=== PATIENT | female | born 1980 | race Caucasian/White ===

== ENCOUNTER 2020-12-23 08:08 | Outpatient (REF) | payer OTHER, SELFPAY | END 2020-12-23 08:09 | disposition home or self-care (01) | LOC: HO.MDS 08:08 | PROVIDERS: Visit Provider Internal Medicine Medical Oncology | DX: D50.9 Iron deficiency anemia, unspecified (principal) | CPT/HCPCS: 96365; 96366; 96375; J1200; J1750; Q0163 ==

== ENCOUNTER 2021-11-11 06:35 | Outpatient (REF) | payer OTHER, SELFPAY | END 2021-11-11 06:36 | disposition home or self-care (01) | LOC: HO.LHD 06:35 | PROVIDERS: Visit Provider Internal Medicine Medical Oncology | DX: Z13.89 Encounter for screening for other disorder (principal) ==

== ENCOUNTER 2021-11-20 12:44 | Outpatient (REF) | payer OTHER, SELFPAY ==
[2021-11-20 11:42] LABS: MANUAL DIFF FLAG NO
[2021-11-20 11:44] LABS: Basophils Percent Auto 0.2 % (0-2); Eosinophils Absolute Auto 0.1 X10*3/uL (0.0-0.4); Hematocrit 27.8 % (37.0-47.0); Hemoglobin 7.9 g/dl (12.0-16.0); Imm Gran Abs Auto 0.01 X10*3/uL (0.00-0.03); Imm Gran Pct Auto 0.2 % (0.0-0.4); Lymphocytes Absolute Auto 1.6 X10*3/uL (1.2-4.9); Lymphocytes Percent Auto 29.2 % (20-40); Mean Corpuscular HGB Conc 28.4 g/dl (31.0-35.0); Mean Corpuscular Hemoglobin 17.9 pg (27.0-33.0); Mean Platelet Volume 10.8 fL (9.4-12.3); Monocytes Absolute Auto 0.6 X10*3/uL (0.1-1.2); Monocytes Percent Auto 10.4 % (2-11); Neutrophils Absolute Auto 3.1 x10*3/uL (2.0-8.3); Platelet Count 316 X10*3/uL (160-400); Red Blood Count 4.41 X10*6/uL (4.20-5.50); Red Cell Distribution Width 15.7 % (11.0-16.0); White Blood Count 5.4 X10*3/uL (4.8-10.8)
[2021-11-20 12:03] LABS: Iron 11 mcg/dL (30-160); Percent Iron Saturation 2 % (15-50); Total Iron Binding Capacity 477 mcg/dL (228-428); Unsaturated Iron Binding 466 ug/dL
[2021-11-20 12:08] LABS: Alanine Aminotransferase 10 U/L (0-31); Albumin Level 3.5 g/dL (3.5-5.0); Alkaline Phosphatase 91 U/L (39-117); Anion Gap 8 (12-20); Aspartate Amino Transferase 8 U/L (5-31); Bilirubin Total 0.3 mg/dL (0.0-1.0); Blood Urea Nitrogen 8 mg/dL (9-16); Calcium 8.5 mg/dL (8.4-10.2); Carbon Dioxide 27 mmol/L (22-29); Chloride 107 mmol/L (96-108); Estimated Glomerular Filt Rate > 60; Glucose Random 109 mg/dL (60-115); Potassium 3.8 mmol/L (3.3-5.1); Sodium 138 mmol/L (135-145); Total Protein 6.8 g/dL (6.5-8.0)
[2021-11-20 12:21] LABS: Ferritin 2 ng/mL (10-250)
== END 2021-11-20 12:45 | disposition home or self-care (01) ==
LOC: HO.LHD 12:44
PROVIDERS: Visit Provider Internal Medicine Medical Oncology
DX: D64.9 Anemia, unspecified (principal)
CPT/HCPCS: 36415; 80053; 82728; 83540; 85025

== ENCOUNTER 2021-12-09 07:34 | Outpatient (REF) | payer OTHER, SELFPAY | END 2021-12-09 07:35 | disposition home or self-care (01) | LOC: HO.MDS 07:34 | PROVIDERS: Visit Provider Internal Medicine Medical Oncology | DX: D50.9 Iron deficiency anemia, unspecified (principal) | CPT/HCPCS: 96365; 96366; J1200; J1750 ==

== ENCOUNTER 2022-05-18 06:57 | Outpatient (REF) | payer OTHER, SELFPAY ==
[2022-05-18 12:38] LABS: MANUAL DIFF FLAG NO
[2022-05-18 12:40] LABS: Basophils Percent Auto 0.2 % (0-2); Eosinophils Absolute Auto 0.2 X10*3/uL (0.0-0.4); Eosinophils Percent Auto 5.1 % (0-4); Hematocrit 33.7 % (37.0-47.0); Hemoglobin 10.7 g/dl (12.0-16.0); Imm Gran Abs Auto 0.01 X10*3/uL (0.00-0.03); Imm Gran Pct Auto 0.2 % (0.0-0.4); Lymphocytes Absolute Auto 1.1 X10*3/uL (1.2-4.9); Mean Corpuscular HGB Conc 31.8 g/dl (31.0-35.0); Mean Corpuscular Hemoglobin 24.1 pg (27.0-33.0); Mean Corpuscular Volume 75.9 fL (80.0-98.0); Mean Platelet Volume 10.9 fL (9.4-12.3); Monocytes Absolute Auto 0.5 X10*3/uL (0.1-1.2); Monocytes Percent Auto 10.4 % (2-11); Neutrophils Absolute Auto 2.8 x10*3/uL (2.0-8.3); Neutrophils Percent Auto 60.1 % (45-73); Platelet Count 296 X10*3/uL (160-400); Red Blood Count 4.44 X10*6/uL (4.20-5.50); Red Cell Distribution Width 13.4 % (11.0-16.0); White Blood Count 4.7 X10*3/uL (4.8-10.8)
[2022-05-18 14:56] LABS: Ferritin 6 ng/mL (10-250)
[2022-05-18 15:40] LABS: Alanine Aminotransferase 20 U/L (0-31); Albumin Level 3.5 g/dL (3.5-5.0); Alkaline Phosphatase 106 U/L (39-117); Anion Gap 11 (12-20); Aspartate Amino Transferase 14 U/L (5-31); Bilirubin Total 0.3 mg/dL (0.0-1.0); Blood Urea Nitrogen 10 mg/dL (9-16); Calcium 8.4 mg/dL (8.4-10.2); Carbon Dioxide 24 mmol/L (22-29); Chloride 106 mmol/L (96-108); Estimated Glomerular Filt Rate > 60; Glucose Random 285 mg/dL (60-115); Iron 27 mcg/dL (30-160); Percent Iron Saturation 7 % (15-50); Potassium 4.2 mmol/L (3.3-5.1); Sodium 137 mmol/L (135-145); Total Iron Binding Capacity 385 mcg/dL (228-428); Total Protein 6.5 g/dL (6.5-8.0); Unsaturated Iron Binding 358 ug/dL
[2022-05-18 16:42] LABS: Vitamin D 25-OH Total 15.8 ng/mL (>30)
== END 2022-05-18 06:58 | disposition home or self-care (01) ==
LOC: HO.LHD 06:57
PROVIDERS: Visit Provider Internal Medicine Medical Oncology
DX: D50.9 Iron deficiency anemia, unspecified (principal)
CPT/HCPCS: 36415; 80053; 82306; 82728; 83540; 85025

== ENCOUNTER 2022-05-26 07:15 | Outpatient (REF) | payer OTHER, SELFPAY | END 2022-05-26 07:16 | disposition home or self-care (01) | LOC: HO.MDS 07:15 | PROVIDERS: Visit Provider Internal Medicine Medical Oncology | DX: D50.9 Iron deficiency anemia, unspecified (principal) | CPT/HCPCS: 96365; 96366; J1200; J1750 ==

== ENCOUNTER 2022-08-04 11:02 | Outpatient (REF) | payer OTHER, SELFPAY ==
--- NOTE | ~2022-08-04 | MM_ITS ---
EXAMINATION: MM SCREENING DIGITAL BREAST TOMOSYNTHESIS, BILATERAL CLINICAL INFORMATION: Screening. Asymptomatic. The lifetime risk of breast cancer based on the Tyrer-Cuzick Model is 8.4%. COMPARISON: Mammography: None TECHNIQUE: Digital breast tomosynthesis is performed in both the craniocaudal and mediolateral oblique views along with computer-aided detection (CAD). Synthesized 2D images are generated from the tomosynthesis. FINDINGS: There are scattered areas of fibroglandular density (ACR BI-RADS breast composition Category b). There are no significant masses, abnormal calcifications, or other abnormalities. MM/MM tomosynthesis screening BI IMPRESSION: No mammographic evidence of malignancy. ASSESSMENT: BI-RADS 1: Negative RECOMMENDATION: Routine annual mammography screening. This patient's information was entered into a reminder system with a target due date for their next mammogram.
== END 2022-08-04 11:03 | disposition home or self-care (01) ==
LOC: HO.MAMMO 11:02
PROVIDERS: PCP Internal Medicine; Visit Provider Internal Medicine
DX: Z12.31 Encounter for screening mammogram for malignant neoplasm of breast (principal)
CPT/HCPCS: 77063; 77067

== ENCOUNTER 2023-01-29 05:36 | Outpatient (REF) | payer OTHER, SELFPAY ==
[2023-01-29 08:20] LABS: Hematocrit 30.2 % (37.0-47.0); Hemoglobin 9.2 g/dl (12.0-16.0); Mean Corpuscular HGB Conc 30.5 g/dl (31.0-35.0); Mean Corpuscular Hemoglobin 20.8 pg (27.0-33.0); Mean Corpuscular Volume 68.3 fL (80.0-98.0); PLT CLUMP 1; Red Blood Count 4.42 X10*6/uL (4.20-5.50)
[2023-01-29 08:26] LABS: WBC ABN SCTR FOR CBC 1
[2023-01-29 08:46] LABS: Atypical Lymphs Percent Manual 1 % (0-6); Band Neutrophils Percent 0 % (3-5); Basophils Percent Manual 1 % (0-2); Eosinophils Percent Manual 5 % (0-4); Lymphocytes Percent Manual 33 % (20-40); Monocytes Percent Manual 6 % (2-11); Neutrophils Percent Manual 54 % (45-73)
[2023-01-29 08:49] LABS: Hypochromasia 1+ (5-14) /OIF; Microcytosis 2+ (15-30) /OIF; Ovalocytes 1+ (5-14) /OIF; Polychromasia 1+ (0-2) /OIF; RBC Morphology NOTED
[2023-01-29 08:50] LABS: Platelet Morphology Comment NORMAL
[2023-01-29 08:51] LABS: Atypical Lymph Absolute Manual 0.1 x10*3/uL; Basophils Abs Manual 0.1 X10*3/uL (0.0-0.2); Eosinophils Absolute Manual 0.3 X10*3/uL (0.0-0.4); Lymphocytes Absolute Manual 1.9 X10*3/uL (1.2-4.9); Monocytes Absolute Manual 0.3 X10*3/uL (0.1-1.2); Neutrophils Absolute Manual 3.1 X10*3/uL (2.0-8.3); White Blood Count 5.8 X10*3/uL (4.8-10.8)
[2023-01-29 08:58] LABS: Platelet Count 254 X10*3/uL (160-400)
[2023-01-29 08:59] LABS: Platelet Estimate NORMAL (NORMAL)
[2023-01-29 09:04] LABS: Ferritin 9 ng/mL (10-250)
[2023-01-29 09:14] LABS: Alanine Aminotransferase 24 U/L (0-31); Albumin Level 3.9 g/dL (3.5-5.0); Alkaline Phosphatase 111 U/L (39-117); Anion Gap 18 (12-20); Aspartate Amino Transferase 23 U/L (5-31); Bilirubin Total 0.4 mg/dL (0.0-1.0); Blood Urea Nitrogen 11 mg/dL (9-16); Calcium 9.2 mg/dL (8.4-10.2); Carbon Dioxide 15 mmol/L (22-29); Chloride 107 mmol/L (96-108); Estimated Glomerular Filt Rate > 60; Glucose Random 139 mg/dL (60-115); Iron 46 mcg/dL (30-160); Percent Iron Saturation 11 % (15-50); Potassium 4.7 mmol/L (3.3-5.1); Sodium 135 mmol/L (135-145); Total Iron Binding Capacity 415 mcg/dL (228-428); Total Protein 7.6 g/dL (6.5-8.0); Unsaturated Iron Binding 369 ug/dL
== END 2023-01-29 05:37 | disposition home or self-care (01) ==
LOC: HO.LHD 05:36
PROVIDERS: Visit Provider Internal Medicine Medical Oncology
DX: D50.9 Iron deficiency anemia, unspecified (principal)
CPT/HCPCS: 36415; 80053; 82728; 83540; 85007; 85027

== ENCOUNTER 2023-01-29 07:50 | Outpatient (REF) | payer OTHER, SELFPAY | END 2023-01-29 07:51 | disposition home or self-care (01) | LOC: HO.LAB 07:50 | PROVIDERS: PCP Internal Medicine; Visit Provider Internal Medicine Medical Oncology | DX: Z13.89 Encounter for screening for other disorder (principal) ==

== ENCOUNTER 2023-02-22 08:33 | Outpatient (REF) | payer OTHER, SELFPAY | END 2023-02-22 08:34 | disposition home or self-care (01) | LOC: HO.MDS 08:33 | PROVIDERS: Visit Provider Internal Medicine Medical Oncology | DX: D50.9 Iron deficiency anemia, unspecified (principal) | CPT/HCPCS: 96365; J1756 ==

== ENCOUNTER 2023-03-04 10:19 | Outpatient (REF) | payer OTHER, SELFPAY | END 2023-03-04 10:20 | disposition home or self-care (01) | LOC: HO.MDS 10:19 | PROVIDERS: PCP Internal Medicine; Visit Provider Internal Medicine Medical Oncology | DX: D50.9 Iron deficiency anemia, unspecified (principal) | CPT/HCPCS: 96365; J1756 ==

== ENCOUNTER 2023-03-11 10:06 | Outpatient (REF) | payer OTHER, SELFPAY | END 2023-03-11 10:07 | disposition home or self-care (01) | LOC: HO.MDS 10:06 | PROVIDERS: Visit Provider Internal Medicine Medical Oncology | DX: D50.9 Iron deficiency anemia, unspecified (principal) | CPT/HCPCS: 96365; J1756 ==

== ENCOUNTER 2023-03-18 10:03 | Outpatient (REF) | payer OTHER, SELFPAY ==
[2023-03-18 11:06] LABS: MANUAL DIFF FLAG NO
[2023-03-18 11:08] LABS: Basophils Percent Auto 0.4 % (0-2); Eosinophils Absolute Auto 0.4 X10*3/uL (0.0-0.4); Hematocrit 40.9 % (37.0-47.0); Hemoglobin 12.5 g/dl (12.0-16.0); Imm Gran Abs Auto 0.01 X10*3/uL (0.00-0.03); Imm Gran Pct Auto 0.2 % (0.0-0.4); Lymphocytes Absolute Auto 1.3 X10*3/uL (1.2-4.9); Mean Corpuscular HGB Conc 30.6 g/dl (31.0-35.0); Mean Corpuscular Hemoglobin 21.2 pg (27.0-33.0); Mean Corpuscular Volume 69.2 fL (80.0-98.0); Mean Platelet Volume 10.9 fL (9.4-12.3); Monocytes Absolute Auto 0.4 X10*3/uL (0.1-1.2); Monocytes Percent Auto 7.9 % (2-11); Neutrophils Absolute Auto 2.6 x10*3/uL (2.0-8.3); Neutrophils Percent Auto 55.5 % (45-73); Platelet Count 308 X10*3/uL (160-400); Red Blood Count 5.91 X10*6/uL (4.20-5.50); Red Cell Distribution Width 22.4 % (11.0-16.0); White Blood Count 4.7 X10*3/uL (4.8-10.8)
== END 2023-03-18 10:04 | disposition home or self-care (01) ==
LOC: HO.MDS 10:03
PROVIDERS: Visit Provider Internal Medicine Medical Oncology
DX: D50.9 Iron deficiency anemia, unspecified (principal)
CPT/HCPCS: 36415; 85025; 96365; J1756

== ENCOUNTER 2023-08-13 16:52 | Inpatient (IN) | payer OTHER, SELFPAY ==
--- NOTE | ~2023-08-13 | CT_ITS ---
EXAMINATION: CT HUMERUS WITH CONTRAST, RIGHT CLINICAL INFORMATION: Possible abscess. COMPARISON: None available. TECHNIQUE: Contiguous contrast-enhanced CT scan images of the right upper extremity performed after the intravenous administration of 85 mL of Omnipaque 350. This CT examination was performed using dose optimization techniques as appropriate, variously including the following: *Automated exposure control *Adjustment of mA and/or kV according to patient size (this includes techniques or standardized protocols for targeted exams where dose is matched to indication/reason for exam; i.e. extremities or head) *Use of iterative reconstruction technique DLP: 163 mGy-cm FINDINGS: The bone mineralization is normal. There is no fracture. There is no fluid collection within the axilla. The soft tissues are unremarkable CT/CT humerus RT w IV con IMPRESSION: No significant abnormality
[2023-08-13 16:56] VITALS: BP 119/86; PULSE 98; RESP 18; TEMP 36.8; O2SAT 99; BMI 32.0
--- NOTE | 2023-08-13 16:57 | ED_ITS ---
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 ? Patient reports that about 2 weeks ago she was diagnosed with COVID-19 and also had an abscess in the right axilla She states that she was treated with clindamycin which she is still taking has been on for least 10 days She reports fevers at home She took ibuprofen prior to coming to the hospital and arrives afebrile Patient reports frequent abscesses in her axilla bilaterally Related Data Home Medications Medication Instructions Recorded Confirmed clonazepam 1 mg tablet 1 mg PO QID 12/17/20 12/17/20 metformin 1,000 mg tablet 1,000 mg PO DAILY 12/17/20 12/17/20 oxycodone 5 mg tablet 5 mg PO Q6H PRN Pain 12/17/20 12/17/20 topiramate 50 mg tablet 50 mg PO BID 12/17/20 12/17/20 tramadol 50 mg tablet 50 mg PO BID PRN Pain 12/17/20 12/17/20 albuterol sulfate 2.5 mg/3 mL 2.5 mg inhalation Q4-6H PRN 06/09/22 06/09/22 (0.083 %) solution for nebulization wheezing albuterol sulfate 90 mcg/actuation 2 puff inhalation Q4-6H PRN dyspnea 06/09/22 06/09/22 aerosol inhaler (Ventolin HFA) butalbital 50 mg-acetaminophen 325 1 cap PO Q4H PRN 06/09/22 06/09/22 mg-caffeine 40 mg-codeine 30 mg cap carbamazepine 100 mg 200 mg PO BID 06/09/22 06/09/22 tablet,extended release,12 hr clonazepam 0.5 mg tablet 0.5 mg PO TID PRN anxiety 06/09/22 06/09/22 fluticasone propionate 50 2 spray intranasal DAILY 06/09/22 06/09/22 mcg/actuation nasal spray,suspension galcanezumab-gnlm 120 mg/mL mg subcut Q4W 06/09/22 06/09/22 subcutaneous pen injector (Emgality Pen) ibuprofen 600 mg tablet 600 mg PO BID 06/09/22 06/09/22 ipratropium bromide 42 mcg (0.06 2 spray intranasal TID 06/09/22 06/09/22 %) nasal spray omeprazole 20 mg capsule,delayed 20 mg PO QAM 06/09/22 06/09/22 release prazosin 2 mg capsule 2 mg PO BEDTIME 06/09/22 06/09/22 quetiapine 100 mg tablet 100 mg PO BEDTIME 06/09/22 06/09/22 tiotropium bromide 1.25 2 puff inhalation DAILY 06/09/22 06/09/22 mcg/actuation mist for inhalation (Spiriva Respimat) Previous Rx's Medication Instructions Recorded cholecalciferol (vitamin D3) 50 50 mcg PO DAILY #90 tabs 05/18/22 mcg (2,000 unit) tablet (Vitamin D3) blood sugar diagnostic (FreeStyle #100 ea 06/15/22 Test strips) blood sugar diagnostic (FreeStyle #100 ea 08/04/22 Lite Strips) blood-glucose meter (FreeStyle #1 ea 08/04/22 Lite Meter kit) svbklxuenj-kjozpicthruup-wbvnjcgo 1 tab PO Q4H PRN migraines 30 days 08/04/22 50 mg-325 mg-40 mg tablet #60 tabs galcanezumab-gnlm 120 mg/mL 120 mg subcut QMONTH 90 days #3 mL 08/04/22 subcutaneous pen injector (Emgality Pen) metformin 500 mg tablet 500 mg PO BID 90 days #180 tabs 08/04/22 semaglutide 1 mg/dose (4 mg/3 mL) 1 mg (0.75 mL) subcut QWEEK 90 02/15/23 subcutaneous pen injector (Ozempic) days #9.75 mL lidocaine 5 % topical patch 1 patch topical DAILY #10 ea 03/17/23 (Lidoderm) lidocaine 4 % topical cream 1 appl topical BID #6 grams 03/19/23 lancets 28 gauge (FreeStyle #100 ea 06/08/23 Lancets) Allergies Allergy/AdvReac Type Severity Reaction Status Date / Time honey Allergy Severe mouth Verified 08/13/23 22:26 swelling, trouble breathing Penicillins [PENICILLINS] Allergy Intermediate HIVES Verified 08/13/23 22:26 sulfamethoxazole Allergy Mild HIVES Verified 08/13/23 22:26 [From BACTRIM] trimethoprim [From BACTRIM] Allergy Mild HIVES Verified 08/13/23 22:26 doxycycline Allergy Unknown Hives Verified 08/13/23 22:26 penicillin V Allergy Unknown anaphylaxis Verified 08/13/23 22:26 Sulfa (Sulfonamide Allergy Unknown anaphylaxis Verified 08/13/23 22:26 Antibiotics) dextran sulfate AdvReac Mild ITCHY Verified 08/13/23 22:26 [DEXTRAN SULFATE] SENSATION INFUSION COMPLETED AFTER IV BENADRYL bactrim Allergy Severe hives Uncoded 06/10/22 07:17 From Honey Bee Venom Protein Allergy Mild DYSPNEA/RASH Uncoded 06/10/22 07:17 (APIS MELLIFERA VE) peanuts Allergy Unknown anaphylaxis Uncoded 06/10/22 07:17 Review of Systems 2 Constitutional: Constitutional: Reports chills, Reports fever(s) and Reports weakness ENT: Denies vertigo Cardiovascular: Cardiovascular: Denies chest pain and Denies dyspnea Respiratory: Respiratory: Denies dyspnea Gastrointestinal: Gastrointestinal: Denies abdominal pain, Denies nausea and Denies vomiting Musculoskeletal: Musculoskeletal: Denies back pain Integumentary/Breasts: Skin/Breast: Reports skin pain Comments: Reports rash last abscess in right axilla Neurologic: Denies vertigo and Reports weakness PMFSH Past Medical History Medical History (Updated 08/13/23 @ 23:26 by Ezequiel De Anda) Iron deficiency anemia Surgical History (Updated 06/10/22 @ 07:17 by Zenobia Solares) History of tumor History of appendectomy History of cholecystectomy Family History Family History (System 06/10/22 @ 07:17 by Zenobia Solares) Mother Diabetes Hypertension Ovarian cancer Kidney disease Father Colon cancer Maternal Aunt Breast cancer Family/Other Mental health disorder Social History Social History (System 06/10/22 @ 07:17 by Zenobia Solares) Housing: Apartment Alcohol intake: never Patient Tobacco Use Status: Never used Tobacco Smoked in Last 30 Days: No e-Cigarette/Vaping Use: Never Used Second Hand Smoke Exposure: No Use of substances other than those prescribed or required for medical reasons: No Advance Directives: No Advance Directives Information Provided: No service: No Current occupational status: disabled Cognitive needs: Yes Hearing needs: No Vision needs: Yes Physical Exam ED Vital Signs: Vital Signs - 24 hr 08/13/23 16:56 08/14/23 01:56 Temperature 98.3 F 98.0 F Pulse Rate 98 78 Respiratory Rate 18 18 Blood Pressure 119/86 140/85 H Pulse Oximetry 99 98 Oxygen Delivery Method Room Air Room Air BMI result Body Mass Index 32.0 Const General: healthy appearing, comfortable, no acute distress, alert and awake Nutritional Appearance: well nourished Orientation/consciousness: patient oriented x3 HENMT Head: Yes normocephalic and Yes atraumatic Eyes Eyelids: Yes eyelids normal Conjunctivae: conjunctivae normal Sclerae: sclerae normal Corneas: corneas normal Pupils: Equal, round and reactive pupils present EOM: EOMs intact bilaterally Neck Neck: Yes full ROM Resp Effort & Inspection: normal respiratory effort, able to speak in complete sentences and not labored Cardio Rate: regular rate Rhythm: regular rhythm Skin Other: Patient has a large area of erythema mostly to medial aspect of the right upper arm extending towards the axilla. There is an area of increased tenderness and induration just distal to the axilla. No obvious fluctuance General skin exam: elasticity normal Neuro General: patient oriented x3 Cranial nerves: Yes Equal, round and reactive pupils present and Yes Bilaterally intact EOM present Cognition (Neuro): normal cognition Course Course Course Narrative: This is an RME: Additional HPI, ROS, PE not included below will be deferred to primary provider. 43 yo f presents w/ infection to R axilla X 3 weeks. Was recently covid + Plan- [facility] Reevaluation(s) Reevaluation #1: Patient's imaging confirms no drainable abscess. However given the failed outpatient oral treatment, discussed the hospitalist who will admit the patient for IV antibiotics Time: 02:08 Medications Administered Discontinued Medications Generic Name Dose Route Start Last Admin Trade Name Freq PRN Reason Stop Dose Admin Ceftriaxone Sodium 1 gm/ 50 mls @ 100 mls/hr 08/14/23 01:26 08/14/23 01:59 Sodium Chloride IV 08/14/23 01:55 100 mls/hr ONCE ONE Administration Iohexol 85 ml 08/13/23 23:57 08/13/23 23:58 Iohexol 350 Mg/Ml 100 Ml Infus..Btl IV 08/13/23 23:58 85 ml ONCE ONE Administration Morphine Sulfate 4 mg 08/14/23 00:22 08/14/23 00:28 Morphine Sulfate 4 Mg/Ml Cartridge IVPUSH 08/14/23 00:23 4 mg ONCE ONE Administration Protocol Ondansetron HCl 4 mg 08/14/23 00:22 08/14/23 00:28 Ondansetron Hcl 4 Mg/2 Ml Vial IVPUSH 08/14/23 00:23 4 mg ONCE ONE Administration Medical Decision Making Medical Decision Making [facility] Narrative: 43-year-old female presents for evaluation of skin changes to the right axilla. She has been on clindamycin for 10 days and reports the symptoms are worsening. On exam there is no clear drainable abscess but the exam is limited the patient is withdrawing from even light palpation. Will get a CT scan imaging to help rule out abscess the patient will not tolerate an ultrasound to see of the area would be amenable to I&D. Labs are also pending Differential Diagnosis Differential Diagnoses: The differential diagnosis associated with the presentation includes Cellulitis Abscess Hidradenitis Sepsis Diabetes Lab Data [facility] Lab Attestation statement: I reviewed the patient's lab results. No leukocytosis with a white count of 6.7 care. No anemia. Normal electrolytes. Normal renal function no evidence of DKA. Lactate normal at 1.1 08/13/23 22:43 08/13/23 22:43 Labs: Lab Results 08/13/23 08/13/23 Range/Units 22:43 22:44 WBC 6.7 (4.8-10.8) X10*3/uL RBC 5.26 (4.20-5.50) X10*6/uL Hgb 14.0 (12.0-16.0) g/dl Hct 42.2 (37.0-47.0) % MCV 80.2 (80.0-98.0) fL MCH 26.6 L (27.0-33.0) pg MCHC 33.2 (31.0-35.0) g/dl RDW 12.6 (11.0-16.0) % Plt Count 301 (160-400) X10*3/uL MPV 10.1 (9.4-12.3) fL Immature Gran % (Auto) 0.3 (0.0-0.4) % Neut % (Auto) 55.3 (45-73) % Lymph % (Auto) 31.3 (20-40) % [place] % (Auto) 8.8 (2-11) % Eos % (Auto) 4.0 (0-4) % Baso % (Auto) 0.3 (0-2) % Lymph # (Auto) 2.1 (1.2-4.9) X10*3/uL [place] # (Auto) 0.6 (0.1-1.2) X10*3/uL Eos # (Auto) 0.3 (0.0-0.4) X10*3/uL Baso # (Auto) 0.0 (0.0-0.2) X10*3/uL Abs Immat Gran (auto) 0.02 (0.00-0.03) X10*3/uL Absolute Neuts (auto) 3.7 (2.0-8.3) x10*3/uL Absolute Nucleated RBC 0.000 (0.0-0.012) X10*3/uL Nucleated RBC % (auto) 0.0 (0.0-0.2) /100WBC ESR 14 (0-20) MM/HR Sodium 137 (135-145) mmol/L Potassium 4.1 (3.3-5.1) mmol/L Chloride 106 (96-108) mmol/L Carbon Dioxide 19 L (22-29) mmol/L Anion Gap 16 (12-20) BUN 8 L (9-16) mg/dL Creatinine 0.70 (0.5-1.4) mg/dL Estim Creat Clear Calc 93.3 Estimated GFR > 60 Random Glucose 98 (60-115) mg/dL Lactic Acid 1.5 (0.5-2.0) mmol/L Calcium 9.2 (8.4-10.2) mg/dL Total Bilirubin 0.4 (0.0-1.0) mg/dL AST 19 (5-31) U/L ALT 15 (0-31) U/L Alkaline Phosphatase 110 (39-117) U/L C-Reactive Protein 1.74 H (< or = 0.50) mg/dL Total Protein 8.1 H (6.5-8.0) g/dL Albumin 4.0 (3.5-5.0) g/dL Beta-Hydroxybutyrate 0.13 (0.02-0.27) mmol/L Beta HCG, Quant < 2 mIU/mL Discharge Plan Discharge Clinical Impression: Cellulitis of right arm Patient Disposition: Admitted As Inpatient Prescriptions: No Action cholecalciferol (vitamin D3) [Vitamin D3] 50 mcg (2,000 unit) Tablet 50 mcg PO DAILY Qty: 90 4RF (DME) FreeStyle Test Strip See Rx Instructions .Route Qty: 100 2RF Rx Instructions: Use 1 test strip three times a day nqhceevfyl-mnslwdojvotjo-uaip 50-325-40 mg tablet 1 tab PO Q4H PRN (Reason: migraines) 30 Days Qty: 60 0RF metformin 500 mg tablet 500 mg PO BID 90 Days Qty: 180 1RF Emgality Pen 120 mg/mL pen injector 120 mg SUBCUT QMONTH 90 Days Qty: 3 2RF (DME) blood-glucose meter [FreeStyle Lite Meter] Kit See Rx Instructions .Route Qty: 1 0RF Rx Instructions: As directed (DME) FreeStyle Lite Strips Strip See Rx Instructions .Route Qty: 100 1RF Rx Instructions: Use 1 test strip once a day Ozempic 1 mg/dose (4 mg/3 mL) pen injector 1 mg subcut QWEEK 90 Days Qty: 9.75 1RF (DME) lancets [FreeStyle Lancets] 28 gauge misc See Rx Instructions .Route Qty: 100 2RF Rx Instructions: Use 1 lancet once a day clonazepam 1 mg Tablet 1 mg PO QID tramadol 50 mg Tablet 50 mg PO BID PRN (Reason: Pain) metformin 1,000 mg Tablet 1,000 mg PO DAILY oxycodone 5 mg Tablet 5 mg PO Q6H PRN (Reason: Pain) topiramate 50 mg Tablet 50 mg PO BID lidocaine [Lidoderm] 5 % Adhesive Patch,Medicated 1 patch TOPICAL DAILY Qty: 10 2RF Rx Instructions: leave on most painful area for up to 12 hrs prior to IV Start lidocaine 4 % Cream 1 appl TOPICAL BID Qty: 6 0RF Rx Instructions: Use prior to IV start albuterol sulfate [Ventolin HFA] 90 mcg/actuation HFA aerosol inhaler 2 puff inhalation Q4-6H PRN (Reason: dyspnea) Spiriva Respimat 1.25 mcg/actuation mist 2 puff inhalation DAILY albuterol sulfate 2.5 mg /3 mL (0.083 %) solution for nebulization 2.5 mg inhalation Q4-6H PRN (Reason: wheezing) omeprazole 20 mg capsule,delayed release(DR/EC) 20 mg PO QAM prazosin 2 mg capsule 2 mg PO BEDTIME quetiapine 100 mg tablet 100 mg PO BEDTIME clonazepam 0.5 mg tablet 0.5 mg PO TID PRN (Reason: anxiety) carbamazepine 100 mg tablet extended release 12 hr 200 mg PO BID Emgality Pen 120 mg/mL pen injector subcut Q4W fluticasone propionate 50 mcg/actuation spray,suspension 2 spray intranasal DAILY ipratropium bromide 42 mcg (0.06 %) spray,non-aerosol 2 spray intranasal TID ibuprofen 600 mg tablet 600 mg PO BID ziumhktpqg-aflkaxagfk-wnc-cod 42-084-10-30 mg capsule 1 cap PO Q4H PRN
--- NOTE | 2023-08-13 18:13 | PC.NURSE ---
pt refusing lab draw in [place]. states she only gets blood drawn through an IV
--- NOTE | 2023-08-13 18:14 | MHC.EDTECH ---
This pct attempted to draw labs but patient stated she only gets blood drawn through iv. RN Aware
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
--- OUTSIDE RECORDS SUMMARY | 2023-08-13 20:24 | XMS_ITS | Continuity of Care Document ---
Author Name Unknown Organization [facility] Address [address] [place] [address]- Care Team Providers Care Systems Security Analyst Name Role Phone Anupama COERAS, Len Thomas Primary Care Physician Encounter [facility] Date(s): 06/18/21 - 07/18/21 [facility] [address] [place] [address]- Allergies, Adverse Reactions, Alerts Substance Reaction Severity Status doxycycline Active penicillin 1 Active gabapentin Active Bactrim Active Nuts Anaphylactic 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 Tolerated dose of cefepime on 10/2020 admission 2honey Immunizations Given and Recorded Vaccine Date Status Refusal Reason SARS-CoV-2 (COVID-19) Ad26 vaccine 03/01/21 Given Not Given Vaccine Date Status Refusal Reason pneumococcal 23-valent vaccine 03/19/19 Not Given Patient Refuses Medications acetaminophen/butalbital/caffeine 300 mg-50 mg-40 mg oral capsule TAKE 1 CAPSULE BY MOUTH EVERY 6 HOURS , NOT TO EXCEED 6 CAPS A DAY Start Date: 05/14/21 Status: Ordered acetaminophen/butalbital/caffeine 300 mg-50 mg-40 mg oral capsule 1 capsule, By Mouth, Every 6 hours, not to exceed 6 capsules/day, # 12 capsule, 1 Refills, Maintenance, 05/14/21 13:11:00 EDT, Capsule, [id number], 1 capsule By Mouth Every 6 hours,Instr:not to exceed 6 capsules/day, 153, cm, 05/14/21 12:43:00... Start Date: 05/14/21 Status: Ordered Aerochamber See Instructions, # 1 kit, Refills 11, Tot. Refills 11, Maintenance, use with mdi, 01/09/20 10:38:00 EST, Compound, 153, cm, 01/09/20 9:49:00 EST, Height, 89.6, kg, 12/26/19 19:50:00 EST, Dry Weight Start Date: 01/09/20 Status: Ordered albuterol 0.083% inhalation solution 3 mL = 2.5 mg, Inhalation, Every 6 hours, # 120 each, 3 Refills, Maintenance, 02/05/20 11:51:00 EDT, Solution, [facility]/pharmacy #[id number], 153, cm, 02/01/20 9:49:00 EDT, Height, 89.6, kg, 12/26/19 19:50:00 EST, Dry Weight Start Date: 02/05/20 Status: Ordered Alcohol Wipes See Instructions, # 6 each, Refills 11, Tot. Refills 11, Maintenance, DX: DM E11.9 HEIGHT- 5' WEIGHT- 175LBS LIFETIME NEED , 02/03/21 14:21:00 EDT, Supply Start Date: 02/03/21 Status: Ordered Bedpads See Instructions, # 120 each, Refills 11, Tot. Refills 11, Maintenance, DX: FIBROMYALGI M79.7 HEIGHT- 5' WEIGHT- 175LBS LIFETIME NEED , 02/03/21 14:22:00 EDT, Supply Start Date: 02/03/21 Status: Ordered Boost plus protein shake Boost plus protein shake, See Instructions, # 1 pack/packet, Refills 0, Tot. Refills 0, Maintenance, Dx. failure to thrive in adult, 05/14/21 7:34:00 EDT, Supply, 153, cm, 05/07/21 7:55:00 EDT, Height, 79.6, kg, 12/30/20 13:59:00 EST, Dry Weight Start Date: 05/14/21 Status: Ordered carBAMazepine 100 mg oral tablet, extended release 200 mg, 2, tablet, By Mouth, 2 times a day, # 360 tablet, Refills 1, Tot. Refills 1, Maintenance, 01/29/21 15:01:00 EST, Route to Pharmacy Electronically, [facility]/pharmacy #[id number], 153, cm, 01/01/21 8:33:00 EST, Height, 79.6, kg, 12/30/20 13:59:00 EST, Dry... Start Date: 01/29/21 Stop Date: 07/28/21 Status: Ordered circulatoin boots circulatoin boots, See Instructions, # 1 each, Refills 0, Tot. Refills 0, Maintenance, 1 pair circulation boots Dx. bilateral lower extremity edema, poor circulation, 05/14/21 7:46:00 EDT, Supply, 153, cm, 05/07/21 7:55:00 EDT, Height, 79.6, kg, 02/0... Start Date: 05/14/21 Status: Ordered clindamycin 300 mg oral capsule TAKE 1 CAPSULE BY MOUTH EVERY 6 HOURS FOR 10 DAYS Start Date: 05/07/21 Status: Ordered clonazePAM 0.5 mg oral tablet 1 tablet = 0.5 mg, By Mouth, 2 times a day, # 60 tablet, 0 Refills, Maintenance, 05/07/21 9:18:00 EDT, Tablet, [facility]/pharmacy #[id number], Partial fill upon patient request if the prescription is for a schedule II opioid drug., 153, cm, 05/07/21 7:55:00 EDT,... Start Date: 05/07/21 Status: Ordered Compression Stockings See Instructions, # 1 each, Refills 2, Tot. Refills 2, Maintenance, surgical, thigh high length 20-30 mm Hg Dx. varicose veins, bilateral leg pain, 05/14/21 7:43:00 EDT, Supply, 153, cm, 05/07/21 7:55:00 EDT, Height, 79.6, kg, 12/30/20 13:59:00 EST,... Start Date: 05/14/21 Status: Ordered [facility] VITAMIN D3 25 MCG SOFTGEL TAKE 1 CAPSULE BY MOUTH EVERY DAY Start Date: 05/07/21 Status: Ordered DIABETIC SHOES with inserts DIABETIC SHOES with inserts, See Instructions, # 1 each, Refills 1, Tot. Refills 1, Maintenance, DX: DM E11.9 Soumya Jaquez , 05/19/21 14:57:00 EDT, Compound Start Date: 05/19/21 Status: Ordered Diapers See Instructions, # 120 each, Refills 11, Tot. Refills 11, Maintenance, LARGE PT USES 4 PER DAY DX:JORDANA M79.7 HEIGHT- 5' WEIGHT- 175LBS LIFETIME NEED dx n39.46, 06/23/21 11:30:00 EDT, Supply Start Date: 06/23/21 Status: Ordered docusate sodium 100 mg oral capsule 1 capsule, By Mouth, 2 times a day, PRN NEEDED FOR CONSTIPATION, # 60 capsule, 5 Refills, Maintenance, 12/10/20 17:49:00 EST, [id number], 153, cm, 12/10/20 15:22:00 EST, Height, 79.6, kg, 11/21/20 21:34:00 EST, Dry Weight Start Date: 12/10/20 Status: Ordered Dulera 200 mcg-5 mcg/inh inhalation aerosol 2 puffs, Inhalation, 2 times a day, Soumya Jaquez, # 13 Gm, 3 Refills, Maintenance, 09/19/19 13:54:11 EDT, Aerosol, 2 puffs Inhalation 2 times a day,Instr:Soumya Jaquez Start Date: 09/19/19 Status: Ordered duloxetine 60 mg oral enteric coated capsule 1 capsule, By Mouth, 2 times a day, # 180 capsule, 1 Refills, Maintenance, 06/07/21 14:13:00 EDT, [id number], 153, cm, 05/14/21 12:43:00 EDT, Height, 79.6, kg, 12/30/20 13:59:00 EST, Dry Weight Start Date: 06/07/21 Status: Ordered Emgality Prefilled Pen 120 mg/mL subcutaneous solution = 120 mg, Subcutaneous Infusion, Every 28 days, # 1 each, 11 Refills, Maintenance, 07/03/20 14:17:00 EDT, [id number], 1st dose broke NEEDS ANOTHER, 153, cm, 04/23/20 14:32:00 EDT, Height, 89.6, kg, 12/26/19 19:50:00 EST, Dry Weight Start Date: 07/03/20 Status: Ordered EpiPen 2-Freeman 0.3 mg injectable kit See Instructions, Intramuscular Once, # 2 cartridge, 0 Refills, Soft Stop, 05/11/19 15:39:44 EDT Start Date: 05/11/19 Status: Ordered Flonase 2 sprays, Nares, Both, 2 times a day, 0 Refills, Maintenance, 05/05/19 10:45:08 EDT Start Date: 05/05/19 Status: Ordered Freestyle Flash Glucose Meter See [...] 60 tablet, Refills 1, Tot.Refills 1, Maintenance, 07/21/20 23:30:00 EDT, Route to Pharmacy Electronically, [facility]/pharmacy #[id number], 153, cm, 07/09/20 13:32:00 EDT, Height, 89.6, kg,... Start Date: 07/21/20 Status: Ordered ipratropium nasal 42 mcg/inh spray 2 sprays, Nares, Both, 3 times a day, # 15 mL, 11 Refills, Maintenance, 01/09/20 10:37:00 EST, [place], [facility]/pharmacy #[id number], 2 sprays Nares, Both 3 times a day, 153, cm, 01/09/20 9:49:00 EST, Height, 89.6, kg, 12/26/19 19:50:00 EST, Dry Weight Start Date: 01/09/20 Status: Ordered ketoconazole 2% topical shampoo 1 application, Topically, Once, # 120 mL, 1 Refills, Soft Stop, 05/07/21 8:34:00 EDT, Shampoo, [facility]/pharmacy #[id number], 1 application Topically Once, 153, cm, 05/07/21 7:55:00 EDT, Height, 79.6, kg, 12/30/20 13:59:00 EST, Dry Weight Start Date: 05/07/21 Status: Ordered KlonoPIN 0.5 mg oral tablet 1 tablet = 0.5 mg, By Mouth, 2 times a day, # 60 tablet, 0 Refills, Maintenance, 07/01/21 15:21:00 EDT, Tablet, [facility]/pharmacy #[id number], 153, cm, 06/23/21 9:40:00 EDT, Height, 79.6, kg, 12/30/20 13:59:00 EST, Dry Weight Start Date: 07/01/21 Status: Ordered lidocaine 1.8% topical film 1 patch, Topically, Daily, leave on up to 12 hours, # 30 each, 11 Refills, Maintenance, 02/22/20 9:39:00 EDT, Film, [facility]/pharmacy #[id number], 1 patch Topically Daily,Instr:leave on up to 12 hours, 153, cm,02/01/20 9:49:00 EDT, Height, 89.6, kg, 12/26/19 19... Start Date: 02/22/20 Status: Ordered Linzess 290 mcg oral capsule TAKE 1 CAPSULE BY MOUTH EVERY DAY Start Date: 05/07/21 Status: Ordered Newberry 0.65% nasal spray 2 sprays, Nares, Both, 4 times a day, # 1 each, 0 Refills, Maintenance, 06/23/21 9:54:00 EDT, [facility]/pharmacy #[id number], Partial fill upon patient request if the prescription is for a schedule II opioid drug., 2 sprays Nares, Both 4 times a day, 153, cm, ... Start Date: 06/23/21 Status: Ordered omeprazole 20 mg oral delayed release tablet 1 tablet = 20 mg, By Mouth, Daily, # 90 tablet, 0 Refills, Maintenance, 09/29/20 16:38:00 EST, EC Tablet, [facility]/pharmacy #[id number], 153, cm, 08/28/20 15:44:00 EDT, Height, 89.6, kg, 12/26/19 19:50:00 EST, Dry Weight Start Date: 09/29/20 Stop Date: 12/28/20 Status: Ordered ondansetron 4 mg oral tablet 1 tablet = 4 mg, By Mouth, Every 8 hours, PRN as needed for nausea/vomiting, # 15 tablet, 0 Refills, Maintenance, 11/24/20 14:17:00 EST, Tablet, [facility], Partial fill upon patient request if the prescription is for a schedule II opioi... Start Date: 11/24/20 Stop Date: 11/29/20 Status: Ordered oxyCODONE 5 mg oral tablet Refills 0, Tot. Refills 0, Maintenance, 05/07/21 7:59:00 EDT, Partial fill upon patient request if the prescription is for a schedule II opioid drug. Start Date: 05/07/21 Status: Ordered Ozempic 2 mg/1.5 mL (1 mg dose) subcutaneous solution See Instructions, INJECT 1MG INTO THE SKIN WEEKLY, # 9 Unknown, 1 Refills, Maintenance, 06/30/21 18:41:00 EDT, [facility]/pharmacy #[id number], 90, INJECT 1MG INTO THE SKIN WEEKLY, 153, cm, 06/23/21 9:40:00 EDT, Height, 79.6, kg, 12/30/20 13:59:00 EST, Dry Weight Start Date: 06/30/21 Status: Ordered Paragard IUD Maintenance, 05/05/19 10:52:19 EDT, Compound Start Date: 05/05/19 Status: Ordered PEG-3350 with Electrolytes (Eqv-NuLYTELY) oral powder for reconstitution See Instructions, as directed, # 1 each, 0 Refills, Maintenance, 12/26/20 14:56:00 EST, [id number], Ok to substitute for ANY gallon prep, as directed, 153, cm, 12/11/20 16:00:00 EST, Height, 79.6, kg, 11/21/20 21:34:00 EST, Dry Weight Start Date: 12/26/20 Status: Ordered plecanatide 3 mg oral tablet 1 tablet = 3 mg, By Mouth, Daily, # 30 tablet, 0 Refills, Maintenance, 02/14/21 11:40:00 EDT, [facility]/pharmacy #[id number], Partial fill upon patient request if the prescription is for a schedule II opioid drug., 153, cm, 01/29/21 15:33:00 EST, Height, 79.6, kg... Start Date: 02/14/21 Status: Ordered PNEUMATIC PUMP AND SLEEVE PNEUMATIC PUMP AND SLEEVE, See Instructions, # 1 each, Refills 0, Tot. Refills 0, Maintenance, DX: FIBROMYALGI M79.7 HEIGHT- 5' WEIGHT- 175LBS LIFETIME NEED , 02/03/21 14:23:00 EDT, Supply Start Date: 02/03/21 Status: Ordered PULL UPS PULL UPS, See Instructions, # 4 pack/packet, Refills 11, Tot. Refills 11, Maintenance, LARGE PT USES 4 PER DAY DX: FIBROMYALGI M79.7 HEIGHT- 5' [...] M79.7HEIGHT- 5' WEIGHT- 175LBS LIFETIME NEED FAX: [phone], 02/03/21 14:22:00 EDT, Supply Start Date: 02/03/21 Status: Ordered see below see below, See Instructions, # 1 each, Refills 0, Tot. Refills 0, Maintenance, Walker Injured hip.,03/23/19 12:14:05 EDT, Compound Start Date: 03/23/19 Status: Ordered SMALL COMRESSION GLOVES SMALL COMRESSION GLOVES, See Instructions, # 1 pair, Refills 0, Tot. Refills 0, Maintenance, DX: Fibromyalgia Soumya Jaquez, 09/15/19 8:00:52 EDT, Compound Start Date: 09/15/19 Status: Ordered Spiriva Respimat 1.25 mcg/inh inhalation aerosol 2 puffs, Inhalation, Daily, # 4 Gm, 11 Refills, Maintenance, 11/28/20 13:19:00 EST, Aerosol, [facility]/pharmacy #[id number], Partial fill upon patient request if the prescription is for a schedule II opioid drug., 153, cm, 11/28/20 12:47:00 EST, Height, 79.6, kg,... Start Date: 11/28/20 Status: Ordered topiramate 25 mg oral tablet 2 tablet, By Mouth, 2 times a day, # 360 tablet, 1 Refills, Maintenance, 03/03/21 18:31:00 EDT, [id number], 153, cm, 02/28/21 11:14:00 EDT, Height, 79.6, kg, 12/30/20 13:59:00 EST, Dry Weight Start Date: 03/03/21 Status: Ordered topiramate 25 mg oral tablet 2 tablet = 50 mg, By Mouth, 2 times a day, # 360 tablet, 1 Refills, Maintenance, 08/09/20 9:35:00 EDT, Tablet, [id number], 153, cm, 08/05/20 13:58:00 EDT, Height, 89.6, kg, 12/26/19 19:50:00 EST, Dry Weight Start Date: 08/09/20 Status: Ordered Tylenol 325 mg oral tablet 975 mg, 3, tablet, By Mouth, 3 times a day, PRN, not to exceed 4000 mg/day, Refills 0, Maintenance,Headache, 03/27/21 16:13:00 EDT, Partial fill upon patient request if the prescription is for a schedule II opioid drug. 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 date(Confirmed) Active Anemia, iron deficiency ;egd /colo neg iron infusions(Confirmed) Active Irritable bowel syndrome wit h constipation(Confirmed) Active Major depression(Confirmed) Active Migraine(Confirmed) Active Asthma, moderate persistent(Confirmed) Active Nephrolithiasis(Confirmed) Active Polypharmacy(Confirmed) Active PTSD (post-traumatic stress disorder); pyschiatry(Confirmed) Active Fibromyalgia, primary holyk pain mnt/ failed lyrica/lamotrigine/naltrexone/gabapent in(Confirmed) Active Hepatic steatosis fib 4 ,1.31(Confirmed) Active DM (diabetes mellitus), type 2(Confirmed) Active Urinary incontinence(Confirmed) Active Vitamin D deficiency(Confirmed) Active 1CIN 1. cotesting Jun 2018 2colpo, ecc, bx x 2 3referred for colpo Social History Social History Type Response Smoking Status Never (less than 100 in lifetime);Never entered on: 03/24/21 Sex
--- OUTSIDE RECORDS SUMMARY | 2023-08-13 20:24 | XMS_ITS | Continuity of Care Document ---
Author Name Unknown Organization [facility] Address [address] [place] [address]- Care Team Providers Care Wholesale Buyer Name Role Phone Courtney QUACH, Joe Carrion Primary Care Physician [phone] Encounter [facility] Date(s): 06/24/20 - 07/24/20 [facility] Adult [address] [place] [address]- [facility] Allergies, Adverse Reactions, Alerts Substance Reaction Severity Status doxycycline Active penicillin Active Bactrim Active Nuts Anaphylactic reaction to food Active Other Food Allergy 1 HONEY hives Active 1honey Immunizations Not Given Vaccine Date Status Refusal Reason pneumococcal 23-valent vaccine 03/19/19 Not Given Patient Refuses Medications acetaminophen/butalbital/caffeine 300 mg-50 mg-40 mg oral capsule 1 capsule, By Mouth, Every 6 hours, not to exceed 6 capsules/day, # 12 capsule, 0 Refills, Maintenance, 07/08/20 16:24:00 EDT, Capsule, [id number], 1 capsule By Mouth Every 6 hours,Instr:not to exceed 6 capsules/day, 153, cm, 04/23/20 14:32:00... Start Date: 07/08/20 Status: Ordered Aerochamber See Instructions, # 1 kit, Refills 11, Tot. Refills 11, Maintenance, use with mdi, 01/09/20 10:38:00 EST, Compound, 153, cm, 01/09/20 9:49:00 EST, Height, 89.6, kg, 12/26/19 19:50:00 EST, Dry Weight Start Date: 01/09/20 Status: Ordered albuterol 0.083% inhalation solution 3 mL = 2.5 mg, Inhalation, Every 6 hours, # 120 each, 3 Refills, Maintenance, 02/05/20 11:51:00 EDT, Solution, [id number], 153, cm, 02/01/20 9:49:00 EDT, Height, 89.6, kg, 12/26/19 19:50:00 EST, Dry Weight Start Date: 02/05/20 Status: Ordered carBAMazepine 100 mg oral tablet, extended release 200 mg, 2, tablet, By Mouth, 2 times a day, # 360 tablet, Refills 1, Tot. Refills 1, Maintenance, 07/01/20 16:38:00 EDT, Route to Pharmacy Electronically, [facility]/pharmacy #[id number], 153, cm, 04/23/20 14:32:00 EDT, Height, 89.6, kg, 12/26/19 19:50:00 EST, Dry... Start Date: 07/01/20 Stop Date: 12/28/20 Status: Ordered diabetic shoes diabetic shoes, See Instructions, # 1 each, Refills 0, Tot. Refills 0, Maintenance, dx: DM E11.9 Soumya Jaquez, 05/26/19 8:12:35 EDT, Compound Start Date: 05/26/19 Status: Ordered DIABETIC SHOES with inserts DIABETIC SHOES with inserts, See Instructions, # 1 each, Refills 1, Tot. Refills 1, Maintenance, DX: DM E11.9 Soumya Jaquez , 01/03/20 15:52:00 EST, Compound Start Date: 01/03/20 Status: Ordered docusate sodium 100 mg oral tablet 1 tablet = 100 mg, By Mouth, 2 times a day, PRN for constipation, # 60 tablet, 5 Refills, Maintenance, 05/01/20 16:21:00 EDT, Tablet, [facility]/pharmacy #[id number], 153, cm, 04/23/20 14:32:00 EDT, Height, 89.6,kg, 12/26/19 19:50:00 EST, Dry Weight Start Date: 05/01/20 Status: Ordered Dulera 200 mcg-5 mcg/inh inhalation aerosol 2 puffs, Inhalation, 2 times a day, Soumya Jaquez, # 13 Gm, 3 Refills, Maintenance, 09/19/19 13:54:11 EDT, Aerosol, 2 puffs Inhalation 2 times a day,Instr:Soumya Jaquez Start Date: 09/19/19 Status: Ordered duloxetine 60 mg oral enteric coated capsule 1 capsule = 60 mg, By Mouth, 2 times a day, # 60 capsule, 6 Refills, Maintenance, 04/23/20 15:15:00EDT, [facility]/pharmacy #[id number], 153, cm, 04/23/20 14:32:00 EDT, Height, 89.6, kg, 12/26/19 19:50:00 EST, Dry Weight Start Date: 04/23/20 Status: Ordered Emgality Prefilled Pen 120 mg/mL subcutaneous solution = 120 mg, Subcutaneous Infusion, Every 28 days, # 1 each, 11 Refills, Maintenance, 07/03/20 14:17:00 EDT, [facility]/pharmacy #[id number], 1st dose broke NEEDS ANOTHER, 153, [...] Strips See Instructions, # 100 each, Refills 0, Tot. Refills 0, Maintenance, DX DM 2 E11.9 TEST 3 TIMES A DAY, 05/31/19 13:15:13 EDT, Compound Start Date: 05/31/19 Status: Ordered Espinoza lift Espinoza lift, See [...] 07/21/20 23:30:00 EDT, Route to Pharmacy Electronically, [facility]/pharmacy #[id number], 153, cm, 07/09/20 13:32:00 EDT, Height, 89.6, kg,... Start Date: 07/21/20 Status: Ordered ipratropium nasal 42 mcg/inh spray 2 sprays, Nares, Both, 3 times a day, # 15 mL, 11 Refills, Maintenance, 01/09/20 10:37:00 EST, [place], [facility]/pharmacy #[id number], 2 sprays Nares, Both 3 times a day, 153, cm, 01/09/20 9:49:00 EST, Height, 89.6, kg, 12/26/19 19:50:00 EST, Dry Weight Start Date: 01/09/20 Status: Ordered KlonoPIN 0.5 mg oral tablet 1 tablet = 0.5 mg, By Mouth, 2 times a day, # 14 tablet, 0 Refills, Maintenance, 07/18/20 17:06:00 EDT, Tablet, [facility]/pharmacy #[id number], 153, cm, 07/09/20 13:32:00 EDT, Height, 89.6, kg, 12/26/19 19:50:00EST, Dry Weight Start Date: 07/18/20 Stop Date: 07/25/20 Status: Ordered lidocaine 1.8% topical film 1 patch, Topically, Daily, leave on up to 12 hours, # 30 each, 11 Refills, Maintenance, 02/22/20 9:39:00 EDT, Film, [facility]/pharmacy #[id number], 1 patch Topically Daily,Instr:leave on up to 12 hours, 153, cm,02/01/20 9:49:00 EDT, Height, 89.6, kg, 12/26/19 19... Start Date: 02/22/20 Status: Ordered Linzess 290 mcg oral capsule 1 capsule, By Mouth, Daily, # 30 capsule, 0 Refills, Maintenance, 07/22/20 8:52:00 EDT, [id number], 153, cm, 07/09/20 13:32:00 EDT, Height, 89.6, kg, 12/26/19 19:50:00 EST, Dry Weight Start Date: 07/22/20 Status: Ordered metFORMIN 1000 mg oral tablet 1 tablet = 1,000 mg, By Mouth, 2 times a day, new fdose Soumya Jaquez, # 180 tablet, 3 Refills, Maintenance, 09/15/19 8:25:51 EDT, Tablet Start Date: 09/15/19 Status: Ordered omeprazole 20 mg oral delayed release tablet 1 tablet = 20 mg, By Mouth, Daily, # 90 tablet, 0 Refills, Maintenance, 07/01/20 16:38:00 EDT, EC Tablet, [id number], 153, cm, 04/23/20 14:32:00 EDT, Height, 89.6, kg, 12/26/19 19:50:00 EST, Dry Weight Start Date: 07/01/20 Stop Date: 09/29/20 Status: Ordered Ozempic (1 mg dose) 2 mg/1.5 mL subcutaneous solution = 1 mg, Subcutaneous Injection, Every week, # 3 mL, 11 Refills, Maintenance, 06/04/20 17:34:00 EDT,Solution, [id number], 153, cm, 04/23/20 14:32:00 EDT, Height, 89.6, kg, 12/26/19 19:50:00 EST, Dry Weight Start Date: 06/04/20 Status: Ordered Paragard IUD Maintenance, 05/05/19 10:52:19 EDT, Compound Start Date: 05/05/19 Status: Ordered see below see below, See Instructions, # 1 each, Refills 0, Tot. Refills 0, Maintenance, Walker Injured hip.,03/23/19 12:14:05 EDT, Compound Start Date: 03/23/19 Status: Ordered SMALL COMRESSION GLOVES SMALL COMRESSION GLOVES, See Instructions, # 1 pair, Refills 0, Tot. Refills 0, Maintenance, DX: Fibromyalgia Soumya Jaquez, 09/15/19 8:00:52 EDT, Compound Start Date: 09/15/19 Status: Ordered topiramate 25 mg oral tablet 2 tablet = 50 mg, By Mouth, 2 times a day, # 360 tablet, 1 Refills, Maintenance, 06/04/20 7:22:00 EDT, Tablet, [id number], 153, cm, 04/23/20 14:32:00 EDT, Height, 89.6, kg, 12/26/19 19:50:00 EST, Dry Weight Start Date: 06/04/20 Status: Ordered zolpidem 5 mg oral tablet 1 tablet = 5 mg, By Mouth, Daily at bedtime, PRN as needed for insomnia, # 30 tablet, 0 Refills, Maintenance, 07/08/20 16:23:00 EDT, Tablet, [id number], 153, cm, 04/23/20 14:32:00 EDT, Height, 89.6, kg, 12/26/19 19:50:00 EST, Dry Weight Start Date: 07/08/20 Status: Ordered zolpidem 5 mg oral tablet 1 tablet = 5 mg, By Mouth, Daily at bedtime, PRN as needed for insomnia, needs ov for further refills, # 7 tablet, 0 Refills, Maintenance, 06/14/20 11:30:00 EDT, Tablet, [id number], 153, cm, 04/23/20 14:32:00 EDT, Height, 89.6, kg, 12/26/19 19... Start Date: 06/14/20 Stop Date: 06/21/20 Status: Ordered Problem List Condition Effective Dates Status Health Status Inform ant 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) 1, 2, 3 8/14/17 Active Bipolar disease, chronic(Confirmed) Active Cervical radiculopathy(Confirmed) Active Chronic back pain(Confirmed) Active Chronic pain disorder/fibromyalgia(Confirmed) Active Chronic rhinitis(Confirmed) Active Coccyx disorder(Confirmed) Active Constipation(Confirmed) Active Hidradenitis suppurativa(Confirmed) Active Anemia, iron deficiency(Confirmed) Active Major depression(Confirmed) Active Migraine(Confirmed) Active Erosion of gastric band(Confirmed) Active Asthma, moderate persistent(Confirmed) Active Nephrolithiasis(Confirmed) Active Polypharmacy(Confirmed) Active PTSD (post-traumatic stress disorder); pyschiatry(Confirmed) Active Fibromyalgia, primary holyk pain mnt/ failed lyrica/lamotrigine/naltrexone/gabapent in(Confirmed) Active Hepatic steatosis(Confirmed) Active DM (diabetes mellitus), type 2(Confirmed) Active Urinary incontinence(Confirmed) Active Vitamin D deficiency(Confirmed) Active 1CIN 1. cotesting Jun 2018 2colpo, ecc, bx x 2 3referred for colpo Social History Social History Type Response Smoking Status Never smoker; Type: Cigarettes entered on: 06/28/18 Sex
--- OUTSIDE RECORDS SUMMARY | 2023-08-13 20:24 | XMS_ITS | Continuity of Care Document ---
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 Refills 11, Maintenance, use with mdi, 02/18/20 10:38:00 EST, Compound, 153, cm, 01/09/20 9:49:00 EST, Height, 89.6, kg, 12/26/19 19:50:00 EST, Dry Weight Start Date: 01/09/20 Status: Ordered albuterol 0.083% inhalation solution See Instructions, TAKE 1 VIAL VIA NEBULZIER EVERY 6 HOURS, # 300 mL, 0 Refills, Maintenance, 08/31/21 20:13:00 EDT, [facility]/pharmacy #[id number], 153, cm, 08/21/21 11:10:00 EDT, Height, [...] 10/03/21 15:12:00 EST, Route to Pharmacy Electronically, [facility]/pharmacy #[id number], 153, cm, 10/02/21 11:33:00 EST, Height, 80, kg, 09/02/21 13:29:00 EDT, Dry W... Start Date: 10/03/21 Stop Date: 04/01/22 Status: Ordered circulatoin boots circulatoin boots, See Instructions, # 1 each, Refills 0, Tot. Refills 0, Maintenance, 1 pair circulation boots Dx. bilateral lower extremity edema, poor circulation, 05/14/21 7:46:00 EDT, Supply, 153, cm, 05/07/21 7:55:00 EDT, Height, 79.6, kg, ... Start Date: 05/14/21 Status: Ordered clindamycin 300 mg oral capsule TAKE 1 CAPSULE BY MOUTH EVERY 6 HOURS FOR 10 DAYS Start Date: 05/07/21 Status: Ordered clonazePAM 0.5 mg oral tablet 1 tablet = 0.5 mg, By Mouth, 2 times a day, # 60 tablet, 0 Refills, Maintenance, 05/07/21 9:18:00 EDT, Tablet, [facility]/pharmacy #[id number], Partial fill upon patient request if [...] 13:59:00 EST,... Start Date: 05/14/21 Status: Ordered [facility] VITAMIN D3 25 MCG SOFTGEL TAKE 1 [...] LARGE PT USES 6 PER DAY DX: JORDANA M79.7 HEIGHT- 5' WEIGHT- 175LBS LIFETIME NEED dx n39.46 Soumya Jaquez, 10/03/21 17:44:00 EST, Soumya Quinone... Start Date: 10/03/21 Status: Ordered docusate sodium 100 mg oral capsule 1 capsule, By Mouth, 2 times a day, PRN NEEDED FOR CONSTIPATION, # 60 capsule, 5 Refills, Maintenance, 12/10/20 17:49:00 EST, [id number], 153, cm, 12/10/20 15:22:00 EST, Height, 79.6, kg, 11/21/20 21:34:00 EST, Dry Weight Start Date: 12/10/20 Status: Ordered Dulera 200 mcg-5 mcg/inh inhalation aerosol 2 puffs, Inhalation, 2 times a day, # 13 Gm, 3 Refills, Maintenance, 10/03/21 15:21:00 EST, Aerosol, [id number], 2 puffs Inhalation 2 times a day, 153, cm, 10/02/21 11:33:00 EST, Height, 80, kg, 09/02/21 13:29:00 EDT, Dry Weight Start Date: 10/03/21 Status: Ordered duloxetine 60 mg oral enteric coated capsule 1 capsule, By Mouth, 2 times a day, # 180 capsule, 1 Refills, Maintenance, 10/03/21 15:20:00 EST, [id number], 153, cm, 10/02/21 11:33:00 EST, Height, 80, kg, 09/02/21 13:29:00 EDT, Dry Weight Start Date: 10/03/21 Status: Ordered Emgality Prefilled Pen 120 mg/mL subcutaneous solution = 120 mg, Subcutaneous Infusion, Every 28 days, # 1 each, 1 Refills, Maintenance, 10/03/21 15:21:00EST, [id number], 153, cm, 10/02/21 11:33:00 EST, [...] 2 Refills, Maintenance, 10/03/21 15:17:00 EST, Nasal [place], [id number], Partial fill upon patient request [...] 11, Tot. Refills 11, Maintenance, LARGE DX: BAILEEYALGI M79.7 HEIGHT- 5' WEIGHT- 175LBS LIFETIME NEED [...] 09/03/21 13:19:00 EDT, Route to Pharmacy Electronically, [facility]/pharmacy #[id number], 153, cm, 09/02/21 13:58:00 EDT, Height, 80, kg, 1... Start Date: 09/03/21 Status: Ordered ipratropium nasal 42 mcg/inh spray 2 sprays, Nares, Both, 3 times a day, # 15 mL, 11 Refills, Maintenance, 10/03/21 15:19:00 EST, [place], [facility]/pharmacy #[id number], 2 sprays Nares, Both 3 times a day, 153, cm, 10/02/21 11:33:00 EST, Height, 80, kg, 09/02/21 13:29:00 EDT, Dry Weight Start Date: 10/03/21 Status: Ordered ketoconazole 2% topical shampoo 1 application, Topically, Once, # 120 mL, 1 Refills, Soft Stop, 05/07/21 8:34:00 EDT, Shampoo, [facility]/pharmacy #[id number], 1 application Topically Once, 153, cm, 05/07/21 7:55:00 EDT, Height, 79.6, kg, 12/30/20 13:59:00 EST, Dry Weight Start Date: 05/07/21 Status: Ordered KlonoPIN 0.5 mg oral tablet 1 tablet = 0.5 mg, By Mouth, 2 times a day, # 56 tablet, 0 Refills, Maintenance, 09/03/21 9:37:00 EDT, Tablet, [facility]/pharmacy #[id number], 153, cm, 09/02/21 13:58:00 EDT, Height, 80, kg, 09/02/21 13:29:00 EDT, Dry Weight Start Date: 09/03/21 Stop Date: 10/01/21 Status: Ordered lidocaine 1.8% topical film 1 patch, Topically, Daily, leave on up to 12 hours, # 30 each, 11 Refills, Maintenance, 02/22/20 9:39:00 EDT, Film, [facility]/pharmacy #[id number], 1 patch Topically Daily,Instr:leave on up to 12 hours, 153, cm,02/01/20 9:49:00 EDT, Height, 89.6, kg, 12/26/19 19... Start Date: 02/22/20 Status: Ordered Linzess 290 mcg oral capsule 1 capsule = 290 mcg, By Mouth, Daily, TAKE 1 CAPSULE BY MOUTH EVERY DAY, # 90 capsule, 0 Refills, Maintenance, 10/03/21 15:14:00 EST, Capsule, [facility]/pharmacy #[id number], Partial fill upon patient request ifthe [...] EST, Supply Start Date: 10/03/21 Status: Ordered [place] 0.65% nasal spray 2 sprays, Nares, Both, 4 times a day, # 1 each, 0 Refills, Maintenance, 06/23/21 9:54:00 EDT, [facility]/pharmacy #[id number], Partial fill upon patient request if the prescription is for a schedule II opioid drug., 2 sprays Nares, Both 4 times a day, 153, cm, ... Start Date: 06/23/21 Status: Ordered omeprazole 20 mg oral delayed release tablet 1 tablet = 20 mg, By Mouth, Daily, # 90 tablet, 0 Refills, Maintenance, 10/03/21 15:20:00 EST, EC Tablet, [facility]/pharmacy #[id number], 153, cm, 10/02/21 11:33:00 EST, Height, 80, kg, 09/02/21 13:29:00 EDT, Dry Weight Start Date: 10/03/21 Stop Date: 01/01/22 Status: Ordered ondansetron 4 mg oral tablet 1 tablet = 4 mg, By Mouth, Every 8 hours, PRN as needed for nausea/vomiting, # 15 tablet, 0 Refills, Maintenance, 10/03/21 15:20:00 EST, Tablet, [facility]/pharmacy #[id number], Partial fill upon patient request if the prescription is for a schedule II opioid drug... Start Date: 10/03/21 Stop Date: 10/08/21 Status: Ordered oxyCODONE 5 mg oral tablet Refills 0, Tot. Refills 0, Maintenance, 05/07/21 7:59:00 EDT, Partial fill upon patient request if the prescription is for a schedule II opioid drug. Start Date: 05/07/21 Status: Ordered Ozempic 2 mg/1.5 mL (1 mg dose) subcutaneous solution See Instructions, INJECT 1MG INTO THE SKIN WEEKLY, # 9 Unknown, 1 Refills, Maintenance, 10/03/21 15:21:00 EST, [facility]/pharmacy #[id number], 90, INJECT 1MG INTO THE SKIN WEEKLY, 153, cm, 10/02/21 11:33:00 EST,Height, 80, kg, 09/02/21 13:29:00 EDT, Dry Weight Start Date: 10/03/21 Status: Ordered Paragard IUD Maintenance, 05/05/19 10:52:19 EDT, Compound Start Date: 05/05/19 Status: Ordered PEG-3350 with Electrolytes (Eqv-NuLYTELY) oral powder for reconstitution See Instructions, as directed, # 1 each, 0 Refills, Maintenance, 12/26/20 14:56:00 EST, [id number], Ok to substitute for [...] Refills 0, Tot. Refills 0, Maintenance, DX: MIKEYGI M79.7HEIGHT- 5' WEIGHT- 175LBS LIFETIME NEED FAX: [phone], 02/03/21 14:22:00 EDT, Supply Start Date: 02/03/21 [...] 11 Refills, Maintenance, 11/28/20 13:19:00 EST, Aerosol, [facility]/pharmacy #[id number], Partial fill upon patient request if the prescription is for a schedule II opioid drug., 153, cm, 11/28/20 12:47:00 EST, Height, 79.6, kg,... Start Date: 11/28/20 Status: Ordered topiramate 25 mg oral tablet 2 tablet, By Mouth, 2 times a day, # 360 tablet, 1 Refills, [id number], 153, cm, 08/21/21 11:10:00 EDT, Height, 79.6, kg, 12/30/20 13:59:00 EST, Dry Weight Start Date: 08/31/21 Status: Ordered Transfer Wheelchair Transfer Wheelchair, See Instructions, # 1 each, Refills 0, Tot. Refills 0, Maintenance, Dx Fibromyalgia M79.7 Soumyamarcos Murphys, 10/03/21 17:35:00 EST, Supply Start Date: 10/03/21 Status: Ordered Tylenol 325 mg oral tablet [...] a schedule II opioid drug., 153, cm, ... Start Date: 12/19/20 Status: Ordered WIPES WIPES, See Instructions, # 6 each, Refills 11, Tot. Refills 11, Maintenance, DX: FIBROMYALGI M79.7 HEIGHT- 5' WEIGHT- 175LBS LIFETIME NEED , 02/03/21 14:22:00 EDT, Supply Start Date: 02/03/21 Status: Ordered zolpidem 5 mg oral tablet 1 tablet = 5 mg, By Mouth, Daily at bedtime, PRN as needed for insomnia, # 28 tablet, 0 Refills, Maintenance, 10/03/21 18:08:00 EST, Tablet, [id number], 153, cm, 10/02/21 11:33:00 EST, Height, 80, kg, 09/02/21 13:29:00 EDT, Dry Weight Start Date: 10/03/21 Stop Date: 10/31/21 Status: Ordered Problem List Condition Effective Dates [...] Active Asthma, moderate persistent(Confirmed) Active Nephrolithiasis(Confirmed) Active Obese class I(Confirmed) Active Polypharmacy(Confirmed) Active PTSD (post-traumatic stress disorder); pyschiatry(Confirmed) Active Fibromyalgia, primary [place] pain mnt/ failed lyrica/lamotrigine/naltrexone/gabapent in(Confirmed) Active Hepatic steatosis fib 4 ,1.31(Confirmed) Active DM (diabetes mellitus), type 2(Confirmed) Active Urinary incontinence(Confirmed) Active Vitamin D deficiency(Confirmed) Active 1CIN 1. cotesting Jun 2018 2colpo, ecc, bx x 2 3referred for colpo Vital Signs Most recent to oldest [Reference Range]: 1 2 Height 153 cm (10/02/21 11:33 AM) 153 cm (10/02/21 11:15 AM) Weight 79.5 kg (10/02/21 11:15 AM) Pulse Rate [55-90 bpm] 96 bpm *H* (10/02/21 11:15 AM) Body Mass Index [18.5-24.99] 33.96 *>HHI* (10/02/21 11:15 AM) Blood Pressure [90-138/55-84 mm Hg] 121/ 82mm Hg (10/02/21 11:33 AM) 118/93mm Hg (10/02/21 11:15 AM) Blood pressure sites Arm, right (10/02/21 11:15 AM) Weight Obtained Via Standing scale (10/02/21 11:15 AM) Social History Social History Type Response Smoking Status Never (less than 100 in lifetime);Never entered on: 03/24/21 Sex
--- OUTSIDE RECORDS SUMMARY | 2023-08-13 20:24 | XMS_ITS | Continuity of Care Document ---
Author Name Unknown Organization [facility] Address [address] [place] [address]- Care Team Providers Care Production Coordinator Name Role Phone Polly QUACH, Estelle Charles Primary Care Physic gustavo Encounter [facility] Date(s): 10/08/21 - 11/07/21 [facility] [address] [place] [address]- Allergies, Adverse Reactions, Alerts Substance Reaction Severity [...] mL, 0 Refills, Maintenance, 08/31/21 20:13:00 EDT, [facility]/pharmacy #[id number], 153, cm, 08/21/21 11:10:00 EDT, [...] 10/03/21 15:12:00 EST, Route to Pharmacy Electronically, [facility]/pharmacy #[id number], 153, cm, 10/02/21 11:33:00 EST, Height, 80, kg, 09/02/21 13:29:00 EDT, Dry W... Start Date: 10/03/21 Stop Date: 04/01/22 Status: Ordered circulatoin boots circulatoin boots, See Instructions, # 1 each, Refills 0, Tot. Refills 0, Maintenance, 1 pair circulation boots Dx. bilateral lower extremity edema, poor circulation, 05/14/21 7:46:00 EDT, Supply, 153, cm, 05/07/21 7:55:00 EDT, Height, 79.6, kg, 02... Start Date: 05/14/21 Status: Ordered clindamycin 300 mg oral capsule TAKE 1 CAPSULE BY MOUTH EVERY 6 HOURS FOR 10 DAYS Start Date: 05/07/21 Status: Ordered clonazePAM 0.5 mg oral tablet 1 tablet = 0.5 mg, By Mouth, 2 times a day, # 60 tablet, 0 Refills, Maintenance, 05/07/21 9:18:00 EDT, Tablet, [facility]/pharmacy #[id number], Partial fill upon patient request [...] 13:59:00 EST,... Start Date: 05/14/21 Status: Ordered [facility] VITAMIN D3 25 MCG SOFTGEL TAKE 1 [...] LARGE PT USES 6 PER DAY DX: MIKEYGI M79.7 HEIGHT- 5' WEIGHT- 175LBS LIFETIME NEED dx n39.46 Soumya Jaquez, 10/03/21 17:44:00 EST, Soumya Quinone... Start Date: 10/03/21 Status: Ordered docusate sodium 100 mg oral capsule 1 capsule, By Mouth, 2 times a day, PRN NEEDED FOR CONSTIPATION, # 60 capsule, 5 Refills, Maintenance, 12/10/20 17:49:00 EST, [id number], 153, cm, 12/10/20 15:22:00 EST, Height, 79.6, [...] 2 Refills, Maintenance, 10/03/21 15:17:00 EST, Nasal [place], [facility]/pharmacy #[id number], Partial fill upon patient request [...] 09/03/21 13:19:00 EDT, Route to Pharmacy Electronically, [facility]/pharmacy #[id number], 153, cm, 09/02/21 13:58:00 EDT, Height, 80, kg, 1... Start Date: 09/03/21 Status: Ordered ipratropium nasal 42 mcg/inh spray 2 sprays, Nares, Both, 3 times a day, # 15 mL, 11 Refills, Maintenance, 10/03/21 15:19:00 EST, [place], [facility]/pharmacy #[id number], 2 sprays Nares, Both 3 times a day, 153, cm, 10/02/21 11:33:00 EST, Height, 80, kg, 09/02/21 13:29:00 EDT, Dry Weight Start Date: 10/03/21 Status: Ordered ketoconazole 2% topical shampoo 1 application, Topically, Once, # 120 mL, 1 Refills, Soft Stop, 05/07/21 8:34:00 EDT, Shampoo, [facility]/pharmacy #[id number], 1 application Topically Once, 153, cm, 05/07/21 7:55:00 EDT, Height, 79.6, kg, 12/30/20 13:59:00 EST, Dry Weight Start Date: 05/07/21 Status: Ordered KlonoPIN 0.5 mg oral tablet 1 tablet = 0.5 mg, By Mouth, 2 times a day, # 56 tablet, 0 Refills, Maintenance, 09/03/21 9:37:00 EDT, Tablet, [facility]/pharmacy #[id number], 153, cm, 09/02/21 13:58:00 EDT, Height, 80, kg, 09/02/21 13:29:00 EDT, Dry Weight Start Date: 09/03/21 Stop Date: 10/01/21 Status: Ordered lidocaine 1.8% topical film 1 patch, Topically, Daily, leave on up to 12 hours, # 30 each, 11 Refills, Maintenance, 02/22/20 9:39:00 EDT, Film, [facility]/pharmacy #[id number], 1 patch Topically Daily,Instr:leave on up to 12 hours, 153, cm,02/01/20 9:49:00 EDT, Height, 89.6, kg, 12/26/19 19... Start Date: 02/22/20 Status: Ordered Linzess 290 mcg oral capsule 1 capsule = 290 mcg, By Mouth, Daily, TAKE 1 CAPSULE BY MOUTH EVERY DAY, # 90 capsule, 0 Refills, Maintenance, 10/03/21 15:14:00 EST, Capsule, [facility]/pharmacy #[id number], Partial fill upon patient request ifthe prescription is for a schedule II opioid drug.,... Start Date: 10/03/21 Stop Date: 01/01/22 Status: Ordered Nebulizer tubing and mask or mouthpiece Nebulizer tubing and mask or mouthpiece, See Instructions, PRN Wheezing/Shortness of Breath, # 1 each, Refills 11, Tot. Refills 11, Maintenance, Dx Asthma J45.9 Soumyamarcos Murphys, 10/03/21 17:39:00 EST,Supply Start Date: 10/03/21 Status: Ordered Nebulizer/Compressor See Instructions, PRN, # 1 each, Refills 0, Tot. Refills 0, Maintenance, Wheezing/Shortness of Breath, Dx asthma J45.9 Soumya Jaquez, 10/03/21 17:45:00 EST, Supply Start Date: 10/03/21 Status: Ordered [place] 0.65% nasal spray 2 sprays, Nares, Both, 4 times a day, # 1 each, 0 Refills, Maintenance, 06/23/21 9:54:00 EDT, [facility]/pharmacy #[id number], Partial fill upon patient request if the prescription is for a schedule II opioid drug., 2 sprays Nares, Both 4 times a day, 153, cm, 08/... Start Date: 06/23/21 Status: Ordered omeprazole 20 mg oral delayed release tablet 1 tablet = 20 mg, By Mouth, Daily, # 90 tablet, 0 Refills, Maintenance, 10/03/21 15:20:00 EST, EC Tablet, [facility]/pharmacy #[id number], 153, cm, 10/02/21 11:33:00 EST, Height, 80, kg, 09/02/21 13:29:00 EDT, Dry Weight Start Date: 10/03/21 Stop Date: 01/01/22 Status: Ordered ondansetron 4 mg oral tablet 1 tablet = 4 mg, By Mouth, Every 8 hours, PRN as needed for nausea/vomiting, # 15 tablet, 0 Refills, Maintenance, 10/03/21 15:20:00 EST, Tablet, [facility]/pharmacy #[id number], Partial fill upon patient request [...] Unknown, 1 Refills, Maintenance, 10/03/21 15:21:00 EST, [facility]/pharmacy #[id number], 90, INJECT 1MG INTO THE SKIN WEEKLY, 153, cm, 10/02/21 11:33:00 EST,Height, 80, kg, 09/02/21 13:29:00 EDT, Dry Weight Start Date: 10/03/21 Status: Ordered Paragard IUD Maintenance, 05/05/19 10:52:19 EDT, Compound Start Date: 05/05/19 Status: Ordered PEG-3350 with Electrolytes (Eqv-NuLYTELY) oral powder for reconstitution See Instructions, as directed, # 1 each, 0 Refills, Maintenance, 12/26/20 14:56:00 EST, [id number], Ok to substitute for ANY gallon prep, as directed, 153, cm, 12/11/20 16:00:00 EST, Height, 79.6, kg, 11/21/20 21:34:00 EST, Dry Weight Start Date: 12/26/20 Status: Ordered PNEUMATIC PUMP AND SLEEVE PNEUMATIC PUMP AND SLEEVE, See Instructions, # 1 each, Refills 0, Tot. Refills 0, Maintenance, DX: MIKEYGI M79.7 HEIGHT- 5' WEIGHT- 175LBS LIFETIME NEED , 02/03/21 14:23:00 EDT, Supply Start Date: 02/03/21 Status: Ordered PULL UPS PULL UPS, See Instructions, # 4 pack/packet, Refills 11, Tot. Refills 11, Maintenance, LARGE PT USES 4 PER DAY DX: MIKEYGI M79.7 HEIGHT- 5' WEIGHT- 175LBS LIFETIME NEED [...] M79.7HEIGHT- 5' WEIGHT- 175LBS LIFETIME NEED FAX: [phone], 02/03/21 14:22:00 EDT, Supply Start Date: 02/03/21 [...] 11 Refills, Maintenance, 11/28/20 13:19:00 EST, Aerosol, [facility]/pharmacy #[id number], Partial fill upon patient request if the prescription is for a schedule II opioid drug., 153, cm, 11/28/20 12:47:00 EST, Height, 79.6, kg,... Start Date: 11/28/20 Status: Ordered topiramate 25 mg oral tablet 2 tablet, By Mouth, 2 times a day, # 360 tablet, 1 Refills, [id number], 153, cm, 08/21/21 11:10:00 EDT, Height, 79.6, kg, 12/30/20 13:59:00 EST, Dry Weight Start Date: 08/31/21 Status: Ordered Transfer Wheelchair Transfer Wheelchair, See Instructions, # 1 each, Refills 0, Tot. Refills 0, Maintenance, Dx Fibromyalgia M79.7 Soumya Jaquez, 10/03/21 17:35:00 EST, Supply Start Date: 10/03/21 [...] 3 Refills, Maintenance, 12/19/20 11:58:00 EST, Capsule, [facility]/pharmacy #[id number], Partial fill upon patient request [...]
--- OUTSIDE RECORDS SUMMARY | 2023-08-13 20:24 | XMS_ITS | Continuity of Care Document ---
Author Name Unknown Organization [facility] Address [address] [place] [address]- Care Team Providers Care Cleaner Laboratory Equipment Name Role Phone Anupama COREAS, eLn Thomas Primary Care Physician [phone] Encounter [facility] [place] Date(s): 05/07/21 - 05/14/21 [facility] [address] [place] [address]- Attending Physician: Len Altmna NP Allergies, Adverse Reactions, Alerts Substance Reaction Severity [...] 01/29/21 15:01:00 EST, Route to Pharmacy Electronically, [facility]/pharmacy #[id number], 153, cm, 01/01/21 8:33:00 EST, Height, [...] kg, 020... Start Date: 05/14/21 Status: Ordered clindamycin 300 [...] Maintenance, DX: DM E11.9 Soumya Jaquez , 02/03/21 14:20:00 EDT, Compound Start Date: 02/03/21 Status: Ordered Diapers See Instructions, # 120 each, Refills 11, Tot. Refills 11, Maintenance, LARGE PT USES 4 PER DAY DX:BAILEEYALGI M79.7 HEIGHT- 5' WEIGHT- 175LBS LIFETIME NEED , 02/03/21 14:21:00 EDT,Supply Start Date: 02/03/21 Status: Ordered docusate sodium 100 mg oral capsule 1 capsule, By Mouth, 2 times a day, PRN NEEDED FOR CONSTIPATION, # 60 capsule, 5 Refills, Maintenance, 12/10/20 17:49:00 EST, [id number], 153, cm, 12/10/20 15:22:00 EST, Height, 79.6, [...] 2 times a day, # 60 capsule, 5 Refills, Maintenance, 08/24/20 9:47:00 EDT, [id number], 153, cm, 08/14/20 14:22:00 EDT, Height, 89.6, kg, 12/26/19 19:50:00 EST, Dry Weight Start Date: 08/24/20 Status: Ordered Emgality Prefilled Pen 120 mg/mL [...] 07/21/20 23:30:00 EDT, Route to Pharmacy Electronically, [facility]/pharmacy #[id number], 153, cm, 07/09/20 13:32:00 EDT, Height, 89.6, kg,... Start Date: 07/21/20 Status: Ordered ipratropium nasal 42 mcg/inh spray 2 sprays, Nares, Both, 3 times a day, # 15 mL, 11 Refills, Maintenance, 01/09/20 10:37:00 EST, [place], [facility]/pharmacy #[id number], 2 sprays Nares, [...] day, # 60 tablet, 0 Refills, Maintenance, 02/18/21 9:54:00 EDT, Tablet, [facility]/pharmacy #[id number], 153, cm, 01/29/21 15:33:00 EST, Height, 79.6, kg, 12/30/20 13:59:00 EST, Dry Weight Start Date: 02/18/21 Status: Ordered lidocaine 1.8% topical film 1 [...] EVERY DAY Start Date: 05/07/21 Status: Ordered omeprazole 20 mg oral delayed release tablet 1 tablet = 20 mg, By Mouth, Daily, # 90 tablet, 0 Refills, Maintenance, 09/29/20 16:38:00 EST, EC Tablet, [facility]/pharmacy #[id number], 153, cm, 08/28/20 15:44:00 EDT, Height, 89.6, kg, 12/26/19 19:50:00 EST, Dry Weight Start Date: 09/29/20 Stop Date: 12/28/20 Status: Ordered ondansetron 4 mg oral tablet 1 tablet = 4 mg, By Mouth, Every 8 hours, PRN as needed for nausea/vomiting, # 15 tablet, 0 Refills, Maintenance, 11/24/20 14:17:00 EST, Tablet, [facility], Partial fill upon patient request if the prescription is for a schedule II opioi... Start Date: 11/24/20 Stop Date: 11/29/20 Status: Ordered oxyCODONE 5 mg oral tablet Refills 0, Tot. Refills 0, Maintenance, 05/07/21 7:59:00 EDT, Partial fill upon patient request if the prescription is for a schedule II opioid drug. Start Date: 05/07/21 Status: Ordered Ozempic (1 mg dose) 2 mg/1.5 mL subcutaneous solution = 1 mg, Subcutaneous Injection, Every week, # 3 mL, 11 Refills, Maintenance, 06/04/20 17:34:00 EDT,Solution, [facility]/pharmacy #[id number], 153, cm, 04/23/20 14:32:00 EDT, Height, 89.6, kg, 12/26/19 19:50:00 EST, Dry Weight Start Date: 06/04/20 Status: Ordered Paragard IUD Maintenance, 05/05/19 10:52:19 EDT, Compound Start Date: 05/05/19 Status: Ordered PEG-3350 with Electrolytes (Eqv-NuLYTELY) oral powder for reconstitution See Instructions, as directed, # 1 each, 0 Refills, Maintenance, 12/26/20 14:56:00 EST, [id number], Ok to substitute for ANY gallon prep, as directed, 153, cm, 12/11/20 16:00:00 EST, Height, 79.6, kg, 11/21/20 21:34:00 EST, Dry Weight Start Date: 12/26/20 Status: Ordered plecanatide 3 mg oral tablet 1 tablet = 3 mg, By Mouth, Daily, # 30 tablet, 0 Refills, Maintenance, 02/14/21 11:40:00 EDT, [facility]/pharmacy #[id number], Partial fill upon patient request if the prescription is for a schedule II opioid drug., 153, cm, 01/29/21 15:33:00 EST, Height, 79.6, kg... Start Date: 02/14/21 Status: Ordered PNEUMATIC PUMP AND SLEEVE PNEUMATIC PUMP AND SLEEVE, See Instructions, # 1 each, Refills 0, Tot. Refills 0, Maintenance, DX: BALIEEDONTRELLGI M79.7 HEIGHT- 5' WEIGHT- 175LBS LIFETIME NEED , 02/03/21 14:23:00 EDT, Supply Start Date: 02/03/21 Status: Ordered PULL UPS PULL UPS, See Instructions, # 120 each, Refills 11, Tot. Refills 11, Maintenance, LARGE PT USES 4 PER DAY DX: FIBROMYALGI M79.7 HEIGHT- 5' WEIGHT- 175LBS LIFETIME NEED , 02/03/21 14:21:00 EDT, Supply Start Date: 02/03/21 Status: Ordered READY BATH WIPES READY BATH WIPES, See Instructions, # 90 each, Refills 11, Tot. Refills 11, Maintenance, DX: FIBROMYALGI M79.7 HEIGHT- 5' WEIGHT- 175LBS LIFETIME NEED , 02/03/21 14:22:00 EDT, Supply Start Date: 02/03/21 Status: Ordered RECLINER RECLINER, See Instructions, # 1 each, Refills 0, Tot. Refills 0, Maintenance, DX: JORDANA M79.7HEIGHT- 5' WEIGHT- 175LBS LIFETIME NEED FAX: [phone], 02/03/21 14:22:00 EDT, Supply Start Date: 02/03/21 [...] 1 Refills, Maintenance, 03/03/21 18:31:00 EDT, [facility], 153, cm, 02/28/21 11:14:00 EDT, Height, 79.6, [...] Dry Weight Start Date: 02/18/21 Status: Ordered zolpidem 5 mg oral tablet 1 tablet = 5 mg, By Mouth, Daily at bedtime, PRN as needed for insomnia, for 30 days, # 30 tablet, 1 Refills, Acute 07/06/21 9:17:00 EDT, 05/07/21 9:17:00 EDT, Tablet, [id number], Partial fill upon patient request if the prescription is for a... Start Date: 05/07/21 Stop Date: 07/06/21 Status: Ordered Problem List Condition Effective Dates [...] Most recent to oldest [Reference Range]: 1 Height 153 cm (05/07/21 7:55 AM) Weight 78.18 kg (05/07/21 7:55 AM) Oxygen Saturation [94-100 %] 99 % (05/07/21 7:55 AM) Pulse Rate [55-90 bpm] 85 bpm (05/07/21 7:55 AM) Body Mass Index [18.5-24.99] 33.4 *>HHI* (05/07/21 7:55 AM) Blood Pressure [90-138/55-84 mm Hg] 117/ 85mm Hg (05/07/21 7:55 AM) Blood pressure sites Arm, left (05/07/21 7:55 AM) Weight Obtained Via Standing scale (05/07/21 7:55 AM) Social History Social History Type Response Smoking Status Never (less than 100 in lifetime);Never entered on: 03/24/21 Sex
--- OUTSIDE RECORDS SUMMARY | 2023-08-13 20:24 | XMS_ITS | Continuity of Care Document ---
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 Name Role Phone Joe Valdez MD Primary Care Physician [phone] [id number] Date[facility] 08/14[facility] - 08/21/20 [facility] [place] [facility] [address] [place] [address]- [facility] Encounter Diagnosis Chronic back pain(Discharge Diagnosis) - 08/14/20 Cervical radiculopathy(Discharge Diagnosis) - 08/14/20 Attending Physician: Joe Valdez MD Allergies, Adverse Reactions, Alerts Substance Reaction Severity [...] 3 Refills, Maintenance, 02/05/20 11:51:00 EDT, Solution, [facility]/pharmacy #[id number], 153, cm, 02/01/20 9:49:00 EDT, Height, [...] Refills 0, Maintenance, dx: DM E11.9 Soumya Jqauez, 05/26/19 8:12:35 EDT, Compound Start Date: 05/26/19 [...] mL, 11 Refills, Maintenance, 01/09/20 10:37:00 EST, [place], [id number], 2 sprays Nares, Both 3 times a day, 153, cm, 01/09/20 9:49:00 EST, Height, 89.6, kg, 12/26/19 19:50:00 EST, Dry Weight Start Date: 01/09/20 Status: Ordered KlonoPIN 0.5 mg oral tablet 1 tablet = 0.5 mg, By Mouth, 2 times a day, # 14 tablet, 0 Refills, Maintenance, 08/09/20 10:10:00 EDT, Tablet, [facility]/pharmacy #[id number], 153, cm, 08/05/20 13:58:00 EDT, Height, 89.6, kg, 12/26/19 19:50:00EST, Dry Weight Start Date: 08/09/20 Stop Date: 08/16/20 Status: Ordered lidocaine 1.8% topical film 1 [...] EDT, Compound Start Date: 05/05/19 Status: Ordered predniSONE 20 mg oral tablet 1 tablet = 20 mg, By Mouth, Daily, with food or milk, # 10 tablet, 0 Refills, Maintenance, 08/05/2017:11:00 EDT, [id number], 153, cm, 08/05/20 13:58:00 EDT, Height, 89.6, kg, 12/26/19 19:50:00 EST, Dry Weight Start Date: 08/05/20 Status: Ordered see below see below, See [...] Dry Weight Start Date: 08/09/20 Status: Ordered Zithromax Z-Freeman 250 mg oral tablet See Instructions, 2 on day 1 then one daily, # 6 tablet, 0 Refills, Maintenance, 08/05/20 17:11:00 EDT, [id number], 153, cm, 08/05/20 13:58:00 EDT, Height, 89.6, kg, 12/26/19 19:50:00 EST, Dry Weight Start Date: 08/05/20 Status: Ordered zolpidem 5 mg oral tablet 1 tablet = 5 mg, By Mouth, Daily at bedtime, PRN as needed for insomnia, # 30 tablet, 0 Refills, Maintenance, 07/08/20 16:23:00 EDT, Tablet, [facility]/pharmacy #[id number], 153, cm, 04/23/20 14:32:00 EDT, Height, 89.6, kg, 12/26/19 19:50:00 EST, Dry Weight Start Date: 07/08/20 Status: Ordered zolpidem 5 mg oral tablet 1 tablet = 5 mg, By Mouth, Daily at bedtime, PRN as needed for insomnia, needs ov for further refills, # 7 tablet, 0 Refills, Maintenance, 06/14/20 11:30:00 EDT, Tablet, [facility]/pharmacy #[id number], [...] ecc, bx x 2 3referred for colpo Diagnosis Diagnosis Type Effective Dates Health Status Clinical Service Informant Chronic back pain Discharge Diagnosis 08/14/20 Cervical radiculopathy Discharge Diagnosis 08/14/20 Vital Signs Most recent to oldest [Reference Range]: 1 Height 153 cm (08/14/20 2:22 PM) Social History Social History Type Response Smoking Status Never smoker; Type: Cigarettes entered on: 06/28/18 Sex
--- OUTSIDE RECORDS SUMMARY | 2023-08-13 20:24 | XMS_ITS | Continuity of Care Document ---
Author Name Unknown Organization [facility] Address [address] [place] [address]- Care Team Providers Care Director Marketing Name Role Phone Courtney QUACH, Joe Carrion Primary Care Physician [facility]counter [facility] Date(s): 06/14/20 - 07/14/20 [facility] Adult [address] [place] [address]- [facility] Allergies, Adverse Reactions, Alerts Substance Reaction Severity [...] 07/01/20 16:38:00 EDT, Route to Pharmacy Electronically, [facility]/pharmacy #[id number], 153, cm, 04/23/20 14:32:00 EDT, Height, [...] 5 Refills, Maintenance, 05/01/20 16:21:00 EDT, Tablet, [facility]/pharmacy #[id number], 153, cm, 04/23/20 14:32:00 EDT, Height, [...] 60 capsule, 6 Refills, Maintenance, 04/23/20 15:15:00EDT, [facility]/pharmacy #[id number], 153, cm, 04/23/20 14:32:00 EDT, Height, 89.6, kg, 12/26/19 19:50:00 EST, Dry Weight Start Date: 04/23/20 Status: Ordered Emgality Prefilled Pen 120 mg/mL subcutaneous solution = 120 mg, Subcutaneous Infusion, Every 28 days, # 1 each, 11 Refills, Maintenance, 07/03/20 14:17:00 EDT, [facility]/pharmacy #[id number], 1st dose broke NEEDS ANOTHER, 153, [...] food Soumya Quiniones, # 60 tablet, Refills 0, Tot.Refills 0, Maintenance, 06/25/20 17:13:00 EDT, Route to Pharmacy Electronically, [facility]/pharmacy #[id number], 153, cm, 04/23/20 14:32:00 EDT, Height, 89.6, kg,... Start Date: 06/25/20 Status: Ordered ipratropium nasal 42 mcg/inh spray 2 sprays, Nares, Both, 3 times a day, # 15 mL, 11 Refills, Maintenance, 01/09/20 10:37:00 EST, [place], [facility]/pharmacy #[id number], 2 sprays Nares, Both 3 times a day, 153, cm, 01/09/20 9:49:00 EST, Height, 89.6, kg, 12/26/19 19:50:00 EST, Dry Weight Start Date: 01/09/20 Status: Ordered KlonoPIN 0.5 mg oral tablet 1 tablet = 0.5 mg, By Mouth, 2 times a day, # 14 tablet, 0 Refills, Maintenance, 04/17/20 12:00:00 EDT, Tablet, [facility]/pharmacy #[id number], 153, cm, 02/01/20 9:49:00 EDT, Height, 89.6, kg, 12/26/19 19:50:00 EST, Dry Weight Start Date: 04/17/20 Stop Date: 04/24/20 Status: Ordered lidocaine 1.8% topical film 1 patch, Topically, Daily, leave on up to 12 hours, # 30 each, 11 Refills, Maintenance, 02/22/20 9:39:00 EDT, Film, [facility]/pharmacy #[id number], 1 patch Topically Daily,Instr:leave on up to 12 hours, 153, cm,02/01/20 9:49:00 EDT, Height, 89.6, kg, 12/26/19 19... Start Date: 02/22/20 Status: Ordered Linzess 290 mcg oral capsule 1 capsule, By Mouth, Daily, # 30 capsule, 0 Refills, Maintenance, 06/25/20 17:13:00 EDT, [id number], 153, cm, 04/23/20 14:32:00 EDT, Height, 89.6, kg, 12/26/19 19:50:00 EST, Dry Weight Start Date: 06/25/20 Status: Ordered metFORMIN 1000 mg oral tablet [...]
--- OUTSIDE RECORDS SUMMARY | 2023-08-13 20:24 | XMS_ITS | Continuity of Care Document ---
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 Start Date: 03/05/21 Status: Ordered Aerochamber See Instructions, # 1 kit, Refills 11, Tot. Refills 11, Maintenance, use with mdi, 01/09/20 10:38:00 EST, Compound, 153, cm, 01/09/20 9:49:00 EST, Height, 89.6, kg, 12/26/19 19:50:00 EST, Dry Weight Start Date: 01/09/20 Status: Ordered albuterol 0.083% inhalation solution 3 mL = 2.5 mg, Inhalation, Every 6 hours, # 120 each, 3 Refills, Maintenance, 02/05/20 11:51:00 EDT, Solution, [facility]/pharmacy #[id number], 153, cm, 02/01/20 9:49:00 [...] EDT, Supply Start Date: 02/03/21 Status: Ordered carBAMazepine 100 mg oral tablet, extended release 200 mg, 2, tablet, By Mouth, 2 times a day, # 360 tablet, Refills 1, Tot. Refills 1, Maintenance, 01/29/21 15:01:00 EST, Route to Pharmacy Electronically, [facility]/pharmacy #[id number], 153, cm, 01/01/21 8:33:00 EST, Height, 79.6, kg, 12/30/20 13:59:00 EST, Dry... Start Date: 01/29/21 Stop Date: 07/28/21 Status: Ordered DIABETIC SHOES with inserts DIABETIC SHOES with inserts, See Instructions, # 1 each, Refills 1, Tot. Refills 1, Maintenance, DX: DM E11.9 Soumya Jaquez , 02/03/21 14:20:00 EDT, Compound Start Date: 02/03/21 Status: Ordered Diapers See Instructions, # 120 each, Refills 11, Tot. Refills 11, Maintenance, LARGE PT USES 4 PER DAY DX:FIBROMYALGI M79.7 HEIGHT- 5' WEIGHT- 175LBS LIFETIME NEED , 02/03/21 14:21:00 EDT,Supply Start Date: 02/03/21 Status: Ordered docusate sodium 100 mg oral capsule 1 capsule, By Mouth, 2 times a day, PRN NEEDED FOR CONSTIPATION, # 60 capsule, 5 Refills, Maintenance, 12/10/20 17:49:00 EST, [facility], 153, cm, 12/10/20 15:22:00 EST, Height, 79.6, [...] capsule, 5 Refills, Maintenance, 08/24/20 9:47:00 EDT, [facility]/pharmacy #[id number], 153, cm, 08/14/20 14:22:00 EDT, Height, [...] 10:45:08 EDT Start Date: 05/05/19 Status: Ordered fluconazole 150 mg oral tablet 1 tablet = 150 mg, By Mouth, Once, # 1 tablet, 0 Refills, Soft Stop, 12/13/20 11:33:00 EST, Tablet,[facility]/pharmacy #0635, Partial fill upon patient request if the prescription is for a schedule II opioid drug., 153, cm, 12/11/20 16:00:00 EST, Height, 79... Start Date: 12/13/20 Status: Ordered Freestyle Flash Glucose Meter See [...] Refills 0, Tot. Refills 0, Maintenance, DX: TAMIR M79.7 WEIGHT 197LBS HEIGHT 5' LIFETIME NEEDS, 07/01/20 8:09:00 EDT, Supply Start Date: 07/01/20 Status: Ordered ibuprofen 600 mg oral tablet 600 mg, 1, tablet, By Mouth, 2 times a day, with food Soumya Quiniones, # 60 tablet, Refills 1, Tot.Refills 1, Maintenance, 07/21/20 23:30:00 EDT, Route to Pharmacy Electronically, [facility]/pharmacy #[id number], 153, cm, 07/09/20 13:32:00 EDT, Height, 89.6, kg,... Start Date: 07/21/20 Status: Ordered ipratropium nasal 42 mcg/inh spray 2 sprays, Nares, Both, 3 times a day, # 15 mL, 11 Refills, Maintenance, 01/09/20 10:37:00 EST, [place], [facility]/pharmacy #0693, 2 sprays Nares, Both 3 times a day, 153, cm, 01/09/20 9:49:00 EST, Height, 89.6, kg, 12/26/19 19:50:00 EST, Dry Weight Start Date: 01/09/20 Status: Ordered KlonoPIN 0.5 mg oral tablet 1 tablet = 0.5 mg, By Mouth, 2 times a day, # 60 tablet, 0 Refills, Maintenance, 02/18/21 9:54:00 EDT, Tablet, [facility]/pharmacy #[id number], 153, cm, 01/29/21 15:33:00 EST, Height, 79.6, kg, 12/30/20 13:59:00 EST, Dry Weight Start Date: 02/18/21 Status: Ordered lidocaine 1.8% topical film 1 patch, Topically, Daily, leave on up to 12 hours, # 30 each, 11 Refills, Maintenance, 02/22/20 9:39:00 EDT, Film, [facility]/pharmacy #[id number], 1 patch Topically Daily,Instr:leave on up to 12 hours, 153, cm,02/01/20 9:49:00 EDT, Height, 89.6, kg, 12/26/19 19... Start Date: 02/22/20 Status: Ordered Medrol Dosepak 4 mg oral tablet 1 pack/packet, By Mouth, Daily, for 6 days, as directed on package labeling, # 21 tablet, 0 Refills, Acute 03/17/21 10:27:00 EDT, 03/11/21 10:27:00 EDT, Tablet, [facility]/pharmacy #[id number], Partial fill upon patient request if the prescription is for a schedul... Start Date: 03/11/21 Stop Date: 03/17/21 Status: Ordered metFORMIN 1000 mg oral tablet 1 tablet = 1,000 mg, By Mouth, 2 times a day, new fdose Soumya Jaquez, # 180 tablet, 1 Refills, Maintenance, 10/06/20 13:46:00 EST, Tablet, [facility]/pharmacy #[id number], 153, cm, 08/28/20 15:44:00 EDT, Height, 89.6, kg, 12/26/19 19:50:00 EST, Dry Weight Start Date: 10/06/20 Status: Ordered omeprazole 20 mg oral delayed release tablet 1 tablet = 20 mg, By Mouth, Daily, # 90 tablet, 0 Refills, Maintenance, 09/29/20 16:38:00 EST, EC Tablet, [facility]/pharmacy #[id number], 153, cm, 08/28/20 15:44:00 EDT, Height, 89.6, kg, 12/26/19 19:50:00 EST, Dry Weight Start Date: 09/29/20 Stop Date: 12/28/20 Status: Ordered ondansetron 4 mg oral tablet 1 tablet = 4 mg, By Mouth, Every 8 hours, PRN as needed for nausea/vomiting, # 15 tablet, 0 Refills, Maintenance, 11/24/20 14:17:00 EST, Tablet, [facility], Partial fill upon patient request if the prescription is for a schedule II opioi... Start Date: 11/24/20 Stop Date: 11/29/20 Status: Ordered Ozempic (1 mg dose) 2 mg/1.5 mL subcutaneous solution = 1 mg, Subcutaneous Injection, Every week, # 3 mL, 11 Refills, Maintenance, 06/04/20 17:34:00 EDT,Solution, [facility]/pharmacy #[id number], 153, cm, 04/23/20 14:32:00 EDT, Height, 89.6, kg, 12/26/19 19:50:00 EST, Dry Weight Start Date: 06/04/20 Status: Ordered Paragard IUD Maintenance, 05/05/19 10:52:19 EDT, Compound Start Date: 05/05/19 Status: Ordered PEG-3350 with Electrolytes (Eqv-NuLYTELY) oral powder for reconstitution See Instructions, as directed, # 1 each, 0 Refills, Maintenance, 12/26/20 14:56:00 EST, [facility], Ok to substitute for ANY gallon prep, as directed, 153, cm, 12/11/20 16:00:00 EST, Height, 79.6, kg, 11/21/20 21:34:00 EST, Dry Weight Start Date: 12/26/20 Status: Ordered plecanatide 3 mg oral tablet 1 tablet = 3 mg, By Mouth, Daily, # 30 tablet, 0 Refills, Maintenance, 02/14/21 11:40:00 EDT, [facility]/pharmacy #[id number], Partial fill upon patient request [...] M79.7HEIGHT- 5' WEIGHT- 175LBS LIFETIME NEED FAX: [phone], 02/03/21 14:22:00 EDT, Supply Start Date: 02/03/21 [...] 11 Refills, Maintenance, 11/28/20 13:19:00 EST, Aerosol, [facility]/pharmacy #[id number], Partial fill upon patient request if the prescription is for a schedule II opioid drug., 153, cm, 11/28/20 12:47:00 EST, Height, 79.6, kg,... Start Date: 11/28/20 Status: Ordered topiramate 25 mg oral tablet 2 tablet, By Mouth, 2 times a day, # 360 tablet, 1 Refills, Maintenance, 03/03/21 18:31:00 EDT, [facility], 153, cm, 02/28/21 11:14:00 EDT, Height, 79.6, [...] Dry Weight Start Date: 08/09/20 Status: Ordered Vitamin D3 1000 intl units [...]
--- OUTSIDE RECORDS SUMMARY | 2023-08-13 20:24 | XMS_ITS | Continuity of Care Document ---
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 Refills 11, Maintenance, DX: FIBROMDONTRELLGI M79.7 HEIGHT- 5' WEIGHT- 175LBS LIFETIME NEED [...] Refills, Maintenance, 12/10/20 17:49:00 EST, [facility], 153, cm, 12/10/20 15:22:00 EST, Height, 79.6, [...] capsule, 5 Refills, Maintenance, 08/24/20 9:47:00 EDT, [facility]/pharmacy #[id number], 153, cm, 08/14/20 14:22:00 EDT, Height, 89.6, kg, 12/26/19 19:50:00 EST, Dry Weight Start Date: 08/24/20 Status: Ordered Emgality Prefilled Pen 120 mg/mL subcutaneous solution = 120 mg, Subcutaneous Infusion, Every 28 days, # 1 each, 11 Refills, Maintenance, 07/03/20 14:17:00 EDT, [facility]/pharmacy #[id number], 1st dose broke NEEDS ANOTHER, 153, [...] mL, 11 Refills, Maintenance, 01/09/20 10:37:00 EST, [place], [facility]/pharmacy #[id number], 2 sprays Nares, [...] 12/26/19 19... Start Date: 02/22/20 Status: Ordered metFORMIN 1000 mg oral tablet 1 tablet = 1,000 mg, By Mouth, 2 times a day, new fdose Soumyamarcos Jaquez, # 180 tablet, 1 Refills, Maintenance, 10/06/20 13:46:00 EST, Tablet, [facility]/pharmacy #[id number], 153, cm, [...] 0 Refills, Maintenance, 11/24/20 14:17:00 EST, Tablet, [facility], Partial fill upon patient request [...] each, 0 Refills, Maintenance, 12/26/20 14:56:00 EST, [facility], Ok to substitute for ANY gallon prep, as directed, 153, cm, 12/11/20 16:00:00 EST, Height, 79.6, kg, 11/21/20 21:34:00 EST, Dry Weight Start Date: 12/26/20 Status: Ordered plecanatide 3 mg oral tablet 1 tablet = 3 mg, By Mouth, Daily, # 30 tablet, 0 Refills, Maintenance, 02/14/21 11:40:00 EDT, [id number], Partial fill upon patient [...] Refills 11, Tot. Refills 11, Maintenance, DX: FIBROMDONTRELLGI M79.7 HEIGHT- 5' WEIGHT- 175LBS LIFETIME NEED , 02/03/21 14:22:00 EDT, Supply Start Date: 02/03/21 Status: Ordered RECLINER RECLINER, See Instructions, # 1 each, Refills 0, Tot. Refills 0, Maintenance, DX: MIKEYGI M79.7HEIGHT- 5' WEIGHT- 175LBS LIFETIME NEED FAX: [phone], 02/03/21 14:22:00 EDT, Supply Start Date: 02/03/21 [...] 1 Refills, Maintenance, 03/03/21 18:31:00 EDT, [id number], 153, cm, 02/28/21 11:14:00 EDT, Height, 79.6, kg, 12/30/20 13:59:00 EST, Dry Weight Start Date: 03/03/21 Status: Ordered topiramate 25 mg oral tablet 2 tablet = 50 mg, By Mouth, 2 times a day, # 360 tablet, 1 Refills, Maintenance, 08/09/20 9:35:00 EDT, Tablet, [facility]/pharmacy #[id number], 153, cm, 08/05/20 13:58:00 EDT, Height, [...] 3 Refills, Maintenance, 12/19/20 11:58:00 EST, Capsule, [facility]/pharmacy #[id number], Partial [...]
--- OUTSIDE RECORDS SUMMARY | 2023-08-13 20:24 | XMS_ITS | Continuity of Care Document ---
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 Role Phone Courtney QUACH, Joe Carrion Primary Care Physician [phone] [place]counter [facility] 03/24/21 - 03/27/[address] [address] Encounter Diagnosis DM (diabetes mellitus), type 2(Discharge Diagnosis) - 03/25/21 Discharge Disposition: A-D/C Home Attending Physician: Cecilia Carreon MD Admitting Physician: Aleksandar Dalton MD Referring Physician: Not on Staff, Referring MD Allergies, Adverse Reactions, Alerts Substance Reaction [...] 01/29/21 15:01:00 EST, Route to Pharmacy Electronically, [facility]/pharmacy #[id number], 153, cm, 01/01/21 8:33:00 EST, Height, [...] Refills, Maintenance, 12/10/20 17:49:00 EST, [id number], 153, cm, 12/10/20 15:22:00 EST, Height, 79.6, [...] capsule, 5 Refills, Maintenance, 08/24/20 9:47:00 EDT, [facility]/pharmacy #[id number], 153, cm, 08/14/20 14:22:00 EDT, Height, 89.6, kg, 12/26/19 19:50:00 EST, Dry Weight Start Date: 08/24/20 Status: Ordered Emgality Prefilled Pen 120 mg/mL subcutaneous solution = 120 mg, Subcutaneous Infusion, Every 28 days, # 1 each, 11 Refills, Maintenance, 07/03/20 14:17:00 EDT, [facility]/pharmacy #[id number], 1st dose broke [...] 07/21/20 23:30:00 EDT, Route to Pharmacy Electronically, [facility]/pharmacy #[id number], 153, cm, 07/09/20 13:32:00 EDT, Height, 89.6, kg,... Start Date: 07/21/20 Status: Ordered ipratropium nasal 42 mcg/inh spray 2 sprays, Nares, Both, 3 times a day, # 15 mL, 11 Refills, Maintenance, 01/09/20 10:37:00 EST, [place], [facility]/pharmacy #[id number], 2 sprays Nares, Both 3 times a day, 153, cm, 01/09/20 9:49:00 EST, Height, 89.6, kg, 12/26/19 19:50:00 EST, Dry Weight Start Date: 01/09/20 Status: Ordered KlonoPIN 0.5 mg oral tablet 1 tablet = 0.5 mg, By Mouth, 2 times a day, # 60 tablet, 0 Refills, Maintenance, 02/18/21 9:54:00 EDT, Tablet, [facility]/pharmacy #[id number], 153, cm, 01/29/21 15:33:00 EST, Height, 79.6, kg, 12/30/20 13:59:00 EST, Dry Weight Start Date: 02/18/21 Status: Ordered lidocaine 1.8% topical film 1 patch, Topically, Daily, leave on up to 12 hours, # 30 each, 11 Refills, Maintenance, 02/22/20 9:39:00 EDT, Film, [facility]/pharmacy #[id number], 1 patch Topically Daily,Instr:leave on up to 12 hours, 153, cm,02/01/20 9:49:00 EDT, Height, 89.6, kg, 12/26/19 19... Start Date: 02/22/20 Status: Ordered metFORMIN 1000 mg oral tablet 1 tablet = 1,000 mg, By Mouth, 2 times a day, new fdose Soumya Jaquez, # 180 tablet, 1 Refills, Maintenance, 10/06/20 13:46:00 EST, Tablet, [facility]/pharmacy #[id number], 153, cm, 08/28/20 15:44:00 EDT, Height, 89.6, kg, 12/26/19 19:50:00 EST, Dry Weight Start Date: 10/06/20 Status: Ordered MiraLax oral powder for reconstitution = 17 Gm, By Mouth, Daily, for 14 days, dissolve in water before taking, # 238 Gm, 0 Refills, Acute 04/10/21 16:14:00 EDT, 03/27/21 16:14:00 EDT, REC Powder, [facility]/pharmacy #[id number], Partial fill upon patient request if the prescription is for a schedule II... Start Date: 03/27/21 Stop Date: 04/10/21 Status: Ordered MorPHINE Inj 2 mg, Injection, IV Push Slowly, Every 3 hours, PRN for Pain , Severe, Routine, 03/24/21 11:57:00 EDT Start Date: 03/24/21 Stop Date: 03/28/21 Status: Discontinued omeprazole 20 mg oral delayed release tablet 1 tablet = 20 mg, By Mouth, Daily, # 90 tablet, 0 Refills, Maintenance, 09/29/20 16:38:00 EST, EC Tablet, [facility]/pharmacy #[id number], 153, cm, 08/28/20 15:44:00 EDT, Height, 89.6, kg, 12/26/19 19:50:00 EST, Dry Weight Start Date: 09/29/20 Stop Date: 12/28/20 Status: Ordered ondansetron 4 mg oral tablet 1 tablet = 4 mg, By Mouth, Every 8 hours, PRN as needed for nausea/vomiting, # 15 tablet, 0 Refills, Maintenance, 11/24/20 14:17:00 EST, Tablet, [facility], Partial fill upon patient request if [...] each, 0 Refills, Maintenance, 12/26/20 14:56:00 EST, [id number], Ok to substitute for ANY gallon prep, as directed, 153, cm, 12/11/20 16:00:00 EST, Height, 79.6, kg, 11/21/20 21:34:00 EST, Dry Weight Start Date: 12/26/20 Status: Ordered plecanatide 3 mg oral tablet 1 tablet = 3 mg, By Mouth, Daily, # 30 tablet, 0 Refills, Maintenance, 02/14/21 11:40:00 EDT, [facility]/pharmacy #[id number], Partial fill upon [...] EDT, Supply Start Date: 02/03/21 Status: Ordered predniSONE 20 mg oral tablet 1 tablet = 20 mg, By Mouth, Daily, for 4 days, # 4 tablet, 0 Refills, Acute 03/31/21 16:14:00 EDT, 03/27/21 16:14:00 EDT, Tablet, [facility]/pharmacy #[id number], Partial fill upon patient request if the prescription is for a schedule II opioid drug., 153, cm, 04/... Start Date: 03/27/21 Stop Date: 03/31/21 Status: Ordered PULL UPS PULL UPS, See [...] M79.7HEIGHT- 5' WEIGHT- 175LBS LIFETIME NEED FAX: [phone], 02/03/21 14:22:00 EDT, Supply Start Date: 02/03/21 Status: Ordered see below see below, See Instructions, # 1 each, Refills 0, Tot. Refills 0, Maintenance, Walker Injured hip.,03/23/19 12:14:05 EDT, Compound Start Date: 03/23/19 Status: Ordered Senna 8.6 mg oral tablet 8.6 mg, 1, tablet, By Mouth, Daily, for 14 days, # 14 tablet, Refills 0, Tot. Refills 0, Acute, 04/10/21 16:14:00 EDT, 03/27/21 16:14:00 EDT, Route to Pharmacy Electronically, [facility]/pharmacy #[id number] Tablet, Partial fill upon patient request if the prescri... Start Date: 03/27/21 Stop Date: 04/10/21 Status: Ordered SMALL COMRESSION GLOVES SMALL COMRESSION GLOVES, See Instructions, # 1 pair, Refills 0, Tot. Refills 0, Maintenance, DX: Fibromyalgia Soumya Jaquez, 09/15/19 8:00:52 EDT, Compound Start Date: 09/15/19 Status: Ordered Spiriva Respimat 1.25 mcg/inh inhalation aerosol 2 puffs, Inhalation, Daily, # 4 Gm, 11 Refills, Maintenance, 11/28/20 13:19:00 EST, Aerosol, [facility]/pharmacy #[id number], Partial fill upon patient request if the prescription is for a schedule II opioid drug., 153, cm, 11/28/20 12:47:00 EST, Height, 79.6, kg,... Start Date: 11/28/20 Status: Ordered topiramate 25 mg oral tablet 2 tablet, By Mouth, 2 times a day, # 360 tablet, 1 Refills, Maintenance, 03/03/21 18:31:00 EDT, [id number], 153, cm, 02/28/21 11:14:00 EDT, Height, 79.6, kg, 12/30/20 13:59:00 EST, Dry Weight Start Date: 03/03/21 Status: Ordered topiramate 25 mg oral tablet 2 tablet = 50 mg, By Mouth, 2 times a day, # 360 tablet, 1 Refills, Maintenance, 08/09/20 9:35:00 EDT, Tablet, [facility]/pharmacy #[id number], 153, cm, 08/05/20 [...] 3 Refills, Maintenance, 12/19/20 11:58:00 EST, Capsule, [facility]/pharmacy #[id number], Partial fill upon [...] Diagnosis Diagnosis Type Effective Dates Health Status Cl inical Service Informant DM (diabetes mellitus), type 2 Discharge Diagnosis 03/25/21 Procedures Procedure Date Related Diagnosis Body Site Status CT angiography of head and neck nad 1 03/26/[address] of abdomen and pelvis 2 03/26/21 Completed Duplex scan of lower limb veins neg dvt 03/26/21 Completed Cystoscopy stent stone retrieval 3 03/25/21 Completed 1No proximal occlusion or high grade stenosis in the major arteries of the head and neck 2Status post an interval cholecystectomy. There is a 3 mm obstructing calculus in the distal right ureter with mild hydronephrosis. The appendix is fluid-filled and measures up to 8 mm. No surrounding fluid or inflammation. There is a focus of gas adjacent to the tip (image 600 series 204), which may be contained within the appendix rather than representing an acute focal perforation of the appendiceal tip. Please correlate clinically. Follow-up is suggested. Results were conveyed in person by Dr. Junior to Dr. Ma on 03/24/2021 at 6:01 AM The report was cortexted to Dr. Ma at 10:00 AM on 03/24/2021. 3PROCEDURE: Cystoscopy, right retrograde pyelogram, interpretation of retrograde pyelogram, ____ fluoroscopy, dilation of right distal ureter, stricture at stone impacted site and right ureteroscopy with manipulation and removal of stone and placement of a 6-Welsh double J right ureteral sten Results Orders for Microbiology Reports Name Date Blood Culture 03/24/21 Blood Culture #2 03/24/21 Microbiology Reports TEST:Blood Culture, Second Order STATUS:Unauthenticated BODY SITE: SOURCE:Blood COLLECTED DATE/TIME:03/24/21 5:49 AM Blood Culture, Second Order SPECIMEN DESCRIPTION : BLOOD R ARM SPECIAL REQUESTS : NONE CULTURE : NO GROWTH 3 DAYS REPORT STATUS : PRELIMINARY REPORT TEST:Blood Culture STATUS:Unauthenticated BODY SITE: SOURCE:Blood COLLECTED DATE/TIME:03/24/21 4:14 AM Blood Culture SPECIMEN DESCRIPTION : BLOOD NO SITE SPECIAL REQUESTS : NONE CULTURE : NO GROWTH 3 DAYS REPORT STATUS : PRELIMINARY REPORT Radiology Reports * Exam Date Time Procedure Performing Provider Status 03/25/21 5:43 PM Urethrocystography Retrograde Nicholas Evangelista; Auth (Verified) Notes: (Urethrocystography Retrograde) Reason For Exam: right ureteroscopy with stent placement RESULT: Urethrocystography Retrograde Urethrocystography Retrograde INDICATION: right ureteroscopy with stent placement COMPARISONS: None TECHNIQUE: Fluoroscopy support was provided. There was no radiologist in attendance. Fluoroscopy time: 38.7 seconds Technologist time: 30 minutes Exposure: 12.7 mGy FINDINGS: 5 images were submitted. A right ureteral stent was placed. Please refer to operative note for fulldetails. IMPRESSION: See above. WSN: [id number] Ordering Physician: Henok Wellington Dictated By: Theodore Deras MD Dictated Date/Time: 03/26/21 11:56 a Reviewed By: Theodore Deras MD Signed By: Theodore Deras MD Signed Date/Time: 03/26/21 11:56 am Transcribed By: SAROJ Transcribed Date/Time: 03/26/21 11:55 am * Exam Date Time Procedure Performing Provider Status 03/25/21 5:43 PM C-Arm > 1 Hour Heike Evangelista; Auth (V erified) Notes: (C-Arm > 1 Hour) Reason For Exam: right ureteroscopy with stent placement RESULT: C-Arm > 1 Hour C-Arm > 1 Hour INDICATION: Reason: right ureteroscopy with stent placement; Special Instructions: ft 38 sec tt 30min COMPARISONS: None TECHNIQUE: Fluoroscopy support was provided. There was no radiologist in attendance. Fluoroscopy time: 38 seconds Technologist time: 30 minutes FINDINGS: Fluoroscopy support was provided. There was no radiologist in attendance. IMPRESSION: See above. WSN: [id number] Ordering Physician: Henok Wellington Dictated By: Cruz Beltran MD Dictated Date/Time: 03/26/21 3:47 pm Reviewed By: Cruz Beltran MD Signed By: Cruz Beltran MD Signed Date/Time: 03/26/21 3:47 pm Transcribed By: SAROJ Transcribed Date/Time: 03/25/21 6:17 pm Vital Signs Most recent to oldest [Reference Range]: 1 2 3 Oxygen Saturation [94-100 %] 98 % (03/27/21 3:00 PM) 100 % (03/27/21 7:00 AM) 99 % (03/26/21 11:15 PM) Pulse Rate [55-90 bpm] 89 bpm (03/27/21 3:00 PM) 79 bpm (03/27/21 7:00 AM) 79 bpm (03/26/21 11:15 PM) Blood Pressure [90-138/55-84 mm Hg] 118/66mm Hg (03/27/21 3:00 PM) 129/85mm Hg (03/27/21 7:00 AM) 134/67mm Hg (03/26/21 11:15 PM) Respiratory Rate [16-30 br/min] 16 br/min (03/27/21 5:31 PM) 18 br/min (03/27/21 3:00 PM) 18 br/min (03/27/21 1:50 PM) Temperature [96.8-100.4 DegF] 98.0 DegF (03/27/21 3:00 PM) 97.8 DegF (03/27/21 7:00 AM) 97.5 DegF (03/26/21 11:15 PM) Liters per Minute 6 L/min (03/25/21 5:26 PM) Mode of Delivery (Oxygen) Room air (03/27/21 3:00 PM) Room air (03/27/21 7:00 AM) Room air (03/26/21 11:15 PM) Blood pressure sites Arm, left (03/27/21 3:00 PM) Arm, left (03/27/21 7:00 AM) Arm, left (03/26/21 11:15 PM) Temperature Route Oral (03/27/21 3:00 PM) Oral (03/27/21 7:00 AM) Oral (03/26/21 11:15 PM) Social History Social History Type Response Smoking Status Never (less than 100 in lifetime);Never entered on: 03/24/21 Sex
--- OUTSIDE RECORDS SUMMARY | 2023-08-13 20:24 | XMS_ITS | Continuity of Care Document ---
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 Name Role Phone Joe Valdez MD Primary Care Physician Encounter [facility] [place] Date(s): 03/05/21 - 03/12/21 [facility] [address] [place] [address]- Encounter Diagnosis Hidradenitis suppurativa(Discharge Diagnosis) - 03/05/21 Asthma, moderate persistent(Discharge Diagnosis) - 03/05/21 Chronic pain disorder/fibromyalgia(Discharge Diagnosis) - 03/05/21 Fibromyalgia, primary holyk pain mnt/ failed lyrica/lamotrigine/naltrexone/gabapentin(Discharge Diagnosis) - 03/05/21 Major depression(Discharge Diagnosis) - 03/05/21 Migraine(Discharge Diagnosis) - 03/05/21 Vitamin D deficiency(Discharge Diagnosis) - 03/05/21 Chronic rhinitis(Discharge Diagnosis) - 03/05/21 Anemia, iron deficiency ;egd/colo neg iron infusions(Discharge Diagnosis) - 03/05/21 Irritable bowel syndrome with constipation(Discharge Diagnosis) - 03/05/21 Attending Physician: Joe Valdez MD Allergies, Adverse Reactions, Alerts Substance Reaction Severity Status doxycycline Active penicillin 1 Active gabapentin Active Nuts Anaphylactic reaction to food Active Other Food Allergy 2 HONEY hives Active Lyrica Active Bactrim Active 1per RN, pt reports reaction was [...] 0 Refills, Maintenance, 03/05/21 11:35:00 EDT, Capsule, [facility]/pharmacy #[id number], 1 capsule By Mouth Every 6 [...] 3 Refills, Maintenance, 02/05/20 11:51:00 EDT, Solution, [facility]/pharmacy #[id number], 153, cm, 02/01/20 9:49:00 EDT, Height, [...] 01/29/21 15:01:00 EST, Route to Pharmacy Electronically, [facility]/pharmacy #[id number], 153, cm, 01/01/21 8:33:00 EST, Height, 79.6, kg, 12/30/20 13:59:00 EST, Dry... Start Date: 01/29/21 Stop Date: 07/28/21 Status: Ordered clindamycin 300 mg oral capsule 1 capsule = 300 mg, By Mouth, Every 6 hours, for 10 days, # 40 capsule, 0 Refills, Acute 03/15/21 11:44:00 EDT, 03/05/21 11:44:00 EDT, Capsule, [facility]/pharmacy #[id number], Partial fill upon patient request if the prescription is for a schedule II opioid drug.... Start Date: 03/05/21 Stop Date: 03/15/21 Status: Ordered DIABETIC SHOES with inserts DIABETIC [...] capsule, 5 Refills, Maintenance, 12/10/20 17:49:00 EST, [id number], 153, cm, 12/10/20 15:22:00 EST, Height, 79.6, [...] capsule, 5 Refills, Maintenance, 08/24/20 9:47:00 EDT, [facility]/pharmacy #[id number], 153, cm, 08/14/20 14:22:00 EDT, Height, 89.6, kg, 12/26/19 19:50:00 EST, Dry Weight Start Date: 08/24/20 Status: Ordered Emgality Prefilled Pen 120 mg/mL subcutaneous solution = 120 mg, Subcutaneous Infusion, Every 28 days, # 1 each, 11 Refills, Maintenance, 07/03/20 14:17:00 EDT, [facility]/pharmacy #[id number], 1st dose broke NEEDS ANOTHER, 153, [...] 0 Refills, Soft Stop, 12/13/20 11:33:00 EST, Tablet,[id number], Partial fill upon patient request if [...] 07/21/20 23:30:00 EDT, Route to Pharmacy Electronically, [facility]/pharmacy #[id number], 153, cm, 07/09/20 13:32:00 EDT, Height, 89.6, kg,... Start Date: 07/21/20 Status: Ordered ipratropium nasal 42 mcg/inh spray 2 sprays, Nares, Both, 3 times a day, # 15 mL, 11 Refills, Maintenance, 01/09/20 10:37:00 EST, [place], [facility]/pharmacy #[id number], 2 sprays Nares, Both 3 times a day, 153, cm, 01/09/20 9:49:00 EST, Height, 89.6, kg, 12/26/19 19:50:00 EST, Dry Weight Start Date: 01/09/20 Status: Ordered KlonoPIN 0.5 mg oral tablet 1 tablet = 0.5 mg, By Mouth, 2 times a day, # 60 tablet, 0 Refills, Maintenance, 02/18/21 9:54:00 EDT, Tablet, [facility]/pharmacy #[id number], 153, cm, 01/29/21 15:33:00 EST, Height, 79.6, kg, 12/30/20 13:59:00 EST, Dry Weight Start Date: 02/18/21 Status: Ordered lidocaine 1.8% topical film 1 patch, Topically, Daily, leave on up to 12 hours, # 30 each, 11 Refills, Maintenance, 02/22/20 9:39:00 EDT, Film, [facility]/pharmacy #[id number], 1 patch Topically Daily,Instr:leave on up to 12 hours, 153, cm,02/01/20 9:49:00 EDT, Height, 89.6, kg, 12/26/19 19... Start Date: 02/22/20 Status: Ordered Medrol Dosepak 4 mg oral tablet 1 pack/packet, By Mouth, Daily, for 6 days, as directed on package labeling, # 21 tablet, 0 Refills, Acute 03/17/21 10:27:00 EDT, 03/11/21 10:27:00 EDT, Tablet, [facility]/pharmacy #[id number], Partial fill upon patient request if the prescription is for a schedul... Start Date: 03/11/21 Stop Date: 03/17/21 Status: Ordered metFORMIN 1000 mg oral tablet 1 tablet = 1,000 mg, By Mouth, 2 times a day, new fdose Soumya Jaquez, # 180 tablet, 1 Refills, Maintenance, 10/06/20 13:46:00 EST, Tablet, [facility]/pharmacy #[id number], 153, cm, 08/28/20 15:44:00 EDT, Height, 89.6, kg, 12/26/19 19:50:00 EST, Dry Weight Start Date: 10/06/20 Status: Ordered omeprazole 20 mg oral delayed release tablet 1 tablet = 20 mg, By Mouth, Daily, # 90 tablet, 0 Refills, Maintenance, 09/29/20 16:38:00 EST, EC Tablet, [facility]/pharmacy #[id number], 153, cm, 08/28/20 15:44:00 EDT, Height, 89.6, kg, 12/26/19 19:50:00 EST, Dry Weight Start Date: 09/29/20 Stop Date: 12/28/20 Status: Ordered ondansetron 4 mg oral tablet 1 tablet = 4 mg, By Mouth, Every 8 hours, PRN as needed for nausea/vomiting, # 15 tablet, 0 Refills, Maintenance, 11/24/20 14:17:00 EST, Tablet, [facility], Partial fill upon patient request if the prescription is for a schedule II opioi... Start Date: 11/24/20 Stop Date: 11/29/20 Status: Ordered Ozempic (1 mg dose) 2 mg/1.5 mL subcutaneous solution = 1 mg, Subcutaneous Injection, Every week, # 3 mL, 11 Refills, Maintenance, 06/04/20 17:34:00 EDT,Solution, [facility]/pharmacy #[id number], 153, cm, 04/23/20 14:32:00 EDT, Height, 89.6, kg, 12/26/19 19:50:00 EST, Dry Weight Start Date: 06/04/20 Status: Ordered Paragard IUD Maintenance, 05/05/19 10:52:19 EDT, Compound Start Date: 05/05/19 Status: Ordered PEG-3350 with Electrolytes (Eqv-NuLYTELY) oral powder for reconstitution See Instructions, as directed, # 1 each, 0 Refills, Maintenance, 12/26/20 14:56:00 EST, [facility], Ok to substitute for ANY gallon prep, as directed, 153, cm, 12/11/20 16:00:00 EST, Height, 79.6, kg, 12/31/20 21:34:00 EST, Dry Weight Start Date: 12/26/20 Status: Ordered plecanatide 3 mg oral tablet 1 tablet = 3 mg, By Mouth, Daily, # 30 tablet, 0 Refills, Maintenance, 02/14/21 11:40:00 EDT, [facility]/pharmacy #[id number], Partial fill upon patient request if the [...] M79.7HEIGHT- 5' WEIGHT- 175LBS LIFETIME NEED FAX: [phone], 02/03/21 14:22:00 EDT, Supply Start Date: 02/03/21 [...] 1 Refills, Maintenance, 03/03/21 18:31:00 EDT, [facility], 153, cm, 02/28/21 11:14:00 EDT, Height, 79.6, [...] Effective Dates Health Status Clinical Service Informant Hidradenitis suppurativa Discharge Diagnosis 03/05/21 Asthma, moderate persistent Discharge Diagnosis 03/05/21 Chronic pain disorder/fibromyalg ia Discharge Diagnosis 03/05/21 Fibromyalgia, primary holyk pain mnt/ failed lyrica/lamotrigine/ naltrexone/gabapent in Discharge Diagnosis 03/05/21 Major depression Discharge Diagnosis 03/05/21 Migraine Discharge Diagnosis 03/05/21 Vitamin D deficiency Discharge Diagnosis 03/05/21 Chronic rhinitis Discharge Diagnosis 03/05/21 Anemia, iron deficiency ;egd/colo neg iron infusions Discharge Diagnosis 03/05/21 Irritable bowel syndrome with constipation Discharge Diagnosis 03/05/21 Vital Signs Most recent to oldest [Reference Range]: 1 Height 153 cm (03/05/21 10:50 AM) Social History Social History Type Response Smoking Status Never smoker; Type: Cigarettes entered on: 06/28/18 Sex
--- OUTSIDE RECORDS SUMMARY | 2023-08-13 20:24 | XMS_ITS | Continuity of Care Document ---
Author Name Unknown Organization [facility] Address [address] [place] [address]- Care Team Providers Care Assembler Tester Name Role Phone Polly QUACH, Estelle Charles Primary Care Physic gustavo [place] [facility] [place] [facility] [address] [place] [address]- [place] Attending Physician: Estelle Matias MD Allergies, Adverse Reactions, Alerts Substance Reaction [...] mL, 0 Refills, Maintenance, 08/31/21 20:13:00 EDT, [facility]/pharmacy #[id number], 153, cm, 08/21/21 11:10:00 EDT, Height, [...] 01/29/21 15:01:00 EST, Route to Pharmacy Electronically, [facility]/pharmacy #[id number], 153, cm, 01/01/21 [...] 0 Refills, Maintenance, 05/07/21 9:18:00 EDT, Tablet, [facility]/pharmacy #[id number], Partial fill upon [...] 13:59:00 EST,... Start Date: 05/14/21 Status: Ordered [facility] VITAMIN D3 25 MCG SOFTGEL TAKE [...] Refills, Maintenance, 12/10/20 17:49:00 EST, [facility], 153, cm, 12/10/20 15:22:00 EST, Height, 79.6, kg, 11/21/20 21:34:00 EST, Dry Weight Start Date: 12/10/20 Status: Ordered Dulera 200 mcg-5 mcg/inh inhalation aerosol 2 puffs, Inhalation, 2 times a day, Soumyamarcos Jaquez, # 13 Gm, 3 Refills, Maintenance, 09/19/19 13:54:11 EDT, Aerosol, 2 puffs Inhalation 2 times a day,Instr:Soumya Jaquez Start Date: 09/19/19 Status: Ordered duloxetine 60 mg oral enteric coated capsule 1 capsule, By Mouth, 2 times a day, # 180 capsule, 1 Refills, Maintenance, 06/07/21 14:13:00 EDT, [facility], 153, cm, 05/14/21 12:43:00 EDT, Height, 79.6, kg, 12/30/20 13:59:00 EST, Dry Weight Start Date: 06/07/21 Status: Ordered Emgality Prefilled Pen 120 mg/mL subcutaneous solution = 120 mg, Subcutaneous Infusion, Every 28 days, # 1 each, 1 Refills, Maintenance, 09/03/21 13:18:00EDT, [id number], 1st dose broke NEEDS ANOTHER, 153, cm, 09/02/21 13:58:00 EDT, Height, 80, kg, 09/02/21 13:29:00 EDT, Dry Weight Start Date: 09/03/21 Status: Ordered EpiPen 2-Freeman 0.3 mg injectable [...] 09/03/21 13:19:00 EDT, Route to Pharmacy Electronically, [facility]/pharmacy #[id number], 153, cm, 09/02/21 13:58:00 EDT, Height, 80, kg, 1... Start Date: 09/03/21 Status: Ordered ipratropium nasal 42 mcg/inh spray 2 sprays, Nares, Both, 3 times a day, # 15 mL, 11 Refills, Maintenance, 01/09/20 10:37:00 EST, [place], [facility]/pharmacy #[id number], 2 sprays Nares, Both 3 times a day, 153, cm, 01/09/20 9:49:00 EST, Height, 89.6, kg, 12/26/19 19:50:00 EST, Dry Weight Start Date: 01/09/20 Status: Ordered ketoconazole 2% topical shampoo 1 application, Topically, Once, # 120 mL, 1 Refills, Soft Stop, 05/07/21 8:34:00 EDT, Shampoo, [facility]/pharmacy #[id number], 1 application Topically Once, 153, cm, 05/07/21 7:55:00 EDT, Height, 79.6, kg, 12/30/20 13:59:00 EST, Dry Weight Start Date: 05/07/21 Status: Ordered KlonoPIN 0.5 mg oral tablet 1 tablet = 0.5 mg, By Mouth, 2 times a day, # 56 tablet, 0 Refills, Maintenance, 09/03/21 9:37:00 EDT, Tablet, [facility]/pharmacy #[id number], 153, cm, 09/02/21 13:58:00 EDT, Height, 80, kg, 09/02/21 13:29:00 EDT, Dry Weight Start Date: 09/03/21 Stop Date: 10/01/21 Status: Ordered lidocaine 1.8% topical film 1 patch, Topically, Daily, leave on up to 12 hours, # 30 each, 11 Refills, Maintenance, 02/22/20 9:39:00 EDT, Film, [facility]/pharmacy #[id number], 1 patch Topically Daily,Instr:leave on up to 12 hours, 153, cm,02/01/20 9:49:00 EDT, Height, 89.6, kg, 12/26/19 19... Start Date: 02/22/20 Status: Ordered Linzess 290 mcg oral capsule TAKE 1 CAPSULE BY MOUTH EVERY DAY Start Date: 05/07/21 Status: Ordered [place] 0.65% nasal spray 2 sprays, Nares, Both, 4 times a day, # 1 each, 0 Refills, Maintenance, 06/23/21 9:54:00 EDT, [facility]/pharmacy #[id number], Partial fill upon patient request if the prescription is for a schedule II opioid drug., 2 sprays Nares, Both 4 times a day, 153, cm, ... Start Date: 06/23/21 Status: Ordered omeprazole 20 mg oral delayed release tablet 1 tablet = 20 mg, By Mouth, Daily, # 90 tablet, 0 Refills, Maintenance, 09/29/20 16:38:00 EST, EC Tablet, [facility]/pharmacy #[id number], 153, cm, 08/28/20 15:44:00 EDT, Height, 89.6, kg, 12/26/19 19:50:00 EST, Dry Weight Start Date: 09/29/20 Stop Date: 12/28/20 Status: Ordered ondansetron 4 mg oral tablet 1 tablet = 4 mg, By Mouth, Every 8 hours, PRN as needed for nausea/vomiting, # 15 tablet, 0 Refills, Maintenance, 11/24/20 14:17:00 EST, Tablet, [facility], Partial fill upon patient request if [...] Unknown, 1 Refills, Maintenance, 06/30/21 18:41:00 EDT, [facility]/pharmacy #[id number], 90, INJECT 1MG INTO THE SKIN WEEKLY, 153, cm, 06/23/21 9:40:00 EDT, Height, 79.6, kg, 12/30/20 13:59:00 EST, Dry Weight Start Date: 06/30/21 Status: Ordered Paragard IUD Maintenance, 05/05/19 10:52:19 EDT, Compound Start Date: 05/05/19 Status: Ordered PEG-3350 with Electrolytes (Eqv-NuLYTELY) oral powder for reconstitution See Instructions, as directed, # 1 each, 0 Refills, Maintenance, 12/26/20 14:56:00 EST, [facility], Ok to substitute for ANY gallon prep, as directed, 153, cm, 12/11/20 16:00:00 EST, Height, 79.6, kg, 11/21/20 21:34:00 EST, Dry Weight Start Date: 12/26/20 Status: Ordered plecanatide 3 mg oral tablet 1 tablet = 3 mg, By Mouth, Daily, # 30 tablet, 0 Refills, Maintenance, 02/14/21 11:40:00 EDT, [facility]/pharmacy #[id number], Partial fill upon patient request if the prescription is for a schedule II opioid drug., 153, cm, 01/29/21 15:33:00 EST, Height, 79.6, kg... Start Date: 02/14/21 Status: Ordered PNEUMATIC PUMP AND SLEEVE PNEUMATIC PUMP AND SLEEVE, See Instructions, # 1 each, Refills 0, Tot. Refills 0, Maintenance, DX: FIBROMDONTRELLGI M79.7 HEIGHT- 5' WEIGHT- [...] M79.7HEIGHT- 5' WEIGHT- 175LBS LIFETIME NEED FAX: [phone], 02/03/21 14:22:00 EDT, Supply Start Date: 02/03/21 [...] 11 Refills, Maintenance, 11/28/20 13:19:00 EST, Aerosol, [facility]/pharmacy #[id number], Partial fill upon patient request if the prescription is for a schedule II opioid drug., 153, cm, 11/28/20 12:47:00 EST, Height, 79.6, kg,... Start Date: 11/28/20 Status: Ordered tamsulosin 0.4 mg oral capsule 0.4 mg, 1, capsule, By Mouth, Daily, # 7 capsule, Refills 0, Tot. Refills 0, Maintenance, 08/21/21 12:51:00 EDT, Route to Pharmacy Electronically, [facility]/pharmacy #[id number], Partial fill upon patient request if the prescription is for a schedule II opioid drKaleb. Start Date: 08/21/21 Stop Date: 08/28/21 Status: Ordered topiramate 25 mg oral tablet 2 tablet, By Mouth, 2 times a day, # 360 tablet, 1 Refills, [facility]ORE [facility], 153, cm, 08/21/21 11:10:00 EDT, Height, 79.6, kg, 12/30/20 13:59:00 EST, Dry Weight Start Date: 08/31/21 Status: Ordered Tylenol 325 mg oral tablet [...] 3 Refills, Maintenance, 12/19/20 11:58:00 EST, Capsule, [facility]/pharmacy #[id number], Partial fill upon [...] insomnia, # 28 tablet, 0 Refills, Maintenance, 09/03/21 9:37:00 EDT, Tablet, [facility]/pharmacy #[id number], 153, cm, 09/02/21 13:58:00 EDT, Height,80, kg, 09/02/21 13:29:00 EDT, Dry Weight Start Date: 09/03/21 Stop Date: 10/01/21 Status: Ordered Problem List Condition Effective Dates [...]
--- OUTSIDE RECORDS SUMMARY | 2023-08-13 20:24 | XMS_ITS | Continuity of Care Document ---
Author Name Unknown Organization [facility] Address [address] [place] [address]- Care Team Providers Care Neon Molder Name Role Phone Andrew COREAS, Loreta Diaz Primary Care Physician [place] [facility] [place] 06/14/23 - 07/14/23 [facility] [address] [place] [address]- Attending Physician: Admtr, Ar8 Admitting Physician: Admtr, Ar8 Referring Physician: Admtr, Ar8 Allergies, Adverse Reactions, Alerts Substance Reaction Severity [...] Reason SARS-CoV-2 (COVID-19) Ad26 vaccine 03/01/21 Given Medications acetaminophen/butalbital/caffeine 300 mg-50 mg-40 mg oral [...] mL, 0 Refills, Maintenance, 08/31/21 20:13:00 EDT, [facility]/pharmacy #[id number], 153, cm, 08/21/21 11:10:00 EDT, [...] 10/03/21 15:12:00 EST, Route to Pharmacy Electronically, [facility]/pharmacy #[id number], 153, cm, 10/02/21 11:33:00 EST, [...] kg, 02... Start Date: 05/14/21 Status: Ordered clonazePAM 0.5 [...] 13:59:00 EST,... Start Date: 05/14/21 Status: Ordered [facility] VITAMIN D3 25 MCG SOFTGEL TAKE [...] Refills, Maintenance, 12/10/20 17:49:00 EST, [facility], 153, cm, 12/10/20 15:22:00 EST, Height, 79.6, [...] 2 Refills, Maintenance, 10/03/21 15:17:00 EST, Nasal [place], [facility]/pharmacy #[id number], Partial fill upon patient request [...] 09/03/21 13:19:00 EDT, Route to Pharmacy Electronically, [facility]/pharmacy #[id number], 153, cm, 09/02/21 13:58:00 EDT, Height, 80, kg, 1... Start Date: 09/03/21 Status: Ordered ipratropium nasal 42 mcg/inh spray 2 sprays, Nares, Both, 3 times a day, # 15 mL, 11 Refills, Maintenance, 10/03/21 15:19:00 EST, [place], [facility]/pharmacy #[id number], 2 sprays Nares, Both 3 times a day, 153, cm, 10/02/21 11:33:00 EST, Height, 80, kg, 09/02/21 13:29:00 EDT, Dry Weight Start Date: 10/03/21 Status: Ordered ketoconazole 2% topical shampoo 1 application, Topically, Once, # 120 mL, 1 Refills, Soft Stop, 05/07/21 8:34:00 EDT, Shampoo, [facility]/pharmacy #[id number], 1 application Topically Once, 153, cm, 05/07/21 7:55:00 EDT, Height, 79.6, kg, 12/30/20 13:59:00 EST, Dry Weight Start Date: 05/07/21 Status: Ordered lidocaine 1.8% topical film 1 patch, Topically, Daily, leave on up to 12 hours, # 30 each, 11 Refills, Maintenance, 02/22/20 9:39:00 EDT, Film, [facility]/pharmacy #[id number], 1 patch Topically Daily,Instr:leave on up to 12 hours, 153, cm,02/01/20 9:49:00 EDT, Height, 89.6, kg, 12/26/19 19... Start Date: 02/22/20 Status: Ordered Linzess 290 mcg oral capsule 1 capsule = 290 mcg, By Mouth, Daily, TAKE 1 CAPSULE BY MOUTH EVERY DAY, # 90 capsule, 0 Refills, Maintenance, 10/03/21 15:14:00 EST, Capsule, [facility]/pharmacy #[id number], Partial fill upon patient request ifthe prescription is for a schedule II opioid drug.,... Start Date: 10/03/21 Stop Date: 01/01/22 Status: Ordered metFORMIN 500 mg oral tablet 1 tablet = 500 mg, By Mouth, 2 times a day, # 180 tablet, 3 Refills, Maintenance, 06/14/23 7:54:00 EDT, Tablet, [id number], Partial fill upon patient request if the prescription is for a schedule II opioid drug., 153, cm, 06/14/23 7:36:00 EDT,... Start Date: 06/14/23 Stop Date: 06/08/24 Status: Ordered Nebulizer tubing and mask or [...] EST, Supply Start Date: 10/03/21 Status: Ordered Newberry 0.65% nasal spray 2 [...] Refills, Maintenance, 10/03/21 15:20:00 EST, EC Tablet, [facility]/pharmacy #[id number], 153, cm, 10/02/21 11:33:00 EST, Height, 80, kg, 09/02/21 13:29:00 EDT, Dry Weight Start Date: 10/03/21 Stop Date: 01/01/22 Status: Ordered ondansetron 4 mg oral tablet 1 tablet = 4 mg, By Mouth, Every 8 hours, PRN as needed for nausea/vomiting, # 15 tablet, 0 Refills, Maintenance, 10/03/21 15:20:00 EST, Tablet, [facility]/pharmacy #[id number], Partial fill upon patient request [...] drug. Start Date: 12/25/22 Status: Ordered Ozempic (1 mg dose) 4 mg/3 mL subcutaneous solution = 1 mg, Subcutaneous Infusion, Every 7 days, # 3 mL, 3 Refills, Maintenance, 06/14/23 7:54:00 EDT, [facility]/pharmacy #[id number], Partial fill upon patient request if the prescription is for a schedule II opioid drug., 153, cm, 06/14/23 7:36:00 EDT, Height, 80,... Start Date: 06/14/23 Stop Date: 10/04/23 Status: Ordered Paragard IUD Maintenance, 05/05/19 10:52:19 EDT, Compound Start Date: 05/05/19 Status: Ordered Paxlovid 150 mg-100 mg oral tablet See Instructions, 300 mg nirmatrelvir (two 150 mg tablets) with 100 mg ritonavir (1 tablet). All 3 tablets taken together twice daily for 5 days, with or without food, # 30 tablet, 0 Refills, Maintenance, 12/25/22 17:47:00 EST, [facility]/pharmacy #[id number], Pa... Start Date: 12/25/22 Status: Ordered PEG-3350 with Electrolytes (Eqv-NuLYTELY) oral powder for reconstitution See Instructions, as directed, # 1 each, 0 Refills, Maintenance, 12/26/20 14:56:00 EST, [facility], Sc to substitute for ANY gallon prep, as directed, 153, cm, 12/11/20 16:00:00 EST, Height, 79.6, kg, 11/21/20 21:34:00 EST, Dry Weight Start Date: 12/26/20 Status: Ordered PNEUMATIC PUMP AND SLEEVE PNEUMATIC PUMP AND SLEEVE, See Instructions, # 1 each, Refills 0, Tot. Refills 0, Maintenance, DX: BAILEEKATIE M79.7 HEIGHT- 5' WEIGHT- 175LBS LIFETIME NEED [...] Refills 11, Tot. Refills 11, Maintenance, DX: BAILEEKATIE M79.7 HEIGHT- 5' WEIGHT- 175LBS LIFETIME NEED , 02/03/21 14:22:00 EDT, Supply Start Date: 02/03/21 Status: Ordered RECLINER RECLINER, See Instructions, # 1 each, Refills 0, Tot. Refills 0, Maintenance, DX: JORDANA M79.7HEIGHT- 5' WEIGHT- 175LBS LIFETIME NEED FAX: [phone], 02/03/21 14:22:00 EDT, Supply Start Date: 02/03/21 [...] 11 Refills, Maintenance, 11/28/20 13:19:00 EST, Aerosol, [facility]/pharmacy #[id number], Partial fill upon patient request if the prescription is for a schedule II opioid drug., 153, cm, 11/28/20 12:47:00 EST, Height, 79.6, kg,... 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 Hidradenitis suppurativa Confirmed Active [...] Team Personnel Name: Kathy Mendoza RN Position: [facility] Nurse Member Role: Primary Care Nurse Name: Nevin Smith NP Position: [facility] Associate Professional Member Role: Primary Care Nurse Address: Address: [address] [place] [address] [place] [address]- Name: Bradly Bucio RN Position: [facility] RN Member Role: Primary Care Nurse Name: Elana Silver RN Position: [facility] Office Staff Member Role: Primary Care Nurse Name: Adriana Lamar RN Position: [facility] RN Member Role: Primary Care Nurse Name: Lory Gillis RN Position: [facility] RN Member Role: Primary Care Nurse Name: Levy Buenrostro RN Position: [facility] RN Member Role: Primary Care Nurse Name: Isabela Quiroz RN Position: [facility] Outreach Member Role: Primary Care Nurse Name: Keyanna Michaels RN Position: [facility] RN Member Role: Primary Care Nurse Name: Loreta Morales NP Position: [facility] Associate Professional Member Role: PCP Address: Address: [address] [place] [address] [address] [place] [address]- Care Team Related Persons Name: JESSICA LAUREN Address: home [address] [place] [address] Name: LAUREN ALDANA Address: home [address] [place] [address]
--- OUTSIDE RECORDS SUMMARY | 2023-08-13 20:24 | XMS_ITS | Continuity of Care Document ---
Author Name Unknown Organization [facility] Maximo Farias Julian lt Address [address] [place] [address]- Care Team Providers Care Warehouse Delivery Manager Name Role Phone Joe Valdez MD Primary Care Physician [phone] Encounter [facility] [place] Date(s): 12/27/20 - 01/03/21 [facility] [place], operated by [facility] [address] [place] [address]- Encounter Diagnosis Anemia, iron deficiency ;egd/colo neg iron infusions(Discharge Diagnosis) - 12/27/20 Vitamin D deficiency(Discharge Diagnosis) - 12/27/20 Compliance with medication regimen(Discharge Diagnosis) - 12/27/20 Hepatic steatosis(Discharge Diagnosis) - 12/27/20 Attending Physician: Joe Valdez MD Allergies, Adverse Reactions, Alerts Substance Reaction Severity Status doxycycline Active penicillin 1 Active gabapentin Active Bactrim Active Nuts Anaphylactic 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 Tolerated dose of cefepime on 10/2020 admission 2honey Immunizations Not Given Vaccine Date Status Refusal [...] 3 Refills, Maintenance, 02/05/20 11:51:00 EDT, Solution, [facility]/pharmacy #[id number], 153, cm, 02/01/20 9:49:00 EDT, Height, 89.6, kg, 12/26/19 19:50:00 EST, Dry Weight Start Date: 02/05/20 Status: Ordered carBAMazepine 100 mg oral tablet, extended release 200 mg, 2, tablet, By Mouth, 2 times a day, # 360 tablet, Refills 1, Tot. Refills 1, Maintenance, 07/01/20 16:38:00 EDT, Route to Pharmacy Electronically, [facility]/pharmacy #[id number], 153, cm, 04/23/20 14:32:00 EDT, Height, 89.6, kg, 12/26/19 19:50:00 EST, Dry... Start Date: 07/01/20 Stop Date: 12/28/20 Status: Ordered diabetic shoes diabetic shoes, See Instructions, # 1 each, Refills 0, Tot. Refills 0, Maintenance, dx: DM E11.9, 08/29/20 13:19:00 EDT, Compound Start Date: 08/29/20 Status: Ordered DIABETIC SHOES with inserts DIABETIC SHOES with inserts, See Instructions, # 1 each, Refills 1, Tot. Refills 1, Maintenance, DX: DM E11.9 Soumya Jaquez , 09/09/20 9:59:00 EDT, Compound Start Date: 09/09/20 Status: Ordered docusate sodium 100 mg oral capsule 1 capsule, By Mouth, 2 times a day, PRN NEEDED FOR CONSTIPATION, # 60 capsule, 5 Refills, Maintenance, 12/10/20 17:49:00 EST, [facility], 153, cm, 12/10/20 15:22:00 EST, Height, 79.6, [...] capsule, 5 Refills, Maintenance, 08/24/20 9:47:00 EDT, [facility]/pharmacy #[id number], 153, cm, 08/14/20 14:22:00 EDT, Height, 89.6, kg, 12/26/19 19:50:00 EST, Dry Weight Start Date: 08/24/20 Status: Ordered Emgality Prefilled Pen 120 mg/mL subcutaneous solution = 120 mg, Subcutaneous Infusion, Every 28 days, # 1 each, 11 Refills, Maintenance, 07/03/20 14:17:00 EDT, [facility]/pharmacy #[id number], 1st dose broke NEEDS ANOTHER, [...] 0 Refills, Soft Stop, 12/13/20 11:33:00 EST, Tablet,[facility]/pharmacy #[id number], Partial fill upon patient request [...] Dry Weight Start Date: 12/30/20 Status: Ordered Espinoza lift Espinoza lift, See [...] 07/21/20 23:30:00 EDT, Route to Pharmacy Electronically, [facility]/pharmacy #[id number], 153, cm, 07/09/20 13:32:00 EDT, Height, 89.6, kg,... Start Date: 07/21/20 Status: Ordered ipratropium nasal 42 mcg/inh spray 2 sprays, Nares, Both, 3 times a day, # 15 mL, 11 Refills, Maintenance, 01/09/20 10:37:00 EST, [place], [facility]/pharmacy #[id number], 2 sprays Nares, Both 3 times a day, 153, cm, 01/09/20 9:49:00 EST, Height, 89.6, kg, 12/26/19 19:50:00 EST, Dry Weight Start Date: 01/09/20 Status: Ordered KlonoPIN 0.5 mg oral tablet 1 tablet = 0.5 mg, By Mouth, 2 times a day, # 60 tablet, 0 Refills, Maintenance, 12/26/20 12:54:00 EST, Tablet, [facility]/pharmacy #[id number], 153, cm, 12/11/20 16:00:00 EST, Height, 79.6, kg, 11/21/20 21:34:00EST, Dry Weight Start Date: 12/26/20 Status: Ordered lidocaine 1.8% topical film 1 patch, Topically, Daily, leave on up to 12 hours, # 30 each, 11 Refills, Maintenance, 02/22/20 9:39:00 EDT, Film, [facility]/pharmacy #[id number], 1 patch Topically Daily,Instr:leave on up to 12 hours, 153, cm,02/01/20 9:49:00 EDT, Height, 89.6, kg, 12/26/19 19... Start Date: 02/22/20 Status: Ordered Linzess 290 mcg oral capsule 1 capsule, By Mouth, Daily, # 30 capsule, 0 Refills, Maintenance, 12/03/20 10:27:00 EST, [id number], 153, cm, 11/28/20 12:47:00 EST, Height, 79.6, kg, 11/21/20 21:34:00 EST, Dry Weight Start Date: 12/03/20 Status: Ordered metFORMIN 1000 mg oral tablet 1 tablet = 1,000 mg, By Mouth, 2 times a day, new fdose Soumya Jaquez, # 180 tablet, 1 Refills, Maintenance, 10/06/20 13:46:00 EST, Tablet, [facility]/pharmacy #[id number], 153, cm, 08/28/20 15:44:00 EDT, Height, 89.6, kg, 12/26/19 19:50:00 EST, Dry Weight Start Date: 10/06/20 Status: Ordered omeprazole 20 mg oral delayed release tablet 1 tablet = 20 mg, By Mouth, Daily, # 90 tablet, 0 Refills, Maintenance, 09/29/20 16:38:00 EST, EC Tablet, [facility]/pharmacy #[id number], 153, cm, 08/28/20 15:44:00 EDT, Height, 89.6, kg, 12/26/19 19:50:00 EST, Dry Weight Start Date: 09/29/20 Stop Date: 12/28/20 Status: Ordered ondansetron 4 mg oral tablet 1 tablet = 4 mg, By Mouth, Every 8 hours, PRN as needed for nausea/vomiting, # 15 tablet, 0 Refills, Maintenance, 11/24/20 14:17:00 EST, Tablet, [facility], Partial fill upon patient request if the prescription is for a schedule II opioi... Start Date: 11/24/20 Stop Date: 11/29/20 Status: Ordered Ozempic (1 mg dose) 2 mg/1.5 mL subcutaneous solution = 1 mg, Subcutaneous Injection, Every week, # 3 mL, 11 Refills, Maintenance, 06/04/20 17:34:00 EDT,Solution, [facility]/pharmacy #[id number], 153, cm, 04/23/20 14:32:00 EDT, Height, 89.6, kg, 12/26/19 19:50:00 EST, Dry Weight Start Date: 06/04/20 Status: Ordered Paragard IUD Maintenance, 05/05/19 10:52:19 EDT, Compound Start Date: 05/05/19 Status: Ordered PEG-3350 with Electrolytes (Eqv-NuLYTELY) oral powder for reconstitution See Instructions, as directed, # 1 each, 0 Refills, Maintenance, 12/26/20 14:56:00 EST, [facility], Ok to substitute for ANY gallon prep, as directed, 153, cm, 12/11/20 16:00:00 EST, Height, 79.6, kg, 11/21/20 21:34:00 EST, Dry Weight Start Date: 12/26/20 Status: Ordered see below see below, See [...] 11 Refills, Maintenance, 11/28/20 13:19:00 EST, Aerosol, [facility]/pharmacy #[id number], Partial fill upon patient request [...] cm, 12/11/... Start Date: 12/19/20 Status: Ordered zolpidem 5 mg oral tablet 1 tablet = 5 mg, By Mouth, Daily at bedtime, PRN as needed for insomnia, # 30 tablet, 0 Refills, Maintenance, 12/26/20 12:54:00 EST, Tablet, [id number], 153, cm, 12/11/20 16:00:00 EST, Height, 79.6, kg, 11/21/20 21:34:00 EST, Dry Weight Start Date: 12/26/20 Status: Ordered Problem List Condition Effective Dates [...] deficiency ;egd /colo neg iron infusions(Confirmed) Active Major depression(Confirmed) Active Migraine(Confirmed) Active Asthma, [...] Effective Dates Health Status Clinical Service Informant Anemia, iron deficiency ;egd/colo neg iron infusions Discharge Diagnosis 12/27/20 Vitamin D deficiency Discharge Diagnosis 12/27/20 Compliance with medication regimen Discharge Diagnosis 12/27/20 Hepatic steatosis Discharge Diagnosis 12/27/20 Vital Signs Most recent to oldest [Reference Range]: 1 Height 153 cm (12/27/20 8:50 AM) Social History Social History Type Response Smoking Status Never smoker; Type: Cigarettes entered on: 06/28/18 Sex
--- OUTSIDE RECORDS SUMMARY | 2023-08-13 20:25 | XMS_ITS | Continuity of Care Document ---
Author Name Unknown Organization [facility] Address [address] [place] [address]- Care Team Providers Care Impress Associate Name Role Phone Anupama COREAS, Len Thomas Primary Care Physician Encounter [facility] Date(s): 05/19/21 - 06/18/21 [facility] [address] [place] [address]- Allergies, Adverse Reactions, Alerts Substance Reaction Severity [...] 3 Refills, Maintenance, 02/05/20 11:51:00 EDT, Solution, [facility]/pharmacy #[id number], 153, cm, 02/01/20 9:49:00 EDT, Height, [...] 01/29/21 15:01:00 EST, Route to Pharmacy Electronically, [facility]/pharmacy #[id number], 153, cm, 01/01/21 8:33:00 EST, Height, [...] 0 Refills, Maintenance, 05/07/21 9:18:00 EDT, Tablet, [facility]/pharmacy #[id number], Partial fill upon patient request if the [...] 13:59:00 EST,... Start Date: 05/14/21 Status: Ordered [facility] VITAMIN D3 25 MCG SOFTGEL TAKE 1 [...] HEIGHT- 5' WEIGHT- 175LBS LIFETIME NEED , 05/19/21 14:55:00 EDT,Supply Start Date: 05/19/21 Status: Ordered docusate sodium 100 mg oral capsule 1 capsule, By Mouth, 2 times a day, PRN NEEDED FOR CONSTIPATION, # 60 capsule, 5 Refills, Maintenance, 12/10/20 17:49:00 EST, [id number], 153, cm, 12/10/20 15:22:00 EST, Height, 79.6, [...] capsule, 1 Refills, Maintenance, 06/07/21 14:13:00 EDT, [id number], 153, cm, 05/14/21 12:43:00 EDT, Height, 79.6, [...] 07/21/20 23:30:00 EDT, Route to Pharmacy Electronically, [facility]/pharmacy #[id number], 153, cm, 07/09/20 13:32:00 EDT, Height, 89.6, kg,... Start Date: 07/21/20 Status: Ordered ipratropium nasal 42 mcg/inh spray 2 sprays, Nares, Both, 3 times a day, # 15 mL, 11 Refills, Maintenance, 01/09/20 10:37:00 EST, [place], [facility]/pharmacy #[id number], 2 sprays Nares, Both 3 times a day, 153, cm, 01/09/20 9:49:00 EST, Height, 89.6, kg, 12/26/19 19:50:00 EST, Dry Weight Start Date: 01/09/20 Status: Ordered ketoconazole 2% topical shampoo 1 application, Topically, Once, # 120 mL, 1 Refills, Soft Stop, 05/07/21 8:34:00 EDT, Shampoo, [facility]/pharmacy #[id number], 1 application Topically Once, 153, cm, 05/07/21 7:55:00 EDT, Height, 79.6, kg, 12/30/20 13:59:00 EST, Dry Weight Start Date: 05/07/21 Status: Ordered KlonoPIN 0.5 mg oral tablet 1 tablet = 0.5 mg, By Mouth, 2 times a day, # 60 tablet, 0 Refills, Maintenance, 02/18/21 9:54:00 EDT, Tablet, [facility]/pharmacy #[id number], 153, cm, 01/29/21 15:33:00 EST, Height, 79.6, kg, 12/30/20 13:59:00 EST, Dry Weight Start Date: 02/18/21 Status: Ordered lidocaine 1.8% topical film 1 patch, Topically, Daily, leave on up to 12 hours, # 30 each, 11 Refills, Maintenance, 02/22/20 9:39:00 EDT, Film, [facility]/pharmacy #[id number], 1 patch Topically Daily,Instr:leave on up [...] Refills, Maintenance, 09/29/20 16:38:00 EST, EC Tablet, [facility]/pharmacy #[id number], 153, cm, 08/28/20 15:44:00 EDT, Height, 89.6, kg, 12/26/19 19:50:00 EST, Dry Weight Start Date: 09/29/20 Stop Date: 12/28/20 Status: Ordered ondansetron 4 mg oral tablet 1 tablet = 4 mg, By Mouth, Every 8 hours, PRN as needed for nausea/vomiting, # 15 tablet, 0 Refills, Maintenance, 11/24/20 14:17:00 EST, Tablet, [facility], Partial fill upon [...] mL, 11 Refills, Maintenance, 06/04/20 17:34:00 EDT,Solution, [facility]/pharmacy #[id number], 153, cm, 04/23/20 14:32:00 EDT, Height, 89.6, kg, 12/26/19 19:50:00 EST, Dry Weight Start Date: 06/04/20 Status: Ordered Paragard IUD Maintenance, 05/05/19 10:52:19 EDT, Compound Start Date: 05/05/19 Status: Ordered PEG-3350 with Electrolytes (Eqv-NuLYTELY) oral powder for reconstitution See Instructions, as directed, # 1 each, 0 Refills, Maintenance, 12/26/20 14:56:00 EST, [id number], Ok to substitute for ANY gallon prep, as directed, 153, cm, 12/11/20 16:00:00 EST, Height, 79.6, kg, 11/21/20 21:34:00 EST, Dry Weight Start Date: 12/26/20 Status: Ordered plecanatide 3 mg oral tablet 1 tablet = 3 mg, By Mouth, Daily, # 30 tablet, 0 Refills, Maintenance, 02/14/21 11:40:00 EDT, [facility]/pharmacy #[id number], Partial fill upon patient request if the [...] HEIGHT- 5' WEIGHT- 175LBS LIFETIME NEED , 05/19/21 14:55:00 EDT, Supply Start Date: 05/19/21 Status: Ordered READY BATH WIPES READY BATH WIPES, See Instructions, # 90 each, Refills 11, Tot. Refills 11, Maintenance, DX: FIBROMYALGI M79.7 HEIGHT- 5' WEIGHT- 175LBS LIFETIME NEED , 02/03/21 14:22:00 EDT, Supply Start Date: 02/03/21 Status: Ordered RECLINER RECLINER, See Instructions, # 1 each, Refills 0, Tot. Refills 0, Maintenance, DX: FIBROMDONTRELLGI M79.7HEIGHT- 5' WEIGHT- 175LBS LIFETIME NEED FAX: [phone], 02/03/21 14:22:00 EDT, Supply Start Date: 02/03/21 [...] 11 Refills, Maintenance, 11/28/20 13:19:00 EST, Aerosol, [facility]/pharmacy #[id number], Partial fill upon patient request if the prescription is for a schedule II opioid drug., 153, cm, 11/28/20 12:47:00 EST, Height, 79.6, kg,... Start Date: 11/28/20 Status: Ordered topiramate 25 mg oral tablet 2 tablet, By Mouth, 2 times a day, # 360 tablet, 1 Refills, Maintenance, 03/03/21 18:31:00 EDT, [facility], 153, cm, 02/28/21 11:14:00 EDT, Height, 79.6, [...]
--- OUTSIDE RECORDS SUMMARY | 2023-08-13 20:25 | XMS_ITS | Continuity of Care Document ---
Author Name Unknown Organization [facility] Address [address] [place] [address]- Care Team Providers Care Housekeeping Supervisor Name Role Phone Joe Valdez MD Primary Care Physician Encounter [facility] AC[facility] R [id number] Date(s): 12/08/19 - 01/27/20 [facility] [address] [place] [address]- [facility] Attending Physician: Joe Valdez MD Allergies, Adverse [...] 1 capsule, By Mouth, Every 6 hours, 0 Refills, Maintenance, 05/05/19 10:40:48 EDT Start Date: 05/05/19 Status: Ordered Aerochamber See Instructions, # 1 kit, Refills 11, Tot. Refills 11, Maintenance, use with mdi, 01/09/20 10:38:00 EST, Compound, 153, cm, 01/09/20 9:49:00 EST, Height, 89.6, kg, 12/26/19 19:50:00 EST, Dry Weight Start Date: 01/09/20 Status: Ordered carBAMazepine 100 mg oral tablet, extended release 200 mg, 2, tablet, By Mouth, 2 times a day, # 120 tablet, Refills 2, Tot. Refills 2, Maintenance, 01/18/20 17:04:00 EST, Route to Pharmacy Electronically, [facility]/pharmacy #[id number], 153, cm, 01/09/20 9:49:00 EST, Height, 89.6, kg, 12/26/19 19:50:00 EST, Dry... Start Date: 01/18/20 Status: Ordered diabetic shoes diabetic shoes, See Instructions, # 1 each, Refills 0, Tot. Refills 0, Maintenance, dx: DM E11.9 Soumyamarcos Jaquez, 05/26/19 8:12:35 EDT, Compound Start Date: 05/26/19 Status: Ordered DIABETIC SHOES with inserts DIABETIC SHOES with inserts, See Instructions, # 1 each, Refills 1, Tot. Refills 1, Maintenance, DX: DM E11.9 Soumyamarcos Murphys , 01/03/20 15:52:00 EST, Compound Start Date: 01/03/20 Status: Ordered docusate sodium 100 mg oral tablet 1 tablet = 100 mg, By Mouth, 2 times a day, PRN for constipation, # 60 tablet, 0 Refills, Maintenance, 01/01/20 14:51:00 EST, Tablet, [facility]/pharmacy #[id number], 153, cm, 12/28/19 7:42:00 EST, Height, 89.6, kg, 12/26/19 19:50:00 EST, Dry Weight Start Date: 01/01/20 Status: Ordered Dulera 200 mcg-5 mcg/inh inhalation aerosol 2 puffs, Inhalation, 2 times a day, Soumya Jaquez, # 13 Gm, 3 Refills, Maintenance, 09/19/19 13:54:11 EDT, Aerosol, 2 puffs Inhalation 2 times a day,Instr:Soumya Jaquez Start Date: 09/19/19 Status: Ordered Emgality Prefilled Pen 120 mg/mL subcutaneous solution = 120 mg, Subcutaneous Infusion, Every 28 days, First injection given in office, patient supplied meds. Two injections given per order one to each arm subcutaneously. Patient tolerated well. [facility] [id number] EXP 11/2020 LOT [id number] [facility] [id number]... Start Date: 06/02/19 Status: Ordered EpiPen 2-Freeman 0.3 mg injectable [...] EDT, Compound Start Date: 05/31/19 Status: Ordered ibuprofen 600 mg oral tablet 600 mg, 1, tablet, By Mouth, 2 times a day, with food Soumya Quiniones, # 60 tablet, Refills 0, Tot.Refills 0, Maintenance, 10/13/19 7:45:01 EST, Route to Pharmacy Electronically, [id number], [facility]/pharmacy #[id number] Start Date: 10/13/19 Status: Ordered ipratropium nasal 42 mcg/inh spray 2 sprays, Nares, Both, 3 times a day, # 15 mL, 11 Refills, Maintenance, 01/09/20 10:37:00 EST, [place], [facility]/pharmacy #[id number], 2 sprays Nares, Both 3 times a day, 153, cm, 01/09/20 9:49:00 EST, Height, 89.6, kg, 12/26/19 19:50:00 EST, Dry Weight Start Date: 01/09/20 Status: Ordered KlonoPIN 0.5 mg oral tablet 1 tablet = 0.5 mg, By Mouth, 2 times a day, # 24 tablet, 0 Refills, Maintenance, 12/30/19 10:27:00 EST, Tablet, [id number], 153, cm, 12/28/19 7:42:00 EST, Height, 89.6, kg, 12/26/19 19:50:00 EST, Dry Weight Start Date: 12/30/19 Status: Ordered Linzess 290 mcg oral capsule 1 capsule = 290 mcg, By Mouth, Daily, # 30 capsule, 0 Refills, Maintenance, 01/01/20 14:50:00 EST, Capsule, [id number], 153, cm, 12/28/19 7:42:00 EST, Height, 89.6, kg, 12/26/19 19:50:00 EST,Dry Weight Start Date: 01/01/20 Status: Ordered metFORMIN 1000 mg oral tablet 1 tablet = 1,000 mg, By Mouth, 2 times a day, new fdose Soumya Jaquez, # 180 tablet, 3 Refills, Maintenance, 09/15/19 8:25:51 EDT, Tablet Start Date: 09/15/19 Status: Ordered omeprazole 20 mg oral delayed release tablet 1 tablet = 20 mg, By Mouth, Daily, Soumya Jaquez, # 30 tablet, 11 Refills, Maintenance, 05/26/19 8:03:22 EDT, EC Tablet Start Date: 05/26/19 Status: Ordered Ozempic (0.25 mg or 0.5 mg dose) 2 mg/1.5 mL subcutaneous solution = 0.25 mg, Subcutaneous Injection, Every week, # 1.5 mL, 1 Refills, Maintenance, 12/28/19 8:08:00 EST, [facility], [id number], 153, cm, 12/28/19 7:42:00 EST, Height, 89.6, kg, 12/26/19 19:50:00EST, Dry Weight Start Date: 12/28/19 Stop Date: 02/22/20 Status: Ordered Paragard IUD Maintenance, 05/05/19 10:52:19 EDT, Compound Start Date: 05/05/19 Status: Ordered PARoxetine 10 mg oral tablet 10 mg, 1, tablet, By Mouth, Daily, new dose, # 90 tablet, Refills 0, Tot. Refills 0, Maintenance, 01/25/20 10:20:00 EST, Route to Pharmacy Electronically, [facility]/pharmacy #[id number], 153, cm, 01/09/20 9:49:00 EST, Height, 89.6, kg, 12/26/19 19:50:00 EST, Dry... 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
--- OUTSIDE RECORDS SUMMARY | 2023-08-13 20:25 | XMS_ITS | Continuity of Care Document ---
Author Name Unknown Organization [facility] ter Address [address] [place] [address]- Care Team Providers Care United [place] Marshal Name Role Phone Suha COREAS, Karin Kelsey Primary Care Physicia n Unavailable Encounter [facility] Date(s): 02/12/22 - 04/09/[address] [address] Attending Physician: Karin Borden NP Admitting Physician: Suha COREAS, Karin Kelsey Referring Physician: Suha COREAS, Karin Kelsey Allergies, Adverse Reactions, Alerts Substance Reaction Severity [...] mL, 0 Refills, Maintenance, 08/31/21 20:13:00 EDT, [facility]/pharmacy #[id number], 153, cm, 08/21/21 11:10:00 EDT, [...] 10/03/21 15:12:00 EST, Route to Pharmacy Electronically, [facility]/pharmacy #[id number], 153, cm, 10/02/21 11:33:00 EST, [...] 0 Refills, Maintenance, 05/07/21 9:18:00 EDT, Tablet, [facility]/pharmacy #[id number], Partial fill upon patient request if the [...] 13:59:00 EST,... Start Date: 05/14/21 Status: Ordered [facility] VITAMIN D3 25 MCG SOFTGEL TAKE [...] Refills, Maintenance, 12/10/20 17:49:00 EST, [facility], 153, cm, 12/10/20 15:22:00 EST, Height, 79.6, [...] 2 Refills, Maintenance, 10/03/21 15:17:00 EST, [place] [employer], [id number], Partial fill upon patient request if the [...] 11, Tot. Refills 11, Maintenance, LARGE DX: JORDANA M79.7 HEIGHT- 5' WEIGHT- 175LBS [...] 09/03/21 13:19:00 EDT, Route to Pharmacy Electronically, [facility]/pharmacy #[id number], 153, cm, 09/02/21 13:58:00 EDT, Height, 80, kg, 1... Start Date: 09/03/21 Status: Ordered ipratropium nasal 42 mcg/inh spray 2 sprays, Nares, Both, 3 times a day, # 15 mL, 11 Refills, Maintenance, 10/03/21 15:19:00 EST, [employer], [facility]/pharmacy #[id number], 2 sprays Nares, Both 3 times a day, 153, cm, 10/02/21 11:33:00 EST, Height, 80, kg, 09/02/21 13:29:00 EDT, Dry Weight Start Date: 10/03/21 Status: Ordered ketoconazole 2% topical shampoo 1 application, Topically, Once, # 120 mL, 1 Refills, Soft Stop, 05/07/21 8:34:00 EDT, Shampoo, [facility]/pharmacy #[id number], 1 application Topically Once, 153, cm, 05/07/21 7:55:00 EDT, Height, 79.6, kg, 12/30/20 13:59:00 EST, Dry Weight Start Date: 05/07/21 Status: Ordered KlonoPIN 0.5 mg oral tablet 1 tablet = 0.5 mg, By Mouth, 2 times a day, # 56 tablet, 0 Refills, Maintenance, 01/29/22 17:00:00 EST, Tablet, [facility]/pharmacy #[id number], 153, cm, 10/02/21 11:33:00 EST, Height, 80, kg, 09/02/21 13:29:00 EDT, Dry Weight Start Date: 01/29/22 Stop Date: 02/26/22 Status: Ordered lidocaine 1.8% topical film 1 patch, Topically, Daily, leave on up to 12 hours, # 30 each, 11 Refills, Maintenance, 02/22/20 9:39:00 EDT, Film, [facility]/pharmacy #[id number], 1 patch Topically Daily,Instr:leave on up to 12 hours, 153, cm,02/01/20 9:49:00 EDT, Height, 89.6, kg, 12/26/19 19... Start Date: 02/22/20 Status: Ordered Linzess 290 mcg oral capsule 1 capsule = 290 mcg, By Mouth, Daily, TAKE 1 CAPSULE BY MOUTH EVERY DAY, # 90 capsule, 0 Refills, Maintenance, 10/03/21 15:14:00 EST, Capsule, [facility]/pharmacy #[id number], Partial fill upon patient request [...] EST, Supply Start Date: 10/03/21 Status: Ordered Calloway 0.65% nasal spray 2 sprays, Nares, Both, 4 times a day, # 1 each, 0 Refills, Maintenance, 06/23/21 9:54:00 EDT, [facility]/pharmacy #[id number], Partial fill upon patient request if the prescription is for a schedule II opioid drug., 2 sprays Nares, Both 4 times a day, 153, cm, ... Start Date: 06/23/21 Status: Ordered omeprazole 20 mg oral delayed release tablet 1 tablet = 20 mg, By Mouth, Daily, # 90 tablet, 0 Refills, Maintenance, 10/03/21 15:20:00 EST, EC Tablet, [facility]/pharmacy #[id number], 153, cm, 10/02/21 11:33:00 EST, Height, 80, kg, 09/02/21 13:29:00 EDT, Dry Weight Start Date: 10/03/21 Stop Date: 01/01/22 Status: Ordered ondansetron 4 mg oral tablet 1 tablet = 4 mg, By Mouth, Every 8 hours, PRN as needed for nausea/vomiting, # 15 tablet, 0 Refills, Maintenance, 10/03/21 15:20:00 EST, Tablet, [facility]/pharmacy #[id number], Partial fill upon patient request [...] Unknown, 1 Refills, Maintenance, 10/03/21 15:21:00 EST, [facility]/pharmacy #[id number], 90, INJECT 1MG INTO THE SKIN WEEKLY, 153, cm, 10/02/21 11:33:00 EST,Height, 80, kg, 09/02/21 13:29:00 EDT, Dry Weight Start Date: 10/03/21 Status: Ordered Paragard IUD Maintenance, 05/05/19 10:52:19 EDT, Compound Start Date: 05/05/19 Status: Ordered PEG-3350 with Electrolytes (Eqv-NuLYTELY) oral powder for reconstitution See Instructions, as directed, # 1 each, 0 Refills, Maintenance, 12/26/20 14:56:00 EST, [facility], Ok to substitute for [...] 0, Tot. Refills 0, Maintenance, DX: FIBROMYALGI M79.7HEIGHT- 5' WEIGHT- 175LBS LIFETIME NEED FAX: [phone], 02/03/21 14:22:00 EDT, Supply Start Date: 02/03/21 [...] # 360 tablet, 1 Refills, [facility], 153, cm, 08/21/21 11:10:00 EDT, Height, 79.6, [...] insomnia, # 28 tablet, 0 Refills, Maintenance, 01/29/22 17:00:00 EST, Tablet, [id number], 153, cm, 10/02/21 11:33:00 EST, Height, 80, kg, 09/02/21 13:29:00 EDT, Dry Weight Start Date: 01/29/22 Stop Date: 02/26/22 Status: Ordered Problem List Condition Effective Dates [...]
--- OUTSIDE RECORDS SUMMARY | 2023-08-13 20:25 | XMS_ITS | Continuity of Care Document ---
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 Name Role Phone Courtney QUACH, Joe Carrion Primary Care Physician Encounter [facility] Date(s): 08/09/20 - 09/08/20 [facility] Adult [address] [place] [address]- [facility] Allergies, Adverse Reactions, Alerts Substance [...] 07/01/20 16:38:00 EDT, Route to Pharmacy Electronically, [facility]/pharmacy #[id number], 153, cm, 04/23/20 14:32:00 EDT, [...] 5 Refills, Maintenance, 05/01/20 16:21:00 EDT, Tablet, [facility]/pharmacy #[id number], 153, cm, 04/23/20 14:32:00 EDT, [...] capsule, 5 Refills, Maintenance, 08/24/20 9:47:00 EDT, [facility]/pharmacy #[id number], 153, cm, 08/14/20 14:22:00 EDT, Height, 89.6, kg, 12/26/19 19:50:00 EST, Dry Weight Start Date: 08/24/20 Status: Ordered Emgality Prefilled Pen 120 mg/mL subcutaneous solution = 120 mg, Subcutaneous Infusion, Every 28 days, # 1 each, 11 Refills, Maintenance, 07/03/20 14:17:00 EDT, [facility]/pharmacy #[id number], 1st dose broke NEEDS ANOTHER, [...] 07/21/20 23:30:00 EDT, Route to Pharmacy Electronically, [facility]/pharmacy #[id number], 153, cm, 07/09/20 13:32:00 EDT, Height, 89.6, kg,... Start Date: 07/21/20 Status: Ordered ipratropium nasal 42 mcg/inh spray 2 sprays, Nares, Both, 3 times a day, # 15 mL, 11 Refills, Maintenance, 01/09/20 10:37:00 EST, [place], [facility]/pharmacy #[id number], 2 sprays Nares, Both 3 times a day, 153, cm, 01/09/20 9:49:00 EST, Height, 89.6, kg, 12/26/19 19:50:00 EST, Dry Weight Start Date: 01/09/20 Status: Ordered KlonoPIN 0.5 mg oral tablet 1 tablet = 0.5 mg, By Mouth, 2 times a day, # 14 tablet, 0 Refills, Maintenance, 08/09/20 10:10:00 EDT, Tablet, [facility]/pharmacy #[id number], 153, cm, 08/05/20 13:58:00 EDT, Height, 89.6, kg, 12/26/19 19:50:00EST, Dry Weight Start Date: 08/09/20 Stop Date: 08/16/20 Status: Ordered lidocaine 1.8% topical film 1 patch, Topically, Daily, leave on up to 12 hours, # 30 each, 11 Refills, Maintenance, 02/22/20 9:39:00 EDT, Film, [facility]/pharmacy #[id number], 1 patch Topically Daily,Instr:leave on up to 12 hours, 153, cm,02/01/20 9:49:00 EDT, Height, 89.6, kg, 12/26/19 19... Start Date: 02/22/20 Status: Ordered Linzess 290 mcg oral capsule 1 capsule, By Mouth, Daily, # 30 capsule, 0 Refills, Maintenance, 08/28/20 14:18:00 EDT, [id number], 153, cm, 08/14/20 14:22:00 EDT, Height, 89.6, kg, 12/26/19 19:50:00 EST, Dry Weight Start Date: 08/28/20 Status: Ordered metFORMIN 1000 mg oral tablet 1 tablet = 1,000 mg, By Mouth, 2 times a day, new fdose Soumya Jaquez, # 180 tablet, 3 Refills, Maintenance, 09/15/19 8:25:51 EDT, Tablet Start Date: 09/15/19 Status: Ordered omeprazole 20 mg oral delayed release tablet 1 tablet = 20 mg, By Mouth, Daily, # 90 tablet, 0 Refills, Maintenance, 07/01/20 16:38:00 EDT, EC Tablet, [facility]/pharmacy #[id number], 153, cm, 04/23/20 14:32:00 EDT, [...] insomnia, # 30 tablet, 0 Refills, Maintenance, 09/05/20 7:19:00 EDT, Tablet, [id number], 153, cm, 08/28/20 15:44:00 EDT, Height,89.6, kg, 12/26/19 19:50:00 EST, Dry Weight Start Date: 09/05/20 Status: Ordered Problem List Condition Effective Dates Status Health Status Inform ant 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
--- OUTSIDE RECORDS SUMMARY | 2023-08-13 20:25 | XMS_ITS | Continuity of Care Document ---
Author Name Unknown Organization [facility] Adult Address [address] [place] [address]- Care Team Providers Care Pile Trimmer Name Role Phone Suha COREAS, Karin Kelsey Primary Care Physicia n Unavailable [place] [facility] [place]22 - 10[place]/22 [facility] Adult [address] [place] [address]- Allergies, Adverse Reactions, Alerts Substance Reaction Severity [...] mL, 0 Refills, Maintenance, 08/31/21 20:13:00 EDT, [facility]/pharmacy #[id number], 153, cm, 08/21/21 11:10:00 EDT, Height, [...] 10/03/21 15:12:00 EST, Route to Pharmacy Electronically, [facility]/pharmacy #[id number], 153, cm, 10/02/21 11:33:00 EST, Height, [...] 0 Refills, Maintenance, 05/07/21 9:18:00 EDT, Tablet, [facility]/pharmacy #[id number], Partial fill upon patient request if [...] 13:59:00 EST,... Start Date: 05/14/21 Status: Ordered [facility] VITAMIN D3 25 MCG SOFTGEL TAKE 1 [...] Refills, Maintenance, 12/10/20 17:49:00 EST, [id number], 153, cm, 12/10/20 15:22:00 EST, Height, 79.6, [...] 2 Refills, Maintenance, 10/03/21 15:17:00 EST, Nasal [place], [facility]/pharmacy #0693, Partial fill upon patient request if [...] 09/03/21 13:19:00 EDT, Route to Pharmacy Electronically, [facility]/pharmacy #[id number], 153, cm, 09/02/21 13:58:00 EDT, Height, 80, kg, 1... Start Date: 09/03/21 Status: Ordered ipratropium nasal 42 mcg/inh spray 2 sprays, Nares, Both, 3 times a day, # 15 mL, 11 Refills, Maintenance, 10/03/21 15:19:00 EST, [place], [facility]/pharmacy #0693, 2 sprays Nares, Both 3 times a day, 153, cm, 10/02/21 11:33:00 EST, Height, 80, kg, 09/02/21 13:29:00 EDT, Dry Weight Start Date: 10/03/21 Status: Ordered ketoconazole 2% topical shampoo 1 application, Topically, Once, # 120 mL, 1 Refills, Soft Stop, 05/07/21 8:34:00 EDT, Shampoo, [facility]/pharmacy #[id number], 1 application Topically Once, 153, cm, 05/07/21 7:55:00 EDT, Height, 79.6, kg, 12/30/20 13:59:00 EST, Dry Weight Start Date: 05/07/21 Status: Ordered KlonoPIN 0.5 mg oral tablet 1 tablet = 0.5 mg, By Mouth, 2 times a day, # 56 tablet, 0 Refills, Maintenance, 01/29/22 17:00:00 EST, Tablet, [facility]/pharmacy #[id number], 153, cm, 10/02/21 11:33:00 EST, Height, 80, kg, 09/02/21 13:29:00 EDT, Dry Weight Start Date: 01/29/22 Stop Date: 02/26/22 Status: Ordered lidocaine 1.8% topical film 1 patch, Topically, Daily, leave on up to 12 hours, # 30 each, 11 Refills, Maintenance, 02/22/20 9:39:00 EDT, Film, [facility]/pharmacy #[id number], 1 patch Topically Daily,Instr:leave on up to 12 hours, 153, cm,02/01/20 9:49:00 EDT, Height, 89.6, kg, 12/26/19 19... Start Date: 02/22/20 Status: Ordered Linzess 290 mcg oral capsule 1 capsule = 290 mcg, By Mouth, Daily, TAKE 1 CAPSULE BY MOUTH EVERY DAY, # 90 capsule, 0 Refills, Maintenance, 10/03/21 15:14:00 EST, Caps[place], [facility]/pharmacy #[id number], Partial fill upon patient request ifthe [...] EST, Supply Start Date: 10/03/21 Status: Ordered [place] 0.65% nasal spray 2 sprays, Nares, Both, 4 times a day, # 1 each, 0 Refills, Maintenance, 06/23/21 9:54:00 EDT, [facility]/pharmacy #[id number], Partial fill upon patient request if the prescription is for a schedule II opioid drug., 2 sprays Nares, Both 4 times a day, 153, cm, 08/... Start Date: 06/23/21 Status: Ordered omeprazole 20 mg oral delayed release tablet 1 tablet = 20 mg, By Mouth, Daily, # 90 tablet, 0 Refills, Maintenance, 10/03/21 15:20:00 EST, EC Tablet, [facility]/pharmacy #[id number], 153, cm, 10/02/21 11:33:00 EST, Height, 80, kg, 09/02/21 13:29:00 EDT, Dry Weight Start Date: 10/03/21 Stop Date: 01/01/22 Status: Ordered ondansetron 4 mg oral tablet 1 tablet = 4 mg, By Mouth, Every 8 hours, PRN as needed for nausea/vomiting, # 15 tablet, 0 Refills, Maintenance, 10/03/21 15:20:00 EST, Tablet, [facility]/pharmacy #[id number], Partial fill upon patient request if [...] Unknown, 1 Refills, Maintenance, 10/03/21 15:21:00 EST, [facility]/pharmacy #[id number], 90, INJECT 1MG INTO THE SKIN WEEKLY, 153, cm, 10/02/21 11:33:00 EST,Height, 80, kg, 09/02/21 13:29:00 EDT, Dry Weight Start Date: 10/03/21 Status: Ordered Paragard IUD Maintenance, 05/05/19 10:52:19 EDT, Compound Start Date: 05/05/19 Status: Ordered PEG-3350 with Electrolytes (Eqv-NuLYTELY) oral powder for reconstitution See Instructions, as directed, # 1 each, 0 Refills, Maintenance, 12/26/20 14:56:00 EST, [id number], Ok to substitute [...] M79.7HEIGHT- 5' WEIGHT- 175LBS LIFETIME NEED FAX: [phone], 02/03/21 14:22:00 EDT, Supply Start Date: 02/03/21 [...] # 360 tablet, 1 Refills, [id number], 153, cm, 08/21/21 11:10:00 EDT, Height, 79.6, [...] Date: 02/26/22 Status: Ordered Problem List Condition Confirmation Course Effective Dates Status H ealth Status Informant 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 date Confirmed Active Anemia, iron deficiency ;egd/colo neg iron infusions Confirmed Active Irritable bowel syndrome with constipation Confirmed Active Major depression Confirmed Active Migraine Confirmed Active Asthma, moderate persistent Confirmed Active Nephrolithiasis Confirmed Active Obese class I Confirmed Active Polypharmacy Confirmed Active PTSD (post-traumatic stress disorder); pyschiatry Confirmed Active Fibromyalgia, primary holyk pain mnt/ failed lyrica/lamotrigine/na ltrexone/gabapentin Confirmed Active Hepatic steatosis fib 4 ,1.31 [...] Team Personnel Name: Kathy Mendoza RN Position: [facility] RN Member Role: Primary Care Nurse Name: Nevin Smith NP Position: [facility] Associate Professional Member Role: Primary Care Nurse Address: Address: [address] [place] [address] Name: Bradly Bucio Position: [facility] RN Member Role: Primary Care Nurse Name: Elana Silver RN Position: [facility] RN Member Role: Primary Care Nurse Name: Adriana Lamar RN Position: [facility] RN Member Role: Primary Care Nurse Name: Karin Borden NP Position: [facility] Outreach Member Role: PCP Address: Address: [address] [place] [id number] Name: Lory Gillis RN Position: [facility] RN Member Role: Primary Care Nurse Name: Levy Buenrostro RN Position: [facility] RN Member Role: Primary Care Nurse Name: Isabela Quiroz RN Position: [facility] Outreach Member Role: Primary Care Nurse Name: Keyanna Michaels RN Position: [facility] RN Member Role: Primary Care Nurse Care Team Related Persons Name: JESSICA LAUREN Address: home [address] [place] [address] Name: LAUREN ALDANA Address: home [address] [place] [address]
--- OUTSIDE RECORDS SUMMARY | 2023-08-13 20:25 | XMS_ITS | Continuity of Care Document ---
Author Name Unknown Organization [facility] Jarrett Julian lt Address [address] [place] [address]- Care Team Providers Care Furnace Repair Mechanic Name Role Phone Courtney QUACH, Joe Carrion Primary Care Physician Encounter [facility] [place] Date(s): 08/05/20 - 09/04/20 [facility] Adult [address] [place] [address]- [facility] Allergies, Adverse Reactions, Alerts Substance [...] 07/01/20 16:38:00 EDT, Route to Pharmacy Electronically, [facility]/pharmacy #[id number], 153, cm, 04/23/20 14:32:00 EDT, [...] 5 Refills, Maintenance, 05/01/20 16:21:00 EDT, Tablet, [facility]/pharmacy #[id number], 153, cm, 04/23/20 14:32:00 EDT, [...] capsule, 5 Refills, Maintenance, 08/24/20 9:47:00 EDT, [facility]/pharmacy #[id number], 153, cm, 08/14/20 14:22:00 EDT, Height, 89.6, kg, 12/26/19 19:50:00 EST, Dry Weight Start Date: 08/24/20 Status: Ordered Emgality Prefilled Pen 120 mg/mL subcutaneous solution = 120 mg, Subcutaneous Infusion, Every 28 days, # 1 each, 11 Refills, Maintenance, 07/03/20 14:17:00 EDT, [facility]/pharmacy #[id number], 1st dose broke NEEDS ANOTHER, [...] 07/21/20 23:30:00 EDT, Route to Pharmacy Electronically, [facility]/pharmacy #[id number], 153, cm, 07/09/20 13:32:00 EDT, Height, 89.6, kg,... Start Date: 07/21/20 Status: Ordered ipratropium nasal 42 mcg/inh spray 2 sprays, Nares, Both, 3 times a day, # 15 mL, 11 Refills, Maintenance, 01/09/20 10:37:00 EST, [place], [facility]/pharmacy #[id number], 2 sprays Nares, Both 3 times a day, 153, cm, 01/09/20 9:49:00 EST, Height, 89.6, kg, 12/26/19 19:50:00 EST, Dry Weight Start Date: 01/09/20 Status: Ordered KlonoPIN 0.5 mg oral tablet 1 tablet = 0.5 mg, By Mouth, 2 times a day, # 14 tablet, 0 Refills, Maintenance, 08/09/20 10:10:00 EDT, Tablet, [facility]/pharmacy #[id number], 153, cm, 08/05/20 13:58:00 EDT, Height, 89.6, kg, 12/26/19 19:50:00EST, Dry Weight Start Date: 08/09/20 Stop Date: 08/16/20 Status: Ordered lidocaine 1.8% topical film 1 patch, Topically, Daily, leave on up to 12 hours, # 30 each, 11 Refills, Maintenance, 02/22/20 9:39:00 EDT, Film, [facility]/pharmacy #[id number], 1 patch Topically Daily,Instr:leave on [...] Refills, Maintenance, 07/01/20 16:38:00 EDT, EC Tablet, [facility]/pharmacy #[id number], 153, cm, 04/23/20 14:32:00 EDT, [...] 0 Refills, Maintenance, 06/14/20 11:30:00 EDT, Tablet, [facility]/pharmacy #[id number], 153, cm, 04/23/20 14:32:00 EDT, [...]
--- OUTSIDE RECORDS SUMMARY | 2023-08-13 20:25 | XMS_ITS | Continuity of Care Document ---
Author Name Unknown Organization [facility] Jarrett Julian lt Address [address] [place] [address]- Care Team Providers Care Frame Gate Mortiser Operator Name Role Phone Courtney QUACH, Joe Carrion Primary Care Physician [place] [facility] 09[place]23/20 [facility] Adult [address] [place] [address]- [facility] Allergies, Adverse Reactions, [...] 07/01/20 16:38:00 EDT, Route to Pharmacy Electronically, [facility]/pharmacy #[id number], 153, cm, 04/23/20 14:32:00 EDT, [...] 5 Refills, Maintenance, 05/01/20 16:21:00 EDT, Tablet, [facility]/pharmacy #[id number], 153, cm, 04/23/20 14:32:00 EDT, [...] capsule, 5 Refills, Maintenance, 08/24/20 9:47:00 EDT, [facility]/pharmacy #[id number], 153, cm, 08/14/20 14:22:00 EDT, Height, 89.6, kg, 12/26/19 19:50:00 EST, Dry Weight Start Date: 08/24/20 Status: Ordered Emgality Prefilled Pen 120 mg/mL subcutaneous solution = 120 mg, Subcutaneous Infusion, Every 28 days, # 1 each, 11 Refills, Maintenance, 07/03/20 14:17:00 EDT, [facility]/pharmacy #[id number], 1st dose broke NEEDS ANOTHER, [...] 07/21/20 23:30:00 EDT, Route to Pharmacy Electronically, [facility]/pharmacy #[id number], 153, cm, 07/09/20 13:32:00 EDT, Height, 89.6, kg,... Start Date: 07/21/20 Status: Ordered ipratropium nasal 42 mcg/inh spray 2 sprays, Nares, Both, 3 times a day, # 15 mL, 11 Refills, Maintenance, 01/09/20 10:37:00 EST, [place], [facility]/pharmacy #[id number], 2 sprays Nares, Both 3 times a day, 153, cm, 01/09/20 9:49:00 EST, Height, 89.6, kg, 12/26/19 19:50:00 EST, Dry Weight Start Date: 01/09/20 Status: Ordered KlonoPIN 0.5 mg oral tablet 1 tablet = 0.5 mg, By Mouth, 2 times a day, # 14 tablet, 0 Refills, Maintenance, 08/09/20 10:10:00 EDT, Tablet, [facility]/pharmacy #[id number], 153, cm, 08/05/20 13:58:00 EDT, Height, 89.6, kg, 12/26/19 19:50:00EST, Dry Weight Start Date: 08/09/20 Stop Date: 08/16/20 Status: Ordered lidocaine 1.8% topical film 1 patch, Topically, Daily, leave on up to 12 hours, # 30 each, 11 Refills, Maintenance, 02/22/20 9:39:00 EDT, Film, [facility]/pharmacy #[id number], 1 patch Topically Daily,Instr:leave on [...] Refills, Maintenance, 07/01/20 16:38:00 EDT, EC Tablet, [facility]/pharmacy #[id number], 153, cm, 04/23/20 14:32:00 EDT, [...]
--- OUTSIDE RECORDS SUMMARY | 2023-08-13 20:25 | XMS_ITS | Continuity of Care Document ---
Author Name Unknown Organization [facility] Julian lt Address [address] [place] [address]- Care Team Providers Care Aqua Ammonia Operator Name Role Phone Courtney QUACH, Joe Carrion Primary Care Physician [place] [facility] [place] 07/18/20 - 08/17/20 [facility] Adult [address] [place] [address]- [facility] Allergies, Adverse Reactions, Alerts Substance Reaction Severity [...] 3 Refills, Maintenance, 02/05/20 11:51:00 EDT, Solution, [facility]/pharmacy #[id number], 153, cm, 02/01/20 9:49:00 EDT, Height, 89.6, kg, 12/26/19 19:50:00 EST, Dry Weight Start Date: 02/05/20 Status: Ordered carBAMazepine 100 mg oral tablet, extended release 200 mg, 2, tablet, By Mouth, 2 times a day, # 360 tablet, Refills 1, Tot. Refills 1, Maintenance, 07/01/20 16:38:00 EDT, Route to Pharmacy Electronically, [facility]/pharmacy #[id number], 153, cm, 04/23/20 14:32:00 EDT, [...] 5 Refills, Maintenance, 05/01/20 16:21:00 EDT, Tablet, [facility]/pharmacy #[id number], 153, cm, 04/23/20 14:32:00 EDT, [...] 60 capsule, 6 Refills, Maintenance, 04/23/20 15:15:00EDT, [facility]/pharmacy #[id number], 153, cm, 04/23/20 14:32:00 EDT, Height, 89.6, kg, 12/26/19 19:50:00 EST, Dry Weight Start Date: 04/23/20 Status: Ordered Emgality Prefilled Pen 120 mg/mL subcutaneous solution = 120 mg, Subcutaneous Infusion, Every 28 days, # 1 each, 11 Refills, Maintenance, 07/03/20 14:17:00 EDT, [facility]/pharmacy #[id number], 1st dose broke NEEDS ANOTHER, [...] 07/21/20 23:30:00 EDT, Route to Pharmacy Electronically, [facility]/pharmacy #[id number], 153, cm, 07/09/20 13:32:00 EDT, Height, 89.6, kg,... Start Date: 07/21/20 Status: Ordered ipratropium nasal 42 mcg/inh spray 2 sprays, Nares, Both, 3 times a day, # 15 mL, 11 Refills, Maintenance, 01/09/20 10:37:00 EST, [place], [facility]/pharmacy #[id number], 2 sprays Nares, Both 3 times a day, 153, cm, 01/09/20 9:49:00 EST, Height, 89.6, kg, 12/26/19 19:50:00 EST, Dry Weight Start Date: 01/09/20 Status: Ordered KlonoPIN 0.5 mg oral tablet 1 tablet = 0.5 mg, By Mouth, 2 times a day, # 14 tablet, 0 Refills, Maintenance, 08/09/20 10:10:00 EDT, Tablet, [facility]/pharmacy #[id number], 153, cm, 08/05/20 13:58:00 EDT, Height, 89.6, kg, 12/26/19 19:50:00EST, Dry Weight Start Date: 08/09/20 Stop Date: 08/16/20 Status: Ordered lidocaine 1.8% topical film 1 patch, Topically, Daily, leave on up to 12 hours, # 30 each, 11 Refills, Maintenance, 02/22/20 9:39:00 EDT, Film, [facility]/pharmacy #[id number], 1 patch Topically Daily,Instr:leave on [...] 0 Refills, Maintenance, 07/08/20 16:23:00 EDT, Tablet, [facility]/pharmacy #[id number], 153, cm, 04/23/20 14:32:00 EDT, Height, 89.6, kg, 12/26/19 19:50:00 EST, Dry Weight Start Date: 07/08/20 Status: Ordered zolpidem 5 mg oral tablet 1 tablet = 5 mg, By Mouth, Daily at bedtime, PRN as needed for insomnia, needs ov for further refills, # 7 tablet, 0 Refills, Maintenance, 06/14/20 11:30:00 EDT, Tablet, [facility]/pharmacy #[id number], 153, cm, 04/23/20 14:32:00 EDT, Height, [...]
--- OUTSIDE RECORDS SUMMARY | 2023-08-13 20:25 | XMS_ITS | Continuity of Care Document ---
Author Name Unknown Organization [facility] Address [address] [place] [address]- Care Team Providers Care School Child Care Attendant Name Role Phone Anupama COREAS, Len Thomas Primary Care Physician Encounter [facility] Date(s): 06/11/21 - 07/23/21 [facility] [address] [place] [address]- Attending Physician: Len Altman NP Referring Physician: Luis QUACH, Laurence Barrios Allergies, Adverse Reactions, Alerts Substance Reaction Severity [...] 01/29/21 15:01:00 EST, Route to Pharmacy Electronically, [facility]/pharmacy #[id number], 153, cm, 01/01/21 8:33:00 EST, [...] 0 Refills, Maintenance, 05/07/21 9:18:00 EDT, Tablet, [facility]/pharmacy #[id number], Partial fill upon patient request [...] 13:59:00 EST,... Start Date: 05/14/21 Status: Ordered [facility] VITAMIN D3 25 MCG SOFTGEL TAKE [...] Refills, Maintenance, 12/10/20 17:49:00 EST, [facility], 153, cm, 12/10/20 15:22:00 EST, Height, 79.6, [...] Refills, Maintenance, 06/07/21 14:13:00 EDT, [facility], 153, cm, 05/14/21 12:43:00 EDT, Height, 79.6, [...] 07/21/20 23:30:00 EDT, Route to Pharmacy Electronically, [facility]/pharmacy #[id number], 153, cm, 07/09/20 13:32:00 EDT, Height, 89.6, kg,... Start Date: 07/21/20 Status: Ordered ipratropium nasal 42 mcg/inh spray 2 sprays, Nares, Both, 3 times a day, # 15 mL, 11 Refills, Maintenance, 01/09/20 10:37:00 EST, [place], [facility]/pharmacy #[id number], 2 sprays Nares, Both 3 times a day, 153, cm, 01/09/20 9:49:00 EST, Height, 89.6, kg, 12/26/19 19:50:00 EST, Dry Weight Start Date: 01/09/20 Status: Ordered ketoconazole 2% topical shampoo 1 application, Topically, Once, # 120 mL, 1 Refills, Soft Stop, 05/07/21 8:34:00 EDT, Shampoo, [facility]/pharmacy #[id number], 1 application Topically Once, 153, cm, 05/07/21 7:55:00 EDT, Height, 79.6, kg, 12/30/20 13:59:00 EST, Dry Weight Start Date: 05/07/21 Status: Ordered KlonoPIN 0.5 mg oral tablet 1 tablet = 0.5 mg, By Mouth, 2 times a day, # 60 tablet, 0 Refills, Maintenance, 07/01/21 15:21:00 EDT, Tablet, [facility]/pharmacy #[id number], 153, cm, 06/23/21 9:40:00 EDT, Height, 79.6, kg, 12/30/20 13:59:00 EST, Dry Weight Start Date: 07/01/21 Status: Ordered lidocaine 1.8% topical film 1 patch, Topically, Daily, leave on up to 12 hours, # 30 each, 11 Refills, Maintenance, 02/22/20 9:39:00 EDT, Film, [facility]/pharmacy #[id number], 1 patch Topically Daily,Instr:leave on up to 12 hours, 153, cm,02/01/20 9:49:00 EDT, Height, 89.6, kg, 12/26/19 19... Start Date: 02/22/20 Status: Ordered Linzess 290 mcg oral capsule TAKE 1 CAPSULE BY MOUTH EVERY DAY Start Date: 05/07/21 Status: Ordered [place] 0.65% nasal spray 2 sprays, Nares, Both, 4 times a day, # 1 each, 0 Refills, Maintenance, 06/23/21 9:54:00 EDT, [facility]/pharmacy #[id number], Partial fill upon patient request if the prescription is for a schedule II opioid drug., 2 sprays Nares, Both 4 times a day, 153, cm, ... Start Date: 06/23/21 Status: Ordered omeprazole 20 mg oral delayed release tablet 1 tablet = 20 mg, By Mouth, Daily, # 90 tablet, 0 Refills, Maintenance, 09/29/20 16:38:00 EST, EC Tablet, [facility]/pharmacy #[id number], 153, cm, 08/28/20 15:44:00 EDT, Height, 89.6, kg, 12/26/19 19:50:00 EST, Dry Weight Start Date: 09/29/20 Stop Date: 12/28/20 Status: Ordered ondansetron 4 mg oral tablet 1 tablet = 4 mg, By Mouth, Every 8 hours, PRN as needed for nausea/vomiting, # 15 tablet, 0 Refills, Maintenance, 11/24/20 14:17:00 EST, Tablet, [facility], Partial fill upon [...] Unknown, 1 Refills, Maintenance, 06/30/21 18:41:00 EDT, [facility]/pharmacy #[id number], 90, INJECT 1MG INTO THE SKIN WEEKLY, 153, cm, 06/23/21 9:40:00 EDT, Height, 79.6, kg, 12/30/20 13:59:00 EST, Dry Weight Start Date: 06/30/21 Status: Ordered Paragard IUD Maintenance, 05/05/19 10:52:19 EDT, Compound Start Date: 05/05/19 Status: Ordered PEG-3350 with Electrolytes (Eqv-NuLYTELY) oral powder for reconstitution See Instructions, as directed, # 1 each, 0 Refills, Maintenance, 12/26/20 14:56:00 EST, [facility], Ok to substitute for ANY gallon prep, as directed, 153, cm, 12/11/20 16:00:00 EST, Height, 79.6, kg, 11/21/20 21:34:00 EST, Dry Weight Start Date: 12/26/20 Status: Ordered plecanatide 3 mg oral tablet 1 tablet = 3 mg, By Mouth, Daily, # 30 tablet, 0 Refills, Maintenance, 02/14/21 11:40:00 EDT, [facility]/pharmacy #[id number], Partial fill upon patient request [...] M79.7HEIGHT- 5' WEIGHT- 175LBS LIFETIME NEED FAX: [phone], 02/03/21 14:22:00 EDT, Supply Start Date: 02/03/21 [...] 1 Refills, Maintenance, 03/03/21 18:31:00 EDT, [facility], [facility], cm, 02/28/21 11:14:00 EDT, Height, 79.6, [...]
--- OUTSIDE RECORDS SUMMARY | 2023-08-13 20:25 | XMS_ITS | Continuity of Care Document ---
Author Name Unknown Organization [facility] ter Address [address] [place] [id number]- Care Team Providers Care Drum Builder Name Role Phone Courtney QUACH, Joe Carrion Primary Care Physician Encounter [facility] [place] Date(s): 11/21/20 - 11/24/[address] [address]- Discharge Disposition: A-D/C Home Attending Physician: Mitch GUILLEN MD, Kev Mayo Admitting Physician: Mitch GUILLEN MD, Adin T Referring Physician: Not on Staff, Referring MD [...] vaccine 03/19/19 Not Given Patient Refuses Medications Acetaminophen Tablet 650 mg, Tablet, By Mouth, 11/24/20 9:00:00 EST Start Date: 11/24/20 Stop Date: 11/24/20 Status: Completed acetaminophen/butalbital/caffeine 300 mg-50 mg-40 mg oral capsule [...] 3 Refills, Maintenance, 02/05/20 11:51:00 EDT, Solution, [facility]/pharmacy #[id number], 153, cm, 02/01/20 9:49:00 EDT, Height, 89.6, kg, 12/26/19 19:50:00 EST, Dry Weight Start Date: 02/05/20 Status: Ordered carBAMazepine 100 mg oral tablet, extended release 200 mg, 2, tablet, By Mouth, 2 times a day, # 360 tablet, Refills 1, Tot. Refills 1, Maintenance, 07/01/20 16:38:00 EDT, Route to Pharmacy Electronically, [facility]/pharmacy #[id number], 153, cm, 04/23/20 [...] EDT, Compound Start Date: 09/09/20 Status: Ordered Dilaudid Inj 0.5 mg, Injection, IV Push Slowly, Every 3 hours, PRN for Pain , Severe, Routine, 11/23/20 8:48:00 EST Start Date: 11/23/20 Stop Date: 11/25/20 Status: Discontinued docusate sodium 100 mg oral tablet 1 tablet = 100 mg, By Mouth, 2 times a day, PRN for constipation, # 60 tablet, 5 Refills, Maintenance, 11/24/20 8:47:00 EST, Tablet, [facility], 153, cm, 11/23/20 20:48:00 EST, Height, 79.6, kg, 11/21/20 21:34:00 EST, Dry Weight Start Date: 11/24/20 Status: Ordered Dulera 200 mcg-5 mcg/inh inhalation aerosol 2 puffs, Inhalation, 2 times a day, Soumya Leonid, # 13 Gm, 3 Refills, Maintenance, 09/19/19 13:54:11 EDT, Aerosol, 2 puffs Inhalation 2 times a day,Instr:Soumya Jaquez Start Date: 09/19/19 Status: Ordered duloxetine 60 mg oral enteric coated capsule 1 capsule = 60 mg, By Mouth, 2 times a day, # 60 capsule, 5 Refills, Maintenance, 08/24/20 9:47:00 EDT, [facility]/pharmacy #[id number], 153, cm, 08/14/20 14:22:00 EDT, Height, 89.6, kg, 12/26/19 19:50:00 EST, Dry Weight Start Date: 08/24/20 Status: Ordered Emgality Prefilled Pen 120 mg/mL subcutaneous solution = 120 mg, Subcutaneous Infusion, Every 28 days, # 1 each, 11 Refills, Maintenance, 07/03/20 14:17:00 EDT, [facility]/pharmacy #[id number], 1st dose broke NEEDS [...] Strips See Instructions, # 100 each, Refills 1, Tot. Refills 1, Maintenance, DX DM 2 E11.9 TEST 3 TIMES A DAY, 11/08/20 13:33:00 EST, Compound, 153, cm, 08/28/20 15:44:00 EDT, Height, 89.6, kg, 12/26/19 19:50:00 EST, Dry Weight Start Date: 11/08/20 Status: Ordered Espinoza lift Espinoza lift, See [...] 07/21/20 23:30:00 EDT, Route to Pharmacy Electronically, [facility]/pharmacy #[id number], 153, cm, 07/09/20 13:32:00 EDT, Height, 89.6, kg,... Start Date: 07/21/20 Status: Ordered ipratropium nasal 42 mcg/inh spray 2 sprays, Nares, Both, 3 times a day, # 15 mL, 11 Refills, Maintenance, 01/09/20 10:37:00 EST, [place], [id number], 2 sprays Nares, Both 3 times a day, 153, cm, 01/09/20 9:49:00 EST, Height, 89.6, kg, 12/26/19 19:50:00 EST, Dry Weight Start Date: 01/09/20 Status: Ordered KlonoPIN 0.5 mg oral tablet 1 tablet = 0.5 mg, By Mouth, 2 times a day, # 14 tablet, 0 Refills, Maintenance, 11/08/20 13:53:00 EST, Tablet, [facility]/pharmacy #[id number], 153, cm, 08/28/20 15:44:00 EDT, Height, 89.6, kg, 12/26/19 19:50:00EST, Dry Weight Start Date: 11/08/20 Stop Date: 11/15/20 Status: Ordered lidocaine 1.8% topical film 1 [...] Daily, # 30 capsule, 0 Refills, Maintenance, 11/05/20 10:00:00 EST, [facility]/pharmacy #[id number], 153, cm, 08/28/20 15:44:00 EDT, Height, 89.6, kg, 12/26/19 19:50:00 EST, Dry Weight Start Date: 11/05/20 Status: Ordered metFORMIN 1000 mg oral tablet 1 tablet = 1,000 mg, By Mouth, 2 times a day, new fdose Soumya Jaquez, # 180 tablet, 1 Refills, Maintenance, 10/06/20 13:46:00 EST, Tablet, [id number], 153, cm, 08/28/20 15:44:00 EDT, Height, [...] 0 Refills, Maintenance, 11/24/20 14:17:00 EST, Tablet, [facility], Partial fill upon patient request if the prescription is for a schedule II opioi... Start Date: 11/24/20 Stop Date: 11/29/20 Status: Ordered oxyCODONE 5 mg oral capsule 1 capsule = 5 mg, By Mouth, Every 6 hours, PRN for pain, # 8 capsule, 0 Refills, Acute 11/28/20 9:00:00 EST, 11/24/20 8:46:00 EST, Capsule, [facility], Partial fill upon patient requestif the prescription is for a schedule II opioid adrianna... Start Date: 11/24/20 Stop Date: 11/28/20 Status: Ordered OxyCODONE 5mg/5mL Liquid 5 mg, Solution, By Mouth, Every 4 hours, PRN for Pain , Severe, Routine, 11/23/20 10:29:00 EST Start Date: 11/23/20 Stop Date: 11/24/20 Status: Discontinued Ozempic (1 mg dose) 2 mg/1.5 mL subcutaneous solution = 1 mg, Subcutaneous Injection, Every week, # 3 mL, 11 Refills, Maintenance, 06/04/20 17:34:00 EDT,Solution, [facility]/pharmacy #[id number], 153, cm, 04/23/20 [...] insomnia, # 30 tablet, 0 Refills, Maintenance, 11/08/20 13:53:00 EST, Tablet, [id number], 153, cm, 08/28/20 15:44:00 EDT, Height, 89.6, kg, 12/26/19 19:50:00 EST, Dry Weight Start Date: 11/08/20 Status: Ordered Problem List Condition Effective Dates [...] ecc, bx x 2 3referred for colpo Results Radiology Reports * Exam Date Time Procedure Performing Provider Status 11/21/20 9:38 AM Chest Portable Dimitry , Lesa; Auth ( Verified) Notes: (Chest Portable) Reason For Exam: Shortness of Breath RESULT: Chest Portable Chest Portable Reason: Shortness of Breath; Clinical Question(s): CHF COMPARISON: Chest CT dated October 13, 2017 and radiographs of the chest and abdomen dated 2011. FINDINGS: LINES AND TUBES: None. LUNGS AND PLEURA: Diffusely increased opacification of the left lung is most likely due to leftward rotation and overlying soft tissue attenuation. Background pulmonary vascularity appears to be within normal limits and there is no consolidation, effusion, or pneumothorax. HEART, MEDIASTINUM AND ADRIANA: Heart is normal in size. Normal upper mediastinal and hilar contour. BONES AND SOFT TISSUES: No acute abnormality. IMPRESSION: Rotated examination without evidence of acute cardiopulmonary process. WSN: [id number] Ordering Physician: Serena De Dictated By: Chano Mujica MD Dictated Date/Time: 11/21/20 9:45 am Reviewed By: Chano Mujica MD Signed By: Chano Mujica MD Signed Date/Time: 11/21/20 9:45 am Transcribed By: SAROJ Transcribed Date/Time: 11/21/20 9:39 am Vital Signs Most recent to oldest [Reference Range]: 1 2 3 Height 153 cm (11/23/20 8:48 PM) 153 cm (11/23/20 3:05 PM) 153 cm (11/22/20 4:27 AM) Weight 79.6 kg (11/23/20 3:05 PM) 79.6 kg (11/21/20 9:34 PM) Oxygen Saturation [94-100 %] 100 % (11/24/20 12:00 PM) 96 % (11/24/20 8:00 AM) 98 % (11/24/20 4:12 AM) Pulse Rate [55-90 bpm] 106 bpm *H* (11/24/20 12:00 PM) 92 bpm *H* (11/24/20 8:00 AM) 90 bpm (11/24/20 4:12 AM) Body Mass Index [18.5-24.99] 34 *>HHI* (11/23/20 3:05 PM) 34 *>HHI* (11/21/20 9:34 PM) Blood Pressure [90-138/55-84 mm Hg] 127/72mm Hg (11/24/20 12:00 PM) 130/73mm Hg (11/24/20 8:00 AM) 143/95mm Hg *H* (11/24/20 4:12 AM) Respiratory Rate [16-30 br/min] 18 br/min (11/24/20 12:00 PM) 18 br/min (11/24/20 9:28 AM) 18 br/min (11/24/20 8:27 AM) Temperature [96.8-100.4 DegF] 97.4 DegF (11/24/20 12:00 PM) 97.4 DegF (11/24/20 8:00 AM) 97.7 DegF (11/24/20 4:12 AM) Liters per Minute 2 L/min (11/23/20 11:34 PM) 2 L/min (11/23/20 8:48 PM) 2 L/min (11/23/20 8:00 PM) Mode of Delivery (Oxygen) Room air (11/24/20 12:00 PM) Room air (11/24/20 8:00 AM) Room air (11/24/20 4:12 AM) Blood pressure sites Arm, left (11/24/20 12:00 PM) Arm, left (11/24/20 8:00 AM) Arm, left (11/24/20 4:12 AM) Temperature Route Oral (11/24/20 12:00 PM) Oral (11/24/20 8:00 AM) Oral (11/24/20 4:12 AM) Dry Weight 79.6 kg (11/21/20 9:34 PM) Weight Obtained Via Bed scale (11/21/20 9:34 PM) Dry Weight Obtained Via Bed scale (11/21/20 9:34 PM) Social History Social History Type Response Smoking Status Never smoker; Type: Cigarettes entered on: 06/28/18 Sex
--- OUTSIDE RECORDS SUMMARY | 2023-08-13 20:25 | XMS_ITS | Continuity of Care Document ---
Author Name Unknown Organization [facility] lt Address [address] [place] [address]- Care Team Providers Care Supervisor Production Managing Name Role Phone Courtney QUACH, Joe Carrion Primary Care Physician [phone] Encounter [facility] [place] ACCT R [id number] Date(s): 12/12/20 - 01/26/21 [facility] Adult [address] [place] [address]- Attending Physician: Joe Valdez MD Allergies, Adverse Reactions, Alerts Substance Reaction Severity Status doxycycline Active penicillin 1 Active Lyrica Active gabapentin Active Bactrim Active Nuts Anaphylactic [...] 3 Refills, Maintenance, 02/05/20 11:51:00 EDT, Solution, [facility]/pharmacy #[id number], 153, cm, 02/01/20 9:49:00 EDT, Height, 89.6, kg, 12/26/19 19:50:00 EST, Dry Weight Start Date: 02/05/20 Status: Ordered carBAMazepine 100 mg oral tablet, extended release 200 mg, 2, tablet, By Mouth, 2 times a day, # 360 tablet, Refills 1, Tot. Refills 1, Maintenance, 07/01/20 16:38:00 EDT, Route to Pharmacy Electronically, [facility]/pharmacy #[id number], 153, cm, 04/23/20 [...] Refills, Maintenance, 12/10/20 17:49:00 EST, [id number], 153, cm, 12/10/20 15:22:00 EST, Height, 79.6, kg, 11/21/20 21:34:00 EST, Dry Weight Start Date: 12/10/20 Status: Ordered Dulera 200 mcg-5 mcg/inh inhalation aerosol 2 puffs, Inhalation, 2 times a day, Soumya Jaquez, # 13 Gm, 3 Refills, Maintenance, 09/19/19 13:54:11 EDT, Aerosol, 2 puffs Inhalation 2 times a day,Instr:Soumyamarcos Jaquez Start Date: 09/19/19 Status: Ordered duloxetine [...] 07/21/20 23:30:00 EDT, Route to Pharmacy Electronically, [facility]/pharmacy #[id number], 153, cm, 07/09/20 13:32:00 EDT, Height, 89.6, kg,... Start Date: 07/21/20 Status: Ordered ipratropium nasal 42 mcg/inh spray 2 sprays, Nares, Both, 3 times a day, # 15 mL, 11 Refills, Maintenance, 01/09/20 10:37:00 EST, [place], [facility]/pharmacy #[id number], 2 sprays Nares, Both 3 times a day, 153, cm, 01/09/20 9:49:00 EST, Height, 89.6, kg, 12/26/19 19:50:00 EST, Dry Weight Start Date: 01/09/20 Status: Ordered KlonoPIN 0.5 mg oral tablet 1 tablet = 0.5 mg, By Mouth, 2 times a day, # 60 tablet, 0 Refills, Maintenance, 12/26/20 12:54:00 EST, Tablet, [facility]/pharmacy #[id number], 153, cm, 12/11/20 16:00:00 EST, Height, 79.6, kg, 11/21/20 21:34:00EST, Dry Weight Start Date: 12/26/20 Status: Ordered lidocaine 1.8% topical film 1 patch, Topically, Daily, leave on up to 12 hours, # 30 each, 11 Refills, Maintenance, 02/22/20 9:39:00 EDT, Film, [facility]/pharmacy #[id number], 1 patch Topically Daily,Instr:leave on up to 12 hours, 153, cm,02/01/20 9:49:00 EDT, Height, 89.6, kg, 12/26/19 19... Start Date: 02/22/20 Status: Ordered Linzess 290 mcg oral capsule 1 capsule, By Mouth, Daily, # 30 capsule, 0 Refills, Maintenance, 01/06/21 15:57:00 EST, [facility]/pharmacy #[id number], 153, cm, 01/01/21 8:33:00 EST, Height, 79.6, kg, 12/30/20 13:59:00 EST, Dry Weight Start Date: 01/06/21 Status: Ordered metFORMIN 1000 mg oral tablet 1 tablet = 1,000 mg, By Mouth, 2 times a day, new fdose Soumya Jaquez, # 180 tablet, 1 Refills, Maintenance, 10/06/20 13:46:00 EST, Tablet, [facility]/pharmacy #[id number], 153, cm, 08/28/20 15:44:00 EDT, Height, 89.6, kg, 12/26/19 19:50:00 EST, Dry Weight Start Date: 10/06/20 Status: Ordered omeprazole 20 mg oral delayed release tablet 1 tablet = 20 mg, By Mouth, Daily, # 90 tablet, 0 Refills, Maintenance, 09/29/20 16:38:00 EST, EC Tablet, [facility]/pharmacy #[id number], 153, cm, 08/28/20 15:44:00 EDT, Height, 89.6, kg, 12/26/19 19:50:00 EST, Dry Weight Start Date: 09/29/20 Stop Date: 12/28/20 Status: Ordered ondansetron 4 mg oral tablet 1 tablet = 4 mg, By Mouth, Every 8 hours, PRN as needed for nausea/vomiting, # 15 tablet, 0 Refills, Maintenance, 11/24/20 14:17:00 EST, Tablet, [facility], Partial fill upon patient request if the prescription is for a schedule II opioi... Start Date: 11/24/20 Stop Date: 11/29/20 Status: Ordered Ozempic (1 mg dose) 2 mg/1.5 mL subcutaneous solution = 1 mg, Subcutaneous Injection, Every week, # 3 mL, 11 Refills, Maintenance, 06/04/20 17:34:00 EDT,Solution, [facility]/pharmacy #[id number], 153, cm, 04/23/20 14:32:00 EDT, Height, 89.6, kg, 12/26/19 19:50:00 EST, Dry Weight Start Date: 06/04/20 Status: Ordered Paragard IUD Maintenance, 05/05/19 10:52:19 EDT, Compound Start Date: 05/05/19 Status: Ordered PEG-3350 with Electrolytes (Eqv-NuLYTELY) oral powder for reconstitution See Instructions, as directed, # 1 each, 0 Refills, Maintenance, 12/26/20 14:56:00 EST, [id number], Ok to substitute for ANY [...]
--- OUTSIDE RECORDS SUMMARY | 2023-08-13 20:25 | XMS_ITS | Continuity of Care Document ---
Author Name Unknown Organization [facility] lt Address [address] [place] [address]- Care Team Providers Care Sales Warehouse Driver Name Role Phone Joe Valdez MD Primary Care Physician Encounter [facility] [place] Date(s): 06/26/20 - 07/26/20 [facility] Adult [address] [place] [address]- [facility] Attending Physician: Joe Valdez MD Allergies, Adverse [...] 3 Refills, Maintenance, 02/05/20 11:51:00 EDT, Solution, [facility]/pharmacy #[id number], 153, cm, 02/01/20 9:49:00 EDT, Height, 89.6, kg, 12/26/19 19:50:00 EST, Dry Weight Start Date: 02/05/20 Status: Ordered carBAMazepine 100 mg oral tablet, extended release 200 mg, 2, tablet, By Mouth, 2 times a day, # 360 tablet, Refills 1, Tot. Refills 1, Maintenance, 07/01/20 16:38:00 EDT, Route to Pharmacy Electronically, [facility]/pharmacy #[id number], 153, cm, 04/23/20 [...] 5 Refills, Maintenance, 05/01/20 16:21:00 EDT, Tablet, [facility]/pharmacy #[id number], 153, cm, 04/23/20 [...] 60 capsule, 6 Refills, Maintenance, 04/23/20 15:15:00EDT, [facility]/pharmacy #[id number], 153, cm, 04/23/20 14:32:00 EDT, Height, 89.6, kg, 12/26/19 19:50:00 EST, Dry Weight Start Date: 04/23/20 Status: Ordered Emgality Prefilled Pen 120 mg/mL subcutaneous solution = 120 mg, Subcutaneous Infusion, Every 28 days, # 1 each, 11 Refills, Maintenance, 07/03/20 14:17:00 EDT, [facility]/pharmacy #[id number], 1st dose broke [...] 07/21/20 23:30:00 EDT, Route to Pharmacy Electronically, [facility]/pharmacy #[id number], 153, cm, 07/09/20 13:32:00 EDT, Height, 89.6, kg,... Start Date: 07/21/20 Status: Ordered ipratropium nasal 42 mcg/inh spray 2 sprays, Nares, Both, 3 times a day, # 15 mL, 11 Refills, Maintenance, 01/09/20 10:37:00 EST, [place], [facility]/pharmacy #[id number], 2 sprays Nares, Both 3 times a day, 153, cm, 01/09/20 9:49:00 EST, Height, 89.6, kg, 12/26/19 19:50:00 EST, Dry Weight Start Date: 01/09/20 Status: Ordered KlonoPIN 0.5 mg oral tablet 1 tablet = 0.5 mg, By Mouth, 2 times a day, # 14 tablet, 0 Refills, Maintenance, 07/18/20 17:06:00 EDT, Tablet, [facility]/pharmacy #[id number], 153, cm, 07/09/20 13:32:00 EDT, Height, 89.6, kg, 12/26/19 19:50:00EST, Dry Weight Start Date: 07/18/20 Stop Date: 07/25/20 Status: Ordered lidocaine 1.8% topical film 1 patch, Topically, Daily, leave on up to 12 hours, # 30 each, 11 Refills, Maintenance, 02/22/20 9:39:00 EDT, Film, [facility]/pharmacy #[id number], 1 patch Topically [...]
--- OUTSIDE RECORDS SUMMARY | 2023-08-13 20:25 | XMS_ITS | Continuity of Care Document ---
Author Name Unknown Organization [facility] lt Address [address] [place] [address]- Care Team Providers Care Integrated Logistics Operations Manager Name Role Phone Courtney QUACH, Joe Carrion Primary Care Physician [phone] [place] [facility] 06/04[place]20 - 07/04/20 [facility] Adult [address] [place] [address]- [facility] Allergies, Adverse Reactions, Alerts Substance Reaction [...] 07/01/20 16:38:00 EDT, Route to Pharmacy Electronically, [facility]/pharmacy #[id number], 153, cm, 04/23/20 14:32:00 EDT, [...] 5 Refills, Maintenance, 05/01/20 16:21:00 EDT, Tablet, [facility]/pharmacy #[id number], 153, cm, 04/23/20 14:32:00 EDT, [...] 60 capsule, 6 Refills, Maintenance, 04/23/20 15:15:00EDT, [facility]/pharmacy #[id number], 153, cm, 04/23/20 14:32:00 EDT, Height, 89.6, kg, 12/26/19 19:50:00 EST, Dry Weight Start Date: 04/23/20 Status: Ordered Emgality Prefilled Pen 120 mg/mL subcutaneous solution = 120 mg, Subcutaneous Infusion, Every 28 days, # 1 each, 11 Refills, Maintenance, 07/03/20 14:17:00 EDT, [facility]/pharmacy #[id number], 1st dose broke NEEDS ANOTHER, [...] 06/25/20 17:13:00 EDT, Route to Pharmacy Electronically, [facility]/pharmacy #[id number], 153, cm, 04/23/20 14:32:00 EDT, Height, 89.6, kg,... Start Date: 06/25/20 Status: Ordered ipratropium nasal 42 mcg/inh spray 2 sprays, Nares, Both, 3 times a day, # 15 mL, 11 Refills, Maintenance, 01/09/20 10:37:00 EST, [place], [facility]/pharmacy #[id number], 2 sprays Nares, Both 3 times a day, 153, cm, 01/09/20 9:49:00 EST, Height, 89.6, kg, 12/26/19 19:50:00 EST, Dry Weight Start Date: 01/09/20 Status: Ordered KlonoPIN 0.5 mg oral tablet 1 tablet = 0.5 mg, By Mouth, 2 times a day, # 14 tablet, 0 Refills, Maintenance, 04/17/20 12:00:00 EDT, Tablet, [facility]/pharmacy #[id number], 153, cm, 02/01/20 9:49:00 EDT, Height, 89.6, kg, 12/26/19 19:50:00 EST, Dry Weight Start Date: 04/17/20 Stop Date: 04/24/20 Status: Ordered lidocaine 1.8% topical film 1 patch, Topically, Daily, leave on up to 12 hours, # 30 each, 11 Refills, Maintenance, 02/22/20 9:39:00 EDT, Film, [facility]/pharmacy #[id number], 1 patch Topically Daily,Instr:leave on up to 12 hours, 153, cm,02/01/20 9:49:00 EDT, Height, 89.6, kg, 12/26/19 19... Start Date: 02/22/20 Status: Ordered Linzess 290 mcg oral capsule 1 capsule, By Mouth, Daily, # 30 capsule, 0 Refills, Maintenance, 06/25/20 17:13:00 EDT, [facility]/pharmacy #[id number], 153, cm, 04/23/20 14:32:00 EDT, [...] Refills, Maintenance, 07/01/20 16:38:00 EDT, EC Tablet, [facility]/pharmacy #[id number], 153, cm, 04/23/20 14:32:00 EDT, [...] 1 Refills, Maintenance, 06/04/20 7:22:00 EDT, Tablet, [facility]/pharmacy #[id number], 153, cm, 04/23/20 14:32:00 EDT, Height, 89.6, kg, 12/26/19 19:50:00 EST, Dry Weight Start Date: 06/04/20 Status: Ordered zolpidem 5 mg oral tablet 1 tablet = 5 mg, By Mouth, Daily at bedtime, PRN as needed for insomnia, needs ov for further refills, # 7 tablet, 0 Refills, Maintenance, 06/14/20 11:30:00 EDT, Tablet, [facility]/pharmacy #[id number], 153, cm, 04/23/20 14:32:00 EDT, [...]
--- OUTSIDE RECORDS SUMMARY | 2023-08-13 20:25 | XMS_ITS | Continuity of Care Document ---
Author Name Unknown Organization [facility] Adult Address [address] [place] [address]- Care Team Providers Care Trim Technician Name Role Phone Andrew COREAS, Loreta Diaz Primary Care Physician Encounter [facility] [place] Date(s): 01/18/23 - 02/17/23 [facility] Adult [address] [place] [address]- Allergies, Adverse Reactions, Alerts Substance Reaction Severity [...] mL, 0 Refills, Maintenance, 08/31/21 20:13:00 EDT, [facility]/pharmacy #[id number], 153, cm, 08/21/21 11:10:00 EDT, [...] 10/03/21 15:12:00 EST, Route to Pharmacy Electronically, [facility]/pharmacy #[id number], 153, cm, 10/02/21 11:33:00 EST, Height, [...] capsule, 5 Refills, Maintenance, 12/10/20 17:49:00 EST, [facility] STORE [id number], 153, cm, 12/10/20 15:22:00 EST, Height, 79.6, kg, 11/21/20 21:34:00 EST, Dry Weight Start Date: 12/10/20 Status: Ordered Dulera 200 mcg-5 mcg/inh inhalation aerosol 2 puffs, Inhalation, 2 times a day, # 13 Gm, 3 Refills, Maintenance, 10/03/21 15:21:00 EST, Aerosol, [facility]/pharmacy #[id number], 2 puffs Inhalation 2 times a day, 153, cm, 10/02/21 11:33:00 EST, Height, 80, kg, 09/02/21 13:29:00 EDT, Dry Weight Start Date: 10/03/21 Status: Ordered duloxetine 60 mg oral enteric coated capsule 1 capsule, By Mouth, 2 times a day, # 180 capsule, 1 Refills, Maintenance, 10/03/21 15:20:00 EST, [facility]/pharmacy #[id number], 153, cm, 10/02/21 11:33:00 EST, Height, 80, kg, 09/02/21 13:29:00 EDT, Dry Weight Start Date: 10/03/21 Status: Ordered Emgality Prefilled Pen 120 mg/mL subcutaneous solution = 120 mg, Subcutaneous Infusion, Every 28 days, # 1 each, 1 Refills, Maintenance, 10/03/21 15:21:00EST, [facility]/pharmacy #[id number], 153, cm, 10/02/21 11:33:00 EST, Height, 80, kg, 09/02/21 13:29:00 EDT, DryWeight Start Date: 10/03/21 Status: Ordered EpiPen 2-Freeman 0.3 mg injectable kit See Instructions, Intramuscular Once, # 2 cartridge, 0 Refills, Soft Stop, 05/11/19 15:39:44 EDT Start Date: 05/11/19 Status: Ordered Flonase 50 mcg/inh nasal spray 2 sprays, Nares, Both, Daily, # 16 Gm, 2 Refills, Maintenance, 10/03/21 15:17:00 EST, Nasal [place], [facility]/pharmacy #[id number], Partial fill upon patient [...] 09/03/21 13:19:00 EDT, Route to Pharmacy Electronically, [facility]/pharmacy #[id number], 153, cm, 09/02/21 13:58:00 EDT, Height, 80, kg, 1... Start Date: 09/03/21 Status: Ordered ipratropium nasal 42 mcg/inh spray 2 sprays, Nares, Both, 3 times a day, # 15 mL, 11 Refills, Maintenance, 10/03/21 15:19:00 EST, [place], [facility]/pharmacy #[id number], 2 sprays Nares, Both 3 times a day, 153, cm, 10/02/21 11:33:00 EST, Height, 80, kg, 09/02/21 13:29:00 EDT, Dry Weight Start Date: 10/03/21 Status: Ordered ketoconazole 2% topical shampoo 1 application, Topically, Once, # 120 mL, 1 Refills, Soft Stop, 05/07/21 8:34:00 EDT, Shampoo, [facility]/pharmacy #[id number], 1 application Topically Once, [...] 0 Refills, Maintenance, 10/03/21 15:14:00 EST, Capsule, [facility]/pharmacy #[id number], Partial fill upon patient request ifthe [...] EST, Supply Start Date: 10/03/21 Status: Ordered [place] 0.65% nasal spray 2 sprays, Nares, Both, [...] Unknown, 1 Refills, Maintenance, 10/03/21 15:21:00 EST, [facility]/pharmacy #[id number], 90, INJECT 1MG INTO [...] tablet, 0 Refills, Maintenance, 12/25/22 17:47:00 EST, [facility]/pharmacy #[id number], Pa... Start Date: 12/25/22 Status: Ordered PEG-3350 with Electrolytes (Eqv-NuLYTELY) oral powder for reconstitution See Instructions, as directed, # 1 each, 0 Refills, Maintenance, 12/26/20 14:56:00 EST, 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 Hidradenitis suppurativa Confirmed Active [...] Team Personnel Name: Kathy Mendoza RN Position: [facility]O RN Member Role: Primary Care Nurse Name: Nevin Smith NP Position: [facility] Associate Professional Member Role: Primary Care Nurse Address: Address: [address] [place] [address] [place] [address]- [place] Name: Bradly Bucio Position: [facility] RN Member Role: Primary Care Nurse Name: Elana Silver RN Position: [facility] RN Member Role: Primary Care Nurse Name: Adriana Lamar RN Position: [facility] RN Member Role: Primary Care Nurse Name: Lory Gillis RN Position: [facility] RN Member Role: Primary Care Nurse Name: Levy Buenrostro RN Position: [facility] RN Member Role: Primary Care Nurse Name: Isabela Quiroz RN Position: [facility] Outreach Member Role: Primary Care Nurse Name: Keyanna Michaels RN Position: [facility] RN Member Role: Primary Care Nurse Name: Loreta Morales NP Position: [facility] Associate Professional Member Role: PCP Address: Address: [address] [place] [id number]- [place] Care Team Related Persons Name: JESSICA LAUREN Address: home [address] [place] [address] Name: LAUREN ALDANA Address: home [address] [place] [address]
--- OUTSIDE RECORDS SUMMARY | 2023-08-13 20:25 | XMS_ITS | Continuity of Care Document ---
Author Name Unknown Organization [facility] ter Address [address] [place] [id number]- Care Team Providers Care Cartography Technician Name Role Phone Suha COREAS, Karin Kelsey Primary Care Physicia n Unavailable Encounter [facility] [place] Date(s): 02/12/22 - 04/04/[address] [id number] Attending Physician: Karin Borden NP Admitting Physician: Suha COREAS, Karin Kelsey Referring Physician: Suha COREAS, Karin Kelsey Allergies, Adverse Reactions, Alerts Substance Reaction Severity Status doxycycline Active Bactrim Active Lyrica Active penicillin 1 Active gabapentin Active Nuts [...] Refills, Maintenance, 08/31/21 20:13:00 EDT, [facility]/pharmacy #[id number], 153, cm, 08/21/21 11:10:00 [...] EST, Route to Pharmacy Electronically, [facility]/pharmacy #[id number], 153, cm, 10/02/21 11:33:00 [...] 0 Refills, Maintenance, 05/07/21 9:18:00 EDT, Tablet, [facility]/pharmacy #[id number], Partial fill upon patient request if the [...] Start Date: 05/14/21 Status: Ordered [facility] VITAMIN D3 25 MCG SOFTGEL [...] WEIGHT- 175LBS LIFETIME NEED dx n39.46 Soumya Jaqeuz, 10/03/21 17:44:00 EST, Soumya Quinone... Start Date: 10/03/21 Status: Ordered docusate sodium 100 mg oral capsule 1 capsule, By Mouth, 2 times a day, PRN NEEDED FOR CONSTIPATION, # 60 capsule, 5 Refills, Maintenance, 12/10/20 17:49:00 EST, [id number], 153, cm, 12/10/20 15:22:00 EST, Height, 79.6, [...] 2 Refills, Maintenance, 10/03/21 15:17:00 EST, Nasal [place], [id number], Partial fill upon patient request [...] EDT, Route to Pharmacy Electronically, [facility]/pharmacy #[id number], 153, cm, 09/02/21 13:58:00 EDT, Height, 80, kg, 1... Start Date: 09/03/21 Status: Ordered ipratropium nasal 42 mcg/inh spray 2 sprays, Nares, Both, 3 times a day, # 15 mL, 11 Refills, Maintenance, 10/03/21 15:19:00 EST, [place], [facility]/pharmacy #[id number], 2 sprays Nares, Both 3 times a day, 153, cm, 10/02/21 11:33:00 EST, Height, 80, kg, 09/02/21 13:29:00 EDT, Dry Weight Start Date: 10/03/21 Status: Ordered ketoconazole 2% topical shampoo 1 application, Topically, Once, # 120 mL, 1 Refills, Soft Stop, 05/07/21 8:34:00 EDT, Shampoo, [facility]/pharmacy #[id number], 1 application Topically Once, 153, cm, 05/07/21 7:55:00 EDT, Height, 79.6, kg, 12/30/20 13:59:00 EST, Dry Weight Start Date: 05/07/21 Status: Ordered KlonoPIN 0.5 mg oral tablet 1 tablet = 0.5 mg, By Mouth, 2 times a day, # 56 tablet, 0 Refills, Maintenance, 01/29/22 17:00:00 EST, Tablet, [facility]/pharmacy #[id number], 153, cm, 10/02/21 11:33:00 EST, Height, 80, kg, 09/02/21 13:29:00 EDT, Dry Weight Start Date: 01/29/22 Stop Date: 02/26/22 Status: Ordered lidocaine 1.8% topical film 1 patch, Topically, Daily, leave on up to 12 hours, # 30 each, 11 Refills, Maintenance, 02/22/20 9:39:00 EDT, Film, [facility]/pharmacy #[id number], 1 patch Topically Daily,Instr:leave on up to 12 hours, 153, cm,02/01/20 9:49:00 EDT, Height, 89.6, kg, 12/26/19 19... Start Date: 02/22/20 Status: Ordered Linzess 290 mcg oral capsule 1 capsule = 290 mcg, By Mouth, Daily, TAKE 1 CAPSULE BY MOUTH EVERY DAY, # 90 capsule, 0 Refills, Maintenance, 10/03/21 15:14:00 EST, Capsule, [facility]/pharmacy #[id number], Partial fill upon patient [...] EST, Supply Start Date: 10/03/21 Status: Ordered [place] 0.65% nasal spray 2 sprays, Nares, Both, 4 times a day, # 1 each, 0 Refills, Maintenance, 06/23/21 9:54:00 EDT, [facility]/pharmacy #[id number], Partial fill upon patient request if the prescription is for a schedule II opioid drug., 2 sprays Nares, Both 4 times a day, 153, cm, ... Start Date: 06/23/21 Status: Ordered omeprazole 20 mg oral delayed release tablet 1 tablet = 20 mg, By Mouth, Daily, # 90 tablet, 0 Refills, Maintenance, 10/03/21 15:20:00 EST, EC Tablet, [facility]/pharmacy #[id number], 153, cm, 10/02/21 11:33:00 EST, Height, 80, kg, 09/02/21 13:29:00 EDT, Dry Weight Start Date: 10/03/21 Stop Date: 01/01/22 Status: Ordered ondansetron 4 mg oral tablet 1 tablet = 4 mg, By Mouth, Every 8 hours, PRN as needed for nausea/vomiting, # 15 tablet, 0 Refills, Maintenance, 10/03/21 15:20:00 EST, Tablet, [facility]/pharmacy #[id number], Partial fill upon patient [...] Unknown, 1 Refills, Maintenance, 10/03/21 15:21:00 EST, [facility]/pharmacy #[id number], 90, INJECT 1MG INTO THE SKIN WEEKLY, 153, cm, 10/02/21 11:33:00 EST,Height, 80, kg, 09/02/21 13:29:00 EDT, Dry Weight Start Date: 10/03/21 Status: Ordered Paragard IUD Maintenance, 05/05/19 10:52:19 EDT, Compound Start Date: 05/05/19 Status: Ordered PEG-3350 with Electrolytes (Eqv-NuLYTELY) oral powder for reconstitution See Instructions, as directed, # 1 each, 0 Refills, Maintenance, 12/26/20 14:56:00 EST, [facility] 5[facility], Ok to substitute for [...] M79.7HEIGHT- 5' WEIGHT- 175LBS LIFETIME NEED FAX: [phone], 02/03/21 14:22:00 EDT, Supply Start Date: 02/03/21 [...] # 360 tablet, 1 Refills, [facility], 153, cm, 08/21/21 11:10:00 EDT, Height, 79.6, [...]
--- OUTSIDE RECORDS SUMMARY | 2023-08-13 20:25 | XMS_ITS | Continuity of Care Document ---
Author Name Unknown Organization [facility] Maximo Farias Julian lt Address [address] [place] [address]- Care Team Providers Care Relief Salesperson Name Role Phone Joe Valdez MD Primary Care Physician [place] [facility] [place] 07/04/20 [facility] Adult [address] [place] [address]- [facility] Encounter Diagnosis Chronic back pain(Discharge Diagnosis) - 06/27/20 Hidradenitis suppurativa(Discharge Diagnosis) - 06/27/20 Attending Physician: Joe Valdez MD Allergies, Adverse [...] 07/01/20 16:38:00 EDT, Route to Pharmacy Electronically, [facility]/pharmacy #[id number], 153, cm, 04/23/20 14:32:00 [...] 5 Refills, Maintenance, 05/01/20 16:21:00 EDT, Tablet, [facility]/pharmacy #[id number], 153, cm, 04/23/20 14:32:00 [...] 60 capsule, 6 Refills, Maintenance, 04/23/20 15:15:00EDT, [facility]/pharmacy #[id number], 153, cm, 04/23/20 14:32:00 EDT, Height, 89.6, kg, 12/26/19 19:50:00 EST, Dry Weight Start Date: 04/23/20 Status: Ordered Emgality Prefilled Pen 120 mg/mL subcutaneous solution = 120 mg, Subcutaneous Infusion, Every 28 days, # 1 each, 11 Refills, Maintenance, 07/03/20 14:17:00 EDT, [facility]/pharmacy #[id number], 1st dose broke NEEDS [...] 06/25/20 17:13:00 EDT, Route to Pharmacy Electronically, [facility]/pharmacy #[id number], 153, cm, 04/23/20 14:32:00 EDT, Height, 89.6, kg,... Start Date: 06/25/20 Status: Ordered ipratropium nasal 42 mcg/inh spray 2 sprays, Nares, Both, 3 times a day, # 15 mL, 11 Refills, Maintenance, 01/09/20 10:37:00 EST, [place], [facility]/pharmacy #[id number], 2 sprays Nares, Both 3 times a day, 153, cm, 01/09/20 9:49:00 EST, Height, 89.6, kg, 12/26/19 19:50:00 EST, Dry Weight Start Date: 01/09/20 Status: Ordered KlonoPIN 0.5 mg oral tablet 1 tablet = 0.5 mg, By Mouth, 2 times a day, # 14 tablet, 0 Refills, Maintenance, 04/17/20 12:00:00 EDT, Tablet, [facility]/pharmacy #[id number], 153, cm, 02/01/20 9:49:00 EDT, Height, 89.6, kg, 12/26/19 19:50:00 EST, Dry Weight Start Date: 04/17/20 Stop Date: 04/24/20 Status: Ordered lidocaine 1.8% topical film 1 patch, Topically, Daily, leave on up to 12 hours, # 30 each, 11 Refills, Maintenance, 02/22/20 9:39:00 EDT, [facility], [id number], 1 patch Topically Daily,Instr:leave on up [...] Refills, Maintenance, 07/01/20 16:38:00 EDT, EC Tablet, [facility]/pharmacy #[id number], 153, cm, 04/23/20 14:32:00 [...] 1 Refills, Maintenance, 06/04/20 7:22:00 EDT, Tablet, [facility]/pharmacy #[id number], 153, cm, 04/23/20 14:32:00 EDT, Height, 89.6, kg, 12/26/19 19:50:00 EST, Dry Weight Start Date: 06/04/20 Status: Ordered zolpidem 5 mg oral tablet 1 tablet = 5 mg, By Mouth, Daily at bedtime, PRN as needed for insomnia, needs ov for further refills, # 7 tablet, 0 Refills, Maintenance, 06/14/20 11:30:00 EDT, Tablet, [facility]/pharmacy #[id number], 153, cm, 04/23/20 14:32:00 [...] Service Informant Chronic back pain Discharge Diagnosis 06/27/20 Hidradenitis suppurativa Discharge Diagnosis 06/27/20 Social History Social History Type Response Smoking Status Never smoker; Type: Cigarettes entered on: 06/28/18 Sex
--- OUTSIDE RECORDS SUMMARY | 2023-08-13 20:25 | XMS_ITS | Continuity of Care Document ---
Author Name Unknown Organization [facility] Julian lt Address [address] [place] [address]- Care Team Providers Care Jacker Feeder Name Role Phone Anupama COREAS, Len Thomas Primary Care Physician [phone] Encounter [facility] [place] Date(s): 03/06/21 - 05/07/21 [facility] Adult [address] [place] [address]- Attending Physician: Joe Valdez MD Allergies, Adverse [...] 01/29/21 15:01:00 EST, Route to Pharmacy Electronically, [facility]/pharmacy #[id number], 153, cm, 01/01/21 8:33:00 EST, [...] 0 Refills, Maintenance, 05/07/21 9:18:00 EDT, Tablet, [facility]/pharmacy #[id number], Partial fill upon patient request if the prescription is for a schedule II opioid drug., 153, cm, 05/07/21 7:55:00 EDT,... Start Date: 05/07/21 Status: Ordered [facility] VITAMIN D3 25 MCG SOFTGEL TAKE [...] Refills, Maintenance, 12/10/20 17:49:00 EST, [facility], 153, cm, 12/10/20 15:22:00 EST, Height, 79.6, [...] 07/21/20 23:30:00 EDT, Route to Pharmacy Electronically, [facility]/pharmacy #[id number], 153, cm, 07/09/20 13:32:00 EDT, Height, 89.6, kg,... Start Date: 07/21/20 Status: Ordered ipratropium nasal 42 mcg/inh spray 2 sprays, Nares, Both, 3 times a day, # 15 mL, 11 Refills, Maintenance, 01/09/20 10:37:00 EST, [place], [facility]/pharmacy #[id number], 2 sprays Nares, Both 3 times a day, 153, cm, 01/09/20 9:49:00 EST, Height, 89.6, kg, 12/26/19 19:50:00 EST, Dry Weight Start Date: 01/09/20 Status: Ordered ketoconazole 2% topical shampoo 1 application, Topically, Once, # 120 mL, 1 Refills, Soft Stop, 05/07/21 8:34:00 EDT, Shampoo, [facility]/pharmacy #[id number], 1 application Topically Once, 153, cm, 05/07/21 7:55:00 EDT, Height, 79.6, kg, 12/30/20 13:59:00 EST, Dry Weight Start Date: 05/07/21 Status: Ordered KlonoPIN 0.5 mg oral tablet 1 tablet = 0.5 mg, By Mouth, 2 times a day, # 60 tablet, 0 Refills, Maintenance, 02/18/21 9:54:00 EDT, Tablet, [facility]/pharmacy #[id number], 153, cm, 01/29/21 15:33:00 EST, Height, 79.6, kg, 12/30/20 13:59:00 EST, Dry Weight Start Date: 02/18/21 Status: Ordered lidocaine 1.8% topical film 1 patch, Topically, Daily, leave on up to 12 hours, # 30 each, 11 Refills, Maintenance, 02/22/20 9:39:00 EDT, Film, [facility]/pharmacy #[id number], 1 patch Topically Daily,Instr:leave on [...] Refills, Maintenance, 09/29/20 16:38:00 EST, EC Tablet, [facility]/pharmacy #[id number], 153, cm, 08/28/20 15:44:00 EDT, Height, 89.6, kg, 12/26/19 19:50:00 EST, Dry Weight Start Date: 09/29/20 Stop Date: 12/28/20 Status: Ordered ondansetron 4 mg oral tablet 1 tablet = 4 mg, By Mouth, Every 8 hours, PRN as needed for nausea/vomiting, # 15 tablet, 0 Refills, Maintenance, 11/24/20 14:17:00 EST, Tablet, [facility], Partial fill upon patient request if [...] mL, 11 Refills, Maintenance, 06/04/20 17:34:00 EDT,Solution, [facility]/pharmacy #[id number], 153, cm, 04/23/20 14:32:00 EDT, Height, 89.6, kg, 12/26/19 19:50:00 EST, Dry Weight Start Date: 06/04/20 Status: Ordered Paragard IUD Maintenance, 05/05/19 10:52:19 EDT, Compound Start Date: 05/05/19 Status: Ordered PEG-3350 with Electrolytes (Eqv-NuLYTELY) oral powder for reconstitution See Instructions, as directed, # 1 each, 0 Refills, Maintenance, 12/26/20 14:56:00 EST, [facility], Ok to substitute for ANY gallon prep, as directed, 153, cm, 12/11/20 16:00:00 EST, Height, 79.6, kg, 11/21/20 21:34:00 EST, Dry Weight Start Date: 12/26/20 Status: Ordered plecanatide 3 mg oral tablet 1 tablet = 3 mg, By Mouth, Daily, # 30 tablet, 0 Refills, Maintenance, 02/14/21 11:40:00 EDT, [facility]/pharmacy #0609, Partial fill upon patient request if the [...] M79.7HEIGHT- 5' WEIGHT- 175LBS LIFETIME NEED FAX: [phone], 02/03/21 14:22:00 EDT, Supply Start Date: 02/03/21 [...] 11 Refills, Maintenance, 11/28/20 13:19:00 EST, Aerosol, [facility]/pharmacy #[id number], Partial fill upon patient request if the prescription is for a schedule II opioid drug., 153, cm, 11/28/20 12:47:00 EST, Height, 79.6, kg,... Start Date: 11/28/20 Status: Ordered topiramate 25 mg oral tablet 2 tablet, By Mouth, 2 times a day, # 360 tablet, 1 Refills, Maintenance, 03/03/21 18:31:00 EDT, [facility], [facility], cm, 02/28/21 11:14:00 EDT, Height, 79.6, [...]
--- OUTSIDE RECORDS SUMMARY | 2023-08-13 20:25 | XMS_ITS | Continuity of Care Document ---
Author Name Unknown Organization [facility] Julian lt Address [address] [place] [address]- Care Team Providers Care Oceanographer Geological Name Role Phone Courtney QUACH, Joe Carrion Primary Care Physician [place] [facility] [place] 01[place]20/21 [facility] Adult [address] [place] [address]- Allergies, Adverse Reactions, Alerts Substance Reaction Severity [...] 3 Refills, Maintenance, 02/05/20 11:51:00 EDT, Solution, [facility]/pharmacy #[id number], 153, cm, 02/01/20 9:49:00 EDT, Height, 89.6, kg, 12/26/19 19:50:00 EST, Dry Weight Start Date: 02/05/20 Status: Ordered carBAMazepine 100 mg oral tablet, extended release 200 mg, 2, tablet, By Mouth, 2 times a day, # 360 tablet, Refills 1, Tot. Refills 1, Maintenance, 07/01/20 16:38:00 EDT, Route to Pharmacy Electronically, [facility]/pharmacy #[id number], 153, cm, 04/23/20 14:32:00 EDT, [...] capsule, 5 Refills, Maintenance, 12/10/20 17:49:00 EST, [facility] ST[id number], 153, cm, 12/10/20 15:22:00 EST, Height, 79.6, [...] capsule, 5 Refills, Maintenance, 08/24/20 9:47:00 EDT, [facility]/pharmacy #[id number], 153, cm, 08/14/20 14:22:00 EDT, Height, 89.6, kg, 12/26/19 19:50:00 EST, Dry Weight Start Date: 08/24/20 Status: Ordered Emgality Prefilled Pen 120 mg/mL subcutaneous solution = 120 mg, Subcutaneous Infusion, Every 28 days, # 1 each, 11 Refills, Maintenance, 07/03/20 14:17:00 EDT, [facility]/pharmacy #[id number], 1st dose broke NEEDS ANOTHER, [...] 0 Refills, Soft Stop, 12/13/20 11:33:00 EST, Tablet,[facility]/pharmacy #0693, Partial fill upon patient request [...] 07/21/20 23:30:00 EDT, Route to Pharmacy Electronically, [facility]/pharmacy #[id number], 153, cm, 07/09/20 13:32:00 EDT, Height, 89.6, kg,... Start Date: 07/21/20 Status: Ordered ipratropium nasal 42 mcg/inh spray 2 sprays, Nares, Both, 3 times a day, # 15 mL, 11 Refills, Maintenance, 01/09/20 10:37:00 EST, [place], [facility]/pharmacy #0693, 2 sprays Nares, Both 3 times a day, 153, cm, 01/09/20 9:49:00 EST, Height, 89.6, kg, 12/26/19 19:50:00 EST, Dry Weight Start Date: 01/09/20 Status: Ordered KlonoPIN 0.5 mg oral tablet 1 tablet = 0.5 mg, By Mouth, 2 times a day, # 60 tablet, 0 Refills, Maintenance, 12/26/20 12:54:00 EST, Tablet, [facility]/pharmacy #0693, 153, cm, 12/11/20 16:00:00 EST, Height, 79.6, kg, 11/21/20 21:34:00EST, Dry Weight Start Date: 12/26/20 Status: Ordered lidocaine 1.8% topical film 1 patch, Topically, Daily, leave on up to 12 hours, # 30 each, 11 Refills, Maintenance, 02/22/20 9:39:00 EDT, Film, [facility]/pharmacy #[id number], 1 patch Topically Daily,Instr:leave on up to 12 hours, 153, cm,02/01/20 9:49:00 EDT, Height, 89.6, kg, 12/26/19 19... Start Date: 02/22/20 Status: Ordered Linzess 290 mcg oral capsule 1 capsule, By Mouth, Daily, # 30 capsule, 0 Refills, Maintenance, 01/06/21 15:57:00 EST, [id number], 153, cm, 01/01/21 8:33:00 EST, Height, 79.6, kg, 12/30/20 13:59:00 EST, Dry Weight Start Date: 01/06/21 Status: Ordered metFORMIN 1000 mg oral tablet 1 tablet = 1,000 mg, By Mouth, 2 times a day, new fdose Soumya Jaquez, # 180 tablet, 1 Refills, Maintenance, 10/06/20 13:46:00 EST, Tablet, [facility]/pharmacy #[id number], 153, cm, 08/28/20 15:44:00 EDT, Height, 89.6, kg, 12/26/19 19:50:00 EST, Dry Weight Start Date: 10/06/20 Status: Ordered omeprazole 20 mg oral delayed release tablet 1 tablet = 20 mg, By Mouth, Daily, # 90 tablet, 0 Refills, Maintenance, 09/29/20 16:38:00 EST, EC Tablet, [facility]/pharmacy #[id number], 153, cm, 08/28/20 15:44:00 EDT, Height, 89.6, kg, 12/26/19 19:50:00 EST, Dry Weight Start Date: 09/29/20 Stop Date: 12/28/20 Status: Ordered ondansetron 4 mg oral tablet 1 tablet = 4 mg, By Mouth, Every 8 hours, PRN as needed for nausea/vomiting, # 15 tablet, 0 Refills, Maintenance, 11/24/20 14:17:00 EST, Tablet, [facility], Partial fill upon patient request if the prescription is for a schedule II opioi... Start Date: 11/24/20 Stop Date: 11/29/20 Status: Ordered Ozempic (1 mg dose) 2 mg/1.5 mL subcutaneous solution = 1 mg, Subcutaneous Injection, Every week, # 3 mL, 11 Refills, Maintenance, 06/04/20 17:34:00 EDT,Solution, [facility]/pharmacy #[id number], 153, cm, 04/23/20 14:32:00 EDT, Height, 89.6, kg, 12/26/19 19:50:00 EST, Dry Weight Start Date: 06/04/20 Status: Ordered Paragard IUD Maintenance, 05/05/19 10:52:19 EDT, Compound Start Date: 05/05/19 Status: Ordered PEG-3350 with Electrolytes (Eqv-NuLYTELY) oral powder for reconstitution See Instructions, as directed, # 1 each, 0 Refills, Maintenance, 12/26/20 14:56:00 EST, [facility], Ok to substitute for [...]
--- OUTSIDE RECORDS SUMMARY | 2023-08-13 20:25 | XMS_ITS | Continuity of Care Document ---
Author Name Unknown Organization [facility] Julian lt Address [address] [place] [address]- Care Team Providers Care Salt Manager Name Role Phone Joe Valdez MD Primary Care Physician Encounter [facility] ACCT R [id number] Date(s): 08/05/20 - 08/12/20 [facility] Adult [address] [place] [address]- [facility] Encounter Diagnosis Asthma flare(Discharge Diagnosis) - 08/05/20 Sinusitis(Discharge Diagnosis) - 08/05/20 Attending Physician: Joe Valdez MD Allergies, Adverse [...] 3 Refills, Maintenance, 02/05/20 11:51:00 EDT, Solution, [facility]/pharmacy #[id number], 153, cm, 02/01/20 9:49:00 EDT, Height, 89.6, kg, 12/26/19 19:50:00 EST, Dry Weight Start Date: 02/05/20 Status: Ordered carBAMazepine 100 mg oral tablet, extended release 200 mg, 2, tablet, By Mouth, 2 times a day, # 360 tablet, Refills 1, Tot. Refills 1, Maintenance, 07/01/20 16:38:00 EDT, Route to Pharmacy Electronically, [facility]/pharmacy #[id number], 153, cm, 04/23/20 14:32:00 [...] 5 Refills, Maintenance, 05/01/20 16:21:00 EDT, Tablet, [facility]/pharmacy #[id number], 153, cm, 04/23/20 14:32:00 EDT, Height, 89.6,kg, 12/26/19 19:50:00 EST, Dry Weight Start Date: 05/01/20 Status: Ordered Dulera 200 mcg-5 mcg/inh inhalation aerosol 2 puffs, Inhalation, 2 times a day, Soumya Jaquez, # 13 Gm, 3 Refills, Maintenance, 09/19/19 13:54:11 EDT, Aerosol, 2 puffs Inhalation 2 times a day,Instr:Soumyamarcos Mur[place] Start Date: 09/19/19 Status: Ordered duloxetine 60 mg oral enteric coated capsule 1 capsule = 60 mg, By Mouth, 2 times a day, # 60 capsule, 6 Refills, Maintenance, 04/23/20 15:15:00EDT, [facility]/pharmacy #[id number], 153, cm, 04/23/20 14:32:00 EDT, Height, 89.6, kg, 12/26/19 19:50:00 EST, Dry Weight Start Date: 04/23/20 Status: Ordered Emgality Prefilled Pen 120 mg/mL subcutaneous solution = 120 mg, Subcutaneous Infusion, Every 28 days, # 1 each, 11 Refills, Maintenance, 07/03/20 14:17:00 EDT, [facility]/pharmacy #[id number], 1st dose broke NEEDS [...] 07/21/20 23:30:00 EDT, Route to Pharmacy Electronically, [facility]/pharmacy #[id number], 153, cm, 07/09/20 13:32:00 EDT, Height, 89.6, kg,... Start Date: 07/21/20 Status: Ordered ipratropium nasal 42 mcg/inh spray 2 sprays, Nares, Both, 3 times a day, # 15 mL, 11 Refills, Maintenance, 01/09/20 10:37:00 EST, [place], [facility]/pharmacy #[id number], 2 sprays Nares, Both 3 times a day, 153, cm, 01/09/20 9:49:00 EST, Height, 89.6, kg, 12/26/19 19:50:00 EST, Dry Weight Start Date: 01/09/20 Status: Ordered KlonoPIN 0.5 mg oral tablet 1 tablet = 0.5 mg, By Mouth, 2 times a day, # 14 tablet, 0 Refills, Maintenance, 08/09/20 10:10:00 EDT, Tablet, [facility]/pharmacy #[id number], 153, cm, 08/05/20 13:58:00 EDT, Height, 89.6, kg, 12/26/19 19:50:00EST, Dry Weight Start Date: 08/09/20 Stop Date: 08/16/20 Status: Ordered lidocaine 1.8% topical film 1 patch, Topically, Daily, leave on up to 12 hours, # 30 each, 11 Refills, Maintenance, 02/22/20 9:39:00 EDT, Film, [facility]/pharmacy #[id number], 1 patch Topically Daily,Instr:leave on up to 12 hours, 153, cm,02/01/20 9:49:00 EDT, Height, 89.6, kg, 12/26/19 19... Start Date: 02/22/20 Status: Ordered Linzess 290 mcg oral capsule 1 capsule, By Mouth, Daily, # 30 capsule, 0 Refills, Maintenance, 07/22/20 8:52:00 EDT, [facility]/pharmacy #[id number], 153, cm, 07/09/20 13:32:00 [...] Refills, Maintenance, 07/01/20 16:38:00 EDT, EC Tablet, [facility]/pharmacy #[id number], 153, cm, 04/23/20 14:32:00 EDT, Height, 89.6, kg, 12/26/19 19:50:00 EST, Dry Weight Start Date: 07/01/20 Stop Date: 09/29/20 Status: Ordered Ozempic (1 mg dose) 2 mg/1.5 mL subcutaneous solution = 1 mg, Subcutaneous Injection, Every week, # 3 mL, 11 Refills, Maintenance, 06/04/20 17:34:00 EDT,Solution, [facility]/pharmacy #[id number], 153, cm, 04/23/20 14:32:00 [...] 0 Refills, Maintenance, 07/08/20 16:23:00 EDT, Tablet, [facility]/pharmacy #[id number], 153, cm, 04/23/20 14:32:00 EDT, Height, 89.6, kg, 12/26/19 19:50:00 EST, Dry Weight Start Date: 07/08/20 Status: Ordered zolpidem 5 mg oral tablet 1 tablet = 5 mg, By Mouth, Daily at bedtime, PRN as needed for insomnia, needs ov for further refills, # 7 tablet, 0 Refills, Maintenance, 06/14/20 11:30:00 EDT, Tablet, [facility]/pharmacy #[id number], 153, cm, 04/23/20 14:32:00 EDT, Height, [...] Dates Health Status Cl inical Service Informant Asthma flare Discharge Diagnosis 08/05/20 Sinusitis Discharge Diagnosis 08/05/20 Vital Signs Most recent to oldest [Reference Range]: 1 Height 153 cm (08/05/20 1:58 PM) Social History Social History Type Response Smoking Status Never smoker; Type: Cigarettes entered on: 06/28/18 Sex
--- OUTSIDE RECORDS SUMMARY | 2023-08-13 20:26 | XMS_ITS | Continuity of Care Document ---
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 Name Role Phone Anupama COREAS, Len Thomas Primary Care Physician Encounter [facility] Date(s): 07/11/21 - 08/10/21 [facility] Adult [address] [place] [address]- Allergies, Adverse Reactions, Alerts Substance Reaction Severity [...] 3 Refills, Maintenance, 02/05/20 11:51:00 EDT, Solution, [facility]/pharmacy #[id number], 153, cm, 02/01/20 9:49:00 EDT, [...] 01/29/21 15:01:00 EST, Route to Pharmacy Electronically, [facility]/pharmacy #[id number], 153, cm, 01/01/21 8:33:00 EST, [...] 0 Refills, Maintenance, 05/07/21 9:18:00 EDT, Tablet, [facility]/pharmacy #[id number], Partial fill upon patient request [...] 13:59:00 EST,... Start Date: 05/14/21 Status: Ordered [facility] VITAMIN D3 25 MCG SOFTGEL TAKE [...] Refills, Maintenance, 12/10/20 17:49:00 EST, [id number], 153, cm, 12/10/20 15:22:00 EST, Height, 79.6, [...] capsule, 1 Refills, Maintenance, 06/07/21 14:13:00 EDT, [facility], 153, cm, 05/14/21 12:43:00 EDT, Height, 79.6, [...] 07/21/20 23:30:00 EDT, Route to Pharmacy Electronically, [facility]/pharmacy #[id number], 153, cm, 07/09/20 13:32:00 EDT, Height, 89.6, kg,... Start Date: 07/21/20 Status: Ordered ipratropium nasal 42 mcg/inh spray 2 sprays, Nares, Both, 3 times a day, # 15 mL, 11 Refills, Maintenance, 01/09/20 10:37:00 EST, [place], [facility]/pharmacy #[id number], 2 sprays Nares, Both 3 times a day, 153, cm, 01/09/20 9:49:00 EST, Height, 89.6, kg, 12/26/19 19:50:00 EST, Dry Weight Start Date: 01/09/20 Status: Ordered ketoconazole 2% topical shampoo 1 application, Topically, Once, # 120 mL, 1 Refills, Soft Stop, 05/07/21 8:34:00 EDT, Shampoo, [facility]/pharmacy #[id number], 1 application Topically Once, 153, cm, 05/07/21 7:55:00 EDT, Height, 79.6, kg, 12/30/20 13:59:00 EST, Dry Weight Start Date: 05/07/21 Status: Ordered KlonoPIN 0.5 mg oral tablet 1 tablet = 0.5 mg, By Mouth, 2 times a day, # 60 tablet, 0 Refills, Maintenance, 07/01/21 15:21:00 EDT, Tablet, [facility]/pharmacy #[id number], 153, cm, 06/23/21 9:40:00 EDT, Height, 79.6, kg, 12/30/20 13:59:00 EST, Dry Weight Start Date: 07/01/21 Status: Ordered lidocaine 1.8% topical film 1 patch, Topically, Daily, leave on up to 12 hours, # 30 each, 11 Refills, Maintenance, 02/22/20 9:39:00 EDT, Film, [facility]/pharmacy #[id number], 1 patch Topically Daily,Instr:leave on up to 12 hours, 153, cm,02/01/20 9:49:00 EDT, Height, 89.6, kg, 12/26/19 19... Start Date: 02/22/20 Status: Ordered Linzess 290 mcg oral capsule TAKE 1 CAPSULE BY MOUTH EVERY DAY Start Date: 05/07/21 Status: Ordered [place] 0.65% nasal spray 2 sprays, Nares, Both, 4 times a day, # 1 each, 0 Refills, Maintenance, 06/23/21 9:54:00 EDT, [facility]/pharmacy #[id number], Partial fill upon patient request if the prescription is for a schedule II opioid drug., 2 sprays Nares, Both 4 times a day, 153, cm, ... Start Date: 06/23/21 Status: Ordered omeprazole 20 mg oral delayed release tablet 1 tablet = 20 mg, By Mouth, Daily, # 90 tablet, 0 Refills, Maintenance, 09/29/20 16:38:00 EST, EC Tablet, [facility]/pharmacy #[id number], 153, cm, 08/28/20 15:44:00 EDT, Height, 89.6, kg, 12/26/19 19:50:00 EST, Dry Weight Start Date: 09/29/20 Stop Date: 12/28/20 Status: Ordered ondansetron 4 mg oral tablet 1 tablet = 4 mg, By Mouth, Every 8 hours, PRN as needed for nausea/vomiting, # 15 tablet, 0 Refills, Maintenance, 11/24/20 14:17:00 EST, Tablet, [facility], Partial fill upon patient request if [...] Unknown, 1 Refills, Maintenance, 06/30/21 18:41:00 EDT, [facility]/pharmacy #[id number], 90, INJECT 1MG INTO THE [...] tablet, 0 Refills, Maintenance, 02/14/21 11:40:00 EDT, [facility]/pharmacy #[id number], Partial fill upon patient request [...] M79.7HEIGHT- 5' WEIGHT- 175LBS LIFETIME NEED FAX: [phone], 02/03/21 14:22:00 EDT, Supply Start Date: 02/03/21 [...] 11 Refills, Maintenance, 11/28/20 13:19:00 EST, Aerosol, [facility]/pharmacy #[id number], Partial fill upon patient request if the prescription is for a schedule II opioid drug., 153, cm, 11/28/20 12:47:00 EST, Height, 79.6, kg,... Start Date: 11/28/20 Status: Ordered topiramate 25 mg oral tablet 2 tablet, By Mouth, 2 times a day, # 360 tablet, 1 Refills, Maintenance, 03/03/21 18:31:00 EDT, [id number], 153, cm, 02/28/21 11:14:00 EDT, Height, 79.6, [...]
--- OUTSIDE RECORDS SUMMARY | 2023-08-13 20:26 | XMS_ITS | Continuity of Care Document ---
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/pharmacy #[id number], 153, cm, 08/21/21 11:10:00 [...] 10/03/21 15:12:00 EST, Route to Pharmacy Electronically, [facility]/pharmacy #[id number], 153, cm, 10/02/21 11:33:00 [...] 0 Refills, Maintenance, 05/07/21 9:18:00 EDT, Tablet, [facility]/pharmacy #[id number], Partial fill upon patient [...] 13:59:00 EST,... Start Date: 05/14/21 Status: Ordered [facility] VITAMIN D3 25 MCG SOFTGEL [...] Refills, Maintenance, 12/10/20 17:49:00 EST, [facility], 153, cm, 12/10/20 15:22:00 EST, Height, 79.6, [...] 2 Refills, Maintenance, 10/03/21 15:17:00 EST, [place], [facility]/pharmacy #[id number], Partial fill upon patient [...] 09/03/21 13:19:00 EDT, Route to Pharmacy Electronically, [facility]/pharmacy #[id number], 153, cm, 09/02/21 13:58:00 EDT, Height, 80, kg, 1... Start Date: 09/03/21 Status: Ordered ipratropium nasal 42 mcg/inh spray 2 sprays, Nares, Both, 3 times a day, # 15 mL, 11 Refills, Maintenance, 10/03/21 15:19:00 EST, [place], [facility]/pharmacy #[id number], 2 sprays Nares, Both 3 times a day, 153, cm, 10/02/21 11:33:00 EST, Height, 80, kg, 09/02/21 13:29:00 EDT, Dry Weight Start Date: 10/03/21 Status: Ordered ketoconazole 2% topical shampoo 1 application, Topically, Once, # 120 mL, 1 Refills, Soft Stop, 05/07/21 8:34:00 EDT, Shampoo, [facility]/pharmacy #[id number], 1 application Topically Once, 153, cm, 05/07/21 7:55:00 EDT, Height, 79.6, kg, 12/30/20 13:59:00 EST, Dry Weight Start Date: 05/07/21 Status: Ordered KlonoPIN 0.5 mg oral tablet 1 tablet = 0.5 mg, By Mouth, 2 times a day, # 56 tablet, 0 Refills, Maintenance, 12/04/21 12:17:00 EST, Tablet, [facility]/pharmacy #[id number], 153, cm, 10/02/21 11:33:00 EST, Height, 80, kg, 09/02/21 13:29:00 EDT, Dry Weight Start Date: 12/04/21 Stop Date: 01/01/22 Status: Ordered lidocaine 1.8% topical film 1 patch, Topically, Daily, leave on up to 12 hours, # 30 each, 11 Refills, Maintenance, 02/22/20 9:39:00 EDT, Film, [facility]/pharmacy #[id number], 1 patch Topically Daily,Instr:leave on up to 12 hours, 153, cm,02/01/20 9:49:00 EDT, Height, 89.6, kg, 12/26/19 19... Start Date: 02/22/20 Status: Ordered Linzess 290 mcg oral capsule 1 capsule = 290 mcg, By Mouth, Daily, TAKE 1 CAPSULE BY MOUTH EVERY DAY, # 90 capsule, 0 Refills, Maintenance, 10/03/21 15:14:00 EST, Capsule, [facility]/pharmacy #[id number], Partial fill upon patient [...] EST, Supply Start Date: 10/03/21 Status: Ordered [place] 0.65% nasal spray 2 sprays, Nares, Both, 4 times a day, # 1 each, 0 Refills, Maintenance, 06/23/21 9:54:00 EDT, [facility]/pharmacy #[id number], Partial fill upon patient request if the prescription is for a schedule II opioid drug., 2 sprays Nares, Both 4 times a day, 153, cm, 08/... Start Date: 06/23/21 Status: Ordered omeprazole 20 mg oral delayed release tablet 1 tablet = 20 mg, By Mouth, Daily, # 90 tablet, 0 Refills, Maintenance, 10/03/21 15:20:00 EST, EC Tablet, [facility]/pharmacy #[id number], 153, cm, 10/02/21 11:33:00 EST, Height, 80, kg, 09/02/21 13:29:00 EDT, Dry Weight Start Date: 10/03/21 Stop Date: 01/01/22 Status: Ordered ondansetron 4 mg oral tablet 1 tablet = 4 mg, By Mouth, Every 8 hours, PRN as needed for nausea/vomiting, # 15 tablet, 0 Refills, Maintenance, 10/03/21 15:20:00 EST, Tablet, [facility]/pharmacy #[id number], Partial fill upon patient [...] Unknown, 1 Refills, Maintenance, 10/03/21 15:21:00 EST, [facility]/pharmacy #[id number], 90, INJECT 1MG INTO THE SKIN WEEKLY, 153, cm, 10/02/21 11:33:00 EST,Height, 80, kg, 09/02/21 13:29:00 EDT, Dry Weight Start Date: 10/03/21 Status: Ordered Paragard IUD Maintenance, 05/05/19 10:52:19 EDT, Compound Start Date: 05/05/19 Status: Ordered PEG-3350 with Electrolytes (Eqv-NuLYTELY) oral powder for reconstitution See Instructions, as directed, # 1 each, 0 Refills, Maintenance, 12/26/20 14:56:00 EST, [id number], Ok to substitute for [...] M79.7HEIGHT- 5' WEIGHT- 175LBS LIFETIME NEED FAX: [phone], 02/03/21 14:22:00 EDT, Supply Start Date: 02/03/21 [...] 11 Refills, Maintenance, 11/28/20 13:19:00 EST, Aerosol, [facility]/pharmacy #[id number], Partial fill upon patient request if the prescription is for a schedule II opioid drug., 153, cm, 11/28/20 12:47:00 EST, Height, 79.6, kg,... Start Date: 11/28/20 Status: Ordered topiramate 25 mg oral tablet 2 tablet, By Mouth, 2 times a day, # 360 tablet, 1 Refills, [id number], 153, cm, 08/21/21 11:10:00 EDT, Height, 79.6, [...] insomnia, # 28 tablet, 0 Refills, Maintenance, 12/04/21 12:17:00 EST, Tablet, [id number], 153, cm, 10/02/21 11:33:00 EST, Height, 80, kg, 09/02/21 13:29:00 EDT, Dry Weight Start Date: 12/04/21 Stop Date: 01/01/22 Status: Ordered Problem List Condition Effective Dates [...]
--- OUTSIDE RECORDS SUMMARY | 2023-08-13 20:26 | XMS_ITS | Continuity of Care Document ---
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 Name Role Phone Joe Valdez MD Primary Care Phys[id number] Date[facility] 01/22/20 - 02/23/20 [facility] Adult [address] [place] [address]- [facility] Encounter Diagnosis Bipolar disease, chronic(Discharge Diagnosis) - 01/22/20 Major depression(Discharge Diagnosis) - 01/22/20 PTSD (post-traumatic stress disorder); pyschiatry(Discharge Diagnosis) - 01/22/20 Fibromyalgia(Discharge Diagnosis) - 01/22/20 Asthma, moderate persistent(Discharge Diagnosis) - 01/22/20 Chronic rhinitis(Discharge Diagnosis) - 01/22/20 Attending Physician: Joe Valdez MD Allergies, Adverse [...] 01/18/20 17:04:00 EST, Route to Pharmacy Electronically, [facility]/pharmacy #[id number], 153, cm, 01/09/20 [...] 0 Refills, Maintenance, 01/01/20 14:51:00 EST, Tablet, [facility]/pharmacy #[id number], 153, cm, 12/28/19 7:42:00 EST, Height, 89.6, kg, 12/26/19 19:50:00 EST, Dry Weight Start Date: 01/01/20 Status: Ordered Dulera 200 mcg-5 mcg/inh inhalation aerosol 2 puffs, Inhalation, 2 times a day, Soumya Jaquez, # 13 Gm, 3 Refills, Maintenance, 09/19/19 13:54:11 EDT, Aerosol, 2 puffs Inhalation 2 times a day,Instr:Soumya Jaquez Start Date: 09/19/19 Status: Ordered duloxetine 30 mg oral enteric coated capsule 1 capsule = 30 mg, By Mouth, 2 times a day, start in one week after finish paxil, # 180 capsule, 0 Refills, Maintenance, 02/01/20 9:58:00 EDT, EC Capsule, [facility]/pharmacy #[id number], 153, cm, 02/01/20 9:49:00 EDT, Height, 89.6, kg, 12/26/19 19:50:00 EST, Dry... Start Date: 02/01/20 Status: Ordered Emgality Prefilled Pen 120 mg/mL subcutaneous solution = 120 mg, Subcutaneous Infusion, Every 28 days, First injection given in office, patient supplied meds. Two injections given per order one to each arm subcutaneously. Patient tolerated well. [facility] [id number] EXP 11/2020 LOT [id number] [facility] [id number]... Start Date: 06/02/19 Status: Ordered EpiPen 2-Freeman [...] 10/13/19 7:45:01 EST, Route to Pharmacy Electronically, [id number], [facility]/pharmacy #[id number] Start Date: 10/13/19 Status: Ordered ipratropium nasal 42 mcg/inh spray 2 sprays, Nares, Both, 3 times a day, # 15 mL, 11 Refills, Maintenance, 01/09/20 10:37:00 EST, [place], [facility]/pharmacy #[id number], 2 sprays Nares, Both 3 times a day, 153, cm, 01/09/20 9:49:00 EST, Height, 89.6, kg, 12/26/19 19:50:00 EST, Dry Weight Start Date: 01/09/20 Status: Ordered KlonoPIN 0.5 mg oral tablet 1 tablet = 0.5 mg, By Mouth, 2 times a day, # 24 tablet, 0 Refills, Maintenance, 02/21/20 16:50:00 EDT, Tablet, [facility]/pharmacy #[id number], 153, cm, 02/01/20 9:49:00 EDT, Height, 89.6, kg, 12/26/19 19:50:00 EST, Dry Weight Start Date: 02/21/20 Status: Ordered lidocaine 1.8% topical film 1 [...] 0 Refills, Maintenance, 01/01/20 14:50:00 EST, Capsule, [facility]/pharmacy #[id number], 153, cm, 12/28/19 [...] dose) 2 mg/1.5 mL subcutaneous solution = 0.5 mg, Subcutaneous Injection, Every week, # 1.5 mL, 1 Refills, Maintenance, 02/22/20 8:08:00 EDT, Solution, [facility]/pharmacy #[id number], 153, cm, 02/01/20 9:49:00 EDT, Height, 89.6, kg, 12/26/19 19:50:00 EST, Dry Weight Start Date: 02/22/20 Stop Date: 04/18/20 Status: Ordered Paragard IUD Maintenance, 05/05/19 10:52:19 [...] EST, Tablet Start Date: 12/27/19 Status: Ordered zolpidem 5 mg oral tablet 1 tablet = 5 mg, By Mouth, Daily at bedtime, PRN as needed for insomnia, # 30 tablet, 0 Refills, Maintenance, 02/22/20 9:41:00 EDT, Tablet, [id number], 153, cm, 02/01/20 9:49:00 EDT, Height, 89.6, kg, 12/26/19 19:50:00 EST, Dry Weight Start Date: 02/22/20 Status: Ordered Problem List Condition Effective Dates [...] Effective Dates Health Status Clinical Service Informant Bipolar disease, chronic Discharge Diagnosis 01/22/20 Major depression Discharge Diagnosis 01/22/20 PTSD (post-traumatic stress disorder); pyschiatry Discharge Diagnosis 01/22/20 Fibromyalgia Discharge Diagnosis 01/22/20 Asthma, moderate persistent Discharge Diagnosis 01/22/20 Chronic rhinitis Discharge Diagnosis 01/22/20 Social History Social History Type Response Smoking Status Never smoker; Type: Cigarettes entered on: 06/28/18 Sex
--- OUTSIDE RECORDS SUMMARY | 2023-08-13 20:26 | XMS_ITS | Continuity of Care Document ---
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 Name Role Phone Courtney QUACH, Joe Carrion Primary Care Physician Encounter [facility] Date(s): 12/30/20 - 01/29/21 [facility] Adult [address] [place] [address]- Allergies, Adverse Reactions, Alerts Substance Reaction Severity [...] 3 Refills, Maintenance, 02/05/20 11:51:00 EDT, Solution, [facility]/pharmacy #[id number], 153, cm, 02/01/20 9:49:00 EDT, Height, 89.6, kg, 12/26/19 19:50:00 EST, Dry Weight Start Date: 02/05/20 Status: Ordered carBAMazepine 100 mg oral tablet, extended release 200 mg, 2, tablet, By Mouth, 2 times a day, # 360 tablet, Refills 1, Tot. Refills 1, Maintenance, 01/29/21 15:01:00 EST, Route to Pharmacy Electronically, [facility]/pharmacy #[id number], 153, cm, 01/01/21 8:33:00 EST, Height, 79.6, kg, 12/30/20 13:59:00 EST, Dry... Start Date: 01/29/21 Stop Date: 07/28/21 Status: Ordered diabetic shoes diabetic shoes, See [...] Refills, Maintenance, 12/10/20 17:49:00 EST, [id number], 153, cm, 12/10/20 15:22:00 EST, Height, 79.6, [...] capsule, 5 Refills, Maintenance, 08/24/20 9:47:00 EDT, [facility]/pharmacy #[id number], 153, cm, 08/14/20 14:22:00 EDT, Height, 89.6, kg, 12/26/19 19:50:00 EST, Dry Weight Start Date: 08/24/20 Status: Ordered Emgality Prefilled Pen 120 mg/mL subcutaneous solution = 120 mg, Subcutaneous Infusion, Every 28 days, # 1 each, 11 Refills, Maintenance, 07/03/20 14:17:00 EDT, [facility]/pharmacy #[id number], 1st dose broke NEEDS ANOTHER, [...] 07/21/20 23:30:00 EDT, Route to Pharmacy Electronically, [facility]/pharmacy #[id number], 153, cm, 07/09/20 13:32:00 EDT, Height, 89.6, kg,... Start Date: 07/21/20 Status: Ordered ipratropium nasal 42 mcg/inh spray 2 sprays, Nares, Both, 3 times a day, # 15 mL, 11 Refills, Maintenance, 01/09/20 10:37:00 EST, [place], [facility]/pharmacy #[id number], 2 sprays Nares, Both 3 times a day, 153, cm, 01/09/20 9:49:00 EST, Height, 89.6, kg, 12/26/19 19:50:00 EST, Dry Weight Start Date: 01/09/20 Status: Ordered KlonoPIN 0.5 mg oral tablet 1 tablet = 0.5 mg, By Mouth, 2 times a day, # 60 tablet, 0 Refills, Maintenance, 12/26/20 12:54:00 EST, Tablet, [facility]/pharmacy #[id number], 153, cm, 12/11/20 16:00:00 EST, Height, 79.6, kg, 11/21/20 21:34:00EST, Dry Weight Start Date: 12/26/20 Status: Ordered lidocaine 1.8% topical film 1 patch, Topically, Daily, leave on up to 12 hours, # 30 each, 11 Refills, Maintenance, 02/22/20 9:39:00 EDT, Film, [facility]/pharmacy #[id number], 1 patch Topically Daily,Instr:leave on [...] 1 Refills, Maintenance, 10/06/20 13:46:00 EST, Tablet, [facility]/pharmacy #[id number], 153, cm, 08/28/20 15:44:00 EDT, Height, 89.6, kg, 12/26/19 19:50:00 EST, Dry Weight Start Date: 10/06/20 Status: Ordered omeprazole 20 mg oral delayed release tablet 1 tablet = 20 mg, By Mouth, Daily, # 90 tablet, 0 Refills, Maintenance, 09/29/20 16:38:00 EST, EC Tablet, [facility]/pharmacy #[id number], 153, cm, 08/28/20 15:44:00 EDT, Height, 89.6, kg, 12/26/19 19:50:00 EST, Dry Weight Start Date: 09/29/20 Stop Date: 12/28/20 Status: Ordered ondansetron 4 mg oral tablet 1 tablet = 4 mg, By Mouth, Every 8 hours, PRN as needed for nausea/vomiting, # 15 tablet, 0 Refills, Maintenance, 11/24/20 14:17:00 EST, Tablet, [facility], Partial fill upon patient request if the prescription is for a schedule II opioi... Start Date: 11/24/20 Stop Date: 11/29/20 Status: Ordered Ozempic (1 mg dose) 2 mg/1.5 mL subcutaneous solution = 1 mg, Subcutaneous Injection, Every week, # 3 mL, 11 Refills, Maintenance, 06/04/20 17:34:00 EDT,[id number], cm, 04/23/20 14:32:00 EDT, Height, 89.6, kg, 12/26/19 19:50:00 EST, Dry Weight Start Date: 06/04/20 Status: Ordered Paragard IUD Maintenance, 05/05/19 10:52:19 EDT, Compound Start Date: 05/05/19 Status: Ordered PEG-3350 with Electrolytes (Eqv-NuLYTELY) oral powder for reconstitution See Instructions, as directed, # 1 each, 0 Refills, Maintenance, 12/26/20 14:56:00 EST, [id number], Ok to substitute [...]
--- OUTSIDE RECORDS SUMMARY | 2023-08-13 20:26 | XMS_ITS | Continuity of Care Document ---
Author Name Unknown Organization [facility] Address [address] [place] [address]- Care Team Providers Care Medical Pathology Teacher Name Role Phone Polly QUACH, Estelle Charles Primary Care Physic gustavo [place] [facility] [place] 10[place]21 [facility] [address] [place] [address]- Allergies, Adverse Reactions, Alerts Substance Reaction Severity [...] mL, 0 Refills, Maintenance, 08/31/21 20:13:00 EDT, [facility]/pharmacy #[id number], 153, cm, 08/21/21 [...] 10/03/21 15:12:00 EST, Route to Pharmacy Electronically, [facility]/pharmacy #[id number], 153, cm, 10/02/21 [...] 0 Refills, Maintenance, 05/07/21 9:18:00 EDT, Tablet, [facility]/pharmacy #[id number], Partial fill upon [...] 13:59:00 EST,... Start Date: 05/14/21 Status: Ordered [facility] VITAMIN D3 25 MCG SOFTGEL TAKE 1 CAPSULE BY MOUTH EVERY DAY Start Date: 05/07/21 Status: Ordered DIABETIC SHOES with inserts DIABETIC SHOES with inserts, See Instructions, # 1 each, Refills 1, Tot. Refills 1, Maintenance, DX: DM E11.9 Soumay Jaquez , 10/03/21 17:31:00 EST, Compound Start [...] Refills, Maintenance, 12/10/20 17:49:00 EST, [id number], 153, cm, 12/10/20 15:22:00 EST, Height, 79.6, [...] 2 Refills, Maintenance, 10/03/21 15:17:00 EST, Nasal [place], [facility]/pharmacy #[id number], Partial fill upon [...] 09/03/21 13:19:00 EDT, Route to Pharmacy Electronically, [facility]/pharmacy #[id number], 153, cm, 09/02/21 13:58:00 EDT, Height, 80, kg, 1... Start Date: 09/03/21 Status: Ordered ipratropium nasal 42 mcg/inh spray 2 sprays, Nares, Both, 3 times a day, # 15 mL, 11 Refills, Maintenance, 10/03/21 15:19:00 EST, [place], [facility]/pharmacy #[id number], 2 sprays Nares, Both 3 times a day, 153, cm, 10/02/21 11:33:00 EST, Height, 80, kg, 09/02/21 13:29:00 EDT, Dry Weight Start Date: 10/03/21 Status: Ordered ketoconazole 2% topical shampoo 1 application, Topically, Once, # 120 mL, 1 Refills, Soft Stop, 05/07/21 8:34:00 EDT, Shampoo, [facility]/pharmacy #[id number], 1 application Topically Once, 153, cm, 05/07/21 7:55:00 EDT, Height, 79.6, kg, 12/30/20 13:59:00 EST, Dry Weight Start Date: 05/07/21 Status: Ordered KlonoPIN 0.5 mg oral tablet 1 tablet = 0.5 mg, By Mouth, 2 times a day, # 56 tablet, 0 Refills, Maintenance, 09/03/21 9:37:00 EDT, Tablet, [facility]/pharmacy #[id number], 153, cm, 09/02/21 13:58:00 EDT, Height, 80, kg, 09/02/21 13:29:00 EDT, Dry Weight Start Date: 09/03/21 Stop Date: 10/01/21 Status: Ordered lidocaine 1.8% topical film 1 patch, Topically, Daily, leave on up to 12 hours, # 30 each, 11 Refills, Maintenance, 02/22/20 9:39:00 EDT, Film, [facility]/pharmacy #[id number], 1 patch Topically Daily,Instr:leave on up to 12 hours, 153, cm,02/01/20 9:49:00 EDT, Height, 89.6, kg, 12/26/19 19... Start Date: 02/22/20 Status: Ordered Linzess 290 mcg oral capsule 1 capsule = 290 mcg, By Mouth, Daily, TAKE 1 CAPSULE BY MOUTH EVERY DAY, # 90 capsule, 0 Refills, Maintenance, 10/03/21 15:14:00 EST, Capsule, [facility]/pharmacy #[id number], Partial fill upon [...] EST, Supply Start Date: 10/03/21 Status: Ordered [place] 0.65% nasal spray 2 sprays, Nares, Both, 4 times a day, # 1 each, 0 Refills, Maintenance, 06/23/21 9:54:00 EDT, [facility]/pharmacy #[id number], Partial fill upon patient request if the prescription is for a schedule II opioid drug., 2 sprays Nares, Both 4 times a day, 153, cm, 08/... Start Date: 06/23/21 Status: Ordered omeprazole 20 mg oral delayed release tablet 1 tablet = 20 mg, By Mouth, Daily, # 90 tablet, 0 Refills, Maintenance, 10/03/21 15:20:00 EST, EC Tablet, [facility]/pharmacy #[id number], 153, cm, 10/02/21 11:33:00 EST, Height, 80, kg, 09/02/21 13:29:00 EDT, Dry Weight Start Date: 10/03/21 Stop Date: 01/01/22 Status: Ordered ondansetron 4 mg oral tablet 1 tablet = 4 mg, By Mouth, Every 8 hours, PRN as needed for nausea/vomiting, # 15 tablet, 0 Refills, Maintenance, 10/03/21 15:20:00 EST, Tablet, [facility]/pharmacy #[id number], Partial fill upon [...] Unknown, 1 Refills, Maintenance, 10/03/21 15:21:00 EST, [facility]/pharmacy #[id number], 90, INJECT 1MG INTO THE SKIN WEEKLY, 153, cm, 10/02/21 11:33:00 EST,Height, 80, kg, 09/02/21 13:29:00 EDT, Dry Weight Start Date: 10/03/21 Status: Ordered Paragard IUD Maintenance, 05/05/19 10:52:19 EDT, Compound Start Date: 05/05/19 Status: Ordered PEG-3350 with Electrolytes (Eqv-NuLYTELY) oral powder for reconstitution See Instructions, as directed, # 1 each, 0 Refills, Maintenance, 12/26/20 14:56:00 EST, [facility], Ok to substitute for [...] M79.7HEIGHT- 5' WEIGHT- 175LBS LIFETIME NEED FAX: [phone], 02/03/21 14:22:00 EDT, Supply Start Date: 02/03/21 [...] 11 Refills, Maintenance, 11/28/20 13:19:00 EST, [place], [facility]/pharmacy #[id number], Partial fill upon patient request if the prescription is for a schedule II opioid drug., 153, cm, 11/28/20 12:47:00 EST, Height, 79.6, kg,... Start Date: 11/28/20 Status: Ordered topiramate 25 mg oral tablet 2 tablet, By Mouth, 2 times a day, # 360 tablet, 1 Refills, [id number], 153, cm, 08/21/21 11:10:00 EDT, Height, 79.6, [...]
--- OUTSIDE RECORDS SUMMARY | 2023-08-13 20:26 | XMS_ITS | Continuity of Care Document ---
Author Name Unknown Organization [facility] Julian lt Address [address] [place] [id number]- Care Team Providers Care Cat Sitter Name Role Phone Joe Valdez MD Primary Care Physician [phone] Encounter [facility] Date(s): 02/28/21 - 03/07/21 [facility] Adult [address] [place] [address]- Encounter Diagnosis Fever(Discharge Diagnosis) - 02/28/21 Abdominal pain(Discharge Diagnosis) - 02/28/21 Attending Physician: Joe Valdez MD Allergies, Adverse [...] 3 Refills, Maintenance, 02/05/20 11:51:00 EDT, Solution, [facility]/pharmacy #[id number], 153, cm, 02/01/20 9:49:00 EDT, Height, [...] 01/29/21 15:01:00 EST, Route to Pharmacy Electronically, [facility]/pharmacy #[id number], 153, cm, 01/01/21 8:33:00 EST, Height, 79.6, kg, 12/30/20 13:59:00 EST, Dry... Start Date: 01/29/21 Stop Date: 07/28/21 Status: Ordered clindamycin 300 mg oral capsule 1 capsule = 300 mg, By Mouth, Every 6 hours, for 10 days, # 40 capsule, 0 Refills, Acute 03/15/21 11:44:00 EDT, 03/05/21 11:44:00 EDT, [facility], [id number], Partial fill upon patient [...] Refills, Maintenance, 12/10/20 17:49:00 EST, [id number], 153, cm, 12/10/20 15:22:00 EST, Height, 79.6, [...] each, 11 Refills, Maintenance, 07/03/20 14:17:00 EDT, [facility]/pharmacy #[id number], 1st dose broke NEEDS ANOTHER, 153, [...] 0 Refills, Soft Stop, 12/13/20 11:33:00 EST, Tablet,[facility]/pharmacy #[id number], Partial fill upon patient request if [...] 07/21/20 23:30:00 EDT, Route to Pharmacy Electronically, [facility]/pharmacy #[id number], 153, cm, 07/09/20 13:32:00 EDT, Height, 89.6, kg,... Start Date: 07/21/20 Status: Ordered ipratropium nasal 42 mcg/inh spray 2 sprays, Nares, Both, 3 times a day, # 15 mL, 11 Refills, Maintenance, 01/09/20 10:37:00 EST, [place], [facility]/pharmacy #[id number], 2 sprays Nares, Both 3 times a day, 153, cm, 01/09/20 9:49:00 EST, Height, 89.6, kg, 12/26/19 19:50:00 EST, Dry Weight Start Date: 01/09/20 Status: Ordered KlonoPIN 0.5 mg oral tablet 1 tablet = 0.5 mg, By Mouth, 2 times a day, # 60 tablet, 0 Refills, Maintenance, 02/18/21 9:54:00 EDT, Tablet, [facility]/pharmacy #[id number], 153, cm, 01/29/21 15:33:00 EST, Height, 79.6, kg, 12/30/20 13:59:00 EST, Dry Weight Start Date: 02/18/21 Status: Ordered lidocaine 1.8% topical film 1 patch, Topically, Daily, leave on up to 12 hours, # 30 each, 11 Refills, Maintenance, 02/22/20 9:39:00 EDT, Film, [facility]/pharmacy #[id number], 1 patch Topically Daily,Instr:leave on up to 12 hours, 153, cm,02/01/20 9:49:00 EDT, Height, 89.6, kg, 12/26/19 19... Start Date: 02/22/20 Status: Ordered metFORMIN 1000 mg oral tablet 1 tablet = 1,000 mg, By Mouth, 2 times a day, new fdose Soumya Jaquez, # 180 tablet, 1 Refills, Maintenance, 10/06/20 13:46:00 EST, Tablet, [facility]/pharmacy #[id number], 153, cm, 08/28/20 15:44:00 EDT, Height, 89.6, kg, 12/26/19 19:50:00 EST, Dry Weight Start Date: 10/06/20 Status: Ordered omeprazole 20 mg oral delayed release tablet 1 tablet = 20 mg, By Mouth, Daily, # 90 tablet, 0 Refills, Maintenance, 09/29/20 16:38:00 EST, EC Tablet, [facility]/pharmacy #[id number], 153, cm, 08/28/20 15:44:00 EDT, Height, 89.6, kg, 12/26/19 19:50:00 EST, Dry Weight Start Date: 09/29/20 Stop Date: 12/28/20 Status: Ordered ondansetron 4 mg oral tablet 1 tablet = 4 mg, By Mouth, Every 8 hours, PRN as needed for nausea/vomiting, # 15 tablet, 0 Refills, Maintenance, 11/24/20 14:17:00 EST, Tablet, [facility], Partial fill upon patient request if the prescription is for a schedule II opioi... Start Date: 11/24/20 Stop Date: 11/29/20 Status: Ordered Ozempic (1 mg dose) 2 mg/1.5 mL subcutaneous solution = 1 mg, Subcutaneous Injection, Every week, # 3 mL, 11 Refills, Maintenance, 06/04/20 17:34:00 EDT,Solution, [facility]/pharmacy #[id number], 153, cm, 04/23/20 14:32:00 EDT, Height, 89.6, kg, 12/26/19 19:50:00 EST, Dry Weight Start Date: 06/04/20 Status: Ordered Paragard IUD Maintenance, 05/05/19 10:52:19 EDT, Compound Start Date: 05/05/19 Status: Ordered PEG-3350 with Electrolytes (Eqv-NuLYTELY) oral powder for reconstitution See Instructions, as directed, # 1 each, 0 Refills, Maintenance, 12/26/20 14:56:00 EST, [facility], Ok to substitute for ANY gallon prep, as directed, 153, cm, 12/11/20 16:00:00 EST, Height, 79.6, kg, 11/21/20 21:34:00 EST, Dry Weight Start Date: 12/26/20 Status: Ordered plecanatide 3 mg oral tablet 1 tablet = 3 mg, By Mouth, Daily, # 30 tablet, 0 Refills, Maintenance, 02/14/21 11:40:00 EDT, [facility]/pharmacy #[id number], Partial fill upon patient request if [...] M79.7HEIGHT- 5' WEIGHT- 175LBS LIFETIME NEED FAX: [phone], 02/03/21 14:22:00 EDT, Supply Start Date: 02/03/21 [...] 1 Refills, Maintenance, 03/03/21 18:31:00 EDT, [facility], 153, cm, 02/28/21 11:14:00 EDT, Height, 79.6, [...] Dates Health Status Cl inical Service Informant Fever Discharge Diagnosis 02/28/21 Abdominal pain Discharge Diagnosis 02/28/21 Vital Signs Most recent to oldest [Reference Range]: 1 Height 153 cm (02/28/21 11:14 AM) Social History Social History Type Response Smoking Status Never smoker; Type: Cigarettes entered on: 06/28/18 Sex
--- OUTSIDE RECORDS SUMMARY | 2023-08-13 20:26 | XMS_ITS | Continuity of Care Document ---
Author Name Unknown Organization [facility] Address [address] [place] [address]- Care Team Providers Care Director Of Golf Name Role Phone Joe Valdez MD Primary Care Physician [phone] Encounter 09/11/20 - 11/07/20 [facility] [address], [address] [place] [address]- Attending Physician: Joe Valdez MD Admitting Physician: Joe Valdez MD Referring Physician: Joe Valdez MD Allergies, [...] Refills, Maintenance, 07/08/20 16:24:00 EDT, [facility], [id number], 1 capsule By Mouth Every 6 hours,Instr:not [...] 3 Refills, Maintenance, 02/05/20 11:51:00 EDT, Solution, [facility]/pharmacy #[id number], 153, cm, 02/01/20 9:49:00 EDT, Height, 89.6, kg, 12/26/19 19:50:00 EST, Dry Weight Start Date: 02/05/20 Status: Ordered carBAMazepine 100 mg oral tablet, extended release 200 mg, 2, tablet, By Mouth, 2 times a day, # 360 tablet, Refills 1, Tot. Refills 1, Maintenance, 07/01/20 16:38:00 EDT, Route to Pharmacy Electronically, [facility]/pharmacy #[id number], 153, cm, 04/23/20 14:32:00 EDT, [...] 5 Refills, Maintenance, 05/01/20 16:21:00 EDT, Tablet, [facility]/pharmacy #[id number], 153, cm, 04/23/20 14:32:00 EDT, [...] capsule, 5 Refills, Maintenance, 08/24/20 9:47:00 EDT, [facility]/pharmacy #[id number], 153, cm, 08/14/20 14:22:00 EDT, Height, 89.6, kg, 12/26/19 19:50:00 EST, Dry Weight Start Date: 08/24/20 Status: Ordered Emgality Prefilled Pen 120 mg/mL subcutaneous solution = 120 mg, Subcutaneous Infusion, Every 28 days, # 1 each, 11 Refills, Maintenance, 07/03/20 14:17:00 EDT, [facility]/pharmacy #[id number], 1st dose broke NEEDS ANOTHER, [...] 07/21/20 23:30:00 EDT, Route to Pharmacy Electronically, [facility]/pharmacy #[id number], 153, cm, 07/09/20 13:32:00 EDT, Height, 89.6, kg,... Start Date: 07/21/20 Status: Ordered ipratropium nasal 42 mcg/inh spray 2 sprays, Nares, Both, 3 times a day, # 15 mL, 11 Refills, Maintenance, 01/09/20 10:37:00 EST, [place], [facility]/pharmacy #[id number], 2 sprays Nares, Both 3 times a day, 153, cm, 01/09/20 9:49:00 EST, Height, 89.6, kg, 12/26/19 19:50:00 EST, Dry Weight Start Date: 01/09/20 Status: Ordered KlonoPIN 0.5 mg oral tablet 1 tablet = 0.5 mg, By Mouth, 2 times a day, # 14 tablet, 0 Refills, Maintenance, 09/30/20 20:51:00 EST, Tablet, [facility]/pharmacy #[id number], 153, cm, 08/28/20 15:44:00 EDT, Height, 89.6, kg, 12/26/19 19:50:00EST, Dry Weight Start Date: 09/30/20 Stop Date: 10/07/20 Status: Ordered lidocaine 1.8% topical film 1 patch, Topically, Daily, leave on up to 12 hours, # 30 each, 11 Refills, Maintenance, 02/22/20 9:39:00 EDT, Film, [facility]/pharmacy #[id number], 1 patch Topically Daily,Instr:leave on up to 12 hours, 153, cm,02/01/20 9:49:00 EDT, Height, 89.6, kg, 12/26/19 19... Start Date: 02/22/20 Status: Ordered Linzess 290 mcg oral capsule 1 capsule, By Mouth, Daily, # 30 capsule, 0 Refills, Maintenance, 11/05/20 10:00:00 EST, [facility]/pharmacy #[id number], 153, cm, 08/28/20 15:44:00 EDT, Height, 89.6, kg, 12/26/19 19:50:00 EST, Dry Weight Start Date: 11/05/20 Status: Ordered metFORMIN 1000 mg oral tablet 1 tablet = 1,000 mg, By Mouth, 2 times a day, new fdose Soumya Jaquez, # 180 tablet, 1 Refills, Maintenance, 10/06/20 13:46:00 EST, Tablet, [facility]/pharmacy #[id number], 153, cm, 08/28/20 15:44:00 EDT, Height, 89.6, kg, 12/26/19 19:50:00 EST, Dry Weight Start Date: 10/06/20 Status: Ordered omeprazole 20 mg oral delayed release tablet 1 tablet = 20 mg, By Mouth, Daily, # 90 tablet, 0 Refills, Maintenance, 09/29/20 16:38:00 EST, EC Tablet, [id number], 153, cm, 08/28/20 15:44:00 EDT, Height, 89.6, kg, 12/26/19 19:50:00 EST, Dry Weight Start Date: 09/29/20 Stop Date: 12/28/20 Status: Ordered Ozempic (1 mg dose) 2 [...] insomnia, # 30 tablet, 0 Refills, Maintenance, 09/30/20 20:51:00 EST, Tablet, [id number], 10/05/20, 153, cm, 08/28/20 15:44:00 EDT, Height, 89.6, kg, 12/26/19 19:50:00 EST, Dry Weight Start Date: 09/30/20 Status: Ordered Problem List Condition Effective Dates [...]
--- OUTSIDE RECORDS SUMMARY | 2023-08-13 20:26 | XMS_ITS | Continuity of Care Document ---
Author Name Unknown Organization [facility] Julian lt Address [address] [place] [address]- Care Team Providers Care Senior Painter Name Role Phone Courtney QUACH, Joe Carrion Primary Care Physician Encounter [facility] Date(s): 07/03/20 - 08/02/20 [facility] Adult [address] [place] [address]- [facility] Allergies, Adverse Reactions, Alerts Substance [...] 07/01/20 16:38:00 EDT, Route to Pharmacy Electronically, [facility]/pharmacy #[id number], 153, cm, 04/23/20 14:32:00 [...] 5 Refills, Maintenance, 05/01/20 16:21:00 EDT, Tablet, [facility]/pharmacy #[id number], 153, cm, 04/23/20 14:32:00 [...] 60 capsule, 6 Refills, Maintenance, 04/23/20 15:15:00EDT, [facility]/pharmacy #[id number], 153, cm, 04/23/20 14:32:00 EDT, Height, 89.6, kg, 12/26/19 19:50:00 EST, Dry Weight Start Date: 04/23/20 Status: Ordered Emgality Prefilled Pen 120 mg/mL subcutaneous solution = 120 mg, Subcutaneous Infusion, Every 28 days, # 1 each, 11 Refills, Maintenance, 07/03/20 14:17:00 EDT, [facility]/pharmacy #[id number], 1st dose broke NEEDS [...] 07/21/20 23:30:00 EDT, Route to Pharmacy Electronically, [facility]/pharmacy #[id number], 153, cm, 07/09/20 13:32:00 EDT, Height, 89.6, kg,... Start Date: 07/21/20 Status: Ordered ipratropium nasal 42 mcg/inh spray 2 sprays, Nares, Both, 3 times a day, # 15 mL, 11 Refills, Maintenance, 01/09/20 10:37:00 EST, [place], [facility]/pharmacy #0693, 2 sprays Nares, Both 3 times a day, 153, cm, 01/09/20 9:49:00 EST, Height, 89.6, kg, 12/26/19 19:50:00 EST, Dry Weight Start Date: 01/09/20 Status: Ordered KlonoPIN 0.5 mg oral tablet 1 tablet = 0.5 mg, By Mouth, 2 times a day, # 14 tablet, 0 Refills, Maintenance, 07/18/20 17:06:00 EDT, Tablet, [facility]/pharmacy #[id number], 153, cm, 07/09/20 13:32:00 EDT, Height, 89.6, kg, 12/26/19 19:50:00EST, Dry Weight Start Date: 07/18/20 Stop Date: 07/25/20 Status: Ordered lidocaine 1.8% topical film 1 patch, Topically, Daily, leave on up to 12 hours, # 30 each, 11 Refills, Maintenance, 02/22/20 9:39:00 EDT, Film, [facility]/pharmacy #[id number], 1 patch Topically Daily,Instr:leave [...]
--- OUTSIDE RECORDS SUMMARY | 2023-08-13 20:26 | XMS_ITS | Continuity of Care Document ---
Author Name Unknown Organization [facility] Julian lt Address [address] [place] [address]- Care Team Providers Care Music Publicist Name Role Phone Courtney QUACH, Joe Carrion Primary Care Physician [phone] Encounter [facility] Date(s): 01/28/21 - 02/27/21 [facility] Adult [address] [place] [address]- Allergies, Adverse Reactions, Alerts Substance Reaction Severity [...] 3 Refills, Maintenance, 02/05/20 11:51:00 EDT, Solution, [facility]/pharmacy #[id number], 153, cm, 02/01/20 9:49:00 EDT, Height, [...] 01/29/21 15:01:00 EST, Route to Pharmacy Electronically, [facility]/pharmacy #[id number], 153, cm, 01/01/21 8:33:00 EST, Height, [...] Refills, Maintenance, 12/10/20 17:49:00 EST, [id number], 153, cm, 12/10/20 15:22:00 EST, Height, 79.6, [...] capsule, 5 Refills, Maintenance, 08/24/20 9:47:00 EDT, [facility]/pharmacy #[id number], 153, cm, 08/14/20 14:22:00 EDT, Height, 89.6, kg, 12/26/19 19:50:00 EST, Dry Weight Start Date: 08/24/20 Status: Ordered Emgality Prefilled Pen 120 mg/mL subcutaneous solution = 120 mg, Subcutaneous Infusion, Every 28 days, # 1 each, 11 Refills, Maintenance, 07/03/20 14:17:00 EDT, [facility]/pharmacy #[id number], 1st dose broke NEEDS ANOTHER, 153, [...] Refills, Soft Stop, 12/13/20 11:33:00 EST, Tablet,[id number], Partial fill upon patient request if the [...] 07/21/20 23:30:00 EDT, Route to Pharmacy Electronically, [facility]/pharmacy #[id number], 153, cm, 07/09/20 13:32:00 EDT, Height, 89.6, kg,... Start Date: 07/21/20 Status: Ordered ipratropium nasal 42 mcg/inh spray 2 sprays, Nares, Both, 3 times a day, # 15 mL, 11 Refills, Maintenance, 01/09/20 10:37:00 EST, [place], [facility]/pharmacy #[id number], 2 sprays Nares, Both 3 times a day, 153, cm, 01/09/20 9:49:00 EST, Height, 89.6, kg, 12/26/19 19:50:00 EST, Dry Weight Start Date: 01/09/20 Status: Ordered KlonoPIN 0.5 mg oral tablet 1 tablet = 0.5 mg, By Mouth, 2 times a day, # 60 tablet, 0 Refills, Maintenance, 02/18/21 9:54:00 EDT, Tablet, [facility]/pharmacy #[id number], 153, cm, 01/29/21 15:33:00 EST, Height, 79.6, kg, 12/30/20 13:59:00 EST, Dry Weight Start Date: 02/18/21 Status: Ordered lidocaine 1.8% topical film 1 patch, Topically, Daily, leave on up to 12 hours, # 30 each, 11 Refills, Maintenance, 02/22/20 9:39:00 EDT, Film, [facility]/pharmacy #[id number], 1 patch Topically Daily,Instr:leave on up [...] each, 0 Refills, Maintenance, 12/26/20 14:56:00 EST, [id number], Ok to substitute for ANY gallon prep, as directed, 153, cm, 12/11/20 16:00:00 EST, Height, 79.6, kg, 11/21/20 21:34:00 EST, Dry Weight Start Date: 12/26/20 Status: Ordered plecanatide 3 mg oral tablet 1 tablet = 3 mg, By Mouth, Daily, # 30 tablet, 0 Refills, Maintenance, 02/14/21 11:40:00 EDT, [facility]/pharmacy #[id number], Partial fill upon patient request if the [...] 0, Tot. Refills 0, Maintenance, DX: JORDANA Barrios79.7HEIGHT- 5' WEIGHT- 175LBS LIFETIME NEED FAX: [phone], 02/03/21 14:22:00 EDT, Supply Start Date: 02/03/21 [...] 11 Refills, Maintenance, 11/28/20 13:19:00 EST, Aerosol, [facility]/pharmacy #[id number], Partial fill upon patient request if the prescription is for a schedule II opioid drug., 153, cm, 11/28/20 12:47:00 EST, Height, 79.6, kg,... Start Date: 11/28/20 Status: Ordered topiramate 25 mg oral tablet 2 tablet = 50 mg, By Mouth, 2 times a day, # 360 tablet, 1 Refills, Maintenance, 08/09/20 9:35:00 EDT, Tablet, [facility]/pharmacy #[id number], 153, cm, 08/05/20 13:58:00 EDT, Height, [...]
--- OUTSIDE RECORDS SUMMARY | 2023-08-13 20:26 | XMS_ITS | Continuity of Care Document ---
Author Name Unknown Organization [facility] Address [address] [place] [address]- Care Team Providers Care Metallurgical Engineering Technician Name Role Phone Polly QUACH, Estelle Charles Primary Care Physic gustavo Encounter [facility] Date(s): 09/30/21 - 10/30/21 [facility] [address] [place] [address]- Allergies, Adverse Reactions, Alerts Substance Reaction Severity [...] Refills, Maintenance, 08/31/21 20:13:00 EDT, [facility]/pharmacy #[id number], 153, cm, 08/21/21 11:10:00 EDT, Height, [...] EST, Route to Pharmacy Electronically, [facility]/pharmacy #[id number], 153, cm, 10/02/21 11:33:00 EST, Height, [...] Maintenance, 05/07/21 9:18:00 EDT, Tablet, [facility]/pharmacy #[id number], Partial fill upon patient request if [...] Start Date: 05/14/21 Status: Ordered [facility] VITAMIN D3 25 MCG SOFTGEL TAKE 1 [...] Refills, Maintenance, 12/10/20 17:49:00 EST, [id number], 153, cm, 12/10/20 15:22:00 EST, Height, 79.6, [...] 2 Refills, Maintenance, 10/03/21 15:17:00 EST, Nasal [place], [facility]/pharmacy #[id number], Partial fill upon patient request if [...] EDT, Route to Pharmacy Electronically, [facility]/pharmacy #[id number], 153, cm, 09/02/21 13:58:00 EDT, Height, 80, kg, 1... Start Date: 09/03/21 Status: Ordered ipratropium nasal 42 mcg/inh spray 2 sprays, Nares, Both, 3 times a day, # 15 mL, 11 Refills, Maintenance, 10/03/21 15:19:00 EST, [place], [facility]/pharmacy #[id number], 2 sprays Nares, Both 3 times a day, 153, cm, 10/02/21 11:33:00 EST, Height, 80, kg, 09/02/21 13:29:00 EDT, Dry Weight Start Date: 10/03/21 Status: Ordered ketoconazole 2% topical shampoo 1 application, Topically, Once, # 120 mL, 1 Refills, Soft Stop, 05/07/21 8:34:00 EDT, Shampoo, [facility]/pharmacy #[id number], 1 application Topically Once, 153, cm, 05/07/21 7:55:00 EDT, Height, 79.6, kg, 12/30/20 13:59:00 EST, Dry Weight Start Date: 05/07/21 Status: Ordered KlonoPIN 0.5 mg oral tablet 1 tablet = 0.5 mg, By Mouth, 2 times a day, # 56 tablet, 0 Refills, Maintenance, 09/03/21 9:37:00 EDT, Tablet, [facility]/pharmacy #[id number], 153, cm, 09/02/21 13:58:00 EDT, Height, 80, kg, 09/02/21 13:29:00 EDT, Dry Weight Start Date: 09/03/21 Stop Date: 10/01/21 Status: Ordered lidocaine 1.8% topical film 1 patch, Topically, Daily, leave on up to 12 hours, # 30 each, 11 Refills, Maintenance, 02/22/20 9:39:00 EDT, Film, [facility]/pharmacy #[id number], 1 patch Topically Daily,Instr:leave on up to 12 hours, 153, cm,02/01/20 9:49:00 EDT, Height, 89.6, kg, 12/26/19 19... Start Date: 02/22/20 Status: Ordered Linzess 290 mcg oral capsule 1 capsule = 290 mcg, By Mouth, Daily, TAKE 1 CAPSULE BY MOUTH EVERY DAY, # 90 capsule, 0 Refills, Maintenance, 10/03/21 15:14:00 EST, Capsule, [facility]/pharmacy #[id number], Partial fill upon patient request ifthe [...] EST, Supply Start Date: 10/03/21 Status: Ordered Locust 0.65% nasal spray 2 sprays, Nares, Both, 4 times a day, # 1 each, 0 Refills, Maintenance, 06/23/21 9:54:00 EDT, [facility]/pharmacy #[id number], Partial fill upon patient request if the prescription is for a schedule II opioid drug., 2 sprays Nares, Both 4 times a day, 153, cm, 08/... Start Date: 06/23/21 Status: Ordered omeprazole 20 mg oral delayed release tablet 1 tablet = 20 mg, By Mouth, Daily, # 90 tablet, 0 Refills, Maintenance, 10/03/21 15:20:00 EST, EC Tablet, [facility]/pharmacy #[id number], 153, cm, 10/02/21 11:33:00 EST, Height, 80, kg, 09/02/21 13:29:00 EDT, Dry Weight Start Date: 10/03/21 Stop Date: 01/01/22 Status: Ordered ondansetron 4 mg oral tablet 1 tablet = 4 mg, By Mouth, Every 8 hours, PRN as needed for nausea/vomiting, # 15 tablet, 0 Refills, Maintenance, 10/03/21 15:20:00 EST, Tablet, [facility]/pharmacy #[id number], Partial fill upon patient request if [...] Refills, Maintenance, 10/03/21 15:21:00 EST, [facility]/pharmacy #[id number], 90, INJECT 1MG INTO THE SKIN WEEKLY, 153, cm, 10/02/21 11:33:00 EST,Height, 80, kg, 09/02/21 13:29:00 EDT, Dry Weight Start Date: 10/03/21 Status: Ordered Paragard IUD Maintenance, 05/05/19 10:52:19 EDT, Compound Start Date: 05/05/19 Status: Ordered PEG-3350 with Electrolytes ([id number]) oral powder for reconstitution See Instructions, as directed, # 1 each, 0 Refills, Maintenance, 12/26/20 14:56:00 EST, [id number], Ok to substitute [...] M79.7HEIGHT- 5' WEIGHT- 175LBS LIFETIME NEED FAX: [phone], 02/03/21 14:22:00 EDT, Supply Start Date: 02/03/21 [...] Maintenance, 11/28/20 13:19:00 EST, Aerosol, [facility]/pharmacy #[id number], Partial fill upon patient request if the prescription is for a schedule II opioid drug., 153, cm, 11/28/20 12:47:00 EST, Height, 79.6, kg,... Start Date: 11/28/20 Status: Ordered topiramate 25 mg oral tablet 2 tablet, By Mouth, 2 times a day, # 360 tablet, 1 Refills, [id number], 153, cm, 08/21/21 11:10:00 EDT, Height, 79.6, [...]
--- OUTSIDE RECORDS SUMMARY | 2023-08-13 20:26 | XMS_ITS | Continuity of Care Document ---
Author Name Unknown Organization [facility] Adult Address [address] [place] [address]- Care Team Providers Care Chemist Proteins Name Role Phone Loreta Morales NP Primary Care Physician [phone] [facility] Date(s): 11/19/22 - 11/26/22 [facility] [address] [place] [id number]- Encounter Diagnosis Bipolar disease, chronic(Discharge Diagnosis) - 11/19/22 DM (diabetes mellitus), type 2(Discharge Diagnosis) - 11/19/22 Asthma, moderate persistent(Discharge Diagnosis) - 11/19/22 ASCUS with positive high risk HPV cervical(Discharge Diagnosis) - 11/19/22 Chronic back pain(Discharge Diagnosis) - 11/19/22 Chronic pain disorder/fibromyalgia(Discharge Diagnosis) - 11/19/22 Migraine(Discharge Diagnosis) - 11/19/22 Encounter to establish care(Discharge Diagnosis) - 11/19/22 Attending Physician: Not on Staff, Attending MD Referring Physician: Loreta Morales NP Allergies, Adverse Reactions, Alerts Substance Reaction [...] 1 Refills, Maintenance, 05/14/21 13:11:00 EDT, Capsule, [facility]/pharmacy #[id number], 1 capsule By Mouth Every 6 [...] mL, 0 Refills, Maintenance, 08/31/21 20:13:00 EDT, [id number], 153, cm, 08/21/21 11:10:00 EDT, Height, [...] 10/03/21 15:12:00 EST, Route to Pharmacy Electronically, [facility]/pharmacy #[id number], 153, cm, 10/02/21 11:33:00 EST, [...] 13:59:00 EST,... Start Date: 05/14/21 Status: Ordered [facility] VITAMIN D3 25 MCG SOFTGEL TAKE 1 CAPSULE BY MOUTH EVERY DAY Start Date: 05/07/21 Status: Ordered DIABETIC SHOES with inserts DIABETIC SHOES with inserts, See Instructions, # 1 each, Refills 1, Tot. Refills 1, Maintenance, DX: DM E11.9 Soumya Leonid , 10/03/21 17:31:00 EST, Compound Start Date: [...] Refills, Maintenance, 12/10/20 17:49:00 EST, [id number], 153, cm, 12/10/20 15:22:00 EST, Height, 79.6, [...] 1 each, 1 Refills, Maintenance, 10/03/21 15:21:00EST, [facility]/pharmacy #[id number], 153, cm, 10/02/21 11:33:00 EST, [...] 2 Refills, Maintenance, 10/03/21 15:17:00 EST, Nasal [place], [facility]/pharmacy #[id number], Partial fill upon patient request [...] 09/03/21 13:19:00 EDT, Route to Pharmacy Electronically, [facility]/pharmacy #[id number], 153, cm, 09/02/21 13:58:00 EDT, Height, 80, kg, 1... Start Date: 09/03/21 Status: Ordered ipratropium nasal 42 mcg/inh spray 2 sprays, Nares, Both, 3 times a day, # 15 mL, 11 Refills, Maintenance, 10/03/21 15:19:00 EST, [place], [facility]/pharmacy #[id number], 2 sprays Nares, Both 3 times a day, 153, cm, 10/02/21 11:33:00 EST, Height, 80, kg, 09/02/21 13:29:00 EDT, Dry Weight Start Date: 10/03/21 Status: Ordered ketoconazole 2% topical shampoo 1 application, Topically, Once, # 120 mL, 1 Refills, Soft Stop, 05/07/21 8:34:00 EDT, Shampoo, [facility]/pharmacy #[id number], 1 application Topically Once, 153, cm, 05/07/21 7:55:00 EDT, Height, 79.6, kg, 12/30/20 13:59:00 EST, Dry Weight Start Date: 05/07/21 Status: Ordered lidocaine 1.8% topical film 1 patch, Topically, Daily, leave on up to 12 hours, # 30 each, 11 Refills, Maintenance, 02/22/20 9:39:00 EDT, Film, [facility]/pharmacy #[id number], 1 patch Topically Daily,Instr:leave on up to 12 hours, 153, cm,02/01/20 9:49:00 EDT, Height, 89.6, kg, 12/26/19 19... Start Date: 02/22/20 Status: Ordered Linzess 290 mcg oral capsule 1 capsule = 290 mcg, By Mouth, Daily, TAKE 1 CAPSULE BY MOUTH EVERY DAY, # 90 capsule, 0 Refills, Maintenance, 10/03/21 15:14:00 EST, Capsule, [facility]/pharmacy #[id number], Partial fill upon patient request [...] Wheezing/Shortness of Breath, Dx asthma J45.9 Soumya Jaquze, 10/03/21 17:45:00 EST, Supply Start Date: 10/03/21 Status: Ordered Adair 0.65% nasal spray 2 sprays, Nares, Both, 4 times a day, # 1 each, 0 Refills, Maintenance, 06/23/21 9:54:00 EDT, [facility]/pharmacy #[id number], Partial fill upon patient request if the prescription is for a schedule II opioid drug., 2 sprays Nares, Both 4 times a day, 153, cm, ... Start Date: 06/23/21 Status: Ordered omeprazole 20 mg oral delayed release tablet 1 tablet = 20 mg, By Mouth, Daily, # 90 tablet, 0 Refills, Maintenance, 10/03/21 15:20:00 EST, EC Tablet, [facility]/pharmacy #[id number], 153, cm, 10/02/21 11:33:00 EST, Height, 80, kg, 09/02/21 13:29:00 EDT, Dry Weight Start Date: 10/03/21 Stop Date: 01/01/22 Status: Ordered ondansetron 4 mg oral tablet 1 tablet = 4 mg, By Mouth, Every 8 hours, PRN as needed for nausea/vomiting, # 15 tablet, 0 Refills, Maintenance, 10/03/21 15:20:00 EST, Tablet, [facility]/pharmacy #[id number], Partial fill upon patient request if the prescription is for a schedule II opioid drug... Start Date: 10/03/21 Stop Date: 10/08/21 Status: Ordered Ozempic 2 mg/1.5 mL (1 mg dose) subcutaneous solution See Instructions, INJECT 1MG INTO THE SKIN WEEKLY, # 9 Unknown, 1 Refills, Maintenance, 10/03/21 15:21:00 EST, [facility]/pharmacy #[id number], 90, INJECT 1MG INTO THE SKIN WEEKLY, 153, cm, 10/02/21 11:33:00 EST,Height, 80, kg, 09/02/21 13:29:00 EDT, Dry Weight Start Date: 10/03/21 Status: Ordered Paragard IUD Maintenance, 05/05/19 10:52:19 EDT, Compound Start Date: 05/05/19 Status: Ordered PEG-3350 with Electrolytes (Eqv-NuLYTELY) oral powder for reconstitution See Instructions, as directed, # 1 each, 0 Refills, Maintenance, 12/26/20 14:56:00 EST, [facility], Ok to substitute for ANY [...] M79.7HEIGHT- 5' WEIGHT- 175LBS LIFETIME NEED FAX: [phone], 02/03/21 14:22:00 EDT, Supply Start Date: 02/03/21 [...] 11 Refills, Maintenance, 11/28/20 13:19:00 EST, Aerosol, [facility]/pharmacy #[id number], Partial fill upon patient request if the prescription is for a schedule II opioid drug., 153, cm, 11/28/20 12:47:00 EST, Height, 79.6, kg,... Start Date: 11/28/20 Status: Ordered topiramate 25 mg oral tablet 2 tablet, By Mouth, 2 times a day, # 360 tablet, 1 Refills, [facility], 153, cm, 08/21/21 11:10:00 EDT, Height, 79.6, [...] 0 Refills, Maintenance, 01/29/22 17:00:00 EST, Tablet, [facility]/pharmacy #[id number], 153, cm, 10/02/21 11:33:00 EST, Height, [...] Active Encounter to establish care Confirmed Active Polypharmacy Confirmed Active PTSD (post-traumatic [...] Service Informant Bipolar disease, chronic Discharge Diagnosis 11/19/22 DM (diabetes mellitus), type 2 Discharge Diagnosis 11/19/22 Asthma, moderate persistent Discharge Diagnosis 11/19/22 ASCUS with positive high risk HPV cervical Discharge Diagnosis 11/19/22 Chronic back pain Discharge Diagnosis 11/19/22 Chronic pain disorder/fibromya lgia Discharge Diagnosis 11/19/22 Migraine Discharge Diagnosis 11/19/22 Encounter to establish care Discharge Diagnosis 11/19/22 Vital Signs Most recent to oldest [Reference Range]: 1 Height 153 cm (11/19/22 10:04 AM) Weight 77 kg (11/19/22 10:04 AM) Oxygen Saturation [94-100 %] 98 % (11/19/22 10:04 AM) Pulse Rate [55-90 bpm] 93 bpm *H* (11/19/22 10:04 AM) Body Mass Index [18.5-24.99 kg/m2] 32.89 kg/m2 *>HHI* (11/19/22 10:04 AM) Blood Pressure [90-138/55-84 mm Hg] 116/ 80mm Hg (11/19/22 10:04 AM) Temperature [96.8-100.4 DegF] 99 DegF (11/19/22 10:04 AM) Mode of Delivery (Oxygen) Room air (11/19/22 10:04 AM) Blood pressure sites Arm, right (11/19/22 10:04 AM) Temperature Route Temporal (11/19/22 10:04 AM) Weight Obtained Via Patient/family state d (11/19/22 10:04 AM) Social History Social History Type Response Smoking Status Never (less than 100 in lifetime);Never entered on: 03/24/21 Sex Note * Aliyah Silver: PERFORM, SIGN, VERIFY Event Display: Patient Education/Instruction Authored Date: [facility] Clinical Summary Name VINEET SANTIAGO Age 42 Years 1980 PCP Andrew COREAS, [id number] Visit Date 11/19/2022 09:57:00 Additional Instructions: Scheduled Appointments?? Future Appointments ?*[facility] [address],??[address] ?Phone:??--?Fax:??-- ?Appt. Date:??12/01/2022?11:40 AM ?Scheduled Provider:??Loreta Morales NP Follow-Up Instructions ?? Diagnosis Bipolar disorder, unspecified; Type 2 diabetes mellitus without complications; Atypical squamous cells of undetermined significance on cytologic smear of cervix (ASC-US); Migraine, unspecified, not intractable, without status migrainosus; Persons encountering health services in other specified circu mstances; Moderate persistent asthma, uncomplicated; Dorsalgia, unspecified; Chronic pain syndrome Medications: Please continue your medications until treatment is completed or stopped by your provider. Discuss any questions related to medications with your provider. Medications to Continue with No Changes These medications were not printed or sent to your pharmacy Acetaminophen (Tylenol 325 mg oral tablet) 3 tab(s) Oral 3 times a day as needed Headache. not to exceed 4000 mg/day. Next Dose: Acetaminophen/Butalbital/Caffeine (acetaminophen/butalbital/caffeine 300 mg-50 mg-40 mg oral capsule) 1 capsule Oral every 6 hours. not to exceed 6 capsules/day. Refills: 1. Next Dose: Acetaminophen/Butalbital/Caffeine (acetaminophen/butalbital/caffeine 300 mg-50 mg-40 mg oral capsule) TAKE 1 CAPSULE BY MOUTH EVERY 6 HOURS , NOT TO EXCEED 6 CAPS A DAY. Next Dose: Albuterol (albuterol 0.083% inhalation solution) TAKE 1 VIAL VIA NEBULZIER EVERY 6 HOURS. Refills: 0. Next Dose: Carbamazepine (carBAMazepine 100 mg oral tablet, extended release) 2 tab(s) Oral twice a day for 90Days. Refills: 1. Next Dose: Cholecalciferol (Vitamin D3 1000 intl units oral capsule) 1 capsule Oral Daily. Refills: 3. Next Dose: Clindamycin (clindamycin 300 mg oral capsule) TAKE 1 CAPSULE BY MOUTH EVERY 6 HOURS FOR 10 DAYS. Next Dose: Clonazepam (clonazePAM 0.5 mg oral tablet) 1 tab(s) Oral twice a day. Refills: 0. Next Dose: Clonazepam (KlonoPIN 0.5 mg oral tablet) 1 tab(s) Oral twice a day for 28 Days. Refills: 0. Next Dose: Docusate (docusate sodium 100 mg oral capsule) 1 capsule Oral twice a day as needed NEEDED FOR CONSTIPATION. Refills: 5. Next Dose: Duloxetine (duloxetine 60 mg oral enteric coated capsule) 1 capsule Oral twice a day. Refills: 1. Next Dose: Durable Medical Equipment (Aerochamber) use with mdi. Refills: 11. Next Dose: Durable Medical Equipment (Alcohol Wipes) DX: DM E11.9 HEIGHT- 5' WEIGHT- 175LBS LIFETIME NEED . Refills: 11. Next Dose: Durable Medical Equipment (Automatic Sleeve Pumps) for both right and left legs Dx Fibromyalgia M79.7 Soumya Jaquez. Refills: 0. Next Dose: Durable Medical Equipment (Bedpads) [facility] M79.7 HEIGHT- 5' WEIGHT- 175LBS LIFETIME NEED . Refills: 11. Next Dose: Durable Medical Equipment (Compression Stockings) surgical, thigh high length 20-30 mm Hg Dx. varicose veins, bilateral leg pain. Refills: 2. Next Dose: Durable Medical Equipment (Diapers) LARGE PT USES 6 PER DAY [facility] M79.7 HEIGHT- 5' WEIGHT- 175LBS LIFETIME NEED dx n39.46 Soumya Jaquez. Refills: 11. Next Dose: Durable Medical Equipment (Freestyle Flash Glucose Meter) dx: DM E11.9 Soumya Jaquez. Refills: 0. Next Dose: Durable Medical Equipment (Freestyle Lite Lancets) E11.9 PT TESTS TID. Refills: 5. Next Dose: Durable Medical Equipment (Freestyle Lite Monitor) DX E11.9 DM2 TEST 3 TIMES A DAY. Refills: 0. Next Dose: Durable Medical Equipment (Freestyle Lite Test Strips) DX DM 2 E11.9 TEST 3 TIMES A DAY. Refills: 3. Next Dose: Durable Medical Equipment (Gloves) LARGE DX: JORDANA M79.7 HEIGHT- 5' WEIGHT- 175LBS LIFETIME NEED . Refills: 11. Next Dose: Durable Medical Equipment (Nebulizer tubing and mask or mouthpiece) Dx Asthma J45.9 Soumya Jaquez; as needed Wheezing/Shortness of Breath. Refills: 11. Next Dose: Durable Medical Equipment (Nebulizer/Compressor) Dx asthma J45.9 Soumya Jaquez; as needed Wheezing/Shortness of Breath. Refills: 0. Next Dose: Durable Medical Equipment (Paragard IUD) Next Dose: Durable Medical Equipment (PNEUMATIC PUMP AND SLEEVE) DX: JORDANA M79.7 HEIGHT- 5' WEIGHT- 175LBS LIFETIME NEED . Refills: 0. Next Dose: Durable Medical Equipment (RECLINER) DX: JORDANA M79.7 HEIGHT- 5' WEIGHT- 175LBS LIFETIME NEED FAX: [phone]. Refills: 0. Next Dose: Durable Medical Equipment (Transfer Wheelchair) Dx Fibromyalgia M79.7 Soumya Jaquez. Refills: 0. Next Dose: Epinephrine (EpiPen 2-Freeman 0.3 mg injectable kit) Intramuscular Once. Refills: 0. Next Dose: Fluticasone Nasal (Flonase 50 mcg/inh nasal spray) 2 spray(s) Nares, Both Daily for 30 Days. Refills: 2. Next Dose: formoterol-mometasone (Dulera 200 mcg-5 mcg/inh inhalation aerosol) 2 puff(s) Inhalation twice a day. Refills: 3. Next Dose: galcanezumab (Emgality Prefilled Pen 120 mg/mL subcutaneous solution) 120 Milligram Subcutaneous Infusion Every 28 days. Refills: 1. Next Dose: Ibuprofen (ibuprofen 600 mg oral tablet) 1 tab(s) Oral twice a day. with food Soumya Quiniones. Refills: 1. Next Dose: Ipratropium Nasal (ipratropium nasal 42 mcg/inh spray) 2 spray(s) Nares, Both 3 times a day. Refills: 11. Next Dose: Ketoconazole (ketoconazole 2% topical shampoo) 1 antony Topically once. Refills: 1. Next Dose: Lidocaine Topical (lidocaine 1.8% topical film) 1 patch(es) Topically Daily. leave on up to 12 hours. Refills: 11. Next Dose: linaclotide (Linzess 290 mcg oral capsule) 1 capsule Oral Daily for 90 Days. TAKE 1 CAPSULE BY MOUTH EVERY DAY. Refills: 0. Next Dose: Miscellaneous Rx (Boost plus protein shake) Dx. failure to thrive in adult Soumya Jaquez. Refills: 5. Next Dose: Miscellaneous Rx (circulatoin boots) 1 pair circulation boots Dx. bilateral lower extremity edema, poor circulation. Refills: 0. Next Dose: Miscellaneous Rx ([facility] VITAMIN D3 25 MCG SOFTGEL) TAKE 1 CAPSULE BY MOUTH EVERY DAY. Next Dose: Miscellaneous Rx (DIABETIC SHOES with inserts) DX: DM E11.9 Soumya Jaquez . Refills: 1. Next Dose: Miscellaneous Rx (Espinoza lift) DX: FIBROMYALGIA M79.7 WEIGHT 197LBS HEIGHT 5' LIFETIME NEEDS. Refills: 0. Next Dose: Miscellaneous Rx (PULL UPS) LARGE PT USES 4 PER DAY DX: JORDANA M79.7 HEIGHT- 5' WEIGHT- 175LBS LIFETIME NEED dx N39.46. Refills: 11. Next Dose: Miscellaneous Rx (READY BATH WIPES) DX: JORDANA M79.7 HEIGHT- 5' WEIGHT- 175LBS LIFETIME NEED . Refills: 11. Next Dose: Miscellaneous Rx (see below) Walker Injured hip.. Refills: 0. Next Dose: Miscellaneous Rx (SMALL COMRESSION GLOVES) DX: Fibromyalgia Soumya Jaquez. Refills: 0. Next Dose: Miscellaneous Rx (WIPES) DX: JORDANA M79.7 HEIGHT- 5' WEIGHT- 175LBS LIFETIME NEED . Refills: 11. Next Dose: Omeprazole (omeprazole 20 mg oral delayed release tablet) 1 tab(s) Oral Daily for 90 Days. Refills:0. Next Dose: Ondansetron (ondansetron 4 mg oral tablet) 1 tab(s) Oral every 8 hours as needed as needed for nausea/vomiting for 5 Days. Refills: 0. Next Dose: Oxycodone (oxyCODONE 5 mg oral tablet) Next Dose: PEG Electrolyte Solution (PEG-3350 with Electrolytes (Eqv-NuLYTELY) oral powder for reconstitution)as directed. Refills: 0. Next Dose: semaglutide (Ozempic 2 mg/1.5 mL (1 mg dose) subcutaneous solution) INJECT 1MG INTO THE SKIN WEEKLY. Refills: 1. Next Dose: Sodium Chloride Nasal (Adair 0.65% nasal spray) 2 spray(s) Nares, Both 4 times a day. Refills: 0. Next Dose: Tiotropium (Spiriva Respimat 1.25 mcg/inh inhalation aerosol) 2 puff(s) Inhalation Daily. Refills: 11. Next Dose: Topiramate (topiramate 25 mg oral tablet) 2 tab(s) Oral twice a day. Refills: 1. Next Dose: Zolpidem (zolpidem 5 mg oral tablet) 1 tab(s) Oral Daily at Bedtime as needed as needed for insomnia for 28 Days. Refills: 0. Next Dose: Allergy Info:?? Lyrica; Other Food Allergy; Nuts; Bactrim; gabapentin; penicillin; doxycycline Medications Given This Visit Future Orders ?CBC? Order Date:11/19/22?- Complete on or after?11/19/22 ?Lipid Panel? Order Date:11/19/22?- Complete on or after?11/19/22 ?Hemoglobin A1C (Monitoring)? Order Date:11/19/22?- Complete on or after?11/19/22 ?Comprehensive Metabolic Panel? Order Date:11/19/22?- Complete on or after?11/19/22 Vital Signs Height 153 cm Weight 77 kg BMI 32.89 kg/m2 Blood Pressure 116 mm Hg/80 mm Hg Temperature 99 DegF Pulse Rate 93 bpm Respiratory Rate 02 Sat Mode of Delivery 98 %/Room air You can now view a summary of your hospital visit from the comfort of your home through a free online portal called [employer]. [employer] is a website that allows you to securely view your medical information including discharge summary, medications and follow-up visits. ??You can alsosend a secure electronic message to your doctor???s office to request appointments, renew medications or just ask a question. You can enroll at [email or web address] or register during your next office visit. Disclaimer:?? The information provided is of a general nature and is intended to be used in conjunction with the recommendations and advice of your health care practitioner. ??Every effort has been made to ensure that the information provided is accurate and complete at the time it is provided to you however, as your needs change, or, as new ??information becomes available, different or additional instructions may be required. If you have questions, please consult with your primary care provider or pharmacist, as appropriate. ??This information is not intended to serve as substitution for assessment and evaluation by a qualified health care provider. If you do not have a primary care provider, you may find a [facility] provider by calling [facility] [employer] at [phone]. For information about the plan of care including goals and instructions for your diagnosis, please see the patient education orders section of this document. Patient Education Materials?? The content of this educational material or handout may have been modified, supplemented, or adapted from its original content and format to support your individualized medical care. Patient Care team information Care Team Personnel Name: Kathy Mendoza RN [facility] RN Member Role: Primary Care Nurse Name: Luis COREAS, Nevin Baig Position: [facility] Associate Professional Member Role: Primary Care Nurse Address: Address: [address] [place] [address]- Name: Bradly Bucio Position: [facility] RN Member Role: Primary Care Nurse Name: Elana Silver RN Position: [facility] RN Member Role: Primary Care Nurse Name: Adriana Lamar RN Position: [facility] RN Member Role: Primary Care Nurse Name: Lory Gillis RN Position: [facility] RN Member Role: Primary Care Nurse Name: Levy Buenrostro RN Position: [facility] RN Member Role: Primary Care Nurse Name: Isabela Quiroz RN Position: [facility] Outreach Member Role: Primary Care Nurse Name: Keyanna Michaels RN Position: [facility] RN Member Role: Primary Care Nurse Name: Loreta Morales NP Position[facility] Associate Professional Member Role: PCP Address: Address: [address] [place] [address] [address] [place] [address]- Care Team Related Persons Name: JESSICA LAUREN Address: home [address] [place] [address] Name: LAUREN ALDANA Address: home [address] [place] [address]
--- OUTSIDE RECORDS SUMMARY | 2023-08-13 20:26 | XMS_ITS | Continuity of Care Document ---
Author Name Unknown Organization [facility] Address [address] [place] [address]- Care Team Providers Care Extractions Technologist Name Role Phone Courtney QUACH, Joe Carrion Primary Care Physician Encounter [facility] Date(s): 06/14/20 - 07/14/20 [facility] [address] [place] [address]- [facility] Allergies, Adverse Reactions, Alerts Substance Reaction Severity [...] 07/01/20 16:38:00 EDT, Route to Pharmacy Electronically, [facility]/pharmacy #[id number], 153, cm, 04/23/20 [...] 5 Refills, Maintenance, 05/01/20 16:21:00 EDT, Tablet, [facility]/pharmacy #0693, 153, cm, 04/23/20 [...] 60 capsule, 6 Refills, Maintenance, 04/23/20 15:15:00EDT, [facility]/pharmacy #0693, 153, cm, 04/23/20 14:32:00 EDT, Height, 89.6, kg, 12/26/19 19:50:00 EST, Dry Weight Start Date: 04/23/20 Status: Ordered Emgality Prefilled Pen 120 mg/mL subcutaneous solution = 120 mg, Subcutaneous Infusion, Every 28 days, # 1 each, 11 Refills, Maintenance, 07/03/20 14:17:00 EDT, [facility]/pharmacy #[id number], 1st dose broke [...] 06/25/20 17:13:00 EDT, Route to Pharmacy Electronically, [facility]/pharmacy #[id number], 153, cm, 04/23/20 14:32:00 EDT, Height, 89.6, kg,... Start Date: 06/25/20 Status: Ordered ipratropium nasal 42 mcg/inh spray 2 sprays, Nares, Both, 3 times a day, # 15 mL, 11 Refills, Maintenance, 01/09/20 10:37:00 EST, [place], [facility]/pharmacy #0693, 2 sprays Nares, Both 3 times a day, 153, cm, 01/09/20 9:49:00 EST, Height, 89.6, kg, 12/26/19 19:50:00 EST, Dry Weight Start Date: 01/09/20 Status: Ordered KlonoPIN 0.5 mg oral tablet 1 tablet = 0.5 mg, By Mouth, 2 times a day, # 14 tablet, 0 Refills, Maintenance, 04/17/20 12:00:00 EDT, Tablet, [facility]/pharmacy #[id number], 153, cm, 02/01/20 9:49:00 EDT, Height, 89.6, kg, 12/26/19 19:50:00 EST, Dry Weight Start Date: 04/17/20 Stop Date: 04/24/20 Status: Ordered lidocaine 1.8% topical film 1 patch, Topically, Daily, leave on up to 12 hours, # 30 each, 11 Refills, Maintenance, 02/22/20 9:39:00 EDT, Film, [facility]/pharmacy #[id number], 1 patch Topically [...]
--- OUTSIDE RECORDS SUMMARY | 2023-08-13 20:26 | XMS_ITS | Continuity of Care Document ---
Author Name Unknown Organization [facility] Address [address] [place] [id number]- Care Team Providers Care Housing And Residence Life Director Name Role Phone Courtney QUACH, Joe Carrion Primary Care Physician [phone] Encounter [facility] Date(s): 10/28/20 - 11/27/20 [facility] [address] [place] [address] Attending Physician: Admtr, Francisco Admitting Physician: Admtr, Ar8 Referring Physician: Admtr, Ar8 Allergies, Adverse Reactions, Alerts Substance Reaction Severity Status doxycycline Active penicillin 1 Active Nuts Anaphylactic reaction to food Active Lyrica Active gabapentin Active Bactrim Active Other Food Allergy 2 HONEY hives [...] 3 Refills, Maintenance, 02/05/20 11:51:00 EDT, Solution, [facility]/pharmacy #[id number], 153, cm, 02/01/20 9:49:00 EDT, Height, 89.6, kg, 12/26/19 19:50:00 EST, Dry Weight Start Date: 02/05/20 Status: Ordered carBAMazepine 100 mg oral tablet, extended release 200 mg, 2, tablet, By Mouth, 2 times a day, # 360 tablet, Refills 1, Tot. Refills 1, Maintenance, 07/01/20 16:38:00 EDT, Route to Pharmacy Electronically, [facility]/pharmacy #[id number], 153, cm, 04/23/20 [...] 5 Refills, Maintenance, 11/24/20 8:47:00 EST, Tablet, [facility], 153, cm, 11/23/20 20:48:00 EST, [...] capsule, 5 Refills, Maintenance, 08/24/20 9:47:00 EDT, [facility]/pharmacy #[id number], 153, cm, 08/14/20 14:22:00 EDT, Height, 89.6, kg, 12/26/19 19:50:00 EST, Dry Weight Start Date: 08/24/20 Status: Ordered Emgality Prefilled Pen 120 mg/mL subcutaneous solution = 120 mg, Subcutaneous Infusion, Every 28 days, # 1 each, 11 Refills, Maintenance, 07/03/20 14:17:00 EDT, [facility]/pharmacy #[id number], 1st dose broke [...] 07/21/20 23:30:00 EDT, Route to Pharmacy Electronically, [facility]/pharmacy #[id number], 153, cm, 07/09/20 13:32:00 EDT, Height, 89.6, kg,... Start Date: 07/21/20 Status: Ordered ipratropium nasal 42 mcg/inh spray 2 sprays, Nares, Both, 3 times a day, # 15 mL, 11 Refills, Maintenance, 01/09/20 10:37:00 EST, [place], [facility]/pharmacy #[id number], 2 sprays [...] capsule, 0 Refills, Maintenance, 11/05/20 10:00:00 EST, [id number], 153, cm, 08/28/20 15:44:00 EDT, Height, 89.6, kg, 12/26/19 19:50:00 EST, Dry Weight Start Date: 11/05/20 Status: Ordered metFORMIN 1000 mg oral tablet 1 tablet = 1,000 mg, By Mouth, 2 times a day, new fdose Soumya Jaquez, # 180 tablet, 1 Refills, Maintenance, 10/06/20 13:46:00 EST, Tablet, [facility]/pharmacy #[id number], 153, cm, 08/28/20 [...] 0 Refills, Maintenance, 11/24/20 14:17:00 EST, Tablet, [facility], Partial fill upon patient request if the prescription is for a schedule II opioi... Start Date: 11/24/20 Stop Date: 11/29/20 Status: Ordered oxyCODONE 5 mg oral capsule 1 capsule = 5 mg, By Mouth, Every 6 hours, PRN for pain, # 8 capsule, 0 Refills, Acute 11/28/20 9:00:00 EST, 11/24/20 8:46:00 EST, Capsule, [facility], Partial fill upon patient requestif the prescription is for a schedule II opioid adrianna... Start Date: 11/24/20 Stop Date: 11/28/20 Status: Ordered Ozempic (1 mg dose) 2 mg/1.5 mL subcutaneous solution = 1 mg, Subcutaneous Injection, Every week, # 3 mL, 11 Refills, Maintenance, 06/04/20 17:34:00 EDT,Solution, [facility]/pharmacy #[id number], 153, cm, 04/23/20 14:32:00 EDT, Height, 89.6, kg, 12/26/19 19:50:00 EST, Dry Weight Start Date: 06/04/20 Status: Ordered Paragard IUD Maintenance, 05/05/19 10:52:19 EDT, Compound Start Date: 05/05/19 Status: Ordered predniSONE 20 mg oral tablet 1 tablet = 20 mg, By Mouth, Daily, with food or milk, # 10 tablet, 0 Refills, Maintenance, 08/05/2017:11:00 EDT, [facility]/pharmacy #[id number], 153, cm, 08/05/20 [...] suppurativa(Confirmed) Active Hx of cholecystectomy(Confirmed) 11/23/20 Active Major depression(Confirmed) Active Migraine(Confirmed) Active Erosion [...]
--- OUTSIDE RECORDS SUMMARY | 2023-08-13 20:26 | XMS_ITS | Continuity of Care Document ---
Author Name Unknown Organization [facility] ter Address [address] [place] [id number]- Care Team Providers Care Director Of Cardiac Cath Lab Name Role Phone Joe Valdez MD Primary Care Physician [place] [facility] [place] 09/30/20 - 01/09/[address] [address]- Attending Physician: Joe Valdez MD Admitting Physician: Joe Valdez MD Referring Physician: Joe Valdez MD Allergies, Adverse Reactions, Alerts Substance Reaction Severity Status doxycycline Active penicillin 1 Active gabapentin Active Lyrica Active Bactrim Active Nuts Anaphylactic reaction to [...] 3 Refills, Maintenance, 02/05/20 11:51:00 EDT, Solution, [facility]/pharmacy #[id number], 153, cm, 02/01/20 9:49:00 EDT, Height, 89.6, kg, 12/26/19 19:50:00 EST, Dry Weight Start Date: 02/05/20 Status: Ordered carBAMazepine 100 mg oral tablet, extended release 200 mg, 2, tablet, By Mouth, 2 times a day, # 360 tablet, Refills 1, Tot. Refills 1, Maintenance, 07/01/20 16:38:00 EDT, Route to Pharmacy Electronically, [facility]/pharmacy #[id number], 153, cm, 04/23/20 [...] Refills, Maintenance, 12/10/20 17:49:00 EST, [facility], 153, cm, 12/10/20 15:22:00 EST, Height, 79.6, kg, 11/21/20 21:34:00 EST, Dry Weight Start Date: 12/10/20 Status: Ordered Dulera 200 mcg-5 mcg/inh inhalation aerosol 2 puffs, Inhalation, 2 times a day, Soumya Jaquez, # 13 Gm, 3 Refills, Maintenance, 09/19/19 13:54:11 EDT, Aerosol, 2 puffs Inhalation 2 times a day,Instr:Soumya Leonid Start Date: 09/19/19 Status: Ordered duloxetine 60 [...] 11 Refills, Maintenance, 01/09/20 10:37:00 EST, [place], [facility]/pharmacy #[id number], 2 sprays Nares, Both 3 times a day, 153, cm, 01/09/20 9:49:00 EST, Height, 89.6, kg, 12/26/19 19:50:00 EST, Dry Weight Start Date: 01/09/20 Status: Ordered KlonoPIN 0.5 mg oral tablet 1 tablet = 0.5 mg, By Mouth, 2 times a day, # 60 tablet, 0 Refills, Maintenance, 12/26/20 12:54:00 EST, Tablet, [facility]/pharmacy #[id number], 153, cm, 12/11/20 16:00:00 EST, [...] capsule, 0 Refills, Maintenance, 01/06/21 15:57:00 EST, [facility]/pharmacy #[id number], 153, cm, 01/01/21 [...] 0 Refills, Maintenance, 11/24/20 14:17:00 EST, Tablet, [facility], Partial fill upon patient [...] each, 0 Refills, Maintenance, 12/26/20 14:56:00 EST, [facility], Ok to substitute [...]
--- OUTSIDE RECORDS SUMMARY | 2023-08-13 20:26 | XMS_ITS | Continuity of Care Document ---
Author Name Unknown Organization [facility] Address [address] [place] [address]- Care Team Providers Care Administrative Accountant Name Role Phone Courtney QUACH, Joe Carrion Primary Care Physician [phone] Encounter [facility] Date(s): 05/29/20 - 06/28/20 [facility] [address] [address]- [facility] Allergies, Adverse Reactions, Alerts Substance Reaction [...] tablet, Refills 2, Tot. Refills 2, Maintenance, 04/11/20 10:00:00 EDT, Route to Pharmacy Electronically, [facility]/pharmacy #[id number], 153, cm, 02/01/20 9:49:00 EDT, Height, 89.6, kg, 12/26/19 19:50:00 EST, Dry... Start Date: 04/11/20 Status: Ordered clindamycin 150 mg oral capsule 1 capsule = 150 mg, By Mouth, Every 6 hours, for 7 days, stop if diarrhea, # 28 capsule, 0 Refills,Acute 07/04/20 13:33:00 EDT, 06/27/20 13:33:00 EDT, Capsule, [facility]/pharmacy #[id number], 153, cm, 04/23/20 14:32:00 EDT, Height, 89.6, kg, 12/26/19 19:50:00 ES... Start Date: 06/27/20 Stop Date: 07/04/20 Status: Ordered diabetic shoes diabetic shoes, See [...] 5 Refills, Maintenance, 05/01/20 16:21:00 EDT, Tablet, [facility]/pharmacy #[id number], [...] 60 capsule, 6 Refills, Maintenance, 04/23/20 15:15:00EDT, [facility]/pharmacy #[id number], 153, cm, 04/23/20 14:32:00 EDT, Height, 89.6, kg, 12/26/19 19:50:00 EST, Dry Weight Start Date: 04/23/20 Status: Ordered Emgality Prefilled Pen 120 mg/mL subcutaneous solution = 120 mg, Subcutaneous Infusion, Every 28 days, First injection given in office, patient supplied meds. Two injections given per order one to each arm subcutaneously. Patient tolerated well. [facility] [id number] EXP 11/2020 LOT [id number] [facility] [id number]... Start Date: 06/02/19 Status: Ordered EpiPen 2-Freeman [...] 06/25/20 17:13:00 EDT, Route to Pharmacy Electronically, [facility]/pharmacy #[id number], 153, cm, 04/23/20 14:32:00 EDT, Height, 89.6, kg,... Start Date: 06/25/20 Status: Ordered ipratropium nasal 42 mcg/inh spray 2 sprays, Nares, Both, 3 times a day, # 15 mL, 11 Refills, Maintenance, 01/09/20 10:37:00 EST, [place], [facility]/pharmacy #[id number], 2 sprays Nares, Both 3 times a day, 153, cm, 01/09/20 9:49:00 EST, Height, 89.6, kg, 12/26/19 19:50:00 EST, Dry Weight Start Date: 01/09/20 Status: Ordered KlonoPIN 0.5 mg oral tablet 1 tablet = 0.5 mg, By Mouth, 2 times a day, # 14 tablet, 0 Refills, Maintenance, 04/17/20 12:00:00 EDT, Tablet, [facility]/pharmacy #[id number], [...] Tablet Start Date: 05/26/19 Status: Ordered Ozempic (1 mg dose) 2 [...] 1 Refills, Maintenance, 06/04/20 7:22:00 EDT, Tablet, [facility]/pharmacy #[id number], 153, cm, 04/23/20 14:32:00 EDT, Height, 89.6, kg, 12/26/19 19:50:00 EST, Dry Weight Start Date: 06/04/20 Status: Ordered zolpidem 5 mg oral tablet 1 tablet = 5 mg, By Mouth, Daily at bedtime, PRN as needed for insomnia, needs ov for further refills, # 7 tablet, 0 Refills, Maintenance, 06/14/20 11:30:00 EDT, Tablet, [facility]/pharmacy #[id number], 153, cm, 04/23/20 14:32:00 EDT, Height, [...]
--- OUTSIDE RECORDS SUMMARY | 2023-08-13 20:26 | XMS_ITS | Continuity of Care Document ---
Author Name Unknown Organization [facility] Address [address] [place] [address]- Care Team Providers Care Cook Jelly Name Role Phone Courtney QUACH, Joe Carrion Primary Care Physician Encounter [facility] Date(s): 02/03/21 - 03/05/21 [facility] [address] [place] [address]- Allergies, Adverse Reactions, Alerts Substance Reaction Severity [...] 3 Refills, Maintenance, 02/05/20 11:51:00 EDT, Solution, [facility]/pharmacy #[id number], 153, cm, 02/01/20 9:49:00 EDT, Height, [...] 01/29/21 15:01:00 EST, Route to Pharmacy Electronically, [facility]/pharmacy #[id number], 153, cm, 01/01/21 8:33:00 EST, Height, 79.6, kg, 12/30/20 13:59:00 EST, Dry... Start Date: 01/29/21 Stop Date: 07/28/21 Status: Ordered clindamycin 300 mg oral capsule 1 capsule = 300 mg, By Mouth, Every 6 hours, for 10 days, # 40 capsule, 0 Refills, Acute 03/15/21 11:44:00 EDT, 03/05/21 11:44:00 EDT, Capsule, [facility]/pharmacy #[id number], Partial fill upon patient request if the prescription is for a schedule II opioid drug.... Start Date: 03/05/21 Stop Date: 03/15/21 Status: Ordered DIABETIC SHOES with inserts DIABETIC SHOES with inserts, See Instructions, # 1 each, Refills 1, Tot. Refills 1, Maintenance, DX: DM E11.9 Soumyamarcos Murphys , 02/03/21 14:20:00 EDT, Compound Start Date: [...] Refills, Maintenance, 12/10/20 17:49:00 EST, [facility], 153, cm, 12/10/20 15:22:00 EST, Height, 79.6, [...] Refills, Soft Stop, 12/13/20 11:33:00 EST, Tablet,[facility], Partial fill upon patient request if the [...] 07/21/20 23:30:00 EDT, Route to Pharmacy Electronically, [facility]/pharmacy #[id number], 153, cm, 07/09/20 13:32:00 EDT, Height, 89.6, kg,... Start Date: 07/21/20 Status: Ordered ipratropium nasal 42 mcg/inh spray 2 sprays, Nares, Both, 3 times a day, # 15 mL, 11 Refills, Maintenance, 01/09/20 10:37:00 EST, [place], [facility]/pharmacy #[id number], 2 sprays Nares, Both 3 times a day, 153, cm, 01/09/20 9:49:00 EST, Height, 89.6, kg, 12/26/19 19:50:00 EST, Dry Weight Start Date: 01/09/20 Status: Ordered KlonoPIN 0.5 mg oral tablet 1 tablet = 0.5 mg, By Mouth, 2 times a day, # 60 tablet, 0 Refills, Maintenance, 02/18/21 9:54:00 EDT, Tablet, [facility]/pharmacy #[id number], 153, cm, 01/29/21 15:33:00 EST, Height, 79.6, kg, 12/30/20 13:59:00 EST, Dry Weight Start Date: 02/18/21 Status: Ordered lidocaine 1.8% topical film 1 patch, Topically, Daily, leave on up to 12 hours, # 30 each, 11 Refills, Maintenance, 02/22/20 9:39:00 EDT, Film, [facility]/pharmacy #[id number], 1 patch Topically Daily,Instr:leave on up to 12 hours, 153, cm,02/01/20 9:49:00 EDT, Height, 89.6, kg, 12/26/19 19... Start Date: 02/22/20 Status: Ordered metFORMIN 1000 mg oral tablet 1 tablet = 1,000 mg, By Mouth, 2 times a day, new fdose Soumya Jaquez, # 180 tablet, 1 Refills, Maintenance, 10/06/20 13:46:00 EST, Tablet, [facility]/pharmacy #[id number], 153, cm, 08/28/20 15:44:00 EDT, Height, 89.6, kg, 12/26/19 19:50:00 EST, Dry Weight Start Date: 10/06/20 Status: Ordered omeprazole 20 mg oral delayed release tablet 1 tablet = 20 mg, By Mouth, Daily, # 90 tablet, 0 Refills, Maintenance, 09/29/20 16:38:00 EST, EC Tablet, [facility]/pharmacy #[id number], 153, cm, 08/28/20 15:44:00 EDT, Height, 89.6, kg, 12/26/19 19:50:00 EST, Dry Weight Start Date: 09/29/20 Stop Date: 12/28/20 Status: Ordered ondansetron 4 mg oral tablet 1 tablet = 4 mg, By Mouth, Every 8 hours, PRN as needed for nausea/vomiting, # 15 tablet, 0 Refills, Maintenance, 11/24/20 14:17:00 EST, Tablet, [facility], Partial fill upon patient request if the prescription is for a schedule II opioi... Start Date: 11/24/20 Stop Date: 11/29/20 Status: Ordered Ozempic (1 mg dose) 2 mg/1.5 mL subcutaneous solution = 1 mg, Subcutaneous Injection, Every week, # 3 mL, 11 Refills, Maintenance, 06/04/20 17:34:00 EDT,Solution, [facility]/pharmacy #[id number], 153, cm, 04/23/20 14:32:00 EDT, Height, 89.6, kg, 12/26/19 19:50:00 EST, Dry Weight Start Date: 06/04/20 Status: Ordered Paragard IUD Maintenance, 05/05/19 10:52:19 EDT, Compound Start Date: 05/05/19 Status: Ordered PEG-3350 with Electrolytes (Eqv-NuLYTELY) oral powder for reconstitution See Instructions, as directed, # 1 each, 0 Refills, Maintenance, 12/26/20 14:56:00 EST, [facility], Ok to substitute for ANY gallon prep, as directed, 153, cm, 12/11/20 16:00:00 EST, Height, 79.6, kg, 11/21/20 21:34:00 EST, Dry Weight Start Date: 12/26/20 Status: Ordered plecanatide 3 mg oral tablet 1 tablet = 3 mg, By Mouth, Daily, # 30 tablet, 0 Refills, Maintenance, 02/14/21 11:40:00 EDT, [facility]/pharmacy #0693, Partial fill upon patient request if [...] M79.7HEIGHT- 5' WEIGHT- 175LBS LIFETIME NEED FAX: [phone], 02/03/21 14:22:00 EDT, Supply Start Date: 02/03/21 [...] 11 Refills, Maintenance, 11/28/20 13:19:00 EST, Aerosol, [facility]/pharmacy #[id number], Partial fill upon patient request if the prescription is for a schedule II opioid drug., 153, cm, 11/28/20 12:47:00 EST, Height, 79.6, kg,... Start Date: 11/28/20 Status: Ordered topiramate 25 mg oral tablet 2 tablet, By Mouth, 2 times a day, # 360 tablet, 1 Refills, Maintenance, 03/03/21 18:31:00 EDT, [facility], 153, cm, 02/28/21 11:14:00 EDT, Height, 79.6, [...]
--- OUTSIDE RECORDS SUMMARY | 2023-08-13 20:26 | XMS_ITS | Continuity of Care Document ---
Author Name Unknown Organization [facility] Address [address] [place] [address]- Care Team Providers Care Account Development Executive Name Role Phone Not on Staff, PCP Primary Care Physician Unavail able En[place] [facility] [place] Date(s): 04/01/21 - 05/01/21 [facility] [address] [place] [address]- Allergies, Adverse Reactions, Alerts Substance Reaction Severity [...] 01/29/21 15:01:00 EST, Route to Pharmacy Electronically, [facility]/pharmacy #[id number], 153, cm, 01/01/21 8:33:00 [...] Refills, Maintenance, 12/10/20 17:49:00 EST, [facility], 153, cm, 12/10/20 15:22:00 EST, Height, 79.6, [...] capsule, 5 Refills, Maintenance, 08/24/20 9:47:00 EDT, [facility]/pharmacy #0693, 153, cm, 08/14/20 14:22:00 [...] mL, 11 Refills, Maintenance, 01/09/20 10:37:00 EST, [place], [facility]/pharmacy #0693, 2 sprays Nares, Both 3 times a day, 153, cm, 01/09/20 9:49:00 EST, Height, 89.6, kg, 12/26/19 19:50:00 EST, Dry Weight Start Date: 01/09/20 Status: Ordered KlonoPIN 0.5 mg oral tablet 1 tablet = 0.5 mg, By Mouth, 2 times a day, # 60 tablet, 0 Refills, Maintenance, 02/18/21 9:54:00 EDT, Tablet, [facility]/pharmacy #0693, 153, cm, 01/29/21 15:33:00 [...] 1 Refills, Maintenance, 10/06/20 13:46:00 EST, Tablet, [facility]/pharmacy #0693, 153, cm, 08/28/20 15:44:00 [...] 0 Refills, Maintenance, 11/24/20 14:17:00 EST, Tablet, [facility], Partial fill upon patient request if the prescription is for a schedule II opioi... Start Date: 11/24/20 Stop Date: 11/29/20 Status: Ordered Ozempic (1 mg dose) 2 mg/1.5 mL subcutaneous solution = 1 mg, Subcutaneous Injection, Every week, # 3 mL, 11 Refills, Maintenance, 06/04/20 17:34:00 EDT,Solution, [facility]/pharmacy #[id number], 153, cm, 04/23/20 14:32:00 EDT, Height, 89.6, kg, 12/26/19 19:50:00 EST, Dry Weight Start Date: 06/04/20 Status: Ordered Paragard IUD Maintenance, 05/05/19 10:52:19 EDT, Compound Start Date: 05/05/19 Status: Ordered PEG-3350 with Electrolytes (Eqv-NuLYTELY) oral powder for reconstitution See Instructions, as directed, # 1 each, 0 Refills, Maintenance, 12/26/20 14:56:00 EST, [facility], [place] to substitute for ANY gallon prep, as [...] M79.7HEIGHT- 5' WEIGHT- 175LBS LIFETIME NEED FAX: [phone], 02/03/21 14:22:00 EDT, Supply Start Date: 02/03/21 [...] 1 Refills, Maintenance, 03/03/21 18:31:00 EDT, [facility], 153, cm, 02/28/21 11:14:00 EDT, Height, 79.6, kg, 12/30/20 13:59:00 EST, Dry Weight Start Date: 03/03/21 Status: Ordered topiramate 25 mg oral tablet 2 tablet = 50 mg, By Mouth, 2 times a day, # 360 tablet, 1 Refills, Maintenance, 08/09/20 9:35:00 EDT, Tablet, [facility]/pharmacy #[id number], 153, cm, 08/05/20 13:58:00 [...]
--- OUTSIDE RECORDS SUMMARY | 2023-08-13 20:26 | XMS_ITS | Continuity of Care Document ---
Author Name Unknown Organization [facility] Address [address] [place] [address]- Care Team Providers Care Software Applications Designer Name Role Phone Courtney QUACH, Joe Carrion Primary Care Physician [phone] En[place] [facility] [place] Date(s): 02/13/21 - 03/15/21 [facility] [address] [place] [address]- Allergies, Adverse Reactions, Alerts Substance Reaction Severity [...] 3 Refills, Maintenance, 02/05/20 11:51:00 EDT, Solution, [facility]/pharmacy #[id number], 153, cm, 02/01/20 9:49:00 EDT, Height, [...] 01/29/21 15:01:00 EST, Route to Pharmacy Electronically, [facility]/pharmacy #[id number], 153, cm, 01/01/21 8:33:00 EST, Height, [...] Refills, Maintenance, 12/10/20 17:49:00 EST, [facility], 153, cm, 12/10/20 15:22:00 EST, Height, 79.6, [...] capsule, 5 Refills, Maintenance, 08/24/20 9:47:00 EDT, [facility]/pharmacy #[id number], 153, cm, 08/14/20 14:22:00 EDT, Height, [...] 0 Refills, Soft Stop, 12/13/20 11:33:00 EST, Tablet,[facility]/pharmacy #0673, Partial fill upon patient request if the [...] 07/21/20 23:30:00 EDT, Route to Pharmacy Electronically, [facility]/pharmacy #[id number], 153, cm, 07/09/20 13:32:00 EDT, Height, 89.6, kg,... Start Date: 07/21/20 Status: Ordered ipratropium nasal 42 mcg/inh spray 2 sprays, Nares, Both, 3 times a day, # 15 mL, 11 Refills, Maintenance, 01/09/20 10:37:00 EST, [place], [facility]/pharmacy #[id number], 2 sprays Nares, Both 3 times a day, 153, cm, 01/09/20 9:49:00 EST, Height, 89.6, kg, 12/26/19 19:50:00 EST, Dry Weight Start Date: 01/09/20 Status: Ordered KlonoPIN 0.5 mg oral tablet 1 tablet = 0.5 mg, By Mouth, 2 times a day, # 60 tablet, 0 Refills, Maintenance, 02/18/21 9:54:00 EDT, Tablet, [facility]/pharmacy #[id number], 153, cm, 01/29/21 15:33:00 EST, Height, [...] 03/17/21 10:27:00 EDT, 03/11/21 10:27:00 EDT, Tablet, [facility]/pharmacy #[id number], Partial fill upon patient request if the prescription is for a schedul... Start Date: 03/11/21 Stop Date: 03/17/21 Status: Ordered metFORMIN 1000 mg oral tablet 1 tablet = 1,000 mg, By Mouth, 2 times a day, new fdose Soumya Jaquez, # 180 tablet, 1 Refills, Maintenance, 10/06/20 13:46:00 EST, Tablet, [facility]/pharmacy #[id number], 153, cm, 08/28/20 15:44:00 EDT, Height, 89.6, kg, 12/26/19 19:50:00 EST, Dry Weight Start Date: 10/06/20 Status: Ordered omeprazole 20 mg oral delayed release tablet 1 tablet = 20 mg, By Mouth, Daily, # 90 tablet, 0 Refills, Maintenance, 09/29/20 16:38:00 EST, EC Tablet, [facility]/pharmacy #[id number], 153, cm, 08/28/20 15:44:00 EDT, Height, 89.6, kg, 12/26/19 19:50:00 EST, Dry Weight Start Date: 09/29/20 Stop Date: 12/28/20 Status: Ordered ondansetron 4 mg oral tablet 1 tablet = 4 mg, By Mouth, Every 8 hours, PRN as needed for nausea/vomiting, # 15 tablet, 0 Refills, Maintenance, 11/24/20 14:17:00 EST, Tablet, [facility], Partial fill upon patient request if the prescription is for a schedule II opioi... Start Date: 11/24/20 Stop Date: 11/29/20 Status: Ordered Ozempic (1 mg dose) 2 mg/1.5 mL subcutaneous solution = 1 mg, Subcutaneous Injection, Every week, # 3 mL, 11 Refills, Maintenance, 06/04/20 17:34:00 EDT,Solution, [facility]/pharmacy #[id number], 153, cm, 04/23/20 14:32:00 EDT, Height, 89.6, kg, 12/26/19 19:50:00 EST, Dry Weight Start Date: 06/04/20 Status: Ordered Paragard IUD Maintenance, 05/05/19 10:52:19 EDT, Compound Start Date: 05/05/19 Status: Ordered PEG-3350 with Electrolytes (Eqv-NuLYTELY) oral powder for reconstitution See Instructions, as directed, # 1 each, 0 Refills, Maintenance, 12/26/20 14:56:00 EST, [facility], Ok to substitute for ANY gallon prep, as directed, 153, cm, 12/11/20 16:00:00 EST, Height, 79.6, kg, 11/21/20 21:34:00 EST, Dry Weight Start Date: 12/26/20 Status: Ordered plecanatide 3 mg oral tablet 1 tablet = 3 mg, By Mouth, Daily, # 30 tablet, 0 Refills, Maintenance, 02/14/21 11:40:00 EDT, [facility]/pharmacy #[id number], Partial [...] M79.7HEIGHT- 5' WEIGHT- 175LBS LIFETIME NEED FAX: [phone], 02/03/21 14:22:00 EDT, Supply Start Date: 02/03/21 [...] 1 Refills, Maintenance, 03/03/21 18:31:00 EDT, [facility], 153, cm, 02/28/21 11:14:00 EDT, Height, 79.6, [...]
--- OUTSIDE RECORDS SUMMARY | 2023-08-13 20:26 | XMS_ITS | Continuity of Care Document ---
Author Name Unknown Organization [facility] Address [address] [place] [address]- Care Team Providers Care Accreditation Manager Name Role Phone Anupama COREAS, Len Thomas Primary Care Physician [phone] Encounter [facility] [place] Date(s): 06/23/21 - 07/23/21 [facility] [address] [place] [address]- Attending Physician: Admjose d, Francisco Admitting Physician: AdmtrFrancisco Referring Physician: Admtr, Ar8 Allergies, Adverse Reactions, [...] 3 Refills, Maintenance, 02/05/20 11:51:00 EDT, Solution, [facility]/pharmacy #[id number], 153, cm, 02/01/20 9:49:00 [...] 01/29/21 15:01:00 EST, Route to Pharmacy Electronically, [facility]/pharmacy #[id number], 153, cm, 01/01/21 8:33:00 EST, Height, 79.6, kg, 12/30/20 13:59:00 EST, Dry... Start Date: 01/29/21 Stop Date: 07/28/21 Status: Ordered circulatoin boots circulatoin boots, See Instructions, # 1 each, Refills 0, Tot. Refills 0, Maintenance, 1 pair circulation boots Dx. bilateral lower extremity edema, poor circulation, 05/14/21 7:46:00 EDT, Supply, 153, cm, 05/07/21 7:55:00 EDT, Height, 79.6, kg, 0... Start Date: 05/14/21 Status: Ordered clindamycin 300 mg oral capsule TAKE 1 CAPSULE BY MOUTH EVERY 6 HOURS FOR 10 DAYS Start Date: 05/07/21 Status: Ordered clonazePAM 0.5 mg oral tablet 1 tablet = 0.5 mg, By Mouth, 2 times a day, # 60 tablet, 0 Refills, Maintenance, 05/07/21 9:18:00 EDT, Tablet, [facility]/pharmacy #[id number], Partial fill upon patient [...] 13:59:00 EST,... Start Date: 05/14/21 Status: Ordered [facility] VITAMIN D3 25 MCG SOFTGEL [...] Refills, Maintenance, 12/10/20 17:49:00 EST, [id number], 153, cm, 12/10/20 15:22:00 EST, Height, 79.6, [...] Refills, Maintenance, 06/07/21 14:13:00 EDT, [facility], 153, cm, 05/14/21 12:43:00 EDT, Height, 79.6, [...] 07/21/20 23:30:00 EDT, Route to Pharmacy Electronically, [facility]/pharmacy #[id number], 153, cm, 07/09/20 13:32:00 EDT, Height, 89.6, kg,... Start Date: 07/21/20 Status: Ordered ipratropium nasal 42 mcg/inh spray 2 sprays, Nares, Both, 3 times a day, # 15 mL, 11 Refills, Maintenance, 01/09/20 10:37:00 EST, [place], [facility]/pharmacy #[id number], 2 sprays Nares, Both 3 times a day, 153, cm, 01/09/20 9:49:00 EST, Height, 89.6, kg, 12/26/19 19:50:00 EST, Dry Weight Start Date: 01/09/20 Status: Ordered ketoconazole 2% topical shampoo 1 application, Topically, Once, # 120 mL, 1 Refills, Soft Stop, 05/07/21 8:34:00 EDT, Shampoo, [facility]/pharmacy #[id number], 1 application Topically Once, 153, cm, 05/07/21 7:55:00 EDT, Height, 79.6, kg, 12/30/20 13:59:00 EST, Dry Weight Start Date: 05/07/21 Status: Ordered KlonoPIN 0.5 mg oral tablet 1 tablet = 0.5 mg, By Mouth, 2 times a day, # 60 tablet, 0 Refills, Maintenance, 07/01/21 15:21:00 EDT, Tablet, [facility]/pharmacy #[id number], 153, cm, 06/23/21 9:40:00 EDT, Height, 79.6, kg, 12/30/20 13:59:00 EST, Dry Weight Start Date: 07/01/21 Status: Ordered lidocaine 1.8% topical film 1 patch, Topically, Daily, leave on up to 12 hours, # 30 each, 11 Refills, Maintenance, 02/22/20 9:39:00 EDT, Film, [facility]/pharmacy #[id number], 1 patch Topically Daily,Instr:leave on up to 12 hours, 153, cm,02/01/20 9:49:00 EDT, Height, 89.6, kg, 12/26/19 19... Start Date: 02/22/20 Status: Ordered Linzess 290 mcg oral capsule TAKE 1 CAPSULE BY MOUTH EVERY DAY Start Date: 05/07/21 Status: Ordered [place] 0.65% nasal spray 2 sprays, Nares, Both, 4 times a day, # 1 each, 0 Refills, Maintenance, 06/23/21 9:54:00 EDT, [facility]/pharmacy #[id number], Partial fill upon patient request if the prescription is for a schedule II opioid drug., 2 sprays Nares, Both 4 times a day, 153, cm, 08/... Start Date: 06/23/21 Status: Ordered omeprazole 20 mg oral delayed release tablet 1 tablet = 20 mg, By Mouth, Daily, # 90 tablet, 0 Refills, Maintenance, 09/29/20 16:38:00 EST, EC Tablet, [facility]/pharmacy #[id number], 153, cm, 08/28/20 15:44:00 EDT, Height, 89.6, kg, 12/26/19 19:50:00 EST, Dry Weight Start Date: 09/29/20 Stop Date: 12/28/20 Status: Ordered ondansetron 4 mg oral tablet 1 tablet = 4 mg, By Mouth, Every 8 hours, PRN as needed for nausea/vomiting, # 15 tablet, 0 Refills, Maintenance, 11/24/20 14:17:00 EST, Tablet, [facility], Partial fill upon patient [...] Unknown, 1 Refills, Maintenance, 06/30/21 18:41:00 EDT, [facility]/pharmacy #[id number], 90, INJECT 1MG INTO THE SKIN WEEKLY, 153, cm, 06/23/21 9:40:00 EDT, Height, 79.6, kg, 12/30/20 13:59:00 EST, Dry Weight Start Date: 06/30/21 Status: Ordered Paragard IUD Maintenance, 05/05/19 10:52:19 EDT, Compound Start Date: 05/05/19 Status: Ordered PEG-3350 with Electrolytes (Eqv-NuLYTELY) oral powder for reconstitution See Instructions, as directed, # 1 each, 0 Refills, Maintenance, 12/26/20 14:56:00 EST, [id number], Ok to substitute for ANY gallon prep, as directed, 153, cm, 12/11/20 16:00:00 EST, Height, 79.6, kg, 11/21/20 21:34:00 EST, Dry Weight Start Date: 12/26/20 Status: Ordered plecanatide 3 mg oral tablet 1 tablet = 3 mg, By Mouth, Daily, # 30 tablet, 0 Refills, Maintenance, 02/14/21 11:40:00 EDT, [facility]/pharmacy #[id number], Partial fill upon patient [...] M79.7HEIGHT- 5' WEIGHT- 175LBS LIFETIME NEED FAX: [phone], 02/03/21 14:22:00 EDT, Supply Start Date: 02/03/21 [...] 1 Refills, Maintenance, 03/03/21 18:31:00 EDT, [facility], 153, cm, 02/28/21 11:14:00 EDT, Height, 79.6, kg, 12/30/20 13:59:00 EST, Dry Weight Start Date: 03/03/21 Status: Ordered topiramate 25 mg oral tablet 2 tablet = 50 mg, By Mouth, 2 times a day, # 360 tablet, 1 Refills, Maintenance, 08/09/20 9:35:00 EDT, Tablet, [facility]/pharmacy #[id number], 153, cm, 08/05/20 13:58:00 EDT, Height, [...] 3 Refills, Maintenance, 12/19/20 11:58:00 EST, Capsule, [facility]/pharmacy #[id number], Partial fill upon patient [...]
--- OUTSIDE RECORDS SUMMARY | 2023-08-13 20:26 | XMS_ITS | Continuity of Care Document ---
Author Name Unknown Organization [facility] Address [address] [place] [address]- Care Team Providers Care Core Cutter Name Role Phone Joe Valdez MD Primary Care Physician Encounter [facility] [place] ACCT R [id number] Date(s): 04/17/20 - 05/23/20 [facility] Adult [address] [place] [address]- [facility] Attending Physician: Joe Valdez MD Allergies, [...] 04/11/20 10:00:00 EDT, Route to Pharmacy Electronically, [facility]/pharmacy #[id number], 153, cm, 02/01/20 9:49:00 EDT, Height, 89.6, kg, 12/26/19 19:50:00 EST, Dry... Start Date: 04/11/20 Status: Ordered diabetic shoes diabetic shoes, See [...] 5 Refills, Maintenance, 05/01/20 16:21:00 EDT, Tablet, [facility]/pharmacy #[id number], 153, cm, 04/23/20 [...] 60 capsule, 6 Refills, Maintenance, 04/23/20 15:15:00EDT, [facility]/pharmacy #[id number], 153, cm, 04/23/20 14:32:00 EDT, Height, 89.6, kg, 12/26/19 19:50:00 EST, Dry Weight Start Date: 04/23/20 Status: Ordered Emgality Prefilled Pen 120 mg/mL subcutaneous solution = 120 mg, Subcutaneous Infusion, Every 28 days, First injection given in office, patient supplied meds. Two injections given per order one to each arm subcutaneously. Patient tolerated well. [facility] [id number] EXP 11/2020 LOT [id number] [facility] [id number]... Start Date: 06/02/19 Status: Ordered EpiPen 2-Freeman [...] 60 tablet, Refills 0, Tot.Refills 0, Maintenance, 04/17/20 8:55:00 EDT, Route to Pharmacy Electronically, [facility]/pharmacy #[id number],153, cm, 02/01/20 9:49:00 EDT, Height, 89.6, kg, 0... Start Date: 04/17/20 Status: Ordered ipratropium nasal 42 mcg/inh spray 2 sprays, Nares, Both, 3 times a day, # 15 mL, 11 Refills, Maintenance, 01/09/20 10:37:00 EST, [place], [facility]/pharmacy #[id number], 2 sprays Nares, Both 3 times a day, 153, cm, 01/09/20 9:49:00 EST, Height, 89.6, kg, 12/26/19 19:50:00 EST, Dry Weight Start Date: 01/09/20 Status: Ordered ketoconazole 2% topical shampoo 1 application, Topically, Once, # 120 mL, 0 Refills, Soft Stop, 05/02/20 17:02:00 EDT, Shampoo, [facility]/pharmacy #[id number], 1 application Topically Once, 153, cm, 04/23/20 14:32:00 EDT, Height, 89.6, kg, 12/26/19 19:50:00 EST, Dry Weight Start Date: 05/02/20 Status: Ordered KlonoPIN 0.5 mg oral tablet 1 tablet = 0.5 mg, By Mouth, 2 times a day, # 14 tablet, 0 Refills, Maintenance, 04/17/20 12:00:00 EDT, Tablet, [facility]/pharmacy #[id number], 153, cm, 02/01/20 9:49:00 EDT, Height, 89.6, kg, 12/26/19 19:50:00 EST, Dry Weight Start Date: 04/17/20 Stop Date: 04/24/20 Status: Ordered lidocaine 1.8% topical film 1 patch, Topically, Daily, leave on up to 12 hours, # 30 each, 11 Refills, Maintenance, 02/22/20 9:39:00 EDT, Film, [facility]/pharmacy #[id number], 1 patch Topically Daily,Instr:leave on up to 12 hours, 153, cm,02/01/20 9:49:00 EDT, Height, 89.6, kg, 12/26/19 19... Start Date: 02/22/20 Status: Ordered Linzess 290 mcg oral capsule 1 capsule, By Mouth, Daily, # 30 capsule, 0 Refills, Maintenance, 05/20/20 11:05:00 EDT, [facility], 153, cm, 04/23/20 14:32:00 EDT, Height, 89.6, kg, 12/26/19 19:50:00 EST, Dry Weight Start Date: 05/20/20 Status: Ordered metFORMIN 1000 mg oral tablet [...] Subcutaneous Injection, Every week, # 1.5 mL, 2 Refills, Maintenance, 05/01/20 11:15:00 EDT, Solution, [facility]/pharmacy #[id number], 153, cm, 04/23/20 14:32:00 EDT, Height, 89.6, kg, 12/26/19 19:50:00 EST, Dry Weight Start Date: 05/01/20 Status: Ordered Paragard IUD Maintenance, 05/05/19 10:52:19 [...] 2 times a day, # 120 tablet, 2 Refills, Maintenance, 04/17/20 8:55:00 EDT, Tablet, [facility]/pharmacy #[id number], 153, cm, 02/01/20 9:49:00 EDT, Height, 89.6, kg, 12/26/19 19:50:00 EST, Dry Weight Start Date: 04/17/20 Status: Ordered zolpidem 5 mg oral tablet 1 tablet = 5 mg, By Mouth, Daily at bedtime, PRN as needed for insomnia, needs ov for further refills, # 7 tablet, 0 Refills, Maintenance, 04/17/20 12:00:00 EDT, Tablet, [facility]/pharmacy #[id number], 153, cm, 02/01/20 9:49:00 EDT, Height, 89.6, kg, 12/26/19 19:... Start Date: 04/17/20 Stop Date: 04/24/20 Status: Ordered Problem List Condition Effective Dates [...]
--- OUTSIDE RECORDS SUMMARY | 2023-08-13 20:27 | XMS_ITS | Continuity of Care Document ---
Author Name Unknown Organization [facility] Address [address] [place] [address]- Care Team Providers Care Sports Book Server Name Role Phone Joe Valdez MD Primary Care Physician [place] [facility] [place] [id number] Date(s): 10/13/19 - 12/10/19 [facility] [address] [place] [address]- [facility] Attending Physician: Joe Valdez MD Allergies, Adverse Reactions, Alerts Substance Reaction Severity Status doxycycline Active penicillin Active Bactrim Active Nuts Anaphylactic reaction to food Active Other Food Allergy 1 HONEY hives Active 1honey Immunizations Not Given Vaccine Date Status Refusal Reason pneumococcal 23-valent vaccine 03/19/19 Not Given Patient Refuses Medications acetaminophen/butalbital/caffeine 300 mg-50 mg-40 mg oral capsule 1 capsule, By Mouth, Every 4 hours, 0 Refills, Maintenance, 05/05/19 10:40:48 EDT Start Date: 05/05/19 Status: Ordered azelastine nasal 0.15% spray 2 sprays, 2 times a day, 0 Refills, Maintenance, 05/05/19 10:45:03 EDT Start Date: 05/05/19 Status: Ordered Calmoseptine 0.44%-20.6% topical ointment See Instructions, apply daily Soumya Jaquez, # 1 box, 0 Refills, Maintenance, 08/22/19 16:17:11 EDT Start Date: 08/22/19 Status: Ordered clobetasol 0.05% topical cream 1 application, Topically, 2 times a day, # 30 Gm, 0 Refills, Maintenance, 05/05/19 10:44:49 EDT, Cream Start Date: 05/05/19 Status: Ordered DIABETIC SHOES DIABETIC SHOES, See Instructions, # 1 each, Refills 0, Tot. Refills 0, Maintenance, DX: DM E11.9 Soumya Jaquez [phone] ATTN: SANDIP, 08/22/19 16:18:20 EDT, Compound Start Date: 08/22/19 Status: Ordered diabetic shoes diabetic shoes, See Instructions, # 1 each, Refills 0, Tot. Refills 0, Maintenance, dx: DM E11.9 Soumya Jaquez, 05/26/19 8:12:35 EDT, Compound Start Date: 05/26/19 Status: Ordered Docusate/Senna Tablet 1 tablet, By Mouth, 2 times a day, PRN Constipation, 0 Refills, Maintenance, 03/21/19 15:08:40 EDT,Tablet Start Date: 03/21/19 Status: Ordered Dulera 100 mcg-5 mcg/inh inhalation aerosol 2 puffs, Inhalation, 2 times a day, rinse mouth and throat after use Soumya jaquez, # 1 each, 11 Refills, Maintenance, 10/13/19 7:51:32 EST, Aerosol, 2 puffs Inhalation 2 times a day,Instr:rinse mouth and throat after use; Soumya jaquez Start Date: 10/13/19 Status: Ordered Dulera 200 mcg-5 mcg/inh inhalation [...] to each arm subcutaneously. Patient tolerated well. [facility] [id number] EXP 11/2020 LOT [id number] [facility] [id number]... Start Date: 06/02/19 Status: Ordered EpiPen 2-Freeman 0.3 mg injectable kit See Instructions, Intramuscular Once, # 2 cartridge, 0 Refills, Soft Stop, 05/11/19 15:39:44 EDT Start Date: 05/11/19 Status: Ordered ferrous sulfate 325 mg oral tablet 1 tablet = 325 mg, By Mouth, 2 times a day, # 90 tablet, 3 Refills, Maintenance, 01/26/14 15:23:47,Tablet Start Date: 01/26/14 Status: Ordered Flonase Daily, 0 Refills, Maintenance, 05/05/19 10:45:08 EDT Start Date: 05/05/19 Status: Ordered Fluconazole 150 mg, By Mouth, Every 7 days, Maintenance, 05/05/19 10:45:40 EDT Start Date: 05/05/19 Status: Ordered fluconazole 150 mg oral tablet 1 tablet = 150 mg, By Mouth, Once, # 1 tablet, 0 Refills, Soft Stop, 06/15/19 12:51:17 EDT, Tablet Start Date: 06/15/19 Status: Ordered Freestyle Flash Glucose Meter See Instructions, # 1 each, Maintenance, dx: DM E11.9 Soumya Jaquez, 05/26/19 8:13:16 EDT, Compound Start Date: 05/26/19 Status: Ordered Freestyle Lite Monitor See Instructions, [...] EDT, Compound Start Date: 05/31/19 Status: Ordered hydrOXYzine hydrochloride 25 mg oral tablet 1 tablet = 25 mg, By Mouth, Daily at bedtime, 0 Refills, Maintenance, 05/05/19 10:44:05 EDT Start Date: 05/05/19 Status: Ordered ibuprofen 600 mg oral tablet 600 mg, 1, tablet, By Mouth, 2 times a day, with food Soumya Quiniones, # 60 tablet, Refills 0, Tot.Refills 0, Maintenance, 10/13/19 7:45:01 EST, Route to Pharmacy Electronically, [id number], [facility]/pharmacy #[id number] Start Date: 10/13/19 Status: Ordered KlonoPIN 0.5 mg oral tablet = 0.5 mg, By Mouth, 2 times a day, 0 Refills, Maintenance, 03/21/19 15:00:03 EDT, Tablet Start Date: 03/21/19 Status: Ordered lactulose 10 gm/15 ml oral syrup 15 mL = 10 Gm, By Mouth, 3 times a day, PRN Constipation, 0 Refills, Maintenance, 03/21/19 15:00:28EDT, Syrup Start Date: 03/21/19 Status: Ordered Linzess 290 mcg oral capsule TAKE ONE CAPSULE BY MOUTH EVERY DAY ON EMPTY STOMACH AT LEAST 30 MINS BEFORE 1ST MEAL OF DAY Start Date: 10/13/17 Status: Ordered metFORMIN 1000 mg oral tablet 1 tablet = 1,000 mg, By Mouth, 2 times a day, new fdose Soumya Jaquez, # 180 tablet, 3 Refills, Maintenance, 09/15/19 8:25:51 EDT, Tablet Start Date: 09/15/19 Status: Ordered MiraLax Powder 1 pack/packet = 17 Gm, By Mouth, 3 times a day, PRN Constipation, 0 Refills, Maintenance, 03/21/19 15:08:30 EDT, Powder Start Date: 03/21/19 Status: Ordered multivitamin, Multivitamins oral tablet, chewable 1 tablet, Daily, 0 Refills, Maintenance, 05/05/19 10:41:25 EDT Start Date: 05/05/19 Status: Ordered nystatin topical 433898 u/gm powder 1 applicator, Topically, 3 times a day, 0 Refills, Maintenance, 05/05/19 10:45:30 EDT Start Date: 05/05/19 Status: Ordered omeprazole 20 mg oral delayed release tablet 1 tablet = 20 mg, By Mouth, Daily, Soumya Jaquez, # 30 tablet, 11 Refills, Maintenance, 05/26/19 8:03:22 EDT, EC Tablet Start Date: 05/26/19 Status: Ordered Paragard IUD Maintenance, 05/05/19 10:52:19 EDT, Compound Start Date: 05/05/19 Status: Ordered PARoxetine 20 mg oral tablet 20 mg, 1, tablet, By Mouth, Daily, # 30 tablet, Refills 0, Maintenance, 06/06/19 10:55:42 EDT Start Date: 06/06/19 Status: Ordered Preparation H 14%-74.9%-0.25% rectal ointment 1 application, Rectally, 2 times a day, PRN as needed for itching, Soumya Jaquez, # 57 Gm, 11 Refills, Maintenance, 08/22/19 16:17:12 EDT, Ointment Start Date: 08/22/19 Status: Ordered see below see below, See Instructions, # 1 each, Refills 0, Tot. Refills 0, Maintenance, Walker Injured hip.,03/23/19 12:14:05 EDT, Compound Start Date: 03/23/19 Status: Ordered simethicone 80 mg oral tablet 1 tablet = 80 mg, Chew, 3 times a day after meals and bedtime, PRN for gas, # 60 tablet, 0 Refills,Maintenance, 05/05/19 10:40:30 EDT, Tablet Start Date: 05/05/19 Status: Ordered SMALL COMRESSION GLOVES SMALL COMRESSION GLOVES, See Instructions, # 1 pair, Refills 0, Tot. Refills 0, Maintenance, DX: Fibromyalgia Soumya Jaquez, 09/15/19 8:00:52 EDT, Compound Start Date: 09/15/19 Status: Ordered temazepam 15 mg oral capsule 2 capsule = 30 mg, By Mouth, Daily at bedtime, 0 Refills, Maintenance, 05/01/19 9:29:51 EDT Start Date: 05/01/19 Status: Ordered terconazole topical 0.4% cream Vaginally, Daily at bedtime, 0 Refills, Maintenance, 05/05/19 10:38:17 EDT Start Date: 05/05/19 Status: Ordered topiramate 25 mg oral tablet 2 tablet = 50 mg, By Mouth, 2 times a day, 0 Refills, Maintenance, 06/06/19 10:56:35 EDT Start Date: 06/06/19 Status: Ordered Trileptal 150 mg oral tablet 150 mg, 1, tablet, By Mouth, 2 times a day, # 60 tablet, Refills 0, Tot. Refills 0, Maintenance, 05/11/19 15:23:38 EDT, Route to Pharmacy Electronically, [id number], [facility]/pharmacy #[id number] Start Date: 05/11/19 Status: Ordered Tylenol 325 mg oral tablet 650 mg, By Mouth, Every 6 hours, PRN, Refills 0, Maintenance, Pain , Mild, 03/21/19 15:00:53 EDT Start Date: 03/21/19 Status: Ordered Venlafaxine By Mouth, 0 Refills, Maintenance, 05/11/19 15:23:09 EDT Start Date: 05/11/19 Status: Ordered Vitamin D 14532 iu oral capsule 50,000 International_Units, 1, capsule, By Mouth, Every week, # 30 capsule, Refills 0, Maintenance,05/11/19 15:56:58 EDT Start Date: 05/11/19 Status: Ordered zolpidem 10 mg oral tablet 0.5 tablet = 5 mg, By Mouth, Daily at bedtime, PRN as needed for insomnia, 0 Refills, Maintenance, 05/05/19 10:42:49 EDT, Tablet Start Date: 05/05/19 Status: Ordered ZyrTEC 10 mg oral tablet 1 tablet = 10 mg, By Mouth, Daily, 0 Refills, Maintenance, 05/05/19 10:39:07 EDT Start Date: 05/05/19 Status: Ordered Problem List Condition Effective Dates Status Health Status Inform ant 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) 1, 2, 3 07/05/17 Active Bipolar disease, chronic(Confirmed) Active Cervical radiculopathy(Confirmed) Active Chronic pain disorder/fibromyalgia(Confirmed) Active Coccyx disorder(Confirmed) Active Constipation(Confirmed) Active Depressive disorder(Confirmed) Active Hidradenitis suppurativa(Confirmed) Active Anemia, iron deficiency(Confirmed) Active Migraine(Confirmed) Active Erosion of gastric band(Confirmed) Active Asthma, moderate persistent(Confirmed) Active Nephrolithiasis(Confirmed) Active Polypharmacy(Confirmed) Active PTSD (post-traumatic stress disorder); pyschiatry(Confirmed) Active Hepatic steatosis(Confirmed) Active DM (diabetes mellitus), type 2(Confirmed) Active Urinary incontinence(Confirmed) Active Vitamin D deficiency(Confirmed) Active 1CIN 1. cotesting Jun 2018 2colpo, ecc, bx x 2 3referred for colpo Social History Social History Type Response Smoking Status Never smoker; Type: Cigarettes entered on: 06/28/18 Sex
--- OUTSIDE RECORDS SUMMARY | 2023-08-13 20:27 | XMS_ITS | Continuity of Care Document ---
Author Name Unknown Organization [facility] Julian lt Address [address] [place] [address]- Care Team Providers Care Safety Glass Installer Name Role Phone Joe Valdez MD Primary Care Physician [place] [facility] [place] 12/28/19 - 01/04/20 [facility] [address] [place] [address]- [facility] Encounter Diagnosis DM (diabetes mellitus), type 2(Discharge Diagnosis) - 12/28/19 Asthma, moderate persistent(Discharge Diagnosis) - 12/28/19 Chronic sinusitis(Discharge Diagnosis) - 12/28/19 Bipolar disease, chronic(Discharge Diagnosis) - 12/28/19 Major depression(Discharge Diagnosis) - 12/28/19 Hepatic steatosis(Discharge Diagnosis) - 12/28/19 Anemia, iron deficiency(Discharge Diagnosis) - 12/28/19 Migraine(Discharge Diagnosis) - 12/28/19 PTSD (post-traumatic stress disorder); pyschiatry(Discharge Diagnosis) - 12/28/19 Fibromyalgia(Discharge Diagnosis) - 12/28/19 Attending Physician: Joe Valdez MD Allergies, Adverse [...] 10:40:48 EDT Start Date: 05/05/19 Status: Ordered carBAMazepine 100 mg oral tablet, extended release 200 mg, 2, tablet, By Mouth, 2 times a day, # 120 tablet, Refills 0, Tot. Refills 0, Maintenance, 12/28/19 8:12:00 EST, Route to Pharmacy Electronically, [facility]/pharmacy #[id number], 153, cm, 12/28/19 7:42:00EST, Height, 89.6, kg, 12/26/19 19:50:00 EST, Dry W... Start Date: 12/28/19 Status: Ordered diabetic shoes diabetic shoes, See [...] 0 Refills, Maintenance, 01/01/20 14:51:00 EST, Tablet, [facility]/pharmacy #[id number], 153, cm, 12/28/19 7:42:00 EST, [...] to each arm subcutaneously. Patient tolerated well. [facility] [id number] EXP 11/[id number] [facility] [id number]... Start Date: 06/02/19 Status: Ordered EpiPen 2-Freeman [...] 10/13/19 7:45:01 EST, Route to Pharmacy Electronically, [id number], [facility]/pharmacy #[id number] Start Date: 10/13/19 Status: Ordered KlonoPIN 0.5 mg oral tablet 1 tablet = 0.5 mg, By Mouth, 2 times a day, # 24 tablet, 0 Refills, Maintenance, 12/30/19 10:27:00 EST, Tablet, [facility]/pharmacy #[id number], 153, cm, 12/28/19 7:42:00 EST, Height, 89.6, kg, 12/26/19 19:50:00 EST, Dry Weight Start Date: 12/30/19 Status: Ordered Linzess 290 mcg oral capsule 1 capsule = 290 mcg, By Mouth, Daily, # 30 capsule, 0 Refills, Maintenance, 01/01/20 14:50:00 EST, Capsule, [facility]/pharmacy #[id number], 153, cm, 12/28/19 7:42:00 EST, Height, 89.6, kg, 12/26/19 19:50:00 EST,Dry Weight Start Date: 01/01/20 Status: Ordered metFORMIN 1000 mg oral tablet 1 tablet = 1,000 mg, By Mouth, 2 times a day, new fdose Soumyamarcos Mur[place], # 180 tablet, 3 Refills, Maintenance, 09/15/19 [...] 1 Refills, Maintenance, 12/28/19 8:08:00 EST, Solution, [facility]/pharmacy #[id number], 153, cm, 12/28/19 7:42:00 EST, Height, 89.6, kg, 12/26/19 19:50:00EST, Dry Weight Start Date: 12/28/19 Stop Date: 02/22/20 Status: Ordered Paragard IUD Maintenance, 05/05/19 10:52:19 EDT, Compound Start Date: 05/05/19 Status: Ordered PARoxetine 20 mg oral tablet 20 mg, 1, tablet, By Mouth, Daily, # 30 tablet, Refills 0, Tot. Refills 0, Maintenance, 12/27/19 10:27:00 EST, Print Requisition Start Date: 12/27/19 Status: Ordered see below see below, See [...] EST, Tablet Start Date: 12/27/19 Status: Ordered ZyPREXA 5 mg oral tablet 5 mg, 1, tablet, By Mouth, Daily at bedtime, # 30 tablet, Refills 0, Tot. 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) 1, 2, 3 07/05/17 Active Bipolar disease, chronic(Confirmed) Active Cervical radiculopathy(Confirmed) Active Chronic pain disorder/fibromyalgia(Confirmed) Active Coccyx disorder(Confirmed) Active Constipation(Confirmed) Active Depressive disorder(Confirmed) Active Fibromyalgia(Confirmed) Active Hidradenitis suppurativa(Confirmed) Active Anemia, [...] Effective Dates Health Status Clinical Service Informant DM (diabetes mellitus), type 2 Discharge Diagnosis 12/28/19 Asthma, moderate persistent Discharge Diagnosis 12/28/19 Chronic sinusitis Discharge Diagnosis 12/28/19 Bipolar disease, chronic Discharge Diagnosis 12/28/19 Major depression Discharge Diagnosis 12/28/19 Hepatic steatosis Discharge Diagnosis 12/28/19 Anemia, iron deficiency Discharge Diagnosis 12/28/19 Migraine Discharge Diagnosis 12/28/19 PTSD (post-traumatic stress disorder); pyschiatry Discharge Diagnosis 12/28/19 Fibromyalgia Discharge Diagnosis 12/28/19 Vital Signs Most recent to oldest [Reference Range]: 1 Height 153 cm (12/28/19 7:42 AM) Oxygen Saturation [94-100 %] 98 % (12/28/19 7:42 AM) Pulse Rate [55-90 bpm] 112 bpm *H* (12/28/19 7:42 AM) Blood Pressure [90-138/55-84 mm Hg] 100/ 68mm Hg (12/28/19 7:42 AM) Temperature [96.8-100.4 DegF] 98.7 DegF (12/28/19 7:42 AM) Blood pressure sites Arm, left (12/28/19 7:42 AM) Temperature Route Oral (12/28/19 7:42 AM) Social History Social History Type Response Smoking Status Never smoker; Type: Cigarettes entered on: 06/28/18 Sex
--- OUTSIDE RECORDS SUMMARY | 2023-08-13 20:27 | XMS_ITS | Continuity of Care Document ---
Author Name Unknown Organization [facility] Address [address] [place] [address]- Care Team Providers Care Lockstitch Topstitcher Name Role Phone Courtney QUACH, Joe Carrion Primary Care Physician [phone] [place] [facility] [place] - 02/11/[address] [address]- [facility] Attending Physician: Francisco Bourgeois Admitting Physician: Francisco Bourgeois Referring Physician: AdmtrFrancisco Allergies, Adverse Reactions, Alerts Substance Reaction Severity [...] Refills, Maintenance, 02/05/20 11:51:00 EDT, Solution, [id number], 153, cm, 02/01/20 9:49:00 EDT, Height, 89.6, kg, 12/26/19 19:50:00 EST, Dry Weight Start Date: 02/05/20 Status: Ordered carBAMazepine 100 mg oral tablet, extended release 200 mg, 2, tablet, By Mouth, 2 times a day, # 120 tablet, Refills 2, Tot. Refills 2, Maintenance, 01/18/20 17:04:00 EST, Route to Pharmacy Electronically, [facility]/pharmacy #[id number], 153, cm, 01/09/20 9:49:00 EST, Height, [...] Refills, Maintenance, 01/01/20 14:51:00 EST, Tablet, [facility]/pharmacy #[id number], 153, cm, 12/28/19 7:42:00 EST, Height, [...] Refills, Maintenance, 02/01/20 9:58:00 EDT, EC Capsule, [id number], 153, cm, 02/01/20 9:49:00 EDT, Height, 89.6, kg, 12/26/19 19:50:00 EST, Dry... Start Date: 02/01/20 Status: Ordered Emgality Prefilled Pen 120 mg/mL subcutaneous solution = 120 mg, Subcutaneous Infusion, Every 28 days, First injection given in office, patient supplied meds. Two injections given per order one to each arm subcutaneously. Patient tolerated well. [facility] [id number] EXP 11/2020 LOT [id number] [facility] [id number]... Start Date: 06/02/19 Status: Ordered EpiPen 2-Freeman [...] 10/13/19 7:45:01 EST, Route to Pharmacy Electronically, [id number], [facility]/pharmacy #[id number] Start Date: 10/13/19 Status: Ordered ipratropium nasal 42 mcg/inh spray 2 sprays, Nares, Both, 3 times a day, # 15 mL, 11 Refills, Maintenance, 01/09/20 10:37:00 EST, [place], [facility]/pharmacy #[id number], 2 sprays Nares, Both 3 times a day, 153, cm, 01/09/20 9:49:00 EST, Height, 89.6, kg, 12/26/19 19:50:00 EST, Dry Weight Start Date: 01/09/20 Status: Ordered KlonoPIN 0.5 mg oral tablet 1 tablet = 0.5 mg, By Mouth, 2 times a day, # 24 tablet, 0 Refills, Maintenance, 12/30/19 10:27:00 EST, Tablet, [facility]/pharmacy #[id number], 153, cm, 12/28/19 7:42:00 EST, Height, 89.6, kg, 12/26/19 19:50:00 EST, Dry Weight Start Date: 12/30/19 Status: Ordered Linzess 290 mcg oral capsule 1 capsule = 290 mcg, By Mouth, Daily, # 30 capsule, 0 Refills, Maintenance, 01/01/20 14:50:00 EST, Capsule, [facility]/pharmacy #[id number], 153, cm, 12/28/19 7:42:00 EST, Height, [...] Refills, Maintenance, 12/28/19 8:08:00 EST, Solution, [facility]/pharmacy #[id number], 153, cm, 12/28/19 7:42:00 EST, Height, [...]
--- OUTSIDE RECORDS SUMMARY | 2023-08-13 20:27 | XMS_ITS | Continuity of Care Document ---
Author Name Unknown Organization [facility] Address [address] [place] [address] [address] [place] [address]- Care Team Providers Care Theater Projectionist Name Role Phone Courtney QUACH, Joe Carrion Primary Care Physician [place] [facility] [place] 12[place]17/20 [facility] [address] [place] [address]- Attending Physician: Esa QUACH, Earnestine Referring Physician: Sha QUACH, Aleksandar Larose Allergies, Adverse Reactions, Alerts Substance Reaction Severity [...] 3 Refills, Maintenance, 02/05/20 11:51:00 EDT, Solution, [facility]/pharmacy #[id number], 153, cm, 02/01/20 9:49:00 EDT, Height, 89.6, kg, 12/26/19 19:50:00 EST, Dry Weight Start Date: 02/05/20 Status: Ordered carBAMazepine 100 mg oral tablet, extended release 200 mg, 2, tablet, By Mouth, 2 times a day, # 360 tablet, Refills 1, Tot. Refills 1, Maintenance, 07/01/20 16:38:00 EDT, Route to Pharmacy Electronically, [facility]/pharmacy #[id number], 153, cm, 04/23/20 14:32:00 EDT, [...] Refills, Maintenance, 12/10/20 17:49:00 EST, [id number], 153, cm, 12/10/20 15:22:00 EST, Height, 79.6, [...] 07/21/20 23:30:00 EDT, Route to Pharmacy Electronically, [facility]/pharmacy #[id number], 153, cm, 07/09/20 13:32:00 EDT, Height, 89.6, kg,... Start Date: 07/21/20 Status: Ordered ipratropium nasal 42 mcg/inh spray 2 sprays, Nares, Both, 3 times a day, # 15 mL, 11 Refills, Maintenance, 01/09/20 10:37:00 EST, [place], [facility]/pharmacy #[id number], 2 sprays Nares, Both 3 times a day, 153, cm, 01/09/20 9:49:00 EST, Height, 89.6, kg, 12/26/19 19:50:00 EST, Dry Weight Start Date: 01/09/20 Status: Ordered KlonoPIN 0.5 mg oral tablet 1 tablet = 0.5 mg, By Mouth, 2 times a day, # 60 tablet, 0 Refills, Maintenance, 11/28/20 13:19:00 EST, Tablet, [facility]/pharmacy #[id number], 153, cm, 11/28/20 12:47:00 EST, Height, 79.6, kg, 11/21/20 21:34:00EST, Dry Weight Start Date: 11/28/20 Status: Ordered lidocaine 1.8% topical film 1 patch, Topically, Daily, leave on up to 12 hours, # 30 each, 11 Refills, Maintenance, 02/22/20 9:39:00 EDT, Film, [facility]/pharmacy #[id number], 1 patch Topically Daily,Instr:leave on up to 12 hours, 153, cm,02/01/20 9:49:00 EDT, Height, 89.6, kg, 12/26/19 19... Start Date: 02/22/20 Status: Ordered Linzess 290 mcg oral capsule 1 capsule, By Mouth, Daily, # 30 capsule, 0 Refills, Maintenance, 12/03/20 10:27:00 EST, [facility]/pharmacy #[id number], 153, cm, 11/28/20 12:47:00 EST, Height, 79.6, kg, 11/21/20 21:34:00 EST, Dry Weight Start Date: 12/03/20 Status: Ordered metFORMIN 1000 mg oral tablet 1 tablet = 1,000 mg, By Mouth, 2 times a day, new fdose Soumya Jaquez, # 180 tablet, 1 Refills, Maintenance, 10/06/20 13:46:00 EST, Tablet, [facility]/pharmacy #[id number], 153, cm, 08/28/20 15:44:00 EDT, Height, 89.6, kg, 12/26/19 19:50:00 EST, Dry Weight Start Date: 10/06/20 Status: Ordered omeprazole 20 mg oral delayed release tablet 1 tablet = 20 mg, By Mouth, Daily, # 90 tablet, 0 Refills, Maintenance, 09/29/20 16:38:00 EST, EC Tablet, [facility]/pharmacy #[id number], 153, cm, 08/28/20 15:44:00 EDT, Height, 89.6, kg, 12/26/19 19:50:00 EST, Dry Weight Start Date: 09/29/20 Stop Date: 12/28/20 Status: Ordered ondansetron 4 mg oral tablet 1 tablet = 4 mg, By Mouth, Every 8 hours, PRN as needed for nausea/vomiting, # 15 tablet, 0 Refills, Maintenance, 11/24/20 14:17:00 EST, Tablet, [facility], Partial fill upon patient request if the prescription is for a schedule II opioi... Start Date: 11/24/20 Stop Date: 11/29/20 Status: Ordered Ozempic (1 mg dose) 2 mg/1.5 mL subcutaneous solution = 1 mg, Subcutaneous Injection, Every week, # 3 mL, 11 Refills, Maintenance, 06/04/20 17:34:00 EDT,Solution, [facility]/pharmacy #[id number], 153, cm, 04/23/20 14:32:00 EDT, [...] 1 Refills, Maintenance, 08/09/20 9:35:00 EDT, Tablet, [facility]/pharmacy #[id number], 153, cm, 08/05/20 13:58:00 EDT, Height, 89.6, kg, 12/26/19 19:50:00 EST, Dry Weight Start Date: 08/09/20 Status: Ordered zolpidem 5 mg oral tablet 1 tablet = 5 mg, By Mouth, Daily at bedtime, PRN as needed for insomnia, # 30 tablet, 0 Refills, Maintenance, 11/08/20 13:53:00 EST, Tablet, [facility]/pharmacy #[id number], 153, cm, 08/28/20 15:44:00 [...] infusions(Confirmed) Active Major depression(Confirmed) Active Migraine(Confirmed) Active Erosion [...] oldest [Reference Range]: 1 Height 153 cm (12/10/20 3:22 PM) Pulse Rate [55-90 bpm] 80 bpm (12/10/20 3:22 PM) Blood Pressure [90-138/55-84 mm Hg] 112/ 72mm Hg (12/10/20 3:22 PM) Temperature [96.8-100.4 DegF] 97 DegF (12/10/20 3:22 PM) Blood pressure sites Arm, left (12/10/20 3:22 PM) Temperature Route Temporal (12/10/20 3:22 PM) Social History Social History Type Response Smoking Status Never smoker; Type: Cigarettes entered on: 06/28/18 Sex
--- OUTSIDE RECORDS SUMMARY | 2023-08-13 20:27 | XMS_ITS | Continuity of Care Document ---
Author Name Unknown Organization [facility] lt Address [address] [place] [address]- Care Team Providers Care Field Collector Name Role Phone Courtney QUACH, Joe Carrion Primary Care Physician [phone] [facility] [place]20 [facility] [address] [place] [address]- [facility] Allergies, Adverse Reactions, Alerts Substance Reaction [...] 5 Refills, Maintenance, 05/01/20 16:21:00 EDT, Tablet, [facility]/pharmacy #[id number], 153, cm, 04/23/20 [...] 60 capsule, 6 Refills, Maintenance, 04/23/20 15:15:00EDT, [facility]/pharmacy #[id number], 153, cm, 04/23/20 [...] mL, 11 Refills, Maintenance, 01/09/20 10:37:00 EST, [place], [facility]/pharmacy #[id number], 2 sprays Nares, Both 3 times a day, 153, cm, 01/09/20 9:49:00 EST, Height, 89.6, kg, 12/26/19 19:50:00 EST, Dry Weight Start Date: 01/09/20 Status: Ordered KlonoPIN 0.5 mg oral tablet 1 tablet = 0.5 mg, By Mouth, 2 times a day, # 14 tablet, 0 Refills, Maintenance, 07/18/20 17:06:00 EDT, Tablet, [facility]/pharmacy #[id number], 153, cm, 07/09/20 [...]
--- OUTSIDE RECORDS SUMMARY | 2023-08-13 20:27 | XMS_ITS | Continuity of Care Document ---
Author Name Unknown Organization [facility] Address [address] [place] [address]- Care Team Providers Care Malware Analyst Name Role Phone Joe Valdez MD Primary Care Physician [phone] Encounter [facility] [place] Date(s): 07/09/20 - 07/16/20 [facility] [address] [place] [address]- [facility] Attending Physician: Joe Valdez MD Allergies, [...] 3 Refills, Maintenance, 02/05/20 11:51:00 EDT, Solution, [facility]/pharmacy #[id number], 153, cm, 02/01/20 9:49:00 EDT, Height, 89.6, kg, 12/26/19 19:50:00 EST, Dry Weight Start Date: 02/05/20 Status: Ordered carBAMazepine 100 mg oral tablet, extended release 200 mg, 2, tablet, By Mouth, 2 times a day, # 360 tablet, Refills 1, Tot. Refills 1, Maintenance, 07/01/20 16:38:00 EDT, Route to Pharmacy Electronically, [facility]/pharmacy #[id number], 153, cm, 04/23/20 14:32:00 [...] 5 Refills, Maintenance, 05/01/20 16:21:00 EDT, Tablet, [facility]/pharmacy #[id number], 153, cm, 04/23/20 14:32:00 [...] 60 capsule, 6 Refills, Maintenance, 04/23/20 15:15:00EDT, [facility]/pharmacy #[id number], 153, cm, 04/23/20 14:32:00 EDT, Height, 89.6, kg, 12/26/19 19:50:00 EST, Dry Weight Start Date: 04/23/20 Status: Ordered Emgality Prefilled Pen 120 mg/mL subcutaneous solution = 120 mg, Subcutaneous Infusion, Every 28 days, # 1 each, 11 Refills, Maintenance, 07/03/20 14:17:00 EDT, [facility]/pharmacy #[id number], 1st dose broke NEEDS [...] 06/25/20 17:13:00 EDT, Route to Pharmacy Electronically, [facility]/pharmacy #[id number], 153, cm, 04/23/20 14:32:00 EDT, Height, 89.6, kg,... Start Date: 06/25/20 Status: Ordered ipratropium nasal 42 mcg/inh spray 2 sprays, Nares, Both, 3 times a day, # 15 mL, 11 Refills, Maintenance, 01/09/20 10:37:00 EST, [place], [facility]/pharmacy #[id number], 2 sprays Nares, Both 3 times a day, 153, cm, 01/09/20 9:49:00 EST, Height, 89.6, kg, 12/26/19 19:50:00 EST, Dry Weight Start Date: 01/09/20 Status: Ordered KlonoPIN 0.5 mg oral tablet 1 tablet = 0.5 mg, By Mouth, 2 times a day, # 14 tablet, 0 Refills, Maintenance, 04/17/20 12:00:00 EDT, Tablet, [facility]/pharmacy #[id number], 153, cm, 02/01/20 9:49:00 EDT, Height, 89.6, kg, 12/26/19 19:50:00 EST, Dry Weight Start Date: 04/17/20 Stop Date: 04/24/20 Status: Ordered lidocaine 1.8% topical film 1 patch, Topically, Daily, leave on up to 12 hours, # 30 each, 11 Refills, Maintenance, 02/22/20 9:39:00 EDT, Film, [facility]/pharmacy #[id number], 1 patch Topically Daily,Instr:leave [...] oldest [Reference Range]: 1 Height 153 cm (07/09/20 1:32 PM) Social History Social History Type Response Smoking Status Never smoker; Type: Cigarettes entered on: 06/28/18 Sex
--- OUTSIDE RECORDS SUMMARY | 2023-08-13 20:27 | XMS_ITS | Continuity of Care Document ---
Author Name Unknown Organization [facility] Address [address] [place] [address]- Care Team Providers Care Director Of Recruiting Name Role Phone Joe Valdez MD Primary Care Physician [place] [facility] [place](s): 01/09/20 - 01/16/20 [facility] Adult [address] [place] [address]- [facility] Encounter Diagnosis Chronic rhinitis(Discharge Diagnosis) - 01/09/20 Adverse drug effect(Discharge Diagnosis) - 01/09/20 Bipolar disease, chronic(Discharge Diagnosis) - 01/09/20 Major depression(Discharge Diagnosis) - 01/09/20 Asthma, moderate persistent(Discharge Diagnosis) - 01/09/20 Fibromyalgia(Discharge Diagnosis) - 01/09/20 Migraine(Discharge Diagnosis) - 01/09/20 DM (diabetes mellitus), type 2(Discharge Diagnosis) - 01/09/20 Attending Physician: Joe Valdez MD Allergies, Adverse [...] 12/28/19 8:12:00 EST, Route to Pharmacy Electronically, [facility]/pharmacy #[id number], 153, cm, 12/28/19 7:42:00EST, Height, 89.6, [...] 0 Refills, Maintenance, 01/01/20 14:51:00 EST, Tablet, [facility]/pharmacy #[id number], 153, cm, 12/28/19 7:42:00 EST, Height, [...] to each arm subcutaneously. Patient tolerated well. [facility] [id number] EXP 11/2020 LOT [id number] [facility] [id number]... Start Date: 06/02/19 Status: Ordered EpiPen 2-Freeman [...] 10/13/19 7:45:01 EST, Route to Pharmacy Electronically, [id number], [facility]/pharmacy #[id number] Start Date: 10/13/19 Status: Ordered ipratropium nasal 42 mcg/inh spray 2 sprays, Nares, Both, 3 times a day, # 15 mL, 11 Refills, Maintenance, 01/09/20 10:37:00 EST, [place], [facility]/pharmacy #[id number], 2 sprays Nares, Both 3 times a day, 153, cm, 01/09/20 9:49:00 EST, Height, 89.6, kg, 12/26/19 19:50:00 EST, Dry Weight Start Date: 01/09/20 Status: Ordered KlonoPIN 0.5 mg oral tablet 1 tablet = 0.5 mg, By Mouth, 2 times a day, # 24 tablet, 0 Refills, Maintenance, 12/30/19 10:27:00 EST, Tablet, [facility]/pharmacy #[id number], 153, cm, 12/28/19 7:42:00 EST, Height, 89.6, kg, 12/26/19 19:50:00 EST, Dry Weight Start Date: 12/30/19 Status: Ordered Linzess 290 mcg oral capsule 1 capsule = 290 mcg, By Mouth, Daily, # 30 capsule, 0 Refills, Maintenance, 01/01/20 14:50:00 EST, Capsule, [facility]/pharmacy #[id number], 153, cm, 12/28/19 7:42:00 EST, Height, [...] tablet = 20 mg, By Mouth, Daily, Soumyamarcos Jaquez, # 30 tablet, 11 Refills, Maintenance, 05/26/19 8:03:22 EDT, EC Tablet Start Date: 05/26/19 Status: Ordered Ozempic (0.25 mg or 0.5 mg dose) 2 mg/1.5 mL subcutaneous solution = 0.25 mg, Subcutaneous Injection, Every week, # 1.5 mL, 1 Refills, Maintenance, 12/28/19 8:08:00 EST, Solution, [facility]/pharmacy #[id number], 153, cm, 12/28/19 7:42:00 EST, Height, 89.6, kg, 12/26/19 19:50:00EST, Dry Weight Start Date: 12/28/19 Stop Date: 02/22/20 Status: Ordered Paragard IUD Maintenance, 05/05/19 10:52:19 EDT, Compound Start Date: 05/05/19 Status: Ordered PARoxetine 10 mg oral tablet 10 mg, 1, tablet, By Mouth, Daily, new dose, # 30 tablet, Refills 1, Tot. Refills 1, Maintenance, 01/09/20 10:37:00 EST, Route to Pharmacy Electronically, [facility]/pharmacy #[id number], 153, cm, 01/09/20 9:49:00 EST, Height, 89.6, kg, 12/26/19 19:50:00 EST, Dry... Start Date: 01/09/20 Status: Ordered see below see below, See [...] Dates Health Status Clinical Service Informant Chronic rhinitis Discharge Diagnosis 01/09/20 Adverse drug effect Discharge Diagnosis 01/09/20 Bipolar disease, chronic Discharge Diagnosis 01/09/20 Major depression Discharge Diagnosis 01/09/20 Asthma, moderate persistent Discharge Diagnosis 01/09/20 Fibromyalgia Discharge Diagnosis 01/09/20 Migraine Discharge Diagnosis 01/09/20 DM (diabetes mellitus), type 2 Discharge Diagnosis 01/09/20 Vital Signs Most recent to oldest [Reference Range]: 1 Height 153 cm (01/09/20 9:49 AM) Oxygen Saturation [94-100 %] 98 % (01/09/20 9:49 AM) Pulse Rate [55-90 bpm] 92 bpm *H* (01/09/20 9:49 AM) Blood Pressure [90-138/55-84 mm Hg] 120/ 80mm Hg (01/09/20 9:49 AM) Respiratory Rate [16-30 br/min] 18 br/mi n (01/09/20 9:49 AM) Temperature [96.8-100.4 DegF] 97.9 DegF (01/09/20 9:49 AM) Blood pressure sites Arm, left (01/09/20 9:49 AM) Temperature Route Oral (01/09/20 9:49 AM) Social History Social History Type Response Smoking Status Never smoker; Type: Cigarettes entered on: 06/28/18 Sex
--- OUTSIDE RECORDS SUMMARY | 2023-08-13 20:27 | XMS_ITS | Continuity of Care Document ---
Author Name Unknown Organization [facility] Address [address] [place] [address]- Care Team Providers Care Architectural Engineer Name Role Phone Polly QUACH, Estelle Charles Primary Care Physic gustavo Encounter [facility] Date(s): 09/26/21 - 10/26/21 [facility] [address] [place] [address]- Allergies, Adverse Reactions, Alerts Substance Reaction Severity [...] Refills, Maintenance, 05/07/21 9:18:00 EDT, Tablet, [facility]/pharmacy #[id number], Partial fill [...] 13:59:00 EST,... Start Date: 05/14/21 Status: Ordered [facility] VITAMIN D3 25 MCG SOFTGEL TAKE [...] Refills, Maintenance, 12/10/20 17:49:00 EST, [facility], 153, cm, 12/10/20 15:22:00 EST, Height, 79.6, [...] 2 Refills, Maintenance, 10/03/21 15:17:00 EST, Nasal [place], [facility]/pharmacy #0693, Partial fill [...] mL, 11 Refills, Maintenance, 10/03/21 15:19:00 EST, [place], [facility]/pharmacy #0693, 2 sprays [...] 0 Refills, Maintenance, 09/03/21 9:37:00 EDT, Tablet, [facility]/pharmacy #0693, 153, cm, [...] EST, Supply Start Date: 10/03/21 Status: Ordered [place] 0.65% nasal spray 2 sprays, Nares, Both, 4 times a day, # 1 each, 0 Refills, Maintenance, 06/23/21 9:54:00 EDT, [facility]/pharmacy #[id number], Partial fill upon patient request if the prescription is for a schedule II opioid drug., 2 sprays Nares, Both 4 times a day, 153, cm, 08/... Start Date: 06/23/21 Status: Ordered omeprazole 20 mg oral delayed release tablet 1 tablet = 20 mg, By Mouth, Daily, # 90 tablet, 0 Refills, Maintenance, 10/03/21 15:20:00 EST, EC Tablet, [facility]/pharmacy #[id number], 153, cm, 10/02/21 11:33:00 EST, Height, 80, kg, 09/02/21 13:29:00 EDT, Dry Weight Start Date: 10/03/21 Stop Date: 01/01/22 Status: Ordered ondansetron 4 mg oral tablet 1 tablet = 4 mg, By Mouth, Every 8 hours, PRN as needed for nausea/vomiting, # 15 tablet, 0 Refills, Maintenance, 10/03/21 15:20:00 EST, Tablet, [facility]/pharmacy #[id number], Partial fill [...] M79.7HEIGHT- 5' WEIGHT- 175LBS LIFETIME NEED FAX: [phone], 02/03/21 14:22:00 EDT, Supply Start Date: 02/03/21 [...] Refills, Maintenance, 11/28/20 13:19:00 EST, Aerosol, [facility]/pharmacy #[id number], Partial fill upon patient request if the prescription is for a schedule II opioid drug., 153, cm, 11/28/20 12:47:00 EST, Height, 79.6, kg,... Start Date: 11/28/20 Status: Ordered topiramate 25 mg oral tablet 2 tablet, By Mouth, 2 times a day, # 360 tablet, 1 Refills, [facility], 153, cm, 08/21/21 11:10:00 EDT, Height, 79.6, [...] 3 Refills, Maintenance, 12/19/20 11:58:00 EST, Capsule, [facility]/pharmacy #[id number], [...]
--- OUTSIDE RECORDS SUMMARY | 2023-08-13 20:27 | XMS_ITS | Continuity of Care Document ---
Author Name Unknown Organization [facility] Address [address] [place] [address]- Care Team Providers Care Health Center Manager Name Role Phone Andrew COREAS, Loreta Diaz Primary Care Physician [phone] [place] [facility] [place] 02/05/23 [facility] [address] [place] [address]- Allergies, Adverse Reactions, Alerts Substance Reaction Severity [...] kg, 02/0... Start Date: 05/14/21 Status: Ordered clonazePAM 0.5 [...] EST, [facility], 153, cm, 12/10/20 15:22:00 EST, Height, 79.6, [...] capsule, 1 Refills, Maintenance, 10/03/21 15:20:00 EST, [facility]/pharmacy #0693, 153, cm, 10/02/21 11:33:00 EST, Height, [...] 2 Refills, Maintenance, 10/03/21 15:17:00 EST, Nasal [place], [facility]/pharmacy #[id number], Partial [...] mL, 11 Refills, Maintenance, 10/03/21 15:19:00 EST, [place], [facility]/pharmacy #0693, 2 [...] EST, Supply Start Date: 10/03/21 Status: Ordered [place] 0.65% nasal spray 2 sprays, Nares, Both, [...] each, 0 Refills, Maintenance, 12/26/20 14:56:00 EST, [facility], Ok to substitute for [...] M79.7HEIGHT- 5' WEIGHT- 175LBS LIFETIME NEED FAX: [phone], 02/03/21 14:22:00 EDT, Supply Start Date: 02/03/21 [...] # 360 tablet, 1 Refills, [facility], 153, cm, 08/21/21 11:10:00 EDT, Height, 79.6, [...] Active 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 Hidradenitis suppurativa Confirmed Active [...] Team Personnel Name: Kathy Mendoza RN Position: [facility] RN Member Role: Primary Care Nurse Name: Nevin Smith [facility] Associate Professional Member Role: Primary Care Nurse Address: Address: [address] [place] [address] [place] [address]- [place] Name: Bradly Bucio Position: [facility] RN Member Role: Primary Care Nurse Name: Elana Silver RN Position: [facility] RN Member Role: Primary Care Nurse Name: Adriana Lamar RN Position: [facility] RN Member Role: Primary Care Nurse Name: Lory Gillis RN Position: [facility] RN Member Role: Primary Care Nurse Name: Levy Buenrostro RN Position: [facility] RN Member Role: Primary Care Nurse Name: Isabela Quiroz RN Position: [facility] Outreach Member Role: Primary Care Nurse Name: Keyanna Michaels RN Position: [facility] RN Member Role: Primary Care Nurse Name: Loreta Morales NP Position: [facility] Associate Professional Member Role: PCP Address: Address: [address] [place] [address]- [place] Care Team Related Persons Name: JESSICA LAUREN Address: home [address] [place] [address] Name: LAUREN ALDANA Address: home [address] [place] [address]
--- OUTSIDE RECORDS SUMMARY | 2023-08-13 20:27 | XMS_ITS | Continuity of Care Document ---
Author Name Unknown Organization [facility] Address [address] [place] [address]- Care Team Providers Care Anthropology Instructor Name Role Phone Joe Valdez MD Primary Care Physician [phone] [place] [facility] [place] 02/01/20 - 02/08/20 [facility] [address] [place] [address]- [place] Encounter Diagnosis Major depression(Discharge Diagnosis) - 02/01/20 Bipolar disease, chronic(Discharge Diagnosis) - 02/01/20 Asthma, moderate persistent(Discharge Diagnosis) - 02/01/20 Chronic rhinitis(Discharge Diagnosis) - 02/01/20 Fibromyalgia, primary holyk pain mnt/ failed lyrica/lamotrigine/naltrexone/gabapentin(Discharge Diagnosis) - 02/01/20 PTSD (post-traumatic stress disorder); pyschiatry(Discharge Diagnosis) - 02/01/20 Attending Physician: Joe Valdez MD Allergies, Adverse [...] 01/18/20 17:04:00 EST, Route to Pharmacy Electronically, [facility]/pharmacy #[id number], 153, cm, 01/09/20 9:49:00 EST, [...] 0 Refills, Maintenance, 01/01/20 14:51:00 EST, Tablet, [facility], 153, cm, 12/28/19 [...] Refills, Maintenance, 02/01/20 9:58:00 EDT, EC Capsule, [facility]/pharmacy #0693, 153, cm, 02/01/20 9:49:00 EDT, Height, 89.6, kg, 12/26/19 19:50:00 EST, Dry... Start Date: 02/01/20 Status: Ordered Emgality Prefilled Pen 120 mg/mL subcutaneous solution = 120 mg, Subcutaneous Infusion, Every 28 days, First injection given in office, patient supplied meds. Two injections given per order one to each arm subcutaneously. Patient tolerated well. [facility] [id number] EXP 11/2020 LOT [id number] [facility] [id number]... Start Date: 06/02/19 Status: Ordered EpiPen 2-Freeman [...] 10/13/19 7:45:01 EST, Route to Pharmacy Electronically, [id number], [facility]/pharmacy #[id number] Start Date: 10/13/19 Status: Ordered ipratropium nasal 42 mcg/inh spray 2 sprays, Nares, Both, 3 times a day, # 15 mL, 11 Refills, Maintenance, 01/09/20 10:37:00 EST, [place], [facility]/pharmacy #[id number], 2 sprays Nares, Both 3 times a day, 153, cm, 01/09/20 9:49:00 EST, Height, 89.6, kg, 12/26/19 19:50:00 EST, Dry Weight Start Date: 01/09/20 Status: Ordered KlonoPIN 0.5 mg oral tablet 1 tablet = 0.5 mg, By Mouth, 2 times a day, # 24 tablet, 0 Refills, Maintenance, 12/30/19 10:27:00 EST, Tablet, [facility]/pharmacy #[id number], 153, cm, 12/28/19 7:42:00 EST, Height, 89.6, kg, 12/26/19 19:50:00 EST, Dry Weight Start Date: 12/30/19 Status: Ordered Linzess 290 mcg oral capsule 1 capsule = 290 mcg, By Mouth, Daily, # 30 capsule, 0 Refills, Maintenance, 01/01/20 14:50:00 EST, Capsule, [facility]/pharmacy #0693, 153, cm, 12/28/19 7:42:00 EST, [...] 1 Refills, Maintenance, 12/28/19 8:08:00 EST, Solution, [facility]/pharmacy #[id number], 153, cm, 12/28/19 7:42:00 EST, [...] Effective Dates Health Status Clinical Service Informant Major depression Discharge Diagnosis 02/01/20 Bipolar disease, chronic Discharge Diagnosis 02/01/20 Asthma, moderate persistent Discharge Diagnosis 02/01/20 Chronic rhinitis Discharge Diagnosis 02/01/20 Fibromyalgia, primary holyk pain mnt/ failed lyrica/lamotrigin e/naltrexone/[place] pentin Discharge Diagnosis 02/01/20 PTSD (post-traumatic stress disorder); pyschiatry Discharge Diagnosis 02/01/20 Vital Signs Most recent to oldest [Reference Range]: 1 Height 153 cm (02/01/20 9:49 AM) Blood Pressure [90-138/55-84 mm Hg] 110/ 70mm Hg (02/01/20 9:49 AM) Respiratory Rate [16-30 br/min] 16 br/mi n (02/01/20 9:49 AM) Temperature [96.8-100.4 DegF] 97.6 DegF (02/01/20 9:49 AM) Blood pressure sites Arm, left (02/01/20 9:49 AM) Temperature Route Oral (02/01/20 9:49 AM) Social History Social History Type Response Smoking Status Never smoker; Type: Cigarettes entered on: 06/28/18 Sex
--- OUTSIDE RECORDS SUMMARY | 2023-08-13 20:27 | XMS_ITS | Continuity of Care Document ---
Author Name Unknown Organization [facility] Address [address] [place] [address]- Care Team Providers Care Vb Net Programmer Name Role Phone Estelle Matias MD Primary Care Physic gustavo En[place] [facility] [place] Date(s): 11/03/21 - 12/25/[address] [id number] Attending Physician: Estelle Matias MD Admitting Physician: Estelle Matias MD Referring Physician: Estelle Matias MD Allergies, Adverse Reactions, [...] 10/03/21 15:12:00 EST, Route to Pharmacy Electronically, [facility]/pharmacy #[id number], 153, cm, 10/02/21 11:33:00 EST, [...] Maintenance, 05/07/21 9:18:00 EDT, Tablet, [facility]/pharmacy #0672, Partial fill upon patient request if the [...] 5' WEIGHT- 175LBS LIFETIME NEED dx n39.46 Soumyamarcos Murphys, 10/03/21 17:44:00 EST, Soumya Quinone... Start Date: 10/03/21 Status: Ordered docusate sodium 100 mg oral capsule 1 capsule, By Mouth, 2 times a day, PRN NEEDED FOR CONSTIPATION, # 60 capsule, 5 Refills, Maintenance, 12/10/20 17:49:00 EST, [facility], 153, cm, 12/10/20 15:22:00 EST, Height, 79.6, [...] 2 Refills, Maintenance, 10/03/21 15:17:00 EST, Nasal [place], [facility]/pharmacy #0693, Partial fill upon patient [...] cm, 12/27/20 8:50:00 EST, Height, 79.6, kg, 12/31/20 21:34:00 EST, Dry Weight Start Date: 12/30/20 [...] 09/03/21 13:19:00 EDT, Route to Pharmacy Electronically, [facility]/pharmacy #[id number], 153, cm, 09/02/21 13:58:00 EDT, Height, 80, kg, 1... Start Date: 09/03/21 Status: Ordered ipratropium nasal 42 mcg/inh spray 2 sprays, Nares, Both, 3 times a day, # 15 mL, 11 Refills, Maintenance, 10/03/21 15:19:00 EST, [place], [facility]/pharmacy #0693, 2 sprays Nares, Both [...] 0 Refills, Maintenance, 12/04/21 12:17:00 EST, Tablet, [facility]/pharmacy #0693, 153, cm, 10/02/21 11:33:00 EST, [...] 0 Refills, Maintenance, 10/03/21 15:14:00 EST, Capsule, [facility]/pharmacy #0693, Partial fill upon patient [...] EST, Supply Start Date: 10/03/21 Status: Ordered [place] 0.65% nasal spray 2 sprays, Nares, Both, [...] Refills, Maintenance, 10/03/21 15:20:00 EST, EC Tablet, [facility]/pharmacy #0693, 153, cm, 10/02/21 11:33:00 EST, Height, 80, kg, 09/02/21 13:29:00 EDT, Dry Weight Start Date: 10/03/21 Stop Date: 01/01/22 Status: Ordered ondansetron 4 mg oral tablet 1 tablet = 4 mg, By Mouth, Every 8 hours, PRN as needed for nausea/vomiting, # 15 tablet, 0 Refills, Maintenance, 10/03/21 15:20:00 EST, Tablet, [facility]/pharmacy #0693, Partial fill upon [...] Unknown, 1 Refills, Maintenance, 10/03/21 15:21:00 EST, [facility]/pharmacy #0693, 90, INJECT 1MG INTO THE SKIN WEEKLY, 153, cm, 10/02/21 11:33:00 EST,Height, 80, kg, 09/02/21 13:29:00 EDT, Dry Weight Start Date: 10/03/21 Status: Ordered Paragard IUD Maintenance, 05/05/19 10:52:19 EDT, Compound Start Date: 05/05/19 Status: Ordered PEG-3350 with Electrolytes (Eqv-NuLYTELY) oral powder for reconstitution See Instructions, as directed, # 1 each, 0 Refills, Maintenance, 12/26/20 14:56:00 EST, [facility], Ok to substitute [...] M79.7HEIGHT- 5' WEIGHT- 175LBS LIFETIME NEED FAX: [phone], 02/03/21 14:22:00 EDT, Supply Start Date: 02/03/21 Status: Ordered see below see below, See Instructions, # 1 each, Refills 0, Tot. Refills 0, Maintenance, [place] Injured hip.,03/23/19 12:14:05 EDT, Compound Start Date: 03/23/19 Status: Ordered SMALL COMRESSION GLOVES SMALL COMRESSION GLOVES, See Instructions, # 1 pair, Refills 0, Tot. Refills 0, Maintenance, DX: Fibromyalgia Soumya Murphys, 09/15/19 8:00:52 EDT, Compound Start Date: [...] a day, # 360 tablet, 1 Refills, [facility] 89[facility], 153, cm, 08/21/21 11:10:00 EDT, Height, 79.6, [...]
--- OUTSIDE RECORDS SUMMARY | 2023-08-13 20:27 | XMS_ITS | Continuity of Care Document ---
Author Name Unknown Organization [facility] Address [address] [place] [address]- Care Team Providers Care Ginger Farmer Name Role Phone Polly QUACH, Estelle Charles Primary Care Physic gustavo [place] [facility] [place] [facility] [address] [place] [address]- [place] Encounter Diagnosis Flank pain(Discharge Diagnosis) - 08/21/21 Attending Physician: Elana Perera MD Allergies, Adverse Reactions, Alerts Substance Reaction [...] EST, Route to Pharmacy Electronically, [facility]/pharmacy #[id number], 153, cm, 01/01/21 8:33:00 EST, Height, [...] Maintenance, 05/07/21 9:18:00 EDT, Tablet, [facility]/pharmacy #0693, Partial fill upon patient request if [...] Start Date: 05/14/21 Status: Ordered [facility] VITAMIN D3 25 MCG SOFTGEL TAKE 1 [...] Refills, Maintenance, 12/10/20 17:49:00 EST, [facility], 153, cm, 12/10/20 15:22:00 EST, Height, 79.6, [...] Refills, Maintenance, 06/07/21 14:13:00 EDT, [facility], 153, cm, 05/14/21 12:43:00 EDT, Height, 79.6, [...] EDT, Route to Pharmacy Electronically, [facility]/pharmacy #0693, 153, cm, 07/09/20 13:32:00 EDT, Height, 89.6, kg,... Start Date: 07/21/20 Status: Ordered ipratropium nasal 42 mcg/inh spray 2 sprays, Nares, Both, 3 times a day, # 15 mL, 11 Refills, Maintenance, 01/09/20 10:37:00 EST, [place], [facility]/pharmacy #0693, 2 sprays Nares, Both 3 times a day, 153, cm, 01/09/20 9:49:00 EST, Height, 89.6, kg, 12/26/19 19:50:00 EST, Dry Weight Start Date: 01/09/20 Status: Ordered ketoconazole 2% topical shampoo 1 application, Topically, Once, # 120 mL, 1 Refills, Soft Stop, 05/07/21 8:34:00 EDT, Shampoo, [facility]/pharmacy #0693, 1 application Topically Once, 153, cm, 05/07/21 7:55:00 EDT, Height, 79.6, kg, 12/30/20 13:59:00 EST, Dry Weight Start Date: 05/07/21 Status: Ordered KlonoPIN 0.5 mg oral tablet 1 tablet = 0.5 mg, By Mouth, 2 times a day, # 60 tablet, 0 Refills, Maintenance, 07/01/21 15:21:00 EDT, Tablet, [facility]/pharmacy #0693, 153, cm, 06/23/21 9:40:00 EDT, Height, 79.6, kg, 12/30/20 13:59:00 EST, Dry Weight Start Date: 07/01/21 Status: Ordered lidocaine 1.8% topical film 1 patch, Topically, Daily, leave on up to 12 hours, # 30 each, 11 Refills, Maintenance, 02/22/20 9:39:00 EDT, [place], [facility]/pharmacy #0693, 1 patch Topically Daily,Instr:leave on up to 12 hours, 153, cm,02/01/20 9:49:00 EDT, Height, 89.6, kg, 12/26/19 19... Start Date: 02/22/20 Status: Ordered Linzess 290 mcg oral capsule TAKE 1 CAPSULE BY MOUTH EVERY DAY Start Date: 05/07/21 Status: Ordered [place] 0.65% nasal spray 2 sprays, Nares, Both, 4 times a day, # 1 each, 0 Refills, Maintenance, 06/23/21 9:54:00 EDT, [facility]/pharmacy #0693, Partial fill upon patient request if the prescription is for a schedule II opioid drug., 2 sprays Nares, Both 4 times a day, 153, cm, ... Start Date: 06/23/21 Status: Ordered omeprazole 20 mg oral delayed release tablet 1 tablet = 20 mg, By Mouth, Daily, # 90 tablet, 0 Refills, Maintenance, 09/29/20 16:38:00 EST, EC Tablet, [facility]/pharmacy #0693, 153, cm, 08/28/20 15:44:00 EDT, Height, 89.6, kg, 12/26/19 19:50:00 EST, Dry Weight Start Date: 09/29/20 Stop Date: 12/28/20 Status: Ordered ondansetron 4 mg oral tablet 1 tablet = 4 mg, By Mouth, Every 8 hours, PRN as needed for nausea/vomiting, # 15 tablet, 0 Refills, Maintenance, 11/24/20 14:17:00 EST, Tablet, [facility], Partial fill upon patient [...] Unknown, 1 Refills, Maintenance, 06/30/21 18:41:00 EDT, [facility]/pharmacy #0693, 90, INJECT 1MG INTO THE SKIN WEEKLY, 153, cm, 06/23/21 9:40:00 EDT, Height, 79.6, kg, 12/30/20 13:59:00 EST, Dry Weight Start Date: 06/30/21 Status: Ordered Paragard IUD Maintenance, 05/05/19 10:52:19 EDT, Compound Start Date: 05/05/19 Status: Ordered PEG-3350 with Electrolytes (Eqv-NuLYTELY) oral powder for reconstitution See Instructions, as directed, # 1 each, 0 Refills, Maintenance, 12/26/20 14:56:00 EST, [facility], Ok to substitute for ANY gallon prep, as directed, 153, cm, 12/11/20 16:00:00 EST, Height, 79.6, kg, 11/21/20 21:34:00 EST, Dry Weight Start Date: 12/26/20 Status: Ordered plecanatide 3 mg oral tablet 1 tablet = 3 mg, By Mouth, Daily, # 30 tablet, 0 Refills, Maintenance, 02/14/21 11:40:00 EDT, [facility]/pharmacy #0693, Partial fill upon patient request if [...] LARGE PT USES 4 PER DAY DX: FIBROMDONTRELLGI M79.7 HEIGHT- 5' WEIGHT- 175LBS [...] M79.7HEIGHT- 5' WEIGHT- 175LBS LIFETIME NEED FAX: [phone], 02/03/21 14:22:00 EDT, Supply Start Date: 02/03/21 [...] Maintenance, 11/28/20 13:19:00 EST, Aeros[place], [facility]/pharmacy #3965, Partial fill upon patient request if the prescription is for a schedule II opioid drug., 153, cm, 11/28/20 12:47:00 EST, Height, 79.6, kg,... Start Date: 11/28/20 Status: Ordered tamsulosin 0.4 mg oral capsule 0.4 mg, 1, capsule, By Mouth, Daily, # 7 capsule, Refills 0, Tot. Refills 0, Maintenance, 08/21/21 12:51:00 EDT, Route to Pharmacy Electronically, [facility]/pharmacy #0693, Partial fill upon patient request if the prescription is for a schedule II opioid dr... Start Date: 08/21/21 Stop Date: 08/28/21 Status: Ordered topiramate 25 mg oral tablet 2 tablet, By Mouth, 2 times a day, # 360 tablet, 1 Refills, Maintenance, 03/03/21 18:31:00 EDT, [facility], [facility], cm, 02/28/21 11:14:00 EDT, Height, 79.6, kg, 12/30/20 13:59:00 EST, Dry Weight Start Date: 03/03/21 Status: Ordered topiramate 25 mg oral tablet 2 tablet = 50 mg, By Mouth, 2 times a day, # 360 tablet, 1 Refills, Maintenance, 08/09/20 9:35:00 EDT, Tablet, [facility]/pharmacy #0693, 153, cm, 08/05/20 13:58:00 EDT, Height, [...] 3 Refills, Maintenance, 12/19/20 11:58:00 EST, Capsule, [facility]/pharmacy #0693, Partial fill upon patient request if [...] Diagnosis Diagnosis Type Effective Dates Health Status Clini charli Service Informant Flank pain Discharge Diagnosis 08/21/21 Vital Signs Most recent to oldest [Reference Range]: 1 Height 153 cm (08/21/21 11:10 AM) Oxygen Saturation [94-100 %] 95 % (08/21/21 11:10 AM) Pulse Rate [55-90 bpm] 109 bpm *H* (08/21/21 11:10 AM) Blood Pressure [90-138/55-84 mm Hg] 120/ 74mm Hg (08/21/21 11:10 AM) Respiratory Rate [16-30 br/min] 26 br/mi n (08/21/21 11:10 AM) Blood pressure sites Arm, right (08/21/21 11:10 AM) Social History Social History Type Response Smoking Status Never (less than 100 in lifetime);Never entered on: 03/24/21 Sex
--- OUTSIDE RECORDS SUMMARY | 2023-08-13 20:27 | XMS_ITS | Continuity of Care Document ---
Author Name Unknown Organization [facility] [place] [facility] Address [address] [place] [address]- Care Team Providers Care Landman Name Role Phone Joe Valdez MD Primary Care Physician [phone] Encounter [facility] Date(s): 02/22/20 - 02/29/20 [facility] Adult [address] [place] [address]- [facility] Encounter Diagnosis Bipolar disease, chronic(Discharge Diagnosis) - 02/22/20 Major depression(Discharge Diagnosis) - 02/22/20 Chronic pain disorder/fibromyalgia(Discharge Diagnosis) - 02/22/20 DM (diabetes mellitus), type 2(Discharge Diagnosis) - 02/22/20 Fibromyalgia, primary holyk pain mnt/ failed lyrica/lamotrigine/naltrexone/gabapentin(Discharge Diagnosis) - 02/22/20 Asthma, moderate persistent(Discharge Diagnosis) - 02/22/20 Migraine(Discharge Diagnosis) - 02/22/20 PTSD (post-traumatic stress disorder); pyschiatry(Discharge Diagnosis) - 02/22/20 Hepatic steatosis(Discharge Diagnosis) - 02/22/20 Chronic rhinitis(Discharge Diagnosis) - 02/22/20 Attending Physician: Joe Valdez MD Allergies, Adverse [...] 3 Refills, Maintenance, 02/05/20 11:51:00 EDT, Solution, [facility]/pharmacy #[id number], 153, cm, 02/01/20 9:49:00 EDT, Height, 89.6, kg, 12/26/19 19:50:00 EST, Dry Weight Start Date: 02/05/20 Status: Ordered carBAMazepine 100 mg oral tablet, extended release 200 mg, 2, tablet, By Mouth, 2 times a day, # 120 tablet, Refills 2, Tot. Refills 2, Maintenance, 01/18/20 17:04:00 EST, Route to Pharmacy Electronically, [facility]/pharmacy #[id number], 153, cm, 01/09/20 9:49:00 [...] 0 Refills, Maintenance, 01/01/20 14:51:00 EST, Tablet, [facility]/pharmacy #[id number], 153, cm, 12/28/19 7:42:00 [...] Refills, Maintenance, 02/01/20 9:58:00 EDT, EC Capsule, [facility]/pharmacy #[id number], 153, cm, 02/01/20 9:49:00 EDT, Height, 89.6, kg, 12/26/19 19:50:00 EST, Dry... Start Date: 02/01/20 Status: Ordered Emgality Prefilled Pen 120 mg/mL subcutaneous solution = 120 mg, Subcutaneous Infusion, Every 28 days, First injection given in office, patient supplied meds. Two injections given per order one to each arm subcutaneously. Patient tolerated well. [facility] [id number] EXP 11/2020 LOT [id number] [facility] [id number]... Start Date: 06/02/19 Status: Ordered EpiPen 2-Freeman [...] 10/13/19 7:45:01 EST, Route to Pharmacy Electronically, [id number], [facility]/pharmacy #[id number] Start Date: 10/13/19 Status: Ordered ipratropium nasal 42 mcg/inh spray 2 sprays, Nares, Both, 3 times a day, # 15 mL, 11 Refills, Maintenance, 01/09/20 10:37:00 EST, [place], [facility]/pharmacy #[id number], 2 sprays Nares, Both 3 times a day, 153, cm, 01/09/20 9:49:00 EST, Height, 89.6, kg, 12/26/19 19:50:00 EST, Dry Weight Start Date: 01/09/20 Status: Ordered KlonoPIN 0.5 mg oral tablet 1 tablet = 0.5 mg, By Mouth, 2 times a day, # 24 tablet, 0 Refills, Maintenance, 02/21/20 16:50:00 EDT, Tablet, [facility]/pharmacy #[id number], 153, cm, 02/01/20 9:49:00 EDT, Height, 89.6, kg, 12/26/19 19:50:00 EST, Dry Weight Start Date: 02/21/20 Status: Ordered lidocaine 1.8% topical film 1 patch, Topically, Daily, leave on up to 12 hours, # 30 each, 11 Refills, Maintenance, 02/22/20 9:39:00 EDT, Film, [facility]/pharmacy #[id number], 1 patch Topically [...] 1 Refills, Maintenance, 02/22/20 8:08:00 EDT, Solution, [facility]/pharmacy #[id number], 153, cm, 02/01/20 [...] Tot. Refills 0, Maintenance, DX: Fibromyalgia Soumyamarcos Jaquez, 09/15/19 8:00:52 EDT, Compound Start Date: [...] 0 Refills, Maintenance, 02/22/20 9:41:00 EDT, Tablet, [facility]/pharmacy #[id number], 153, cm, 02/01/20 [...] Service Informant Bipolar disease, chronic Discharge Diagnosis 02/22/20 Major depression Discharge Diagnosis 02/22/20 Chronic pain disorder/fibromya lgia Discharge Diagnosis 02/22/20 DM (diabetes mellitus), type 2 Discharge Diagnosis 02/22/20 Fibromyalgia, primary holyk pain mnt/ failed lyrica/lamotrigin e/naltrexone/[place] pentin Discharge Diagnosis 02/22/20 Asthma, moderate persistent Discharge Diagnosis 02/22/20 Migraine Discharge Diagnosis 02/22/20 PTSD (post-traumatic stress disorder); pyschiatry Discharge Diagnosis 02/22/20 Hepatic steatosis Discharge Diagnosis 02/22/20 Chronic rhinitis Discharge Diagnosis 02/22/20 Social History Social History Type Response Smoking Status Never smoker; Type: Cigarettes entered on: 06/28/18 Sex
--- OUTSIDE RECORDS SUMMARY | 2023-08-13 20:27 | XMS_ITS | Continuity of Care Document ---
Author Name Unknown Organization [facility] Address [address] [place] [address] [address] [place] [address]- Care Team Providers Care Database Developer Name Role Phone Courtney QUACH, Joe Carrion Primary Care Physician Encounter [facility] Date(s): 12/10/20 - 01/09/[address] [place] [address]- Attending Physician: AdmtrFrancisco Admitting Physician: Admtr, Radu8 Referring Physician: Admtr, [id number] Allergies, Adverse Reactions, [...] 3 Refills, Maintenance, 02/05/20 11:51:00 EDT, Solution, [facility]/pharmacy #[id number], 153, cm, 02/01/20 9:49:00 EDT, Height, 89.6, kg, 12/26/19 19:50:00 EST, Dry Weight Start Date: 02/05/20 Status: Ordered carBAMazepine 100 mg oral tablet, extended release 200 mg, 2, tablet, By Mouth, 2 times a day, # 360 tablet, Refills 1, Tot. Refills 1, Maintenance, 07/01/20 16:38:00 EDT, Route to Pharmacy Electronically, [facility]/pharmacy #[id number], 153, cm, 04/23/20 14:32:00 EDT, [...] Refills, Maintenance, 12/10/20 17:49:00 EST, [id number], 153, cm, 12/10/20 15:22:00 EST, Height, 79.6, [...] 07/21/20 23:30:00 EDT, Route to Pharmacy Electronically, [facility]/pharmacy #[id number], 153, cm, 07/09/20 13:32:00 EDT, Height, 89.6, kg,... Start Date: 07/21/20 Status: Ordered ipratropium nasal 42 mcg/inh spray 2 sprays, Nares, Both, 3 times a day, # 15 mL, 11 Refills, Maintenance, 01/09/20 10:37:00 EST, [place], [facility]/pharmacy #[id number], 2 sprays Nares, Both 3 times a day, 153, cm, 01/09/20 9:49:00 EST, Height, 89.6, kg, 12/26/19 19:50:00 EST, Dry Weight Start Date: 01/09/20 Status: Ordered KlonoPIN 0.5 mg oral tablet 1 tablet = 0.5 mg, By Mouth, 2 times a day, # 60 tablet, 0 Refills, Maintenance, 12/26/20 12:54:00 EST, Tablet, [facility]/pharmacy #[id number], 153, cm, 12/11/20 16:00:00 EST, Height, 79.6, kg, 11/21/20 21:34:00EST, Dry Weight Start Date: 12/26/20 Status: Ordered lidocaine 1.8% topical film 1 patch, Topically, Daily, leave on up to 12 hours, # 30 each, 11 Refills, Maintenance, 02/22/20 9:39:00 EDT, Film, [facility]/pharmacy #[id number], 1 patch Topically Daily,Instr:leave on up to 12 hours, 153, cm,02/01/20 9:49:00 EDT, Height, 89.6, kg, 12/26/19 19... Start Date: 02/22/20 Status: Ordered Linzess 290 mcg oral capsule 1 capsule, By Mouth, Daily, # 30 capsule, 0 Refills, Maintenance, 01/06/21 15:57:00 EST, [facility]/pharmacy #[id number], 153, cm, 01/01/21 8:33:00 EST, Height, 79.6, kg, 12/30/20 13:59:00 EST, Dry Weight Start Date: 01/06/21 Status: Ordered metFORMIN 1000 mg oral tablet 1 tablet = 1,000 mg, By Mouth, 2 times a day, new fdose Soumya Jaquez, # 180 tablet, 1 Refills, Maintenance, 10/06/20 13:46:00 EST, Tablet, [facility]/pharmacy #[id number], 153, cm, 08/28/20 15:44:00 EDT, Height, 89.6, kg, 12/26/19 19:50:00 EST, Dry Weight Start Date: 10/06/20 Status: Ordered omeprazole 20 mg oral delayed release tablet 1 tablet = 20 mg, By Mouth, Daily, # 90 tablet, 0 Refills, Maintenance, 09/29/20 16:38:00 EST, EC Tablet, [facility]/pharmacy #[id number], 153, cm, 08/28/20 15:44:00 EDT, Height, 89.6, kg, 12/26/19 19:50:00 EST, Dry Weight Start Date: 09/29/20 Stop Date: 12/28/20 Status: Ordered ondansetron 4 mg oral tablet 1 tablet = 4 mg, By Mouth, Every 8 hours, PRN as needed for nausea/vomiting, # 15 tablet, 0 Refills, Maintenance, 11/24/20 14:17:00 EST, Tablet, [facility], Partial fill upon patient request if the prescription is for a schedule II opioi... Start Date: 11/24/20 Stop Date: 11/29/20 Status: Ordered Ozempic (1 mg dose) 2 mg/1.5 mL subcutaneous solution = 1 mg, Subcutaneous Injection, Every week, # 3 mL, 11 Refills, Maintenance, 06/04/20 17:34:00 EDT,Solution, [facility]/pharmacy #[id number], 153, cm, 04/23/20 14:32:00 EDT, [...] ecc, bx x 2 3referred for colpo Procedures Procedure Date Related Diagnosis Body Site Status History of sleeve gastrectomy Completed Social History Social History Type Response Smoking Status Never smoker; Type: Cigarettes entered on: 06/28/18 Sex
--- OUTSIDE RECORDS SUMMARY | 2023-08-13 20:27 | XMS_ITS | Continuity of Care Document ---
Author Name Unknown Organization [facility] Address [address] [place] [address]- Care Team Providers Care Document Analyst Name Role Phone Anupama COREAS, Len Thomas Primary Care Physician [phone] Encounter [facility] Date(s): 06/24/21 - 07/01/21 [facility] [address] [place], [place] [address] Encounter Diagnosis Acute sinusitis(Discharge Diagnosis) - 06/24/21 Attending Physician: David COREAS, Laurie Referring Physician: Anupaam COREAS, Len Thomas Allergies, Adverse Reactions, Alerts Substance Reaction Severity [...] Maintenance, 02/05/20 11:51:00 EDT, Solution, [facility]/pharmacy #[id number], 153, cm, 02/01/20 9:49:00 EDT, Height, 89.6, kg, 12/26/19 19:50:00 EST, Dry Weight Start Date: 02/05/20 Status: Ordered Alcohol Wipes See Instructions, # 6 each, Refills 11, Tot. Refills 11, Maintenance, DX: DM E11.9 HEIGHT- 5' WEIGHT- 175LBS LIFETIME NEED , 02/03/21 14:21:00 EDT, Supply Start Date: 02/03/21 Status: Ordered Azithromycin 5 Day Dose Pack 250 mg oral tablet 1 pack/packet, By Mouth, Once, # 6 tablet, 0 Refills, Soft Stop, 06/24/21 13:18:00 EDT, Tablet, [facility]/pharmacy #[id number], Partial fill upon patient request if the prescription is for a schedule II opioid drug., 153, cm, 06/23/21 9:40:00 EDT, Height, 79.6, k... Start Date: 06/24/21 Status: Ordered Bedpads See Instructions, # 120 [...] 01/29/21 15:01:00 EST, Route to Pharmacy Electronically, [facility]/pharmacy #[id number], 153, cm, 01/01/21 8:33:00 [...] 0 Refills, Maintenance, 05/07/21 9:18:00 EDT, Tablet, [facility]/pharmacy #[id number], Partial fill upon patient [...] capsule, 5 Refills, Maintenance, 12/10/20 17:49:00 EST, [facility], 153, cm, 12/10/20 15:22:00 EST, Height, 79.6, [...] Refills, Maintenance, 06/07/21 14:13:00 EDT, [facility], 153, cm, 05/14/21 12:43:00 EDT, Height, 79.6, kg, 12/30/20 13:59:00 EST, Dry Weight Start Date: 06/07/21 Status: Ordered Emgality Prefilled Pen 120 mg/mL subcutaneous solution = 120 mg, Subcutaneous Infusion, Every 28 days, # 1 each, 11 Refills, Maintenance, 07/03/20 14:17:00 EDT, [facility]/pharmacy #[id number], 1st dose broke NEEDS ANOTHER, 153, [...] EDT, Route to Pharmacy Electronically, [facility]/pharmacy #[id number], 153, cm, 07/09/20 13:32:00 EDT, Height, 89.6, kg,... Start Date: 07/21/20 Status: Ordered ipratropium nasal 42 mcg/inh spray 2 sprays, Nares, Both, 3 times a day, # 15 mL, 11 Refills, Maintenance, 01/09/20 10:37:00 EST, [place], [facility]/pharmacy #[id number], 2 sprays Nares, Both 3 times a day, 153, cm, 01/09/20 9:49:00 EST, Height, 89.6, kg, 12/26/19 19:50:00 EST, Dry Weight Start Date: 01/09/20 Status: Ordered ketoconazole 2% topical shampoo 1 application, Topically, Once, # 120 mL, 1 Refills, Soft Stop, 05/07/21 8:34:00 EDT, Shampoo, [facility]/pharmacy #[id number], 1 application Topically Once, 153, cm, 05/07/21 7:55:00 EDT, Height, 79.6, kg, 12/30/20 13:59:00 EST, Dry Weight Start Date: 05/07/21 Status: Ordered KlonoPIN 0.5 mg oral tablet 1 tablet = 0.5 mg, By Mouth, 2 times a day, # 60 tablet, 0 Refills, Maintenance, 07/01/21 15:21:00 EDT, Tablet, [facility]/pharmacy #[id number], 153, cm, 06/23/21 9:40:00 EDT, Height, 79.6, kg, 12/30/20 13:59:00 EST, Dry Weight Start Date: 07/01/21 Status: Ordered lidocaine 1.8% topical film 1 patch, Topically, Daily, leave on up to 12 hours, # 30 each, 11 Refills, Maintenance, 02/22/20 9:39:00 EDT, Film, [facility]/pharmacy #[id number], 1 patch Topically Daily,Instr:leave on up to 12 hours, 153, cm,02/01/20 9:49:00 EDT, Height, 89.6, kg, 12/26/19 19... Start Date: 02/22/20 Status: Ordered Linzess 290 mcg oral capsule TAKE 1 CAPSULE BY MOUTH EVERY DAY Start Date: 05/07/21 Status: Ordered [place] 0.65% nasal spray 2 sprays, Nares, Both, 4 times a day, # 1 each, 0 Refills, Maintenance, 06/23/21 9:54:00 EDT, [facility]/pharmacy #[id number], Partial fill upon patient request if the prescription is for a schedule II opioid drug., 2 sprays Nares, Both 4 times a day, 153, cm, 08/... Start Date: 06/23/21 Status: Ordered omeprazole 20 mg oral delayed release tablet 1 tablet = 20 mg, By Mouth, Daily, # 90 tablet, 0 Refills, Maintenance, 09/29/20 16:38:00 EST, EC Tablet, [facility]/pharmacy #[id number], 153, cm, 08/28/20 15:44:00 EDT, Height, 89.6, kg, 12/26/19 19:50:00 EST, Dry Weight Start Date: 09/29/20 Stop Date: 12/28/20 Status: Ordered ondansetron 4 mg oral tablet 1 tablet = 4 mg, By Mouth, Every 8 hours, PRN as needed for nausea/vomiting, # 15 tablet, 0 Refills, Maintenance, 11/24/20 14:17:00 EST, Tablet, [facility], Partial fill upon patient [...] Unknown, 1 Refills, Maintenance, 06/30/21 18:41:00 EDT, [facility]/pharmacy #[id number], 90, INJECT 1MG INTO [...] [facility] [place] to substitute for ANY gallon prep, as directed, 153, cm, 12/11/20 16:00:00 EST, Height, 79.6, kg, 11/21/20 21:34:00 EST, Dry Weight Start Date: 12/26/20 Status: Ordered plecanatide 3 mg oral tablet 1 tablet = 3 mg, By Mouth, Daily, # 30 tablet, 0 Refills, Maintenance, 02/14/21 11:40:00 EDT, [facility]/pharmacy #[id number], Partial fill upon patient [...] M79.7HEIGHT- 5' WEIGHT- 175LBS LIFETIME NEED FAX: [phone], 02/03/21 14:22:00 EDT, Supply Start Date: 02/03/21 [...] 1 Refills, Maintenance, 03/03/21 18:31:00 EDT, [facility], 153, cm, 02/28/21 11:14:00 EDT, Height, 79.6, [...] 07/06/21 9:17:00 EDT, 05/07/21 9:17:00 EDT, Tablet, [facility]/pharmacy #[id number], Partial fill upon patient [...] Dates Health Status Cl inical Service Informant Acute sinusitis Discharge Diagnosis 06/24/21 Social History Social History Type Response Smoking Status Never (less than 100 in lifetime);Never entered on: 03/24/21 Sex
--- OUTSIDE RECORDS SUMMARY | 2023-08-13 20:27 | XMS_ITS | Continuity of Care Document ---
Author Name Unknown Organization [facility] Address [address] [place] [address]- Care Team Providers Care Drum Plater Name Role Phone Joe Valdez MD Primary Care Physician [phone] Encounter [facility] Date(s): 12/11/20 - 12/18/20 [facility] [address] [place] [address]- Encounter Diagnosis Anemia, iron deficiency ;egd/colo neg iron infusions(Discharge Diagnosis) - 12/11/20 Vitamin D deficiency(Discharge Diagnosis) - 12/11/20 Chronic pain disorder/fibromyalgia(Discharge Diagnosis) - 12/11/20 DM (diabetes mellitus), type 2(Discharge Diagnosis) - 12/11/20 Attending Physician: Joe Valdez MD Allergies, Adverse [...] Refills, Maintenance, 02/05/20 11:51:00 EDT, Solution, [facility]/pharmacy #[id number], 153, cm, 02/01/20 9:49:00 EDT, Height, 89.6, kg, 12/26/19 19:50:00 EST, Dry Weight Start Date: 02/05/20 Status: Ordered carBAMazepine 100 mg oral tablet, extended release 200 mg, 2, tablet, By Mouth, 2 times a day, # 360 tablet, Refills 1, Tot. Refills 1, Maintenance, 07/01/20 16:38:00 EDT, Route to Pharmacy Electronically, [facility]/pharmacy #[id number], 153, cm, 04/23/20 14:32:00 EDT, [...] Refills, Maintenance, 12/10/20 17:49:00 EST, [facility], 153, cm, 12/10/20 15:22:00 EST, Height, 79.6, [...] capsule, 5 Refills, Maintenance, 08/24/20 9:47:00 EDT, [facility]/pharmacy #[id number], 153, cm, 08/14/20 14:22:00 EDT, Height, 89.6, kg, 12/26/19 19:50:00 EST, Dry Weight Start Date: 08/24/20 Status: Ordered Emgality Prefilled Pen 120 mg/mL subcutaneous solution = 120 mg, Subcutaneous Infusion, Every 28 days, # 1 each, 11 Refills, Maintenance, 07/03/20 14:17:00 EDT, [facility]/pharmacy #[id number], 1st dose broke NEEDS ANOTHER, [...] 0 Refills, Soft Stop, 12/13/20 11:33:00 EST, Tablet,[facility]/pharmacy #[id number], Partial fill upon patient request [...] 23:30:00 EDT, Route to Pharmacy Electronically, [facility]/pharmacy #[id number], 153, cm, 07/09/20 13:32:00 EDT, Height, 89.6, kg,... Start Date: 07/21/20 Status: Ordered ipratropium nasal 42 mcg/inh spray 2 sprays, Nares, Both, 3 times a day, # 15 mL, 11 Refills, Maintenance, 01/09/20 10:37:00 EST, [place], [facility]/pharmacy #[id number], 2 sprays Nares, Both 3 times a day, 153, cm, 01/09/20 9:49:00 EST, Height, 89.6, kg, 12/26/19 19:50:00 EST, Dry Weight Start Date: 01/09/20 Status: Ordered KlonoPIN 0.5 mg oral tablet 1 tablet = 0.5 mg, By Mouth, 2 times a day, # 60 tablet, 0 Refills, Maintenance, 11/28/20 13:19:00 EST, Tablet, [facility]/pharmacy #[id number], 153, cm, 11/28/20 12:47:00 EST, Height, 79.6, kg, 11/21/20 21:34:00EST, Dry Weight Start Date: 11/28/20 Status: Ordered lidocaine 1.8% topical film 1 patch, Topically, Daily, leave on up to 12 hours, # 30 each, 11 Refills, Maintenance, 02/22/20 9:39:00 EDT, Film, [facility]/pharmacy #[id number], 1 patch Topically Daily,Instr:leave on [...] 1 Refills, Maintenance, 10/06/20 13:46:00 EST, Tablet, [facility]/pharmacy #[id number], 153, cm, 08/28/20 15:44:00 EDT, Height, 89.6, kg, 12/26/19 19:50:00 EST, Dry Weight Start Date: 10/06/20 Status: Ordered omeprazole 20 mg oral delayed release tablet 1 tablet = 20 mg, By Mouth, Daily, # 90 tablet, 0 Refills, Maintenance, 09/29/20 16:38:00 EST, EC Tablet, [facility]/pharmacy #[id number], 153, cm, 08/28/20 15:44:00 EDT, Height, 89.6, kg, 12/26/19 19:50:00 EST, Dry Weight Start Date: 09/29/20 Stop Date: 12/28/20 Status: Ordered ondansetron 4 mg oral tablet 1 tablet = 4 mg, By Mouth, Every 8 hours, PRN as needed for nausea/vomiting, # 15 tablet, 0 Refills, Maintenance, 11/24/20 14:17:00 EST, Tablet, [facility], Partial fill upon patient request if the prescription is for a schedule II opioi... Start Date: 11/24/20 Stop Date: 11/29/20 Status: Ordered Ozempic (1 mg dose) 2 mg/1.5 mL subcutaneous solution = 1 mg, Subcutaneous Injection, Every week, # 3 mL, 11 Refills, Maintenance, 06/04/20 17:34:00 EDT,Solution, [facility]/pharmacy #[id number], 153, cm, 04/23/20 14:32:00 EDT, [...] Refills, Maintenance, 11/28/20 13:19:00 EST, [place], [facility]/pharmacy #[id number], Partial fill upon patient request if the prescription is for a schedule II opioid drug., 153, cm, 11/28/20 12:47:00 EST, Height, 79.6, kg,... Start Date: 11/28/20 Status: Ordered topiramate 25 mg oral tablet 2 tablet = 50 mg, By Mouth, 2 times a day, # 360 tablet, 1 Refills, Maintenance, 08/09/20 9:35:00 EDT, Tablet, [facility]/pharmacy #[id number], 153, cm, 08/05/20 13:58:00 EDT, Height, 89.6, kg, 12/26/19 19:50:00 EST, Dry Weight Start Date: 08/09/20 Status: Ordered zolpidem 5 mg oral tablet 1 tablet = 5 mg, By Mouth, Daily at bedtime, PRN as needed for insomnia, # 30 tablet, 0 Refills, Maintenance, 11/08/20 13:53:00 EST, Tablet, [facility]/pharmacy #[id number], 153, cm, 08/28/20 15:44:00 EDT, [...] deficiency ;egd/colo neg iron infusions Discharge Diagnosis 12/11/20 Vitamin D deficiency Discharge Diagnosis 12/11/20 Chronic pain disorder/fibromya lgia Discharge Diagnosis 12/11/20 DM (diabetes mellitus), type 2 Discharge Diagnosis 12/11/20 Vital Signs Most recent to oldest [Reference Range]: 1 Height 153 cm (12/11/20 4:00 PM) Social History Social History Type Response Smoking Status Never smoker; Type: Cigarettes entered on: 06/28/18 Sex
--- OUTSIDE RECORDS SUMMARY | 2023-08-13 20:27 | XMS_ITS | Continuity of Care Document ---
Author Name Unknown Organization [facility] Jarrett Julian lt Address [address] [place] [address]- Care Team Providers Care Transportation Design Engineer Name Role Phone Not on Staff, PCP Primary Care Physician Unavail able Encounter [facility] [place] Date(s): 03/24/21 - 04/23/21 [facility] Adult [address] [place] [address]- Allergies, Adverse Reactions, Alerts Substance Reaction Severity [...] 01/29/21 15:01:00 EST, Route to Pharmacy Electronically, [facility]/pharmacy #[id number], 153, cm, 01/01/21 [...] Refills, Maintenance, 12/10/20 17:49:00 EST, [facility], 153, cm, 12/10/20 15:22:00 EST, Height, 79.6, [...] capsule, 5 Refills, Maintenance, 08/24/20 9:47:00 EDT, [facility]/pharmacy #[id number], 153, cm, 08/14/20 14:22:00 EDT, Height, 89.6, kg, 12/26/19 19:50:00 EST, Dry Weight Start Date: 08/24/20 Status: Ordered Emgality Prefilled Pen 120 mg/mL subcutaneous solution = 120 mg, Subcutaneous Infusion, Every 28 days, # 1 each, 11 Refills, Maintenance, 07/03/20 14:17:00 EDT, [facility]/pharmacy #[id number], 1st dose broke [...] 07/21/20 23:30:00 EDT, Route to Pharmacy Electronically, [facility]/pharmacy #[id number], 153, cm, 07/09/20 13:32:00 EDT, Height, 89.6, kg,... Start Date: 07/21/20 Status: Ordered ipratropium nasal 42 mcg/inh spray 2 sprays, Nares, Both, 3 times a day, # 15 mL, 11 Refills, Maintenance, 01/09/20 10:37:00 EST, [place], [facility]/pharmacy #0693, 2 sprays Nares, Both 3 times a day, 153, cm, 01/09/20 9:49:00 EST, Height, 89.6, kg, 12/26/19 19:50:00 EST, Dry Weight Start Date: 01/09/20 Status: Ordered KlonoPIN 0.5 mg oral tablet 1 tablet = 0.5 mg, By Mouth, 2 times a day, # 60 tablet, 0 Refills, Maintenance, 02/18/21 9:54:00 EDT, Tablet, [facility]/pharmacy #0693, 153, cm, 01/29/21 15:33:00 EST, Height, 79.6, kg, 12/30/20 13:59:00 EST, Dry Weight Start Date: 02/18/21 Status: Ordered lidocaine 1.8% topical film 1 patch, Topically, Daily, leave on up to 12 hours, # 30 each, 11 Refills, Maintenance, 02/22/20 9:39:00 EDT, Film, [facility]/pharmacy #[id number], 1 patch Topically Daily,Instr:leave on up to 12 hours, 153, cm,02/01/20 9:49:00 EDT, Height, 89.6, kg, 12/26/19 19... Start Date: 02/22/20 Status: Ordered metFORMIN 1000 mg oral tablet 1 tablet = 1,000 mg, By Mouth, 2 times a day, new fdose Soumya Jaquez, # 180 tablet, 1 Refills, Maintenance, 10/06/20 13:46:00 EST, Tablet, [facility]/pharmacy #0693, 153, cm, 08/28/20 15:44:00 EDT, Height, 89.6, kg, 12/26/19 19:50:00 EST, Dry Weight Start Date: 10/06/20 Status: Ordered omeprazole 20 mg oral delayed release tablet 1 tablet = 20 mg, By Mouth, Daily, # 90 tablet, 0 Refills, Maintenance, 09/29/20 16:38:00 EST, EC Tablet, [facility], 153, cm, 08/28/20 15:44:00 EDT, Height, 89.6, kg, 02/04/20 19:50:00 EST, Dry Weight Start Date: 09/29/20 Stop Date: 12/28/20 Status: Ordered ondansetron 4 mg oral tablet 1 tablet = 4 mg, By Mouth, Every 8 hours, PRN as needed for nausea/vomiting, # 15 tablet, 0 Refills, Maintenance, 11/24/20 14:17:00 EST, Tablet, [facility], Partial fill upon patient request if the prescription is for a schedule II opioi... Start Date: 11/24/20 Stop Date: 11/29/20 Status: Ordered Ozempic (1 mg dose) 2 mg/1.5 mL subcutaneous solution = 1 mg, Subcutaneous Injection, Every week, # 3 mL, 11 Refills, Maintenance, 06/04/20 17:34:00 EDT,Solution, [facility]/pharmacy #[id number], 153, cm, 04/23/20 14:32:00 EDT, Height, 89.6, kg, 12/26/19 19:50:00 EST, Dry Weight Start Date: 06/04/20 Status: Ordered Paragard IUD Maintenance, 05/05/19 10:52:19 EDT, Compound Start Date: 05/05/19 Status: Ordered PEG-3350 with Electrolytes (Eqv-NuLYTELY) oral powder for reconstitution See Instructions, as directed, # 1 each, 0 Refills, Maintenance, 12/26/20 14:56:00 EST, [facility], De to substitute for ANY gallon prep, as [...] M79.7HEIGHT- 5' WEIGHT- 175LBS LIFETIME NEED FAX: [phone], 02/03/21 14:22:00 EDT, Supply Start Date: 02/03/21 [...] 1 Refills, Maintenance, 03/03/21 18:31:00 EDT, [facility], 153, cm, 02/28/21 11:14:00 EDT, Height, 79.6, kg, 12/30/20 13:59:00 EST, Dry Weight Start Date: 03/03/21 Status: Ordered topiramate 25 mg oral tablet 2 tablet = 50 mg, By Mouth, 2 times a day, # 360 tablet, 1 Refills, Maintenance, 08/09/20 9:35:00 EDT, Tablet, [facility]/pharmacy #[id number], 153, cm, 08/05/20 [...]
--- OUTSIDE RECORDS SUMMARY | 2023-08-13 20:27 | XMS_ITS | Continuity of Care Document ---
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 Machine Operator Name Role Phone Andrew COREAS, Loreta Diaz Primary Care Physician Encounter [facility] [place] Date(s): 12/01/22 - 01/14/23 [facility] [address] [place] [address]- Attending Physician: Not on Staff, Attending MD Allergies, Adverse Reactions, Alerts Substance Reaction Severity Status doxycycline Hives Active penicillin 1 Hives Active Bactrim hives Active Nuts Anaphylactic reaction to food Active Other Food Allergy 2 HONEY hives Active Lyrica Hives Active gabapentin Hives Active 1per RN, pt reports reaction [...] mL, 0 Refills, Maintenance, 08/31/21 20:13:00 EDT, [facility]/pharmacy #[id number], 153, cm, 08/21/21 11:10:00 EDT, Height, [...] 10/03/21 15:12:00 EST, Route to Pharmacy Electronically, [facility]/pharmacy #[id number], 153, cm, 10/02/21 11:33:00 EST, Height, [...] Refills, Maintenance, 12/10/20 17:49:00 EST, [facility], 153, cm, 12/10/20 15:22:00 EST, Height, 79.6, kg, 11/21/20 21:34:00 EST, Dry Weight Start Date: 12/10/20 Status: Ordered Dulera 200 mcg-5 mcg/inh inhalation aerosol 2 puffs, Inhalation, 2 times a day, # 13 Gm, 3 Refills, Maintenance, 10/03/21 15:21:00 EST, Aerosol, [facility]/pharmacy #[id number], 2 puffs Inhalation 2 times a day, 153, cm, 10/02/21 11:33:00 EST, Height, 80, kg, 09/02/21 13:29:00 EDT, Dry Weight Start Date: 10/03/21 Status: Ordered duloxetine 60 mg oral enteric coated capsule 1 capsule, By Mouth, 2 times a day, # 180 capsule, 1 Refills, Maintenance, 10/03/21 15:20:00 EST, [facility]/pharmacy #0693, 153, cm, 10/02/21 11:33:00 EST, Height, [...] 2 Refills, Maintenance, 10/03/21 15:17:00 EST, Nasal [place], [facility]/pharmacy #0693, Partial fill upon patient request if [...] 09/03/21 13:19:00 EDT, Route to Pharmacy Electronically, [facility]/pharmacy #[id number], 153, cm, 09/02/21 13:58:00 EDT, Height, 80, kg, 1... Start Date: 09/03/21 Status: Ordered ipratropium nasal 42 mcg/inh spray 2 sprays, Nares, Both, 3 times a day, # 15 mL, 11 Refills, Maintenance, 10/03/21 15:19:00 EST, [place], [facility]/pharmacy #0693, 2 sprays Nares, Both 3 times a day, 153, cm, 10/02/21 11:33:00 EST, Height, 80, kg, 09/02/21 13:29:00 EDT, Dry Weight Start Date: 10/03/21 Status: Ordered ketoconazole 2% topical shampoo 1 application, Topically, Once, # 120 mL, 1 Refills, Soft Stop, 05/07/21 8:34:00 EDT, Shampoo, [facility]/pharmacy #0693, 1 application Topically Once, 153, cm, 05/07/21 7:55:00 EDT, Height, 79.6, kg, 12/30/20 13:59:00 EST, Dry Weight Start Date: 05/07/21 Status: Ordered lidocaine 1.8% topical film 1 patch, Topically, Daily, leave on up to 12 hours, # 30 each, 11 Refills, Maintenance, 02/22/20 9:39:00 EDT, Film, [facility]/pharmacy #0693, 1 patch Topically Daily,Instr:leave on up to 12 hours, 153, cm,02/01/20 9:49:00 EDT, Height, 89.6, kg, 12/26/19 19... Start Date: 02/22/20 Status: Ordered Linzess 290 mcg oral capsule 1 capsule = 290 mcg, By Mouth, Daily, TAKE 1 CAPSULE BY MOUTH EVERY DAY, # 90 capsule, 0 Refills, Maintenance, 10/03/21 15:14:00 EST, Capsule, [facility]/pharmacy #[id number], Partial fill upon patient request ifthe [...] EST, Supply Start Date: 10/03/21 Status: Ordered [place] 0.65% nasal spray 2 sprays, Nares, Both, 4 times a day, # 1 each, 0 Refills, Maintenance, 06/23/21 9:54:00 EDT, [facility]/pharmacy #[id number], Partial fill upon patient request if the prescription is for a schedule II opioid drug., 2 sprays Nares, Both 4 times a day, 153, cm, 08... Start Date: 06/23/21 Status: Ordered omeprazole 20 mg oral delayed release tablet 1 tablet = 20 mg, By Mouth, Daily, # 90 tablet, 0 Refills, Maintenance, 10/03/21 15:20:00 EST, EC Tablet, [facility]/pharmacy #[id number], 153, cm, 10/02/21 11:33:00 EST, Height, [...] Unknown, 1 Refills, Maintenance, 10/03/21 15:21:00 EST, [facility]/pharmacy #0693, 90, INJECT 1MG INTO THE SKIN [...] tablet, 0 Refills, Maintenance, 12/25/22 17:47:00 EST, [facility]/pharmacy #0693, Pa... Start Date: 12/25/22 Status: Ordered PEG-3350 with Electrolytes (Eqv-NuLYTELY) oral powder for reconstitution See Instructions, as directed, # 1 each, 0 Refills, Maintenance, 12/26/20 14:56:00 EST, [facility], Ok to substitute for [...] M79.7HEIGHT- 5' WEIGHT- 175LBS LIFETIME NEED FAX: [phone], 02/03/21 14:22:00 EDT, Supply Start Date: 02/03/21 [...] # 360 tablet, 1 Refills, [facility], 153, cm, 08/21/21 11:10:00 EDT, Height, 79.6, [...] Active Wheelchair bound Confirmed Active GBS (Guillain Kensett syndrome) Confirmed Active Hidradenitis suppurativa Confirmed Active [...] Team Personnel Name: Kathy Mendoza RN Position: [facility] RN Member Role: Primary Care Nurse Name: Luis COREASNevin Position: [facility] Associate Professional Member Role: Primary Care Nurse Address: Address: [address] [place] [address] [place] [address]- [place] Name: Bradly Bucio Position: [facility] RN Member Role: Primary Care Nurse Name: Elana Silver RN Position: [facility] RN Member Role: Primary Care Nurse Name: Adriana Lamar RN Position: [facility] RN Member Role: Primary Care Nurse Name: Lory Gillis RN Position: [facility] RN Member Role: Primary Care Nurse Name: Levy Buenrostro RN Position: [facility] RN Member Role: Primary Care Nurse Name: Isabela Quiroz RN Position: [facility] Outreach Member Role: Primary Care Nurse Name: Keyanna Michaels RN Position: [facility] RN Member Role: Primary Care Nurse Name: Loreta Morales NP Position: [facility] Associate Professional Member Role: PCP Address: Address: [address] [place] [address]- [place] Care Team Related Persons Name: JESSICA LAUREN Address: home [address] [place] [address] Name: LAUREN ALDANA Address: home [address] [place] [address]
--- OUTSIDE RECORDS SUMMARY | 2023-08-13 20:27 | XMS_ITS | Continuity of Care Document ---
Author Name Unknown Organization [facility] Address [address] [place] [address] [address] [place] [address]- Care Team Providers Care Refrigerator Glazier Name Role Phone Courtney QUACH, Joe Carrino Primary Care Physician Encounter [facility] [place] Date(s): 11/25/20 - 12/25/20 [facility] [address] [place] [address]- Allergies, Adverse Reactions, Alerts Substance Reaction Severity [...] Refills, Maintenance, 02/05/20 11:51:00 EDT, Solution, [facility]/pharmacy #[id number], 153, cm, 02/01/20 9:49:00 EDT, Height, 89.6, kg, 12/26/19 19:50:00 EST, Dry Weight Start Date: 02/05/20 Status: Ordered carBAMazepine 100 mg oral tablet, extended release 200 mg, 2, tablet, By Mouth, 2 times a day, # 360 tablet, Refills 1, Tot. Refills 1, Maintenance, 07/01/20 16:38:00 EDT, Route to Pharmacy Electronically, [facility]/pharmacy #[id number], 153, cm, 04/23/20 14:32:00 EDT, [...] capsule, 5 Refills, Maintenance, 12/10/20 17:49:00 EST, [id number], 153, cm, 12/10/20 15:22:00 EST, Height, 79.6, [...] capsule, 5 Refills, Maintenance, 08/24/20 9:47:00 EDT, [facility]/pharmacy #0693, 153, cm, 08/14/20 14:22:00 EDT, Height, 89.6, kg, 12/26/19 19:50:00 EST, Dry Weight Start Date: 08/24/20 Status: Ordered Emgality Prefilled Pen 120 mg/mL subcutaneous solution = 120 mg, Subcutaneous Infusion, Every 28 days, # 1 each, 11 Refills, Maintenance, 07/03/20 14:17:00 EDT, [facility]/pharmacy #[id number], 1st dose broke NEEDS ANOTHER, [...] 0 Refills, Soft Stop, 12/13/20 11:33:00 EST, Tablet,[facility]/pharmacy #0693, Partial fill upon patient request if the prescription is for a schedule II opioid drug., 153, cm, 12/11/20 16:00:00 EST, Height, 79... Start Date: 12/13/20 Status: Ordered Freestyle Flash Glucose Meter See Instructions, # 1 each, Maintenance, dx: DM E11.9 Soumya Murphys, 05/26/19 8:13:16 EDT, Compound Start Date: 05/26/19 [...] 23:30:00 EDT, Route to Pharmacy Electronically, [facility]/pharmacy #[id number], 153, cm, 07/09/20 13:32:00 EDT, Height, 89.6, kg,... Start Date: 07/21/20 Status: Ordered ipratropium nasal 42 mcg/inh spray 2 sprays, Nares, Both, 3 times a day, # 15 mL, 11 Refills, Maintenance, 01/09/20 10:37:00 EST, [place], [facility]/pharmacy #[id number], 2 sprays Nares, Both 3 times a day, 153, cm, 01/09/20 9:49:00 EST, Height, 89.6, kg, 12/26/19 19:50:00 EST, Dry Weight Start Date: 01/09/20 Status: Ordered KlonoPIN 0.5 mg oral tablet 1 tablet = 0.5 mg, By Mouth, 2 times a day, # 60 tablet, 0 Refills, Maintenance, 11/28/20 13:19:00 EST, Tablet, [facility]/pharmacy #0693, 153, cm, 11/28/20 12:47:00 EST, Height, 79.6, kg, 11/21/20 21:34:00EST, Dry Weight Start Date: 11/28/20 Status: Ordered lidocaine 1.8% topical film 1 patch, Topically, Daily, leave on up to 12 hours, # 30 each, 11 Refills, Maintenance, 02/22/20 9:39:00 EDT, Film, [facility]/pharmacy #[id number], 1 patch Topically Daily,Instr:leave on up to 12 hours, 153, cm,02/01/20 9:49:00 EDT, Height, 89.6, kg, 12/26/19 19... Start Date: 02/22/20 Status: Ordered Linzess 290 mcg oral capsule 1 capsule, By Mouth, Daily, # 30 capsule, 0 Refills, Maintenance, 12/03/20 10:27:00 EST, [facility]/pharmacy #0693, 153, cm, 11/28/20 12:47:00 EST, [...] Maintenance, 09/29/20 16:38:00 EST, EC Tablet, [facility]/pharmacy #0693, 153, cm, 08/28/20 15:44:00 EDT, Height, 89.6, kg, 12/26/19 19:50:00 EST, Dry Weight Start Date: 09/29/20 Stop Date: 12/28/20 Status: Ordered ondansetron 4 mg oral tablet 1 tablet = 4 mg, By Mouth, Every 8 hours, PRN as needed for nausea/vomiting, # 15 tablet, 0 Refills, Maintenance, 11/24/20 14:17:00 EST, Tablet, [facility], Partial fill upon patient request if the prescription is for a schedule II opioi... Start Date: 11/24/20 Stop Date: 11/29/20 Status: Ordered Ozempic (1 mg dose) 2 mg/1.5 mL subcutaneous solution = 1 mg, Subcutaneous Injection, Every week, # 3 mL, 11 Refills, Maintenance, 06/04/20 17:34:00 EDT,Solution, [facility]/pharmacy #[id number], 153, cm, 04/23/20 14:32:00 EDT, [...] Refills, Maintenance, 11/28/20 13:19:00 EST, Aerosol, [facility]/pharmacy #[id number], Partial fill upon patient request [...]
--- OUTSIDE RECORDS SUMMARY | 2023-08-13 20:28 | XMS_ITS | Continuity of Care Document ---
Author Name Unknown Organization [facility] Jarrett Julian lt Address [address] [place] [address]- Care Team Providers Care Community Services Manager Name Role Phone Courtney QUACH, Joe Carrion Primary Care Physician En[place] [facility] [place] Date(s): 06/25/20 - 07/25/20 [facility] Adult [address] [place] [address]- [facility] Allergies, Adverse Reactions, Alerts Substance Reaction Severity [...] E11.9 DM2 TEST 3 TIMES A DAY, 07/10/19 13:15:07 EDT, Compound Start Date: 05/31/19 Status: [...] 23:30:00 EDT, Route to Pharmacy Electronically, [facility]/pharmacy #[id number], 153, cm, 07/09/20 13:32:00 EDT, Height, 89.6, kg,... Start Date: 07/21/20 Status: Ordered ipratropium nasal 42 mcg/inh spray 2 sprays, Nares, Both, 3 times a day, # 15 mL, 11 Refills, Maintenance, 01/09/20 10:37:00 EST, [place], [facility]/pharmacy #0693, 2 sprays Nares, Both 3 times a day, 153, cm, 01/09/20 9:49:00 EST, Height, 89.6, kg, 12/26/19 19:50:00 EST, Dry Weight Start Date: 01/09/20 Status: Ordered KlonoPIN 0.5 mg oral tablet 1 tablet = 0.5 mg, By Mouth, 2 times a day, # 14 tablet, 0 Refills, Maintenance, 07/18/20 17:06:00 EDT, Tablet, [facility]/pharmacy #[id number], 153, cm, 07/09/20 13:32:00 [...]
--- OUTSIDE RECORDS SUMMARY | 2023-08-13 20:28 | XMS_ITS | Continuity of Care Document ---
Author Name Unknown Organization [facility] Julian lt Address [address] [place] [address]- Care Team Providers Care Dude Wrangler Name Role Phone Courtney QUACH, Joe Carrion Primary Care Physician En[place] [facility] [place] Date(s): 07/18/20 - 08/17/20 [facility] [address] [place] [address]- [facility] Allergies, Adverse Reactions, Alerts Substance Reaction Severity [...] 3 Refills, Maintenance, 02/05/20 11:51:00 EDT, Solution, [facility]/pharmacy #[id number], 153, cm, 02/01/20 9:49:00 EDT, [...] 60 capsule, 6 Refills, Maintenance, 04/23/20 15:15:00EDT, [facility]/pharmacy #0693, 153, cm, [...] mL, 11 Refills, Maintenance, 01/09/20 10:37:00 EST, [place], [facility]/pharmacy #0693, 2 sprays [...] 0 Refills, Maintenance, 07/08/20 16:23:00 EDT, Tablet, [facility]/pharmacy #0693, [...]
--- OUTSIDE RECORDS SUMMARY | 2023-08-13 20:28 | XMS_ITS | Continuity of Care Document ---
Author Name Unknown Organization [facility] ter Address [address] [place] [id number]- Care Team Providers Care Solution Professional Name Role Phone Suha COREAS, Karin Kelsey Primary Care Physicia n Unavailable Encounter [facility] [place] Date(s): 03/03/22 - 05/01/[address] [address]- Attending Physician: Twan Keller MD Admitting Physician: Twan Keller MD Referring Physician: Polly QUACH, Estelle Charles Allergies, Adverse [...] 10/03/21 15:12:00 EST, Route to Pharmacy Electronically, [facility]/pharmacy #[id number], 153, cm, 10/02/21 11:33:00 EST, Height, [...] 0 Refills, Maintenance, 05/07/21 9:18:00 EDT, Tablet, [facility]/pharmacy #0693, Partial fill [...] 13:59:00 EST,... Start Date: 05/14/21 Status: Ordered [facility] VITAMIN D3 25 MCG SOFTGEL TAKE 1 [...] Refills, Maintenance, 12/10/20 17:49:00 EST, [facility], 153, cm, 12/10/20 15:22:00 EST, Height, 79.6, [...] 2 Refills, Maintenance, 10/03/21 15:17:00 EST, Nasal [place], Partial fill upon patient request if the [...] 09/03/21 13:19:00 EDT, Route to Pharmacy Electronically, [facility]/pharmacy #[id number], 153, cm, 09/02/21 13:58:00 EDT, Height, 80, kg, 1... Start Date: 09/03/21 Status: Ordered ipratropium nasal 42 mcg/inh spray 2 sprays, Nares, Both, 3 times a day, # 15 mL, 11 Refills, Maintenance, 10/03/21 15:19:00 EST, [place], [facility]/pharmacy #0693, 2 sprays Nares, Both 3 times a day, 153, cm, 10/02/21 11:33:00 EST, Height, 80, kg, 09/02/21 13:29:00 EDT, Dry Weight Start Date: 10/03/21 Status: Ordered ketoconazole 2% topical shampoo 1 application, Topically, Once, # 120 mL, 1 Refills, Soft Stop, 05/07/21 8:34:00 EDT, Shampoo, [facility]/pharmacy #0693, 1 application Topically Once, 153, cm, 05/07/21 7:55:00 EDT, Height, 79.6, kg, 12/30/20 13:59:00 EST, Dry Weight Start Date: 05/07/21 Status: Ordered KlonoPIN 0.5 mg oral tablet 1 tablet = 0.5 mg, By Mouth, 2 times a day, # 56 tablet, 0 Refills, Maintenance, 01/29/22 17:00:00 EST, Tablet, [facility]/pharmacy #0693, 153, cm, 10/02/21 11:33:00 EST, Height, [...] 0 Refills, Maintenance, 10/03/21 15:14:00 EST, Capsule, [facility]/pharmacy #0693, Partial fill upon patient request ifthe [...] Wheezing/Shortness of Breath, Dx asthma J45.9 Soumya Ajquez, 10/03/21 17:45:00 EST, Supply Start Date: 10/03/21 Status: Ordered [place] 0.65% nasal spray 2 sprays, Nares, Both, 4 times a day, # 1 each, 0 Refills, Maintenance, 06/23/21 9:54:00 EDT, [facility]/pharmacy #0693, Partial fill upon patient request if the prescription is for a schedule II opioid drug., 2 sprays Nares, Both 4 times a day, 153, cm, 08... Start Date: 06/23/21 Status: Ordered omeprazole 20 mg oral delayed release tablet 1 tablet = 20 mg, By Mouth, Daily, # 90 tablet, 0 Refills, Maintenance, 10/03/21 15:20:00 EST, EC Tablet, [facility]/pharmacy #0693, 153, cm, 10/02/21 11:33:00 EST, Height, 80, kg, 09/02/21 13:29:00 EDT, Dry Weight Start Date: 10/03/21 Stop Date: 01/01/22 Status: Ordered ondansetron 4 mg oral tablet 1 tablet = 4 mg, By Mouth, Every 8 hours, PRN as needed for nausea/vomiting, # 15 tablet, 0 Refills, Maintenance, 10/03/21 15:20:00 EST, Tablet, [facility]/pharmacy #0693, Partial fill [...] Unknown, 1 Refills, Maintenance, 10/03/21 15:21:00 EST, [facility]/pharmacy #0693, 90, INJECT 1MG INTO THE SKIN WEEKLY, 153, cm, 10/02/21 11:33:00 EST,Height, 80, kg, 09/02/21 13:29:00 EDT, Dry Weight Start Date: 10/03/21 Status: Ordered Paragard IUD Maintenance, 05/05/19 10:52:19 EDT, Compound Start Date: 05/05/19 Status: Ordered PEG-3350 with Electrolytes (Eqv-NuLYTELY) oral powder for reconstitution See Instructions, as directed, # 1 each, 0 Refills, Maintenance, 12/26/20 14:56:00 EST, [facility], Ok to substitute for ANY [...] Refills 11, Tot. Refills 11, Maintenance, DX: MIKEYGI M79.7 HEIGHT- 5' WEIGHT- 175LBS LIFETIME NEED , 02/03/21 14:22:00 EDT, Supply Start Date: 02/03/21 Status: Ordered RECLINER RECLINER, See Instructions, # 1 each, Refills 0, Tot. Refills 0, Maintenance, DX: JORDANA M79.7HEIGHT- 5' WEIGHT- 175LBS LIFETIME NEED FAX: [phone], 02/03/21 14:22:00 EDT, Supply Start Date: 02/03/21 [...] 11 Refills, Maintenance, 11/28/20 13:19:00 EST, Aerosol, [facility]/pharmacy #0693, Partial fill upon patient request if the prescription is for a schedule II opioid drug., 153, cm, 11/28/20 12:47:00 EST, Height, 79.6, kg,... Start Date: 11/28/20 Status: Ordered topiramate 25 mg oral tablet 2 tablet, By Mouth, 2 times a day, # 360 tablet, 1 Refills, [facility], 153, cm, 08/21/21 11:10:00 EDT, Height, 79.6, kg, 12/30/20 13:59:00 EST, Dry Weight Start Date: 08/31/21 Status: Ordered Transfer Wheelchair Transfer Wheelchair, See Instructions, # 1 each, Refills 0, Tot. Refills 0, Maintenance, Dx Fibromyalgia M79.7 Soumyamarcos Jaquez, 10/03/21 17:35:00 EST, Supply Start Date: [...]
--- OUTSIDE RECORDS SUMMARY | 2023-08-13 20:28 | XMS_ITS | Continuity of Care Document ---
Author Name Unknown Organization [facility] Address [address] [place] [address]- Care Team Providers Care Resource Engineer Name Role Phone Andrew COREAS, Loreta Diaz Primary Care Physician Encounter [facility] Date(s): 12/24/22 - 01/23/23 [facility] [address] [place] [address]- Allergies, Adverse Reactions, Alerts Substance Reaction Severity [...] mL, 0 Refills, Maintenance, 08/31/21 20:13:00 EDT, [facility]/pharmacy #[id number], 153, cm, 08/21/21 11:10:00 EDT, [...] 10/03/21 15:12:00 EST, Route to Pharmacy Electronically, [facility]/pharmacy #[id number], 153, cm, 10/02/21 11:33:00 EST, [...] capsule, 5 Refills, Maintenance, 12/10/20 17:49:00 EST, [id number], 153, cm, 12/10/20 15:22:00 EST, Height, 79.6, kg, 11/21/20 21:34:00 EST, Dry Weight Start Date: 12/10/20 Status: Ordered Dulera 200 mcg-5 mcg/inh inhalation aerosol 2 puffs, Inhalation, 2 times a day, # 13 Gm, 3 Refills, Maintenance, 10/03/21 15:21:00 EST, Aerosol, [facility]/pharmacy #[id number], 2 puffs Inhalation 2 times a day, 153, cm, 10/02/21 11:33:00 EST, Height, 80, kg, 09/02/21 13:29:00 EDT, Dry Weight Start Date: 10/03/21 Status: Ordered duloxetine 60 mg oral enteric coated capsule 1 capsule, By Mouth, 2 times a day, # 180 capsule, 1 Refills, Maintenance, 10/03/21 15:20:00 EST, [facility]/pharmacy #[id number], 153, cm, 10/02/21 11:33:00 EST, Height, 80, kg, 09/02/21 13:29:00 EDT, Dry Weight Start Date: 10/03/21 Status: Ordered Emgality Prefilled Pen 120 mg/mL subcutaneous solution = 120 mg, Subcutaneous Infusion, Every 28 days, # 1 each, 1 Refills, Maintenance, 10/03/21 15:21:00EST, [facility]/pharmacy #[id number], 153, cm, 10/02/21 11:33:00 EST, [...] 2 Refills, Maintenance, 10/03/21 15:17:00 EST, Nasal [place], [facility]/pharmacy #[id number], Partial fill upon patient request [...] 09/03/21 13:19:00 EDT, Route to Pharmacy Electronically, [facility]/pharmacy #[id number], 153, cm, 09/02/21 13:58:00 EDT, Height, 80, kg, 1... Start Date: 09/03/21 Status: Ordered ipratropium nasal 42 mcg/inh spray 2 sprays, Nares, Both, 3 times a day, # 15 mL, 11 Refills, Maintenance, 10/03/21 15:19:00 EST, [place], [facility]/pharmacy #[id number], 2 sprays Nares, Both 3 times a day, 153, cm, 10/02/21 11:33:00 EST, Height, 80, kg, 09/02/21 13:29:00 EDT, Dry Weight Start Date: 10/03/21 Status: Ordered ketoconazole 2% topical shampoo 1 application, Topically, Once, # 120 mL, 1 Refills, Soft Stop, 05/07/21 8:34:00 EDT, Shampoo, [facility]/pharmacy #[id number], 1 application Topically Once, 153, [...] 0 Refills, Maintenance, 10/03/21 15:14:00 EST, Capsule, [facility]/pharmacy #[id number], Partial fill upon patient request [...] EST, Supply Start Date: 10/03/21 Status: Ordered Ellis 0.65% nasal spray 2 sprays, Nares, Both, [...] Unknown, 1 Refills, Maintenance, 10/03/21 15:21:00 EST, [facility]/pharmacy #[id number], 90, INJECT 1MG INTO THE [...] tablet, 0 Refills, Maintenance, 12/25/22 17:47:00 EST, [facility]/pharmacy #0693, Pa... 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 Hidradenitis suppurativa Confirmed Active [...] Team Personnel Name: Kathy Mendoza RN Position: [facility] RN Member Role: Primary Care Nurse Name: Nevin Smith NP Position: [facility] Associate Professional Member Role: Primary Care Nurse Address: Address: [address] [place] [address] [place] [address]- [place] Name: Bradly Bucio Position: [facility] RN Member Role: Primary Care Nurse Name: Elana Silver RN Position: [facility] RN Member Role: Primary Care Nurse Name: Adriana Lamar RN Position: [facility] RN Member Role: Primary Care Nurse Name: Lory Gillis RN Position: [facility] RN Member Role: Primary Care Nurse Name: Levy Buenrostro RN Position: [facility] RN Member Role: Primary Care Nurse Name: Isabela Quiroz RN Position: [facility] Outreach Member Role: Primary Care Nurse Name: Keyanna Michaels RN Position: [facility] RN Member Role: Primary Care Nurse Name: Loreta Morales NP Position: [facility] Associate Professional Member Role: PCP Address: Address: [address] [place] [address]- [place] Care Team Related Persons Name: JESSICA LAUREN Address: home [address] [place] [address] Name: LAUREN ALDANA Address: home [address] [place] [address]
--- OUTSIDE RECORDS SUMMARY | 2023-08-13 20:28 | XMS_ITS | Continuity of Care Document ---
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 Start Date: 05/14/21 Status: Ordered clonazePAM 0.5 [...] EST,... Start Date: 05/14/21 Status: Ordered [facility] VITAMIN D3 25 MCG SOFTGEL TAKE 1 [...] Refills, Maintenance, 12/10/20 17:49:00 EST, [facility], 153, cm, 12/10/20 15:22:00 EST, Height, 79.6, [...] 2 Refills, Maintenance, 10/03/21 15:17:00 EST, Nasal [place], [id number], Partial fill upon patient request if the [...] 13:19:00 EDT, Route to Pharmacy Electronically, [facility]/pharmacy #[id number], 153, cm, 09/02/21 13:58:00 EDT, Height, 80, kg, 1... Start Date: 09/03/21 Status: Ordered ipratropium nasal 42 mcg/inh spray 2 sprays, Nares, Both, 3 times a day, # 15 mL, 11 Refills, Maintenance, 10/03/21 15:19:00 EST, [place], [facility]/pharmacy #0693, 2 sprays Nares, Both 3 times a day, 153, cm, 10/02/21 11:33:00 EST, Height, 80, kg, 09/02/21 13:29:00 EDT, Dry Weight Start Date: 10/03/21 Status: Ordered ketoconazole 2% topical shampoo 1 application, Topically, Once, # 120 mL, 1 Refills, Soft Stop, 05/07/21 8:34:00 EDT, Shampoo, [facility]/pharmacy #0693, 1 application Topically Once, 153, cm, 05/07/21 7:55:00 EDT, Height, 79.6, kg, 12/30/20 13:59:00 EST, Dry Weight Start Date: 05/07/21 Status: Ordered lidocaine 1.8% topical film 1 patch, Topically, Daily, leave on up to 12 hours, # 30 each, 11 Refills, Maintenance, 02/22/20 9:39:00 EDT, Film, [facility]/pharmacy #[id number], 1 patch Topically Daily,Instr:leave on up to 12 hours, 153, cm,02/01/20 9:49:00 EDT, Height, 89.6, kg, 12/26/19 19... Start Date: 02/22/20 Status: Ordered Linzess 290 mcg oral capsule 1 capsule = 290 mcg, By Mouth, Daily, TAKE 1 CAPSULE BY MOUTH EVERY DAY, # 90 capsule, 0 Refills, Maintenance, 10/03/21 15:14:00 EST, Capsule, [facility]/pharmacy #0693, Partial fill upon patient request ifthe prescription is for a schedule II opioid drug.,... Start Date: 10/03/21 Stop Date: 01/01/22 Status: Ordered metFORMIN 500 mg oral tablet 1 tablet = 500 mg, By Mouth, 2 times a day, # 180 tablet, 3 Refills, Maintenance, 06/14/23 7:54:00 EDT, Tablet, [facility]/pharmacy #0693, Partial fill upon patient request if [...] EST, Supply Start Date: 10/03/21 Status: Ordered Gosper 0.65% nasal spray 2 sprays, Nares, Both, [...] Maintenance, 10/03/21 15:20:00 EST, EC Tablet, [facility]/pharmacy #0693, 153, cm, 10/02/21 11:33:00 EST, Height, 80, kg, 09/02/21 13:29:00 EDT, Dry Weight Start Date: 10/03/21 Stop Date: 01/01/22 Status: Ordered ondansetron 4 mg oral tablet 1 tablet = 4 mg, By Mouth, Every 8 hours, PRN as needed for nausea/vomiting, # 15 tablet, 0 Refills, Maintenance, 10/03/21 15:20:00 EST, Tablet, [facility]/pharmacy #0693, Partial fill upon patient request if [...] mL, 3 Refills, Maintenance, 06/14/23 7:54:00 EDT, [facility]/pharmacy #0693, Partial fill upon patient request if [...] tablet, 0 Refills, Maintenance, 12/25/22 17:47:00 EST, [facility]/pharmacy #0693, Pa... Start Date: 12/25/22 Status: Ordered PEG-3350 with Electrolytes (Eqv-NuLYTELY) oral powder for reconstitution See Instructions, as directed, # 1 each, 0 Refills, Maintenance, 12/26/20 14:56:00 EST, [facility], Ct to substitute for ANY gallon prep, as [...] LARGE PT USES 4 PER DAY DX: BAILEEKATIE M79.7 HEIGHT- 5' WEIGHT- 175LBS [...] M79.7HEIGHT- 5' WEIGHT- 175LBS LIFETIME NEED FAX: [phone], 02/03/21 14:22:00 EDT, Supply Start Date: 02/03/21 [...] 11 Refills, Maintenance, 11/28/20 13:19:00 EST, Aerosol, [facility]/pharmacy #0693, Partial fill upon patient request if the prescription is for a schedule II opioid drug., 153, cm, 11/28/20 12:47:00 EST, Height, 79.6, kg,... 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 Hidradenitis suppurativa Confirmed Active [...] DM (diabetes mellitus), type 2 Discharge Diagnosis 06/14/23 Vital Signs Most recent to oldest [Reference Range]: 1 Height 153 cm (06/14/23 7:36 AM) Social History Social History Type Response Smoking Status Never (less than 100 in lifetime);Never entered on: 03/24/21 Sex Note * Ashleigh Sykes: PERFORM, SIGN, VERIFY Event Display: Patient Education/Instruction Authored Date: [id number] [facility] *[facility] [place] [facility] Clinical Summary Name VINEET SANTIAGO Age 43 Years 1980 PCP Andrew COREAS, Loreta Diaz PCP Visit Date 06/14/2023 07:18:00 Additional Instructions: Scheduled Appointments?? Future Appointments ?No Future Appointments Scheduled Follow-Up Instructions ?? Diagnosis Type 2 diabetes mellitus without complications Medications: Please continue your medications until treatment is completed or stopped by your provider. Discuss any questions related to medications with your provider. New Medications [id number], [address] [place] [id number], [phone] Metformin (metFORMIN 500 mg oral tablet) 1 tab(s) Oral twice a day for 90 Days. Refills: 3. Next Dose: Medications to Continue Taking That Have Changed [id number], [address] [place] [id number], [phone] - semaglutide (Ozempic (1 mg dose) 4 mg/3 mL subcutaneous solution) 1 Milligram Subcutaneous Infusion every 7 days for 4 week(s). Refills: 3. Next Dose: Medications to Continue with No Changes These medications were not printed or sent to your pharmacy Acetaminophen/Butalbital/Caffeine (acetaminophen/butalbital/caffeine 300 mg-50 mg-40 mg oral capsule) 1 capsule Oral every 6 hours for 7 Days. not to exceed 6 capsules/day. Refills: 1. Next Dose: Albuterol (albuterol 0.083% inhalation solution) TAKE 1 VIAL VIA NEBULZIER EVERY 6 HOURS. Refills: 0. Next Dose: Carbamazepine (carBAMazepine 100 mg oral tablet, extended release) 2 tab(s) Oral twice a day for 90Days. Refills: 1. Next Dose: Cholecalciferol (Vitamin D3 1000 intl units oral capsule) 1 capsule Oral Daily. Refills: 3. Next Dose: Clonazepam (clonazePAM 0.5 mg oral tablet) 1 tab(s) Oral 3 times a day. Next Dose: Docusate (docusate sodium 100 mg [...] Next Dose: Durable Medical Equipment (Bedpads) DX: [place]OR[place]NA M79.7 HEIGHT- 5' WEIGHT- 175LBS [...] Medical Equipment (PNEUMATIC PUMP AND SLEEVE) DX: [facility] M79.7 HEIGHT- 5' WEIGHT- 175LBS LIFETIME NEED . Refills: 0. Next Dose: Durable Medical Equipment (RECLINER) DX: [facility] M79.7 HEIGHT- 5' WEIGHT- 175LBS LIFETIME NEED FAX: [phone]. Refills: 0. Next Dose: Durable Medical Equipment [...] LIFETIME NEED . Refills: 11. Next Dose: nirmatrelvir-ritonavir (Paxlovid 150 mg-100 mg oral tablet) 300 mg nirmatrelvir (two 150 mg tablets) with 100 mg ritonavir (1 tablet). All 3 tablets taken together twice daily for 5 days, with or without food. Refills: 0. Next Dose: Omeprazole (omeprazole 20 mg oral delayed release tablet) 1 tab(s) Oral Daily for 90 Days. Refills:0. Next Dose: Ondansetron (ondansetron 4 mg oral tablet) 1 tab(s) Oral every 8 hours. Next Dose: Ondansetron (ondansetron 4 mg oral tablet) 1 tab(s) Oral every 8 hours as needed as needed for nausea/vomiting for 5 Days. Refills: 0. Next Dose: Oxycodone 5 Milligram Oral every 6 hours. prescribed by surgeon. Next Dose: PEG Electrolyte Solution (PEG-3350 with Electrolytes (Eqv-NuLYTELY) oral powder for reconstitution)as directed. Refills: 0. Next Dose: Prazosin (prazosin 2 mg oral capsule) 1 capsule Oral 3 times a day. Next Dose: Quetiapine (SEROquel 100 mg oral tablet) 1 tab(s) Oral Daily at Bedtime. Next Dose: Sertraline (sertraline 100 mg oral tablet) 1 tab(s) Oral Daily. Next Dose: Sodium Chloride Nasal (Gosper 0.65% nasal spray) 2 spray(s) Nares, Both 4 times a day. Refills: 0. Next Dose: Tiotropium (Spiriva Respimat 1.25 mcg/inh inhalation aerosol) 2 puff(s) Inhalation Daily. Refills: 11. Next Dose: Topiramate (topiramate 25 mg oral tablet) 2 tab(s) Oral twice a day. Refills: 1. Next Dose: Allergy Info:?? Lyrica; Other Food Allergy; Nuts; Bactrim; gabapentin; penicillin; doxycycline Medications Given This Visit Future Orders ?Hemoglobin A1C (Monitoring)? Order Date:06/14/23?- Complete by?06/14/23 ?Microalbumin Urine? Order Date:06/14/23?- Complete by?06/14/23 Vital Signs Height 153 cm Weight BMI Blood Pressure / Temperature Pulse Rate Respiratory Rate 02 Sat Mode of Delivery / You can now view a summary of your hospital visit from the comfort of your home through a free online portal called blabfeed. blabfeed is a website that allows you to securely view your medical information including discharge summary, medications and follow-up visits. ??You can alsosend a secure electronic message to your doctor???s office to request appointments, renew medications or just ask a question. You can enroll at [email or web address] or register during your next office visit. [...] primary care provider, you may find a [facility] provider by calling [facility] [employer] [facility] at [phone]. For information about the plan of care [...] Team Personnel Name: Kathy Mendoza RN Position: [facility] Nurse Member Role: Primary Care Nurse Name: Luis COREAS, Nevin Baig Position: [facility] Associate Professional Member Role: Primary Care Nurse Address: Address: [address] [place] [address] [place] [address]- [place] Name: Bradly Bucio Position: [facility] RN Member Role: Primary Care Nurse Name: Elana Silver RN Position: [facility] Office Staff Member Role: Primary Care Nurse Name: Adriana Lamar RN Position: [facility] RN Member Role: Primary Care Nurse Name: Lory Gillis RN Position: [facility] RN Member Role: Primary Care Nurse Name: Levy Buenrostro RN Position: [facility] RN Member Role: Primary Care Nurse Name: Isabela Quiroz RN Position: [facility] Outreach Member Role: Primary Care Nurse Name: Keyanna Michaels RN Position: [facility] RN Member Role: Primary Care Nurse Name: Loreta Morales NP Position: [facility] Associate Professional Member Role: PCP Address: Address: [address] [place] [address]- Care Team Related Persons Name: JESSICA LAUREN Address: home [address] [place] [address] Name: LAUREN ALDANA Address: [address] [place] [address]
--- OUTSIDE RECORDS SUMMARY | 2023-08-13 20:28 | XMS_ITS | Continuity of Care Document ---
Author Name Unknown Organization [facility] ter Address [address] [place] [address]- Care Team Providers Care Cement Handler Name Role Phone Joe Valdez MD Primary Care Physician [phone] [place] [facility] Date(s): 01/06/21 - 03/27/[address] [address] Attending Physician: Joe Valdez MD Admitting Physician: [...] [facility]/pharmacy #[id number], 153, cm, 01/01/21 8:33:00 [...] Refills, Maintenance, 12/10/20 17:49:00 EST, [facility], 153, cm, 12/10/20 15:22:00 EST, Height, 79.6, [...] Refills, Maintenance, 08/24/20 9:47:00 EDT, [facility]/pharmacy #[id number], 153, cm, 08/14/20 14:22:00 EDT, Height, 89.6, kg, 12/26/19 19:50:00 EST, Dry Weight Start Date: 08/24/20 Status: Ordered Emgality Prefilled Pen 120 mg/mL subcutaneous solution = 120 mg, Subcutaneous Infusion, Every 28 days, # 1 each, 11 Refills, Maintenance, 07/03/20 14:17:00 EDT, [facility]/pharmacy #[id number], 1st dose broke NEEDS [...] [facility]/pharm[facility][id number], 153, cm, 07/09/20 13:32:00 EDT, Height, 89.6, kg,... Start Date: 07/21/20 Status: Ordered ipratropium nasal 42 mcg/inh spray 2 sprays, Nares, Both, 3 times a day, # 15 mL, 11 Refills, Maintenance, 01/09/20 10:37:00 EST, [place], [facility]/pharmacy #[id number], 2 sprays Nares, Both 3 times a day, 153, cm, 01/09/20 9:49:00 EST, Height, 89.6, kg, 12/26/19 19:50:00 EST, Dry Weight Start Date: 01/09/20 Status: Ordered KlonoPIN 0.5 mg oral tablet 1 tablet = 0.5 mg, By Mouth, 2 times a day, # 60 tablet, 0 Refills, Maintenance, 02/18/21 9:54:00 EDT, Tablet, [facility]/pharmacy #[id number], 153, cm, 01/29/21 15:33:00 EST, [...] Maintenance, 10/06/20 13:46:00 EST, Tablet, [facility]/pharmacy #[id number], 153, cm, 08/28/20 15:44:00 EDT, Height, 89.6, kg, 12/26/19 19:50:00 EST, Dry Weight Start Date: 10/06/20 Status: Ordered MiraLax oral powder for reconstitution = 17 Gm, By Mouth, Daily, for 14 days, dissolve in water before taking, # 238 Gm, 0 Refills, Acute 04/10/21 16:14:00 EDT, 03/27/21 16:14:00 EDT, REC Powder, [facility]/pharmacy #[id number], Partial fill upon patient request if the prescription is for a schedule II... Start Date: 03/27/21 Stop Date: 04/10/21 Status: Ordered omeprazole 20 mg oral delayed release tablet 1 tablet = 20 mg, By Mouth, Daily, # 90 tablet, 0 Refills, Maintenance, 09/29/20 16:38:00 EST, EC Tablet, [facility]/pharmacy #[id number], 153, cm, 08/28/20 15:44:00 EDT, Height, 89.6, kg, 12/26/19 19:50:00 EST, Dry Weight Start Date: 09/29/20 Stop Date: 12/28/20 Status: Ordered ondansetron 4 mg oral tablet 1 tablet = 4 mg, By Mouth, Every 8 hours, PRN as needed for nausea/vomiting, # 15 tablet, 0 Refills, Maintenance, 11/24/20 14:17:00 EST, Tablet, [facility], Partial fill upon patient request if the prescription is for a schedule II opioi... Start Date: 11/24/20 Stop Date: 11/29/20 Status: Ordered Ozempic (1 mg dose) 2 mg/1.5 mL subcutaneous solution = 1 mg, Subcutaneous Injection, Every week, # 3 mL, 11 Refills, Maintenance, 06/04/20 17:34:00 EDT,Solution, [facility]/pharmacy #[id number], 153, cm, 04/23/20 14:32:00 EDT, Height, 89.6, kg, 12/26/19 19:50:00 EST, Dry Weight Start Date: 06/04/20 Status: Ordered Paragard IUD Maintenance, 05/05/19 10:52:19 EDT, Compound Start Date: 05/05/19 Status: Ordered PEG-3350 with Electrolytes (Eqv-NuLYTELY) oral powder for reconstitution See Instructions, as directed, # 1 each, 0 Refills, Maintenance, 12/26/20 14:56:00 EST, [facility], Ok to substitute for ANY gallon prep, as directed, 153, cm, 01/20/21 16:00:00 EST, Height, 79.6, kg, 11/21/20 21:34:00 EST, Dry Weight Start Date: 12/26/20 Status: Ordered plecanatide 3 mg oral tablet 1 tablet = 3 mg, By Mouth, Daily, # 30 tablet, 0 Refills, Maintenance, 02/14/21 11:40:00 EDT, [facility] [...] 03/31/21 16:14:00 EDT, 03/27/21 16:14:00 EDT, Tablet, [facility]/pharmacy #[id number], Partial fill upon patient request if the prescription is for a schedule II opioid drug., 153, cm, ... Start Date: 03/27/21 Stop Date: 03/31/21 Status: [...] M79.7HEIGHT- 5' WEIGHT- 175LBS LIFETIME NEED FAX: [phone], 02/03/21 14:22:00 EDT, Supply Start Date: 02/03/21 [...] 03/27/21 16:14:00 EDT, Route to Pharmacy Electronically, [facility]/pharmacy #[id number] Tablet, Partial fill upon patient request [...] 1 Refills, Maintenance, 03/03/21 18:31:00 EDT, [facility], 153, cm, 02/28/21 11:14:00 EDT, Height, 79.6, [...]
--- OUTSIDE RECORDS SUMMARY | 2023-08-13 20:28 | XMS_ITS | Continuity of Care Document ---
Author Name Unknown Organization [facility] Maximo Farias Julian lt Address [address] [place] [address]- Care Team Providers Care Cotton Washer Name Role Phone Joe Valdez MD Primary Care Physician Encounter [facility] Date(s): 11/28/20 - 12/05/20 [facility] [address] [place] [address]- Encounter Diagnosis Hx of cholecystectomy(Discharge Diagnosis) - 11/27/20 Bipolar disease, chronic(Discharge Diagnosis) - 11/27/20 Major depression(Discharge Diagnosis) - 11/27/20 PTSD (post-traumatic stress disorder); pyschiatry(Discharge Diagnosis) - 11/27/20 DM (diabetes mellitus), type 2(Discharge Diagnosis) - 11/27/20 Asthma, moderate persistent(Discharge Diagnosis) - 11/27/20 Constipation(Discharge Diagnosis) - 11/27/20 Fibromyalgia, primary holyk pain mnt/ failed lyrica/lamotrigine/naltrexone/gabapentin(Discharge Diagnosis) - 11/27/20 Hepatic steatosis(Discharge Diagnosis) - 11/27/20 Migraine(Discharge Diagnosis) - 11/27/20 Vitamin D deficiency(Discharge Diagnosis) - 11/27/20 Attending Physician: Joe Valdez MD Allergies, Adverse [...] 0 Refills, Maintenance, 07/08/20 16:24:00 EDT, Capsule, [facility]/pharmacy #[id number], 1 capsule By Mouth Every 6 [...] 3 Refills, Maintenance, 02/05/20 11:51:00 EDT, Solution, [facility]/pharmacy #[id number], 153, cm, 02/01/20 9:49:00 EDT, Height, 89.6, kg, 12/26/19 19:50:00 EST, Dry Weight Start Date: 02/05/20 Status: Ordered carBAMazepine 100 mg oral tablet, extended release 200 mg, 2, tablet, By Mouth, 2 times a day, # 360 tablet, Refills 1, Tot. Refills 1, Maintenance, 07/01/20 16:38:00 EDT, Route to Pharmacy Electronically, [facility]/pharmacy #[id number], 153, cm, 04/23/20 14:32:00 EDT, [...] 5 Refills, Maintenance, 11/24/20 8:47:00 EST, Tablet, [facility], 153, cm, 11/23/20 20:48:00 [...] capsule, 5 Refills, Maintenance, 08/24/20 9:47:00 EDT, [facility]/pharmacy #[id number], 153, cm, 08/14/20 14:22:00 EDT, Height, 89.6, kg, 12/26/19 19:50:00 EST, Dry Weight Start Date: 08/24/20 Status: Ordered Emgality Prefilled Pen 120 mg/mL subcutaneous solution = 120 mg, Subcutaneous Infusion, Every 28 days, # 1 each, 11 Refills, Maintenance, 07/03/20 14:17:00 EDT, [facility]/pharmacy #[id number], 1st dose broke NEEDS ANOTHER, [...] 07/21/20 23:30:00 EDT, Route to Pharmacy Electronically, [facility]/pharmacy #[id number], 153, cm, 07/09/20 13:32:00 EDT, Height, 89.6, kg,... Start Date: 07/21/20 Status: Ordered ipratropium nasal 42 mcg/inh spray 2 sprays, Nares, Both, 3 times a day, # 15 mL, 11 Refills, Maintenance, 01/09/20 10:37:00 EST, [place], [facility]/pharmacy #0693, 2 sprays Nares, Both 3 times a day, 153, cm, 01/09/20 9:49:00 EST, Height, 89.6, kg, 12/26/19 19:50:00 EST, Dry Weight Start Date: 01/09/20 Status: Ordered KlonoPIN 0.5 mg oral tablet 1 tablet = 0.5 mg, By Mouth, 2 times a day, # 60 tablet, 0 Refills, Maintenance, 11/28/20 13:19:00 EST, Tablet, [facility]/pharmacy #[id number], 153, cm, 11/28/20 12:47:00 EST, Height, 79.6, kg, 11/21/20 21:34:00EST, Dry Weight Start Date: 11/28/20 Status: Ordered lidocaine 1.8% topical film 1 patch, Topically, Daily, leave on up to 12 hours, # 30 each, 11 Refills, Maintenance, 02/22/20 9:39:00 EDT, Film, [facility]/pharmacy #[id number], 1 patch Topically Daily,Instr:leave on [...] 1 Refills, Maintenance, 10/06/20 13:46:00 EST, Tablet, [facility]/pharmacy #[id number], 153, cm, 08/28/20 15:44:00 EDT, Height, 89.6, kg, 12/26/19 19:50:00 EST, Dry Weight Start Date: 10/06/20 Status: Ordered omeprazole 20 mg oral delayed release tablet 1 tablet = 20 mg, By Mouth, Daily, # 90 tablet, 0 Refills, Maintenance, 09/29/20 16:38:00 EST, EC Tablet, [facility]/pharmacy #[id number], 153, cm, 08/28/20 15:44:00 EDT, Height, 89.6, kg, 12/26/19 19:50:00 EST, Dry Weight Start Date: 09/29/20 Stop Date: 12/28/20 Status: Ordered ondansetron 4 mg oral tablet 1 tablet = 4 mg, By Mouth, Every 8 hours, PRN as needed for nausea/vomiting, # 15 tablet, 0 Refills, Maintenance, 11/24/20 14:17:00 EST, Tablet, [facility], Partial fill upon patient request if the prescription is for a schedule II opioi... Start Date: 11/24/20 Stop Date: 11/29/20 Status: Ordered Ozempic (1 mg dose) 2 mg/1.5 mL subcutaneous solution = 1 mg, Subcutaneous Injection, Every week, # 3 mL, 11 Refills, Maintenance, 06/04/20 17:34:00 EDT,Solution, [facility]/pharmacy #[id number], 153, cm, 04/23/20 14:32:00 EDT, [...] 11 Refills, Maintenance, 11/28/20 13:19:00 EST, Aerosol, [facility]/pharmacy #[id number], Partial fill upon patient request [...] Effective Dates Health Status Clinical Service Informant Hx of cholecystectomy Discharge Diagnosis 11/27/20 Bipolar disease, chronic Discharge Diagnosis 11/27/20 Major depression Discharge Diagnosis 11/27/20 PTSD (post-traumatic stress disorder); pyschiatry Discharge Diagnosis 11/27/20 DM (diabetes mellitus), type 2 Discharge Diagnosis 11/27/20 Asthma, moderate persistent Discharge Diagnosis 11/27/20 Constipation Discharge Diagnosis 11/27/20 Fibromyalgia, primary holyk pain mnt/ failed lyrica/lamotrigine/na ltrexone/gabapentin Discharge Diagnosis 11/27/20 Hepatic steatosis Discharge Diagnosis 11/27/20 Migraine Discharge Diagnosis 11/27/20 Vitamin D deficiency Discharge Diagnosis 11/27/20 Procedures Procedure Date Related Diagnosis Body Site Status CT of abdomen and pelvis 1 11/21/20 Completed EKG nsr 2 11/21/20 Completed 1Result type: CT Abd/Pelvis W/ IV + Oral Contrast Result date: November 21, 2020 14:54 EST Result status: Auth (Verified) Result title: CT Abd/Pelvis W/ IV + Oral Contrast Performed by: Dao QUACH, Matt Herrera on November 21, 2020 15:47 EST Verified by: Theodore Deras MD on November 21, 2020 15:52 EST Encounter info: [id number], [facility], Disch IP, 11/21/2020 - 11/24/2020 * Final Report * Reason For Exam Pain RESULT: CT Abd/Pelvis W/ IV + Oral Contrast CT Abd/Pelvis W/ IV + Oral Contrast HISTORY: Right-sided abdominal pain. TECHNIQUE: Spiral CT through the abdomen and pelvis with IV contrast formatted in 3 planes. 95 cc Isovue-300 IV contrast. The study was performed with oral contrast. Weight-based protocol using automatic tube modulation was used to optimize exposure parameters. CTDIvol Body: 15.40 mGy, DLP Body: 860 mGy*cm. COMPARISON: CT 10/13/2017, 12/16/2011 and 08/22/2009. Ultrasound 01/28/2012. Ultrasound from same day. FINDINGS: Manager Of Regulatory Affairs View Findings, Lines and Tubes: None. Visualized Chest: Bibasilar subsegmental atelectasis. No pleural effusion. Heart is normal in size.No pericardial effusion. Diaphragm: Normal. Liver: Focal small geographic hypoattenuation region within segment IVb, along falciform ligament, likely focal fatty infiltration. Gallbladder: Diffuse gallbladder wall thickening with normal mucosal enhancement, mild pericholecystic fat stranding and trace pericholecystic fluid. No evidence of radiodense stones. Bile ducts: No biliary ductal dilation. Spleen: Normal. Pancreas: Normal. Adrenal Glands: Normal. Kidneys and Ureters: 0.2 cm nonobstructing stone in the upper pole of the right kidney. Subcentimeter cortical renal lesion within the interpolar region of the right kidney, too small to characterize, likely benign. No hydronephrosis. No suspicious masses. Bladder: Normal. Stomach, Small bowel and Large Bowel: Sleeve gastrectomy. Stomach is underdistended. Duodenum is normal in configuration. Small bowel loops appear normal. Stomach, duodenum and small bowel loops are well opacified by contrast without evidence of obstruction. Colon appears normal. Well-formed stool t hroughout the colon. No evidence of obstruction. Appendix: Normal. Peritoneum, omentum and mesentery: Trace fluid in the lower pelvis. No pneumoperitoneum. No omentalor mesenteric lesions. Lymph nodes: No enlarged lymph nodes. Blood Vessels: Normal. No aneurysm. No evidence of venous thrombosis. Abdominal and pelvic wall: Very small fat-containing umbilical hernia. Reproductive organs: Numerous bilateral simple appearing adnexal cysts, largest measuring up to 3.6cm in the left. Bones: No acute abnormality. IMPRESSION: Likely acute cholecystitis, HIDA could be performed for diagnostic confirmation if necessary. 2ECG 12-Lead Please click on pdf link to open report [id number] Ventricular Rate: 95 BPM Atrial Rate: 95 BPM P-R Interval: 154 ms QRS Duration: 92 ms Q-T Interval: 378 ms QTC Calculation(Bazett): 475 ms P Turin: 38 degrees R Turin: 37 degrees T Turin: 23 degrees Normal sinus rhythm Normal ECG When compared with ECG of 18-MAR-2019 01:51, No significant change was found Confirmed by TAHIR PRASAD MD ([id number]) on 11/22/2020 2:14:14 PM [place]: TAHIR PRASAD MD Vital Signs Most recent to oldest [Reference Range]: 1 Height 153 cm (11/28/20 12:47 PM) Social History Social History Type Response Smoking Status Never smoker; Type: Cigarettes entered on: 06/28/18 Sex
--- OUTSIDE RECORDS SUMMARY | 2023-08-13 20:28 | XMS_ITS | Continuity of Care Document ---
Author Name Unknown Organization [facility] Jarrett Julian lt Address [address] [place] [address]- Care Team Providers Care Etcher Aircraft Name Role Phone Courtney QUACH, Joe Carrion Primary Care Physician Encounter [facility] Date(s): 07/08/20 - 08/07/20 [facility] Adult [address] [place] [address]- [facility] Allergies, Adverse Reactions, Alerts Substance Reaction [...] 16:38:00 EDT, Route to Pharmacy Electronically, [facility]/pharmacy #[id number], 153, cm, 04/23/20 14:32:00 [...] 5 Refills, Maintenance, 05/01/20 16:21:00 EDT, Tablet, [facility]/pharmacy #[id number], 153, cm, 04/23/20 14:32:00 [...] 60 capsule, 6 Refills, Maintenance, 04/23/20 15:15:00EDT, [facility]/pharmacy #[id number], 153, cm, 04/23/20 14:32:00 EDT, Height, 89.6, kg, 12/26/19 19:50:00 EST, Dry Weight Start Date: 04/23/20 Status: Ordered Emgality Prefilled Pen 120 mg/mL subcutaneous solution = 120 mg, Subcutaneous Infusion, Every 28 days, # 1 each, 11 Refills, Maintenance, 07/03/20 14:17:00 EDT, [facility]/pharmacy #[id number], 1st dose broke NEEDS [...] EDT, Route to Pharmacy Electronically, [facility]/pharmacy #[id number], 153, cm, 07/09/20 13:32:00 EDT, Height, 89.6, kg,... Start Date: 07/21/20 Status: Ordered ipratropium nasal 42 mcg/inh spray 2 sprays, Nares, Both, 3 times a day, # 15 mL, 11 Refills, Maintenance, 01/09/20 10:37:00 EST, [place], [facility]/pharmacy #[id number], 2 sprays Nares, Both 3 times a day, 153, cm, 01/09/20 9:49:00 EST, Height, 89.6, kg, 12/26/19 19:50:00 EST, Dry Weight Start Date: 01/09/20 Status: Ordered KlonoPIN 0.5 mg oral tablet 1 tablet = 0.5 mg, By Mouth, 2 times a day, # 14 tablet, 0 Refills, Maintenance, 07/18/20 17:06:00 EDT, Tablet, [facility]/pharmacy #[id number], 153, cm, 07/09/20 13:32:00 EDT, Height, 89.6, kg, 12/26/19 19:50:00EST, Dry Weight Start Date: 07/18/20 Stop Date: 07/25/20 Status: Ordered lidocaine 1.8% topical film 1 patch, Topically, Daily, leave on up to 12 hours, # 30 each, 11 Refills, Maintenance, 02/22/20 9:39:00 EDT, Film, [facility]/pharmacy #[id number], 1 patch Topically Daily,Instr:leave [...] 0, Tot. Refills 0, Maintenance, DX: Fibromyalgia Souyma Jaquez, 09/15/19 8:00:52 EDT, Compound Start Date: 09/15/19 Status: Ordered topiramate 25 mg oral tablet 2 tablet = 50 mg, By Mouth, 2 times a day, # 360 tablet, 1 Refills, Maintenance, 06/04/20 7:22:00 EDT, Tablet, [facility]/pharmacy #[id number], 153, cm, 04/23/20 14:32:00 EDT, Height, 89.6, kg, 12/26/19 19:50:00 EST, Dry Weight Start Date: 06/04/20 Status: Ordered Zithromax Z-Freeman 250 mg oral [...] 0 Refills, Maintenance, 06/14/20 11:30:00 EDT, Tablet, [facility]/pharmacy #[id number], 153, cm, 04/23/20 14:32:00 EDT, Height, [...]
--- OUTSIDE RECORDS SUMMARY | 2023-08-13 20:28 | XMS_ITS | Continuity of Care Document ---
Author Name Unknown Organization [facility] Address [address] [place] [address]- Care Team Providers Care Recordak Operator Name Role Phone Courtney QUACH, Joe Carrion Primary Care Physician [phone] Encounter [facility] Date(s): 03/01/21 - 03/31/21 [facility]/[address] [address]- Attending Physician: Admtr, [id number] Admitting Physician: Admtr, [...] Route to Pharmacy Electronically, [facility]/pharmacy #[id number], 153, cm, 01/01/21 8:33:00 EST, Height, [...] Refills, Maintenance, 12/10/20 17:49:00 EST, [facility], 153, cm, 12/10/20 15:22:00 EST, Height, 79.6, [...] Maintenance, 08/24/20 9:47:00 EDT, [facility]/pharmacy #[id number], 153, cm, 08/14/20 14:22:00 EDT, Height, 89.6, kg, 12/26/19 19:50:00 EST, Dry Weight Start Date: 08/24/20 Status: Ordered Emgality Prefilled Pen 120 mg/mL subcutaneous solution = 120 mg, Subcutaneous Infusion, Every 28 days, # 1 each, 11 Refills, Maintenance, 07/03/20 14:17:00 EDT, [facility]/pharmacy #[id number], 1st dose broke NEEDS ANOTHER, 153, cm, 04/23/20 14:32:00 EDT, Height, 89.6, kg, 12/26/19 19:50:00 EST, Dry Weight Start Date: 07/03/20 Status: Ordered EpiPen 2-Rfeeman 0.3 mg injectable kit See Instructions, Intramuscular [...] Route to Pharmacy Electronically, [facility]/pharmacy #[id number], 153, cm, 07/09/20 13:32:00 EDT, Height, 89.6, kg,... Start Date: 07/21/20 Status: Ordered ipratropium nasal 42 mcg/inh spray 2 sprays, Nares, Both, 3 times a day, # 15 mL, 11 Refills, Maintenance, 01/09/20 10:37:00 EST, [place], [facility]/pharmacy #[id number], 2 sprays Nares, Both 3 times a day, 153, cm, 01/09/20 9:49:00 EST, Height, 89.6, kg, 12/26/19 19:50:00 EST, Dry Weight Start Date: 01/09/20 Status: Ordered KlonoPIN 0.5 mg oral tablet 1 tablet = 0.5 mg, By Mouth, 2 times a day, # 60 tablet, 0 Refills, Maintenance, 02/18/21 9:54:00 EDT, Tablet, [facility]/pharmacy #[id number], 153, cm, 01/29/21 15:33:00 EST, Height, 79.6, kg, 12/30/20 13:59:00 EST, Dry Weight Start Date: 02/18/21 Status: Ordered lidocaine 1.8% topical film 1 patch, Topically, Daily, leave on up to 12 hours, # 30 each, 11 Refills, Maintenance, 02/22/20 9:39:00 EDT, Film, [facility]/pharmacy #[id number], 1 patch Topically Daily,Instr:leave on up to 12 hours, 153, cm,02/01/20 9:49:00 EDT, Height, 89.6, kg, 12/26/19 19... Start Date: 02/22/20 Status: Ordered metFORMIN 1000 mg oral tablet 1 tablet = 1,000 mg, By Mouth, 2 times a day, new fdose Soumya Jaquez, # 180 tablet, 1 Refills, Maintenance, 10/06/20 13:46:00 EST, Tablet, [facility]/pharmacy #[id number], 153, cm, 08/28/20 15:44:00 EDT, Height, 89.6, kg, 12/26/19 19:50:00 EST, Dry Weight Start Date: 10/06/20 Status: Ordered MiraLax oral powder for reconstitution = 17 Gm, By Mouth, Daily, for 14 days, dissolve in water before taking, # 238 Gm, 0 Refills, Acute 04/10/21 16:14:00 EDT, 03/27/21 16:14:00 EDT, REC Powder, [facility]/pharmacy #[id number], Partial fill upon patient request if the prescription is for a schedule II... Start Date: 03/27/21 Stop Date: 04/10/21 Status: Ordered omeprazole 20 mg oral delayed release tablet 1 tablet = 20 mg, By Mouth, Daily, # 90 tablet, 0 Refills, Maintenance, 09/29/20 16:38:00 EST, EC Tablet, [facility]/pharmacy #[id number], 153, cm, 08/28/20 15:44:00 EDT, Height, 89.6, kg, 12/26/19 19:50:00 EST, Dry Weight Start Date: 09/29/20 Stop Date: 12/28/20 Status: Ordered ondansetron 4 mg oral tablet 1 tablet = 4 mg, By Mouth, Every 8 hours, PRN as needed for nausea/vomiting, # 15 tablet, 0 Refills, Maintenance, 11/24/20 14:17:00 EST, Tablet, [facility], Partial fill upon patient request if the prescription is for a schedule II opioi... Start Date: 11/24/20 Stop Date: 11/29/20 Status: Ordered Ozempic (1 mg dose) 2 mg/1.5 mL subcutaneous solution = 1 mg, Subcutaneous Injection, Every week, # 3 mL, 11 Refills, Maintenance, 06/04/20 17:34:00 EDT,Solution, [facility]/pharmacy #[id number], 153, cm, 04/23/20 14:32:00 EDT, Height, [...] Maintenance, 02/14/21 11:40:00 EDT, [facility]/pharmacy #[id number], Partial fill upon patient request if [...] Refills 11, Tot. Refills 11, Maintenance, DX: BAILEEYALGI M79.7 HEIGHT- 5' WEIGHT- 175LBS LIFETIME NEED , 02/03/21 14:22:00 EDT, Supply Start Date: 02/03/21 Status: Ordered RECLINER RECLINER, See Instructions, # 1 each, Refills 0, Tot. Refills 0, Maintenance, DX: MIKEYGI M79.7HEIGHT- 5' WEIGHT- 175LBS LIFETIME NEED FAX: [phone], 02/03/21 14:22:00 EDT, Supply Start Date: 02/03/21 [...] Route to Pharmacy Electronically, [facility]/pharmacy #[id number] Tablet, Partial fill upon patient request [...] 11/28/20 13:19:00 EST, Aerosol, [facility]/pharmacy #[id number], Partial fill upon patient request if the prescription is for a schedule II opioid drug., 153, cm, 11/28/20 12:47:00 EST, Height, 79.6, kg,... Start Date: 11/28/20 Status: Ordered topiramate 25 mg oral tablet 2 tablet, By Mouth, 2 times a day, # 360 tablet, 1 Refills, Maintenance, 03/03/21 18:31:00 EDT, [id number], [facility], cm, 02/28/21 11:14:00 EDT, Height, 79.6, kg, 12/30/20 13:59:00 EST, Dry Weight Start Date: 03/03/21 Status: Ordered topiramate 25 mg oral tablet 2 tablet = 50 mg, By Mouth, 2 times a day, # 360 tablet, 1 Refills, Maintenance, 08/09/20 9:35:00 EDT, Tablet, [facility]/pharmacy #[id number], 153, cm, 08/05/20 13:58:00 EDT, Height, [...] 02/18/21 9:54:00 EDT, Tablet, [facility]/pharmacy #[id number], 153, cm, 01/29/21 15:33:00 EST, Height,79.6, [...]
--- OUTSIDE RECORDS SUMMARY | 2023-08-13 20:28 | XMS_ITS | Continuity of Care Document ---
Author Name Unknown Organization [facility] Address [address] [place] [address]- Care Team Providers Care Tobacco Sprayer Name Role Phone Andrew COREAS, Loreta Diaz Primary Care Physician [phone] [place] [facility] Date(s): 01/13/23 - 02/12/23 [facility] [address] [place] [address]- Allergies, Adverse Reactions, Alerts Substance Reaction Severity [...] mL, 0 Refills, Maintenance, 08/31/21 20:13:00 EDT, [facility]/pharmacy #[id number], 153, cm, 08/21/21 11:10:00 [...] 10/03/21 15:12:00 EST, Route to Pharmacy Electronically, [facility]/pharmacy #[id number], 153, cm, 10/02/21 11:33:00 [...] Refills, Maintenance, 12/10/20 17:49:00 EST, [facility], 153, cm, 12/10/20 15:22:00 EST, Height, 79.6, kg, 11/21/20 21:34:00 EST, Dry Weight Start Date: 12/10/20 Status: Ordered Dulera 200 mcg-5 mcg/inh inhalation aerosol 2 puffs, Inhalation, 2 times a day, # 13 Gm, 3 Refills, Maintenance, 10/03/21 15:21:00 EST, Aerosol, [facility]/pharmacy #[id number], 2 puffs Inhalation 2 times a day, 153, cm, 10/02/21 11:33:00 EST, Height, 80, kg, 09/02/21 13:29:00 EDT, Dry Weight Start Date: 10/03/21 Status: Ordered duloxetine 60 mg oral enteric coated capsule 1 capsule, By Mouth, 2 times a day, # 180 capsule, 1 Refills, Maintenance, 10/03/21 15:20:00 EST, [facility]/pharmacy #[id number], 153, cm, 10/02/21 11:33:00 EST, Height, 80, kg, 09/02/21 13:29:00 EDT, Dry Weight Start Date: 10/03/21 Status: Ordered Emgality Prefilled Pen 120 mg/mL subcutaneous solution = 120 mg, Subcutaneous Infusion, Every 28 days, # 1 each, 1 Refills, Maintenance, 10/03/21 15:21:00EST, [facility]/pharmacy #[id number], 153, cm, 10/02/21 11:33:00 [...] 2 Refills, Maintenance, 10/03/21 15:17:00 EST, Nasal [place], [facility]/pharmacy #[id number], Partial fill upon patient [...] 09/03/21 13:19:00 EDT, Route to Pharmacy Electronically, [facility]/pharmacy #[id number], 153, cm, 09/02/21 13:58:00 EDT, Height, 80, kg, 1... Start Date: 09/03/21 Status: Ordered ipratropium nasal 42 mcg/inh spray 2 sprays, Nares, Both, 3 times a day, # 15 mL, 11 Refills, Maintenance, 10/03/21 15:19:00 EST, [place], [facility]/pharmacy #[id number], 2 sprays Nares, Both 3 times a day, 153, cm, 10/02/21 11:33:00 EST, Height, 80, kg, 09/02/21 13:29:00 EDT, Dry Weight Start Date: 10/03/21 Status: Ordered ketoconazole 2% topical shampoo 1 application, Topically, Once, # 120 mL, 1 Refills, Soft Stop, 05/07/21 8:34:00 EDT, Shampoo, [facility]/pharmacy #[id number], 1 application Topically Once, 153, cm, 05/07/21 7:55:00 EDT, Height, 79.6, kg, 12/30/20 13:59:00 EST, Dry Weight Start Date: 05/07/21 Status: Ordered lidocaine 1.8% topical film 1 patch, Topically, Daily, leave on up to 12 hours, # 30 each, 11 Refills, Maintenance, 02/22/20 9:39:00 EDT, Film, [facility]/pharmacy #[id number], 1 patch Topically Daily,Instr:leave on up to 12 hours, 153, cm,02/01/20 9:49:00 EDT, Height, 89.6, kg, 12/26/19 19... Start Date: 02/22/20 Status: Ordered Linzess 290 mcg oral capsule 1 capsule = 290 mcg, By Mouth, Daily, TAKE 1 CAPSULE BY MOUTH EVERY DAY, # 90 capsule, 0 Refills, Maintenance, 10/03/21 15:14:00 EST, Capsule, [facility]/pharmacy #[id number], Partial fill upon patient [...] EST, Supply Start Date: 10/03/21 Status: Ordered [place] 0.65% nasal spray 2 sprays, Nares, Both, [...] Unknown, 1 Refills, Maintenance, 10/03/21 15:21:00 EST, [facility]/pharmacy #[id number], 90, INJECT 1MG INTO [...] tablet, 0 Refills, Maintenance, 12/25/22 17:47:00 EST, [facility]/pharmacy #0693, Pa... Start Date: 12/25/22 Status: Ordered PEG-3350 with Electrolytes (Eqv-NuLYTELY) oral powder for reconstitution See Instructions, as directed, # 1 each, 0 Refills, Maintenance, 12/26/20 14:56:00 EST, 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 RN Member Role: Primary Care Nurse Name: Nevin Smith NP [facility] Associate Professional Member Role: Primary Care Nurse Address: Address: [address] [place] [address] [place] [address]- [place] Name: Bradly Bucio Position: [facility] RN Member Role: Primary Care Nurse Name: Elana Silver RN Position: [facility] RN Member Role: Primary Care Nurse Name: Adriana Lamar RN Position: [facility] RN Member Role: Primary Care Nurse Name: Lory Gillis RN Position: [facility] RN Member Role: Primary Care Nurse Name: Levy Buenrostro RN Position: [facility] RN Member Role: Primary Care Nurse Name: Isabela Quiroz RN Position: [facility] Outreach Member Role: Primary Care Nurse Name: Keyanna Michaels RN Position: [facility] RN Member Role: Primary Care Nurse Name: Loreta Morales NP Position: [facility] Associate Professional Member Role: PCP Address: Address: [address] [place] [id number] [place] Care Team Related Persons Name: JESSICA LAUREN Address: home [address] [place] [address] Name: LAUREN ALDANA Address: home [address] [place] [address]
--- OUTSIDE RECORDS SUMMARY | 2023-08-13 20:28 | XMS_ITS | Continuity of Care Document ---
Author Name Unknown Organization [facility] Julian Address [address] [place] [address]- Care Team Providers Care Curriculum Coach Name Role Phone Joe Valdez MD Primary Care Physician [phone] Encounter [facility] Date(s): 03/01/20 - 03/08/20 [facility] Adult [address] [place] [address]- [facility] Attending Physician: Joe Valdez MD Allergies, [...] 01/18/20 17:04:00 EST, Route to Pharmacy Electronically, [facility]/pharmacy #[id number], 153, cm, 01/09/20 9:49:00 [...] 0 Refills, Maintenance, 01/01/20 14:51:00 EST, Tablet, [facility]/pharmacy #[id number], 153, cm, 12/28/19 7:42:00 [...] each arm subcutaneously. Patient tolerated well. [facility] [id number] EXP 11/2020 LOT [id number] [facility] [id number]... Start Date: 06/02/19 Status: Ordered EpiPen 2-Freeman [...] 10/13/19 7:45:01 EST, Route to Pharmacy Electronically, [id number], [facility]/pharmacy #[id number] Start Date: 10/13/19 Status: Ordered ipratropium nasal 42 mcg/inh spray 2 sprays, Nares, Both, 3 times a day, # 15 mL, 11 Refills, Maintenance, 01/09/20 10:37:00 EST, [place], [facility]/pharmacy #[id number], 2 sprays Nares, Both 3 times a day, 153, cm, 01/09/20 9:49:00 EST, Height, 89.6, kg, 12/26/19 19:50:00 EST, Dry Weight Start Date: 01/09/20 Status: Ordered KlonoPIN 0.5 mg oral tablet 1 tablet = 0.5 mg, By Mouth, 2 times a day, # 24 tablet, 0 Refills, Maintenance, 02/21/20 16:50:00 EDT, Tablet, [facility]/pharmacy #[id number], 153, cm, 02/01/20 9:49:00 EDT, Height, 89.6, kg, 12/26/19 19:50:00 EST, Dry Weight Start Date: 02/21/20 Status: Ordered lidocaine 1.8% topical film 1 patch, Topically, Daily, leave on up to 12 hours, # 30 each, 11 Refills, Maintenance, 02/22/20 9:39:00 EDT, Film, [facility]/pharmacy #[id number], 1 patch Topically Daily,Instr:leave on up to 12 hours, 153, cm,02/01/20 9:49:00 EDT, Height, 89.6, kg, 12/26/19 19... Start Date: 02/22/20 Status: Ordered Linzess 290 mcg oral capsule 1 capsule = 290 mcg, By Mouth, Daily, # 30 capsule, 0 Refills, Maintenance, 01/01/20 14:50:00 EST, Capsule, [facility]/pharmacy #[id number], 153, cm, 12/28/19 7:42:00 [...] 1 Refills, Maintenance, 02/22/20 8:08:00 EDT, Solution, [facility]/pharmacy #[id number], 153, cm, 02/01/20 9:49:00 [...]
--- OUTSIDE RECORDS SUMMARY | 2023-08-13 20:28 | XMS_ITS | Continuity of Care Document ---
Author Name Unknown Organization [facility] ter Address [address] [place] [address]- Care Team Providers Care Cylinder Devalver Name Role Phone Courtney QUACH, Joe Carrion Primary Care Physician [phone] En[place] [facility] [place] Date(s): 12/22/19 - 12/27/[address] [address]- [facility] Encounter Diagnosis Suicidal ideation(Final) - 12/22/19 Discharge Disposition: A-D/C Home Attending Physician: Natalie Slade MD Admitting Physician: Michael Fontaine MD Referring Physician: Not on Staff, Referring [...] 10:40:48 EDT Start Date: 05/05/19 Status: Ordered DIABETIC SHOES DIABETIC SHOES, See Instructions, # 1 each, Refills 0, Tot. Refills 0, Maintenance, DX: DM E11.9 Soumya Jaquez [phone] ATTN: SANDIP, 08/22/19 16:18:20 EDT, Compound Start Date: 08/22/19 Status: Ordered diabetic shoes diabetic shoes, See Instructions, # 1 each, Refills 0, Tot. Refills 0, Maintenance, dx: DM E11.9 Soumya Jaquez, 05/26/19 8:12:35 EDT, Compound Start Date: 05/26/19 Status: Ordered Dulera 200 mcg-5 mcg/inh inhalation [...] to each arm subcutaneously. Patient tolerated well. [facility] [id number] EXP 11/2020 LOT [id number] [facility] [id number]... Start Date: 06/02/19 Status: Ordered EpiPen 2-Freeman 0.3 mg injectable kit See Instructions, Intramuscular Once, # 2 cartridge, 0 Refills, Soft Stop, 05/11/19 15:39:44 EDT Start Date: 05/11/19 Status: Ordered Flonase 2 sprays, Nares, Both, 2 times a day, 0 Refills, Maintenance, 05/05/19 10:45:08 EDT Start Date: 05/05/19 Status: Ordered Freestyle Flash Glucose Meter See Instructions, # 1 each, Maintenance, dx: DM E11.9 Soumyamarcos Murphys, 05/26/19 8:13:16 EDT, Compound Start Date: [...] 10/13/19 7:45:01 EST, Route to Pharmacy Electronically, [id number], [facility]/pharmacy #[id number] Start Date: 10/13/19 Status: Ordered KlonoPIN 0.5 mg oral tablet 1 tablet = 0.5 mg, By Mouth, 2 times a day, # 6 tablet, 0 Refills, Maintenance, 12/27/19 10:27:00 EST, Tablet Start Date: 12/27/19 Stop Date: 12/30/19 Status: Ordered metFORMIN 1000 mg oral tablet [...] Range]: 1 2 3 Height 153 cm (12/26/19 7:50 PM) Weight 89.6 kg (12/26/19 7:50 PM) 76 kg (12/26/19 8:16 AM) 76 kg (12/26/19 6:24 AM) Oxygen Saturation [94-100 %] 99 % (12/27/19 7:00 AM) 98 % (12/27/19 4:00 AM) 98 % (12/26/19 11:00 PM) Pulse Rate [55-90 bpm] 73 bpm (12/27/19 7:00 AM) 71 bpm (12/27/19 4:00 AM) 103 bpm *H* (12/26/19 11:00 PM) Body Mass Index [18.5-24.99] 38.28 *>HHI* (12/26/19 7:50 PM) Blood Pressure [90-138/55-84 mm Hg] 99/66mm Hg (12/27/19 7:00 AM) 111/75mm Hg (12/27/19 4:00 AM) 122/78mm Hg (12/26/19 11:00 PM) Respiratory Rate [16-30 br/min] 18 br/min (12/27/19 7:00 AM) 18 br/min (12/27/19 4:00 AM) 19 br/min (12/27/19 12:09 AM) Temperature [96.8-100.4 DegF] 97.8 DegF (12/27/19 7:00 AM) 97.8 DegF (12/27/19 4:00 AM) 97.7 DegF (12/26/19 11:00 PM) Mode of Delivery (Oxygen) Room air (12/27/19 7:00 AM) Room air (12/27/19 4:00 AM) Room air (12/26/19 11:00 PM) Blood pressure sites Arm, left (12/27/19 7:00 AM) Arm, left (12/27/19 4:00 AM) Arm, left (12/26/19 11:00 PM) Temperature Route Oral (12/27/19 7:00 AM) Oral (12/27/19 4:00 AM) Oral (12/26/19 11:00 PM) Dry Weight 89.6 kg (12/26/19 7:50 PM) Weight Obtained Via Bed scale (12/26/19 7:50 PM) Patient/family stated (12/25/19 8:40 PM) Dry Weight Obtained Via Bed scale (12/26/19 7:50 PM) Social History Social History Type Response Smoking Status Never smoker; Type: Cigarettes entered on: 06/28/18 Sex
--- OUTSIDE RECORDS SUMMARY | 2023-08-13 20:28 | XMS_ITS | Continuity of Care Document ---
Author Name Unknown Organization [facility] Maximo Farias Julian lt Address [address] [place] [address]- Care Team Providers Care Farmer And Grazier Name Role Phone Joe Valdez MD Primary Care Physician [place] [facility] [place]23[place] - 07/05/20 [facility] Adult [address] [place] [address]- [facility] Attending Physician: Joe Valdez MD Allergies, [...] 07/01/20 16:38:00 EDT, Route to Pharmacy Electronically, [facility]/pharmacy #[id number], 153, cm, 04/23/20 14:32:00 [...] 5 Refills, Maintenance, 05/01/20 16:21:00 EDT, Tablet, [facility]/pharmacy #[id number], 153, cm, 04/23/20 14:32:00 [...] 60 capsule, 6 Refills, Maintenance, 04/23/20 15:15:00EDT, [facility]/pharmacy #[id number], 153, cm, 04/23/20 14:32:00 EDT, Height, 89.6, kg, 12/26/19 19:50:00 EST, Dry Weight Start Date: 04/23/20 Status: Ordered Emgality Prefilled Pen 120 mg/mL subcutaneous solution = 120 mg, Subcutaneous Infusion, Every 28 days, # 1 each, 11 Refills, Maintenance, 07/03/20 14:17:00 EDT, [facility]/pharmacy #[id number], 1st dose broke NEEDS [...] 06/25/20 17:13:00 EDT, Route to Pharmacy Electronically, [facility]/pharmacy #[id number], 153, cm, 04/23/20 14:32:00 EDT, Height, 89.6, kg,... Start Date: 06/25/20 Status: Ordered ipratropium nasal 42 mcg/inh spray 2 sprays, Nares, Both, 3 times a day, # 15 mL, 11 Refills, Maintenance, 01/09/20 10:37:00 EST, [place], [facility]/pharmacy #[id number], 2 sprays Nares, Both 3 times a day, 153, cm, 01/09/20 9:49:00 EST, Height, 89.6, kg, 12/26/19 19:50:00 EST, Dry Weight Start Date: 01/09/20 Status: Ordered KlonoPIN 0.5 mg oral tablet 1 tablet = 0.5 mg, By Mouth, 2 times a day, # 14 tablet, 0 Refills, Maintenance, 04/17/20 12:00:00 EDT, Tablet, [facility]/pharmacy #[id number], 153, cm, 02/01/20 9:49:00 EDT, Height, 89.6, kg, 12/26/19 19:50:00 EST, Dry Weight Start Date: 04/17/20 Stop Date: 04/24/20 Status: Ordered lidocaine 1.8% topical film 1 patch, Topically, Daily, leave on up to 12 hours, # 30 each, 11 Refills, Maintenance, 02/22/20 9:39:00 EDT, Film, [facility]/pharmacy #[id number], 1 patch Topically Daily,Instr:leave [...] Refills, Maintenance, 07/01/20 16:38:00 EDT, EC Tablet, [facility]/pharmacy #[id number], 153, cm, 04/23/20 14:32:00 EDT, Height, 89.6, kg, 12/26/19 19:50:00 EST, Dry Weight Start Date: 07/01/20 Stop Date: 09/29/20 Status: Ordered Ozempic (1 mg dose) 2 mg/1.5 mL subcutaneous solution = 1 mg, Subcutaneous Injection, Every week, # 3 mL, 11 Refills, Maintenance, 06/04/20 17:34:00 EDT,Solution, [facility]/pharmacy #[id number], 153, cm, 04/23/20 14:32:00 [...] 1 Refills, Maintenance, 06/04/20 7:22:00 EDT, Tablet, [facility]/pharmacy #[id number], 153, cm, 04/23/20 14:32:00 EDT, Height, 89.6, kg, 12/26/19 19:50:00 EST, Dry Weight Start Date: 06/04/20 Status: Ordered zolpidem 5 mg oral tablet 1 tablet = 5 mg, By Mouth, Daily at bedtime, PRN as needed for insomnia, needs ov for further refills, # 7 tablet, 0 Refills, Maintenance, 06/14/20 11:30:00 EDT, Tablet, [facility]/pharmacy #[id number], 153, cm, 04/23/20 14:32:00 [...]
--- OUTSIDE RECORDS SUMMARY | 2023-08-13 20:28 | XMS_ITS | Continuity of Care Document ---
Author Name Unknown Organization [facility] lt Address [address] [place] [address]- Care Team Providers Care Save All Operator Name Role Phone Courtney QUACH, Joe Carrion Primary Care Physician Encounter [facility] Date(s): 02/27/21 - 03/29/21 [facility] Adult [address] [place] [address]- Allergies, Adverse Reactions, Alerts Substance Reaction Severity [...] 01/29/21 15:01:00 EST, Route to Pharmacy Electronically, [facility]/pharmacy #[id number], 153, cm, 01/01/21 8:33:00 EST, [...] Refills, Maintenance, 12/10/20 17:49:00 EST, [facility], 153, cm, 12/10/20 15:22:00 EST, Height, 79.6, [...] capsule, 5 Refills, Maintenance, 08/24/20 9:47:00 EDT, [facility]/pharmacy #[id number], 153, cm, 08/14/20 14:22:00 EDT, Height, 89.6, kg, 12/26/19 19:50:00 EST, Dry Weight Start Date: 08/24/20 Status: Ordered Emgality Prefilled Pen 120 mg/mL subcutaneous solution = 120 mg, Subcutaneous Infusion, Every 28 days, # 1 each, 11 Refills, Maintenance, 07/03/20 14:17:00 EDT, [facility]/pharmacy #[id number], 1st dose broke NEEDS ANOTHER, [...] 07/21/20 23:30:00 EDT, Route to Pharmacy Electronically, [facility]/pharmacy #[id number], 153, cm, 07/09/20 13:32:00 EDT, Height, 89.6, kg,... Start Date: 07/21/20 Status: Ordered ipratropium nasal 42 mcg/inh spray 2 sprays, Nares, Both, 3 times a day, # 15 mL, 11 Refills, Maintenance, 01/09/20 10:37:00 EST, [place], [facility]/pharmacy #0693, 2 sprays Nares, Both 3 times a day, 153, cm, 01/09/20 9:49:00 EST, Height, 89.6, kg, 12/26/19 19:50:00 EST, Dry Weight Start Date: 01/09/20 Status: Ordered KlonoPIN 0.5 mg oral tablet 1 tablet = 0.5 mg, By Mouth, 2 times a day, # 60 tablet, 0 Refills, Maintenance, 02/18/21 9:54:00 EDT, Tablet, [facility]/pharmacy #[id number], 153, cm, 01/29/21 15:33:00 EST, Height, 79.6, kg, 12/30/20 13:59:00 EST, Dry Weight Start Date: 02/18/21 Status: Ordered lidocaine 1.8% topical film 1 patch, Topically, Daily, leave on up to 12 hours, # 30 each, 11 Refills, Maintenance, 02/22/20 9:39:00 EDT, Film, [facility]/pharmacy #[id number], 1 patch Topically Daily,Instr:leave on up to 12 hours, 153, cm,02/01/20 9:49:00 EDT, Height, 89.6, kg, 12/26/19 19... Start Date: 02/22/20 Status: Ordered metFORMIN 1000 mg oral tablet 1 tablet = 1,000 mg, By Mouth, 2 times a day, new fdose Soumya Jaquez, # 180 tablet, 1 Refills, Maintenance, 10/06/20 13:46:00 EST, Tablet, [facility]/pharmacy #[id number], 153, cm, 08/28/20 15:44:00 EDT, Height, 89.6, kg, 12/26/19 19:50:00 EST, Dry Weight Start Date: 10/06/20 Status: Ordered MiraLax oral powder for reconstitution = 17 Gm, By Mouth, Daily, for 14 days, dissolve in water before taking, # 238 Gm, 0 Refills, Acute 04/10/21 16:14:00 EDT, 03/27/21 16:14:00 EDT, REC Powder, [facility]/pharmacy #[id number], Partial fill upon patient request if the prescription is for a schedule II... Start Date: 03/27/21 Stop Date: 04/10/21 Status: Ordered omeprazole 20 mg oral delayed release tablet 1 tablet = 20 mg, By Mouth, Daily, # 90 tablet, 0 Refills, Maintenance, 09/29/20 16:38:00 EST, EC Tablet, [facility]/pharmacy #[id number], 153, cm, 08/28/20 15:44:00 EDT, Height, 89.6, kg, 12/26/19 19:50:00 EST, Dry Weight Start Date: 09/29/20 Stop Date: 12/28/20 Status: Ordered ondansetron 4 mg oral tablet 1 tablet = 4 mg, By Mouth, Every 8 hours, PRN as needed for nausea/vomiting, # 15 tablet, 0 Refills, Maintenance, 11/24/20 14:17:00 EST, Tablet, [facility], Partial fill upon patient request if the prescription is for a schedule II opioi... Start Date: 11/24/20 Stop Date: 11/29/20 Status: Ordered Ozempic (1 mg dose) 2 mg/1.5 mL subcutaneous solution = 1 mg, Subcutaneous Injection, Every week, # 3 mL, 11 Refills, Maintenance, 06/04/20 17:34:00 EDT,Solution, [facility]/pharmacy #[id number], 153, cm, 04/23/20 14:32:00 EDT, Height, 89.6, kg, 12/26/19 19:50:00 EST, Dry Weight Start Date: 06/04/20 Status: Ordered Paragard IUD Maintenance, 05/05/19 10:52:19 EDT, Compound Start Date: 05/05/19 Status: Ordered PEG-3350 with Electrolytes (Eqv-NuLYTELY) oral powder for reconstitution See Instructions, as directed, # 1 each, 0 Refills, Maintenance, 12/26/20 14:56:00 EST, [facility], Ok to substitute for ANY gallon prep, as directed, 153, cm, 12/11/20 16:00:00 EST, Height, 79.6, kg, 11/21/20 21:34:00 EST, Dry Weight Start Date: 12/26/20 Status: Ordered plecanatide 3 mg oral tablet 1 tablet = 3 mg, By Mouth, Daily, # 30 tablet, 0 Refills, Maintenance, 02/14/21 11:40:00 EDT, [facility]/pharmacy #[id number], Partial fill upon patient request [...] 03/31/21 16:14:00 EDT, 03/27/21 16:14:00 EDT, Tablet, [facility]/pharmacy #[id number], Partial fill upon patient request [...] M79.7HEIGHT- 5' WEIGHT- 175LBS LIFETIME NEED FAX: [phone], 02/03/21 14:22:00 EDT, Supply Start Date: 02/03/21 [...] 03/27/21 16:14:00 EDT, Route to Pharmacy Electronically, [facility]/pharmacy #[id number] Tablet, Partial fill upon patient request [...] 11 Refills, Maintenance, 11/28/20 13:19:00 EST, [place], [facility]/pharmacy #[id number], Partial fill upon patient request if the prescription is for a schedule II opioid drug., 153, cm, 11/28/20 12:47:00 EST, Height, 79.6, kg,... Start Date: 11/28/20 Status: Ordered topiramate 25 mg oral tablet 2 tablet, By Mouth, 2 times a day, # 360 tablet, 1 Refills, Maintenance, 03/03/21 18:31:00 EDT, [facility], 153, cm, 02/28/21 11:14:00 EDT, Height, 79.6, [...]
--- OUTSIDE RECORDS SUMMARY | 2023-08-13 20:28 | XMS_ITS | Continuity of Care Document ---
Author Name Unknown Organization [facility] Maximo Farias Julian lt Address [address] [place] [address]- Care Team Providers Care Product Management Internship Name Role Phone Joe Valdez MD Primary Care Physician Encounter [facility] Date(s): 08/28/20 - 09/04/20 [facility] Adult [address] [place] [address]- [facility] Encounter Diagnosis Major depression(Discharge Diagnosis) - 08/28/20 PTSD (post-traumatic stress disorder); pyschiatry(Discharge Diagnosis) - 08/28/20 Bipolar disease, chronic(Discharge Diagnosis) - 08/28/20 DM (diabetes mellitus), type 2(Discharge Diagnosis) - 08/28/20 Constipation(Discharge Diagnosis) - 08/28/20 Fibromyalgia, primary holyk pain mnt/ failed lyrica/lamotrigine/naltrexone/gabapentin(Discharge Diagnosis) - 08/28/20 Asthma, moderate persistent(Discharge Diagnosis) - 08/28/20 Chronic rhinitis(Discharge Diagnosis) - 08/28/20 Cervical radiculopathy(Discharge Diagnosis) - 08/28/20 Hepatic steatosis(Discharge Diagnosis) - 08/28/20 Migraine(Discharge Diagnosis) - 08/28/20 Vitamin D deficiency(Discharge Diagnosis) - 08/28/20 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 Refills 1, Maintenance, 07/01/20 16:38:00 EDT, Route to Pharmacy Electronically, [facility]/pharmacy #[id number], 153, cm, 04/23/20 [...] Refills, Maintenance, 05/01/20 16:21:00 EDT, Tablet, [facility]/pharmacy #0693, 153, cm, 04/23/20 [...] mL, 11 Refills, Maintenance, 01/09/20 10:37:00 EST, [place], [facility]/pharmacy #0693, 2 sprays Nares, Both 3 times a day, 153, cm, 01/09/20 9:49:00 EST, Height, 89.6, kg, 12/26/19 19:50:00 EST, Dry Weight Start Date: 01/09/20 Status: Ordered KlonoPIN 0.5 mg oral tablet 1 tablet = 0.5 mg, By Mouth, 2 times a day, # 14 tablet, 0 Refills, Maintenance, 08/09/20 10:10:00 EDT, Tablet, [facility]/pharmacy #0693, [...] capsule, 0 Refills, Maintenance, 08/28/20 14:18:00 EDT, [facility]/pharmacy #0693, 153, [...] Maintenance, 07/01/20 16:38:00 EDT, EC Tablet, [facility]/pharmacy #0693, 153, cm, 04/23/20 14:32:00 EDT, Height, 89.6, kg, 12/26/19 19:50:00 EST, Dry Weight Start Date: 07/01/20 Stop Date: 09/29/20 Status: Ordered Ozempic (1 mg dose) 2 mg/1.5 mL subcutaneous solution = 1 mg, Subcutaneous Injection, Every week, # 3 mL, 11 Refills, Maintenance, 06/04/20 17:34:00 EDT,Solution, [facility]/pharmacy #0693, 153, cm, 04/23/20 14:32:00 EDT, Height, 89.6, kg, 12/26/19 19:50:00 EST, Dry Weight Start Date: 06/04/20 Status: Ordered Paragard IUD Maintenance, 05/05/19 10:52:19 EDT, Compound Start Date: 05/05/19 Status: Ordered predniSONE 20 mg oral tablet 1 tablet = 20 mg, By Mouth, Daily, with food or milk, # 10 tablet, 0 Refills, Maintenance, 08/05/2017:11:00 EDT, [facility]/pharmacy #0693, 153, [...] 0 Refills, Maintenance, 06/14/20 11:30:00 EDT, Tablet, [facility]/pharmacy #[id number], 153, cm, 04/23/20 14:32:00 EDT, Height, [...] Clinical Service Informant Major depression Discharge Diagnosis 08/28/20 PTSD (post-traumatic stress disorder); pyschiatry Discharge Diagnosis 08/28/20 Bipolar disease, chronic Discharge Diagnosis 08/28/20 DM (diabetes mellitus), type 2 Discharge Diagnosis 08/28/20 Constipation Discharge Diagnosis 08/28/20 Fibromyalgia, primary holyk pain mnt/ failed lyrica/lamotrigine/ naltrexone/gabapent in Discharge Diagnosis 08/28/20 Asthma, moderate persistent Discharge Diagnosis 08/28/20 Chronic rhinitis Discharge Diagnosis 08/28/20 Cervical radiculopathy Discharge Diagnosis 08/28/20 Hepatic steatosis Discharge Diagnosis 08/28/20 Migraine Discharge Diagnosis 08/28/20 Vitamin D deficiency Discharge Diagnosis 08/28/20 ASCUS with positive high risk HPV cervical Discharge Diagnosis 08/28/20 Vital Signs Most recent to oldest [Reference Range]: 1 Height 153 cm (08/28/20 3:44 PM) Social History Social History Type Response Smoking Status Never smoker; Type: Cigarettes entered on: 06/28/18 Sex
--- OUTSIDE RECORDS SUMMARY | 2023-08-13 20:28 | XMS_ITS | Continuity of Care Document ---
Author Name Unknown Organization [facility] Address [address] [place] [address]- Care Team Providers Care Veneer Taper Name Role Phone Anupama COREAS, Len Thomas Primary Care Physician [phone] [place] [facility] [place] 06/23/21 - 07/23/21 [facility] [address] [place] [address]- Allergies, Adverse Reactions, Alerts Substance Reaction Severity [...] 15:01:00 EST, Route to Pharmacy Electronically, [facility]/pharmacy #[id number], 153, cm, 01/01/21 8:33:00 EST, [...] 0 Refills, Maintenance, 05/07/21 9:18:00 EDT, Tablet, [facility], Partial fill upon [...] Refills, Maintenance, 12/10/20 17:49:00 EST, [facility], 153, cm, 12/10/20 15:22:00 EST, Height, 79.6, [...] capsule, 1 Refills, Maintenance, 06/07/21 14:13:00 EDT, [facility], 153, cm, 05/14/21 12:43:00 EDT, Height, 79.6, [...] 1 each, Maintenance, dx: DM E11.9 Soumya Jaquze, 05/26/19 8:13:16 EDT, Compound Start Date: 05/26/19 [...] mL, 11 Refills, Maintenance, 01/09/20 10:37:00 EST, [place], [facility]/pharmacy #0693, 2 sprays Nares, Both 3 times a day, 153, cm, 01/09/20 9:49:00 EST, Height, 89.6, kg, 12/26/19 19:50:00 EST, Dry Weight Start Date: 01/09/20 Status: Ordered ketoconazole 2% topical shampoo 1 application, Topically, Once, # 120 mL, 1 Refills, Soft Stop, 05/07/21 8:34:00 EDT, Shampoo, [facility]/pharmacy #0693, 1 application Topically Once, 153, cm, 05/07/21 7:55:00 EDT, Height, 79.6, kg, 12/30/20 13:59:00 EST, Dry Weight Start Date: 05/07/21 Status: Ordered KlonoPIN 0.5 mg oral tablet 1 tablet = 0.5 mg, By Mouth, 2 times a day, # 60 tablet, 0 Refills, Maintenance, 07/01/21 15:21:00 EDT, Tablet, [facility]/pharmacy #0693, 153, cm, 06/23/21 9:40:00 EDT, [...] EVERY DAY Start Date: 05/07/21 Status: Ordered [place] 0.65% nasal spray 2 sprays, Nares, Both, 4 times a day, # 1 each, 0 Refills, Maintenance, 06/23/21 9:54:00 EDT, [facility]/pharmacy #0693, Partial fill upon [...] 0 Refills, Maintenance, 11/24/20 14:17:00 EST, Tablet, [facility], Partial fill upon patient request if [...] Unknown, 1 Refills, Maintenance, 06/30/21 18:41:00 EDT, [facility]/pharmacy #0693, 90, INJECT 1MG INTO THE SKIN WEEKLY, 153, cm, 06/23/21 9:40:00 EDT, Height, 79.6, kg, 12/30/20 13:59:00 EST, Dry Weight Start Date: 06/30/21 Status: Ordered Paragard IUD Maintenance, 05/05/19 10:52:19 EDT, Compound Start Date: 05/05/19 Status: Ordered PEG-3350 with Electrolytes (Eqv-NuLYTELY) oral powder for reconstitution See Instructions, as directed, # 1 each, 0 Refills, Maintenance, 12/26/20 14:56:00 EST, [facility], Ok to substitute for ANY gallon prep, as directed, 153, cm, 12/11/20 16:00:00 EST, Height, 79.6, kg, 11/21/20 21:34:00 EST, Dry Weight Start Date: 12/26/20 Status: Ordered plecanatide 3 mg oral tablet 1 tablet = 3 mg, By Mouth, Daily, # 30 tablet, 0 Refills, Maintenance, 02/14/21 11:40:00 EDT, [facility]/pharmacy #0693, Partial fill upon [...] M79.7HEIGHT- 5' WEIGHT- 175LBS LIFETIME NEED FAX: [phone], 02/03/21 14:22:00 EDT, Supply Start Date: 02/03/21 [...] 1 Refills, Maintenance, 03/03/21 18:31:00 EDT, [facility], 153, cm, 02/28/21 11:14:00 EDT, Height, 79.6, [...]
--- OUTSIDE RECORDS SUMMARY | 2023-08-13 20:28 | XMS_ITS | Continuity of Care Document ---
Author Name Unknown Organization [facility] Jarrett Julian lt Address [address] [place] [address]- Care Team Providers Care Bill Clerk Name Role Phone Courtney QUACH, Joe Carrion Primary Care Physician [place] [facility] [place]20 [facility] Adult [address] [place] [address]- Allergies, Adverse Reactions, Alerts Substance Reaction Severity [...] 07/01/20 16:38:00 EDT, Route to Pharmacy Electronically, [facility]/pharmacy #[id number], 153, cm, 04/23/20 14:32:00 EDT, Height, [...] 5 Refills, Maintenance, 05/01/20 16:21:00 EDT, Tablet, [facility]/pharmacy #[id number], 153, cm, 04/23/20 14:32:00 EDT, Height, [...] capsule, 5 Refills, Maintenance, 08/24/20 9:47:00 EDT, [facility]/pharmacy #[id number], 153, cm, 08/14/20 14:22:00 EDT, Height, 89.6, kg, 12/26/19 19:50:00 EST, Dry Weight Start Date: 08/24/20 Status: Ordered Emgality Prefilled Pen 120 mg/mL subcutaneous solution = 120 mg, Subcutaneous Infusion, Every 28 days, # 1 each, 11 Refills, Maintenance, 07/03/20 14:17:00 EDT, [facility]/pharmacy #[id number], 1st dose broke NEEDS ANOTHER, 153, [...] 07/21/20 23:30:00 EDT, Route to Pharmacy Electronically, [facility]/pharmacy #[id number], 153, cm, 07/09/20 13:32:00 EDT, Height, 89.6, kg,... Start Date: 07/21/20 Status: Ordered ipratropium nasal 42 mcg/inh spray 2 sprays, Nares, Both, 3 times a day, # 15 mL, 11 Refills, Maintenance, 01/09/20 10:37:00 EST, [place], [facility]/pharmacy #[id number], 2 sprays Nares, Both 3 times a day, 153, cm, 01/09/20 9:49:00 EST, Height, 89.6, kg, 12/26/19 19:50:00 EST, Dry Weight Start Date: 01/09/20 Status: Ordered KlonoPIN 0.5 mg oral tablet 1 tablet = 0.5 mg, By Mouth, 2 times a day, # 14 tablet, 0 Refills, Maintenance, 09/30/20 20:51:00 EST, Tablet, [facility]/pharmacy #[id number], 153, cm, 08/28/20 15:44:00 EDT, Height, 89.6, kg, 12/26/19 19:50:00EST, Dry Weight Start Date: 09/30/20 Stop Date: 10/07/20 Status: Ordered lidocaine 1.8% topical film 1 patch, Topically, Daily, leave on up to 12 hours, # 30 each, 11 Refills, Maintenance, 02/22/20 9:39:00 EDT, Film, [facility]/pharmacy #[id number], 1 patch Topically Daily,Instr:leave on up to 12 hours, 153, cm,02/01/20 9:49:00 EDT, Height, 89.6, kg, 12/26/19 19... Start Date: 02/22/20 Status: Ordered Linzess 290 mcg oral capsule 1 capsule, By Mouth, Daily, # 30 capsule, 0 Refills, Maintenance, 09/30/20 11:27:00 EST, [id number], 153, cm, 08/28/20 15:44:00 EDT, Height, 89.6, kg, 12/26/19 19:50:00 EST, Dry Weight Start Date: 09/30/20 Status: Ordered metFORMIN 1000 mg oral tablet 1 tablet = 1,000 mg, By Mouth, 2 times a day, new fdose Soumya Jaquez, # 180 tablet, 1 Refills, Maintenance, 10/06/20 13:46:00 EST, Tablet, [facility]/pharmacy #[id number], 153, cm, 08/28/20 15:44:00 EDT, Height, 89.6, kg, 12/26/19 19:50:00 EST, Dry Weight Start Date: 10/06/20 Status: Ordered omeprazole 20 mg oral delayed release tablet 1 tablet = 20 mg, By Mouth, Daily, # 90 tablet, 0 Refills, Maintenance, 09/29/20 16:38:00 EST, EC Tablet, [facility]/pharmacy #[id number], 153, cm, 08/28/20 15:44:00 EDT, Height, 89.6, kg, 12/26/19 19:50:00 EST, Dry Weight Start Date: 09/29/20 Stop Date: 12/28/20 Status: Ordered Ozempic (1 mg dose) 2 mg/1.5 mL subcutaneous solution = 1 mg, Subcutaneous Injection, Every week, # 3 mL, 11 Refills, Maintenance, 06/04/20 17:34:00 EDT,Solution, [facility]/pharmacy #[id number], 153, cm, 04/23/20 14:32:00 EDT, Height, [...] 0 Refills, Maintenance, 09/30/20 20:51:00 EST, Tablet, [facility]/pharmacy #[id number], 10/05/20, 153, cm, 08/28/20 15:44:00 EDT, [...]
--- OUTSIDE RECORDS SUMMARY | 2023-08-13 20:28 | XMS_ITS | Continuity of Care Document ---
Author Name Unknown Organization [facility] Jarrett Julian lt Address [address] [place] [address]- Care Team Providers Care Veneer Press Operator Name Role Phone Courtney QUACH, Joe Carrion Primary Care Physician [place] [facility] [place]20 [facility] Adult [address] [place] [address]- [facility] Allergies, Adverse Reactions, Alerts Substance Reaction [...] 07/01/20 16:38:00 EDT, Route to Pharmacy Electronically, [facility]/pharmacy #[id number], 153, cm, 04/23/20 [...] 5 Refills, Maintenance, 05/01/20 16:21:00 EDT, Tablet, [facility]/pharmacy #[id number], 153, cm, 04/23/20 [...] 60 capsule, 6 Refills, Maintenance, 04/23/20 15:15:00EDT, [facility]/pharmacy #[id number], 153, cm, 04/23/20 14:32:00 EDT, Height, 89.6, kg, 12/26/19 19:50:00 EST, Dry Weight Start Date: 04/23/20 Status: Ordered Emgality Prefilled Pen 120 mg/mL subcutaneous solution = 120 mg, Subcutaneous Infusion, Every 28 days, # 1 each, 11 Refills, Maintenance, 07/03/20 14:17:00 EDT, [facility]/pharmacy #[id number], 1st dose broke [...] 07/21/20 23:30:00 EDT, Route to Pharmacy Electronically, [facility]/pharmacy #[id number], 153, cm, 07/09/20 13:32:00 EDT, Height, 89.6, kg,... Start Date: 07/21/20 Status: Ordered ipratropium nasal 42 mcg/inh spray 2 sprays, Nares, Both, 3 times a day, # 15 mL, 11 Refills, Maintenance, 01/09/20 10:37:00 EST, [place], [facility]/pharmacy #[id number], 2 sprays Nares, Both 3 times a day, 153, cm, 01/09/20 9:49:00 EST, Height, 89.6, kg, 12/26/19 19:50:00 EST, Dry Weight Start Date: 01/09/20 Status: Ordered KlonoPIN 0.5 mg oral tablet 1 tablet = 0.5 mg, By Mouth, 2 times a day, # 14 tablet, 0 Refills, Maintenance, 07/18/20 17:06:00 EDT, Tablet, [facility]/pharmacy #[id number], 153, cm, 07/09/20 13:32:00 EDT, Height, 89.6, kg, 12/26/19 19:50:00EST, Dry Weight Start Date: 07/18/20 Stop Date: 07/25/20 Status: Ordered lidocaine 1.8% topical film 1 patch, Topically, Daily, leave on up to 12 hours, # 30 each, 11 Refills, Maintenance, 02/22/20 9:39:00 EDT, Film, [facility]/pharmacy #[id number], 1 patch Topically [...] 1 Refills, Maintenance, 06/04/20 7:22:00 EDT, Tablet, [facility]/pharmacy #[id number], 153, cm, 04/23/20 [...] 0 Refills, Maintenance, 06/14/20 11:30:00 EDT, Tablet, [facility]acy #[id number], 153, cm, 04/23/20 14:32:00 EDT, Height, [...]
--- OUTSIDE RECORDS SUMMARY | 2023-08-13 20:28 | XMS_ITS | Continuity of Care Document ---
Author Name Unknown Organization [facility] Julian lt Address [address] [place] [address]- Care Team Providers Care Repair Supervisor Name Role Phone Courtney QUACH, Joe Carrion Primary Care Physician [phone] Encounter [facility] [place](s): 12/13/20 - 01/12/21 [facility] Adult [address] [place] [address]- Allergies, Adverse Reactions, Alerts Substance Reaction Severity [...] 3 Refills, Maintenance, 02/05/20 11:51:00 EDT, Solution, [facility]/pharmacy #[id number], 153, cm, 02/01/20 9:49:00 EDT, Height, 89.6, kg, 12/26/19 19:50:00 EST, Dry Weight Start Date: 02/05/20 Status: Ordered carBAMazepine 100 mg oral tablet, extended release 200 mg, 2, tablet, By Mouth, 2 times a day, # 360 tablet, Refills 1, Tot. Refills 1, Maintenance, 07/01/20 16:38:00 EDT, Route to Pharmacy Electronically, [facility]/pharmacy #[id number], 153, cm, 04/23/20 14:32:00 [...] capsule, 5 Refills, Maintenance, 12/10/20 17:49:00 EST, [id number], 153, cm, 12/10/20 15:22:00 EST, Height, 79.6, [...] capsule, 5 Refills, Maintenance, 08/24/20 9:47:00 EDT, [facility]/pharmacy #[id number], 153, cm, 08/14/20 14:22:00 EDT, Height, 89.6, kg, 12/26/19 19:50:00 EST, Dry Weight Start Date: 08/24/20 Status: Ordered Emgality Prefilled Pen 120 mg/mL subcutaneous solution = 120 mg, Subcutaneous Infusion, Every 28 days, # 1 each, 11 Refills, Maintenance, 07/03/20 14:17:00 EDT, [facility]/pharmacy #[id number], 1st dose broke NEEDS ANOTHER, [...] 07/21/20 23:30:00 EDT, Route to Pharmacy Electronically, [facility]/pharmacy #[id number], 153, cm, 07/09/20 13:32:00 EDT, Height, 89.6, kg,... Start Date: 07/21/20 Status: Ordered ipratropium nasal 42 mcg/inh spray 2 sprays, Nares, Both, 3 times a day, # 15 mL, 11 Refills, Maintenance, 01/09/20 10:37:00 EST, [place], [facility]/pharmacy #[id number], 2 sprays Nares, Both 3 times a day, 153, cm, 01/09/20 9:49:00 EST, Height, 89.6, kg, 12/26/19 19:50:00 EST, Dry Weight Start Date: 01/09/20 Status: Ordered KlonoPIN 0.5 mg oral tablet 1 tablet = 0.5 mg, By Mouth, 2 times a day, # 60 tablet, 0 Refills, Maintenance, 12/26/20 12:54:00 EST, Tablet, [facility]/pharmacy #[id number], 153, cm, 12/11/20 16:00:00 [...] 1 Refills, Maintenance, 10/06/20 13:46:00 EST, Tablet, [facility]/pharmacy #[id number], 153, cm, 08/28/20 15:44:00 EDT, Height, 89.6, kg, 12/26/19 19:50:00 EST, Dry Weight Start Date: 10/06/20 Status: Ordered omeprazole 20 mg oral delayed release tablet 1 tablet = 20 mg, By Mouth, Daily, # 90 tablet, 0 Refills, Maintenance, 09/29/20 16:38:00 EST, EC Tablet[id number], [facility], 08/28/20 15:44:00 EDT, Height, 89.6, kg, 12/26/19 19:50:00 EST, Dry Weight Start Date: 09/29/20 Stop Date: 12/28/20 Status: Ordered ondansetron 4 mg oral tablet 1 tablet = 4 mg, By Mouth, Every 8 hours, PRN as needed for nausea/vomiting, # 15 tablet, 0 Refills, Maintenance, 11/24/20 14:17:00 EST, Tablet, [facility], Partial fill upon patient request if the prescription is for a schedule II opioi... Start Date: 11/24/20 Stop Date: 11/29/20 Status: Ordered Ozempic (1 mg dose) 2 mg/1.5 mL subcutaneous solution = 1 mg, Subcutaneous Injection, Every week, # 3 mL, 11 Refills, Maintenance, 06/04/20 17:34:00 EDT,[facility], [id number], cm, 04/23/20 14:32:00 EDT, Height, 89.6, kg, 12/26/19 19:50:00 EST, Dry Weight Start Date: 06/04/20 Status: Ordered Paragard IUD Maintenance, 05/05/19 10:52:19 EDT, Compound Start Date: 05/05/19 Status: Ordered PEG-3350 with Electrolytes (Eqv-NuLYTELY) oral powder for reconstitution See Instructions, as directed, # 1 each, 0 Refills, Maintenance, 12/26/20 14:56:00 EST, [id number], Ok to substitute [...]
--- OUTSIDE RECORDS SUMMARY | 2023-08-13 20:29 | XMS_ITS | Continuity of Care Document ---
Author Name Unknown Organization [facility] Maximo Farias Julian lt Address [address] [place] [address]- Care Team Providers Care Net Trainer Name Role Phone Joe Valdez MD Primary Care Physician [place] [facility] [place] 01/01/21 - 01/08/21 [facility] [place], operated by [facility] Adult [address] [place] [address]- Encounter Diagnosis Anemia, iron deficiency ;egd/colo neg iron infusions(Discharge Diagnosis) - 01/01/21 Bipolar disease, chronic(Discharge Diagnosis) - 01/01/21 PTSD (post-traumatic stress disorder); pyschiatry(Discharge Diagnosis) - 01/01/21 Major depression(Discharge Diagnosis) - 01/01/21 Chronic back pain(Discharge Diagnosis) - 01/01/21 Chronic rhinitis(Discharge Diagnosis) - 01/01/21 DM (diabetes mellitus), type 2(Discharge Diagnosis) - 01/01/21 Asthma, moderate persistent(Discharge Diagnosis) - 01/01/21 Fibromyalgia, primary holyk pain mnt/ failed lyrica/lamotrigine/naltrexone/gabapentin(Discharge Diagnosis) - 01/01/21 Hepatic steatosis(Discharge Diagnosis) - 01/01/21 History of sleeve gastrectomy ? date(Discharge Diagnosis) - 01/01/21 Migraine(Discharge Diagnosis) - 01/01/21 Vitamin D deficiency(Discharge Diagnosis) - 01/01/21 Attending Physician: Joe Valdez MD Allergies, Adverse [...] 0 Refills, Maintenance, 07/08/20 16:24:00 EDT, Capsule, [facility]/pharmacy #[id number], 1 capsule By Mouth Every 6 [...] Refills, Maintenance, 02/05/20 11:51:00 EDT, Solution, [facility]/pharmacy #[id number], 153, cm, 02/01/20 9:49:00 EDT, Height, 89.6, kg, 12/26/19 19:50:00 EST, Dry Weight Start Date: 02/05/20 Status: Ordered carBAMazepine 100 mg oral tablet, extended release 200 mg, 2, tablet, By Mouth, 2 times a day, # 360 tablet, Refills 1, Tot. Refills 1, Maintenance, 07/01/20 16:38:00 EDT, Route to Pharmacy Electronically, [facility]/pharmacy #[id number], 153, cm, 04/23/20 14:32:00 EDT, Height, [...] Refills, Maintenance, 12/10/20 17:49:00 EST, [id number], 153, cm, 12/10/20 15:22:00 EST, Height, 79.6, [...] 5 Refills, Maintenance, 08/24/20 9:47:00 EDT, [facility]/pharmacy #[id number], 153, cm, 08/14/20 14:22:00 EDT, Height, [...] Refills, Soft Stop, 12/13/20 11:33:00 EST, Tablet,[facility]/pharmacy #[id number], Partial fill upon patient request if [...] 23:30:00 EDT, Route to Pharmacy Electronically, [facility]/pharmacy #[id number], 153, cm, 07/09/20 13:32:00 EDT, Height, 89.6, kg,... Start Date: 07/21/20 Status: Ordered ipratropium nasal 42 mcg/inh spray 2 sprays, Nares, Both, 3 times a day, # 15 mL, 11 Refills, Maintenance, 01/09/20 10:37:00 EST, [place], [facility]/pharmacy #[id number], 2 sprays Nares, Both 3 times a day, 153, cm, 01/09/20 9:49:00 EST, Height, 89.6, kg, 12/26/19 19:50:00 EST, Dry Weight Start Date: 01/09/20 Status: Ordered KlonoPIN 0.5 mg oral tablet 1 tablet = 0.5 mg, By Mouth, 2 times a day, # 60 tablet, 0 Refills, Maintenance, 12/26/20 12:54:00 EST, Tablet, [facility]/pharmacy #[id number], 153, cm, 12/11/20 16:00:00 EST, Height, 79.6, kg, 11/21/20 21:34:00EST, Dry Weight Start Date: 12/26/20 Status: Ordered lidocaine 1.8% topical film 1 patch, Topically, Daily, leave on up to 12 hours, # 30 each, 11 Refills, Maintenance, 02/22/20 9:39:00 EDT, Film, [facility]/pharmacy #[id number], 1 patch Topically Daily,Instr:leave on up [...] 0 Refills, Maintenance, 11/24/20 14:17:00 EST, Tablet, [facility], Partial fill upon patient [...] each, 0 Refills, Maintenance, 12/26/20 14:56:00 EST, [facility], Ok to substitute for [...] Refills, Maintenance, 11/28/20 13:19:00 EST, [place], [facility]/pharmacy #[id number], Partial fill upon patient request if the prescription is for a schedule II opioid drug., 153, cm, 11/28/20 12:47:00 EST, Height, 79.6, kg,... Start Date: 11/28/20 Status: Ordered topiramate 25 mg oral tablet 2 tablet = 50 mg, By Mouth, 2 times a day, # 360 tablet, 1 Refills, Maintenance, 08/09/20 9:35:00 EDT, Tablet, [facility]/pharmacy #[id number], 153, cm, 08/05/20 13:58:00 EDT, Height, [...] cm, ... Start Date: 12/19/20 Status: Ordered zolpidem 5 [...] deficiency ;egd/colo neg iron infusions Discharge Diagnosis 01/01/21 Bipolar disease, chronic Discharge Diagnosis 01/01/21 PTSD (post-traumatic stress disorder); pyschiatry Discharge Diagnosis 01/01/21 Major depression Discharge Diagnosis 01/01/21 Chronic back pain Discharge Diagnosis 01/01/21 Asthma, moderate persistent Discharge Diagnosis 01/01/21 Chronic rhinitis Discharge Diagnosis 01/01/21 DM (diabetes mellitus), type 2 Discharge Diagnosis 01/01/21 Fibromyalgia, primary holyk pain mnt/ failed lyrica/lamotrigine /naltrexone/gabape ntin Discharge Diagnosis 01/01/21 Hepatic steatosis Discharge Diagnosis 01/01/21 History of sleeve gastrectomy ? date Discharge Diagnosis 01/01/21 Migraine Discharge Diagnosis 01/01/21 Vitamin D deficiency Discharge Diagnosis 01/01/21 Procedures Procedure Date Related Diagnosis Body Site Status Colonoscopy nad 12/30/20 Completed Fiberoptic esophagoscopy sle león gastrectomy/otherwise nad 12/30/20 Comple khang Vital Signs Most recent to oldest [Reference Range]: 1 Height 153 cm (01/01/21 8:33 AM) Social History Social History Type Response Smoking Status Never smoker; Type: Cigarettes entered on: 06/28/18 Sex
--- OUTSIDE RECORDS SUMMARY | 2023-08-13 20:29 | XMS_ITS | Continuity of Care Document ---
Author Name Unknown Organization [facility] Jarrett Julian lt Address [address] [place] [address]- Care Team Providers Care Managed Services Consultant Name Role Phone Not on Staff, PCP Primary Care Physician Unavail able Encounter [facility] [place] Date(s): 03/28/21 - 05/04/21 [facility] [place], operated by [facility] Adult [address] [place] [address]- Attending Physician: Courtney QUACH, Joe Carrion Allergies, Adverse Reactions, Alerts Substance Reaction Severity [...] 01/29/21 15:01:00 EST, Route to Pharmacy Electronically, [facility]/pharmacy #[id number], 153, cm, 01/01/21 8:33:00 EST, [...] Refills, Maintenance, 12/10/20 17:49:00 EST, [facility], 153, cm, 12/10/20 15:22:00 EST, Height, 79.6, [...] capsule, 5 Refills, Maintenance, 08/24/20 9:47:00 EDT, [facility]/pharmacy #[id number], 153, cm, 08/14/20 14:22:00 EDT, Height, 89.6, kg, 12/26/19 19:50:00 EST, Dry Weight Start Date: 08/24/20 Status: Ordered Emgality Prefilled Pen 120 mg/mL subcutaneous solution = 120 mg, Subcutaneous Infusion, Every 28 days, # 1 each, 11 Refills, Maintenance, 07/03/20 14:17:00 EDT, [facility]/pharmacy #[id number], 1st dose broke NEEDS ANOTHER, [...] 07/21/20 23:30:00 EDT, Route to Pharmacy Electronically, [facility]/pharmacy #[id number], 153, cm, 07/09/20 13:32:00 EDT, Height, 89.6, kg,... Start Date: 07/21/20 Status: Ordered ipratropium nasal 42 mcg/inh spray 2 sprays, Nares, Both, 3 times a day, # 15 mL, 11 Refills, Maintenance, 01/09/20 10:37:00 EST, [place], [facility]/pharmacy #[id number], 2 sprays Nares, Both 3 times a day, 153, cm, 01/09/20 9:49:00 EST, Height, 89.6, kg, 12/26/19 19:50:00 EST, Dry Weight Start Date: 01/09/20 Status: Ordered KlonoPIN 0.5 mg oral tablet 1 tablet = 0.5 mg, By Mouth, 2 times a day, # 60 tablet, 0 Refills, Maintenance, 02/18/21 9:54:00 EDT, Tablet, [facility]/pharmacy #[id number], 153, cm, 01/29/21 15:33:00 EST, Height, 79.6, kg, 12/30/20 13:59:00 EST, Dry Weight Start Date: 02/18/21 Status: Ordered lidocaine 1.8% topical film 1 patch, Topically, Daily, leave on up to 12 hours, # 30 each, 11 Refills, Maintenance, 02/22/20 9:39:00 EDT, Film, [facility]/pharmacy #[id number], 1 patch Topically Daily,Instr:leave on up to 12 hours, 153, cm,02/01/20 9:49:00 EDT, Height, 89.6, kg, 12/26/19 19... Start Date: 02/22/20 Status: Ordered metFORMIN 1000 mg oral tablet 1 tablet = 1,000 mg, By Mouth, 2 times a day, new fdose Soumya Jaquez, # 180 tablet, 1 Refills, Maintenance, 10/06/20 13:46:00 EST, Tablet, [facility]/pharmacy #[id number], 153, cm, 08/28/20 15:44:00 EDT, Height, 89.6, kg, 12/26/19 19:50:00 EST, Dry Weight Start Date: 10/06/20 Status: Ordered omeprazole 20 mg oral delayed release tablet 1 tablet = 20 mg, By Mouth, Daily, # 90 tablet, 0 Refills, Maintenance, 09/29/20 16:38:00 EST, EC Tablet, [facility]/pharmacy #[id number], 153, cm, 08/28/20 15:44:00 EDT, Height, 89.6, kg, 12/26/19 19:50:00 EST, Dry Weight Start Date: 09/29/20 Stop Date: 12/28/20 Status: Ordered ondansetron 4 mg oral tablet 1 tablet = 4 mg, By Mouth, Every 8 hours, PRN as needed for nausea/vomiting, # 15 tablet, 0 Refills, Maintenance, 11/24/20 14:17:00 EST, Tablet, [facility], Partial fill upon patient request if the prescription is for a schedule II opioi... Start Date: 11/24/20 Stop Date: 11/29/20 Status: Ordered Ozempic (1 mg dose) 2 mg/1.5 mL subcutaneous solution = 1 mg, Subcutaneous Injection, Every week, # 3 mL, 11 Refills, Maintenance, 06/04/20 17:34:00 EDT,Solution, [facility]/pharmacy #[id number], 153, cm, 04/23/20 14:32:00 EDT, Height, 89.6, kg, 12/26/19 19:50:00 EST, Dry Weight Start Date: 06/04/20 Status: Ordered Paragard IUD Maintenance, 05/05/19 10:52:19 EDT, Compound Start Date: 05/05/19 Status: Ordered PEG-3350 with Electrolytes (Eqv-NuLYTELY) oral powder for reconstitution See Instructions, as directed, # 1 each, 0 Refills, Maintenance, 12/26/20 14:56:00 EST, [facility], Ok to substitute for ANY [...] M79.7HEIGHT- 5' WEIGHT- 175LBS LIFETIME NEED FAX: [phone], 02/03/21 14:22:00 EDT, Supply Start Date: 02/03/21 [...] 1 Refills, Maintenance, 03/03/21 18:31:00 EDT, [id number], 153, cm, 02/28/21 11:14:00 EDT, Height, 79.6, kg, 12/30/20 13:59:00 EST, Dry Weight Start Date: 03/03/21 Status: Ordered topiramate 25 mg oral tablet 2 tablet = 50 mg, By Mouth, 2 times a day, # 360 tablet, 1 Refills, Maintenance, 08/09/20 9:35:00 EDT, Tablet, [facility]/pharmacy #[id number], 153, cm, 08/05/20 13:58:00 EDT, [...]
--- OUTSIDE RECORDS SUMMARY | 2023-08-13 20:29 | XMS_ITS | Continuity of Care Document ---
Author Name Unknown Organization [facility] Julian lt Address [address] [place] [address]- Care Team Providers Care Talent Management Manager Name Role Phone Courtney QUACH, Joe Carrion Primary Care Physician Encounter [facility] Date(s): 11/12/20 - 12/12/20 [facility] Adult [address] [place] [address]- Allergies, Adverse Reactions, Alerts Substance Reaction Severity [...] 3 Refills, Maintenance, 02/05/20 11:51:00 EDT, Solution, [facility]/pharmacy #[id number], 153, cm, 02/01/20 9:49:00 EDT, Height, 89.6, kg, 12/26/19 19:50:00 EST, Dry Weight Start Date: 02/05/20 Status: Ordered carBAMazepine 100 mg oral tablet, extended release 200 mg, 2, tablet, By Mouth, 2 times a day, # 360 tablet, Refills 1, Tot. Refills 1, Maintenance, 07/01/20 16:38:00 EDT, [id number], cm, 04/23/20 14:32:00 EDT, Height, [...] capsule, 5 Refills, Maintenance, 12/10/20 17:49:00 EST, [id number], 153, cm, 12/10/20 15:22:00 EST, Height, 79.6, [...] capsule, 5 Refills, Maintenance, 08/24/20 9:47:00 EDT, [facility]/pharmacy #[id number], 153, cm, 08/14/20 14:22:00 EDT, Height, 89.6, kg, 12/26/19 19:50:00 EST, Dry Weight Start Date: 08/24/20 Status: Ordered Emgality Prefilled Pen 120 mg/mL subcutaneous solution = 120 mg, Subcutaneous Infusion, Every 28 days, # 1 each, 11 Refills, Maintenance, 07/03/20 14:17:00 EDT, [facility]/pharmacy #[id number], 1st dose broke NEEDS ANOTHER, 153, [...] 07/21/20 23:30:00 EDT, Route to Pharmacy Electronically, [facility]/pharmacy #[id number], 153, cm, 07/09/20 13:32:00 EDT, Height, 89.6, kg,... Start Date: 07/21/20 Status: Ordered ipratropium nasal 42 mcg/inh spray 2 sprays, Nares, Both, 3 times a day, # 15 mL, 11 Refills, Maintenance, 01/09/20 10:37:00 EST, [place], [facility]/pharmacy #[id number], 2 sprays Nares, Both 3 times a day, 153, cm, 01/09/20 9:49:00 EST, Height, 89.6, kg, 12/26/19 19:50:00 EST, Dry Weight Start Date: 01/09/20 Status: Ordered KlonoPIN 0.5 mg oral tablet 1 tablet = 0.5 mg, By Mouth, 2 times a day, # 60 tablet, 0 Refills, Maintenance, 11/28/20 13:19:00 EST, Tablet, [facility]/pharmacy #[id number], 153, cm, 11/28/20 12:47:00 EST, Height, [...] 1 Refills, Maintenance, 10/06/20 13:46:00 EST, Tablet, [facility]/pharmacy #[id number], 153, cm, 08/28/20 15:44:00 EDT, Height, [...] 0 Refills, Maintenance, 11/24/20 14:17:00 EST, Tablet, [facility], Partial fill upon patient request if the prescription is for a schedule II opioi... Start Date: 11/24/20 Stop Date: 11/29/20 Status: Ordered Ozempic (1 mg dose) 2 mg/1.5 mL subcutaneous solution = 1 mg, Subcutaneous Injection, Every week, # 3 mL, 11 Refills, Maintenance, 06/04/20 17:34:00 EDT,Solution, [facility]/pharmacy #[id number], 153, cm, 04/23/20 14:32:00 EDT, Height, [...] 11 Refills, Maintenance, 11/28/20 13:19:00 EST, [place], [facility]/pharmacy #[id number], Partial fill upon patient request if the prescription is for a schedule II opioid drug., 153, cm, 11/28/20 12:47:00 EST, Height, 79.6, kg,... Start Date: 11/28/20 Status: Ordered topiramate 25 mg oral tablet 2 tablet = 50 mg, By Mouth, 2 times a day, # 360 tablet, 1 Refills, Maintenance, 08/09/20 9:35:00 EDT, Tablet, [facility]/pharmacy #[id number], 153, cm, 08/05/20 13:58:00 EDT, Height, 89.6, kg, 12/26/19 19:50:00 EST, Dry Weight Start Date: 08/09/20 Status: Ordered zolpidem 5 mg oral tablet 1 tablet = 5 mg, By Mouth, Daily at bedtime, PRN as needed for insomnia, # 30 tablet, 0 Refills, Maintenance, 11/08/20 13:53:00 EST, Tablet, [facility]/pharmacy #[id number], 153, cm, 08/28/20 15:44:00 EDT, Height, [...]
--- OUTSIDE RECORDS SUMMARY | 2023-08-13 20:29 | XMS_ITS | Continuity of Care Document ---
Author Name Unknown Organization [facility] Address [address] [place] [id number]- Care Team Providers Care Lumber Sticker Name Role Phone Courtney QUACH, Joe Carrion Primary Care Physician [phone] Encounter [facility] Date(s): 01/26/20 - 03/02/[address] [address]- [facility] Attending Physician: Samir Lala MD Admitting Physician: Samir Lala MD Referring Physician: Samir Lala MD Allergies, Adverse Reactions, Alerts Substance Reaction [...] 01/18/20 17:04:00 EST, Route to Pharmacy Electronically, [facility]/pharmacy #[id number], 153, cm, 01/09/20 9:49:00 EST, [...] 0 Refills, Maintenance, 01/01/20 14:51:00 EST, Tablet, [facility]/pharmacy #[id number], 153, cm, 12/28/19 7:42:00 EST, [...] each arm subcutaneously. Patient tolerated well. [facility] [id number] EXP 11/2020 LOT [id number] [facility] [id number]... Start Date: 06/02/19 Status: Ordered EpiPen 2-Freeman [...] 10/13/19 7:45:01 EST, Route to Pharmacy Electronically, [id number], [facility]/pharmacy #[id number] Start Date: 10/13/19 Status: Ordered ipratropium nasal 42 mcg/inh spray 2 sprays, Nares, Both, 3 times a day, # 15 mL, 11 Refills, Maintenance, 01/09/20 10:37:00 EST, [place], [facility]/pharmacy #[id number], 2 sprays Nares, Both 3 times a day, 153, cm, 01/09/20 9:49:00 EST, Height, 89.6, kg, 12/26/19 19:50:00 EST, Dry Weight Start Date: 01/09/20 Status: Ordered KlonoPIN 0.5 mg oral tablet 1 tablet = 0.5 mg, By Mouth, 2 times a day, # 24 tablet, 0 Refills, Maintenance, 02/21/20 16:50:00 EDT, Tablet, [facility]/pharmacy #[id number], 153, cm, 02/01/20 9:49:00 EDT, Height, 89.6, kg, 12/26/19 19:50:00 EST, Dry Weight Start Date: 02/21/20 Status: Ordered lidocaine 1.8% topical film 1 patch, Topically, Daily, leave on up to 12 hours, # 30 each, 11 Refills, Maintenance, 02/22/20 9:39:00 EDT, Film, [facility]/pharmacy #[id number], 1 patch Topically Daily,Instr:leave on up to 12 hours, 153, cm,02/01/20 9:49:00 EDT, Height, 89.6, kg, 12/26/19 19... Start Date: 02/22/20 Status: Ordered Linzess 290 mcg oral capsule 1 capsule = 290 mcg, By Mouth, Daily, # 30 capsule, 0 Refills, Maintenance, 01/01/20 14:50:00 EST, Capsule, [facility]/pharmacy #[id number], 153, cm, 12/28/19 7:42:00 EST, [...] 1 Refills, Maintenance, 02/22/20 8:08:00 EDT, Solution, [facility]/pharmacy #[id number], 153, cm, 02/01/20 9:49:00 EDT, [...]
--- OUTSIDE RECORDS SUMMARY | 2023-08-13 20:29 | XMS_ITS | Continuity of Care Document ---
Author Name Unknown Organization [facility] Julian lt Address [address] [place] [address]- Care Team Providers Care Windows Desktop Engineer Name Role Phone Courtney QUACH, Joe Carrion Primary Care Physician Encounter [facility] Date(s): 12/18/20 - 01/17/21 [facility] Adult [address] [place] [address]- Allergies, Adverse Reactions, Alerts Substance Reaction Severity [...] 3 Refills, Maintenance, 02/05/20 11:51:00 EDT, Solution, [facility]/pharmacy #[id number], 153, cm, 02/01/20 9:49:00 EDT, Height, 89.6, kg, 12/26/19 19:50:00 EST, Dry Weight Start Date: 02/05/20 Status: Ordered carBAMazepine 100 mg oral tablet, extended release 200 mg, 2, tablet, By Mouth, 2 times a day, # 360 tablet, Refills 1, Tot. Refills 1, Maintenance, 07/01/20 16:38:00 EDT, Route to Pharmacy Electronically, [facility]/pharmacy #[id number], 153, cm, 04/23/20 14:32:00 [...] capsule, 5 Refills, Maintenance, 12/10/20 17:49:00 EST, [facility] STORE [id number], 153, cm, 12/10/20 15:22:00 EST, Height, 79.6, [...] capsule, 5 Refills, Maintenance, 08/24/20 9:47:00 EDT, [facility]/pharmacy #[id number], 153, cm, 08/14/20 14:22:00 EDT, Height, 89.6, kg, 12/26/19 19:50:00 EST, Dry Weight Start Date: 08/24/20 Status: Ordered Emgality Prefilled Pen 120 mg/mL subcutaneous solution = 120 mg, Subcutaneous Infusion, Every 28 days, # 1 each, 11 Refills, Maintenance, 07/03/20 14:17:00 EDT, [facility]/pharmacy #[id number], 1st dose broke NEEDS [...] 0 Refills, Soft Stop, 12/13/20 11:33:00 EST, Tablet,[facility]/pharmacy #0693, Partial fill upon patient [...] 07/21/20 23:30:00 EDT, Route to Pharmacy Electronically, [facility]/pharmacy #[id number], 153, cm, 07/09/20 13:32:00 EDT, Height, 89.6, kg,... Start Date: 07/21/20 Status: Ordered ipratropium nasal 42 mcg/inh spray 2 sprays, Nares, Both, 3 times a day, # 15 mL, 11 Refills, Maintenance, 01/09/20 10:37:00 EST, [place], [facility]/pharmacy #[id number], 2 sprays Nares, Both 3 times a day, 153, cm, 01/09/20 9:49:00 EST, Height, 89.6, kg, 12/26/19 19:50:00 EST, Dry Weight Start Date: 01/09/20 Status: Ordered KlonoPIN 0.5 mg oral tablet 1 tablet = 0.5 mg, By Mouth, 2 times a day, # 60 tablet, 0 Refills, Maintenance, 12/26/20 12:54:00 EST, Tablet, [facility]/pharmacy #[id number], 153, cm, 12/11/20 16:00:00 EST, Height, 79.6, kg, 11/21/20 21:34:00EST, Dry Weight Start Date: 12/26/20 Status: Ordered lidocaine 1.8% topical film 1 patch, Topically, Daily, leave on up to 12 hours, # 30 each, 11 Refills, Maintenance, 02/22/20 9:39:00 EDT, Film, [facility]/pharmacy #[id number], 1 patch Topically Daily,Instr:leave [...] 1 Refills, Maintenance, 10/06/20 13:46:00 EST, Tablet, [facility]/pharmacy #[id number], 153, cm, 08/28/20 15:44:00 EDT, Height, 89.6, kg, 12/26/19 19:50:00 EST, Dry Weight Start Date: 10/06/20 Status: Ordered omeprazole 20 mg oral delayed release tablet 1 tablet = 20 mg, By Mouth, Daily, # 90 tablet, 0 Refills, Maintenance, 09/29/20 16:38:00 EST, EC Tablet, [facility]/pharmacy #[id number], 153, cm, 08/28/20 15:44:00 EDT, Height, 89.6, kg, 12/26/19 19:50:00 EST, Dry Weight Start Date: 09/29/20 Stop Date: 12/28/20 Status: Ordered ondansetron 4 mg oral tablet 1 tablet = 4 mg, By Mouth, Every 8 hours, PRN as needed for nausea/vomiting, # 15 tablet, 0 Refills, Maintenance, 11/24/20 14:17:00 EST, Tablet, [facility], Partial fill upon patient request if the prescription is for a schedule II opioi... Start Date: 11/24/20 Stop Date: 11/29/20 Status: Ordered Ozempic (1 mg dose) 2 mg/1.5 mL subcutaneous solution = 1 mg, Subcutaneous Injection, Every week, # 3 mL, 11 Refills, Maintenance, 06/04/20 17:34:00 EDT,Solution, [facility]/pharmacy #[id number], 153, cm, 04/23/20 14:32:00 [...]
--- OUTSIDE RECORDS SUMMARY | 2023-08-13 20:29 | XMS_ITS | Continuity of Care Document ---
Author Name Unknown Organization [facility] Address [address] [place] [address]- Care Team Providers Care Financial Administrator Name Role Phone Polly QUACH, Estelle Charles Primary Care Physic gustavo Encounter [facility] Date(s): 08/21/21 - 10/08/21 [facility] [address] [place] [address]- Encounter Diagnosis Chronic rhinitis(Discharge Diagnosis) - 10/03/21 Attending Physician: Estelle Matias MD Allergies, Adverse [...] mL, 0 Refills, Maintenance, 08/31/21 20:13:00 EDT, [facility]/pharmacy #[id number], 153, cm, 08/21/21 11:10:00 EDT, [...] 10/03/21 15:12:00 EST, Route to Pharmacy Electronically, [facility]/pharmacy #[id number], 153, cm, 10/02/21 11:33:00 EST, [...] 0 Refills, Maintenance, 05/07/21 9:18:00 EDT, Tablet, [facility]/pharmacy #0600, Partial fill upon patient request if the [...] 13:59:00 EST,... Start Date: 05/14/21 Status: Ordered [facility] VITAMIN D3 25 MCG SOFTGEL TAKE [...] Refills, Maintenance, 12/10/20 17:49:00 EST, [id number], 153, cm, 12/10/20 15:22:00 EST, Height, 79.6, [...] 2 Refills, Maintenance, 10/03/21 15:17:00 EST, Nasal [place], [facility], Partial fill upon patient request if the [...] 09/03/21 13:19:00 EDT, Route to Pharmacy Electronically, [facility]/pharmacy #[id number], 153, cm, 09/02/21 13:58:00 EDT, Height, 80, kg, 1... Start Date: 09/03/21 Status: Ordered ipratropium nasal 42 mcg/inh spray 2 sprays, Nares, Both, 3 times a day, # 15 mL, 11 Refills, Maintenance, 10/03/21 15:19:00 EST, [place], [facility]/pharmacy #[id number], 2 sprays Nares, Both 3 times a day, 153, cm, 10/02/21 11:33:00 EST, Height, 80, kg, 09/02/21 13:29:00 EDT, Dry Weight Start Date: 10/03/21 Status: Ordered ketoconazole 2% topical shampoo 1 application, Topically, Once, # 120 mL, 1 Refills, Soft Stop, 05/07/21 8:34:00 EDT, Shampoo, [facility]/pharmacy #[id number], 1 application Topically Once, 153, cm, 05/07/21 7:55:00 EDT, Height, 79.6, kg, 12/30/20 13:59:00 EST, Dry Weight Start Date: 05/07/21 Status: Ordered KlonoPIN 0.5 mg oral tablet 1 tablet = 0.5 mg, By Mouth, 2 times a day, # 56 tablet, 0 Refills, Maintenance, 09/03/21 9:37:00 EDT, Tablet, [facility]/pharmacy #[id number], 153, cm, 09/02/21 13:58:00 EDT, [...] 0 Refills, Maintenance, 10/03/21 15:14:00 EST, Capsule, [facility]/pharmacy #[id number], Partial fill upon patient request [...] EST, Supply Start Date: 10/03/21 Status: Ordered Concho 0.65% nasal spray 2 sprays, Nares, Both, 4 times a day, # 1 each, 0 Refills, Maintenance, 06/23/21 9:54:00 EDT, [facility]/pharmacy #[id number], Partial fill upon patient request if the prescription is for a schedule II opioid drug., 2 sprays Nares, Both 4 times a day, 153, cm, 08... Start Date: 06/23/21 Status: Ordered omeprazole 20 mg oral delayed release tablet 1 tablet = 20 mg, By Mouth, Daily, # 90 tablet, 0 Refills, Maintenance, 10/03/21 15:20:00 EST, EC Tablet, [facility]/pharmacy #[id number], 153, cm, 10/02/21 11:33:00 EST, Height, 80, kg, 09/02/21 13:29:00 EDT, Dry Weight Start Date: 10/03/21 Stop Date: 01/01/22 Status: Ordered ondansetron 4 mg oral tablet 1 tablet = 4 mg, By Mouth, Every 8 hours, PRN as needed for nausea/vomiting, # 15 tablet, 0 Refills, Maintenance, 10/03/21 15:20:00 EST, Tablet, [facility]/pharmacy #[id number], Partial fill upon patient request [...] Unknown, 1 Refills, Maintenance, 10/03/21 15:21:00 EST, [facility]/pharmacy #[id number], 90, INJECT 1MG INTO THE SKIN WEEKLY, 153, cm, 10/02/21 11:33:00 EST,Height, 80, kg, 09/02/21 13:29:00 EDT, Dry Weight Start Date: 10/03/21 Status: Ordered Paragard IUD Maintenance, 05/05/19 10:52:19 EDT, Compound Start Date: 05/05/19 Status: Ordered PEG-3350 with Electrolytes (Eqv-NuLYTELY) oral powder for reconstitution See Instructions, as directed, # 1 each, 0 Refills, Maintenance, 12/26/20 14:56:00 EST, [facility], Ok to substitute [...] M79.7HEIGHT- 5' WEIGHT- 175LBS LIFETIME NEED FAX: [phone], 02/03/21 14:22:00 EDT, Supply Start Date: 02/03/21 [...] # 360 tablet, 1 Refills, [facility], 153, cm, 08/21/21 11:10:00 EDT, Height, 79.6, [...] Dates Health Status Cl inical Service Informant Chronic rhinitis Discharge Diagnosis 10/03/21 Non-Specified Social History Social History Type Response Smoking Status Never (less than 100 in lifetime);Never entered on: 03/24/21 Sex
--- OUTSIDE RECORDS SUMMARY | 2023-08-13 20:29 | XMS_ITS | Continuity of Care Document ---
Author Name Unknown Organization [facility] Address [address] [place] [address]- Care Team Providers Care Flue Lining Dipper Name Role Phone Anupama COREAS, Len Thomas Primary Care Physician Encounter [facility] Date(s): 06/24/21 - 07/24/21 [facility] [address] [place], [place] [address] Attending Physician: Admtr, Francisco Admitting Physician: Admtr, Francisco Referring Physician: Admtr, Ar8 Allergies, Adverse Reactions, [...] EST, Route to Pharmacy Electronically, [facility]/pharmacy #[id number], 153, cm, 01/01/21 8:33:00 EST, Height, [...] Maintenance, 05/07/21 9:18:00 EDT, Tablet, [facility]/pharmacy #[id number], Partial fill upon patient request if [...] Start Date: 05/14/21 Status: Ordered [facility] VITAMIN D3 25 MCG SOFTGEL TAKE 1 [...] Refills, Maintenance, 12/10/20 17:49:00 EST, [facility], 153, cm, 12/10/20 15:22:00 EST, Height, 79.6, [...] Refills, Maintenance, 06/07/21 14:13:00 EDT, [facility], 153, cm, 05/14/21 12:43:00 EDT, Height, 79.6, [...] EDT, Route to Pharmacy Electronically, [facility]/pharmacy #[id number], 153, cm, 07/09/20 13:32:00 EDT, Height, 89.6, kg,... Start Date: 07/21/20 Status: Ordered ipratropium nasal 42 mcg/inh spray 2 sprays, Nares, Both, 3 times a day, # 15 mL, 11 Refills, Maintenance, 01/09/20 10:37:00 EST, [place], [facility]/pharmacy #[id number], 2 sprays Nares, Both 3 times a day, 153, cm, 01/09/20 9:49:00 EST, Height, 89.6, kg, 12/26/19 19:50:00 EST, Dry Weight Start Date: 01/09/20 Status: Ordered ketoconazole 2% topical shampoo 1 application, Topically, Once, # 120 mL, 1 Refills, Soft Stop, 05/07/21 8:34:00 EDT, Shampoo, [facility]/pharmacy #[id number], 1 application Topically Once, 153, cm, 05/07/21 7:55:00 EDT, Height, 79.6, kg, 12/30/20 13:59:00 EST, Dry Weight Start Date: 05/07/21 Status: Ordered KlonoPIN 0.5 mg oral tablet 1 tablet = 0.5 mg, By Mouth, 2 times a day, # 60 tablet, 0 Refills, Maintenance, 07/01/21 15:21:00 EDT, Tablet, [facility]/pharmacy #[id number], 153, cm, 06/23/21 9:40:00 EDT, Height, 79.6, kg, 12/30/20 13:59:00 EST, Dry Weight Start Date: 07/01/21 Status: Ordered lidocaine 1.8% topical film 1 patch, Topically, Daily, leave on up to 12 hours, # 30 each, 11 Refills, Maintenance, 02/22/20 9:39:00 EDT, Film, [facility]/pharmacy #[id number], 1 patch Topically Daily,Instr:leave on up to 12 hours, 153, cm,02/01/20 9:49:00 EDT, Height, 89.6, kg, 12/26/19 19... Start Date: 02/22/20 Status: Ordered Linzess 290 mcg oral capsule TAKE 1 CAPSULE BY MOUTH EVERY DAY Start Date: 05/07/21 Status: Ordered Ila 0.65% nasal spray 2 sprays, Nares, Both, 4 times a day, # 1 each, 0 Refills, Maintenance, 06/23/21 9:54:00 EDT, [facility]/pharmacy #[id number], Partial fill upon patient request if the prescription is for a schedule II opioid drug., 2 sprays Nares, Both 4 times a day, 153, cm, ... Start Date: 06/23/21 Status: Ordered omeprazole 20 mg oral delayed release tablet 1 tablet = 20 mg, By Mouth, Daily, # 90 tablet, 0 Refills, Maintenance, 09/29/20 16:38:00 EST, EC Tablet, [facility]/pharmacy #[id number], 153, cm, 08/28/20 15:44:00 EDT, Height, 89.6, kg, 12/26/19 19:50:00 EST, Dry Weight Start Date: 09/29/20 Stop Date: 12/28/20 Status: Ordered ondansetron 4 mg oral tablet 1 tablet = 4 mg, By Mouth, Every 8 hours, PRN as needed for nausea/vomiting, # 15 tablet, 0 Refills, Maintenance, 11/24/20 14:17:00 EST, Tablet, [facility], Partial fill upon [...] Refills, Maintenance, 06/30/21 18:41:00 EDT, [facility]/pharmacy #0693, 90, INJECT 1MG INTO THE SKIN WEEKLY, 153, cm, 06/23/21 9:40:00 EDT, Height, 79.6, kg, 12/30/20 13:59:00 EST, Dry Weight Start Date: 06/30/21 Status: Ordered Paragard IUD Maintenance, 05/05/19 10:52:19 EDT, Compound Start Date: 05/05/19 Status: Ordered PEG-3350 with Electrolytes (Eqv-NuLYTELY) oral powder for reconstitution See Instructions, as directed, # 1 each, 0 Refills, Maintenance, 12/26/20 14:56:00 EST, [facility], Ok to substitute for ANY gallon prep, as directed, 153, cm, 12/11/20 16:00:00 EST, Height, 79.6, kg, 11/21/20 21:34:00 EST, Dry Weight Start Date: 12/26/20 Status: Ordered plecanatide 3 mg oral tablet 1 tablet = 3 mg, By Mouth, Daily, # 30 tablet, 0 Refills, Maintenance, 02/14/21 11:40:00 EDT, [facility]/pharmacy #0693, Partial fill upon patient request if [...] M79.7HEIGHT- 5' WEIGHT- 175LBS LIFETIME NEED FAX: [phone], 02/03/21 14:22:00 EDT, Supply Start Date: 02/03/21 [...] 1 Refills, Maintenance, 03/03/21 18:31:00 EDT, [facility], 153, cm, 02/28/21 11:14:00 EDT, Height, 79.6, kg, 12/30/20 13:59:00 EST, Dry Weight Start Date: 03/03/21 Status: Ordered topiramate 25 mg oral tablet 2 tablet = 50 mg, By Mouth, 2 times a day, # 360 tablet, 1 Refills, Maintenance, 08/09/20 9:35:00 EDT, Tablet, [facility]/pharmacy #[id number], 153, cm, 08/05/20 13:58:00 EDT, Height, [...] 3 Refills, Maintenance, 12/19/20 11:58:00 EST, Capsule, [facility]/pharmacy #0693, Partial fill upon patient request if [...] 0 Refills, Maintenance, 02/18/21 9:54:00 EDT, Tablet, [facility]/pharmacy #[id number], 153, cm, 01/29/21 15:33:00 EST, Height,79.6, [...]
--- OUTSIDE RECORDS SUMMARY | 2023-08-13 20:29 | XMS_ITS | Continuity of Care Document ---
Author Name Unknown Organization [facility] Julian lt Address [address] [place] [address]- Care Team Providers Care Manager Of Case Name Role Phone Polly QUACH, Estelle Charles Primary Care Physic gustavo Encounter [facility] Date(s): 08/18/21 - 09/17/21 [facility] [place], [facility] Adult [address] [place] [address]- Allergies, Adverse Reactions, Alerts Substance Reaction Severity [...] mL, 0 Refills, Maintenance, 08/31/21 20:13:00 EDT, [facility]/pharmacy #[id number], 153, cm, 08/21/21 11:10:00 [...] 9:18:00 EDT, Tablet, [facility]/pharmacy #[id number], Partial fill upon patient request if [...] Maintenance, LARGE PT USES 4 PER DAY DX:MIKEYGI M79.7 HEIGHT- 5' WEIGHT- 175LBS LIFETIME NEED dx n39.46, 06/23/21 11:30:00 EDT, Supply Start Date: 06/23/21 Status: Ordered docusate sodium 100 mg oral capsule 1 capsule, By Mouth, 2 times a day, PRN NEEDED FOR CONSTIPATION, # 60 capsule, 5 Refills, Maintenance, 12/10/20 17:49:00 EST, [facility], 153, cm, 12/10/20 15:22:00 EST, Height, 79.6, [...] capsule, 1 Refills, Maintenance, 06/07/21 14:13:00 EDT, [id number], 153, cm, 05/14/21 12:43:00 EDT, Height, 79.6, [...] 09/03/21 13:19:00 EDT, Route to Pharmacy Electronically, [facility]/pharmacy #[id number], 153, cm, 09/02/21 13:58:00 EDT, Height, 80, kg, 1... Start Date: 09/03/21 Status: Ordered ipratropium nasal 42 mcg/inh spray 2 sprays, Nares, Both, 3 times a day, # 15 mL, 11 Refills, Maintenance, 01/09/20 10:37:00 EST, [place], [facility]/pharmacy #[id number], 2 sprays [...] 0 Refills, Maintenance, 09/03/21 9:37:00 EDT, Tablet, [facility]/pharmacy #[id number], 153, cm, 09/02/21 13:58:00 [...] EVERY DAY Start Date: 05/07/21 Status: Ordered Calvert 0.65% nasal spray 2 sprays, Nares, Both, [...] 0 Refills, Maintenance, 11/24/20 14:17:00 EST, Tablet, [facility], Partial fill upon patient [...] each, 0 Refills, Maintenance, 12/26/20 14:56:00 EST, [facility], Ok to substitute for [...] M79.7HEIGHT- 5' WEIGHT- 175LBS LIFETIME NEED FAX: [phone], 02/03/21 14:22:00 EDT, Supply Start Date: 02/03/21 [...] 11 Refills, Maintenance, 11/28/20 13:19:00 EST, Aerosol, [facility]/pharmacy #[id number], Partial fill upon patient request if the prescription is for a schedule II opioid drug., 153, cm, 11/28/20 12:47:00 EST, Height, 79.6, kg,... Start Date: 11/28/20 Status: Ordered tamsulosin 0.4 mg oral capsule 0.4 mg, 1, capsule, By Mouth, Daily, # 7 capsule, Refills 0, Tot. Refills 0, Maintenance, 08/21/21 12:51:00 EDT, Route to Pharmacy Electronically, [facility]/pharmacy #[id number], Partial fill upon patient request if the prescription is for a schedule II opioid drKaleb. Start Date: 08/21/21 Stop Date: 08/28/21 Status: Ordered topiramate 25 mg oral tablet 2 tablet, By Mouth, 2 times a day, # 360 tablet, 1 Refills, [facility], 153, cm, 08/21/21 11:10:00 EDT, Height, 79.6, [...] 0 Refills, Maintenance, 09/03/21 9:37:00 EDT, Tablet, [id number], 153, cm, 09/02/21 13:58:00 EDT, Height,80, [...]
--- OUTSIDE RECORDS SUMMARY | 2023-08-13 20:29 | XMS_ITS | Continuity of Care Document ---
Author Name Unknown Organization [facility] Julian lt Address [address] [place] [address]- Care Team Providers Care Forestry Hunter Name Role Phone Joe Valdez MD Primary Care Physician Encounter [facility] Date(s): 01/29/21 - 02/05/21 [facility] Adult [address] [place] [address]- Encounter Diagnosis Asthma, moderate persistent(Discharge Diagnosis) - 01/29/21 Anemia, iron deficiency ;egd/colo neg iron infusions(Discharge Diagnosis) - 01/29/21 Chronic rhinitis(Discharge Diagnosis) - 01/29/21 Migraine(Discharge Diagnosis) - 01/29/21 Fibromyalgia, primary holyk pain mnt/ failed lyrica/lamotrigine/naltrexone/gabapentin(Discharge Diagnosis) - 01/29/21 Chronic back pain(Discharge Diagnosis) - 01/29/21 Attending Physician: Joe Valdez MD Allergies, Adverse [...] Refills, Maintenance, 02/05/20 11:51:00 EDT, Solution, [facility]/pharmacy #[id number], 153, cm, [...] 15:01:00 EST, Route to Pharmacy Electronically, [facility]/pharmacy #[id number], 153, cm, 01/01/21 8:33:00 [...] Refills, Maintenance, 12/10/20 17:49:00 EST, [facility], 153, cm, 12/10/20 15:22:00 EST, Height, 79.6, [...] 0 Refills, Soft Stop, 12/13/20 11:33:00 EST, Tablet,[facility]/pharmacy #0693, Partial fill upon patient [...] 23:30:00 EDT, Route to Pharmacy Electronically, [facility]/pharmacy #[id number], 153, cm, 07/09/20 13:32:00 EDT, Height, 89.6, kg,... Start Date: 07/21/20 Status: Ordered ipratropium nasal 42 mcg/inh spray 2 sprays, Nares, Both, 3 times a day, # 15 mL, 11 Refills, Maintenance, 01/09/20 10:37:00 EST, [place], [facility]/pharmacy #[id number], 2 sprays Nares, Both 3 times a day, 153, cm, 01/09/20 9:49:00 EST, Height, 89.6, kg, 12/26/19 19:50:00 EST, Dry Weight Start Date: 01/09/20 Status: Ordered KlonoPIN 0.5 mg oral tablet 1 tablet = 0.5 mg, By Mouth, 2 times a day, # 60 tablet, 0 Refills, Maintenance, 12/26/20 12:54:00 EST, Tablet, [facility]/pharmacy #[id number], 153, cm, 12/11/20 16:00:00 [...] capsule, 0 Refills, Maintenance, 01/06/21 15:57:00 EST, [facility]/pharmacy #[id number], 153, cm, 01/01/21 8:33:00 EST, Height, 79.6, kg, 12/30/20 13:59:00 EST, Dry Weight Start Date: 01/06/21 Status: Ordered metFORMIN 1000 mg oral tablet 1 tablet = 1,000 mg, By Mouth, 2 times a day, new fdose Soumya Jaquez, # 180 tablet, 1 Refills, Maintenance, 10/06/20 13:46:00 EST, Tablet, [facility]/pharmacy #[id number], 153, cm, 08/28/20 15:44:00 EDT, Height, 89.6, kg, 12/26/19 19:50:00 EST, Dry Weight Start Date: 10/06/20 Status: Ordered omeprazole 20 mg oral delayed release tablet 1 tablet = 20 mg, By Mouth, Daily, # 90 tablet, 0 Refills, Maintenance, 09/29/20 16:38:00 EST, EC Tablet, [facility]/pharmacy #[id number], 153, cm, 08/28/20 15:44:00 EDT, Height, 89.6, kg, 12/26/19 19:50:00 EST, Dry Weight Start Date: 09/29/20 Stop Date: 12/28/20 Status: Ordered ondansetron 4 mg oral tablet 1 tablet = 4 mg, By Mouth, Every 8 hours, PRN as needed for nausea/vomiting, # 15 tablet, 0 Refills, Maintenance, 11/24/20 14:17:00 EST, Tablet, [facility], Partial fill upon patient [...] 12/26/20 14:56:00 EST, [facility], Ok to substitute [...] M79.7HEIGHT- 5' WEIGHT- 175LBS LIFETIME NEED FAX: [phone], 02/03/21 14:22:00 EDT, Supply Start Date: 02/03/21 [...] Refills, Maintenance, 11/28/20 13:19:00 EST, Aerosol, [facility]/pharmacy #[id number], Partial fill upon patient request if the prescription is for a schedule II opioid drug., 153, cm, 11/28/20 12:47:00 EST, Height, 79.6, kg,... Start Date: 11/28/20 Status: Ordered topiramate 25 mg oral tablet 2 tablet = 50 mg, By Mouth, 2 times a day, # 360 tablet, 1 Refills, Maintenance, 08/09/20 9:35:00 EDT, Tablet, [facility]/pharmacy #[id number], 153, cm, 08/05/20 13:58:00 [...] Effective Dates Health Status Clinical Service Informant Asthma, moderate persistent Discharge Diagnosis 01/29/21 Anemia, iron deficiency ;egd/colo neg iron infusions Discharge Diagnosis 01/29/21 Chronic rhinitis Discharge Diagnosis 01/29/21 Migraine Discharge Diagnosis 01/29/21 Fibromyalgia, primary holyk pain mnt/ failed lyrica/lamotrigin e/naltrexone/[place] pentin Discharge Diagnosis 01/29/21 Chronic back pain Discharge Diagnosis 01/29/21 Vital Signs Most recent to oldest [Reference Range]: 1 Height 153 cm (01/29/21 3:33 PM) Social History Social History Type Response Smoking Status Never smoker; Type: Cigarettes entered on: 06/28/18 Sex
--- OUTSIDE RECORDS SUMMARY | 2023-08-13 20:29 | XMS_ITS | Continuity of Care Document ---
Author Name Unknown Organization [facility], [place], operated [facility] Julian lt Address [address] [place] [address]- Care Team Providers Care Air Battle Manager Name Role Phone Courtney QUACH, Joe Carrion Primary Care Physician [place] [facility] [facility] [id number] Date(s): 08/31/20 - 12/29/20 [facility] [place], [facility] [address] [place] [address]- Attending Physician: Joe Valdez MD Allergies, Adverse Reactions, Alerts Substance Reaction Severity Status doxycycline Active penicillin 1 Active gabapentin Active Bactrim Active Lyrica Active Nuts Anaphylactic reaction to food Active [...] Refills, Maintenance, 12/10/20 17:49:00 EST, [facility], 153, cm, 12/10/20 15:22:00 EST, Height, 79.6, [...] mL, 11 Refills, Maintenance, 01/09/20 10:37:00 EST, [place], [facility]/pharmacy #[id number], 2 sprays [...] capsule, 0 Refills, Maintenance, 12/03/20 10:27:00 EST, [facility]/pharmacy #[id number], 153, cm, 11/28/20 12:47:00 EST, [...] Refills, Maintenance, 11/24/20 14:17:00 EST, Tablet, [facility], Partial fill upon patient [...] each, 0 Refills, Maintenance, 12/26/20 14:56:00 EST, [facility], Ok to substitute [...]
--- OUTSIDE RECORDS SUMMARY | 2023-08-13 20:29 | XMS_ITS | Continuity of Care Document ---
Author Name Unknown Organization [facility] Julian lt Address [address] [place] [address]- Care Team Providers Care Smash Piecer Name Role Phone Joe Valdez MD Primary Care Physician Encounter [facility] [place] Date(s): 06/04/20 - 06/11/20 [facility] Adult [address] [place] [address]- [place] Encounter Diagnosis Cervical radiculopathy(Discharge Diagnosis) - 06/04/20 Lumbar radiculitis(Discharge Diagnosis) - 06/04/20 Fibromyalgia, primary holyk pain mnt/ failed lyrica/lamotrigine/naltrexone/gabapentin(Discharge Diagnosis) - 06/04/20 DM (diabetes mellitus), type 2(Discharge Diagnosis) - 06/04/20 Bipolar disease, chronic(Discharge Diagnosis) - 06/04/20 Attending Physician: Joe Valdez MD Allergies, Adverse [...] 3 Refills, Maintenance, 02/05/20 11:51:00 EDT, Solution, [facility]/pharmacy #[id number], 153, cm, 02/01/20 9:49:00 EDT, Height, 89.6, kg, 12/26/19 19:50:00 EST, Dry Weight Start Date: 02/05/20 Status: Ordered carBAMazepine 100 mg oral tablet, extended release 200 mg, 2, tablet, By Mouth, 2 times a day, # 120 tablet, Refills 2, Tot. Refills 2, Maintenance, 04/11/20 10:00:00 EDT, Route to Pharmacy Electronically, [facility]/pharmacy #[id number], 153, cm, 02/01/20 9:49:00 EDT, [...] 5 Refills, Maintenance, 05/01/20 16:21:00 EDT, [facility], [id number], 153, cm, 04/23/20 [...] 60 capsule, 6 Refills, Maintenance, 04/23/20 15:15:00EDT, [facility]/pharmacy #[id number], 153, cm, 04/23/20 14:32:00 EDT, Height, 89.6, kg, 12/26/19 19:50:00 EST, Dry Weight Start Date: 04/23/20 Status: Ordered Emgality Prefilled Pen 120 mg/mL subcutaneous solution = 120 mg, Subcutaneous Infusion, Every 28 days, First injection given in office, patient supplied meds. Two injections given per order one to each arm subcutaneously. Patient tolerated well. [facility] [id number] EXP 11/2020 LOT [id number] [facility] [id number]... Start Date: 06/02/19 Status: Ordered EpiPen 2-Freeman [...] Dry Weight Start Date: 01/01/20 Stop Date: 8/8/20 Status: Ordered Freestyle Lite Monitor See Instructions, [...] 04/17/20 8:55:00 EDT, Route to Pharmacy Electronically, [facility]/pharmacy #[id number],153, cm, 02/01/20 9:49:00 EDT, Height, 89.6, kg, 0... Start Date: 04/17/20 Status: Ordered ipratropium nasal 42 mcg/inh spray 2 sprays, Nares, Both, 3 times a day, # 15 mL, 11 Refills, Maintenance, 01/09/20 10:37:00 EST, [place], [facility]/pharmacy #[id number], 2 sprays Nares, Both 3 times a day, 153, cm, 01/09/20 9:49:00 EST, Height, 89.6, kg, 12/26/19 19:50:00 EST, Dry Weight Start Date: 01/09/20 Status: Ordered KlonoPIN 0.5 mg oral tablet 1 tablet = 0.5 mg, By Mouth, 2 times a day, # 14 tablet, 0 Refills, Maintenance, 04/17/20 12:00:00 EDT, Tablet, [facility]/pharmacy #[id number], 153, cm, 02/01/20 9:49:00 EDT, Height, 89.6, kg, 12/26/19 19:50:00 EST, Dry Weight Start Date: 04/17/20 Stop Date: 04/24/20 Status: Ordered lidocaine 1.8% topical film 1 patch, Topically, Daily, leave on up to 12 hours, # 30 each, 11 Refills, Maintenance, 02/22/20 9:39:00 EDT, Film, [facility]/pharmacy #[id number], 1 patch Topically Daily,Instr:leave on up to 12 hours, 153, cm,02/01/20 9:49:00 EDT, Height, 89.6, kg, 12/26/19 19... Start Date: 02/22/20 Status: Ordered Linzess 290 mcg oral capsule 1 capsule, By Mouth, Daily, # 30 capsule, 0 Refills, Maintenance, 05/20/20 11:05:00 EDT, [id number], 153, cm, 04/23/20 14:32:00 EDT, Height, 89.6, [...] mL, 11 Refills, Maintenance, 06/04/20 17:34:00 EDT,Solution, [facility]/pharmacy #[id number], 153, cm, 04/23/20 14:32:00 EDT, [...] 1 Refills, Maintenance, 06/04/20 7:22:00 EDT, Tablet, [facility]/pharmacy #[id number], 153, cm, 04/23/20 14:32:00 EDT, Height, 89.6, kg, 12/26/19 19:50:00 EST, Dry Weight Start Date: 06/04/20 Status: Ordered zolpidem 5 mg oral tablet 1 tablet = 5 mg, By Mouth, Daily at bedtime, PRN as needed for insomnia, needs ov for further refills, # 7 tablet, 0 Refills, Maintenance, 04/17/20 12:00:00 EDT, Tablet, [facility]/pharmacy #[id number], 153, cm, 02/01/20 9:49:00 EDT, [...] Effective Dates Health Status Clinical Service Informant Cervical radiculopathy Discharge Diagnosis 06/04/20 Lumbar radiculitis Discharge Diagnosis 06/04/20 Fibromyalgia, primary holyk pain mnt/ failed lyrica/lamotrigine/ naltrexone/gabapent in Discharge Diagnosis 06/04/20 DM (diabetes mellitus), type 2 Discharge Diagnosis 06/04/20 Bipolar disease, chronic Discharge Diagnosis 06/04/20 Social History Social History Type Response Smoking Status Never smoker; Type: Cigarettes entered on: 06/28/18 Sex
--- OUTSIDE RECORDS SUMMARY | 2023-08-13 20:29 | XMS_ITS | Continuity of Care Document ---
Author Name Unknown Organization [facility] lt Address [address] [place] [address]- Care Team Providers Care Wood Bucker Name Role Phone Courtney QUACH, Joe Carrion Primary Care Physician [phone] [place] [facility] [place] 10/[place]/20 [facility] [address] [place] [address]- Allergies, Adverse Reactions, Alerts Substance Reaction Severity [...] 07/01/20 16:38:00 EDT, Route to Pharmacy Electronically, [facility]/pharmacy #[id number], 153, cm, 04/23/20 14:32:00 EDT, Height, [...] 5 Refills, Maintenance, 05/01/20 16:21:00 EDT, Tablet, [facility]/pharmacy #[id number], 153, cm, 04/23/20 14:32:00 EDT, Height, [...] capsule, 5 Refills, Maintenance, 08/24/20 9:47:00 EDT, [facility]/pharmacy #[id number], 153, cm, 08/14/20 14:22:00 EDT, Height, 89.6, kg, 12/26/19 19:50:00 EST, Dry Weight Start Date: 08/24/20 Status: Ordered Emgality Prefilled Pen 120 mg/mL subcutaneous solution = 120 mg, Subcutaneous Infusion, Every 28 days, # 1 each, 11 Refills, Maintenance, 07/03/20 14:17:00 EDT, [facility]/pharmacy #[id number], 1st dose broke NEEDS ANOTHER, 153, [...] 07/21/20 23:30:00 EDT, Route to Pharmacy Electronically, [facility]/pharmacy #[id number], 153, cm, 07/09/20 13:32:00 EDT, Height, 89.6, kg,... Start Date: 07/21/20 Status: Ordered ipratropium nasal 42 mcg/inh spray 2 sprays, Nares, Both, 3 times a day, # 15 mL, 11 Refills, Maintenance, 01/09/20 10:37:00 EST, [place], [facility]/pharmacy #[id number], 2 sprays Nares, Both 3 times a day, 153, cm, 01/09/20 9:49:00 EST, Height, 89.6, kg, 12/26/19 19:50:00 EST, Dry Weight Start Date: 01/09/20 Status: Ordered KlonoPIN 0.5 mg oral tablet 1 tablet = 0.5 mg, By Mouth, 2 times a day, # 14 tablet, 0 Refills, Maintenance, 09/30/20 20:51:00 EST, Tablet, [facility]/pharmacy #[id number], 153, cm, 08/28/20 15:44:00 EDT, Height, 89.6, kg, 12/26/19 19:50:00EST, Dry Weight Start Date: 09/30/20 Stop Date: 10/07/20 Status: Ordered lidocaine 1.8% topical film 1 patch, Topically, Daily, leave on up to 12 hours, # 30 each, 11 Refills, Maintenance, 02/22/20 9:39:00 EDT, Film, [facility]/pharmacy #[id number], 1 patch Topically Daily,Instr:leave on up [...] 1 Refills, Maintenance, 10/06/20 13:46:00 EST, Tablet, [facility]/pharmacy #[id number], 153, cm, 08/28/20 15:44:00 EDT, Height, 89.6, kg, 12/26/19 19:50:00 EST, Dry Weight Start Date: 10/06/20 Status: Ordered omeprazole 20 mg oral delayed release tablet 1 tablet = 20 mg, By Mouth, Daily, # 90 tablet, 0 Refills, Maintenance, 09/29/20 16:38:00 EST, EC Tablet, [facility]/pharmacy #[id number], 153, cm, 08/28/20 15:44:00 EDT, Height, 89.6, kg, 12/26/19 19:50:00 EST, Dry Weight Start Date: 09/29/20 Stop Date: 12/28/20 Status: Ordered Ozempic (1 mg dose) 2 mg/1.5 mL subcutaneous solution = 1 mg, Subcutaneous Injection, Every week, # 3 mL, 11 Refills, Maintenance, 06/04/20 17:34:00 EDT,Solution, [facility]/pharmacy #[id number], 153, cm, 04/23/20 14:32:00 EDT, Height, [...] 0 Refills, Maintenance, 09/30/20 20:51:00 EST, Tablet, [facility]/pharmacy #[id number], 10/05/20, 153, cm, 08/28/20 15:44:00 EDT, [...]
--- OUTSIDE RECORDS SUMMARY | 2023-08-13 20:29 | XMS_ITS | Continuity of Care Document ---
Author Name Unknown Organization [facility] Guillermo pulliam [facility] Address [address], [address] [place] [address]- Care Team Providers Care Popcorn Vendor Name Role Phone Not on Staff, PCP Primary Care Physician Unavail able Encounter [facility] [place] Date(s): 03/11/21 - 04/10/21 [facility] Guillermoshirley JaneEnswerss [facility] [address], [address] [place], [place] [address] Attending Physician: AdmFrancisco jeffery Admitting Physician: Admtr, Radu8 Referring Physician: Admtr, Ar8 Allergies, Adverse Reactions, Alerts Substance Reaction Severity Status doxycycline Active penicillin 1 Active Bactrim Active Nuts Anaphylactic reaction to food Active Other Food Allergy 2 HONEY hives Active Lyrica Active gabapentin Active 1per RN, pt reports reaction was [...] 01/29/21 15:01:00 EST, Route to Pharmacy Electronically, [facility]/pharmacy #[id number], 153, cm, 01/01/21 8:33:00 EST, [...] Refills, Maintenance, 12/10/20 17:49:00 EST, [facility], 153, cm, 12/10/20 15:22:00 EST, Height, 79.6, [...] capsule, 5 Refills, Maintenance, 08/24/20 9:47:00 EDT, [facility]/pharmacy #[id number], 153, cm, 08/14/20 14:22:00 EDT, Height, 89.6, kg, 12/26/19 19:50:00 EST, Dry Weight Start Date: 08/24/20 Status: Ordered Emgality Prefilled Pen 120 mg/mL subcutaneous solution = 120 mg, Subcutaneous Infusion, Every 28 days, # 1 each, 11 Refills, Maintenance, 07/03/20 14:17:00 EDT, [facility]/pharmacy #[id number], 1st dose broke NEEDS ANOTHER, [...] 07/21/20 23:30:00 EDT, Route to Pharmacy Electronically, [facility]/pharmacy #[id number], 153, cm, 07/09/20 13:32:00 EDT, Height, 89.6, kg,... Start Date: 07/21/20 Status: Ordered ipratropium nasal 42 mcg/inh spray 2 sprays, Nares, Both, 3 times a day, # 15 mL, 11 Refills, Maintenance, 01/09/20 10:37:00 EST, [place], [facility]/pharmacy #[id number], 2 sprays Nares, Both 3 times a day, 153, cm, 01/09/20 9:49:00 EST, Height, 89.6, kg, 12/26/19 19:50:00 EST, Dry Weight Start Date: 01/09/20 Status: Ordered KlonoPIN 0.5 mg oral tablet 1 tablet = 0.5 mg, By Mouth, 2 times a day, # 60 tablet, 0 Refills, Maintenance, 02/18/21 9:54:00 EDT, Tablet, [facility]/pharmacy #[id number], 153, cm, 01/29/21 15:33:00 EST, Height, 79.6, kg, 12/30/20 13:59:00 EST, Dry Weight Start Date: 02/18/21 Status: Ordered lidocaine 1.8% topical film 1 patch, Topically, Daily, leave on up to 12 hours, # 30 each, 11 Refills, Maintenance, 02/22/20 9:39:00 EDT, Film, [facility]/pharmacy #[id number], 1 patch Topically Daily,Instr:leave on up to 12 hours, 153, cm,02/01/20 9:49:00 EDT, Height, 89.6, kg, 12/26/19 19... Start Date: 02/22/20 Status: Ordered metFORMIN 1000 mg oral tablet 1 tablet = 1,000 mg, By Mouth, 2 times a day, new fdose Soumya Jaquez, # 180 tablet, 1 Refills, Maintenance, 10/06/20 13:46:00 EST, Tablet, [facility]/pharmacy #[id number], 153, cm, 08/28/20 15:44:00 EDT, Height, 89.6, kg, 12/26/19 19:50:00 EST, Dry Weight Start Date: 10/06/20 Status: Ordered omeprazole 20 mg oral delayed release tablet 1 tablet = 20 mg, By Mouth, Daily, # 90 tablet, 0 Refills, Maintenance, 09/29/20 16:38:00 EST, EC Tablet, [facility]/pharmacy #[id number], 153, cm, 08/28/20 15:44:00 EDT, Height, 89.6, kg, 12/26/19 19:50:00 EST, Dry Weight Start Date: 09/29/20 Stop Date: 12/28/20 Status: Ordered ondansetron 4 mg oral tablet 1 tablet = 4 mg, By Mouth, Every 8 hours, PRN as needed for nausea/vomiting, # 15 tablet, 0 Refills, Maintenance, 11/24/20 14:17:00 EST, Tablet, [facility], Partial fill upon patient request if the prescription is for a schedule II opioi... Start Date: 11/24/20 Stop Date: 11/29/20 Status: Ordered Ozempic (1 mg dose) 2 mg/1.5 mL subcutaneous solution = 1 mg, Subcutaneous Injection, Every week, # 3 mL, 11 Refills, Maintenance, 06/04/20 17:34:00 EDT,Solution, [facility]/pharmacy #[id number], 153, cm, 04/23/20 14:32:00 EDT, Height, 89.6, kg, 12/26/19 19:50:00 EST, Dry Weight Start Date: 06/04/20 Status: Ordered Paragard IUD Maintenance, 05/05/19 10:52:19 EDT, Compound Start Date: 05/05/19 Status: Ordered PEG-3350 with Electrolytes (Eqv-NuLYTELY) oral powder for reconstitution See Instructions, as directed, # 1 each, 0 Refills, Maintenance, 12/26/20 14:56:00 EST, [facility], Ok to substitute for ANY gallon prep, as directed, 153, cm, 12/11/20 16:00:00 EST, Height, 79.6, kg, 11/21/20 21:34:00 EST, Dry Weight Start Date: 12/26/20 Status: Ordered plecanatide 3 mg oral tablet 1 tablet = 3 mg, By Mouth, Daily, # 30 tablet, 0 Refills, Maintenance, 02/14/21 11:40:00 EDT, [facility]/pharmacy #[id number], Partial fill upon patient request [...] M79.7HEIGHT- 5' WEIGHT- 175LBS LIFETIME NEED FAX: [phone], 02/03/21 14:22:00 EDT, Supply Start Date: 02/03/21 [...] 11 Refills, Maintenance, 11/28/20 13:19:00 EST, Aerosol, [facility]/pharmacy #[id number], Partial fill upon patient request if the prescription is for a schedule II opioid drug., 153, cm, 11/28/20 12:47:00 EST, Height, 79.6, kg,... Start Date: 11/28/20 Status: Ordered topiramate 25 mg oral tablet 2 tablet, By Mouth, 2 times a day, # 360 tablet, 1 Refills, Maintenance, 03/03/21 18:31:00 EDT, [facility], [facility], cm, 02/28/21 11:14:00 EDT, Height, 79.6, kg, 12/30/20 13:59:00 EST, Dry Weight Start Date: 03/03/21 Status: Ordered topiramate 25 mg oral tablet 2 tablet = 50 mg, By Mouth, 2 times a day, # 360 tablet, 1 Refills, Maintenance, 08/09/20 9:35:00 EDT, Tablet, [facility]/pharmacy #[id number], 153, cm, 08/05/20 13:58:00 EDT, [...]
--- OUTSIDE RECORDS SUMMARY | 2023-08-13 20:29 | XMS_ITS | Continuity of Care Document ---
Author Name Unknown Organization [facility] Adult Address [address] [place] [address]- Care Team Providers Care Airport Operations Supervisor Name Role Phone Andrew COREAS, Loreta Diaz Primary Care Physician Encounter [facility] Date(s): 12/18/22 - 01/17/23 [facility] Adult [address] [place] [address]- Attending Physician: Admtr, Ar8 Admitting Physician: Admtr, Ar8 Referring Physician: Admtr, Ar8 Allergies, Adverse Reactions, Alerts Substance Reaction Severity Status doxycycline Hives Active gabapentin Hives Active penicillin 1 Hives Active Lyrica Hives Active Bactrim hives Active Nuts Anaphylactic [...] 0 Refills, Maintenance, 08/31/21 20:13:00 EDT, [facility]/pharmacy #0693, 153, cm, 08/21/21 11:10:00 EDT, Height, [...] 15:12:00 EST, Route to Pharmacy Electronically, [facility]/pharmacy #0693, 153, cm, 10/02/21 11:33:00 EST, Height, [...] EST,... Start Date: 05/14/21 Status: Ordered [facility] VITAMIN D3 25 MCG SOFTGEL TAKE 1 [...] Refills, Maintenance, 12/10/20 17:49:00 EST, [facility], 153, cm, 12/10/20 15:22:00 EST, Height, 79.6, [...] 2 Refills, Maintenance, 10/03/21 15:17:00 EST, Nasal [place], [facility]/pharmacy #0693, Partial fill upon patient request if [...] 13:19:00 EDT, Route to Pharmacy Electronically, [facility]/pharmacy #0693, 153, cm, 09/02/21 13:58:00 EDT, Height, 80, kg, 1... Start Date: 09/03/21 Status: Ordered ipratropium nasal 42 mcg/inh spray 2 sprays, Nares, Both, 3 times a day, # 15 mL, 11 Refills, Maintenance, 10/03/21 15:19:00 EST, [place], [facility]/pharmacy #0693, 2 sprays Nares, Both 3 times a day, 153, cm, 10/02/21 11:33:00 EST, Height, 80, kg, 09/02/21 13:29:00 EDT, Dry Weight Start Date: 10/03/21 Status: Ordered ketoconazole 2% topical shampoo 1 application, Topically, Once, # 120 mL, 1 Refills, Soft Stop, 05/07/21 8:34:00 EDT, Shampoo, [facility]/pharmacy #0693, 1 application Topically Once, 153, cm, 05/07/21 7:55:00 EDT, Height, 79.6, kg, 12/30/20 13:59:00 EST, Dry Weight Start Date: 05/07/21 Status: Ordered lidocaine 1.8% topical film 1 patch, Topically, Daily, leave on up to 12 hours, # 30 each, 11 Refills, Maintenance, 02/22/20 9:39:00 EDT, Film, [facility]/pharmacy #0693, 1 patch Topically Daily,Instr:leave on up to 12 hours, 153, cm,02/01/20 9:49:00 EDT, Height, 89.6, kg, 12/26/19 19... Start Date: 02/22/20 Status: Ordered Linzess 290 mcg oral capsule 1 capsule = 290 mcg, By Mouth, Daily, TAKE 1 CAPSULE BY MOUTH EVERY DAY, # 90 capsule, 0 Refills, Maintenance, 10/03/21 15:14:00 EST, Capsule, [facility]/pharmacy #0693, Partial fill upon patient request ifthe [...] EST, Supply Start Date: 10/03/21 Status: Ordered [place] 0.65% nasal spray 2 sprays, Nares, Both, 4 times a day, # 1 each, 0 Refills, Maintenance, 06/23/21 9:54:00 EDT, [facility]/pharmacy #0693, Partial fill upon patient request if [...] Refills, Maintenance, 10/03/21 15:20:00 EST, Tablet, [facility]/pharmacy #0693, Partial fill upon patient request if [...] 1 Refills, Maintenance, 10/03/21 15:21:00 EST, [facility]/pharmacy #0693, 90, INJECT 1MG INTO THE SKIN [...] 0 Refills, Maintenance, 12/25/22 17:47:00 EST, [facility]/pharmacy #0693, Pa... Start Date: 12/25/22 Status: Ordered [...] M79.7HEIGHT- 5' WEIGHT- 175LBS LIFETIME NEED FAX: [phone], 02/03/21 14:22:00 EDT, Supply Start Date: 02/03/21 [...] Refills, Maintenance, 11/28/20 13:19:00 EST, Aerosol, [facility]/pharmacy #0693, Partial fill upon patient request if the prescription is for a schedule II opioid drug., 153, cm, 11/28/20 12:47:00 EST, Height, 79.6, kg,... Start Date: 11/28/20 Status: Ordered topiramate 25 mg oral tablet 2 tablet, By Mouth, 2 times a day, # 360 tablet, 1 Refills, [facility], 153, cm, 08/21/21 11:10:00 EDT, Height, 79.6, [...] Refills, Maintenance, 12/19/20 11:58:00 EST, [facility], [facility], Partial fill upon patient request if the [...] Active Wheelchair bound Confirmed Active GBS (Guillain Onaga syndrome) Confirmed Active Hidradenitis suppurativa Confirmed Active [...] Team Personnel Name: Kathy Mendoza RN Position: [facility] RN Member Role: Primary Care Nurse Name: Nevin Smith NP Position: [facility] PCO Associate Professional Member Role: Primary Care Nurse Address: Address: [address] [place] [address] [place] [address]- [place] Name: Bradly Bucio Position: [facility] RN Member Role: Primary Care Nurse Name: Elana Silver RN Position: [facility] PCO RN Member Role: Primary Care Nurse Name: Adriana Lamar RN Position: [facility] RN Member Role: Primary Care Nurse Name: Lory Gillis RN Position: [facility] RN Member Role: Primary Care Nurse Name: Levy Buenrostro RN Position: [facility] RN Member Role: Primary Care Nurse Name: Isabela Quiroz RN Position: [facility] Outreach Member Role: Primary Care Nurse Name: Keyanna Michaels RN Position: [facility] RN Member Role: Primary Care Nurse Name: Loreta Morales NP Position: [facility] PCO Associate Professional Member Role: PCP Address: Address: [address] [place] [id number]- [place] Care Team Related Persons Name: JESSICA LAUREN Address: home [address] [place] [address] Name: LAUREN ALDANA Address: home [address] [place] [address]
--- OUTSIDE RECORDS SUMMARY | 2023-08-13 20:29 | XMS_ITS | Continuity of Care Document ---
Author Name Unknown Organization [facility] Adult Address [address] [place] [address]- Care Team Providers Care Photographer Portrait Name Role Phone Loreta Morales NP Primary Care Physician Encounter [facility] [place] Date(s): 12/01/22 - 12/08/22 [facility] Adult [address] [place] [address]- Encounter Diagnosis Bipolar disease, chronic(Discharge Diagnosis) - 12/01/22 Depression, major, severe recurrence(Discharge Diagnosis) - 12/01/22 DM (diabetes mellitus), type 2(Discharge Diagnosis) - 12/01/22 Medication management(Discharge Diagnosis) - 12/01/22 Attending Physician: Not on Staff, Attending MD [...] mL, 0 Refills, Maintenance, 08/31/21 20:13:00 EDT, [facility]/pharmacy #0693, 153, cm, 08/21/21 11:10:00 EDT, Height, [...] 10/03/21 15:12:00 EST, Route to Pharmacy Electronically, [facility]/pharmacy #0693, 153, cm, 10/02/21 11:33:00 EST, Height, [...] 13:59:00 EST,... Start Date: 05/14/21 Status: Ordered [facility] VITAMIN D3 25 MCG SOFTGEL TAKE 1 [...] Refills, Maintenance, 12/10/20 17:49:00 EST, [facility], 153, cm, 12/10/20 15:22:00 EST, Height, 79.6, [...] 2 Refills, Maintenance, 10/03/21 15:17:00 EST, Nasal [place], [facility]/pharmacy #0693, Partial fill [...] 09/03/21 13:19:00 EDT, Route to Pharmacy Electronically, [facility]/pharmacy #0693, 153, cm, 09/02/21 13:58:00 EDT, Height, 80, kg, 1... Start Date: 09/03/21 Status: Ordered ipratropium nasal 42 mcg/inh spray 2 sprays, Nares, Both, 3 times a day, # 15 mL, 11 Refills, Maintenance, 10/03/21 15:19:00 EST, [place], [facility]/pharmacy #0693, 2 sprays Nares, Both 3 times a day, 153, cm, 10/02/21 11:33:00 EST, Height, 80, kg, 09/02/21 13:29:00 EDT, Dry Weight Start Date: 10/03/21 Status: Ordered ketoconazole 2% topical shampoo 1 application, Topically, Once, # 120 mL, 1 Refills, Soft Stop, 05/07/21 8:34:00 EDT, Shampoo, [facility]/pharmacy #0693, 1 application Topically Once, 153, cm, [...] 0 Refills, Maintenance, 10/03/21 15:14:00 EST, Capsule, [facility]/pharmacy #0693, Partial fill upon patient request ifthe [...] Maintenance, Wheezing/Shortness of Breath, Dx asthma J45.9 Soumyamarcos [place], 10/03/21 17:45:00 EST, Supply Start Date: 10/03/21 Status: Ordered [place] 0.65% nasal spray 2 sprays, Nares, Both, 4 times a day, # 1 each, 0 Refills, Maintenance, 06/23/21 9:54:00 EDT, [facility]/pharmacy #0693, Partial fill upon patient request if the prescription is for a schedule II opioid drug., 2 sprays Nares, Both 4 times a day, 153, cm, ... Start Date: 06/23/21 Status: Ordered omeprazole 20 mg oral delayed release tablet 1 tablet = 20 mg, By Mouth, Daily, # 90 tablet, 0 Refills, Maintenance, 10/03/21 15:20:00 EST, EC Tablet, [facility]/pharmacy #0693, 153, cm, 10/02/21 11:33:00 EST, Height, 80, kg, 09/02/21 13:29:00 EDT, Dry Weight Start Date: 10/03/21 Stop Date: 01/01/22 Status: Ordered ondansetron 4 mg oral tablet 1 tablet = 4 mg, By Mouth, Every 8 hours, PRN as needed for nausea/vomiting, # 15 tablet, 0 Refills, Maintenance, 10/03/21 15:20:00 EST, Tablet, [facility]/pharmacy #0693, Partial fill upon patient request if the prescription is for a schedule II opioid drug... Start Date: 10/03/21 Stop Date: 10/08/21 Status: Ordered Ozempic 2 mg/1.5 mL (1 mg dose) subcutaneous solution See Instructions, INJECT 1MG INTO THE SKIN WEEKLY, # 9 Unknown, 1 Refills, Maintenance, 10/03/21 15:21:00 EST, [facility]/pharmacy #0693, 90, INJECT 1MG INTO THE SKIN WEEKLY, 153, cm, 10/02/21 11:33:00 EST,Height, 80, kg, 09/02/21 13:29:00 EDT, Dry Weight Start Date: 10/03/21 Status: Ordered Paragard IUD Maintenance, 05/05/19 10:52:19 EDT, Compound Start Date: 05/05/19 Status: Ordered PEG-3350 with Electrolytes (Eqv-NuLYTELY) oral powder for reconstitution See Instructions, as directed, # 1 each, 0 Refills, Maintenance, 12/26/20 14:56:00 EST, [facility], [place] to substitute for ANY gallon prep, as [...] M79.7HEIGHT- 5' WEIGHT- 175LBS LIFETIME NEED FAX: [phone], 02/03/21 14:22:00 EDT, Supply Start Date: 02/03/21 [...] a day, # 360 tablet, 1 Refills, [facility], 153, cm, 08/21/21 11:10:00 EDT, Height, 79.6, [...] 3 Refills, Maintenance, 12/19/20 11:58:00 EST, Capsule, [facility]/pharmacy #0693, Partial [...] Service Informant Bipolar disease, chronic Discharge Diagnosis 12/01/22 Depression, major, severe recurrence Discharge Diagnosis 12/01/22 DM (diabetes mellitus), type 2 Discharge Diagnosis 12/01/22 Medication management Discharge Diagnosis 12/01/22 Vital Signs Most recent to oldest [Reference Range]: 1 Height 153 cm (12/01/22 11:37 AM) Oxygen Saturation [94-100 %] 97 % (12/01/22 11:37 AM) Pulse Rate [55-90 bpm] 91 bpm *H* (12/01/22 11:37 AM) Blood Pressure [90-138/55-84 mm Hg] 111/ 77mm Hg (12/01/22 11:37 AM) Respiratory Rate [16-30 br/min] 18 br/mi n (12/01/22 11:37 AM) Temperature [96.8-100.4 DegF] 98.1 DegF (12/01/22 11:37 AM) Mode of Delivery (Oxygen) Room air (12/01/22 11:37 AM) Blood pressure sites Arm, right (12/01/22 11:37 AM) Temperature Route Temporal (12/01/22 11:37 AM) Weight Obtained Via Standing scale (12/01/22 11:37 AM) Social History Social History Type Response Smoking Status Never (less than 100 in lifetime);Never entered on: 03/24/21 Sex Note * Kerry Triplett: PERFORM, SIGN, VERIFY Event Display: Patient Education/Instruction Authored Date: [id number] [facility] *[facility] [place] [facility] Clinical Summary Name VINEET SANTIAGO Age 42 Years 1980 PCP Andrew COREAS, Loreta Diaz PCP Visit Date 12/01/2022 11:30:00 Additional Instructions: Scheduled Appointments?? Future Appointments ?*[facility] ?[address]??[place],??[place],??[address] ?Phone:??--?Fax:??-- ?Appt. Date:??12/14/2022?2:30 PM ?Scheduled Provider:??Hunter Platt NP Follow-Up Instructions ?? 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 Discuss any questions related to medications with your provider. Medications to Continue Taking That Have Changed [facility]/pharmacy #5007, [address] [place] [phone], [phone] - Acetaminophen/Butalbital/Caffeine (acetaminophen/butalbital/caffeine 300 mg-50 mg-40 mg oral capsule) 1 capsule Oral every 6 hours for 7 Days. not to exceed 6 capsules/day. Refills: 1. Next Dose: Medications to Continue with No Changes These medications were not printed or sent to your pharmacy Albuterol (albuterol 0.083% inhalation solution) TAKE 1 [...] Next Dose: Durable Medical Equipment (Bedpads) DX: FIBROMKATIE M79.7 HEIGHT- 5' WEIGHT- 175LBS LIFETIME NEED [...] HEIGHT- 5' WEIGHT- 175LBS LIFETIME NEED FAX: [phone]. Refills: 0. Next Dose: Durable Medical Equipment [...] Dose: Miscellaneous Rx (READY BATH WIPES) DX: MIKEYMERLIN M79.7 HEIGHT- 5' WEIGHT- 175LBS LIFETIME NEED . Refills: 11. Next Dose: Miscellaneous Rx (see below) [place] Injured hip.. Refills: 0. Next Dose: Miscellaneous Rx (SMALL COMRESSION GLOVES) DX: Fibromyalgia Soumya Jaquez. Refills: 0. Next Dose: Miscellaneous Rx (WIPES) DX: BAILEEKATIE M79.7 HEIGHT- 5' WEIGHT- 175LBS LIFETIME NEED . Refills: 11. Next Dose: Omeprazole (omeprazole 20 mg oral delayed release tablet) 1 tab(s) Oral Daily for 90 Days. Refills:0. Next Dose: Ondansetron (ondansetron 4 mg oral tablet) 1 tab(s) Oral every 8 hours as needed as needed for nausea/vomiting for 5 Days. Refills: 0. Next Dose: PEG Electrolyte Solution (PEG-3350 with Electrolytes (Eqv-NuLYTELY) oral powder for reconstitution)as directed. Refills: 0. Next Dose: Prazosin (prazosin 2 mg oral capsule) 1 capsule Oral 3 times a day. Next Dose: Quetiapine (SEROquel 100 mg oral tablet) 1 tab(s) Oral Daily at Bedtime. Next Dose: semaglutide (Ozempic 2 mg/1.5 mL (1 mg dose) subcutaneous solution) INJECT 1MG INTO THE SKIN WEEKLY. Refills: 1. Next Dose: Sertraline (sertraline 100 mg oral tablet) 1 tab(s) Oral Daily. Next Dose: Sodium Chloride Nasal ([place] 0.65% nasal spray) 2 spray(s) Nares, Both [...] for 28 Days. Refills: 0. Next Dose: No Longer Take the Following Medications Acetaminophen (Tylenol 325 mg oral tablet) 3 tab(s) Oral 3 times a day as needed Headache. not to exceed 4000 mg/day. Allergy Info:?? Lyrica; Other Food Allergy; Nuts; Bactrim; gabapentin; penicillin; doxycycline Medications Given This Visit Future Orders ?No future orders Vital Signs Height 153 cm Weight BMI Blood Pressure 111 mm Hg/77 mm Hg Temperature 98.1 DegF Pulse Rate 91 bpm Respiratory Rate 18 br/min 02 Sat Mode of Delivery 97 %/Room air You can now view a summary of your hospital visit from the comfort of your home through a free online portal called [employer]. [employer] is a website that allows you to securely view your medical information including discharge summary, medications and follow-up visits. ??You can alsosend a secure electronic message to your doctor???s office to request appointments, renew medications or just ask a question. You can enroll at [email or web address] or register during your next office visit. [...] primary care provider, you may find a [facility] provider by calling [facility] [employer] at [phone]. For information about the plan of care [...] Team Personnel Name: Kathy Mendoza RN Position: [facility] RN Member Role: Primary Care Nurse Name: Luis COREAS, Nevin Baig Position: [facility] Associate Professional Member Role: Primary Care Nurse Address: Address: [address] [place] [address] [place] [address]- [place] Name: Bradly Bucio Position: S RN Member Role: Primary Care Nurse Name: Elana Silver RN Position: [facility] RN Member Role: Primary Care Nurse Name: Adriana Lamar RN Position: [facility] RN Member Role: Primary Care Nurse Name: Lory Gillis RN Position: [facility] RN Member Role: Primary Care Nurse Name: Levy Buenrostro RN Position: [facility] RN Member Role: Primary Care Nurse Name: Isabela Quiroz RN Position: [facility] Outreach Member Role: Primary Care Nurse Name: Keyanna Michaels RN Position: [facility] RN Member Role: Primary Care Nurse Name: Loreta Morales NP Position: [facility] PCO Associate Professional Member Role: PCP Address: Address: [address] [place] [address] [address] [place] [address]- [place] Care Team Related Persons Name: LEONIDAS JESSICA Address: home [address] [place] [address] Name: LAUREN ALDANA Address: home [address] [place] [address]
--- OUTSIDE RECORDS SUMMARY | 2023-08-13 20:29 | XMS_ITS | Continuity of Care Document ---
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 Start Date: 05/14/21 Status: Ordered [facility] VITAMIN D3 25 MCG SOFTGEL TAKE [...] Refills, Maintenance, 12/10/20 17:49:00 EST, [facility], 153, cm, 12/10/20 15:22:00 EST, Height, 79.6, [...] mL, 11 Refills, Maintenance, 01/09/20 10:37:00 EST, [place], [facility]/pharmacy #0693, 2 sprays Nares, Both 3 times a day, 153, cm, 01/09/20 9:49:00 EST, Height, 89.6, kg, 12/26/19 19:50:00 EST, Dry Weight Start Date: 01/09/20 Status: Ordered ketoconazole 2% topical shampoo 1 application, Topically, Once, # 120 mL, 1 Refills, Soft Stop, 05/07/21 8:34:00 EDT, Shampoo, [facility]/pharmacy #0693, 1 application Topically Once, 153, cm, 05/07/21 7:55:00 EDT, Height, 79.6, kg, 12/30/20 13:59:00 EST, Dry Weight Start Date: 05/07/21 Status: Ordered KlonoPIN 0.5 mg oral tablet 1 tablet = 0.5 mg, By Mouth, 2 times a day, # 60 tablet, 0 Refills, Maintenance, 02/18/21 9:54:00 EDT, Tablet, [facility]/pharmacy #0693, 153, cm, 01/29/21 15:33:00 EST, [...] Maintenance, 09/29/20 16:38:00 EST, EC Tablet, [facility]/pharmacy #0693, 153, cm, 08/28/20 15:44:00 EDT, Height, 89.6, kg, 12/26/19 19:50:00 EST, Dry Weight Start Date: 09/29/20 Stop Date: 12/28/20 Status: Ordered ondansetron 4 mg oral tablet 1 tablet = 4 mg, By Mouth, Every 8 hours, PRN as needed for nausea/vomiting, # 15 tablet, 0 Refills, Maintenance, 11/24/20 14:17:00 EST, Tablet, [facility], Partial fill upon patient request [...] 11 Refills, Maintenance, 06/04/20 17:34:00 EDT,Solution, [facility]/pharmacy #0693, 153, cm, 04/23/20 14:32:00 EDT, Height, 89.6, kg, 12/26/19 19:50:00 EST, Dry Weight Start Date: 06/04/20 Status: Ordered Paragard IUD Maintenance, 05/05/19 10:52:19 EDT, Compound Start Date: 05/05/19 Status: Ordered PEG-3350 with Electrolytes (Eqv-NuLYTELY) oral powder for reconstitution See Instructions, as directed, # 1 each, 0 Refills, Maintenance, 12/26/20 14:56:00 EST, [facility], [place] to substitute for ANY gallon prep, as directed, 153, cm, 12/11/20 16:00:00 EST, Height, 79.6, kg, 11/21/20 21:34:00 EST, Dry Weight Start Date: 12/26/20 Status: Ordered plecanatide 3 mg oral tablet 1 tablet = 3 mg, By Mouth, Daily, # 30 tablet, 0 Refills, Maintenance, 02/14/21 11:40:00 EDT, [facility]/pharmacy #0672, Partial fill upon patient request if the prescription is for a schedule II opioid drug., 153, cm, 01/29/21 15:33:00 EST, Height, 79.6, kg... Start Date: 02/14/21 Status: Ordered PNEUMATIC PUMP AND SLEEVE PNEUMATIC PUMP AND SLEEVE, See Instructions, # 1 each, Refills 0, Tot. Refills 0, Maintenance, DX: BAILEEDONTRELLGI M79.7 HEIGHT- 5' WEIGHT- 175LBS LIFETIME NEED [...] M79.7HEIGHT- 5' WEIGHT- 175LBS LIFETIME NEED FAX: [phone], 02/03/21 14:22:00 EDT, Supply Start Date: 02/03/21 [...] Refills, Maintenance, 11/28/20 13:19:00 EST, Aerosol, [facility]/pharmacy #0693, Partial fill upon patient request if the prescription is for a schedule II opioid drug., 153, cm, 11/28/20 12:47:00 EST, Height, 79.6, kg,... Start Date: 11/28/20 Status: Ordered topiramate 25 mg oral tablet 2 tablet, By Mouth, 2 times a day, # 360 tablet, 1 Refills, Maintenance, 03/03/21 18:31:00 EDT, [facility], 153, cm, 02/28/21 11:14:00 EDT, Height, 79.6, [...]
--- OUTSIDE RECORDS SUMMARY | 2023-08-13 20:29 | XMS_ITS | Continuity of Care Document ---
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 Role Phone Anupama COREAS, Len Thomas Primary Care Physician Encounter [facility] Date(s): 06/23/21 - 06/30/21 [facility] [address] [place], [place] [address] Encounter Diagnosis Acute sinus infection(Discharge Diagnosis) - 06/23/21 Attending Physician: Sal Silva Referring Physician: Len Altman NP Allergies, Adverse Reactions, Alerts Substance Reaction [...] 3 Refills, Maintenance, 02/05/20 11:51:00 EDT, Solution, [facility]/pharmacy #[id number], 153, cm, 02/01/20 9:49:00 [...] Refills, Soft Stop, 06/24/21 13:18:00 EDT, Tablet, [facility]/pharmacy #0693, Partial fill upon patient [...] 15:01:00 EST, Route to Pharmacy Electronically, [facility]/pharmacy #[id number], 153, cm, 01/01/21 8:33:00 EST, [...] Refills, Maintenance, 05/07/21 9:18:00 EDT, Tablet, [facility]/pharmacy #0693, Partial fill upon patient [...] capsule, 5 Refills, Maintenance, 12/10/20 17:49:00 EST, [facility], 153, cm, 12/10/20 15:22:00 EST, Height, 79.6, [...] Refills, Maintenance, 06/07/21 14:13:00 EDT, [facility], 153, cm, 05/14/21 12:43:00 EDT, Height, 79.6, kg, 12/30/20 13:59:00 EST, Dry Weight Start Date: 06/07/21 Status: Ordered Emgality Prefilled Pen 120 mg/mL subcutaneous solution = 120 mg, Subcutaneous Infusion, Every 28 days, # 1 each, 11 Refills, Maintenance, 07/03/20 14:17:00 EDT, [facility]/pharmacy #0693, 1st dose broke NEEDS [...] 23:30:00 EDT, Route to Pharmacy Electronically, [facility]/pharmacy #[id number], 153, cm, 07/09/20 13:32:00 EDT, Height, 89.6, kg,... Start Date: 07/21/20 Status: Ordered ipratropium nasal 42 mcg/inh spray 2 sprays, Nares, Both, 3 times a day, # 15 mL, 11 Refills, Maintenance, 01/09/20 10:37:00 EST, [place], [facility], 2 sprays Nares, Both 3 times a day, 153, cm, 01/09/20 9:49:00 EST, Height, 89.6, kg, 12/26/19 19:50:00 EST, Dry Weight Start Date: 01/09/20 Status: Ordered ketoconazole 2% topical shampoo 1 application, Topically, Once, # 120 mL, 1 Refills, Soft Stop, 05/07/21 8:34:00 EDT, Shampoo, [facility], 1 application Topically Once, 153, cm, 05/07/21 7:55:00 EDT, Height, 79.6, kg, 12/30/20 13:59:00 EST, Dry Weight Start Date: 05/07/21 Status: Ordered KlonoPIN 0.5 mg oral tablet 1 tablet = 0.5 mg, By Mouth, 2 times a day, # 60 tablet, 0 Refills, Maintenance, 02/18/21 9:54:00 EDT, Tablet, [facility]/pharmacy #0693, 153, cm, 01/29/21 15:33:00 EST, Height, 79.6, kg, 12/30/20 13:59:00 EST, Dry Weight Start Date: 02/18/21 Status: Ordered lidocaine 1.8% topical film 1 patch, Topically, Daily, leave on up to 12 hours, # 30 each, 11 Refills, Maintenance, 02/22/20 9:39:00 EDT, Film, [facility]/pharmacy #[id number], 1 patch Topically Daily,Instr:leave on up to 12 hours, 153, cm,02/01/20 9:49:00 EDT, Height, 89.6, kg, 12/26/19 19... Start Date: 02/22/20 Status: Ordered Linzess 290 mcg oral capsule TAKE 1 CAPSULE BY MOUTH EVERY DAY Start Date: 05/07/21 Status: Ordered Bannock 0.65% nasal spray 2 sprays, Nares, Both, 4 times a day, # 1 each, 0 Refills, Maintenance, 06/23/21 9:54:00 EDT, [facility]/pharmacy #[id number], Partial fill upon patient request if the prescription is for a schedule II opioid drug., 2 sprays Nares, Both 4 times a day, 153, cm, 08/... Start Date: 06/23/21 Status: Ordered omeprazole 20 mg oral delayed release tablet 1 tablet = 20 mg, By Mouth, Daily, # 90 tablet, 0 Refills, Maintenance, 09/29/20 16:38:00 EST, EC Tablet, [facility]/pharmacy #0693, 153, cm, 08/28/20 15:44:00 EDT, Height, 89.6, kg, 12/26/19 19:50:00 EST, Dry Weight Start Date: 09/29/20 Stop Date: 12/28/20 Status: Ordered ondansetron 4 mg oral tablet 1 tablet = 4 mg, By Mouth, Every 8 hours, PRN as needed for nausea/vomiting, # 15 tablet, 0 Refills, Maintenance, 11/24/20 14:17:00 EST, Tablet, [facility], Partial fill upon patient [...] 1 Refills, Maintenance, 06/30/21 18:41:00 EDT, [facility]/pharmacy #0693, 90, INJECT 1MG INTO THE SKIN WEEKLY, 153, cm, 06/23/21 9:40:00 EDT, Height, 79.6, kg, 12/30/20 13:59:00 EST, Dry Weight Start Date: 06/30/21 Status: Ordered Paragard IUD Maintenance, 05/05/19 10:52:19 EDT, Compound Start Date: 05/05/19 Status: Ordered PEG-3350 with Electrolytes (Eqv-NuLYTELY) oral powder for reconstitution See Instructions, as directed, # 1 each, 0 Refills, Maintenance, 12/26/20 14:56:00 EST, [facility], Vt to substitute for ANY gallon prep, as [...] M79.7HEIGHT- 5' WEIGHT- 175LBS LIFETIME NEED FAX: [phone], 02/03/21 14:22:00 EDT, Supply Start Date: 02/03/21 [...] 1 Refills, Maintenance, 03/03/21 18:31:00 EDT, [facility], 153, cm, 02/28/21 11:14:00 EDT, Height, 79.6, [...] Refills, Maintenance, 02/18/21 9:54:00 EDT, Tablet, [facility]/pharmacy #0693, 153, cm, 01/29/21 15:33:00 EST, Height,79.6, kg, 12/30/20 13:59:00 EST, Dry Weight Start Date: 02/18/21 Status: Ordered zolpidem 5 mg oral tablet 1 tablet = 5 mg, By Mouth, Daily at bedtime, PRN as needed for insomnia, for 30 days, # 30 tablet, 1 Refills, Acute 07/06/21 9:17:00 EDT, 05/07/21 9:17:00 EDT, Tablet, [facility]/pharmacy #0693, Partial fill upon patient [...] Health Status Cl inical Service Informant Acute sinus infection Discharge Diagnosis 06/23/21 Vital Signs Most recent to oldest [Reference Range]: 1 Height 153 cm (06/23/21 9:40 AM) Oxygen Saturation [94-100 %] 99 % (06/23/21 9:40 AM) Pulse Rate [55-90 bpm] 79 bpm (06/23/21 9:40 AM) Blood Pressure [90-138/55-84 mm Hg] 116/ 81mm Hg (06/23/21 9:40 AM) Respiratory Rate [16-30 br/min] 20 br/mi n (06/23/21 9:40 AM) Temperature [96.8-100.4 DegF] 97.0 DegF (06/23/21 9:40 AM) Mode of Delivery (Oxygen) Room air (06/23/21 9:40 AM) Blood pressure sites Arm, left (06/23/21 9:40 AM) Temperature Route Temporal (06/23/21 9:40 AM) Social History Social History Type Response Smoking Status Never (less than 100 in lifetime);Never entered on: 03/24/21 Sex
--- OUTSIDE RECORDS SUMMARY | 2023-08-13 20:29 | XMS_ITS | Continuity of Care Document ---
Author Name Unknown Organization [facility] Address [address] [place] [address]- Care Team Providers Care Pr Internship Name Role Phone Andrew COREAS, Loreta Diaz Primary Care Physician [phone] Encounter [facility] Date(s): 12/14/22 - 01/13/23 [facility] [address] [place], [place] [address] Attending Physician: Admtr, [id number] Admitting Physician: Admtr, [...] mL, 0 Refills, Maintenance, 08/31/21 20:13:00 EDT, [facility]/pharmacy #[id number], 153, cm, 08/21/21 11:10:00 EDT, [...] 10/03/21 15:12:00 EST, Route to Pharmacy Electronically, [facility]/pharmacy #0693, 153, cm, 10/02/21 11:33:00 EST, [...] 13:59:00 EST,... Start Date: 05/14/21 Status: Ordered [facility] VITAMIN D3 25 MCG SOFTGEL TAKE [...] Refills, Maintenance, 12/10/20 17:49:00 EST, [facility], 153, cm, 12/10/20 15:22:00 EST, Height, 79.6, [...] 2 Refills, Maintenance, 10/03/21 15:17:00 EST, Nasal [place], [facility]/pharmacy #0693, Partial fill upon patient [...] Start Date: 02/03/21 Status: Ordered Espinoza lift Sepinoza lift, See Instructions, # 1 each, Refills [...] 09/03/21 13:19:00 EDT, Route to Pharmacy Electronically, [facility]/pharmacy #0693, 153, cm, 09/02/21 13:58:00 EDT, Height, 80, kg, 1... Start Date: 09/03/21 Status: Ordered ipratropium nasal 42 mcg/inh spray 2 sprays, Nares, Both, 3 times a day, # 15 mL, 11 Refills, Maintenance, 10/03/21 15:19:00 EST, [place], [facility]/pharmacy #0693, 2 sprays Nares, Both 3 times a day, 153, cm, 10/02/21 11:33:00 EST, Height, 80, kg, 09/02/21 13:29:00 EDT, Dry Weight Start Date: 10/03/21 Status: Ordered ketoconazole 2% topical shampoo 1 application, Topically, Once, # 120 mL, 1 Refills, Soft Stop, 05/07/21 8:34:00 EDT, Shampoo, [facility]/pharmacy #0693, 1 application Topically Once, 153, [...] 0 Refills, Maintenance, 10/03/21 15:14:00 EST, Capsule, [facility]/pharmacy #0693, Partial fill upon patient [...] each, 0 Refills, Maintenance, 06/23/21 9:54:00 EDT, [facility]/pharmacy #0693, Partial fill upon [...] 0 Refills, Maintenance, 10/03/21 15:20:00 EST, Tablet, [facility]/pharmacy #0693, Partial fill upon patient [...] Unknown, 1 Refills, Maintenance, 10/03/21 15:21:00 EST, [facility]/pharmacy #0693, 90, INJECT 1MG INTO THE [...] tablet, 0 Refills, Maintenance, 12/25/22 17:47:00 EST, [facility]/pharmacy #0693, Pa... Start Date: 12/25/22 Status: Ordered PEG-3350 with Electrolytes (Eqv-NuLYTELY) oral powder for reconstitution See Instructions, as directed, # 1 each, 0 Refills, Maintenance, 12/26/20 14:56:00 EST, [facility], Ok to substitute for [...] M79.7HEIGHT- 5' WEIGHT- 175LBS LIFETIME NEED FAX: [phone], 02/03/21 14:22:00 EDT, Supply Start Date: 02/03/21 [...] a day, # 360 tablet, 1 Refills, [facility], 153, cm, 08/21/21 11:10:00 EDT, Height, 79.6, [...] Refills, Maintenance, 12/19/20 11:58:00 EST, Caps[place], [facility], Partial fill upon patient request if the [...] Active 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 Hidradenitis suppurativa Confirmed Active [...] Care Nurse Name: Nevin Smith NP Position: [facility] PCO Associate Professional Member Role: Primary Care Nurse Address: Address: [address] [place] [address] [place] [address]- [place] Name: Bradly Bucio Position: [facility] RN Member Role: Primary Care Nurse Name: Elana Silver RN Position: [facility] RN Member Role: Primary Care Nurse Name: Adriana Lamar RN Position: [facility] RN Member Role: Primary Care Nurse Name: Lory Gillis RN Position: [facility] RN Member Role: Primary Care Nurse Name: Levy Buenrostro RN Position: [facility] RN Member Role: Primary Care Nurse Name: Isabela Quiroz RN Position: [facility] Outreach Member Role: Primary Care Nurse Name: Keyanna Michaels RN Position: [facility] RN Member Role: Primary Care Nurse Name: Loreta Morales NP Position: [facility] PCO Associate Professional Member Role: PCP Address: Address: [address] [place] [address]- [place] Care Team Related Persons Name: JESSICA LAUREN Address: home [address] [place] [address] Name: LAUREN ALDANA Address: home [address] [place] [address]
--- OUTSIDE RECORDS SUMMARY | 2023-08-13 20:29 | XMS_ITS | Continuity of Care Document ---
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 Phone Courtney QUACH, Joe Carrion Primary Care Physician [phone] Encounter [facility] Date(s): 08/09/20 - 09/08/20 [facility] [address] [place] [address]- [facility] Allergies, Adverse Reactions, Alerts Substance Reaction Severity [...] 5 Refills, Maintenance, 05/01/20 16:21:00 EDT, Tablet, [facility]/pharmacy #0693, 153, cm, 04/23/20 [...] mL, 11 Refills, Maintenance, 01/09/20 10:37:00 EST, [place], [facility]/pharmacy #0693, 2 sprays Nares, Both 3 times a day, 153, cm, 01/09/20 9:49:00 EST, Height, 89.6, kg, 12/26/19 19:50:00 EST, Dry Weight Start Date: 01/09/20 Status: Ordered KlonoPIN 0.5 mg oral tablet 1 tablet = 0.5 mg, By Mouth, 2 times a day, # 14 tablet, 0 Refills, Maintenance, 08/09/20 10:10:00 EDT, Tablet, [facility]/pharmacy #0693, 153, [...] Refills, Maintenance, 07/01/20 16:38:00 EDT, EC Tablet, [facility]/pharmacy #[id number], 153, cm, 04/23/20 [...]
--- OUTSIDE RECORDS SUMMARY | 2023-08-13 20:30 | XMS_ITS | Continuity of Care Document ---
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 Name Role Phone Joe Valdez MD Primary Care Physician [phone] Encounter [facility] Date(s): 03/11/21 - 03/18/21 [facility] [address] [place] [address]- Encounter Diagnosis Status migrainosus(Discharge Diagnosis) - 03/11/21 Attending Physician: Joe Valdez MD Allergies, Adverse [...] 01/29/21 15:01:00 EST, [facility], [facility] [...] Refills, Maintenance, 12/10/20 17:49:00 EST, [facility], 153, cm, 12/10/20 15:22:00 EST, Height, 79.6, [...] 0 Refills, Soft Stop, 12/13/20 11:33:00 EST, Tablet,[facility]/pharmacy #0693, Partial fill upon [...] mL, 11 Refills, Maintenance, 01/09/20 10:37:00 EST, [place], [facility]/pharmacy #0693, 2 sprays Nares, Both 3 times a day, 153, cm, 01/09/20 9:49:00 EST, Height, 89.6, kg, 12/26/19 19:50:00 EST, Dry Weight Start Date: 01/09/20 Status: Ordered KlonoPIN 0.5 mg oral tablet 1 tablet = 0.5 mg, By Mouth, 2 times a day, # 60 tablet, 0 Refills, Maintenance, 02/18/21 9:54:00 EDT, Tablet, [facility]/pharmacy #0693, 153, cm, 01/29/21 [...] Maintenance, 11/24/20 14:17:00 EST, Tablet, [facility], Partial fill upon patient [...] 0 Refills, Maintenance, 12/26/20 14:56:00 EST, [facility], Ok to substitute for ANY gallon prep, as directed, 153, cm, 12/11/20 16:00:00 EST, Height, 79.6, kg, 11/21/20 21:34:00 EST, Dry Weight Start Date: 12/26/20 Status: Ordered plecanatide 3 mg oral tablet 1 tablet = 3 mg, By Mouth, Daily, # 30 tablet, 0 Refills, Maintenance, 02/14/21 11:40:00 EDT, [facility]/pharmacy #0693, Partial fill upon [...] M79.7HEIGHT- 5' WEIGHT- 175LBS LIFETIME NEED FAX: [phone], 02/03/21 14:22:00 EDT, Supply Start Date: 02/03/21 [...] 11 Refills, Maintenance, 11/28/20 13:19:00 EST, [place], [facility]/pharmacy #0693, Partial fill upon patient request if the prescription is for a schedule II opioid drug., 153, cm, 11/28/20 12:47:00 EST, Height, 79.6, kg,... Start Date: 11/28/20 Status: Ordered topiramate 25 mg oral tablet 2 tablet, By Mouth, 2 times a day, # 360 tablet, 1 Refills, Maintenance, 03/03/21 18:31:00 EDT, [facility], 153, cm, 02/28/21 11:14:00 EDT, Height, 79.6, [...] 3 Refills, Maintenance, 12/19/20 11:58:00 EST, Capsule, [facility]/pharmacy #0693, Partial fill upon [...] 0 Refills, Maintenance, 02/18/21 9:54:00 EDT, Tablet, [facility]/pharmacy #0693, 153, cm, 01/29/21 15:33:00 EST, Height,79.6, [...] Effective Dates Health Status Clinical Service Informant Status migrainosus Discharge Diagnosis 03/11/21 Vital Signs Most recent to oldest [Reference Range]: 1 Height 153 cm (03/11/21 10:03 AM) Social History Social History Type Response Smoking Status Never smoker; Type: Cigarettes entered on: 06/28/18 Sex
--- OUTSIDE RECORDS SUMMARY | 2023-08-13 20:30 | XMS_ITS | Continuity of Care Document ---
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 Name Role Phone Courtney QUACH, Joe Carrion Primary Care Physician [phone] Encounter [facility] Date(s): 07/21/20 - 08/20/20 [facility] Adult [address] [place] [address]- [facility] Allergies, Adverse Reactions, Alerts Substance Reaction Severity Status doxycycline Active penicillin Active Other Food Allergy 1 HONEY hives Active Bactrim Active Nuts Anaphylactic reaction to food Active 1honey Immunizations Not Given Vaccine Date [...] Refills, Maintenance, 02/05/20 11:51:00 EDT, Solution, [facility]/pharmacy #0693, 153, cm, 02/01/20 9:49:00 EDT, Height, 89.6, kg, 12/26/19 19:50:00 EST, Dry Weight Start Date: 02/05/20 Status: Ordered carBAMazepine 100 mg oral tablet, extended release 200 mg, 2, tablet, By Mouth, 2 times a day, # 360 tablet, Refills 1, Tot. Refills 1, Maintenance, 07/01/20 16:38:00 EDT, Route to Pharmacy Electronically, [facility]/pharmacy #0693, 153, cm, 04/23/20 14:32:00 EDT, [...] Refills, Maintenance, 05/01/20 16:21:00 EDT, Tablet, [facility]/pharmacy #0693, 153, cm, 04/23/20 14:32:00 EDT, [...] 60 capsule, 6 Refills, Maintenance, 04/23/20 15:15:00EDT, [facility]/pharmacy #0693, 153, cm, 04/23/20 14:32:00 EDT, Height, 89.6, kg, 12/26/19 19:50:00 EST, Dry Weight Start Date: 04/23/20 Status: Ordered Emgality Prefilled Pen 120 mg/mL subcutaneous solution = 120 mg, Subcutaneous Infusion, Every 28 days, # 1 each, 11 Refills, Maintenance, 07/03/20 14:17:00 EDT, [facility]/pharmacy #0693, 1st dose broke NEEDS ANOTHER, [...] 23:30:00 EDT, Route to Pharmacy Electronically, [facility]/pharmacy #0693, 153, cm, 07/09/20 13:32:00 EDT, Height, 89.6, kg,... Start Date: 07/21/20 Status: Ordered ipratropium nasal 42 mcg/inh spray 2 sprays, Nares, Both, 3 times a day, # 15 mL, 11 Refills, Maintenance, 01/09/20 10:37:00 EST, [place], [facility]/pharmacy #0693, 2 sprays Nares, Both 3 times a day, 153, cm, 01/09/20 9:49:00 EST, Height, 89.6, kg, 12/26/19 19:50:00 EST, Dry Weight Start Date: 01/09/20 Status: Ordered KlonoPIN 0.5 mg oral tablet 1 tablet = 0.5 mg, By Mouth, 2 times a day, # 14 tablet, 0 Refills, Maintenance, 08/09/20 10:10:00 EDT, Tablet, [facility]/pharmacy #0693, 153, cm, 08/05/20 13:58:00 EDT, Height, 89.6, kg, 12/26/19 19:50:00EST, Dry Weight Start Date: 08/09/20 Stop Date: 08/16/20 Status: Ordered lidocaine 1.8% topical film 1 patch, Topically, Daily, leave on up to 12 hours, # 30 each, 11 Refills, Maintenance, 02/22/20 9:39:00 EDT, Film, [facility]/pharmacy #0693, 1 patch Topically Daily,Instr:leave on [...] Maintenance, 07/01/20 16:38:00 EDT, EC Tablet, [facility]/pharmacy #0693, 153, cm, 04/23/20 14:32:00 EDT, [...] 0 Refills, Maintenance, 07/08/20 16:23:00 EDT, Tablet, [facility]/pharmacy #0693, 153, cm, 04/23/20 14:32:00 EDT, Height, 89.6, kg, 12/26/19 19:50:00 EST, Dry Weight Start Date: 07/08/20 Status: Ordered zolpidem 5 mg oral tablet 1 tablet = 5 mg, By Mouth, Daily at bedtime, PRN as needed for insomnia, needs ov for further refills, # 7 tablet, 0 Refills, Maintenance, 06/14/20 11:30:00 EDT, Tablet, [facility]/pharmacy #0693, 153, cm, 04/23/20 14:32:00 EDT, [...]
--- OUTSIDE RECORDS SUMMARY | 2023-08-13 20:30 | XMS_ITS | Continuity of Care Document ---
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 Role Phone Polly QUACH, Estelle Charles Primary Care Physic gustavo Encounter [facility] Date(s): 12/02/21 - 01/01/22 [facility] [address] [place] [address]- Allergies, Adverse Reactions, Alerts Substance Reaction Severity [...] 0 Refills, Maintenance, 05/07/21 9:18:00 EDT, Tablet, [facility]/pharmacy #0693, Partial fill upon [...] Refills 1, Maintenance, DX: DM E11.9 Soumya Jqauez , 10/03/21 17:31:00 EST, Compound Start Date: [...] Refills, Maintenance, 12/10/20 17:49:00 EST, [facility], 153, cm, 12/10/20 15:22:00 EST, Height, 79.6, [...] 2 Refills, Maintenance, 10/03/21 15:17:00 EST, Nasal [place], [facility]/pharmacy #0693, Partial fill upon patient [...] mL, 11 Refills, Maintenance, 10/03/21 15:19:00 EST, [place], [facility]/pharmacy #0693, 2 sprays Nares, Both [...] 0 Refills, Maintenance, 12/04/21 12:17:00 EST, Tablet, [facility]/pharmacy #0693, 153, cm, 10/02/21 11:33:00 [...] EST, Supply Start Date: 10/03/21 Status: Ordered [place] 0.65% nasal spray 2 sprays, Nares, Both, [...] Refills, Maintenance, 10/03/21 15:20:00 EST, EC Tablet, [facility]/pharmacy #0693, 153, cm, 10/02/21 11:33:00 [...] each, 0 Refills, Maintenance, 12/26/20 14:56:00 EST, [facility], Ok to substitute for [...] M79.7HEIGHT- 5' WEIGHT- 175LBS LIFETIME NEED FAX: [phone], 02/03/21 14:22:00 EDT, Supply Start Date: 02/03/21 [...] 360 tablet, 1 Refills, [facility], 153, cm, 08/21/21 11:10:00 EDT, Height, 79.6, [...]
--- OUTSIDE RECORDS SUMMARY | 2023-08-13 20:30 | XMS_ITS | Continuity of Care Document ---
Author Name Unknown Organization [facility] lt Address [address] [place] [address]- Care Team Providers Care Look Out Tower Fire Watcher Name Role Phone Joe Valdez MD Primary Care Physician [place] [facility] [id number] Date(s): 04/23/20 - 04/30/20 [facility] [address] [place] [address]- [facility] Encounter Diagnosis DM (diabetes mellitus), type 2(Discharge Diagnosis) - 04/23/20 Major depression(Discharge Diagnosis) - 04/23/20 Fibromyalgia, primary holyk pain mnt/ failed lyrica/lamotrigine/naltrexone/gabapentin(Discharge Diagnosis) - 04/23/20 Asthma, moderate persistent(Discharge Diagnosis) - 04/23/20 Chronic rhinitis(Discharge Diagnosis) - 04/23/20 Hepatic steatosis(Discharge Diagnosis) - 04/23/20 Migraine(Discharge Diagnosis) - 04/23/20 Attending Physician: Joe Valdez MD Allergies, Adverse [...] cm, 01/09/20 9:49:00 EST, Height, 89.6, kg, 02/04/20 19:50:00 EST, Dry Weight Start Date: 01/09/20 Status: Ordered albuterol 0.083% inhalation solution 3 mL = 2.5 mg, Inhalation, Every 6 hours, # 120 each, 3 Refills, Maintenance, 02/05/20 11:51:00 EDT, Solution, [facility]/pharmacy #[id number], 153, cm, 02/01/20 9:49:00 EDT, Height, 89.6, kg, 12/26/19 19:50:00 EST, Dry Weight Start Date: 02/05/20 Status: Ordered carBAMazepine 100 mg oral tablet, extended release 200 mg, 2, tablet, By Mouth, 2 times a day, # 120 tablet, Refills 2, Tot. Refills 2, Maintenance, 04/11/20 10:00:00 EDT, Route to Pharmacy Electronically, [facility]/pharmacy #[id number], 153, cm, 02/01/20 9:49:00 [...] capsule, 6 Refills, Maintenance, 04/23/20 15:15:00EDT, [facility]/pharmacy #[id number], 153, cm, 04/23/20 14:32:00 EDT, Height, 89.6, kg, 12/26/19 19:50:00 EST, Dry Weight Start Date: 04/23/20 Status: Ordered Emgality Prefilled Pen 120 mg/mL subcutaneous solution = 120 mg, Subcutaneous Infusion, Every 28 days, First injection given in office, patient supplied meds. Two injections given per order one to each arm subcutaneously. Patient tolerated well. [facility] [id number] EXP 11/2020 LOT [id number] [facility] [id number]... Start Date: 06/02/19 Status: Ordered EpiPen 2-Freemna 0.3 mg injectable kit See Instructions, Intramuscular [...] 04/17/20 8:55:00 EDT, Route to Pharmacy Electronically, [facility]/pharmacy #[id number],153, cm, 02/01/20 9:49:00 EDT, Height, 89.6, kg, 0... Start Date: 04/17/20 Status: Ordered ipratropium nasal 42 mcg/inh spray 2 sprays, Nares, Both, 3 times a day, # 15 mL, 11 Refills, Maintenance, 01/09/20 10:37:00 EST, [place], [facility]/pharmacy #[id number], 2 sprays Nares, Both 3 times a day, 153, cm, 01/09/20 9:49:00 EST, Height, 89.6, kg, 12/26/19 19:50:00 EST, Dry Weight Start Date: 01/09/20 Status: Ordered KlonoPIN 0.5 mg oral tablet 1 tablet = 0.5 mg, By Mouth, 2 times a day, # 14 tablet, 0 Refills, Maintenance, 04/17/20 12:00:00 EDT, Tablet, [facility]/pharmacy #[id number], 153, cm, 02/01/20 9:49:00 EDT, Height, 89.6, kg, 12/26/19 19:50:00 EST, Dry Weight Start Date: 04/17/20 Stop Date: 04/24/20 Status: Ordered lidocaine 1.8% topical film 1 patch, Topically, Daily, leave on up to 12 hours, # 30 each, 11 Refills, Maintenance, 02/22/20 9:39:00 EDT, Film, [facility]/pharmacy #[id number], 1 patch Topically Daily,Instr:leave on up to 12 hours, 153, cm,02/01/20 9:49:00 EDT, Height, 89.6, kg, 12/26/19 19... Start Date: 02/22/20 Status: Ordered Linzess 290 mcg oral capsule 1 capsule = 290 mcg, By Mouth, Daily, needs ov for further refills, # 7 capsule, 0 Refills, Maintenance, 04/17/20 10:15:00 EDT, Capsule, [facility]/pharmacy #[id number], 153, cm, 02/01/20 9:49:00 EDT, Height, 89.6, kg, 12/26/19 19:50:00 EST, Dry Weight Start Date: 04/17/20 Stop Date: 04/24/20 Status: Ordered metFORMIN 1000 mg oral tablet [...] Refills, Maintenance, 02/22/20 8:08:00 EDT, Solution, [facility]/pharmacy #[id number], 153, cm, 02/01/20 9:49:00 [...] 2 Refills, Maintenance, 04/17/20 8:55:00 EDT, Tablet, [facility]/pharmacy #[id number], 153, cm, 02/01/20 9:49:00 EDT, Height, 89.6, kg, 12/26/19 19:50:00 EST, Dry Weight Start Date: 04/17/20 Status: Ordered zolpidem 5 mg oral tablet 1 tablet = 5 mg, By Mouth, Daily at bedtime, PRN as needed for insomnia, needs ov for further refills, # 7 tablet, 0 Refills, Maintenance, 04/17/20 12:00:00 EDT, Tablet, [facility]/pharmacy #[id number], 153, cm, 02/01/20 9:49:00 [...] DM (diabetes mellitus), type 2 Discharge Diagnosis 04/23/20 Major depression Discharge Diagnosis 04/23/20 Fibromyalgia, primary holyk pain mnt/ failed lyrica/lamotrigin e/naltrexone/[place] pentin Discharge Diagnosis 04/23/20 Asthma, moderate persistent Discharge Diagnosis 04/23/20 Chronic rhinitis Discharge Diagnosis 04/23/20 Hepatic steatosis Discharge Diagnosis 04/23/20 Migraine Discharge Diagnosis 04/23/20 Vital Signs Most recent to oldest [Reference Range]: 1 Height 153 cm (04/23/20 2:32 PM) Social History Social History Type Response Smoking Status Never smoker; Type: Cigarettes entered on: 06/28/18 Sex
--- OUTSIDE RECORDS SUMMARY | 2023-08-13 20:30 | XMS_ITS | Continuity of Care Document ---
Author Name Unknown Organization [facility] lt Address [address] [place] [address]- Care Team Providers Care Genetic Physician Name Role Phone Courtney QUACH, Joe Carrion Primary Care Physician [phone] Encounter [facility] [place] Date(s): 11/08/20 - 12/08/20 [facility] Adult [address] [place] [address]- Allergies, Adverse Reactions, Alerts Substance Reaction Severity [...] 3 Refills, Maintenance, 02/05/20 11:51:00 EDT, Solution, [facility]/pharmacy #[id number], 153, cm, 02/01/20 9:49:00 EDT, Height, 89.6, kg, 12/26/19 19:50:00 EST, Dry Weight Start Date: 02/05/20 Status: Ordered carBAMazepine 100 mg oral tablet, extended release 200 mg, 2, tablet, By Mouth, 2 times a day, # 360 tablet, Refills 1, Tot. Refills 1, Maintenance, 07/01/20 16:38:00 EDT, Route to Pharmacy Electronically, [facility]/pharmacy #[id number], 153, cm, 04/23/20 14:32:00 [...] 5 Refills, Maintenance, 11/24/20 8:47:00 EST, Tablet, [facility], 153, cm, 11/23/20 20:48:00 EST, [...] capsule, 5 Refills, Maintenance, 08/24/20 9:47:00 EDT, [facility]/pharmacy #[id number], 153, cm, 08/14/20 14:22:00 EDT, Height, 89.6, kg, 12/26/19 19:50:00 EST, Dry Weight Start Date: 08/24/20 Status: Ordered Emgality Prefilled Pen 120 mg/mL subcutaneous solution = 120 mg, Subcutaneous Infusion, Every 28 days, # 1 each, 11 Refills, Maintenance, 07/03/20 14:17:00 EDT, [facility]/pharmacy #[id number], 1st dose broke NEEDS [...] 07/21/20 23:30:00 EDT, Route to Pharmacy Electronically, [facility]/pharmacy #[id number], 153, cm, 07/09/20 13:32:00 EDT, Height, 89.6, kg,... Start Date: 07/21/20 Status: Ordered ipratropium nasal 42 mcg/inh spray 2 sprays, Nares, Both, 3 times a day, # 15 mL, 11 Refills, Maintenance, 01/09/20 10:37:00 EST, [place], [facility]/pharmacy #[id number], 2 sprays Nares, Both 3 times a day, 153, cm, 01/09/20 9:49:00 EST, Height, 89.6, kg, 12/26/19 19:50:00 EST, Dry Weight Start Date: 01/09/20 Status: Ordered KlonoPIN 0.5 mg oral tablet 1 tablet = 0.5 mg, By Mouth, 2 times a day, # 60 tablet, 0 Refills, Maintenance, 11/28/20 13:19:00 EST, Tablet, [facility]/pharmacy #[id number], 153, cm, 11/28/20 12:47:00 EST, Height, 79.6, kg, 11/21/20 21:34:00EST, Dry Weight Start Date: 11/28/20 Status: Ordered lidocaine 1.8% topical film 1 patch, Topically, Daily, leave on up to 12 hours, # 30 each, 11 Refills, Maintenance, 02/22/20 9:39:00 EDT, Film, [facility]/pharmacy #[id number], 1 patch Topically Daily,Instr:leave on up to 12 hours, 153, cm,02/01/20 9:49:00 EDT, Height, 89.6, kg, 12/26/19 19... Start Date: 02/22/20 Status: Ordered Linzess 290 mcg oral capsule 1 capsule, By Mouth, Daily, # 30 capsule, 0 Refills, Maintenance, 12/03/20 10:27:00 EST, [facility]/pharmacy #[id number], 153, cm, 11/28/20 12:47:00 EST, Height, 79.6, kg, 11/21/20 21:34:00 EST, Dry Weight Start Date: 12/03/20 Status: Ordered metFORMIN 1000 mg oral tablet 1 tablet = 1,000 mg, By Mouth, 2 times a day, new fdose Soumya Jaquez, # 180 tablet, 1 Refills, Maintenance, 10/06/20 13:46:00 EST, Tablet, [facility]/pharmacy #[id number], 153, cm, 08/28/20 15:44:00 EDT, Height, 89.6, kg, 12/26/19 19:50:00 EST, Dry Weight Start Date: 10/06/20 Status: Ordered omeprazole 20 mg oral delayed release tablet 1 tablet = 20 mg, By Mouth, Daily, # 90 tablet, 0 Refills, Maintenance, 09/29/20 16:38:00 EST, EC Tablet, [facility]/pharmacy #[id number], 153, cm, 08/28/20 15:44:00 EDT, Height, 89.6, kg, 12/26/19 19:50:00 EST, Dry Weight Start Date: 09/29/20 Stop Date: 12/28/20 Status: Ordered ondansetron 4 mg oral tablet 1 tablet = 4 mg, By Mouth, Every 8 hours, PRN as needed for nausea/vomiting, # 15 tablet, 0 Refills, Maintenance, 11/24/20 14:17:00 EST, Tablet, [facility], Partial fill upon patient request if the prescription is for a schedule II opioi... Start Date: 11/24/20 Stop Date: 11/29/20 Status: Ordered Ozempic (1 mg dose) 2 mg/1.5 mL subcutaneous solution = 1 mg, Subcutaneous Injection, Every week, # 3 mL, 11 Refills, Maintenance, 06/04/20 17:34:00 EDT,Solution, [facility]/pharmacy #[id number], 153, cm, 04/23/20 14:32:00 [...] 11 Refills, Maintenance, 11/28/20 13:19:00 EST, Aerosol, [facility]/pharmacy #[id number], Partial fill upon patient request if the prescription is for a schedule II opioid drug., 153, cm, 11/28/20 12:47:00 EST, Height, 79.6, kg,... Start Date: 11/28/20 Status: Ordered topiramate 25 mg oral tablet 2 tablet = 50 mg, By Mouth, 2 times a day, # 360 tablet, 1 Refills, Maintenance, 08/09/20 9:35:00 EDT, Tablet, [facility]/pharmacy #[id number], 153, cm, 08/05/20 13:58:00 EDT, Height, 89.6, kg, 12/26/19 19:50:00 EST, Dry Weight Start Date: 08/09/20 Status: Ordered zolpidem 5 mg oral tablet 1 tablet = 5 mg, By Mouth, Daily at bedtime, PRN as needed for insomnia, # 30 tablet, 0 Refills, Maintenance, 11/08/20 13:53:00 EST, Tablet, [facility]/pharmacy #[id number], 153, cm, 08/28/20 15:44:00 [...]
--- OUTSIDE RECORDS SUMMARY | 2023-08-13 20:30 | XMS_ITS | Continuity of Care Document ---
Author Name Unknown Organization [facility] lt Address [address] [place] [address]- Care Team Providers Care Budget Clerk Name Role Phone Not on Staff, PCP Primary Care Physician Unavail able [place] [facility] [place]s): 03/10/21 - 04/09/21 [facility] Adult [address] [place] [address]- Allergies, Adverse Reactions, Alerts Substance Reaction Severity [...] 15:01:00 EST, Route to Pharmacy Electronically, [facility]/pharmacy #[id number], 153, cm, 01/01/21 8:33:00 [...] Refills, Maintenance, 12/10/20 17:49:00 EST, [id number], 153, cm, 12/10/20 15:22:00 EST, Height, 79.6, [...] capsule, 5 Refills, Maintenance, 08/24/20 9:47:00 EDT, [facility]/pharmacy #[id number], 153, cm, 08/14/20 14:22:00 EDT, Height, 89.6, kg, 12/26/19 19:50:00 EST, Dry Weight Start Date: 08/24/20 Status: Ordered Emgality Prefilled Pen 120 mg/mL subcutaneous solution = 120 mg, Subcutaneous Infusion, Every 28 days, # 1 each, 11 Refills, Maintenance, 07/03/20 14:17:00 EDT, [facility]/pharmacy #[id number], 1st dose broke NEEDS [...] 23:30:00 EDT, Route to Pharmacy Electronically, [facility]/pharmacy #[id number], 153, cm, 07/09/20 13:32:00 EDT, Height, 89.6, kg,... Start Date: 07/21/20 Status: Ordered ipratropium nasal 42 mcg/inh spray 2 sprays, Nares, Both, 3 times a day, # 15 mL, 11 Refills, Maintenance, 01/09/20 10:37:00 EST, [place], [facility]/pharmacy #[id number], 2 sprays Nares, Both 3 times a day, 153, cm, 01/09/20 9:49:00 EST, Height, 89.6, kg, 12/26/19 19:50:00 EST, Dry Weight Start Date: 01/09/20 Status: Ordered KlonoPIN 0.5 mg oral tablet 1 tablet = 0.5 mg, By Mouth, 2 times a day, # 60 tablet, 0 Refills, Maintenance, 02/18/21 9:54:00 EDT, Tablet, [facility]/pharmacy #[id number], 153, cm, 01/29/21 15:33:00 EST, Height, 79.6, kg, 12/30/20 13:59:00 EST, Dry Weight Start Date: 02/18/21 Status: Ordered lidocaine 1.8% topical film 1 patch, Topically, Daily, leave on up to 12 hours, # 30 each, 11 Refills, Maintenance, 02/22/20 9:39:00 EDT, Film, [facility]/pharmacy #[id number], 1 patch Topically Daily,Instr:leave on up to 12 hours, 153, cm,02/01/20 9:49:00 EDT, Height, 89.6, kg, 12/26/19 19... Start Date: 02/22/20 Status: Ordered metFORMIN 1000 mg oral tablet 1 tablet = 1,000 mg, By Mouth, 2 times a day, new fdose Soumya Jaquez, # 180 tablet, 1 Refills, Maintenance, 10/06/20 13:46:00 EST, Tablet, [facility]/pharmacy #[id number], 153, cm, 08/28/20 15:44:00 EDT, Height, 89.6, kg, 12/26/19 19:50:00 EST, Dry Weight Start Date: 10/06/20 Status: Ordered MiraLax oral powder for reconstitution = 17 Gm, By Mouth, Daily, for 14 days, dissolve in water before taking, # 238 Gm, 0 Refills, Acute 04/10/21 16:14:00 EDT, 03/27/21 16:14:00 EDT, REC Powder, [facility]/pharmacy #[id number], Partial fill upon patient request if the prescription is for a schedule II... Start Date: 03/27/21 Stop Date: 04/10/21 Status: Ordered omeprazole 20 mg oral delayed release tablet 1 tablet = 20 mg, By Mouth, Daily, # 90 tablet, 0 Refills, Maintenance, 09/29/20 16:38:00 EST, EC Tablet, [facility]/pharmacy #[id number], 153, cm, 08/28/20 15:44:00 EDT, Height, 89.6, kg, 12/26/19 19:50:00 EST, Dry Weight Start Date: 09/29/20 Stop Date: 12/28/20 Status: Ordered ondansetron 4 mg oral tablet 1 tablet = 4 mg, By Mouth, Every 8 hours, PRN as needed for nausea/vomiting, # 15 tablet, 0 Refills, Maintenance, 11/24/20 14:17:00 EST, Tablet, [facility], Partial fill upon patient request if the prescription is for a schedule II opioi... Start Date: 11/24/20 Stop Date: 11/29/20 Status: Ordered Ozempic (1 mg dose) 2 mg/1.5 mL subcutaneous solution = 1 mg, Subcutaneous Injection, Every week, # 3 mL, 11 Refills, Maintenance, 06/04/20 17:34:00 EDT,Solution, [facility]/pharmacy #[id number], 153, cm, 04/23/20 14:32:00 EDT, Height, 89.6, kg, 12/26/19 19:50:00 EST, Dry Weight Start Date: 06/04/20 Status: Ordered Paragard IUD Maintenance, 05/05/19 10:52:19 EDT, Compound Start Date: 05/05/19 Status: Ordered PEG-3350 with Electrolytes (Eqv-NuLYTELY) oral powder for reconstitution See Instructions, as directed, # 1 each, 0 Refills, Maintenance, 12/26/20 14:56:00 EST, [id number], Ok to substitute for ANY gallon prep, as directed, 153, cm, 12/11/20 16:00:00 EST, Height, 79.6, kg, 11/21/20 21:34:00 EST, Dry Weight Start Date: 12/26/20 Status: Ordered plecanatide 3 mg oral tablet 1 tablet = 3 mg, By Mouth, Daily, # 30 tablet, 0 Refills, Maintenance, 02/14/21 11:40:00 EDT, [facility]/pharmacy #[id number], Partial fill upon patient [...] M79.7HEIGHT- 5' WEIGHT- 175LBS LIFETIME NEED FAX: [phone], 02/03/21 14:22:00 EDT, Supply Start Date: 02/03/21 [...] 03/27/21 16:14:00 EDT, Route to Pharmacy Electronically, [facility]/pharmacy #[id number] Tablet, Partial fill upon [...] Refills, Maintenance, 11/28/20 13:19:00 EST, Aeros[place], [facility]/pharmacy #[id number], Partial fill upon patient request if the prescription is for a schedule II opioid drug., 153, cm, 11/28/20 12:47:00 EST, Height, 79.6, kg,... Start Date: 11/28/20 Status: Ordered topiramate 25 mg oral tablet 2 tablet, By Mouth, 2 times a day, # 360 tablet, 1 Refills, Maintenance, 03/03/21 18:31:00 EDT, [facility], 153, cm, 02/28/21 11:14:00 EDT, Height, 79.6, kg, 12/30/20 13:59:00 EST, Dry Weight Start Date: 03/03/21 Status: Ordered topiramate 25 mg oral tablet 2 tablet = 50 mg, By Mouth, 2 times a day, # 360 tablet, 1 Refills, Maintenance, 08/09/20 9:35:00 EDT, Tablet, [facility]/pharmacy #[id number], 153, cm, 08/05/20 13:58:00 [...] Refills, Maintenance, 12/19/20 11:58:00 EST, Capsule, [facility]/pharmacy #[id number], Partial fill upon patient [...] Refills, Maintenance, 02/18/21 9:54:00 EDT, Tablet, [facility]/pharmacy #[id number], 153, cm, 01/29/21 15:33:00 [...]
--- OUTSIDE RECORDS SUMMARY | 2023-08-13 20:30 | XMS_ITS | Continuity of Care Document ---
Author Name Unknown Organization [facility] Address [address] [place] [address]- Care Team Providers Care Whipper Beater Name Role Phone Anupama COREAS, Len Thomas Primary Care Physician [phone] Encounter [facility] [place] Date(s): 05/14/21 - 05/21/21 [facility] [address] [place] [address]- Encounter Diagnosis DM (diabetes mellitus), type 2(Discharge Diagnosis) - 05/15/21 Migraine(Discharge Diagnosis) - 05/15/21 Attending Physician: Len Altman NP Allergies, Adverse Reactions, [...] Refills, Maintenance, 02/05/20 11:51:00 EDT, Solution, [facility]/pharmacy #[id number], 153, cm, 02/01/20 9:49:00 EDT, Height, [...] 15:01:00 EST, Route to Pharmacy Electronically, [facility]/pharmacy #[id number], 153, cm, 01/01/21 8:33:00 EST, Height, [...] Refills, Maintenance, 05/07/21 9:18:00 EDT, Tablet, [facility]/pharmacy #[id number], Partial fill upon patient request if [...] EST,... Start Date: 05/14/21 Status: Ordered [facility] VITAMIN D3 25 MCG SOFTGEL TAKE 1 [...] Refills, Maintenance, 12/10/20 17:49:00 EST, [facility], 153, cm, 12/10/20 15:22:00 EST, Height, 79.6, [...] 23:30:00 EDT, Route to Pharmacy Electronically, [facility]/pharmacy #[id number], 153, cm, 07/09/20 13:32:00 EDT, Height, 89.6, kg,... Start Date: 07/21/20 Status: Ordered ipratropium nasal 42 mcg/inh spray 2 sprays, Nares, Both, 3 times a day, # 15 mL, 11 Refills, Maintenance, 01/09/20 10:37:00 EST, [place], [facility]/pharmacy #[id number], 2 sprays Nares, Both 3 times a day, 153, cm, 01/09/20 9:49:00 EST, Height, 89.6, kg, 12/26/19 19:50:00 EST, Dry Weight Start Date: 01/09/20 Status: Ordered ketoconazole 2% topical shampoo 1 application, Topically, Once, # 120 mL, 1 Refills, Soft Stop, 05/07/21 8:34:00 EDT, Shampoo, [facility]/pharmacy #[id number], 1 application Topically Once, 153, cm, 05/07/21 7:55:00 EDT, Height, 79.6, kg, 12/30/20 13:59:00 EST, Dry Weight Start Date: 05/07/21 Status: Ordered KlonoPIN 0.5 mg oral tablet 1 tablet = 0.5 mg, By Mouth, 2 times a day, # 60 tablet, 0 Refills, Maintenance, 02/18/21 9:54:00 EDT, Tablet, [facility]/pharmacy #[id number], 153, cm, 01/29/21 15:33:00 EST, Height, 79.6, kg, 12/30/20 13:59:00 EST, Dry Weight Start Date: 02/18/21 Status: Ordered lidocaine 1.8% topical film 1 patch, Topically, Daily, leave on up to 12 hours, # 30 each, 11 Refills, Maintenance, 02/22/20 9:39:00 EDT, Film, [facility]/pharmacy #[id number], 1 patch Topically Daily,Instr:leave on up [...] Maintenance, 09/29/20 16:38:00 EST, EC Tablet, [facility]/pharmacy #[id number], 153, cm, 08/28/20 15:44:00 EDT, Height, 89.6, kg, 12/26/19 19:50:00 EST, Dry Weight Start Date: 09/29/20 Stop Date: 12/28/20 Status: Ordered ondansetron 4 mg oral tablet 1 tablet = 4 mg, By Mouth, Every 8 hours, PRN as needed for nausea/vomiting, # 15 tablet, 0 Refills, Maintenance, 11/24/20 14:17:00 EST, Tablet, [facility], Partial fill upon patient request [...] 11 Refills, Maintenance, 06/04/20 17:34:00 EDT,Solution, [facility]/pharmacy #[id number], 153, cm, 04/23/20 14:32:00 EDT, Height, 89.6, kg, 12/26/19 19:50:00 EST, Dry Weight Start Date: 06/04/20 Status: Ordered Paragard IUD Maintenance, 05/05/19 10:52:19 EDT, Compound Start Date: 05/05/19 Status: Ordered PEG-3350 with Electrolytes (Eqv-NuLYTELY) oral powder for reconstitution See Instructions, as directed, # 1 each, 0 Refills, Maintenance, 12/26/20 14:56:00 EST, [facility], Ok to substitute for ANY gallon prep, as directed, 153, cm, 12/11/20 16:00:00 EST, Height, 79.6, kg, 11/21/20 21:34:00 EST, Dry Weight Start Date: 12/26/20 Status: Ordered plecanatide 3 mg oral tablet 1 tablet = 3 mg, By Mouth, Daily, # 30 tablet, 0 Refills, Maintenance, 02/14/21 11:40:00 EDT, [facility]/pharmacy #[id number], Partial fill upon patient request if [...] M79.7HEIGHT- 5' WEIGHT- 175LBS LIFETIME NEED FAX: [phone], 02/03/21 14:22:00 EDT, Supply Start Date: 02/03/21 [...] Refills, Maintenance, 11/28/20 13:19:00 EST, Aerosol, [facility]/pharmacy #[id number], Partial fill upon patient request if the prescription is for a schedule II opioid drug., 153, cm, 11/28/20 12:47:00 EST, Height, 79.6, kg,... Start Date: 11/28/20 Status: Ordered topiramate 25 mg oral tablet 2 tablet, By Mouth, 2 times a day, # 360 tablet, 1 Refills, Maintenance, 03/03/21 18:31:00 EDT, [facility], 153, cm, 02/28/21 11:14:00 EDT, Height, 79.6, [...] DM (diabetes mellitus), type 2 Discharge Diagnosis 05/15/21 Migraine Discharge Diagnosis 05/15/21 Vital Signs Most recent to oldest [Reference Range]: 1 Height 153 cm (05/14/21 12:43 PM) Social History Social History Type Response Smoking Status Never (less than 100 in lifetime);Never entered on: 03/24/21 Sex
--- OUTSIDE RECORDS SUMMARY | 2023-08-13 20:30 | XMS_ITS | Continuity of Care Document ---
Author Name Unknown Organization [facility] Julian lt Address [address] [place] [address]- Care Team Providers Care Relief Docking Master Name Role Phone Joe Valdez MD Primary Care Physician [phone] Encounter [facility] Date(s): 01/09/20 - 02/22/20 [facility] Adult [address] [place] [address]- [facility] Encounter Diagnosis Bipolar disease, chronic(Discharge Diagnosis) - 01/21/20 Major depression(Discharge Diagnosis) - 01/21/20 Fibromyalgia, primary holyk pain mnt/ failed lyrica/lamotrigine/naltrexone/gabapentin(Discharge Diagnosis) - 01/21/20 Asthma, moderate persistent(Discharge Diagnosis) - 01/21/20 Attending Physician: Joe Valdez MD Allergies, Adverse [...] 3 Refills, Maintenance, 02/05/20 11:51:00 EDT, Solution, [facility]/pharmacy #[id number], 153, cm, 02/01/20 9:49:00 EDT, Height, 89.6, kg, 12/26/19 19:50:00 EST, Dry Weight Start Date: 02/05/20 Status: Ordered carBAMazepine 100 mg oral tablet, extended release 200 mg, 2, tablet, By Mouth, 2 times a day, # 120 tablet, Refills 2, Tot. Refills 2, Maintenance, 01/18/20 17:04:00 EST, Route to Pharmacy Electronically, [facility]/pharmacy #[id number], 153, cm, 01/09/20 9:49:00 [...] 0 Refills, Maintenance, 01/01/20 14:51:00 EST, Tablet, [facility]/pharmacy #[id number], 153, cm, 12/28/19 7:42:00 [...] to each arm subcutaneously. Patient tolerated well. [facility] [id number] EXP 11/2020 LOT [id number] [facility] [id number]... Start Date: 06/02/19 Status: Ordered EpiPen 2-Freeman [...] 10/13/19 7:45:01 EST, Route to Pharmacy Electronically, [id number], [facility]/pharmacy #[id number] Start Date: 10/13/19 Status: Ordered ipratropium nasal 42 mcg/inh spray 2 sprays, Nares, Both, 3 times a day, # 15 mL, 11 Refills, Maintenance, 01/09/20 10:37:00 EST, [place], [facility]/pharmacy #0693, 2 sprays Nares, Both 3 times a day, 153, cm, 01/09/20 9:49:00 EST, Height, 89.6, kg, 12/26/19 19:50:00 EST, Dry Weight Start Date: 01/09/20 Status: Ordered KlonoPIN 0.5 mg oral tablet 1 tablet = 0.5 mg, By Mouth, 2 times a day, # 24 tablet, 0 Refills, Maintenance, 02/21/20 16:50:00 EDT, Tablet, [facility]/pharmacy #0693, 153, cm, 02/01/20 9:49:00 [...] 0 Refills, Maintenance, 01/01/20 14:50:00 EST, Capsule, [facility]/pharmacy #0693, 153, cm, 12/28/19 7:42:00 [...] 1 Refills, Maintenance, 02/22/20 8:08:00 EDT, Solution, [facility]/pharmacy #0693, 153, cm, 02/01/20 9:49:00 [...] 0 Refills, Maintenance, 02/22/20 9:41:00 EDT, Tablet, [facility]/pharmacy #0693, 153, cm, 02/01/20 9:49:00 [...] Service Informant Bipolar disease, chronic Discharge Diagnosis 01/21/20 Major depression Discharge Diagnosis 01/21/20 Fibromyalgia, primary holyk pain mnt/ failed lyrica/lamotrigin e/naltrexone/[place] pentin Discharge Diagnosis 01/21/20 Asthma, moderate persistent Discharge Diagnosis 01/21/20 Social History Social History Type Response Smoking Status Never smoker; Type: Cigarettes entered on: 06/28/18 Sex
--- OUTSIDE RECORDS SUMMARY | 2023-08-13 20:30 | XMS_ITS | Continuity of Care Document ---
Author Name Unknown Organization [facility] Jarrett Julian lt Address [address] [place] [address]- Care Team Providers Care Tensile Tester Name Role Phone Courtney QUACH, Joe Carrion Primary Care Physician Encounter [facility] Date(s): 06/04/20 - 07/04/20 [facility] Adult [address] [place] [address]- [facility] Allergies, Adverse Reactions, Alerts Substance Reaction [...] 16:38:00 EDT, Route to Pharmacy Electronically, [facility]/pharmacy #[id number], 153, cm, 04/23/20 14:32:00 EDT, Height, [...] Refills, Maintenance, 05/01/20 16:21:00 EDT, Tablet, [facility]/pharmacy #0693, 153, cm, 04/23/20 14:32:00 EDT, Height, [...] capsule, 6 Refills, Maintenance, 04/23/20 15:15:00EDT, [facility]/pharmacy #0693, 153, cm, 04/23/20 14:32:00 EDT, Height, 89.6, kg, 12/26/19 19:50:00 EST, Dry Weight Start Date: 04/23/20 Status: Ordered Emgality Prefilled Pen 120 mg/mL subcutaneous solution = 120 mg, Subcutaneous Infusion, Every 28 days, # 1 each, 11 Refills, Maintenance, 07/03/20 14:17:00 EDT, [facility]/pharmacy #[id number], 1st dose broke NEEDS ANOTHER, 153, [...] 06/25/20 17:13:00 EDT, Route to Pharmacy Electronically, [facility]/pharmacy #0693, 153, cm, 04/23/20 14:32:00 EDT, Height, 89.6, kg,... Start Date: 06/25/20 Status: Ordered ipratropium nasal 42 mcg/inh spray 2 sprays, Nares, Both, 3 times a day, # 15 mL, 11 Refills, Maintenance, 01/09/20 10:37:00 EST, [place], [facility]/pharmacy #0693, 2 sprays Nares, Both 3 times a day, 153, cm, 01/09/20 9:49:00 EST, Height, 89.6, kg, 12/26/19 19:50:00 EST, Dry Weight Start Date: 01/09/20 Status: Ordered KlonoPIN 0.5 mg oral tablet 1 tablet = 0.5 mg, By Mouth, 2 times a day, # 14 tablet, 0 Refills, Maintenance, 04/17/20 12:00:00 EDT, Tablet, [facility]/pharmacy #0693, 153, cm, 02/01/20 9:49:00 EDT, Height, 89.6, kg, 12/26/19 19:50:00 EST, Dry Weight Start Date: 04/17/20 Stop Date: 04/24/20 Status: Ordered lidocaine 1.8% topical film 1 patch, Topically, Daily, leave on up to 12 hours, # 30 each, 11 Refills, Maintenance, 02/22/20 9:39:00 EDT, Film, [facility]/pharmacy #0693, 1 patch Topically Daily,Instr:leave on up to 12 hours, 153, cm,02/01/20 9:49:00 EDT, Height, 89.6, kg, 12/26/19 19... Start Date: 02/22/20 Status: Ordered Linzess 290 mcg oral capsule 1 capsule, By Mouth, Daily, # 30 capsule, 0 Refills, Maintenance, 06/25/20 17:13:00 EDT, [facility]/pharmacy #0693, 153, cm, 04/23/20 14:32:00 EDT, Height, 89.6, kg, 12/26/19 19:50:00 EST, Dry Weight Start Date: 06/25/20 Status: Ordered metFORMIN 1000 mg oral tablet 1 tablet = 1,000 mg, By Mouth, 2 times a day, new fdose Soumyamarcos Jaquez, # 180 tablet, 3 Refills, Maintenance, 09/15/19 8:25:51 EDT, Tablet Start Date: 09/15/19 Status: Ordered omeprazole 20 mg oral delayed release tablet 1 tablet = 20 mg, By Mouth, Daily, # 90 tablet, 0 Refills, Maintenance, 07/01/20 16:38:00 EDT, EC Tablet, [facility]/pharmacy #[id number], 153, cm, 04/23/20 14:32:00 EDT, Height, [...] 1 Refills, Maintenance, 06/04/20 7:22:00 EDT, Tablet, [facility]/pharmacy #0693, 153, cm, 04/23/20 14:32:00 EDT, Height, 89.6, kg, 12/26/19 19:50:00 EST, Dry Weight Start Date: 06/04/20 Status: Ordered zolpidem 5 mg oral tablet 1 tablet = 5 mg, By Mouth, Daily at bedtime, PRN as needed for insomnia, needs ov for further refills, # 7 tablet, 0 Refills, Maintenance, 06/14/20 11:30:00 EDT, Tablet, [facility]/pharmacy #0693, 153, cm, 04/23/20 14:32:00 EDT, Height, [...]
--- OUTSIDE RECORDS SUMMARY | 2023-08-13 20:30 | XMS_ITS | Continuity of Care Document ---
Author Name Unknown Organization [facility] Address [address] [place] [address]- Care Team Providers Care Patient Service Coordinator Name Role Phone Polly QUACH, Estelle Charles Primary Care Physic gustavo [place] [facility] [place](s[place] 09/03/21 - 10/10/21 [facility] [address] [place] [address]- Attending Physician: Polly QUACH, Estelle Charles Allergies, [...] mL, 0 Refills, Maintenance, 08/31/21 20:13:00 EDT, [facility]/pharmacy #[id number], 153, cm, 08/21/21 11:10:00 [...] 10/03/21 15:12:00 EST, Route to Pharmacy Electronically, [facility]/pharmacy #[id number], 153, cm, 10/02/21 11:33:00 EST, [...] 0 Refills, Maintenance, 05/07/21 9:18:00 EDT, Tablet, [facility]/pharmacy #[id number], Partial fill upon patient [...] 13:59:00 EST,... Start Date: 05/14/21 Status: Ordered [facility] VITAMIN D3 25 MCG SOFTGEL [...] Refills, Maintenance, 12/10/20 17:49:00 EST, [id number], 153, cm, 12/10/20 15:22:00 EST, Height, 79.6, [...] 2 Refills, Maintenance, 10/03/21 15:17:00 EST, [place], [facility], Partial fill upon patient request [...] 09/03/21 13:19:00 EDT, Route to Pharmacy Electronically, [facility]/pharmacy #[id number], 153, cm, 09/02/21 13:58:00 EDT, Height, 80, kg, 1... Start Date: 09/03/21 Status: Ordered ipratropium nasal 42 mcg/inh spray 2 sprays, Nares, Both, 3 times a day, # 15 mL, 11 Refills, Maintenance, 10/03/21 15:19:00 EST, [place], [facility]/pharmacy #[id number], 2 sprays Nares, Both 3 times a day, 153, cm, 10/02/21 11:33:00 EST, Height, 80, kg, 09/02/21 13:29:00 EDT, Dry Weight Start Date: 10/03/21 Status: Ordered ketoconazole 2% topical shampoo 1 application, Topically, Once, # 120 mL, 1 Refills, Soft Stop, 05/07/21 8:34:00 EDT, Shampoo, [facility]/pharmacy #[id number], 1 application Topically Once, 153, cm, 05/07/21 7:55:00 EDT, Height, 79.6, kg, 12/30/20 13:59:00 EST, Dry Weight Start Date: 05/07/21 Status: Ordered KlonoPIN 0.5 mg oral tablet 1 tablet = 0.5 mg, By Mouth, 2 times a day, # 56 tablet, 0 Refills, Maintenance, 09/03/21 9:37:00 EDT, Tablet, [facility]/pharmacy #[id number], 153, cm, 09/02/21 13:58:00 EDT, Height, 80, kg, 09/02/21 13:29:00 EDT, Dry Weight Start Date: 09/03/21 Stop Date: 10/01/21 Status: Ordered lidocaine 1.8% topical film 1 patch, Topically, Daily, leave on up to 12 hours, # 30 each, 11 Refills, Maintenance, 02/22/20 9:39:00 EDT, Film, [facility]/pharmacy #[id number], 1 patch Topically Daily,Instr:leave on up to 12 hours, 153, cm,02/01/20 9:49:00 EDT, Height, 89.6, kg, 12/26/19 19... Start Date: 02/22/20 Status: Ordered Linzess 290 mcg oral capsule 1 capsule = 290 mcg, By Mouth, Daily, TAKE 1 CAPSULE BY MOUTH EVERY DAY, # 90 capsule, 0 Refills, Maintenance, 10/03/21 15:14:00 EST, Capsule, [facility]/pharmacy #[id number], Partial fill upon patient [...] EST, Supply Start Date: 10/03/21 Status: Ordered [place] 0.65% nasal spray 2 sprays, Nares, Both, 4 times a day, # 1 each, 0 Refills, Maintenance, 06/23/21 9:54:00 EDT, [facility]/pharmacy #[id number], Partial fill upon patient request if the prescription is for a schedule II opioid drug., 2 sprays Nares, Both 4 times a day, 153, cm, ... Start Date: 06/23/21 Status: Ordered omeprazole 20 mg oral delayed release tablet 1 tablet = 20 mg, By Mouth, Daily, # 90 tablet, 0 Refills, Maintenance, 10/03/21 15:20:00 EST, EC Tablet, [facility]/pharmacy #[id number], 153, cm, 10/02/21 11:33:00 EST, Height, 80, kg, 09/02/21 13:29:00 EDT, Dry Weight Start Date: 10/03/21 Stop Date: 01/01/22 Status: Ordered ondansetron 4 mg oral tablet 1 tablet = 4 mg, By Mouth, Every 8 hours, PRN as needed for nausea/vomiting, # 15 tablet, 0 Refills, Maintenance, 10/03/21 15:20:00 EST, Tablet, [facility]/pharmacy #[id number], Partial fill upon patient [...] Unknown, 1 Refills, Maintenance, 10/03/21 15:21:00 EST, [facility]/pharmacy #[id number], 90, INJECT 1MG INTO THE SKIN WEEKLY, 153, cm, 10/02/21 11:33:00 EST,Height, 80, kg, 09/02/21 13:29:00 EDT, Dry Weight Start Date: 10/03/21 Status: Ordered Paragard IUD Maintenance, 05/05/19 10:52:19 EDT, Compound Start Date: 05/05/19 Status: Ordered PEG-3350 with Electrolytes (Eqv-NuLYTELY) oral powder for reconstitution See Instructions, as directed, # 1 each, 0 Refills, Maintenance, 12/26/20 14:56:00 EST, [facility], Ok to substitute [...] M79.7HEIGHT- 5' WEIGHT- 175LBS LIFETIME NEED FAX: [phone], 02/03/21 14:22:00 EDT, Supply Start Date: 02/03/21 [...] 11 Refills, Maintenance, 11/28/20 13:19:00 EST, Aerosol, [facility]/pharmacy #[id number], Partial fill upon patient request if the prescription is for a schedule II opioid drug., 153, cm, 11/28/20 12:47:00 EST, Height, 79.6, kg,... Start Date: 11/28/20 Status: Ordered topiramate 25 mg oral tablet 2 tablet, By Mouth, 2 times a day, # 360 tablet, 1 Refills, [facility], 153, cm, 08/21/21 11:10:00 EDT, Height, 79.6, [...]
--- OUTSIDE RECORDS SUMMARY | 2023-08-13 20:30 | XMS_ITS | Continuity of Care Document ---
Author Name Unknown Organization [facility] Address [address] [place] [address]- Care Team Providers Care Terminal Computer Operator Name Role Phone Courtney QUACH, Joe Carrion Primary Care Physician [place] [facility] 11/10/19 - 11/20/19 [facility] [address] [place] [address]- [facility] Attending Physician: Francisco Bourgeois Admitting [...] 0, Maintenance, DX: DM E11.9 Soumya Jaquez [phone] ATTN: SANDIP, 08/22/19 16:18:20 EDT, Compound Start [...] to each arm subcutaneously. Patient tolerated well. [facility] [id number] EXP 11/2020 LOT [id number] [facility] [id number]... Start Date: 06/02/19 Status: Ordered EpiPen 2-Freeman [...] 10/13/19 7:45:01 EST, Route to Pharmacy Electronically, [id number], [facility]/pharmacy #[id number] Start Date: 10/13/19 Status: Ordered KlonoPIN 0.5 [...] Start Date: 05/05/19 Status: Ordered nystatin topical 503707 u/gm powder 1 applicator, Topically, 3 times [...] 05/11/19 15:23:38 EDT, Route to Pharmacy Electronically, [id number], [facility]/pharmacy #[id number] Start Date: 05/11/19 Status: Ordered Tylenol 325 mg oral tablet 650 mg, By Mouth, Every 6 hours, PRN, Refills 0, Maintenance, Pain , Mild, 03/21/19 15:00:53 EDT Start Date: 03/21/19 Status: Ordered Venlafaxine By Mouth, 0 Refills, Maintenance, 05/11/19 15:23:09 EDT Start Date: 05/11/19 Status: Ordered Vitamin D 41829 iu oral capsule 50,000 International_Units, 1, capsule, [...]
--- OUTSIDE RECORDS SUMMARY | 2023-08-13 20:30 | XMS_ITS | Continuity of Care Document ---
Author Name Unknown Organization [facility] Adult Address [address] [place] [address]- Care Team Providers Care Fruit Loader Name Role Phone Andrew COREAS, Loreta Diaz Primary Care Physician [phone] [place] [facility]18[place]22 [place] 12/25/22 [facility] Adult [address] [place] [address]- Encounter Diagnosis Medication management(Discharge Diagnosis) - 12/18/22 Depression, major, severe recurrence(Discharge Diagnosis) - 12/18/22 Attending Physician: Not on Staff, Attending MD [...] mL, 0 Refills, Maintenance, 08/31/21 20:13:00 EDT, [facility]/pharmacy #[id number], 153, cm, 08/21/21 11:10:00 [...] 10/03/21 15:12:00 EST, Route to Pharmacy Electronically, [facility]/pharmacy #[id number], 153, cm, 10/02/21 11:33:00 [...] 13:59:00 EST,... Start Date: 05/14/21 Status: Ordered [facility] VITAMIN D3 25 MCG SOFTGEL [...] Refills, Maintenance, 12/10/20 17:49:00 EST, [facility], 153, cm, 12/10/20 15:22:00 EST, Height, 79.6, [...] 2 Refills, Maintenance, 10/03/21 15:17:00 EST, [place], [facility], Partial fill upon patient request if the [...] 09/03/21 13:19:00 EDT, Route to Pharmacy Electronically, [facility]/pharmacy #[id number], 153, cm, 09/02/21 13:58:00 EDT, Height, 80, kg, 1... Start Date: 09/03/21 Status: Ordered ipratropium nasal 42 mcg/inh spray 2 sprays, Nares, Both, 3 times a day, # 15 mL, 11 Refills, Maintenance, 10/03/21 15:19:00 EST, [place], [facility]/pharmacy #0693, 2 sprays Nares, Both 3 times a day, 153, cm, 10/02/21 11:33:00 EST, Height, 80, kg, 09/02/21 13:29:00 EDT, Dry Weight Start Date: 10/03/21 Status: Ordered ketoconazole 2% topical shampoo 1 application, Topically, Once, # 120 mL, 1 Refills, Soft Stop, 05/07/21 8:34:00 EDT, Shampoo, [facility]/pharmacy #0693, 1 application Topically Once, 153, cm, 05/07/21 7:55:00 EDT, Height, 79.6, kg, 12/30/20 13:59:00 EST, Dry Weight Start Date: 05/07/21 Status: Ordered lidocaine 1.8% topical film 1 patch, Topically, Daily, leave on up to 12 hours, # 30 each, 11 Refills, Maintenance, 02/22/20 9:39:00 EDT, Film, [facility]/pharmacy #0693, 1 patch Topically Daily,Instr:leave on up to 12 hours, 153, cm,02/01/20 9:49:00 EDT, Height, 89.6, kg, 12/26/19 19... Start Date: 02/22/20 Status: Ordered Linzess 290 mcg oral capsule 1 capsule = 290 mcg, By Mouth, Daily, TAKE 1 CAPSULE BY MOUTH EVERY DAY, # 90 capsule, 0 Refills, Maintenance, 10/03/21 15:14:00 EST, Caps[place], [facility]/pharmacy #0693, Partial fill upon patient [...] EST, Supply Start Date: 10/03/21 Status: Ordered [place] 0.65% nasal spray 2 sprays, Nares, [...] 0 Refills, Maintenance, 10/03/21 15:20:00 EST, Tablet, [facility]/pharmacy #0693, Partial fill upon patient [...] Unknown, 1 Refills, Maintenance, 10/03/21 15:21:00 EST, [facility]/pharmacy #0693, 90, INJECT 1MG INTO [...] tablet, 0 Refills, Maintenance, 12/25/22 17:47:00 EST, [facility]/pharmacy #0693, Pa... Start Date: 12/25/22 Status: [...] M79.7HEIGHT- 5' WEIGHT- 175LBS LIFETIME NEED FAX: [phone], 02/03/21 14:22:00 EDT, Supply Start Date: 02/03/21 [...] 11 Refills, Maintenance, 11/28/20 13:19:00 EST, [place], [facility]/pharmacy #0693, Partial fill upon patient request if the prescription is for a schedule II opioid drug., 153, cm, 11/28/20 12:47:00 EST, Height, 79.6, kg,... 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 Hidradenitis suppurativa Confirmed Active [...] Effective Dates Health Status Clinical Service Informant Medication management Discharge Diagnosis 12/18/22 Depression, major, severe recurrence Discharge Diagnosis 12/18/22 Vital Signs Most recent to oldest [Reference Range]: 1 Height 153 cm (12/18/22 8:28 AM) Weight Obtained Via Standing scale (12/18/22 8:28 AM) Social History Social History Type Response Smoking Status Never (less than 100 in lifetime);Never entered on: 03/24/21 Sex Patient Care team information Care Team Personnel Name: Kathy Mendoza RN Position: [facility] RN Member Role: Primary Care Nurse Name: Nevin Smith NP Position: [facility] Associate Professional Member Role: Primary Care Nurse Address: Address: [address] [place] [address] [place] [address]- Name: Bradly Bucio Position: S RN Member Role: Primary Care Nurse Name: Elana Silver RN Position: [facility] RN Member Role: Primary Care Nurse Name: Adriana Lamar RN Position: [facility] RN Member Role: Primary Care Nurse Name: Lory Gillis RN Position: [facility] RN Member Role: Primary Care Nurse Name: Levy Buenrostro RN Position: [facility] RN Member Role: Primary Care Nurse Name: Isabela Quiroz RN Position: [facility] Outreach Member Role: Primary Care Nurse Name: Keyanna Michaels RN Position: [facility] RN Member Role: Primary Care Nurse Name: Loreta Morales NP [facility] Associate Professional Member Role: PCP Address: Address: [address] [place] [address]- Care Team Related Persons Name: JESSICA LAUREN Address: home [address] [place] [address] Name: LAUREN ALDANA Address: home [address] [place] [address]
--- OUTSIDE RECORDS SUMMARY | 2023-08-13 20:30 | XMS_ITS | Continuity of Care Document ---
Author Name Unknown Organization [facility] lt Address [address] [place] [address]- Care Team Providers Care Filter Helper Name Role Phone Courtney QUACH, Joe Carrion Primary Care Physician Encounter [facility] [place] Date(s): 03/01/20 - 03/11/20 [facility] Adult [address] [place] [address]- [facility] Attending Physician: Admtr, Ar8 Admitting Physician: Admtr, Ar8 Referring Physician: Admtr, Ar8 Allergies, Adverse Reactions, Alerts Substance Reaction Severity Status doxycycline Active penicillin Active Nuts Anaphylactic reaction to food Active Other Food Allergy 1 HONEY hives Active Bactrim Active 1honey Immunizations Not Given Vaccine Date [...] 01/18/20 17:04:00 EST, Route to Pharmacy Electronically, [facility]/pharmacy #[id number], 153, cm, 01/09/20 9:49:00 EST, Height, [...] 0 Refills, Maintenance, 01/01/20 14:51:00 EST, Tablet, [facility]/pharmacy #0693, 153, cm, 12/28/19 7:42:00 EST, Height, [...] to each arm subcutaneously. Patient tolerated well. [facility] [id number] EXP 11/2020 LOT [id number] [facility] [id number]... Start Date: 06/02/19 Status: Ordered EpiPen 2-Freeman [...] 10/13/19 7:45:01 EST, Route to Pharmacy Electronically, [id number], [facility]/pharmacy #[id number] Start Date: 10/13/19 Status: Ordered ipratropium nasal 42 mcg/inh spray 2 sprays, Nares, Both, 3 times a day, # 15 mL, 11 Refills, Maintenance, 01/09/20 10:37:00 EST, [place], [facility]/pharmacy #0693, 2 sprays Nares, Both 3 times a day, 153, cm, 01/09/20 9:49:00 EST, Height, 89.6, kg, 12/26/19 19:50:00 EST, Dry Weight Start Date: 01/09/20 Status: Ordered KlonoPIN 0.5 mg oral tablet 1 tablet = 0.5 mg, By Mouth, 2 times a day, # 24 tablet, 0 Refills, Maintenance, 02/21/20 16:50:00 EDT, Tablet, [facility]/pharmacy #0693, 153, cm, 02/01/20 9:49:00 EDT, Height, [...] 0 Refills, Maintenance, 01/01/20 14:50:00 EST, Capsule, [facility]/pharmacy #0693, 153, cm, 12/28/19 7:42:00 EST, Height, [...] 1 Refills, Maintenance, 02/22/20 8:08:00 EDT, Solution, [facility]/pharmacy #0693, 153, cm, 02/01/20 9:49:00 EDT, Height, [...] 0 Refills, Maintenance, 02/22/20 9:41:00 EDT, Tablet, [facility]/pharmacy #0693, 153, cm, 02/01/20 9:49:00 EDT, Height, [...]
--- OUTSIDE RECORDS SUMMARY | 2023-08-13 20:30 | XMS_ITS | Continuity of Care Document ---
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 Name Role Phone Courtney QUACH, Joe Carrion Primary Care Physician Encounter [facility] [place] Date(s): 11/25/20 - 12/25/20 [facility] Adult [address] [place] [address]- Allergies, Adverse Reactions, Alerts Substance Reaction Severity [...] [id number], cm, 04/23/20 14:32:00 EDT, Height, [...] capsule, 5 Refills, Maintenance, 12/10/20 17:49:00 EST, [id number], 153, cm, 12/10/20 15:22:00 EST, Height, 79.6, [...] capsule, 5 Refills, Maintenance, 08/24/20 9:47:00 EDT, [facility]/pharmacy #[id number], 153, cm, 08/14/20 14:22:00 EDT, Height, 89.6, kg, 12/26/19 19:50:00 EST, Dry Weight Start Date: 08/24/20 Status: Ordered Emgality Prefilled Pen 120 mg/mL subcutaneous solution = 120 mg, Subcutaneous Infusion, Every 28 days, # 1 each, 11 Refills, Maintenance, 07/03/20 14:17:00 EDT, [facility]/pharmacy #[id number], 1st dose broke [...] 07/21/20 23:30:00 EDT, Route to Pharmacy Electronically, [facility]/pharmacy #[id number], 153, cm, 07/09/20 13:32:00 EDT, Height, 89.6, kg,... Start Date: 07/21/20 Status: Ordered ipratropium nasal 42 mcg/inh spray 2 sprays, Nares, Both, 3 times a day, # 15 mL, 11 Refills, Maintenance, 01/09/20 10:37:00 EST, [place], [facility]/pharmacy #[id number], 2 sprays Nares, Both 3 times a day, 153, cm, 01/09/20 9:49:00 EST, Height, 89.6, kg, 12/26/19 19:50:00 EST, Dry Weight Start Date: 01/09/20 Status: Ordered KlonoPIN 0.5 mg oral tablet 1 tablet = 0.5 mg, By Mouth, 2 times a day, # 60 tablet, 0 Refills, Maintenance, 11/28/20 13:19:00 EST, Tablet, [facility]/pharmacy #[id number], 153, cm, 11/28/20 12:47:00 EST, [...] Refills, Maintenance, 09/29/20 16:38:00 EST, EC Tablet, [facility]/pharmacy #[id number], 153, cm, 08/28/20 15:44:00 EDT, Height, 89.6, kg, 12/26/19 19:50:00 EST, Dry Weight Start Date: 09/29/20 Stop Date: 12/28/20 Status: Ordered ondansetron 4 mg oral tablet 1 tablet = 4 mg, By Mouth, Every 8 hours, PRN as needed for nausea/vomiting, # 15 tablet, 0 Refills, Maintenance, 11/24/20 14:17:00 EST, Tablet, [facility], Partial fill upon patient request if the prescription is for a schedule II opioi... Start Date: 11/24/20 Stop Date: 11/29/20 Status: Ordered Ozempic (1 mg dose) 2 mg/1.5 mL subcutaneous solution = 1 mg, Subcutaneous Injection, Every week, # 3 mL, 11 Refills, Maintenance, 06/04/20 17:34:00 EDT,Solution, [facility]/pharmacy #[id number], 153, cm, 04/23/20 [...] 11 Refills, Maintenance, 11/28/20 13:19:00 EST, Aerosol, [facility]/pharmacy #[id number], Partial fill upon [...]
--- OUTSIDE RECORDS SUMMARY | 2023-08-13 20:30 | XMS_ITS | Continuity of Care Document ---
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 [place] Date(s): 04/07/21 - 05/07/21 [facility] Adult [address] [place] [address]- Attending Physician: Admtr, Ar8 Admitting Physician: Admtr, Ar8 Referring Physician: Admtr, Ar8 Allergies, Adverse Reactions, Alerts Substance Reaction Severity Status doxycycline Active penicillin 1 Active gabapentin Active Nuts Anaphylactic reaction to food Active Lyrica Active Bactrim Active Other Food Allergy 2 [...] 15:01:00 EST, Route to Pharmacy Electronically, [facility]/pharmacy #[id number], 153, cm, 01/01/21 8:33:00 [...] Refills, Maintenance, 05/07/21 9:18:00 EDT, Tablet, [facility]/pharmacy #[id number], Partial fill upon patient request if the prescription is for a schedule II opioid drug., 153, cm, 05/07/21 7:55:00 EDT,... Start Date: 05/07/21 Status: Ordered [facility] VITAMIN D3 25 MCG SOFTGEL [...] Refills, Maintenance, 12/10/20 17:49:00 EST, [facility], 153, cm, 12/10/20 15:22:00 EST, Height, 79.6, [...] 23:30:00 EDT, Route to Pharmacy Electronically, [facility]/pharmacy #[id number], 153, cm, 07/09/20 13:32:00 EDT, Height, 89.6, kg,... Start Date: 07/21/20 Status: Ordered ipratropium nasal 42 mcg/inh spray 2 sprays, Nares, Both, 3 times a day, # 15 mL, 11 Refills, Maintenance, 01/09/20 10:37:00 EST, [place], [facility]/pharmacy #[id number], 2 sprays Nares, Both 3 times a day, 153, cm, 01/09/20 9:49:00 EST, Height, 89.6, kg, 12/26/19 19:50:00 EST, Dry Weight Start Date: 01/09/20 Status: Ordered ketoconazole 2% topical shampoo 1 application, Topically, Once, # 120 mL, 1 Refills, Soft Stop, 05/07/21 8:34:00 EDT, Shampoo, [facility]/pharmacy #[id number], 1 application Topically Once, 153, cm, 05/07/21 7:55:00 EDT, Height, 79.6, kg, 12/30/20 13:59:00 EST, Dry Weight Start Date: 05/07/21 Status: Ordered KlonoPIN 0.5 mg oral tablet 1 tablet = 0.5 mg, By Mouth, 2 times a day, # 60 tablet, 0 Refills, Maintenance, 02/18/21 9:54:00 EDT, Tablet, [facility]/pharmacy #[id number], 153, cm, 01/29/21 15:33:00 EST, Height, 79.6, kg, 12/30/20 13:59:00 EST, Dry Weight Start Date: 02/18/21 Status: Ordered lidocaine 1.8% topical film 1 patch, Topically, Daily, leave on up to 12 hours, # 30 each, 11 Refills, Maintenance, 02/22/20 9:39:00 EDT, Film, [facility]/pharmacy #[id number], 1 patch Topically Daily,Instr:leave [...] Maintenance, 09/29/20 16:38:00 EST, EC Tablet, [facility]/pharmacy #[id number], 153, cm, 08/28/20 15:44:00 EDT, Height, 89.6, kg, 12/26/19 19:50:00 EST, Dry Weight Start Date: 09/29/20 Stop Date: 12/28/20 Status: Ordered ondansetron 4 mg oral tablet 1 tablet = 4 mg, By Mouth, Every 8 hours, PRN as needed for nausea/vomiting, # 15 tablet, 0 Refills, Maintenance, 11/24/20 14:17:00 EST, Tablet, [facility], Partial fill upon patient request if [...] 11 Refills, Maintenance, 06/04/20 17:34:00 EDT,Solution, [facility]/pharmacy #[id number], 153, cm, 04/23/20 14:32:00 EDT, Height, 89.6, kg, 12/26/19 19:50:00 EST, Dry Weight Start Date: 06/04/20 Status: Ordered Paragard IUD Maintenance, 05/05/19 10:52:19 EDT, Compound Start Date: 05/05/19 Status: Ordered PEG-3350 with Electrolytes (Eqv-NuLYTELY) oral powder for reconstitution See Instructions, as directed, # 1 each, 0 Refills, Maintenance, 12/26/20 14:56:00 EST, [facility], Ok to substitute for ANY gallon prep, as directed, 153, cm, 12/11/20 16:00:00 EST, Height, 79.6, kg, 11/21/20 21:34:00 EST, Dry Weight Start Date: 12/26/20 Status: Ordered plecanatide 3 mg oral tablet 1 tablet = 3 mg, By Mouth, Daily, # 30 tablet, 0 Refills, Maintenance, 02/14/21 11:40:00 EDT, [facility]/pharmacy #[id number], Partial fill upon patient [...] M79.7HEIGHT- 5' WEIGHT- 175LBS LIFETIME NEED FAX: [phone], 02/03/21 14:22:00 EDT, Supply Start Date: 02/03/21 [...] Refills, Maintenance, 11/28/20 13:19:00 EST, Aerosol, [facility]/pharmacy #[id number], Partial fill upon patient request if the prescription is for a schedule II opioid drug., 153, cm, 11/28/20 12:47:00 EST, Height, 79.6, kg,... Start Date: 11/28/20 Status: Ordered topiramate 25 mg oral tablet 2 tablet, By Mouth, 2 times a day, # 360 tablet, 1 Refills, Maintenance, 03/03/21 18:31:00 EDT, [id number], [facility], cm, 02/28/21 11:14:00 EDT, Height, 79.6, [...]
--- OUTSIDE RECORDS SUMMARY | 2023-08-13 20:30 | XMS_ITS | Continuity of Care Document ---
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 Role Phone Anupama COREAS, Len Thomas Primary Care Physician Encounter [facility] Date(s): 06/09/21 - 07/09/21 [facility] [address] [place] [address]- Allergies, Adverse Reactions, Alerts Substance Reaction Severity [...] 3 Refills, Maintenance, 02/05/20 11:51:00 EDT, Solution, [facility]/pharmacy #[id number], 153, [...] Refills, Soft Stop, 06/24/21 13:18:00 EDT, Tablet, [facility]/pharmacy #0693, Partial fill upon patient [...] 01/29/21 15:01:00 EST, Route to Pharmacy Electronically, [facility]/pharmacy #[id number], 153, cm, 01/01/21 8:33:00 [...] 0 Refills, Maintenance, 05/07/21 9:18:00 EDT, Tablet, [facility]/pharmacy #0693, Partial fill upon patient [...] capsule, 5 Refills, Maintenance, 12/10/20 17:49:00 EST, [facility], 153, cm, 12/10/20 15:22:00 EST, Height, 79.6, [...] capsule, 1 Refills, Maintenance, 06/07/21 14:13:00 EDT, [facility], 153, cm, 05/14/21 12:43:00 EDT, Height, 79.6, kg, 12/30/20 13:59:00 EST, Dry Weight Start Date: 06/07/21 Status: Ordered Emgality Prefilled Pen 120 mg/mL subcutaneous solution = 120 mg, Subcutaneous Infusion, Every 28 days, # 1 each, 11 Refills, Maintenance, 07/03/20 14:17:00 EDT, [facility]/pharmacy #[id number], 1st dose broke NEEDS [...] 07/21/20 23:30:00 EDT, Route to Pharmacy Electronically, [facility]/pharmacy #[id number], 153, cm, 07/09/20 13:32:00 EDT, Height, 89.6, kg,... Start Date: 07/21/20 Status: Ordered ipratropium nasal 42 mcg/inh spray 2 sprays, Nares, Both, 3 times a day, # 15 mL, 11 Refills, Maintenance, 01/09/20 10:37:00 EST, [place], [facility]/pharmacy #[id number], 2 sprays Nares, Both 3 times a day, 153, cm, 01/09/20 9:49:00 EST, Height, 89.6, kg, 12/26/19 19:50:00 EST, Dry Weight Start Date: 01/09/20 Status: Ordered ketoconazole 2% topical shampoo 1 application, Topically, Once, # 120 mL, 1 Refills, Soft Stop, 05/07/21 8:34:00 EDT, Shampoo, [facility]/pharmacy #[id number], 1 application Topically Once, 153, cm, 05/07/21 7:55:00 EDT, Height, 79.6, kg, 12/30/20 13:59:00 EST, Dry Weight Start Date: 05/07/21 Status: Ordered KlonoPIN 0.5 mg oral tablet 1 tablet = 0.5 mg, By Mouth, 2 times a day, # 60 tablet, 0 Refills, Maintenance, 07/01/21 15:21:00 EDT, Tablet, [facility]/pharmacy #[id number], 153, cm, 06/23/21 9:40:00 EDT, [...] EVERY DAY Start Date: 05/07/21 Status: Ordered [place] 0.65% nasal spray 2 sprays, Nares, Both, 4 times a day, # 1 each, 0 Refills, Maintenance, 06/23/21 9:54:00 EDT, [facility]/pharmacy #[id number], Partial fill upon patient request if the prescription is for a schedule II opioid drug., 2 sprays Nares, Both 4 times a day, 153, cm, ... Start Date: 06/23/21 Status: Ordered omeprazole 20 mg oral delayed release tablet 1 tablet = 20 mg, By Mouth, Daily, # 90 tablet, 0 Refills, Maintenance, 09/29/20 16:38:00 EST, EC Tablet, [facility]/pharmacy #[id number], 153, cm, 08/28/20 15:44:00 EDT, Height, 89.6, kg, 12/26/19 19:50:00 EST, Dry Weight Start Date: 09/29/20 Stop Date: 12/28/20 Status: Ordered ondansetron 4 mg oral tablet 1 tablet = 4 mg, By Mouth, Every 8 hours, PRN as needed for nausea/vomiting, # 15 tablet, 0 Refills, Maintenance, 11/24/20 14:17:00 EST, Tablet, [facility], Partial fill upon patient [...] Unknown, 1 Refills, Maintenance, 06/30/21 18:41:00 EDT, [facility]/pharmacy #[id number], 90, INJECT 1MG INTO THE SKIN WEEKLY, 153, cm, 06/23/21 9:40:00 EDT, Height, 79.6, kg, 12/30/20 13:59:00 EST, Dry Weight Start Date: 06/30/21 Status: Ordered Paragard IUD Maintenance, 05/05/19 10:52:19 EDT, Compound Start Date: 05/05/19 Status: Ordered PEG-3350 with Electrolytes (Eqv-NuLYTELY) oral powder for reconstitution See Instructions, as directed, # 1 each, 0 Refills, Maintenance, 12/26/20 14:56:00 EST, [facility] [place] to substitute for ANY gallon prep, as directed, 153, cm, 12/11/20 16:00:00 EST, Height, 79.6, kg, 11/21/20 21:34:00 EST, Dry Weight Start Date: 12/26/20 Status: Ordered plecanatide 3 mg oral tablet 1 tablet = 3 mg, By Mouth, Daily, # 30 tablet, 0 Refills, Maintenance, 02/14/21 11:40:00 EDT, [facility]/pharmacy #[id number], Partial fill upon patient [...] M79.7HEIGHT- 5' WEIGHT- 175LBS LIFETIME NEED FAX: [phone], 02/03/21 14:22:00 EDT, Supply Start Date: 02/03/21 [...] 11 Refills, Maintenance, 11/28/20 13:19:00 EST, Aerosol, [facility]/pharmacy #1177, Partial fill upon patient request if the prescription is for a schedule II opioid drug., 153, cm, 11/28/20 12:47:00 EST, Height, 79.6, kg,... Start Date: 11/28/20 Status: Ordered topiramate 25 mg oral tablet 2 tablet, By Mouth, 2 times a day, # 360 tablet, 1 Refills, Maintenance, 03/03/21 18:31:00 EDT, [facility], 153, cm, 02/28/21 11:14:00 EDT, Height, 79.6, kg, 12/30/20 13:59:00 EST, Dry Weight Start Date: 03/03/21 Status: Ordered topiramate 25 mg oral tablet 2 tablet = 50 mg, By Mouth, 2 times a day, # 360 tablet, 1 Refills, Maintenance, 08/09/20 9:35:00 EDT, Tablet, [facility]/pharmacy #[id number], 153, cm, 08/05/20 13:58:00 EDT, [...] 3 Refills, Maintenance, 12/19/20 11:58:00 EST, Capsule, [facility]/pharmacy #[id number], Partial fill upon patient [...]
--- OUTSIDE RECORDS SUMMARY | 2023-08-13 20:30 | XMS_ITS | Continuity of Care Document ---
Author Name Unknown Organization [facility] Address [address] [place] [address]- Care Team Providers Care Evp Marketing Name Role Phone Polly QUACH, Estelle Charles Primary Care Physic gustavo Encounter [facility] [place] Date(s): 10/02/21 - 11/01/21 [facility] [address] [place] [address]- Attending Physician: AdmFrancisco jeffery Admitting Physician: Admtr, Ar8 Referring Physician: Admtr, [...] 10/03/21 15:12:00 EST, Route to Pharmacy Electronically, [facility]/pharmacy #[id number], 153, cm, 10/02/21 11:33:00 EST, [...] 0 Refills, Maintenance, 05/07/21 9:18:00 EDT, Tablet, [facility]/pharmacy #[id number], Partial fill upon patient request [...] 13:59:00 EST,... Start Date: 05/14/21 Status: Ordered [facility] VITAMIN D3 25 MCG SOFTGEL TAKE [...] LARGE PT USES 6 PER DAY DX: BAILEEYALGI M79.7 HEIGHT- 5' WEIGHT- 175LBS LIFETIME NEED dx n39.46 Soumya Jaquez, 10/03/21 17:44:00 EST, Soumya Quinone... Start Date: 10/03/21 Status: Ordered docusate sodium 100 mg oral capsule 1 capsule, By Mouth, 2 times a day, PRN NEEDED FOR CONSTIPATION, # 60 capsule, 5 Refills, Maintenance, 12/10/20 17:49:00 EST, [facility], 153, cm, 12/10/20 15:22:00 EST, Height, 79.6, [...] 2 Refills, Maintenance, 10/03/21 15:17:00 EST, [place], Partial fill upon patient request [...] 09/03/21 13:19:00 EDT, Route to Pharmacy Electronically, [facility]/pharmacy #[id number], 153, cm, 09/02/21 13:58:00 EDT, Height, 80, kg, 1... Start Date: 09/03/21 Status: Ordered ipratropium nasal 42 mcg/inh spray 2 sprays, Nares, Both, 3 times a day, # 15 mL, 11 Refills, Maintenance, 10/03/21 15:19:00 EST, [place], [facility]/pharmacy #0693, 2 sprays Nares, Both 3 times a day, 153, cm, 10/02/21 11:33:00 EST, Height, 80, kg, 09/02/21 13:29:00 EDT, Dry Weight Start Date: 10/03/21 Status: Ordered ketoconazole 2% topical shampoo 1 application, Topically, Once, # 120 mL, 1 Refills, Soft Stop, 05/07/21 8:34:00 EDT, Shampoo, [facility]/pharmacy #0693, 1 application Topically Once, 153, cm, 05/07/21 7:55:00 EDT, Height, 79.6, kg, 12/30/20 13:59:00 EST, Dry Weight Start Date: 05/07/21 Status: Ordered KlonoPIN 0.5 mg oral tablet 1 tablet = 0.5 mg, By Mouth, 2 times a day, # 56 tablet, 0 Refills, Maintenance, 09/03/21 9:37:00 EDT, Tablet, [facility]/pharmacy #0693, 153, cm, 09/02/21 13:58:00 EDT, [...] 0 Refills, Maintenance, 10/03/21 15:14:00 EST, Capsule, [facility]/pharmacy #0693, Partial fill upon patient request [...] EST, Supply Start Date: 10/03/21 Status: Ordered [place] 0.65% nasal spray 2 sprays, Nares, Both, 4 times a day, # 1 each, 0 Refills, Maintenance, 06/23/21 9:54:00 EDT, [facility]/pharmacy #0693, Partial fill upon patient request if the prescription is for a schedule II opioid drug., 2 sprays Nares, Both 4 times a day, 153, cm, ... Start Date: 06/23/21 Status: Ordered omeprazole 20 mg oral delayed release tablet 1 tablet = 20 mg, By Mouth, Daily, # 90 tablet, 0 Refills, Maintenance, 10/03/21 15:20:00 EST, EC Tablet, [facility]/pharmacy #[id number], 153, cm, 10/02/21 11:33:00 EST, Height, 80, kg, 09/02/21 13:29:00 EDT, Dry Weight Start Date: 10/03/21 Stop Date: 01/01/22 Status: Ordered ondansetron 4 mg oral tablet 1 tablet = 4 mg, By Mouth, Every 8 hours, PRN as needed for nausea/vomiting, # 15 tablet, 0 Refills, Maintenance, 10/03/21 15:20:00 EST, Tablet, [facility]/pharmacy #0693, Partial fill upon patient request [...] Unknown, 1 Refills, Maintenance, 10/03/21 15:21:00 EST, [facility]/pharmacy #0693, 90, INJECT 1MG INTO THE SKIN WEEKLY, 153, cm, 10/02/21 11:33:00 EST,Height, 80, kg, 09/02/21 13:29:00 EDT, Dry Weight Start Date: 10/03/21 Status: Ordered Paragard IUD Maintenance, 05/05/19 10:52:19 EDT, Compound Start Date: 05/05/19 Status: Ordered PEG-3350 with Electrolytes (Eqv-NuLYTELY) oral powder for reconstitution See Instructions, as directed, # 1 each, 0 Refills, Maintenance, 12/26/20 14:56:00 EST, [facility], Ok to substitute for [...] M79.7HEIGHT- 5' WEIGHT- 175LBS LIFETIME NEED FAX: [phone], 02/03/21 14:22:00 EDT, Supply Start Date: 02/03/21 [...] # 360 tablet, 1 Refills, [facility], 153, cm, 08/21/21 11:10:00 EDT, Height, 79.6, [...]
--- OUTSIDE RECORDS SUMMARY | 2023-08-13 20:30 | XMS_ITS | Continuity of Care Document ---
Author Name Unknown Organization [facility] (formerly [facility] Adult Address [address] [place] [address]- Care Team Providers Care Medical Sales Specialist Name Role Phone Andrew COREAS, Loreta Diaz Primary Care Physician [phone] Encounter [facility] Date(s): 11/26/22 - 12/03/22 [facility] ([facility] Adult [address] [place] [address]- Encounter Diagnosis Bipolar disease, chronic(Discharge Diagnosis) - 11/26/22 Depression, major, severe recurrence(Discharge Diagnosis) - 11/26/22 Abdominal pain(Discharge Diagnosis) - 11/26/22 Attending Physician: Not on Staff, Attending MD Allergies, Adverse Reactions, Alerts Substance Reaction Severity Status doxycycline Active penicillin 1 Active Bactrim Active Lyrica Active gabapentin Active Nuts Anaphylactic reaction to [...] WEIGHT- 175LBS LIFETIME NEED dx n39.46 Soumya Murphys, 10/03/21 17:44:00 EST, Soumya Quinone... Start Date: 10/03/21 Status: Ordered docusate sodium 100 mg oral capsule 1 capsule, By Mouth, 2 times a day, PRN NEEDED FOR CONSTIPATION, # 60 capsule, 5 Refills, Maintenance, 12/10/20 17:49:00 EST, [id number], 153, cm, 12/10/20 15:22:00 EST, Height, 79.6, [...] 2 Refills, Maintenance, 10/03/21 15:17:00 EST, Nasal [place], [facility]/pharmacy #[id number], Partial fill upon patient request if the [...] mL, 11 Refills, Maintenance, 10/03/21 15:19:00 EST, [place], [facility]/pharmacy #[id number], 2 sprays Nares, [...] EST, Supply Start Date: 10/03/21 Status: Ordered [place] 0.65% nasal spray 2 sprays, Nares, Both, [...] each, 0 Refills, Maintenance, 12/26/20 14:56:00 EST, [facility], [place] to substitute for ANY gallon prep, as [...] M79.7HEIGHT- 5' WEIGHT- 175LBS LIFETIME NEED FAX: [phone], 02/03/21 14:22:00 EDT, Supply Start Date: 02/03/21 [...] tablet, 1 Refills, [id number], 153, cm, 08/21/21 11:10:00 EDT, Height, 79.6, [...] Service Informant Bipolar disease, chronic Discharge Diagnosis 11/26/22 Depression, major, severe recurrence Discharge Diagnosis 11/26/22 Abdominal pain Discharge Diagnosis 11/26/22 Vital Signs Most recent to oldest [Reference Range]: 1 Height 153 cm (11/26/22 10:25 AM) Oxygen Saturation [94-100 %] 98 % (11/26/22 10:25 AM) Pulse Rate [55-90 bpm] 99 bpm *H* (11/26/22 10:25 AM) Blood Pressure [90-138/55-84 mm Hg] 113/ 74mm Hg (11/26/22 10:25 AM) Temperature [96.8-100.4 DegF] 97.6 DegF (11/26/22 10:25 AM) Mode of Delivery (Oxygen) Room air (11/26/22 10:25 AM) Blood pressure sites Arm, left (11/26/22 10:25 AM) Temperature Route Temporal (11/26/22 10:25 AM) Weight Obtained Via Standing scale (11/26/22 10:25 AM) Social History Social History Type Response Smoking Status Never (less than 100 in lifetime);Never entered on: 03/24/21 Sex Note * Noemi Maciel: PERFORM, SIGN, VERIFY Event Display: Patient Education/Instruction Authored Date: [id number] [facility] *[facility] Clinical Summary Name VINEET SANTIAGO Age 42 Years 1980 PCP Andrew COREAS, Loreta Diaz PCP Visit Date 11/26/2022 10:23:00 Additional Instructions: Scheduled Appointments?? Future Appointments ?*[facility] ?[address]??[place],??[address] ?Phone:??--?Fax:??-- ?Appt. Date:??12/01/2022?11:40 AM ?Scheduled Provider:??Loreta Morales NP ?*[facility]??Pre[facility] ?[address]??[facility] [place] ?Phone:??--?Fax:??-- ?Appt. Date:??12/14/2022?2:30 PM ?Scheduled Provider:??Hunter Platt NP Follow-Up Instructions ?? Diagnosis Major depressive disorder, recurrent severe without psychotic features; Unspecified abdominal pain;Bipolar disorder, unspecified Medications: Please continue your medications until treatment [...] Next Dose: Durable Medical Equipment (Bedpads) DX: FIBROMPEOPLES HOSPITALMERLIN M79.7 HEIGHT- 5' WEIGHT- 175LBS LIFETIME NEED . Refills: 11. Next Dose: Durable Medical Equipment (Compression Stockings) surgical, thigh high length 20-30 mm Hg Dx. varicose veins, bilateral leg pain. Refills: 2. Next Dose: Durable Medical Equipment (Diapers) LARGE PT USES 6 PER DAY DX: FIBROMYALMERLIN M79.7 HEIGHT- 5' WEIGHT- 175LBS LIFETIME NEED [...] Dose: Durable Medical Equipment (Gloves) LARGE DX: FIBROMDONTRELLGI M79.7 HEIGHT- 5' WEIGHT- 175LBS [...] Medical Equipment (PNEUMATIC PUMP AND SLEEVE) DX: FIBROMYALGI M79.7 HEIGHT- 5' WEIGHT- 175LBS LIFETIME NEED . Refills: 0. Next Dose: Durable Medical Equipment (RECLINER) DX: FIBROMYALGI M79.7 HEIGHT- 5' WEIGHT- 175LBS LIFETIME NEED FAX: [phone]. Refills: 0. Next Dose: Durable Medical Equipment [...] Dose: Miscellaneous Rx (READY BATH WIPES) DX: FIBROMYALGI M79.7 HEIGHT- 5' WEIGHT- 175LBS LIFETIME NEED . Refills: 11. Next Dose: Miscellaneous Rx (see below) Walker Injured hip.. Refills: 0. Next Dose: Miscellaneous Rx (SMALL COMRESSION GLOVES) DX: Fibromyalgia Soumya Jaquez. Refills: 0. Next Dose: Miscellaneous Rx (WIPES) DX: FIBROMYALGI M79.7 HEIGHT- 5' WEIGHT- 175LBS [...] Oral Daily. Next Dose: Sodium Chloride Nasal ([place] 0.65% nasal spray) 2 spray(s) Nares, Both [...] doxycycline Medications Given This Visit Future Orders ?Lipase? Order Date:11/26/22?- Complete on or after?11/26/22 ?Amylase? Order Date:11/26/22?- Complete on or after?11/26/22 ?Microalbumin Urine? Order Date:11/26/22?- Complete on or after?11/26/22 Vital Signs Height 153 cm Weight BMI Blood Pressure 113 mm Hg/74 mm Hg Temperature 97.6 DegF Pulse Rate 99 bpm Respiratory Rate 02 Sat Mode of Delivery 98 %/Room air You can now view a summary of your hospital visit from the comfort of your home through a free online portal called [employer]. [employer] is a website that allows you to securely view your medical information including discharge summary, medications and follow-up visits. ??You can alsosend a secure electronic message to your doctor???s office to request appointments, renew medications or just ask a question. You can enroll at [email or web address] or register during your next office visit. [...] primary care provider, you may find a [facility] provider by calling [facility] [employer] at [phone]. For information about the plan of care [...] Name: Kathy Mendoza RN Position: [facility] RN Member Role: Primary Care Nurse Name: Nevin Smith NP Position: [facility] Associate Professional Member Role: Primary Care Nurse Address: Address: [address] [place] [address] [place] [address]- Name: Bradly Bucio Position: [facility] RN Member Role: Primary Care Nurse Name: Elana Silver RN Position: [facility] RN Member Role: Primary Care Nurse Name: Adriana Lamar RN Position: [facility] RN Member Role: Primary Care Nurse Name: Lory Gillis RN Position: [facility] RN Member Role: Primary Care Nurse Name: Levy Buenrostro RN Position: [facility] RN Member Role: Primary Care Nurse Name: Isabela Quiroz RN Position: [facility] Outreach Member Role: Primary Care Nurse Name: Keyanna Michaels RN Position: [facility] RN Member Role: Primary Care Nurse Name: Loreta Morales NP Position: [facility] PCO Associate Professional Member Role: PCP Address: Address: [address] [place] [address] [address] [place] [address]- [place] Care Team Related Persons Name: JESSICA LAUREN Address: home [address] [place] [address] Name: LAUREN ALDANA Address: home [address] [place] [address]
--- OUTSIDE RECORDS SUMMARY | 2023-08-13 20:31 | XMS_ITS | Continuity of Care Document ---
Author Name Unknown Organization [facility] Address [address] [place] [address]- Care Team Providers Care Computer Systems Security Administrator Name Role Phone Andrew COREAS, Loreta Diaz Primary Care Physician Encounter [place] Date(s): 12/25/22 - 01/24/23 [facility] [address], [place] [address] Attending Physician: Admtr, [id number] Admitting Physician: Admtr, [...] mL, 0 Refills, Maintenance, 08/31/21 20:13:00 EDT, [facility]/pharmacy #[id number], 153, cm, 08/21/21 11:10:00 [...] 10/03/21 15:12:00 EST, Route to Pharmacy Electronically, [facility]/pharmacy #[id number], 153, cm, 10/02/21 11:33:00 [...] 13:59:00 EST,... Start Date: 05/14/21 Status: Ordered [facility] VITAMIN D3 25 MCG SOFTGEL [...] Refills, Maintenance, 12/10/20 17:49:00 EST, [id number], 153, cm, 12/10/20 15:22:00 EST, Height, 79.6, [...] 2 Refills, Maintenance, 10/03/21 15:17:00 EST, Nasal [place], [facility]/pharmacy #[id number], Partial fill upon patient [...] 09/03/21 13:19:00 EDT, Route to Pharmacy Electronically, [facility]/pharmacy #[id number], 153, cm, 09/02/21 13:58:00 EDT, Height, 80, kg, 1... Start Date: 09/03/21 Status: Ordered ipratropium nasal 42 mcg/inh spray 2 sprays, Nares, Both, 3 times a day, # 15 mL, 11 Refills, Maintenance, 10/03/21 15:19:00 EST, [place], [facility]/pharmacy #[id number], 2 sprays Nares, Both 3 times a day, 153, cm, 10/02/21 11:33:00 EST, Height, 80, kg, 09/02/21 13:29:00 EDT, Dry Weight Start Date: 10/03/21 Status: Ordered ketoconazole 2% topical shampoo 1 application, Topically, Once, # 120 mL, 1 Refills, Soft Stop, 05/07/21 8:34:00 EDT, Shampoo, [facility]/pharmacy #[id number], 1 application Topically Once, 153, cm, 05/07/21 7:55:00 EDT, Height, 79.6, kg, 12/30/20 13:59:00 EST, Dry Weight Start Date: 05/07/21 Status: Ordered lidocaine 1.8% topical film 1 patch, Topically, Daily, leave on up to 12 hours, # 30 each, 11 Refills, Maintenance, 02/22/20 9:39:00 EDT, Film, [facility]/pharmacy #[id number], 1 patch Topically Daily,Instr:leave on up to 12 hours, 153, cm,02/01/20 9:49:00 EDT, Height, 89.6, kg, 12/26/19 19... Start Date: 02/22/20 Status: Ordered Linzess 290 mcg oral capsule 1 capsule = 290 mcg, By Mouth, Daily, TAKE 1 CAPSULE BY MOUTH EVERY DAY, # 90 capsule, 0 Refills, Maintenance, 10/03/21 15:14:00 EST, Capsule, [facility]/pharmacy #[id number], Partial fill upon patient [...] EST, Supply Start Date: 10/03/21 Status: Ordered [place] 0.65% nasal spray 2 sprays, Nares, Both, 4 times a day, # 1 each, 0 Refills, Maintenance, 06/23/21 9:54:00 EDT, [facility]/pharmacy #[id number], Partial fill upon patient [...] 0 Refills, Maintenance, 10/03/21 15:20:00 EST, Tablet, [facility]/pharmacy #[id number], Partial fill upon patient [...] Unknown, 1 Refills, Maintenance, 10/03/21 15:21:00 EST, [facility]/pharmacy #[id number], 90, INJECT 1MG INTO [...] tablet, 0 Refills, Maintenance, 12/25/22 17:47:00 EST, [facility]/pharmacy #[id number], Pa... Start Date: 12/25/22 Status: Ordered PEG-3350 with Electrolytes (Eqv-NuLYTELY) oral powder for reconstitution See Instructions, as directed, # 1 each, 0 Refills, Maintenance, 12/26/20 14:56:00 EST, [id number], [place] to substitute for [...] M79.7HEIGHT- 5' WEIGHT- 175LBS LIFETIME NEED FAX: [phone], 02/03/21 14:22:00 EDT, Supply Start Date: 02/03/21 [...] 11 Refills, Maintenance, 11/28/20 13:19:00 EST, Aerosol, [facility]/pharmacy #[id number], Partial fill upon patient request if the prescription is for a schedule II opioid drug., 153, cm, 11/28/20 12:47:00 EST, Height, 79.6, kg,... 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 Hidradenitis suppurativa Confirmed Active [...] Care Nurse Name: Nevin Smith NP Position: [facility] PCO Associate Professional Member Role: Primary Care Nurse Address: Address: [address] [place] [address] [place] [address]- [place] Name: Bradly Bucio Position: [facility] RN Member Role: Primary Care Nurse Name: Elana Silver RN Position: [facility] RN Member Role: Primary Care Nurse Name: Adriana Lamar RN Position: [facility] RN Member Role: Primary Care Nurse Name: Lory Gillis RN Position: [facility] RN Member Role: Primary Care Nurse Name: Levy Buenrostro RN Position: [facility] RN Member Role: Primary Care Nurse Name: Isabela Quiroz RN Position: [facility] Outreach Member Role: Primary Care Nurse Name: Keyanna Michaels RN Position: [facility] RN Member Role: Primary Care Nurse Name: Loreta Morales NP Position: [facility] PCO Associate Professional Member Role: PCP Address: Address: [address] [place] [address]- [place] Care Team Related Persons Name: JESSICA LAUREN Address: home [address] [place] [address] Name: LAUREN ALDANA Address: home [address] [place] [address]
--- NOTE | 2023-08-13 22:24 | PC.NURSE ---
CHANO Linares in room attempting ultra sound guided iv to obtain lab work/blood cultures/ access.
[2023-08-13 22:50] LABS: Basophils Percent Auto 0.3 % (0-2); Eosinophils Absolute Auto 0.3 X10*3/uL (0.0-0.4); Hematocrit 42.2 % (37.0-47.0); Imm Gran Abs Auto 0.02 X10*3/uL (0.00-0.03); Imm Gran Pct Auto 0.3 % (0.0-0.4); Lymphocytes Absolute Auto 2.1 X10*3/uL (1.2-4.9); Lymphocytes Percent Auto 31.3 % (20-40); MANUAL DIFF FLAG NO; Mean Corpuscular HGB Conc 33.2 g/dl (31.0-35.0); Mean Corpuscular Hemoglobin 26.6 pg (27.0-33.0); Mean Corpuscular Volume 80.2 fL (80.0-98.0); Mean Platelet Volume 10.1 fL (9.4-12.3); Monocytes Absolute Auto 0.6 X10*3/uL (0.1-1.2); Monocytes Percent Auto 8.8 % (2-11); Neutrophils Absolute Auto 3.7 x10*3/uL (2.0-8.3); Neutrophils Percent Auto 55.3 % (45-73); Platelet Count 301 X10*3/uL (160-400); Red Blood Count 5.26 X10*6/uL (4.20-5.50); Red Cell Distribution Width 12.6 % (11.0-16.0); White Blood Count 6.7 X10*3/uL (4.8-10.8)
[2023-08-13 23:09] LABS: Lactic Acid 1.5 mmol/L (0.5-2.0)
[2023-08-13 23:11] LABS: C Reactive Protein 1.74 mg/dL (< or = 0.50)
[2023-08-13 23:21] LABS: Alanine Aminotransferase 15 U/L (0-31); Alkaline Phosphatase 110 U/L (39-117); Anion Gap 16 (12-20); Aspartate Amino Transferase 19 U/L (5-31); Bilirubin Total 0.4 mg/dL (0.0-1.0); Blood Urea Nitrogen 8 mg/dL (9-16); Calcium 9.2 mg/dL (8.4-10.2); Carbon Dioxide 19 mmol/L (22-29); Chloride 106 mmol/L (96-108); Creatinine Clr Calc Pharmacy 93.3; Estimated Glomerular Filt Rate > 60; Glucose Random 98 mg/dL (60-115); Potassium 4.1 mmol/L (3.3-5.1); Sodium 137 mmol/L (135-145); Total Protein 8.1 g/dL (6.5-8.0)
[2023-08-13 23:36] LABS: HCG Quantitative < 2 mIU/mL
[2023-08-13 23:52] LABS: Erythrocyte Sedimentation Rate 14 MM/HR (0-20)
[2023-08-13] MEDS: iohexoL 350 MG/ML 100 ML INFUS..BTL 85 ML IV (23:58)
[2023-08-14] MEDS: Morphine Sulfate 4 MG/ML CARTRIDGE IVPUSH (00:28)
[2023-08-14] MEDS: ondansetron HCL 4 MG/2 ML VIAL IVPUSH (00:28)
[2023-08-14 00:30] LABS: Beta-Hydroxybutyrate 0.13 mmol/L (0.02-0.27)
[2023-08-14 01:56] VITALS: BP 140/85; PULSE 78; RESP 18; TEMP 36.7; O2SAT 98
[2023-08-14] MEDS: cefTRIAXone sodium 1 GM in 0.9 % Sodium Chloride 50 ML IV (01:59)
--- NOTE | 2023-08-14 02:11 | P.HPHOSP_ITS ---
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 Patient states that she was diagnosed with COVID-19 about 2 weeks prior to presentation. She was prescribed Paxlovid. Around the same time, patient started to have infection under her right armpit. She noticed erythema, swelling and pain. She was prescribed clindamycin which she took for about 10 days. Patient did not notice any improvement with p.o. antibiotics. Admits subjective fevers and chills. No chest discomfort, palpitations, shortness of breath, abdominal pain, changes in urinary or bowel habits. Does report frequent infections in armpits including abscesses. In the emergency department, cellulitis noted. No abscess on imaging Review of Systems 2 Constitutional: Constitutional: Reports chills and Reports fever(s) Cardiovascular: Cardiovascular: Reports no additional cardiovascular complaints Respiratory: Respiratory: Reports no additional respiratory complaints Gastrointestinal: Gastrointestinal: Reports no additional gastrointestinal complaints Genitourinary: Genitourinary: Reports no additional female genitourinary complaints [facility] Medical History Hidradenitis suppurativa Migraines GERD (gastroesophageal reflux disease) Moderate recurrent major depression Wheelchair bound Diabetes mellitus Iron deficiency anemia Family History Mother Diabetes Hypertension Ovarian cancer Kidney disease Father Colon cancer Maternal Aunt Breast cancer Family/Other Mental health disorder Surgical History History of tumor History of appendectomy History of cholecystectomy Social History Housing: Apartment Alcohol intake: never Patient Tobacco Use Status: Never used Tobacco Smoked in Last 30 Days: No e-Cigarette/Vaping Use: Never Used Second Hand Smoke Exposure: No Use of substances other than those prescribed or required for medical reasons: No Advance Directives: No Advance Directives Information Provided: No service: No Current occupational status: disabled Cognitive needs: Yes Hearing needs: No Vision needs: Yes Meds Allergies Allergy/AdvReac Type Severity Reaction Status Date / Time honey Allergy Severe mouth Verified 08/13/23 22:26 swelling, trouble breathing Penicillins [PENICILLINS] Allergy Intermediate HIVES Verified 08/13/23 22:26 sulfamethoxazole Allergy Mild HIVES Verified 08/13/23 22:26 [From BACTRIM] trimethoprim [From BACTRIM] Allergy Mild HIVES Verified 08/13/23 22:26 doxycycline Allergy Unknown Hives Verified 08/13/23 22:26 penicillin V Allergy Unknown anaphylaxis Verified 08/13/23 22:26 Sulfa (Sulfonamide Allergy Unknown anaphylaxis Verified 08/13/23 22:26 Antibiotics) dextran sulfate AdvReac Mild ITCHY Verified 08/13/23 22:26 [DEXTRAN SULFATE] SENSATION INFUSION COMPLETED AFTER IV BENADRYL bactrim Allergy Severe hives Uncoded 06/10/22 07:17 From Honey Bee Venom Protein Allergy Mild DYSPNEA/RASH Uncoded 06/10/22 07:17 (APIS MELLIFERA VE) peanuts Allergy Unknown anaphylaxis Uncoded 06/10/22 07:17 Active Medications: Current Medications Vancomycin HCl 1,500 mg/ (Sodium Chloride) 500 mls @ 333.333 mls/hr IV ONCE ONE Stop: 08/14/23 02:55 Home Medications Medication Instructions Recorded Confirmed Last Taken Type clonazepam 1 mg tablet 1 mg PO QID 12/17/20 12/17/20 Unknown History metformin 1,000 mg tablet 1,000 mg PO DAILY 12/17/20 12/17/20 Unknown History oxycodone 5 mg tablet 5 mg PO Q6H PRN Pain 12/17/20 12/17/20 Unknown History topiramate 50 mg tablet 50 mg PO BID 12/17/20 12/17/20 Unknown History tramadol 50 mg tablet 50 mg PO BID PRN Pain 12/17/20 12/17/20 Unknown History albuterol sulfate 2.5 mg/3 mL 2.5 mg inhalation Q4-6H PRN 06/09/22 06/09/22 Unknown History (0.083 %) solution for nebulization wheezing albuterol sulfate 90 mcg/actuation 2 puff inhalation Q4-6H PRN dyspnea 06/09/22 06/09/22 Unknown History aerosol inhaler (Ventolin HFA) butalbital 50 mg-acetaminophen 325 1 cap PO Q4H PRN 06/09/22 06/09/22 Unknown History mg-caffeine 40 mg-codeine 30 mg cap carbamazepine 100 mg 200 mg PO BID 06/09/22 06/09/22 Unknown History tablet,extended release,12 hr clonazepam 0.5 mg tablet 0.5 mg PO TID PRN anxiety 06/09/22 06/09/22 Unknown History fluticasone propionate 50 2 spray intranasal DAILY 06/09/22 06/09/22 Unknown History mcg/actuation nasal spray,suspension galcanezumab-gnlm 120 mg/mL mg subcut Q4W 06/09/22 06/09/22 Unknown History subcutaneous pen injector (Emgality Pen) ibuprofen 600 mg tablet 600 mg PO BID 06/09/22 06/09/22 Unknown History ipratropium bromide 42 mcg (0.06 2 spray intranasal TID 06/09/22 06/09/22 Unknown History %) nasal spray omeprazole 20 mg capsule,delayed 20 mg PO QAM 06/09/22 06/09/22 Unknown History release prazosin 2 mg capsule 2 mg PO BEDTIME 06/09/22 06/09/22 Unknown History quetiapine 100 mg tablet 100 mg PO BEDTIME 06/09/22 06/09/22 Unknown History tiotropium bromide 1.25 2 puff inhalation DAILY 06/09/22 06/09/22 Unknown History mcg/actuation mist for inhalation (Spiriva Respimat) Physical Exam 2 Vital Signs and Narrative: Vital Signs: Last Vital Signs Temp 98.0 F 08/14/23 01:56 Pulse 78 08/14/23 01:56 Resp 18 08/14/23 01:56 BP 140/85 H 08/14/23 01:56 Pulse Ox 98 08/14/23 01:56 O2 Del Method Room Air 08/14/23 01:56 BMI result Body Mass Index 32.0 Middle-aged female lying in bed in no distress Neck supple, no JVD Regular rate and rhythm, S1-S2 heard Regular breath sounds bilaterally, no wheezing or crackles appreciated Abdomen soft nontender, no guarding, no rigidity Patient is awake, alert and oriented to self, place, time and person ; no focal motor deficit Skin: Right armpit erythema, warmth and tenderness Psych: Normal mood No pedal edema Results Labs 08/13/23 22:43 08/13/23 22:43 Labs: Laboratory Results - last 24 hr 08/13/23 08/13/23 22:43 22:44 MCV 80.2 MCH 26.6 L MCHC 33.2 RDW 12.6 Plt Count 301 MPV 10.1 Immature Gran % (Auto) 0.3 Neut % (Auto) 55.3 Lymph % (Auto) 31.3 Sunflower % (Auto) 8.8 Eos % (Auto) 4.0 Baso % (Auto) 0.3 Lymph # (Auto) 2.1 Sunflower # (Auto) 0.6 Eos # (Auto) 0.3 Baso # (Auto) 0.0 Abs Immat Gran (auto) 0.02 Absolute Neuts (auto) 3.7 Absolute Nucleated RBC 0.000 Nucleated RBC % (auto) 0.0 ESR 14 Anion Gap 16 Estim Creat Clear Calc 93.3 Estimated GFR > 60 Random Glucose 98 Lactic Acid 1.5 Calcium 9.2 Total Bilirubin 0.4 AST 19 ALT 15 Alkaline Phosphatase 110 C-Reactive Protein 1.74 H Total Protein 8.1 H Albumin 4.0 Beta-Hydroxybutyrate 0.13 Beta HCG, Quant < 2 Imaging Radiologist's Impressions: Impressions Humerus CT 08/14/23 00:10 IMPRESSION: No significant abnormality Assessment and Plan (1) Cellulitis of right arm: Status: Acute Plan This is a 43-year-old female with pertinent history of hidradenitis suppurativa, vzt-ytpybln-lzaeopzak diabetes mellitus, 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 #. Cellulitis of right arm. Will admit patient for IV antibiotics as she failed outpatient p.o. antibiotics. Monitor for improvement. No sepsis. #. Ohp-zgttgrq-zkbsmvodz diabetes mellitus. Initiating Accu-Cheks with sliding scale insulin #. Mood disorder. Continue home mood stabilizers #. Gastroesophageal reflux disease: On PPI Med rec pending DVT prophylaxis: Lovenox Full code Admit as inpatient and will require two night minimum hospital stay for IV antibiotics Time Spent With Patient Time: Total time managing care of this patient today ____ minutes. Quality Stroke Does the patient have a stroke diagnosis?: No VTE Prior VTE?: No VTE Risk Level:: Medical - moderate - high VTE Device Contraindication: Treatment Not Indicated VTE Drug Contraindication: N/A - Med Ordered
[2023-08-14] MEDS: vancomycin HCL 1,500 MG in 0.9 % Sodium Chloride 500 ML 333.33 MG IV (02:46)
[2023-08-14] MEDS: clonazePAM 0.5 MG TABLET PO ×2 (02:46→20:46)
[2023-08-14] MEDS: QUEtiapine Fumarate 100 MG TABLET PO (02:46)
[2023-08-14] MEDS: Pregabalin 50 MG CAPSULE PO ×3 (02:56→20:46)
--- NOTE | 2023-08-14 05:10 | PC.NURSE ---
RAYSA IV line infiltrated, Dr. Vásquez notified, this RN will attempt to establish IV line in right hand.
[2023-08-14] MEDS: Lidocaine HCl 4 % Topical 50 ML SOLUTION 1 APPL TOPICAL (05:17)
--- NOTE | 2023-08-14 05:49 | PC.NURSE ---
Patient refusing to have IV line placed in her hands d/t history of infections. Per pt, Dr. Bay does not want IV lines in her hands-pt refusing IV line at this time. She would like to see if it's ok for her to try oral antibiotics. She was explained that she failed outpatient oral abt, but continues to insist. Dr. Vásquez informed, per differ til morning. is aware that only 210 ml of Vanco infused.
[2023-08-14] MEDS: Acetaminophen 325 MG TABLET 650 MG PO (06:37)
[2023-08-14 07:18] VITALS: BP 124/69; PULSE 87; RESP 16; TEMP 36.6; O2SAT 98
--- NOTE | 2023-08-14 07:25 | PC.NURSE ---
pt a&ox3, vss and up to date. pt verbalizing non-radiating 9/10 pain in her RUE at this time. pt refusing POC at this time - states that her sugars are under control. per night time RN - pt is tough stick. pt does not want access placed in hands d/t past hx of infection from IV insertion at [facility]. currently warming up pt's arms w/ warm towels in attempts to obtain IV access. pt resting comfortably in no apparent distress. respirations even and unlabored. call roa placed within reach.
[2023-08-14] MEDS: 0.9 % Sodium Chloride Flush 3 ML SYRINGE IVFLUSH (07:29)
--- NOTE | 2023-08-14 08:33 | PHA.MEDREC ---
Pharmacy Consult ? Medication Reconciliation Pharmacy has completed the medication reconciliation Patient reports that they take 3 inhalers: Symbicort, Spiriva, and Albuterol. However, all three medications were last filled in July (Symbicort, albuterol) and August (Spiriva) 2021. Patient endorses that they still take them and subsequently were added to med rec.
--- NOTE | 2023-08-14 08:39 | PC.NURSE ---
RUE outlined w/ skin marker. erythema/swelling/skin warm to the touch noted. physical signs do not exceed border that was lined w/ marker. pt state she has fever/chills yesterday but pt continues to remain afebrile at this time.
--- NOTE | 2023-08-14 08:46 | PHA.PROG ---
Admission Date/Time: August 14, 2023 02:08 Indication: SKIN/STRUCTURE Weight in k.389 kg Adjusted body weight in K.056 [place] body weight in K.5 Obesity Dosing Indication % IBW: 32.0 Serum Creatinine - Last 168 Hours 08/13/23 22:43 Creatinine 0.70 Estimated CrCl and GFR - Last 168 Hours 08/13/23 22:43 Estim Creat Clear Calc 93.3 Estimated GFR > 60 Vancomycin Loading Dose: 1500 Current Vancomycin Dosing Regimen: 1000 Q12 Vancomycin Monitoring using AUC goal of 400 - 600 range with trough as surrogate marker: 438 Date and Time for next Vancomycin Level to be drawn: 08/15 @0900 Pharmacist Comments on Vancomycin Plan: APPROPRIATE LOAD GIVEN IN ED OVERNIGHT. OBESE MODEL USED FOR DOSING. Vancomycin dosing will take advantage of [employer] as a clinical decision support tool that uses Bayesian modeling to calculate individual patient's pharmacokinetic parameters and forecast the patient's drug concentration time course with the target goal AUC 24 range of 400 - 600 mg/L/hr.
--- NOTE | 2023-08-14 09:05 | PC.NURSE ---
pt currently speaking w/ admitting provider. pt aware of plan of care at this time. will reattempt to obtain IV access so IV abx can be administered per provider order.
[2023-08-14] MEDS: Omeprazole 20 MG CAPSULE.DR PO (09:24)
[2023-08-14] MEDS: QUEtiapine Fumarate 200 MG TABLET PO ×2 (09:24→20:46)
[2023-08-14] MEDS: Sertraline HCL 100 MG TABLET 200 MG PO (09:24)
[2023-08-14] MEDS: Prazosin HCL 1 MG CAPSULE 4 MG PO ×2 (09:24→20:46)
--- NOTE | 2023-08-14 09:30 | PC.NURSE ---
medication administered per provider order. pt accidentally dropped 1 out of 4 prazosin on ground when administering medications. notified pt that i am able to obtain another but she states that she does not want to take it. pt also refused metformin d/t the fact if she needs another CT w/ contrast. documented in JAN. pt requesting lidocaine and warm packs prior to IV insertion. will attempt IV access shortly.
[2023-08-14 09:46] VITALS: BP 105/64; PULSE 87; RESP 16; TEMP 36.4; O2SAT 99
--- NOTE | 2023-08-14 09:49 | PC.NURSE ---
contacted provider about putting order in for lidocaine/EMLA cream in the MAR so IV access can bve obtained. pt also c/o RUE pain. pt last had PRN tylenol administered at 06:37. pt not due for another dose at this time. provider aware.
--- NOTE | 2023-08-14 10:33 | PC.NURSE ---
phlebotomy bedside w/ pt - pt refusing labs at this time. pt notified phlebotomy that her oncologist doctor advised pt to not get blood drawn unless it was through her IV.
--- NOTE | 2023-08-14 10:53 | PC.NURSE ---
LMX cream not in pyxis - pharmacy notified and states they will send medication down shortly. medications will be administered per provider order when able.
--- NOTE | 2023-08-14 11:46 | PC.NURSE ---
still awaiting LMX cream from pharmacy. called pharmacy for second time so medication can be delivered. will obtain IV access, draw labs, and administer medications when able.
[2023-08-14] MEDS: Lidocaine 4 % Cream KIT 1 APPL TOPICAL (11:55)
--- NOTE | 2023-08-14 11:57 | PC.NURSE ---
LMX cream applied to designated IV access site. will attempy shortly.
--- NOTE | 2023-08-14 12:43 | PC.NURSE ---
KELLY Segura attempting obtain IV access via ultrasound.
--- NOTE | 2023-08-14 12:58 | PC.NURSE ---
IV access unsuccessful via ultrasound. will notify admitting provider.
--- NOTE | 2023-08-14 13:53 | PC.NURSE ---
admitting provider aware that pt was a hard stick and we were unable to obtain IV access. provider states that he will transition to PO abx. will administer when able.
[2023-08-14 14:12] VITALS: BP 95/61; PULSE 92; RESP 16; TEMP 36.4; O2SAT 98
[2023-08-14] MEDS: Clindamycin HCL 300 MG CAPSULE 600 MG PO ×2 (14:13→22:05)
--- NOTE | 2023-08-14 14:14 | PC.NURSE ---
abx administered per provider order.
--- NOTE | 2023-08-14 14:53 | PC.NURSE ---
attempted to give report to RN on IMC. not able to take report at this time. RN states that they will call the ED back shortly.
--- NOTE | 2023-08-14 15:34 | PC.NURSE ---
attempted to call ED for report, placed on hold with no answer.
[2023-08-14 15:39] LABS: Alanine Aminotransferase 15 U/L (0-31); Albumin Level 3.6 g/dL (3.5-5.0); Alkaline Phosphatase 105 U/L (39-117); Anion Gap 16 (12-20); Aspartate Amino Transferase 15 U/L (5-31); Bilirubin Total 0.4 mg/dL (0.0-1.0); Blood Urea Nitrogen 9 mg/dL (9-16); Calcium 9.1 mg/dL (8.4-10.2); Carbon Dioxide 19 mmol/L (22-29); Chloride 108 mmol/L (96-108); Creatinine Clr Calc Pharmacy 78.7; Estimated Glomerular Filt Rate > 60; Glucose Random 216 mg/dL (60-115); Sodium 139 mmol/L (135-145); Total Protein 7.1 g/dL (6.5-8.0)
--- NOTE | 2023-08-14 15:56 | PC.NURSE ---
report given to RN on S3. transport notified and aware.
[2023-08-14 16:00] VITALS: BP 102/71; PULSE 83; RESP 18; TEMP 36.7; O2SAT 97
[2023-08-14 16:22] LABS: Glucose, Whole Blood 144 mg/dL (60-115)
[2023-08-14 19:52] VITALS: BP 108/69; PULSE 84; RESP 18; TEMP 36.3; O2SAT 96
[2023-08-15 03:01] VITALS: BP 97/56; PULSE 76; RESP 14; TEMP 36; O2SAT 96
[2023-08-15] MEDS: Clindamycin HCL 300 MG CAPSULE 600 MG PO (05:47)
[2023-08-15] MEDS: Omeprazole 20 MG CAPSULE.DR PO (05:47)
[2023-08-15 07:01] VITALS: BP 103/55; PULSE 84; RESP 16; TEMP 36.1; O2SAT 96
[2023-08-15] MEDS: Sertraline HCL 100 MG TABLET 200 MG PO (08:26)
[2023-08-15] MEDS: Pregabalin 50 MG CAPSULE PO ×2 (08:26→21:11)
--- NOTE | 2023-08-15 10:46 | MHC.CM.PN ---
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
[2023-08-15] MEDS: Linezolid 600 MG TABLET PO (11:08)
--- NOTE | 2023-08-15 11:31 | PM.DS ---
DS: Providers Provider Date of Service: 08/15/23 Date of admission: 08/14/23 02:08 Date of discharge: 08/15/23 Primary care physician: Unknown Physician Consults: 08/15/23 07:07 Consult to Infectious Diseases Routine Consulting Provider: [facility] Infectious Disease Reason for consultation: arm celluitis Has provider been notified: No Attending physician on discharge: Delfino Fontaine Discharging clinician: Delfino Fontaine DS: Diagnosis Discharge Diagnosis (1) Cellulitis of right arm: Status: Acute DS: Summary Hospital Course Hospital Course: date of service and discharge: 08/16/23. 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 Patient states that she was diagnosed with COVID-19 about 2 weeks prior to presentation. She was prescribed Paxlovid. Around the same time, patient started to have infection under her right armpit. She noticed erythema, swelling and pain. She was prescribed clindamycin which she took for about 10 days. Patient did not notice any improvement with p.o. antibiotics. Admits subjective fevers and chills. No chest discomfort, palpitations, shortness of breath, abdominal pain, changes in urinary or bowel habits. Does report frequent infections in armpits including abscesses. In the emergency department, cellulitis noted. No abscess on imaging. Hospital course: Patient Came to the hospital because of armpit cellulitis -started on iv antibiotics -seems improving , no leucocytosis or fever ,blood culture neg @24hrs. Patient was switched to p.o. antibiotics. discussed with ID and surgery- In addition patient was told to follow-up with Dermatology since if does not improve then may need dermatology evaluation for possible hidraenitis. plan: Complete antibiotic course For 5 days. Dermatology since if does not improve then may need dermatology evaluation for possible hidraenitis. Time spent 50 minute patient understand and in agreement with the above plan. Time Spent with Patient Time attestation: Total time managing care of this patient today ____ minutes. Discharge coordination time: Greater than 30 minutes Quality: Safe Use of Opioids Does Pt have an Active Cancer Diagnosis on the Problem List?: No Quality: Stroke Does the patient have a stroke diagnosis?: No Physical Exam Vital Signs: Vital Signs: Last Vital Signs Temp 97 F 08/15/23 07:01 Pulse 84 08/15/23 07:01 Resp 16 08/15/23 07:01 BP 103/55 L 08/15/23 07:01 Pulse Ox 96 08/15/23 07:01 O2 Del Method Room Air 08/15/23 07:01 BMI result Body Mass Index 32.0 aox2 , no distress Neck supple, no JVD Regular rate and rhythm, S1-S2 heard Regular breath sounds bilaterally, no wheezing or crackles appreciated Abdomen soft nontender, no guarding, no rigidity Patient is awake, alert and oriented to self, place, time and person ; no focal motor deficit Skin: Right armpit erythema seems to be improved significantly , drainage improved ,no pain or flacutation No pedal edema DS: Data Data Completed and Pending Labs on day of discharge: Laboratory Results - last 24 hr 08/14/23 08/14/23 08/14/23 14:50 14:51 14:51 Hold Purple Top SEE NOTE Sodium 139 Potassium 4.0 Chloride 108 Carbon Dioxide 19 L Anion Gap 16 BUN 9 Creatinine 0.83 Cancelled Estim Creat Clear Calc 78.7 Estimated GFR POC Glucose Random Glucose Calcium Total Bilirubin AST ALT Alkaline Phosphatase Total Protein Albumin 08/14/23 08/14/23 08/14/23 14:51 14:51 16:16 Hold Purple Top Sodium Potassium Chloride Carbon Dioxide Anion Gap BUN Creatinine Estim Creat Clear Calc Cancelled Estimated GFR > 60 Cancelled POC Glucose 144 H Random Glucose 216 H Calcium 9.1 Total Bilirubin 0.4 AST 15 ALT 15 Alkaline Phosphatase 105 Total Protein 7.1 Albumin 3.6 Preliminary micro results at discharge 08/13/23 22:44 Blood Culture - Preliminary Blood - Venous No growth after 24 hours. 08/13/23 22:44 Blood Culture - Preliminary Blood - Venous No growth after 24 hours. Imaging Chest x-ray: Radiologist's impression: ITS Impressions Humerus CT 08/14/23 00:10 IMPRESSION: No significant abnormality Discharge Plan Discharge Anticipated Discharge Date/Time: 08/15/23 11:17 Patient Disposition: Home, Self-Care Discharge Diagnosis: possible cellulitis armpit. Referrals: Physician,Unknown J [Primary Care Provider] - 1 Week Discharge Medications: New docusate sodium 100 mg Capsule 100 mg PO BID PRN (Reason: constipation) Qty: 30 0RF clindamycin HCl 150 mg capsule 450 mg PO TID Qty: 45 0RF Continued (DME) FreeStyle Test Strip See Rx Instructions .Route Qty: 100 2RF Rx Instructions: Use 1 test strip three times a day metformin 500 mg tablet 500 mg PO BID 90 Days Qty: 180 1RF (DME) blood-glucose meter [FreeStyle Lite Meter] Kit See Rx Instructions .Route Qty: 1 0RF Rx Instructions: As directed (DME) FreeStyle Lite Strips Strip See Rx Instructions .Route Qty: 100 1RF Rx Instructions: Use 1 test strip once a day (DME) lancets [FreeStyle Lancets] 28 gauge misc See Rx Instructions .Route Qty: 100 2RF Rx Instructions: Use 1 lancet once a day pregabalin 50 mg capsule 50 mg PO BID sertraline 100 mg tablet 200 mg PO DAILY quetiapine 200 mg tablet 200 mg PO BEDTIME Ozempic 1 mg/dose (4 mg/3 mL) pen injector 1 mg subcut FR@0900 Spiriva Respimat 1.25 mcg/actuation Mist 2 puff INHALATION DAILY budesonide-formoterol [Symbicort] 160-4.5 mcg/actuation Hfa Aerosol Inhaler 2 puff INHALATION BID albuterol sulfate [Ventolin HFA] 90 mcg/actuation HFA aerosol inhaler 2 puff inhalation Q6H PRN (Reason: dyspnea) albuterol sulfate 2.5 mg /3 mL (0.083 %) solution for nebulization 2.5 mg inhalation Q6H PRN (Reason: wheezing) omeprazole 20 mg capsule,delayed release(DR/EC) 20 mg PO DAILY@0630 prazosin 2 mg capsule 4 mg PO BEDTIME clonazepam 0.5 mg tablet 0.5 mg PO TID PRN (Reason: anxiety) Discharge Orders: Discharge Order (Routine); Ordered 08/16/23 Ordered By: Delfino Fontaine Diet: Advance to usual diet Activity on Discharge: As tolerated Stand Alone Forms: Patient Portal Discharge page Care Plan Goals: Patient Came to the hospital because of armpit cellulitis -started on iv antibiotics -seems improving , no leucocytosis or fever ,blood culture neg @24hrs. Patient was switched to p.o. antibiotics. discussed with ID and surgery- In addition patient was told to follow-up with Dermatology since if does not improve then may need dermatology evaluation for possible hidraenitis. Health Concerns: as above. Plan of Treatment: as above. Assessment: as above.
[2023-08-15] MEDS: Clindamycin HCL 300 MG CAPSULE 900 MG PO ×2 (13:13→21:12)
--- NOTE | 2023-08-15 13:16 | HO.PM.IMPN ---
Subjective Subjective Date of Service: 08/16/23 Interval History: armpit cellulitis Review of Systems seems improving no fever no drainage or flacuatation Physical Exam Vital Signs: Vital Signs: Last Vital Signs Temp 97 F 08/15/23 07:01 Pulse 84 08/15/23 07:01 Resp 16 08/15/23 07:01 BP 103/55 L 08/15/23 07:01 Pulse Ox 96 08/15/23 07:01 O2 Del Method Room Air 08/15/23 07:01 BMI result Body Mass Index 32.0 aox2 , no distress Neck supple, no JVD Regular rate and rhythm, S1-S2 heard Regular breath sounds bilaterally, no wheezing or crackles appreciated Abdomen soft nontender, no guarding, no rigidity Patient is awake, alert and oriented to self, place, time and person ; no focal motor deficit Skin: Right armpit erythema seems to be improved significantly , drainage improved ,no pain or flacutation No pedal edema Objective Data Active Medications Acetaminophen (Acetaminophen 325 Mg Tablet) 650 mg PO Q6H PRN PRN Reason: Pain, Mild (Pain Scale 1-3) Last Admin: 08/14/23 06:37 Dose: 650 mg Documented By: WILMAR Albuterol Sulfate (Albuterol Sulfate (0.083%) 2.5 Mg/3 Ml Vial.Neb) 2.5 mg INHALE Q6H PRN PRN Reason: wheezing Albuterol Sulfate (Albuterol Sulfate 90 Mcg 8 Gm Inhaler) 2 puff INHALE Q6H PRN PRN Reason: dyspnea Clindamycin HCl (Clindamycin Hcl 300 Mg Capsule) 900 mg PO Q8H [facility] Last Admin: 08/15/23 13:13 Dose: 900 mg Documented By: GRACIELA Clonazepam (Clonazepam 0.5 Mg Tablet) 0.5 mg PO TID PRN PRN Reason: anxiety Last Admin: 08/14/23 20:46 Dose: 0.5 mg Documented By: CASTILSophie Dextrose (Dextrose 50 % 25 Gm/50 Ml Syringe) 25 gm IVPUSH Q15M PRN; Protocol PRN Reason: per Hypoglycemia Standing Ord. Enoxaparin Sodium (Enoxaparin Sodium 40 Mg/0.4 Ml Syringe) 40 mg SUBCUT Q24H [facility] Last Admin: 08/15/23 01:52 Dose: Not Given Documented By: MO Non-Admin Reason: Patient Refused Fluticasone/Vilanterol (Fluticasone/Vilanterol 200/25 Blst.W.Dev) 1 puff INHALE RDAILY [facility] Last Admin: 08/15/23 07:54 Dose: Not Given Documented By: BURTON Non-Admin Reason: pharmacy called Glucose (Glucose Gel 15 Gm Gel..Gram.) 15 gm PO Q15M PRN; Protocol PRN Reason: per Hypoglycemia Standing Ord. Insulin Human Lispro (Insulin Lispro 100 Unit/Ml 3 Ml Vial) 0 unit SUBCUT QIDACHS [facility]; Protocol Last Admin: 08/15/23 11:08 Dose: Not Given Documented By: GRACIELA Non-Admin Reason: refusing POC Lidocaine HCl (Lidocaine 4 % Cream Kit) 1 appl TOPICAL ONCE PRN; Protocol PRN Reason: Pain, Mild (Pain Scale 1-3) Last Admin: 08/14/23 11:55 Dose: 1 appl Documented By: CHELLE Melatonin (Melatonin 3 Mg Tablet) 6 mg PO BEDTIME PRN PRN Reason: Insomnia Metformin HCl (Metformin Hcl 500 Mg Tablet) 500 mg PO BIDWM [facility] Last Admin: 08/15/23 07:22 Dose: Not Given Documented By: GRACIELA Non-Admin Reason: Patient Refused Non-Formulary Medication (Semaglutide [Ozempic]) 1 mg SUBCUT FR@0900 [facility] Omeprazole (Omeprazole 20 Mg Capsule.) 20 mg PO DAILY@0630 [facility] Last Admin: 08/15/23 05:47 Dose: 20 mg Documented By: MO Ondansetron HCl (Ondansetron Hcl 4 Mg/2 Ml Vial) 4 mg IVPUSH Q8H PRN PRN Reason: Nausea and Vomiting Prazosin HCl (Prazosin Hcl 1 Mg Capsule) 4 mg PO BEDTIME [facility]; Protocol Last Admin: 08/14/23 20:46 Dose: 4 mg Documented By: MO Pregabalin (Pregabalin 50 Mg Capsule) 50 mg PO BID [facility] Last Admin: 08/15/23 08:26 Dose: 50 mg Documented By: GRACIELA Quetiapine Fumarate (Quetiapine Fumarate 200 Mg Tablet) 200 mg PO BEDTIME [facility] Last Admin: 08/14/23 20:46 Dose: 200 mg Documented By: MO Sertraline HCl (Sertraline Hcl 100 Mg Tablet) 200 mg PO DAILY [facility] Last Admin: 08/15/23 08:26 Dose: 200 mg Documented By: GRACIELA Sodium Chloride (0.9 % Sodium Chloride Flush 3 Ml Syringe) 3 ml IVFLUSH QSHIFT [facility] Last Admin: 08/15/23 07:21 Dose: Not Given Documented By: GRACIELA Non-Admin Reason: No Access Tiotropium Normanna (Tiotropium Normanna 2.5 Mcg Inhaler) 1 puff INHALE RDAILY [facility] Last Admin: 08/15/23 07:54 Dose: Not Given Documented By: BURTON Non-Admin Reason: pharmacy called Labs 08/13/23 22:43 08/14/23 14:51 Labs: Laboratory Results - last 24 hr 08/14/23 08/14/23 08/14/23 14:50 14:51 14:51 Hold Purple Top SEE NOTE Anion Gap 16 Estim Creat Clear Calc 78.7 Cancelled Estimated GFR > 60 POC Glucose Random Glucose Calcium Total Bilirubin AST ALT Alkaline Phosphatase Total Protein Albumin 08/14/23 08/14/23 14:51 16:16 Hold Purple Top Anion Gap Estim Creat Clear Calc Estimated GFR Cancelled POC Glucose 144 H Random Glucose 216 H Calcium 9.1 Total Bilirubin 0.4 AST 15 ALT 15 Alkaline Phosphatase 105 Total Protein 7.1 Albumin 3.6 Microbiology Microbiology Results: Microbiology 08/13/23 22:44 Blood Culture - Preliminary Blood - Venous No growth after 24 hours. 08/13/23 22:44 Blood Culture - Preliminary Blood - Venous No growth after 24 hours. 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 Cellulitis of right arm. continue adjusted dose clidamycin 900 mg tid. po options of antibiotics are limited due to multiple antibiotics allergies and psych meds ( with linezolid) Monitor for improvement. No sepsis. Uvk-[id number]-[id number] diabetes mellitus. Initiating Accu-Cheks with sliding scale insulin Mood disorder. Continue home mood stabilizers Gastroesophageal reflux disease: On PPI Time Spent With Patient Time: Total time managing care of this patient today ____ minutes. Quality Stroke Does the patient have a stroke diagnosis?: No VTE Prior VTE?: No VTE Risk Level:: Medical - moderate - high VTE Device Contraindication: Treatment Not Indicated VTE Drug Contraindication: N/A - Med Ordered
[2023-08-15 14:58] VITALS: BP 107/78; PULSE 89; RESP 18; TEMP 36.6; O2SAT 98
[2023-08-15] MEDS: Albuterol Sulfate 90 MCG 8 GM INHALER 2 PUFF INHALE (15:57)
[2023-08-15] MEDS: polyethylene glycoL 3350 17 GM POWD.PACK PO (17:11)
[2023-08-15 19:22] VITALS: BP 114/65; PULSE 91; RESP 18; TEMP 36.3; O2SAT 97
[2023-08-15 20:15] LABS: Glucose, Whole Blood 272 mg/dL (60-115)
[2023-08-15] MEDS: clonazePAM 0.5 MG TABLET PO (21:11)
[2023-08-15] MEDS: Prazosin HCL 1 MG CAPSULE 4 MG PO (21:11)
[2023-08-15] MEDS: QUEtiapine Fumarate 200 MG TABLET PO (21:12)
[2023-08-15] MEDS: Docusate Sodium 100 MG CAPSULE PO (21:12)
[2023-08-15] MEDS: Insulin Lispro 100 UNIT/ML 3 ML VIAL SUBCUT (21:12)
[2023-08-15] MEDS: Sodium Phosphate,Mono-Dibasic 133 ML ENEMA PR (21:45)
[2023-08-16 03:49] VITALS: BP 100/71; PULSE 84; RESP 17; TEMP 36.2; O2SAT 97
[2023-08-16] MEDS: Clindamycin HCL 300 MG CAPSULE 900 MG PO ×2 (06:17→14:24)
[2023-08-16] MEDS: Omeprazole 20 MG CAPSULE.DR PO (06:17)
[2023-08-16 07:10] VITALS: BP 121/62; PULSE 78; RESP 20; TEMP 36.3; O2SAT 97
--- NOTE | 2023-08-16 07:25 | PC.NURSE ---
@ ~6:55 this nurse was notified by ASSOCIATE PROFESSOR OF RADIOLOGY that pt did not want to have her POC glucose taken. This nurse provided relevant education to pt, but pt continued to refuse finger stick. Pt is currently asymptomatic and insulin sliding scale will be held.
[2023-08-16] MEDS: Fluticasone/Vilanterol 200/25 BLST.W.DEV 1 PUFF INHALE (07:45)
[2023-08-16 07:46] VITALS: PULSE 84; RESP 16; O2SAT 98
[2023-08-16] MEDS: Sertraline HCL 100 MG TABLET 200 MG PO (09:08)
[2023-08-16] MEDS: metFORMIN HCl 500 MG TABLET PO (09:08)
[2023-08-16] MEDS: Docusate Sodium 100 MG CAPSULE PO (09:09)
[2023-08-16] MEDS: Pregabalin 50 MG CAPSULE PO (09:09)
[2023-08-16] MEDS: polyethylene glycoL 3350 17 GM POWD.PACK PO (09:10)
--- NOTE | 2023-08-16 15:04 | P.CNID_ITS ---
History of Present Illness Data of Consult Service Date: 08/16/23 Requesting physician: Delfino Fontaine Primary Care Provider: Unknown Physician HPI Reason for consult: right arm cellulitis She presents with redness arm worsening after had boil right axilla after having COVID about two weeks ago. She had received Clindamycin outpatient and not feeling better so came to ER. She has no fever now. She has multiple allergies or adverse reactions as listed. Review of Systems 2 Review of Systems: Yes all other systems are reviewed and are negative [facility] Past Medical History Medical History Hidradenitis suppurativa Migraines GERD (gastroesophageal reflux disease) Moderate recurrent major depression Wheelchair bound Diabetes mellitus Iron deficiency anemia Family History Family History Mother Diabetes Hypertension Ovarian cancer Kidney disease Father Colon cancer Maternal Aunt Breast cancer Family/Other Mental health disorder Family history: reviewed and not pertinent Surgical History Surgical History History of tumor History of appendectomy History of cholecystectomy Social History Social History Household Members: None Housing: House Alcohol intake: never Patient Tobacco Use Status: Never used Tobacco e-Cigarette/Vaping Use: Never Used Second Hand Smoke Exposure: No service: No Current occupational status: disabled Cognitive needs: Yes Hearing needs: No Vision needs: Yes Meds Allergies Allergy/AdvReac Type Severity Reaction Status Date / Time honey Allergy Severe mouth Verified 08/13/23 22:26 swelling, trouble breathing Penicillins [PENICILLINS] Allergy Intermediate HIVES Verified 08/13/23 22:26 sulfamethoxazole Allergy Mild HIVES Verified 08/13/23 22:26 [From BACTRIM] trimethoprim [From BACTRIM] Allergy Mild HIVES Verified 08/13/23 22:26 doxycycline Allergy Unknown Hives Verified 08/13/23 22:26 penicillin V Allergy Unknown anaphylaxis Verified 08/13/23 22:26 Sulfa (Sulfonamide Allergy Unknown anaphylaxis Verified 08/13/23 22:26 Antibiotics) dextran sulfate AdvReac Mild ITCHY Verified 08/13/23 22:26 [DEXTRAN SULFATE] SENSATION INFUSION COMPLETED AFTER IV BENADRYL bactrim Allergy Severe hives Uncoded 06/10/22 07:17 From Honey Bee Venom Protein Allergy Mild DYSPNEA/RASH Uncoded 06/10/22 07:17 (APIS MELLIFERA VE) peanuts Allergy Unknown anaphylaxis Uncoded 06/10/22 07:17 Active Medications: Current Medications Acetaminophen (Acetaminophen 325 Mg Tablet) 650 mg PO Q6H PRN PRN Reason: Pain, Mild (Pain Scale 1-3) Last Admin: 08/14/23 06:37 Dose: 650 mg Albuterol Sulfate (Albuterol Sulfate (0.083%) 2.5 Mg/3 Ml Vial.Neb) 2.5 mg INHALE Q6H PRN PRN Reason: wheezing Albuterol Sulfate (Albuterol Sulfate 90 Mcg 8 Gm Inhaler) 2 puff INHALE Q6H PRN PRN Reason: dyspnea Last Admin: 08/15/23 15:57 Dose: 2 puff Clindamycin HCl (Clindamycin Hcl 300 Mg Capsule) 900 mg PO Q8H [facility] Last Admin: 08/16/23 14:24 Dose: 900 mg Clonazepam (Clonazepam 0.5 Mg Tablet) 0.5 mg PO TID PRN PRN Reason: anxiety Last Admin: 08/15/23 21:11 Dose: 0.5 mg Dextrose (Dextrose 50 % 25 Gm/50 Ml Syringe) 25 gm IVPUSH Q15M PRN; Protocol PRN Reason: per Hypoglycemia Standing Ord. Docusate Sodium (Docusate Sodium 100 Mg Capsule) 100 mg PO BID [facility] Last Admin: 08/16/23 09:09 Dose: 100 mg Enoxaparin Sodium (Enoxaparin Sodium 40 Mg/0.4 Ml Syringe) 40 mg SUBCUT Q24H [facility] Last Admin: 08/15/23 21:16 Dose: Not Given Fluticasone/Vilanterol (Fluticasone/Vilanterol 200/25 Blst.W.Dev) 1 puff INHALE RDAILY [facility] Last Admin: 08/16/23 07:45 Dose: 1 puff Glucose (Glucose Gel 15 Gm Gel..Gram.) 15 gm PO Q15M PRN; Protocol PRN Reason: per Hypoglycemia Standing Ord. Insulin Human Lispro (Insulin Lispro 100 Unit/Ml 3 Ml Vial) 0 unit SUBCUT QIDACHS [facility]; Protocol Last Admin: 08/16/23 13:49 Dose: Not Given Lidocaine HCl (Lidocaine 4 % Cream Kit) 1 appl TOPICAL ONCE PRN; Protocol PRN Reason: Pain, Mild (Pain Scale 1-3) Last Admin: 08/14/23 11:55 Dose: 1 appl Melatonin (Melatonin 3 Mg Tablet) 6 mg PO BEDTIME PRN PRN Reason: Insomnia Metformin HCl (Metformin Hcl 500 Mg Tablet) 500 mg PO BIDWM [facility] Last Admin: 08/16/23 09:08 Dose: 500 mg Omeprazole (Omeprazole 20 Mg Capsule.Dr) 20 mg PO DAILY@0630 [facility] Last Admin: 08/16/23 06:17 Dose: 20 mg Ondansetron HCl (Ondansetron Hcl 4 Mg/2 Ml Vial) 4 mg IVPUSH Q8H PRN PRN Reason: Nausea and Vomiting Polyethylene Glycol (Polyethylene Glycol 3350 17 Gm Powd.Pack) 17 gm PO DAILY [facility] Last Admin: 08/16/23 09:10 Dose: 17 gm Prazosin HCl (Prazosin Hcl 1 Mg Capsule) 4 mg PO BEDTIME [facility]; Protocol Last Admin: 08/15/23 21:11 Dose: 4 mg Pregabalin (Pregabalin 50 Mg Capsule) 50 mg PO BID [facility] Last Admin: 08/16/23 09:09 Dose: 50 mg Quetiapine Fumarate (Quetiapine Fumarate 200 Mg Tablet) 200 mg PO BEDTIME [facility] Last Admin: 08/15/23 21:12 Dose: 200 mg Sertraline HCl (Sertraline Hcl 100 Mg Tablet) 200 mg PO DAILY [facility] Last Admin: 08/16/23 09:08 Dose: 200 mg Sodium Chloride (0.9 % Sodium Chloride Flush 3 Ml Syringe) 3 ml IVFLUSH QSHIFT [facility] Last Admin: 08/16/23 09:11 Dose: Not Given Tiotropium [place] (Tiotropium [place] 2.5 Mcg Inhaler) 1 puff INHALE RDAILY [facility] Last Admin: 08/16/23 07:45 Dose: 1 puff Home Medications Medication Instructions Recorded Confirmed Last Taken Type albuterol sulfate 2.5 mg/3 mL 2.5 mg inhalation Q6H PRN wheezing 06/09/22 08/14/23 Unknown History (0.083 %) solution for nebulization albuterol sulfate 90 mcg/actuation 2 puff inhalation Q6H PRN dyspnea 06/09/22 08/14/23 Unknown History aerosol inhaler (Ventolin HFA) clonazepam 0.5 mg tablet 0.5 mg PO TID PRN anxiety 06/09/22 08/14/23 Unknown History omeprazole 20 mg capsule,delayed 20 mg PO DAILY@0630 06/09/22 08/14/23 08/12/23 History release prazosin 2 mg capsule 4 mg PO BEDTIME 06/09/22 08/14/23 08/12/23 History budesonide-formoterol HFA 160 2 puff inhalation BID 08/14/23 08/14/23 Unknown History mcg-4.5 mcg/actuation aerosol inhaler (Symbicort) pregabalin 50 mg capsule 50 mg PO BID 08/14/23 08/14/23 08/12/23 History quetiapine 200 mg tablet 200 mg PO BEDTIME 08/14/23 08/14/23 08/12/23 History semaglutide 1 mg/dose (4 mg/3 mL) 1 mg subcut FR@0900 08/14/23 08/14/23 08/06/23 History subcutaneous pen injector (Ozempic) sertraline 100 mg tablet 200 mg PO DAILY 08/14/23 08/14/23 08/12/23 History tiotropium bromide 1.25 2 puff inhalation DAILY 08/14/23 08/14/23 Unknown History mcg/actuation mist for inhalation (Spiriva Respimat) Physical Exam 2 Vital Signs: Vital Signs: Last Vital Signs Temp 97.3 F 08/16/23 07:10 Pulse 84 08/16/23 07:46 Resp 16 08/16/23 07:46 BP 121/62 08/16/23 07:10 Pulse Ox 97 08/16/23 07:10 O2 Del Method Room Air 08/16/23 07:10 BMI result Body Mass Index 32.0 Const: General: cooperative HEENT: Head: Yes normal to inspection Face and sinus: Yes normal facial exam Mouth: Normal oral and palatal mucosa present Teeth and gingiva: d entition normal Eyes: General: appearance normal, both eyes and all related structures P upils: Equal, round and reactive pupils present Resp: Effort & Inspection: normal respiratory effort Cardio: Rate: regular rate Rhythm: regular rhythm GI: Palpation (GI): Soft to palpation and nontender : General: Yes no CVA tenderness Back/Spine/Pelvis: Back: no CVA tenderness Skin: General skin exam: no rashes or lesions noted Neuro: General: moves all extremities Cranial nerves: Yes Equal, round and reactive pupils present Extrem: Other: healing right axilla boil can make fist arm not reddened General: Yes normal to inspection Psych: Appearance: grossly normal Results Labs 08/13/23 22:43 08/14/23 14:51 Microbiology Microbiology Results: Microbiology 08/13/23 22:44 Blood - Venous Blood Culture - Preliminary No growth after 48 hours. 08/13/23 22:44 Blood - Venous Blood Culture - Preliminary No growth after 48 hours. Assessment and Plan (1) Hidradenitis suppurativa: Status: Acute (2) Cellulitis of right arm: Status: Acute Plan Right upper extremity There is hidradenitis suppurativa. Would give po Clindamycin 450 tid fo only five days since improving now. Time Spent With Patient Time: Total time managing care of this patient today ____ minutes.
== END 2023-08-16 15:11 | disposition home or self-care (01) | DRG 603 ==
LOC: HO.ED 08-14 02:08 → HO.EDOVER 08-14 02:13 → HO.S3 08-14 14:30
PROVIDERS: Physician Assistant; Admitting Provider Student in an Organized Health Care Education/Training Program; Emergency Provider Internal Medicine; Visit Provider Internal Medicine
DX: L03.113 Cellulitis of right upper limb (principal); G82.20 Paraplegia, unspecified; F33.9 Major depressive disorder, recurrent, unspecified; L73.2 Hidradenitis suppurativa; G65.0 Sequelae of Guillain-Barre syndrome; K21.9 Gastro-esophageal reflux disease without esophagitis; Z99.3 Dependence on wheelchair; Z79.84 Long term (current) use of oral hypoglycemic drugs; Z79.899 Other long term (current) drug therapy
CPT/HCPCS: 36415; 73201; 80053; 82010; 82565; 82947; 83605; 84702; 85025; 85652; 86140; 87040; 99285; J0696; J2270; J2405; J3371; Q9967

== ENCOUNTER → 2023-08-14 02:08 | Outpatient (BNV) | payer OTHER, SELFPAY | PROVIDERS: Admitting Provider Student in an Organized Health Care Education/Training Program; Emergency Provider Internal Medicine; Visit Provider Internal Medicine | DX: L73.2 Hidradenitis suppurativa (principal); L03.113 Cellulitis of right upper limb | CPT/HCPCS: 99222 ==

== ENCOUNTER → 2023-08-14 02:08 | Outpatient (BNV) | payer OTHER, SELFPAY | PROVIDERS: Admitting Provider Student in an Organized Health Care Education/Training Program; Emergency Provider Internal Medicine; Visit Provider Student in an Organized Health Care Education/Training Program | DX: L03.113 Cellulitis of right upper limb (principal) | CPT/HCPCS: 99222; 99231; 99239 ==